=== PATIENT | female | born 1950 | race Caucasian/White ===

== ENCOUNTER → 2018-11-24 | Outpatient (CLI) | payer BC, MEDICARE ==
[2018-11-27 11:06] LABS: ANA Pattern Homogeneous
== END | disposition home or self-care (01) ==
LOC: LABWHC1 14:34
PROVIDERS: ATTEND Physician Assistant Medical
DX: L93.0 Discoid lupus erythematosus (principal)
CPT/HCPCS: 36415; 86038; 86039

== ENCOUNTER 2021-07-09 12:07 | Inpatient (IN) | payer MEDICARE, BC ==
--- NOTE | 2021-07-09 13:58 | ED ---
General Adult HPI - General Chief complaint: Upper Respiratory Infection Stated complaint: CICI Time Seen by Provider: 07/09/21 12:46 Source: patient Mode of arrival: EMS - History of Present Illness Initial comments: 71-year-old female presents to the emergency department as a transfer from [facility]. She was hospitalized there 6 weeks ago for pneumonia and sent to [facility] where they changed her pacemaker per . She is discharged home on antibiotics and has finished them at this time. Over the past day the patient has become more lethargic and confused. She normally uses 2L oxygen as needed. Patient went into [facility] and was found to be hypoxic. Laboratory studies were completed which were relatively unremarkable. Chest x-ray demonstrated right basilar opacities. Patient transferred to our facility due to need for higher level of oxygen. Patient is able to answer questions properly. Denies any chest pain. Admits to a nonproductive cough which has been chronic since her pneumonia diagnosis. No lower extremity swelling. No other alleviating, precipitating or modifying factors - Related Data Home Medications Medication Instructions Recorded Confirmed ALPRAZolam [Xanax] 1 mg PO TID PRN 07/09/21 07/09/21 Beets Supplement 500mg 500 mg PO DAILY 07/09/21 07/09/21 Cholecalciferol [Vitamin D3 (25 25 mcg PO DAILY 07/09/21 07/09/21 Mcg = 1000 Iu)] Collagen + Biotin 1 cap PO DAILY 07/09/21 07/09/21 Cyanocobalamin [Vitamin B-12] 500 mcg PO DAILY 07/09/21 07/09/21 Ferrous Gluconate 324 mg PO DAILY 07/09/21 07/09/21 Furosemide [Lasix] 40 mg PO DAILY 07/09/21 07/09/21 HYDROcodone/APAP 10-325MG [[place] 1 tab PO QID PRN 07/09/21 07/09/21 10-325] Hydroxychloroquine Sulfate 200 mg PO DAILY 07/09/21 07/09/21 [Plaquenil] Losartan [Cozaar] 50 mg PO DAILY 07/09/21 07/09/21 Simvastatin [Zocor] 20 mg PO DAILY 07/09/21 07/09/21 Spironolactone [Aldactone] 25 mg PO DAILY 07/09/21 07/09/21 Torsemide [Demadex] 20 mg PO DAILY 07/09/21 07/09/21 Warfarin [Coumadin] 2 mg PO DAILY 07/09/21 07/09/21 Zolpidem [Ambien] 10 mg PO HS 07/09/21 07/09/21 guaiFENesin-Coden 100-10MG/5ML 5 ml PO TID PRN 07/09/21 07/09/21 [Robitussin AC] minoxidiL 1.25 mg PO DAILY 07/09/21 07/09/21 Allergies Allergy/AdvReac Type Severity Reaction Status Date / Time SURGICAL TAPE Allergy BLISTERS Uncoded 07/09/21 16:05 Review of Systems ROS Statement: Those systems with pertinent positive or pertinent negative responses have been documented in the HPI. ROS Other: All systems not noted in ROS Statement are negative. Past Medical History Past Medical History: COPD - Past Family History Mother Family Medical History: Myocardial Infarction ([place]) Father Family Medical History: Myocardial Infarction ([place]) General Exam General appearance: alert, in no apparent distress Head exam: Present: atraumatic, normocephalic, normal inspection Eye exam: Present: normal appearance, PERRL, EOMI. Absent: scleral icterus, conjunctival injection, periorbital swelling ENT exam: Present: normal exam, mucous membranes moist Neck exam: Present: normal inspection. Absent: tenderness, meningismus, lymphadenopathy Respiratory exam: Present: rales, accessory muscle use, decreased breath sounds, other (deep, wet cough). Absent: respiratory distress, wheezes, rhonchi, stridor Cardiovascular Exam: Present: regular rate, normal rhythm, normal heart sounds. Absent: systolic murmur, diastolic murmur, rubs, gallop, clicks GI/Abdominal exam: Present: soft, normal bowel sounds. Absent: distended, tenderness, guarding, rebound, rigid Extremities exam: Present: normal inspection, full ROM, normal capillary refill. Absent: tenderness, pedal edema, joint swelling, calf tenderness Back exam: Present: normal inspection Neurological exam: Present: alert, oriented X3, CN II-XII intact Psychiatric exam: Present: normal affect, normal mood Skin exam: Present: warm, dry, intact, normal color. Absent: rash Course Vital Signs 07/09/21 07/09/21 07/09/21 12:13 14:27 15:07 Temperature 98.3 F Pulse Rate 71 71 71 Pulse Rate [ Pulse Oximetery ] Respiratory 20 14 Rate Blood Pressure 88/42 92/58 Blood Pressure [Left Arm] O2 Sat by Pulse 98 96 Oximetry 07/09/21 07/09/21 07/09/21 15:19 16:40 17:11 Temperature 98 F Pulse Rate 73 71 Pulse Rate [ 74 Pulse Oximetery ] Respiratory 16 28 H Rate Blood Pressure 97/52 Blood Pressure 93/44 [Left Arm] O2 Sat by Pulse 95 96 Oximetry 07/09/21 18:06 Temperature 97.8 F Pulse Rate 71 Pulse Rate [ Pulse Oximetery ] Respiratory 14 Rate Blood Pressure 84/44 Blood Pressure [Left Arm] O2 Sat by Pulse 98 Oximetry EKG Findings - EKG Comments: EKG Findings:: EKG demonstrates electronic ventricular pacemaker with a rate of 71. QRS 186. QTC of 501. Pacemaker captures appropriately. No acute ST segment elevations Medical Decision Making - Medical Decision Making Upon arrival patient was placed into room 27. A thorough history and physical exam was performed. I did view the patient's laboratory studies. She does arrive on 6 L nasal cannula and is saturating 96%. I did repeat laboratory studies and added on a BNP. Hemoglobin 9.8. Creatinine 1.78. BNP 5500. Chest x-ray had shown bibasilar opacities. I did follow this up with a CT of the chest which demonstrates prominent bilateral pulmonary abnormalities. I did order azithromycin and Zosyn on the patient as she was recently on antibiotics. I recommended admission and therefore I spoke with Dr. Leonardo who agreed to admit the patient. She remained in stable condition was transported to the floor - Lab Data Result diagrams: 07/12/21 04:21 07/12/21 04:21 Lab Results 07/09/21 07/09/21 07/09/21 Range/Units 14:08 14:08 14:08 WBC 9.6 (3.8-10.6) k/uL RBC 3.48 L (3.80-5.40) m/uL Hgb 9.8 L (11.4-16.0) gm/dL Hct 31.4 L (34.0-46.0) % MCV 90.0 (80.0-100.0) fL MCH 28.1 (25.0-35.0) pg MCHC 31.2 (31.0-37.0) g/dL RDW 13.7 (11.5-15.5) % Plt Count 179 (150-450) k/uL MPV 9.4 Neutrophils % (Manual) 67 % Band Neuts % (Manual) 11 % Lymphocytes % (Manual) 13 % Monocytes % (Manual) 6 % Basophils % (Manual) 1 % Metamyelocytes % 1 % Myelocytes % 1 % Neutrophils # (Manual) 7.40 (1.3-7.7) k/uL Lymphocytes # (Manual) 1.25 (1.0-4.8) k/uL Monocytes # (Manual) 0.58 (0-1.0) k/uL Basophils # (Manual) 0.10 (0-0.2) k/uL Metamyelocytes # (Man) 0.10 H (0) k/uL Myelocytes # (Manual) 0.10 H (0) k/uL Nucleated RBCs 0 (0-0) /100 WBC Manual Slide Review Performed Hypochromasia Slight Sodium 141 (137-145) mmol/L Potassium 4.6 (3.5-5.1) mmol/L Chloride 113 H (98-107) mmol/L Carbon Dioxide 19 L (22-30) mmol/L Anion Gap 9 mmol/L BUN 27 H (7-17) mg/dL Creatinine 1.78 H (0.52-1.04) mg/dL Est GFR (CKD-EPI)AfAm 32 (>60 ml/min/1.73 sqM) Est GFR (CKD-EPI)NonAf 28 (>60 ml/min/1.73 sqM) Glucose 106 H (74-99) mg/dL Calcium 8.3 L (8.4-10.2) mg/dL Total Bilirubin 0.6 (0.2-1.3) mg/dL AST 23 (14-36) U/L ALT 9 (4-34) U/L Alkaline Phosphatase 59 (38-126) U/L NT-Pro-B Natriuret Pep 5500 pg/mL Total Protein 6.2 L (6.3-8.2) g/dL Albumin 3.1 L (3.5-5.0) g/dL Disposition Clinical Impression: Pneumonia, Hypoxia, Recurrent pneumonia, Heart failure Disposition: ADMITTED IP TO THIS HOSP Condition: Stable Is patient prescribed a controlled substance at d/c from ED?: No Decision to Admit Reason: Admit from EC Decision Date: 07/09/21 Decision Time: 15:51
[2021-07-09 14:26] LABS: Albumin 3.1 g/dL (3.5-5.0); Calcium 8.3 mg/dL (8.4-10.2); Potassium 4.6 mmol/L (3.5-5.1); Total Bilirubin 0.6 mg/dL (0.2-1.3); Total Protein 6.2 g/dL (6.3-8.2)
[2021-07-09 14:34] LABS: HCT 31.4 % (34.0-46.0); HGB 9.8 gm/dL (11.4-16.0); Hypochromasia Slight; MCH 28.1 pg (25.0-35.0); MCHC 31.2 g/dL (31.0-37.0); Mean Platelet Volume 9.4; Platelet Count 179 k/uL (150-450); RBC 3.48 m/uL (3.80-5.40); RDW 13.7 % (11.5-15.5); WBC 9.6 k/uL (3.8-10.6)
[2021-07-09] MEDS ORDERED: IPRATROPIUM-ALBUTEROL 3 ML NEB INHALATION STA (14:38)
[2021-07-09 15:26] LABS: Band Neutrophils % 11 %; Lymphocytes # (M) 1.25 k/uL (1.0-4.8); Metamyelocytes % 1 %; Monocytes # (M) 0.58 k/uL (0-1.0); Myelocytes % 1 %; Neutrophils % (M) 67 %; Nucleated Red Blood Cells 0 /100 WBC (0-0); Total Cells Counted 100
[2021-07-09] MEDS ORDERED: PNEUMONIA PROTOCOL UTILIZED 1 EACH MISC PO PRN (15:51)
[2021-07-09] MEDS: AZITHROMYCIN 500 MG in SODIUM CHLORIDE 0.9% 250 ML IVPB SCH (16:33)
[2021-07-09] MEDS ORDERED: guaiFENesin-Coden 100-10MG/5ML 10 ML CUP PO PRN (17:21)
[2021-07-09] MEDS ORDERED: HYDROcodone/APAP 10-325MG 1 EACH TAB PO PRN (17:21)
[2021-07-09] MEDS ORDERED: ALPRAZolam 1 MG TAB PO PRN (17:21)
[2021-07-09] MEDS: PIPERACILLIN-TAZOBACTAM 3.375 GM in SODIUM CHLORIDE 0.9% 100 ML IVPB SCH (18:02)
--- NOTE | 2021-07-09 18:07 | CT ---
EXAMINATION TYPE: CT chest wo con DATE OF EXAM: 07/09/2021 COMPARISON: Outside chest radiographs 07/09/2021 HISTORY: 71 M abnormal xray, SOB CT DLP: 200.6 mGycm. Automated Exposure Control for Dose Reduction was Utilized. TECHNIQUE: CT scan of the thorax is performed without IV contrast. FINDINGS: AIRWAYS: Unremarkable. LUNGS: In the left lung base posteriorly there is dense consolidation with air bronchograms, affectin g approximately one third of the left lower lobe volume, this finding can correlate with a clinical d iagnosis of the left lower lobe bronchopneumonia. There are also scattered bilateral ill-defined added opacities in the bilateral upper and mid lung zo luis alfredo, with relative sparing of the right lower lobe, this nonspecific finding can correlate with a cli nical diagnosis of multifocal. There is no dependent interstitial pattern to suggest pulmonary edema. Post-CABG sutures and mediastinal clips, cardiac pacemaker, and mitral valve prosthesis noted. PLEURAL SPACES: There is no pleural effusion or pneumothorax seen. MEDIASTINUM: There is [id number] cardiomegaly with marked left atrial enlargement. There are le ft and right coronary calcifications.4 There is no pericardial effusion. Pulmonary arterial vasculatu re is dilated, which can correlate with pulmonary hypertension. SKELETAL STRUCTURES: No acute focal finding. OTHER: No additional significant abnormality is seen. IMPRESSION: 1. Prominent bilateral pulmonary abnormalities for which follow-up CT in 6 weeks is recommended to mary messina, unless indicated sooner a clinical basis. 2. Mediastinal findings as above.
--- NOTE | 2021-07-09 20:32 | HP ---
HISTORY AND PHYSICAL This is a 71-year-old white female who came from [place] with pneumonia. Six weeks ago at [facility] they had a pacemaker changed back then, discharged home on antibiotics. She became more lethargic and . She was admitted with severe lower lobe pneumonia in most of her lung, hypoxemia, transferred from [place]. CT of the chest clearly shows broad-spectrum pneumonia in her lower lobe. Fourteen-point review of systems: Cough, congestion, shortness of breath, dyspnea. Please see further orders. Past medical history: COPD. Medications: See list. They were reviewed. CT scan of the chest reviewed. Echo reviewed. Temperature 98.3, pulse 70 to 71, respiratory rate 20s to 16, blood pressure 80s to 90s over 40s to 50s, O2 96 to 98. Lungs with scattered rhonchi and wheeze. Cardiovascular S1, S2. weak, fatigued. Dry skin turgor. Dry mucous membranes. Labs were reviewed. Psych: Poor mood and affect. BUN is 27, creatinine 1.78. ASSESSMENT: 1. Pneumonia. 2. Hypoxemia. 3. Acute hypoxemic respiratory distress secondary to pneumonia. 4. Congestive heart failure. 5. Coronary artery disease. 6. Recurrent pneumonia. Broad-spectrum antibiotics include Zosyn, azithromycin. Infectious disease and pulmonary consults. Cardiology consult for CHF. MMNURIAL / SALTYN: [id number] /
[2021-07-09] MEDS: IPRATROPIUM-ALBUTEROL 3 ML NEB INHALATION SCH ×4 (20:53→23:54)
[2021-07-09] MEDS ORDERED: ZOLPIDEM 10 MG TAB PO SCH (21:00)
[2021-07-10] MEDS: ZOLPIDEM 5 MG TAB PO SCH ×2 (00:34→21:30)
[2021-07-10] MEDS: PIPERACILLIN-TAZOBACTAM 3.375 GM in SODIUM CHLORIDE 0.9% 100 ML IVPB SCH ×3 (00:55→16:48)
[2021-07-10] MEDS: IPRATROPIUM-ALBUTEROL 3 ML NEB INHALATION SCH ×5 (04:09→21:15)
[2021-07-10 06:56] LABS: Albumin 2.9 g/dL (3.5-5.0); Calcium 8.5 mg/dL (8.4-10.2); Potassium 4.3 mmol/L (3.5-5.1); Total Bilirubin 0.9 mg/dL (0.2-1.3); Total Protein 5.9 g/dL (6.3-8.2)
[2021-07-10 07:10] LABS: HCT 31.4 % (34.0-46.0); HGB 9.9 gm/dL (11.4-16.0); Hypochromasia Moderate; MCH 28.6 pg (25.0-35.0); MCHC 31.7 g/dL (31.0-37.0); MCV 90.2 fL (80.0-100.0); Mean Platelet Volume 10.8; Platelet Count 199 k/uL (150-450); RBC 3.48 m/uL (3.80-5.40); RDW 14.2 % (11.5-15.5); WBC 3.6 k/uL (3.8-10.6)
[2021-07-10] MEDS ORDERED: FUROSEMIDE 40 MG TAB PO SCH (09:00)
[2021-07-10] MEDS ORDERED: [UNRECOGNIZED DRUG - OTHER] PO SCH (09:00)
[2021-07-10] MEDS: minoxidiL 2.5 MG TAB PO SCH (09:13)
[2021-07-10] MEDS: HYDROXYCHLOROQUINE SULFATE 200 MG TAB PO SCH (09:13)
[2021-07-10] MEDS: SPIRONOLACTONE 25 MG TAB PO SCH (09:13)
[2021-07-10] MEDS: FERROUS SULFATE 325 MG TAB PO SCH (09:13)
[2021-07-10] MEDS: AZITHROMYCIN 500 MG in SODIUM CHLORIDE 0.9% 250 ML IVPB SCH (09:13)
[2021-07-10] MEDS: ATORVASTATIN 10 MG TAB PO SCH (09:13)
[2021-07-10] MEDS: CHOLECALCIFEROL 25 MCG (1000 IU) TABLET PO SCH (09:13)
[2021-07-10] MEDS: LOSARTAN 50 MG TAB PO SCH (09:13)
[2021-07-10] MEDS ORDERED: FUROSEMIDE 10 MG/ML 4 ML VIAL IV STA (09:25)
[2021-07-10 09:35] LABS: Band Neutrophils % 20 %; Basophils # (M) 0.04 k/uL (0-0.2); Eosinophils # (M) 0.04 k/uL (0-0.7); Lymphocytes # (M) 0.68 k/uL (1.0-4.8); Metamyelocytes # (M) 0.11 k/uL (0); Metamyelocytes % 3 %; Monocytes # (M) 0.18 k/uL (0-1.0); Myelocytes # (M) 0.07 k/uL (0); Myelocytes % 2 %; Neutrophils % (M) 52 %; Nucleated Red Blood Cells 0 /100 WBC (0-0); Total Cells Counted 200
--- NOTE | 2021-07-10 11:24 | CA ---
Transthoracic Echo Report Name: Argelia Nicholson Age: 71 Gender: F : 1950 Exam Date: 07/10/2021 08:46 Exam Location: [place] [facility] Ht (in): 65 Wt (lb): 134 Ordering Physician: Damaris Vyas Attending/Referring Phys: [id number], Lilliam Crtts Fiona Dutton, GIAN Procedure CPT: Indications: LV function Cardiac Hx: Technical Quality: Fair Contrast 1: Total Dose (mL): Contrast 2: Total Dose (mL): MEASUREMENTS (Male / Female) Normal Values 2D ECHO LV Diastolic Diameter PLAX 4.9 cm 4.2 - 5.9 / 3.9 - 5.3 cm LV Systolic Diameter PLAX 2.9 cm IVS Diastolic Thickness 1.2 cm 0.6 - 1.0 / 0.6 - 0.9 cm LVPW Diastolic Thickness 1.2 cm 0.6 - 1.0 / 0.6 - 0.9 cm LV Relative Wall Thickness 0.5 RV Internal Dim ED PLAX 3.6 cm LVOT Diameter 1.8 cm LA Systolic Diameter LX 5.2 cm 3.0 - 4.0 / 2.7 - 3.8 cm LA Volume 92.5 cm 18 - 58 / 22 - 52 cm M-MODE Aortic Root Diameter MM 2.9 cm AV Cusp Separation MM 1.9 cm DOPPLER AV Peak Velocity 251.5 cm/s AV Peak Gradient 25.3 mmHg AV Mean Velocity 172.0 cm/s AV Mean Gradient 13.8 mmHg AV Velocity Time Integral 44.8 cm LVOT Peak Velocity 211.5 cm/s LVOT Peak Gradient 17.9 mmHg AV Area Cont Eq pk 2.1 cm MV Peak Velocity 179.8 cm/s MV Peak Gradient 12.9 mmHg MV Mean Velocity 87.8 cm/s MV Mean Gradient 4.2 mmHg MV Velocity Time Integral 49.0 cm MV Area PHT 3.2 cm MV Deceleration Time 397.3 ms TR Peak Velocity 269.7 cm/s TR Peak Gradient 29.1 mmHg Right Ventricular Systolic Press 33.3 mmHg FINDINGS Left Ventricle Left ventricular ejection fraction is estimated at 60-65 %. Mildly increased septal wall thickness. Mildly increased posterior wall thickness. Right Ventricle Mild right ventricular dilatation. Right ventricular systolic pressure estimated at 33 mm hg. Right Atrium Normal right atrial size. Left Atrium Severely increased left atrial diameter. Severely increased left atrial volume. Mitral Valve Mild prosthetic mitral valve regurgitation. Mitral valve thickened. Aortic Valve Mild aortic stenosis with a peak gradient of 25 mmHg and a mean gradient of 14aortic valve sclerosis. mmHg. Tricuspid Valve Mild tricuspid regurgitation. Pulmonic Valve Pulmonic valve not well visualized. Pericardium No pericardial effusion. Aorta CONCLUSIONS #1. Mild concentric left ventricle hypertrophy with preserved LV function and apical motion of the septum probably related to previous open-heart surgery. #2. Status post mitral valve replacement. Mild mitral regurgitation. #3. Mild aortic stenosis with sclerosis of the valve leaflets. #4. Mild right ventricular dilatation and mild pulmonary hypertension. #5. Mild tricuspid regurgitation Previewed by: Dr. Valeri Dudley MD (Electronically Signed) Final Date: 10 July 2021 11:22
--- NOTE | 2021-07-10 12:05 | P.CNPUL ---
History of Present Illness Consult date: 07/10/21 Requesting physician: Sampson Person Reason for consult: dyspnea, cough, COPD, hypoxemia, pneumonia, abnormal CXR/CT Chief complaint: Shortness of breath and cough. History of present illness: Pulmonary consult dated 07/10/2021. 69-year-old female, poor historian, who apparently was sent to the emergency department, from [facility] for pneumonia. The patient was recently also at [facility], for a pacemaker procedure. The patient complains of increasing shortness of breath, cough, congestion, and low saturations. She typically uses oxygen at 2 L/m, as needed. She is a heavy smoker in the past. She was admitted with a left lower lobe. She's currently on 6 L nasal cannula. She is not receiving any IV fluids. White count 3.6, hemoglobin 9.9, hematocrit 31.4, and platelet count 199,000. Sodium 141, potassium 4.3, chlorides 108, CO2 20, anion gap 13, BUN 35, and creatinine 1.93. Troponins were 0.[address] showed significant consolidation in the left lung base. Other findings in the other lung contreras were noted. Review of Systems REVIEW OF SYSTEMS: CONSTITUTIONAL: [Negative.] NEUROLOGIC: [ Negative.] HEENT: [ Negative.] CARDIAC: [Negative.] PULMONARY: Shortness of breath, chest tightness, cough, wheezing, and phlegm production. GI: [Negative.] : [Negative.] RHEUMATOLOGIC: [ Negative.] IMMUNOLOGIC: [ Negative.] ENDOCRINE: [Negative. ] DERMATOLOGIC: [Negative.] Past Medical History Past Medical History: COPD History of Any Multi-Drug Resistant Organisms: None Reported Past Surgical History: Cardiac Valve Replacement, Heart Catheterization, Pacemaker Past Anesthesia/Blood Transfusion Reactions: No Reported Reaction Type of Cardiac Device: Permanent Pacemaker, AICD Device Placement Date:: may 2021 Past Psychological History: No Psychological Hx Reported Smoking Status: Former smoker - Past Family History Mother Family Medical History: Myocardial Infarction ([place]) Father Family Medical History: Myocardial Infarction ([place]) Medications and Allergies Home Medications Medication Instructions Recorded Confirmed Type ALPRAZolam [Xanax] 1 mg PO TID PRN 07/09/21 07/09/21 History Beets Supplement 500mg 500 mg PO DAILY 07/09/21 07/09/21 History Cholecalciferol [Vitamin D3 (25 25 mcg PO DAILY 07/09/21 07/09/21 History Mcg = 1000 Iu)] Collagen + Biotin 1 cap PO DAILY 07/09/21 07/09/21 History Cyanocobalamin [Vitamin B-12] 500 mcg PO DAILY 07/09/21 07/09/21 History Ferrous Gluconate 324 mg PO DAILY 07/09/21 07/09/21 History Furosemide [Lasix] 40 mg PO DAILY 07/09/21 07/09/21 History HYDROcodone/APAP 10-325MG [[place] 1 tab PO QID PRN 07/09/21 07/09/21 History 10-325] Hydroxychloroquine Sulfate 200 mg PO DAILY 07/09/21 07/09/21 History [Plaquenil] Losartan [Cozaar] 50 mg PO DAILY 07/09/21 07/09/21 History Simvastatin [Zocor] 20 mg PO DAILY 07/09/21 07/09/21 History Spironolactone [Aldactone] 25 mg PO DAILY 07/09/21 07/09/21 History Torsemide [Demadex] 20 mg PO DAILY 07/09/21 07/09/21 History Warfarin [Coumadin] 2 mg PO DAILY 07/09/21 07/09/21 History Zolpidem [Ambien] 10 mg PO HS 07/09/21 07/09/21 History guaiFENesin-Coden 100-10MG/5ML 5 ml PO TID PRN 07/09/21 07/09/21 History [Robitussin AC] minoxidiL 1.25 mg PO DAILY 07/09/21 07/09/21 History Allergies Allergy/AdvReac Type Severity Reaction Status Date / Time SURGICAL TAPE Allergy BLISTERS Uncoded 07/09/21 16:05 Physical Exam Osteopathic Statement: *. No significant issues noted on an osteopathic structural exam other than those noted in the History and Physical/Consult. Vitals: Vital Signs Temp Pulse Pulse Resp BP BP Pulse Ox 07/10/21 11:44 97.5 F L 74 27 H 90/51 95 07/10/21 11:03 72 07/10/21 10:41 72 07/10/21 10:06 72 24 102/53 96 07/10/21 09:12 97.8 F 71 26 H 91/43 98 07/10/21 08:00 84 26 H 07/10/21 07:49 82 07/10/21 04:24 73 07/10/21 04:16 92 L 07/10/21 04:13 71 07/10/21 04:00 71 18 136/84 93 L 07/10/21 02:00 18 07/10/21 00:00 97.5 F L 72 18 88/64 96 07/09/21 21:54 72 07/09/21 21:47 96 07/09/21 21:46 74 07/09/21 20:00 97.4 F L 75 20 90/44 95 07/09/21 18:06 97.8 F 71 14 84/44 98 07/09/21 17:11 98 F 74 28 H 93/44 96 07/09/21 16:40 71 16 97/52 95 07/09/21 15:19 73 07/09/21 15:07 71 07/09/21 14:27 71 14 92/58 96 07/09/21 12:13 98.3 F 71 20 88/42 98 Intake and Output 07/09/21 07/10/21 07/10/21 22:59 06:59 14:59 Intake Total 700 Balance 700 Intake: IV 100 Piperacillin-Tazobactam 3 100 .375 gm In Sodium Chloride 0.9% 100 ml @ 25 mls/hr IVPB Q8HR [facility] Rx# :[id number] Oral 600 Other: Voiding Method Bedpan # Voids 3 Weight 60.781 kg No acute distress, oriented 3. Saturations are 96% on BiPAP. HEENT examination is grossly unremarkable. Neck supple. Full range of motion. No adenopathy thyromegaly or neck vein distention. Cardiovascular examination reveals regular rhythm rate. S1-S2 normal. No S3 or S4. No discernible murmur noted. Heart sounds are very distant. Heart rate 74 bpm. Lungs reveal coarse bilateral inspiratory and expiratory rhonchi. No distinct wheezes or crackles. She is a very congested wet cough, which is quite frequent. Breath sounds are equal bilaterally. Abdomen soft bowel sounds are heard. No masses or tenderness. Extremities are intact. No cyanosis clubbing or edema. Skin is without rash or lesion. Neurologic examination is brief but nonfocal. Results - Laboratory Findings CBC and BMP: 07/10/21 05:26 07/10/21 05:26 Abnormal lab findings: Abnormal Labs 07/09/21 07/09/21 07/10/21 14:08 14:08 05:26 WBC 3.6 L RBC 3.48 L 3.48 L Hgb 9.8 L 9.9 L Hct 31.4 L 31.4 L Lymphocytes # (Manual) 0.68 L Metamyelocytes # (Man) 0.10 H 0.11 H Myelocytes # (Manual) 0.10 H 0.07 H Chloride 113 H Carbon Dioxide 19 L BUN 27 H Creatinine 1.78 H Glucose 106 H Calcium 8.3 L Troponin I Total Protein 6.2 L Albumin 3.1 L 07/10/21 07/10/21 07/10/21 05:26 05:26 08:30 WBC RBC Hgb Hct Lymphocytes # (Manual) Metamyelocytes # (Man) Myelocytes # (Manual) Chloride 108 H Carbon Dioxide 20 L BUN 35 H Creatinine 1.93 H Glucose Calcium Troponin I 0.545 H* 0.551 H* Total Protein 5.9 L Albumin 2.9 L - Diagnostic Findings Chest x-ray: image reviewed CT scan - chest: image reviewed Assessment and Plan Assessment: Acute hypoxemic respiratory failure secondary to left lower lobe pneumonia. History of COPD from previous significant tobacco use. History of hypertension. History of hyperlipidemia. Status post pacemaker implantation. Vague history of CHF. Plan: Plan dated 07/10/2021. Currently, the patient's on azithromycin and Zosyn. The patient is also getting any treatments with albuterol sulfate and ipratropium bromide. We will continue to follow make recommendations were appropriate. Prognosis is certainly guarded. The CAT scan, x-rays, and medications are all reviewed. The patient should have outpatient evaluation of her chronic lung disease once she is better and is discharged. Infectious disease should see this patient. Time with Patient: Greater than 30
--- NOTE | 2021-07-10 12:08 | P.CRDCN ---
History of Present Illness Consult date: 07/10/21 History of present illness: HISTORY OF PRESENT ILLNESS: This is a 71-year-old female with a past medical history significant for congestive heart failure, hyperlipidemia, hypertension, and pacemaker insertion. 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 We have been asked to see the patient in consultation for congestive heart failure. Patient examined at the bedside. Patient presented to the hospital secondary to shortness of breath. Patient denies chest pain or pressure. She denies dizziness or lightheadedness. She reports shortness of breath this morning time of examination. She has a frequent cough noted during examination. * EKG reveals ventricular paced rhythm with underlying atrial fibrillation * CT chest: Prominent bilateral pulmonary abnormalities for which CT follow-up in 6 weeks is recommended to further characterize. Possible left lower lobe bronchopneumonia * Laboratory data: WBC 3.6. Hemoglobin 9.9. Platelet count 199. Sodium 141. Potassium 4.3. BUN 35. Creatinine 1.93. Troponin 0.545. ProBNP 5500. * Current home cardiac medications include Coumadin 2 mg daily, Demadex 20 mg daily, Aldactone 25 mg daily, Zocor 20 mg daily, losartan 50 mg daily, Lasix 40 mg daily, and Minoxidil 1.25 mg daily REVIEW OF SYSTEMS: At the time of my exam: CONSTITUTIONAL: Denies fever or chills. HEENT: Denies blurred vision, vision changes, or eye pain. Denies hemoptysis CARDIOVASCULAR: Denies chest pain. Denies orthopnea. Denies PND. Denies palpitations RESPIRATORY: Denies shortness of breath. GASTROINTESTINAL: Denies abdominal pain. Denies nausea or vomiting. HEMATOLOGIC: Denies bleeding disorders. GENITOURINARY: Denies any blood in urine. SKIN: Denies pruitis. Denies rash. PHYSICAL EXAM: VITAL SIGNS: Reviewed. GENERAL: Well-developed in no acute distress. HEENT: Head is normocephalic. Pupils are equal, round. Sclerae anicteric. Mucous membranes of the mouth are moist. Neck supple. No JVD or thyromegaly LUNGS: Respirations even and unlabored. Lungs diminished with rhonchi HEART: Regular rate and rhythm. S1 and S2 heard. ABDOMEN: Soft. Nondistended. Nontender. EXTREMITIES: Normal range of motion. No clubbing or cyanosis. Peripheral pulses intact. Trace lower extremity edema NEUROLOGIC: Awake and alert. ASSESSMENT: Shortness of breath Recurrent pneumonia Acute hypoxic respiratory failure Acute kidney injury, baseline unknown Abnormal troponins, likely secondary to type II CA, no evidence of acute coronary syndrome Acute on chronic congestive heart failure, type unknown, echo pending Coronary artery disease with previous CABG Hypertension Hyperlipidemia History of pacemaker insertion Paroxysmal atrial fibrillation PLAN: Obtain 2-D echo to assess cardiac structure and function Resume home cardiac medications Increase Lasix to 60 mg by mouth daily Pulmonary consulted for evaluation of pneumonia Further recommendations pending patient's course Nurse practitioner note has been reviewed by physician. Signing provider agrees with the documented findings, assessment, and plan of care. Past Medical History Past Medical History: COPD History of Any Multi-Drug Resistant Organisms: None Reported Past Surgical History: Cardiac Valve Replacement, Heart Catheterization, Pacemaker Past Anesthesia/Blood Transfusion Reactions: No Reported Reaction Type of Cardiac Device: Permanent Pacemaker, AICD Device Placement Date:: may 2021 Past Psychological History: No Psychological Hx Reported Smoking Status: Former smoker - Past Family History Mother Family Medical History: Myocardial Infarction ([place]) Father Family Medical History: Myocardial Infarction ([place]) Medications and Allergies Home Medications Medication Instructions Recorded Confirmed Type ALPRAZolam [Xanax] 1 mg PO TID PRN 07/09/21 07/09/21 History Beets Supplement 500mg 500 mg PO DAILY 07/09/21 07/09/21 History Cholecalciferol [Vitamin D3 (25 25 mcg PO DAILY 07/09/21 07/09/21 History Mcg = 1000 Iu)] Collagen + Biotin 1 cap PO DAILY 07/09/21 07/09/21 History Cyanocobalamin [Vitamin B-12] 500 mcg PO DAILY 07/09/21 07/09/21 History Ferrous Gluconate 324 mg PO DAILY 07/09/21 07/09/21 History Furosemide [Lasix] 40 mg PO DAILY 07/09/21 07/09/21 History HYDROcodone/APAP 10-325MG [[place] 1 tab PO QID PRN 07/09/21 07/09/21 History 10-325] Hydroxychloroquine Sulfate 200 mg PO DAILY 07/09/21 07/09/21 History [Plaquenil] Losartan [Cozaar] 50 mg PO DAILY 07/09/21 07/09/21 History Simvastatin [Zocor] 20 mg PO DAILY 07/09/21 07/09/21 History Spironolactone [Aldactone] 25 mg PO DAILY 07/09/21 07/09/21 History Torsemide [Demadex] 20 mg PO DAILY 07/09/21 07/09/21 History Warfarin [Coumadin] 2 mg PO DAILY 07/09/21 07/09/21 History Zolpidem [Ambien] 10 mg PO HS 07/09/21 07/09/21 History guaiFENesin-Coden 100-10MG/5ML 5 ml PO TID PRN 07/09/21 07/09/21 History [Robitussin AC] minoxidiL 1.25 mg PO DAILY 07/09/21 07/09/21 History Allergies Allergy/AdvReac Type Severity Reaction Status Date / Time SURGICAL TAPE Allergy BLISTERS Uncoded 07/09/21 16:05 Physical Exam Vitals: Vital Signs Temp Pulse Pulse Resp BP BP Pulse Ox 07/10/21 08:00 84 07/10/21 07:49 82 07/10/21 04:24 73 07/10/21 04:16 92 L 07/10/21 04:13 71 07/10/21 04:00 71 18 136/84 93 L 07/10/21 02:00 18 07/10/21 00:00 97.5 F L 72 18 88/64 96 07/09/21 21:54 72 07/09/21 21:47 96 07/09/21 21:46 74 07/09/21 20:00 97.4 F L 75 20 90/44 95 07/09/21 18:06 97.8 F 71 14 84/44 98 07/09/21 17:11 98 F 74 28 H 93/44 96 07/09/21 16:40 71 16 97/52 95 07/09/21 15:19 73 07/09/21 15:07 71 07/09/21 14:27 71 14 92/58 96 07/09/21 12:13 98.3 F 71 20 88/42 98 Intake and Output 07/09/21 07/10/21 07/10/21 22:59 06:59 14:59 Intake Total 700 Balance 700 Intake: IV 100 Piperacillin-Tazobactam 3 100 .375 gm In Sodium Chloride 0.9% 100 ml @ 25 mls/hr IVPB Q8HR [facility] Rx# :[id number] Oral 600 Other: # Voids 3 Weight 60.781 kg Results 07/10/21 05:26 07/10/21 05:26 Cardiac Enzymes 07/09/21 07/10/21 07/10/21 Range/Units 14:08 05:26 05:26 AST 23 23 (14-36) U/L Troponin I 0.545 H* (0.000-0.034) ng/mL CBC 07/09/21 07/10/21 Range/Units 14:08 05:26 WBC 9.6 3.6 L (3.8-10.6) k/uL RBC 3.48 L 3.48 L (3.80-5.40) m/uL Hgb 9.8 L 9.9 L (11.4-16.0) gm/dL Hct 31.4 L 31.4 L (34.0-46.0) % Plt Count 179 199 (150-450) k/uL Comprehensive Metabolic Panel 07/09/21 07/10/21 Range/Units 14:08 05:26 Sodium 141 141 (137-145) mmol/L Potassium 4.6 4.3 (3.5-5.1) mmol/L Chloride 113 H 108 H (98-107) mmol/L Carbon Dioxide 19 L 20 L (22-30) mmol/L BUN 27 H 35 H (7-17) mg/dL Creatinine 1.78 H 1.93 H (0.52-1.04) mg/dL Glucose 106 H 95 (74-99) mg/dL Calcium 8.3 L 8.5 (8.4-10.2) mg/dL AST 23 23 (14-36) U/L ALT 9 11 (4-34) U/L Alkaline Phosphatase 59 56 (38-126) U/L Total Protein 6.2 L 5.9 L (6.3-8.2) g/dL Albumin 3.1 L 2.9 L (3.5-5.0) g/dL Current Medications Generic Name Dose Route Start Last Admin Trade Name Freq PRN Reason Stop Dose Admin Acetaminophen 650 mg 07/09/21 15:51 Acetaminophen Tab 325 Mg Tab PO Q4HR PRN Fever and/ or Pain Hydrocodone Bitart/Acetaminophen 1 each 07/09/21 17:21 Hydrocodone/Apap 10-325mg 1 Each Tab PO QID PRN Pain Albuterol/Ipratropium 3 ml 07/09/21 16:00 07/10/21 07:49 Ipratropium-Albuterol 3 Ml Neb INHALATION 3 ml RT-Q4H [facility] Administration Alprazolam 1 mg 07/09/21 17:21 Alprazolam 1 Mg Tab PO TID PRN Anxiety Atorvastatin Calcium 10 mg 07/10/21 09:00 Atorvastatin 10 Mg Tab PO DAILY [facility] Cholecalciferol 25 mcg 07/10/21 09:00 Cholecalciferol 25 Mcg (1000 Iu) Tablet PO DAILY [facility] Ferrous Sulfate 325 mg 07/10/21 09:00 Ferrous Sulfate 325 Mg Tab PO DAILY [facility] Furosemide 40 mg 07/10/21 09:00 Furosemide 40 Mg Tab PO DAILY [facility] Guaifenesin/Codeine Phosphate 5 ml 07/09/21 17:21 Guaifenesin-Coden 100-10mg/5ml 10 Ml Cup PO TID PRN Cough Hydroxychloroquine Sulfate 200 mg 07/10/21 09:00 Hydroxychloroquine Sulfate 200 Mg Tab PO DAILY [facility] Piperacillin Sod/Tazobactam 100 mls @ 25 mls/hr 07/09/21 16:00 07/10/21 00:55 Sod 3.375 gm/ Sodium Chloride IVPB 07/14/21 16:01 25 mls/hr Q8HR [facility] Administration Protocol Azithromycin 500 mg/ Sodium 250 mls @ 250 mls/hr 07/10/21 09:00 Chloride IVPB 07/11/21 09:59 DAILY [facility] Protocol Losartan Potassium 50 mg 07/10/21 09:00 Losartan 50 Mg Tab PO DAILY [facility] Minoxidil 1.25 mg 07/10/21 09:00 Minoxidil 2.5 Mg Tab PO DAILY [facility] Miscellaneous Information 1 each 07/09/21 15:51 Pneumonia Protocol Utilized 1 Each Misc PO ONCE PRN Per Protocol Spironolactone 25 mg 07/10/21 09:00 Spironolactone 25 Mg Tab PO DAILY [facility] Zolpidem Tartrate 10 mg 07/09/21 21:45 07/10/21 00:34 Zolpidem 5 Mg Tab PO Not Given HS [facility] Intake and Output 07/09/21 07/10/21 07/10/21 22:59 06:59 14:59 Intake Total 700 Balance 700 Intake: IV 100 Piperacillin-Tazobactam 3 100 .375 gm In Sodium Chloride 0.9% 100 ml @ 25 mls/hr IVPB Q8HR [facility] Rx# :[id number] Oral 600 Other: # Voids 3 Weight 60.781 kg 07/10/21 05:26 07/10/21 05:26
[2021-07-10 13:04] LABS: INR 1.4 (<1.2); Prothrombin Time 14.6 sec (9.0-12.0)
[2021-07-10 13:49] LABS: ABG Base Excess -8.4 mmol/L; ABG HCO3 19 mmol/L (21-25); ABG Oxygen Saturation 93.4 % (94-97); ABG PCO2 43 mmHg (35-45); ABG PH 7.25 (7.35-7.45); ABG PO2 70 mmHg (83-108); ABG TCO2 20 mmol/L (19-24); Allen Test Performed? Yes
[2021-07-10] MEDS ORDERED: WARFARIN 3 MG TAB PO ONE (18:00)
--- NOTE | 2021-07-10 23:40 | P.CONS ---
History of Present Illness - Reason for Consult Consult date: 07/10/21 HAP Requesting physician: Sampson Person - Chief Complaint Shortness of breath x few days - History of Present Illness Patient is a 71-year female with a past medical history significant for COPD recent admission at [facility] few weeks ago the patient was treated for pneumonia and the patient also have a pacemaker changed patient was discharged home on oral antibiotics the patient has completed however there has been mention the patient continued to have a problem with shortness of breath and cough the day of presentation to the hospital patient did have worsening of shortness of breath and she was not able to breathe EMS was called and the patient was taken to the [facility] the patient was noticed to be hypoxic chest x-ray with right basilar opacity patient was subsequently transferred to [facility] for further care on presentation to the hospital the patient was afebrile and no fever have been recorded subsequently patient did have a normal white count BNK was mildly elevated liver enzymes are normal troponins were elevated [place] PCR was negative blood cultures obtained which are currently pending patient did have a CT of the chest with mild to moderate cardiomegaly with marked atrial enlargement bilateral pulmonary abnormalities with a dense consolidation with air bronchogram left base patient was admitted to the hospital infectious disease was consulted for further management of antibiotic therapy most information has been obtained from the and review the chart at the patient was not able to provide any history Review of Systems Positive points has been mentioned in HPI complete review could not be obtained because of his underlying mental status Past Medical History Past Medical History: COPD History of Any Multi-Drug Resistant Organisms: None Reported Past Surgical History: Cardiac Valve Replacement, Heart Catheterization, Pacemaker Past Anesthesia/Blood Transfusion Reactions: No Reported Reaction Type of Cardiac Device: Permanent Pacemaker, AICD Device Placement Date:: may 2021 Past Psychological History: No Psychological Hx Reported Smoking Status: Former smoker - Past Family History Mother Family Medical History: Myocardial Infarction ([place]) Father Family Medical History: Myocardial Infarction ([place]) Medications and Allergies Home Medications Medication Instructions Recorded Confirmed Type ALPRAZolam [Xanax] 1 mg PO TID PRN 07/09/21 07/09/21 History Beets Supplement 500mg 500 mg PO DAILY 07/09/21 07/09/21 History Cholecalciferol [Vitamin D3 (25 25 mcg PO DAILY 07/09/21 07/09/21 History Mcg = 1000 Iu)] Collagen + Biotin 1 cap PO DAILY 07/09/21 07/09/21 History Cyanocobalamin [Vitamin B-12] 500 mcg PO DAILY 07/09/21 07/09/21 History Ferrous Gluconate 324 mg PO DAILY 07/09/21 07/09/21 History Furosemide [Lasix] 40 mg PO DAILY 07/09/21 07/09/21 History HYDROcodone/APAP 10-325MG [[place] 1 tab PO QID PRN 07/09/21 07/09/21 History 10-325] Hydroxychloroquine Sulfate 200 mg PO DAILY 07/09/21 07/09/21 History [Plaquenil] Losartan [Cozaar] 50 mg PO DAILY 07/09/21 07/09/21 History Simvastatin [Zocor] 20 mg PO DAILY 07/09/21 07/09/21 History Spironolactone [Aldactone] 25 mg PO DAILY 07/09/21 07/09/21 History Torsemide [Demadex] 20 mg PO DAILY 07/09/21 07/09/21 History Warfarin [Coumadin] 2 mg PO DAILY 07/09/21 07/09/21 History Zolpidem [Ambien] 10 mg PO HS 07/09/21 07/09/21 History guaiFENesin-Coden 100-10MG/5ML 5 ml PO TID PRN 07/09/21 07/09/21 History [Robitussin AC] minoxidiL 1.25 mg PO DAILY 07/09/21 07/09/21 History Allergies Allergy/AdvReac Type Severity Reaction Status Date / Time SURGICAL TAPE Allergy BLISTERS Uncoded 07/09/21 16:05 Physical Exam Vitals: Vital Signs Temp Pulse Pulse Resp BP BP Pulse Ox 07/10/21 11:44 97.5 F L 74 27 H 90/51 95 07/10/21 11:03 72 07/10/21 10:41 72 07/10/21 10:06 72 24 102/53 96 07/10/21 09:12 97.8 F 71 26 H 91/43 98 07/10/21 08:00 84 26 H 07/10/21 07:49 82 07/10/21 04:24 73 07/10/21 04:16 92 L 07/10/21 04:13 71 07/10/21 04:00 71 18 136/84 93 L 07/10/21 02:00 18 07/10/21 00:00 97.5 F L 72 18 88/64 96 07/09/21 21:54 72 07/09/21 21:47 96 07/09/21 21:46 74 07/09/21 20:00 97.4 F L 75 20 90/44 95 07/09/21 18:06 97.8 F 71 14 84/44 98 07/09/21 17:11 98 F 74 28 H 93/44 96 07/09/21 16:40 71 16 97/52 95 07/09/21 15:19 73 07/09/21 15:07 71 07/09/21 14:27 71 14 92/58 96 Intake and Output 07/09/21 07/10/21 07/10/21 22:59 06:59 14:59 Intake Total 700 Balance 700 Intake: IV 100 Piperacillin-Tazobactam 3 100 .375 gm In Sodium Chloride 0.9% 100 ml @ 25 mls/hr IVPB Q8HR [facility] Rx# :[id number] Oral 600 Other: Voiding Method Bedpan # Voids 3 Weight 60.781 kg GENERAL DESCRIPTION: Elderly female lying in bed, mild distress on BiPAP. HEENT: Shows Pallor , no scleral icterus. Oral mucous membrane is dry. No pharyngeal erythema or thrush NECK: Trachea central, no thyromegaly. LUNGS: Unlabored breathing. Decreased intensity of breath sounds. No wheeze or crackle. HEART: S1, S2, regular rate and rhythm. No loud murmur ABDOMEN: Soft, no tenderness , guarding or rigidity, no organomegaly EXTREMITIES: No edema of feet. SKIN: No rash, no masses palpable. NEUROLOGICAL: The patient is lethargic orientation could not be determined Results CBC & Chem 7: 07/10/21 05:26 07/10/21 05:26 Labs: Abnormal Lab Results - Last 24 Hours (Table) 07/09/21 07/09/21 07/10/21 Range/Units 14:08 14:08 05:26 WBC 3.6 L (3.8-10.6) k/uL RBC 3.48 L 3.48 L (3.80-5.40) m/uL Hgb 9.8 L 9.9 L (11.4-16.0) gm/dL Hct 31.4 L 31.4 L (34.0-46.0) % Lymphocytes # (Manual) 0.68 L (1.0-4.8) k/uL Metamyelocytes # (Man) 0.10 H 0.11 H (0) k/uL Myelocytes # (Manual) 0.10 H 0.07 H (0) k/uL Chloride 113 H (98-107) mmol/L Carbon Dioxide 19 L (22-30) mmol/L BUN 27 H (7-17) mg/dL Creatinine 1.78 H (0.52-1.04) mg/dL Glucose 106 H (74-99) mg/dL Calcium 8.3 L (8.4-10.2) mg/dL Troponin I (0.000-0.034) ng/mL Total Protein 6.2 L (6.3-8.2) g/dL Albumin 3.1 L (3.5-5.0) g/dL 07/10/21 07/10/21 07/10/21 Range/Units 05:26 05:26 08:30 WBC (3.8-10.6) k/uL RBC (3.80-5.40) m/uL Hgb (11.4-16.0) gm/dL Hct (34.0-46.0) % Lymphocytes # (Manual) (1.0-4.8) k/uL Metamyelocytes # (Man) (0) k/uL Myelocytes # (Manual) (0) k/uL Chloride 108 H (98-107) mmol/L Carbon Dioxide 20 L (22-30) mmol/L BUN 35 H (7-17) mg/dL Creatinine 1.93 H (0.52-1.04) mg/dL Glucose (74-99) mg/dL Calcium (8.4-10.2) mg/dL Troponin I 0.545 H* 0.551 H* (0.000-0.034) ng/mL Total Protein 5.9 L (6.3-8.2) g/dL Albumin 2.9 L (3.5-5.0) g/dL Microbiology - Last 24 Hours (Table) 07/10/21 04:23 Sputum Culture - Preliminary Sputum Assessment and Plan (1) Pneumonia Current Visit: Yes Status: Acute Code(s): J18.9 - PNEUMONIA, UNSPECIFIED ORGANISM SNOMED Code(s): 181092318 Plan: 1patient presented to hospital with acute respiratory failure with in this patient did have hypoxemia increasing shortness of breath and cough with evidenc e of left lower lobe pneumonia on the CT and recently admitted and treated at [facility] having intercourse for the gram-negative pathogen. 2blood and sputum culture has been obtained and those will be followed 3patient to continue with Zosyn 3.375 g every 8 hours We will follow on clinical condition and cultures to further adjust medication if needed Thank you for this consultation will follow this patient along with you
[2021-07-10] MEDS ORDERED: SODIUM CHLORIDE 0.9% 500 ML 500 ML IV ONE (23:48)
[2021-07-10 23:58] LABS: Glucose,Whole Blood 87 mg/dL (75-99)
[2021-07-11 00:36] LABS: ABG Base Excess -7.4 mmol/L; ABG HCO3 20 mmol/L (21-25); ABG Oxygen Saturation 89.7 % (94-97); ABG PCO2 43 mmHg (35-45); ABG PH 7.27 (7.35-7.45); ABG PO2 61 mmHg (83-108); ABG TCO2 21 mmol/L (19-24); Allen Test Performed? Yes
[2021-07-11] MEDS: IPRATROPIUM-ALBUTEROL 3 ML NEB INHALATION SCH ×6 (00:46→19:28)
[2021-07-11 01:26] LABS: Glucose,Whole Blood 79 mg/dL (75-99)
[2021-07-11] MEDS ORDERED: NALOXONE 0.4 MG/ML 1 ML VIAL IV PRN (01:53)
[2021-07-11] MEDS: PIPERACILLIN-TAZOBACTAM 3.375 GM in SODIUM CHLORIDE 0.9% 100 ML IVPB SCH ×4 (02:30→23:55)
[2021-07-11 02:48] LABS: HCT 32.1 % (34.0-46.0); HGB 10.1 gm/dL (11.4-16.0); Hypochromasia Moderate; MCH 28.3 pg (25.0-35.0); MCHC 31.3 g/dL (31.0-37.0); MCV 90.3 fL (80.0-100.0); Mean Platelet Volume 11.3; Platelet Count 248 k/uL (150-450); RBC 3.56 m/uL (3.80-5.40); RDW 14.2 % (11.5-15.5); WBC 12.5 k/uL (3.8-10.6)
[2021-07-11 03:10] LABS: Calcium 8.5 mg/dL (8.4-10.2); Magnesium 1.6 mg/dL (1.6-2.3)
--- NOTE | 2021-07-11 03:20 | XR ---
EXAMINATION TYPE: XR chest 1V portable DATE OF EXAM: 07/11/2021 COMPARISON: 07/09/2021 HISTORY: Short of breath TECHNIQUE: Single view FINDINGS: There is extensive opacification left hemithorax. Heart is shifted to the left side. There is coarse interstitial infiltrates throughout the right lung. There is left axillary pacemaker. There is cardiac valve surgery. IMPRESSION: Extensive consolidation and volume loss in the left hemithorax which is mostly new compar ed to recent exam. There is probably significant left pulmonary atelectasis. There is extensive pulmo nary interstitial infiltrate on the right side unchanged. There is probably underlying pulmonary fibr osis.
[2021-07-11 04:13] LABS: Band Neutrophils % 15 %; Lymphocytes # (M) 1.38 k/uL (1.0-4.8); Monocytes # (M) 0.88 k/uL (0-1.0); Neutrophils % (M) 67 %; Nucleated Red Blood Cells 0 /100 WBC (0-0); Total Cells Counted 100
[2021-07-11 06:57] LABS: INR 1.6 (<1.2)
[2021-07-11] MEDS: minoxidiL 2.5 MG TAB PO SCH (08:56)
[2021-07-11] MEDS: LOSARTAN 50 MG TAB PO SCH (08:57)
[2021-07-11] MEDS ORDERED: FUROSEMIDE 20 MG TAB PO SCH (09:00)
[2021-07-11] MEDS: CHOLECALCIFEROL 25 MCG (1000 IU) TABLET PO SCH (09:23)
[2021-07-11] MEDS: ATORVASTATIN 10 MG TAB PO SCH (09:23)
[2021-07-11] MEDS: FERROUS SULFATE 325 MG TAB PO SCH (09:23)
--- NOTE | 2021-07-11 09:25 | P.PN ---
Subjective Progress Note Date: 07/11/21 Principal diagnosis: Shortness of breath. Pulmonary consult dated 07/10/2021. 69-year-old female, poor historian, who apparently was sent to the emergency department, from [facility] for pneumonia. The patient was recently also at [facility], for a pacemaker procedure. The patient complains of increasing shortness of breath, cough, congestion, and low saturations. She typically uses oxygen at 2 L/m, as needed. She is a heavy smoker in the past. She was admitted with a left lower lobe. She's currently on 6 L nasal cannula. She is not receiving any IV fluids. White count 3.6, hemoglobin 9.9, hematocrit 31.4, and platelet count 199,000. Sodium 141, potassium 4.3, chlorides 108, CO2 20, anion gap 13, BUN 35, and creatinine 1.93. Troponins were 0.[address] showed significant consolidation in the left lung base. Other findings in the other lung contreras were noted. Progress note dated 07/11/2021. 71-year-old female seen yesterday in consultation. She apparently was sent into the emergency department from [facility] for pneumonia. The patient came in complaining of shortness of breath, cough, chest congestion, and low saturations. Last night, right around midnight or so, her respiratory status worsened, and she was transferred to the intensive care unit, and placed on BiPAP. Currently, her BiPAP settings are 12/5 and 70%. She's not receiving any IV fluids. The patient is on Zosyn and azithromycin. Chest x-ray shows significant opacification of the left lung. I recommend significant chest physiotherapy. White count 12.5, hemoglobin 10.1, hematocrit 32.1, and platelet count 248,000. PT was 16 with an INR 1.6. Blood gases show pO2 of 61, pCO2 43, and pH is 7.27. This was apparently on 35% oxygen. Sodium 141, potassium 4, chlorides 112, CO2 21, BUN 42, and creatinine 1.60. Troponin 0.354. Chest x- ray shows extensive consolidation and volume loss in the left hemithorax. Objective - Vital Signs Vital signs: Vital Signs Temp 99.1 F 07/11/21 04:00 Pulse 73 07/11/21 07:20 Resp 26 H 07/11/21 07:00 BP 101/46 07/11/21 07:00 Pulse Ox 97 07/11/21 07:00 Intake & Output 07/10/21 07/11/21 07/11/21 18:59 06:59 18:59 Intake Total 200 Output Total 1450 1150 60 Balance -1450 -950 -60 Intake: IV 100 Piperacillin-Tazobactam 3 100 .375 gm In Sodium Chloride 0.9% 100 ml @ 25 mls/hr IVPB Q8HR [facility] Rx# :[id number] Oral 100 Output: Urine 1450 1150 60 Other: Voiding Method Indwelling Catheter Indwelling Catheter - Exam Currently on BiPAP. Somewhat lethargic. HEENT examination is grossly unremarkable. Neck supple. Full range of motion. No adenopathy thyromegaly or neck vein distention. Cardiovascular examination reveals regular rhythm rate. S1-S2 normal. No S3 or S4. No discernible murmur noted. Heart sounds are very distant. Heart rate 73 bpm. Lungs reveal coarse bilateral inspiratory and expiratory rhonchi. No distinct wheezes or crackles. She is a very congested wet cough, which is quite frequent. Breath sounds are equal bilaterally. Saturations are 97%. Abdomen soft bowel sounds are heard. No masses or tenderness. Extremities are intact. No cyanosis clubbing or edema. Skin is without rash or lesion. Neurologic examination is brief but nonfocal. - Labs CBC & Chem 7: 07/11/21 00:38 07/11/21 00:38 Labs: Abnormal Lab Results - Last 24 Hours (Table) 07/10/21 07/10/21 07/10/21 Range/Units 05:26 08:30 11:20 WBC (3.8-10.6) k/uL RBC (3.80-5.40) m/uL Hgb (11.4-16.0) gm/dL Hct (34.0-46.0) % Neutrophils # (Manual) (1.3-7.7) k/uL Lymphocytes # (Manual) 0.68 L (1.0-4.8) k/uL Metamyelocytes # (Man) 0.11 H (0) k/uL Myelocytes # (Manual) 0.07 H (0) k/uL PT (9.0-12.0) sec INR (<1.2) ABG pH (7.35-7.45) ABG pO2 (83-108) mmHg ABG HCO3 (21-25) mmol/L ABG O2 Saturation (94-97) % Chloride (98-107) mmol/L Carbon Dioxide (22-30) mmol/L BUN (7-17) mg/dL Creatinine (0.52-1.04) mg/dL Troponin I 0.551 H* 0.409 H* (0.000-0.034) ng/mL 07/10/21 07/10/21 07/11/21 Range/Units 12:36 13:35 00:34 WBC (3.8-10.6) k/uL RBC (3.80-5.40) m/uL Hgb (11.4-16.0) gm/dL Hct (34.0-46.0) % Neutrophils # (Manual) (1.3-7.7) k/uL Lymphocytes # (Manual) (1.0-4.8) k/uL Metamyelocytes # (Man) (0) k/uL Myelocytes # (Manual) (0) k/uL PT 14.6 H (9.0-12.0) sec INR 1.4 H (<1.2) ABG pH 7.25 L 7.27 L (7.35-7.45) ABG pO2 70 L 61 L (83-108) mmHg ABG HCO3 19 L 20 L (21-25) mmol/L ABG O2 Saturation 93.4 L 89.7 L (94-97) % Chloride (98-107) mmol/L Carbon Dioxide (22-30) mmol/L BUN (7-17) mg/dL Creatinine (0.52-1.04) mg/dL Troponin I (0.000-0.034) ng/mL 07/11/21 07/11/21 07/11/21 Range/Units 00:38 00:38 00:38 WBC 12.5 H (3.8-10.6) k/uL RBC 3.56 L (3.80-5.40) m/uL Hgb 10.1 L (11.4-16.0) gm/dL Hct 32.1 L (34.0-46.0) % Neutrophils # (Manual) 10.20 H (1.3-7.7) k/uL Lymphocytes # (Manual) (1.0-4.8) k/uL Metamyelocytes # (Man) (0) k/uL Myelocytes # (Manual) (0) k/uL PT (9.0-12.0) sec INR (<1.2) ABG pH (7.35-7.45) ABG pO2 (83-108) mmHg ABG HCO3 (21-25) mmol/L ABG O2 Saturation (94-97) % Chloride 112 H (98-107) mmol/L Carbon Dioxide 21 L (22-30) mmol/L BUN 42 H (7-17) mg/dL Creatinine 1.60 H (0.52-1.04) mg/dL Troponin I 0.354 H* (0.000-0.034) ng/mL 07/11/21 Range/Units 06:12 WBC (3.8-10.6) k/uL RBC (3.80-5.40) m/uL Hgb (11.4-16.0) gm/dL Hct (34.0-46.0) % Neutrophils # (Manual) (1.3-7.7) k/uL Lymphocytes # (Manual) (1.0-4.8) k/uL Metamyelocytes # (Man) (0) k/uL Myelocytes # (Manual) (0) k/uL PT 16.0 H (9.0-12.0) sec INR 1.6 H (<1.2) ABG pH (7.35-7.45) ABG pO2 (83-108) mmHg ABG HCO3 (21-25) mmol/L ABG O2 Saturation (94-97) % Chloride (98-107) mmol/L Carbon Dioxide (22-30) mmol/L BUN (7-17) mg/dL Creatinine (0.52-1.04) mg/dL Troponin I (0.000-0.034) ng/mL Microbiology - Last 24 Hours (Table) 07/10/21 18:01 Nasal Screen MRSA/MSSA - Preliminary Nasal Swab 07/10/21 04:23 Gram Stain - Preliminary Sputum Sputum Culture - Preliminary 07/09/21 16:30 Blood Culture - Preliminary Blood No Growth after 24 hours 07/09/21 16:20 Blood Culture - Preliminary Blood No Growth after 24 hours Assessment and Plan Assessment: Acute hypoxemic respiratory failure secondary to left lower lobe pneumonia. Acute hypoxemic respiratory failure secondary to pneumonia and COPD. History of COPD from previous significant tobacco use. History of hypertension. History of hyperlipidemia. Status post pacemaker implantation. Vague history of CHF. Plan: Plan dated 07/10/2021. Currently, the patient's on azithromycin and Zosyn. The patient is also getting any treatments with albuterol sulfate and ipratropium bromide. We will continue to follow make recommendations were appropriate. Prognosis is certainly guarded. The CAT scan, x-rays, and medications are all reviewed. The patient should have outpatient evaluation of her chronic lung disease once she is better and is discharged. Infectious disease should see this patient. Plan dated 07/11/2021. The patient was transferred to the intensive care unit for further monitoring and management. She was transferred sometime after midnight. She remains on BiPAP. Saturations are reasonable. Chest x-ray shows near complete opacification of the left lung. We recommend the right lung to be down, and significant chest physiotherapy to the left lung. Additional recommendations and suggestions are forthcoming. Labs, x-rays, and medications are reviewed. We'll continue to follow. Time with Patient: Greater than 30
[2021-07-11] MEDS ORDERED: SODIUM CHLORIDE 0.9% 2,000 ML IV ONE (09:57)
[2021-07-11] MEDS: HYDROXYCHLOROQUINE SULFATE 200 MG TAB PO SCH (09:59)
[2021-07-11] MEDS: SPIRONOLACTONE 25 MG TAB PO SCH (09:59)
[2021-07-11] MEDS ORDERED: propofoL 100 ML IV ONE (11:58)
[2021-07-11] MEDS ORDERED: CISATRACURIUM 2 MG/ML 5 ML VIAL IV ONE (11:58)
[2021-07-11] MEDS ORDERED: LORazepam 2 MG/ML INJ ONE (12:02)
[2021-07-11] MEDS ORDERED: MORPHINE SULFATE 4 MG/ML SYRINGE ONE ×2 (12:03)
[2021-07-11] MEDS ORDERED: SUCCINYLCHOLINE CHLORIDE VIAL 200 MG/10 ML VIAL IV ONE (12:04)
[2021-07-11] MEDS ORDERED: SODIUM CHLORIDE 0.9% 1,000 ML IV ONE (12:56)
--- NOTE | 2021-07-11 12:59 | PCN ---
PROCEDURE NOTE PROCEDURE: Placement of left internal jugular triple-lumen catheter. PREOPERATIVE DIAGNOSIS: Administration of fluids and pressors. POSTOPERATIVE DIAGNOSIS: Administration of fluids and pressors. OPERATORS: 1. Dr. Mcguire. 2. Dr. Kang. PROCEDURE DESCRIPTION: There was informed consent and universal timeout completed, verifying correct patient, procedure, site, positioning, and implant(s) or special equipment if applicable. The patient was placed in a dependent position appropriate for triple-lumen catheter placement based on the vein to be cannulated. The patient's left neck was prepped and draped in sterile fashion. 1% Lidocaine was used to anesthetize the surrounding skin area. A triple-lumen 9F Cordis catheter was introduced into the left internal jugular vein using Seldinger technique through the posterior approach. The catheter was threaded smoothly over the guide wire and appropriate blood return was obtained. There was good blood return from all three ports. Each lumen of the catheter was evacuated of air and flushed with sterile saline. The catheter was then sutured in place. Perfusion to the extremity distal to the point of catheter insertion was checked and found to be adequate. There was no immediate complication. A chest x-ray was ordered to check placement. MMODL / IJN: [id number] /
[2021-07-11] MEDS ORDERED: NOREPINEPHRIN 4 MG-0.9% NS PMX 4 MG/250 ML ML IV ONE (13:01)
--- NOTE | 2021-07-11 13:06 | PCN ---
PROCEDURE NOTE PROCEDURE: Intubation with mechanical ventilation. PREOPERATIVE DIAGNOSIS: Respiratory failure. POSTOPERATIVE DIAGNOSIS: Respiratory failure. OPERATORS: 1. Dr. Mcguire. 2. Dr. Kang. PROCEDURE DESCRIPTION: There was informed consent and universal timeout. A GlideScope was used to assist in the process of intubation. A #7-1/2 endotracheal tube was noted to go through the vocal cords into the trachea. There were good bilateral breath sounds. There was good color change on the qualitative capnography device. The balloon was inflated. The patient tolerated the procedure well. She was connected to the mechanical ventilator. MMODL / IJN: [id number] /
--- NOTE | 2021-07-11 13:09 | PCN ---
PROCEDURE NOTE PROCEDURE: Bronchoscopy, airway examination, therapeutic lavage, BAL, left lower lobe. PREOPERATIVE DIAGNOSIS: Pneumonia. POSTOPERATIVE DIAGNOSIS: Pneumonia. OPERATORS: 1. Dr. Mcguire. 2. Dr. Kang. PROCEDURE DESCRIPTION: There was informed consent and universal timeout. The bronchoscope was pushed through the bronchoscope adapter connected to the endotracheal tube. At this time, the patient was adequately sedated and paralyzed and on the mechanical breathing machine receiving 100%. The bronchoscope was pushed through the endotracheal tube into the trachea. There were secretions noted in the distal trachea. The right and left mainstem were topicalized with lidocaine. The right upper lobe and its 3 segments, right middle lobe and its 2 segments, and the right lower lobe and its 5 segments had evidence of diffuse airway erythema, hyperemia and bronchitis. There were some secretions. The secretions were suctioned. Next, the bronchoscope was taken over to the left side. The left upper lobe proper and its 2 segments, the lingula and its 2 segments, and the left lower lobe and its 4 segments were all evaluated. There were thick secretions noted throughout. The airways were inflamed and erythematous. There was no dominant mass or tumor. Bronchoalveolar lavage was done in the left lower lobe. The patient tolerated the procedure well. There was no immediate complication. The fluid will be sent for analysis. MMODL / IJN: [id number] /
--- NOTE | 2021-07-11 13:09 | PCN ---
PROCEDURE NOTE PROCEDURE: Placement of right radial arterial line. PREOPERATIVE DIAGNOSIS: Frequent blood draws and blood gas monitoring. POSTOPERATIVE DIAGNOSIS: Frequent blood draws and blood gas monitoring. OPERATORS: 1. Dr. Mcguire. 2. Dr. Kang. PROCEDURE DESCRIPTION: There was informed consent and universal timeout was completed verifying correct patient, procedure, site, positioning, and implant(s) or special equipment if applicable. Richard's test was performed to ensure adequate perfusion. The patient's right wrist was prepped and draped in sterile fashion. 1% Lidocaine was used to anesthetize the area. An 18G Arrow arterial line was introduced into the right radial artery. The catheter was threaded over the guidewire and the needle was removed with appropriate pulsatile blood return. There was good blood return and waveform. Blood loss was minimal. The catheter was then sutured in place to the skin and a sterile dressing applied by the nurse. Perfusion to the extremity distal to the point of catheter insertion was checked and found to be adequate. The patient tolerated the procedure well and there were no immediate complications. MMODL / IJN: [id number] /
[2021-07-11 13:10] LABS: ABG Base Excess -9.5 mmol/L; ABG HCO3 17 mmol/L (21-25); ABG Oxygen Saturation 97.7 % (94-97); ABG PCO2 34 mmHg (35-45); ABG PO2 111 mmHg (83-108); ABG TCO2 18 mmol/L (19-24)
[2021-07-11 13:10] LABS: Glucose,Whole Blood 83 mg/dL (75-99)
--- NOTE | 2021-07-11 13:15 | XR ---
EXAMINATION TYPE: XR chest 1V portable DATE OF EXAM: 07/11/2021 COMPARISON: Chest x-ray dated 07/11/2021 at earlier time HISTORY: Intubation and central line placement TECHNIQUE: Single frontal view of the chest is obtained. FINDINGS: There has been interval placement of an endotracheal tube which is approximately 9 mm from the nicho. NG tube is in place, distal tip not included on exam but coursing toward the stomach. Pa tient is post median sternotomy and cardiac valve replacement. Left-sided jugular central venous cath eter is noted, distal tip is coursing to the level the cavoatrial junction in appropriate position. T here is no evident pneumothorax. Patient is rotated. There is improvement in aeration in the left rose g as compared to prior, left hemidiaphragm remains obscured. Cardiac mediastinal silhouette is likely stable, patient is rotated. Difficult to exclude effusion. IMPRESSION: Endotracheal tube is thought to be less than 1 cm from the level the nicho. No evident complication status post central venous catheter placement. Some improvement in aeration. Report rela yed to ICU staff at the time of interpretation.
--- NOTE | 2021-07-11 13:16 | PCN ---
PROCEDURE NOTE PROCEDURE: Bronchoscopy, airway examination, therapeutic lavage and BAL. PREOPERATIVE DIAGNOSIS: Pneumonia. POSTOPERATIVE DIAGNOSIS: Pneumonia. PROCEDURE DESCRIPTION: The BAL took place in the left lung. The patient was already on the ventilator, getting 100% oxygen. She was currently sedated and paralyzed during the procedure. The bronchoscope was pushed through the bronchoscope adapter connected to the endotracheal (Dictation ends abruptly.) CHRIS / SALTYN: [id number] /
[2021-07-11] MEDS: NOREPINEPHRINE 32 MG in SODIUM CHLORIDE 0.9% 218 ML IV SCH (13:31)
--- NOTE | 2021-07-11 14:59 | P.PN ---
Subjective Progress Note Date: 07/11/21 This is Favian beebe NP, I'm dictating on behalf of Dr. Munguia's H&P and A&P. Patient was interviewed and examined. Patient is a 71-year-old female that initially presented to the hospital with acute hypoxic respiratory failure and congestive heart failure. During the interview, the patient was unable to respond to questions secondary to BiPAP administration secondary to acute respiratory distress. Nursing reported the patient was hypotensive with a blood pressure in the 70s/40s, and they were gi ving her 2 L of fluid. We were initially going to continue IV Lasix secondary to her inability to take by mouth meds, however with a significantly decreased blood pressure, we elected to hold off as it appears the patient's issue may be secondary to a respiratory etiology. GENERAL: Sick appearing, cachectic, in mild respiratory distress. NECK: Supple without JVD or thyromegaly. LUNGS: Coarse rhonchi bilaterally. Respiration equal and unlabored. No wheezes, rales. HEART: Regular rate and rhythm without murmurs, rubs or gallops. S1 and S2 heard. EXTREMITIES: Normal range of motion, no edema. No clubbing or cyanosis. Peripheral pulses intact and strong. VITALS: Temp 98.3, pulse 73, respirations 29, blood pressure 100/43, O2 saturation 97% on 70% FiO2 via BiPAP TELEMETRY: Normal sinus rhythm LABS: White count 12.5, hemoglobin 10.1, platelets 248, PT 16, INR 1.6, sodium 141, potassium 4.0, B1 42, creatinine 1.6, calcium 8.5, magnesium 1.6, troponin 0.354 IMPRESSION/PLAN: 1. Congestive heart failure-hold IV Lasix at this time secondary to significantly decreased blood pressures. Patient's respiratory distress is likely secondary to pulmonary etiology. Echocardiogram demonstrates LVEF of 60- 65%, with mildly increased septal wall thickness. Mild right ventricular dilatation. Severely increased left atrial diameter. Mild aortic stenosis. Mild mitral valve regurgitation. Mild tricuspid valve regurgitation. 2. Elevated troponin-secondary to demand ischemia. Once respiratory etiology is resolved, expect troponin to decrease. 3. Acute hypoxic respiratory failure-please follow pulmonology recommendations. Further recommendations pending patient's clinical course. Objective - Vital Signs Vital signs: Vital Signs Temp 98.3 F 07/11/21 12:00 Pulse 73 04/23/22 13:00 Resp 24 07/11/21 13:00 BP 82/38 07/11/21 13:00 Pulse Ox 95 07/11/21 13:00 Intake & Output 07/10/21 07/11/21 07/11/21 18:59 06:59 18:59 Intake Total 200 2415.627 Output Total 1450 1150 440 Balance -1450 -950 1975.627 Intake: IV 100 2410 Piperacillin-Tazobactam 3 100 100 .375 gm In Sodium Chloride 0.9% 100 ml @ 25 mls/hr IVPB Q8HR [facility] THE [facility] Rx# :[id number] Sodium Chloride 0.9 % @ 60 20mls/hr Sodium Chloride 0.9% 2, 2250 000 ml @ 999 mls/hr IV . Q2H1M [facility] Rx#:[id number] Intake, IV Titration 5.627 Amount Norepinephrine 32 mg In 5.627 Sodium Chloride 0.9% 218 ml @ 0.05 MCG/KG/MIN 1. 425 mls/hr IV .Q24H COUNT INCLUDES THE [facility] Rx#:[id number] Oral 100 Output: Urine 1450 1150 440 Other: Voiding Method Indwelling Catheter Indwelling Catheter ABP, PAP, CO, CI - Last Documented Arterial Blood Pressure 62/33 - Labs CBC & Chem 7: 07/11/21 00:38 07/11/21 00:38 Labs: Abnormal Lab Results - Last 24 Hours (Table) 07/11/21 07/11/21 07/11/21 Range/Units 00:34 00:38 00:38 WBC 12.5 H (3.8-10.6) k/uL RBC 3.56 L (3.80-5.40) m/uL Hgb 10.1 L (11.4-16.0) gm/dL Hct 32.1 L (34.0-46.0) % Neutrophils # (Manual) 10.20 H (1.3-7.7) k/uL PT (9.0-12.0) sec INR (<1.2) ABG pH 7.27 L (7.35-7.45) ABG pCO2 (35-45) mmHg ABG pO2 61 L (83-108) mmHg ABG HCO3 20 L (21-25) mmol/L ABG Total CO2 (19-24) mmol/L ABG O2 Saturation 89.7 L (94-97) % Chloride (98-107) mmol/L Carbon Dioxide (22-30) mmol/L BUN (7-17) mg/dL Creatinine (0.52-1.04) mg/dL Troponin I 0.354 H* (0.000-0.034) ng/mL 07/11/21 07/11/21 07/11/21 Range/Units 00:38 06:12 13:04 WBC (3.8-10.6) k/uL RBC (3.80-5.40) m/uL Hgb (11.4-16.0) gm/dL Hct (34.0-46.0) % Neutrophils # (Manual) (1.3-7.7) k/uL PT 16.0 H (9.0-12.0) sec INR 1.6 H (<1.2) ABG pH 7.30 L (7.35-7.45) ABG pCO2 34 L (35-45) mmHg ABG pO2 111 H (83-108) mmHg ABG HCO3 17 L (21-25) mmol/L ABG Total CO2 18 L (19-24) mmol/L ABG O2 Saturation 97.7 H (94-97) % Chloride 112 H (98-107) mmol/L Carbon Dioxide 21 L (22-30) mmol/L BUN 42 H (7-17) mg/dL Creatinine 1.60 H (0.52-1.04) mg/dL Troponin I (0.000-0.034) ng/mL Microbiology - Last 24 Hours (Table) 07/10/21 18:01 Nasal Screen MRSA/MSSA - Preliminary Nasal Swab 07/10/21 04:23 Gram Stain - Preliminary Sputum Sputum Culture - Preliminary 07/09/21 16:30 Blood Culture - Preliminary Blood No Growth after 24 hours 07/09/21 16:20 Blood Culture - Preliminary Blood No Growth after 24 hours
[2021-07-11] MEDS: AZITHROMYCIN 500 MG in SODIUM CHLORIDE 0.9% 250 ML IVPB SCH (16:54)
[2021-07-11] MEDS ORDERED: WARFARIN 2 MG TAB PO SCH (18:00)
[2021-07-11 18:26] LABS: Glucose,Whole Blood 69 mg/dL (75-99)
[2021-07-11] MEDS ORDERED: DEXTROSE 50% SYRINGE 50 ML IVP ONE (18:45)
[2021-07-11 19:08] LABS: Glucose,Whole Blood 187 mg/dL (75-99)
[2021-07-11] MEDS ORDERED: LACTATED RINGERS 1,000 ML IV SCH (19:15)
[2021-07-11] MEDS: LACTATED RINGERS 1,000 ML IV SCH ×2 (19:37→19:44)
[2021-07-11] MEDS: CHLORHEXIDINE GLUCONATE 15 ML CUP MUCOUS MEM SCH (19:46)
--- NOTE | 2021-07-11 19:57 | PN ---
PROGRESS NOTE DATE OF SERVICE: 07/11/2021 This 71-year-old woman who was admitted with features of left lower lobe pneumonia as well as COPD, acute exacerbation, and acute respiratory failure had significant difficulties breathing. The patient was tiring out and the patient was on BiPAP. The patient is intubated today. The patient is on broad-spectrum IV antibiotics. Patient is hypotensive as well. Cardiology is also seeing the patient for elevated troponin, possibly secondary to demand ischemia as well as CHF. The chest x-ray was reviewed personally by me and showed significant evidence of bilateral pneumonia, left more than the right. Currently patient is sedated and intubated on mechanical ventilation, pressor support. The patient is on 400 tidal volume, 90% FIO2 and 10 of PEE. Past medical history reviewed. Review of systems could not be taken; the patient is sedated. CURRENT MEDICATIONS: Reviewed. They include Peridex, DuoNeb q.i.d. Doses and other medications are reviewed. PHYSICAL EXAMINATION: Pulse is 105, blood pressure ntd respiration 24, temperature 99.3. HEENT: Conjunctivae normal. Oral mucosa moist. CARDIOVASCULAR: S1, S2 muffled. RESPIRATION: Breath sounds diminished at the bases. Bilateral scattered rhonchi and crackles. ABDOMEN: Soft. LEGS: No edema. No swelling. NERVOUS SYSTEM: No focal deficit. LABS: Reviewed. Chest x-ray reviewed personally, as mentioned. ASSESSMENT: 1. Acute bilateral pneumonia, left more than the right, with sepsis with acute hypoxic respiratory, on mechanical ventilation. 2. Increased white count. 3. Acute renal failure. 4. Troponin 0.354; possible demand ischemia. 5. Chronic obstructive pulmonary disease, acute exacerbation. 6. History of pacemaker. 7. History of AICD. RECOMMENDATIONS AND DISCUSSION: In this 71-year-old woman who presented with multiple complex medical issues, we will monitor the patient closely, continue the current medications, continue symptomatic treatment. The patient is on broad-spectrum IV antibiotics. Will obtain cultures. Continue with the pressor support. Continue with the mechanical ventilation. Patient is on IV Zosyn at this time. Continue the rest of the medications. Prognosis is guarded because of multiple complex medical issues. Further recommendations to follow. See orders for further details. Discussed with staff. MMODL / IJN: [id number] / ELIZABETH
--- NOTE | 2021-07-11 21:10 | P.PN ---
Subjective Progress Note Date: 07/11/21 Principal diagnosis: Pneumonia Patient is a 71-year-old female with a past medical history significant for COPD and recent admission to [facility] for pneumonia pr esented to hospital with increasing shortness of breath and cough with a CT suspicious for left lower lobe pneumonia. On today's evaluation that is 07/11/2021, the patient is afebrile, the patient did went into respiratory failure, transferred to the ICU and has been intubated patient is status post bronchoscopy and lavage those cultures are pending did have significant amount of purulent secretion through the ET at the time of intubation per the nursing staff no vomiting or diarrhea has been reported Objective - Vital Signs Vital signs: Vital Signs Temp 98.3 F 07/11/21 12:00 Pulse 73 07/11/21 13:00 Resp 24 07/11/21 13:00 BP 82/38 07/11/21 13:00 Pulse Ox 95 07/11/21 13:00 Intake & Output 07/10/21 07/11/21 07/11/21 18:59 06:59 18:59 Intake Total 200 2415.627 Output Total 1450 1150 440 Balance -1450 -950 1975.627 Intake: IV 100 2410 Piperacillin-Tazobactam 3 100 100 .375 gm In Sodium Chloride 0.9% 100 ml @ 25 mls/hr IVPB Q8HR [facility] Rx# :[id number] Sodium Chloride 0.9 % @ 60 20mls/hr Sodium Chloride 0.9% 2, 2250 000 ml @ 999 mls/hr IV . Q2H1M [facility] Rx#:[id number] Intake, IV Titration 5.627 Amount Norepinephrine 32 mg In 5.627 Sodium Chloride 0.9% 218 ml @ 0.05 MCG/KG/MIN 1. 425 mls/hr IV .Q24H [facility] Rx#:[id number] Oral 100 Output: Urine 1450 1150 440 Other: Voiding Method Indwelling Catheter Indwelling Catheter ABP, PAP, CO, CI - Last Documented Arterial Blood Pressure 62/33 - Exam GENERAL DESCRIPTION: An elderly female intubated on vent RESPIRATORY SYSTEM: Unlabored breathing , decreased breath sounds at bases HEART: S1 S2 regular rate and rhythm , ABDOMEN: Soft , no tenderness EXTREMITIES: No edema feet - Labs CBC & Chem 7: 07/11/21 00:38 07/11/21 00:38 Labs: Abnormal Lab Results - Last 24 Hours (Table) 07/11/21 07/11/21 07/11/21 Range/Units 00:34 00:38 00:38 WBC 12.5 H (3.8-10.6) k/uL RBC 3.56 L (3.80-5.40) m/uL Hgb 10.1 L (11.4-16.0) gm/dL Hct 32.1 L (34.0-46.0) % Neutrophils # (Manual) 10.20 H (1.3-7.7) k/uL PT (9.0-12.0) sec INR (<1.2) ABG pH 7.27 L (7.35-7.45) ABG pCO2 (35-45) mmHg ABG pO2 61 L (83-108) mmHg ABG HCO3 20 L (21-25) mmol/L ABG Total CO2 (19-24) mmol/L ABG O2 Saturation 89.7 L (94-97) % Chloride (98-107) mmol/L Carbon Dioxide (22-30) mmol/L BUN (7-17) mg/dL Creatinine (0.52-1.04) mg/dL Troponin I 0.354 H* (0.000-0.034) ng/mL 07/11/21 07/11/21 07/11/21 Range/Units 00:38 06:12 13:04 WBC (3.8-10.6) k/uL RBC (3.80-5.40) m/uL Hgb (11.4-16.0) gm/dL Hct (34.0-46.0) % Neutrophils # (Manual) (1.3-7.7) k/uL PT 16.0 H (9.0-12.0) sec INR 1.6 H (<1.2) ABG pH 7.30 L (7.35-7.45) ABG pCO2 34 L (35-45) mmHg ABG pO2 111 H (83-108) mmHg ABG HCO3 17 L (21-25) mmol/L ABG Total CO2 18 L (19-24) mmol/L ABG O2 Saturation 97.7 H (94-97) % Chloride 112 H (98-107) mmol/L Carbon Dioxide 21 L (22-30) mmol/L BUN 42 H (7-17) mg/dL Creatinine 1.60 H (0.52-1.04) mg/dL Troponin I (0.000-0.034) ng/mL Microbiology - Last 24 Hours (Table) 07/10/21 18:01 Nasal Screen MRSA/MSSA - Preliminary Nasal Swab 07/10/21 04:23 Gram Stain - Preliminary Sputum Sputum Culture - Preliminary 07/09/21 16:30 Blood Culture - Preliminary Blood No Growth after 24 hours 07/09/21 16:20 Blood Culture - Preliminary Blood No Growth after 24 hours Assessment and Plan (1) Pneumonia Current Visit: Yes Status: Acute Code(s): J18.9 - PNEUMONIA, UNSPECIFIED ORGANISM SNOMED Code(s): 000818152 Plan: 1patient presented to hospital with acute respiratory failure with in this patient did have hypoxemia increasing shortness of breath and cough with evidence of left lower lobe pneumonia on the CT and recently admitted and treated at [facility] having intercourse for the gram-negative pathogen. 2patient did have worsening of respiratory status requiring intubation patient is status post bronchoscopy and lavage those cultures are pending 3patient to continue with Zosyn 3.375 g every 8 hours while waiting for the culture finalized, family the bedside questions Answered Time with Patient: Less than 30
[2021-07-11 23:56] LABS: Glucose,Whole Blood 102 mg/dL (75-99)
[2021-07-12] MEDS: NOREPINEPHRINE 32 MG in SODIUM CHLORIDE 0.9% 218 ML IV SCH ×3 (00:02→18:04)
[2021-07-12] MEDS: ACETAMINOPHEN TAB 325 MG TAB PO PRN (00:02)
[2021-07-12] MEDS: IPRATROPIUM-ALBUTEROL 3 ML NEB INHALATION SCH ×7 (00:45→23:10)
[2021-07-12 04:57] LABS: INR 2.9 (<1.2); Prothrombin Time 28.8 sec (9.0-12.0)
[2021-07-12 05:10] LABS: Albumin 2.7 g/dL (3.5-5.0); Calcium 8.3 mg/dL (8.4-10.2); Potassium 4.3 mmol/L (3.5-5.1); Total Bilirubin 1.7 mg/dL (0.2-1.3); Total Protein 5.6 g/dL (6.3-8.2)
[2021-07-12 05:21] LABS: HCT 32.6 % (34.0-46.0); HGB 10.4 gm/dL (11.4-16.0); Hypochromasia Moderate; MCV 90.5 fL (80.0-100.0); Mean Platelet Volume 10.7; Platelet Count 340 k/uL (150-450); RDW 14.6 % (11.5-15.5); WBC 21.8 k/uL (3.8-10.6)
[2021-07-12 05:22] LABS: ABG Base Excess -16.7 mmol/L; ABG HCO3 12 mmol/L (21-25); ABG PCO2 34 mmHg (35-45); ABG PO2 223 mmHg (83-108); ABG TCO2 13 mmol/L (19-24); Allen Test Performed? Yes
[2021-07-12 05:26] LABS: ABG PH 7.16 (7.35-7.45)
[2021-07-12] MEDS: DEXTROSE 5% IN WATER 1,000 ML with SODIUM BICARB (1 MEQ/ML) 100 ML IV SCH ×2 (05:53→16:54)
[2021-07-12 05:54] LABS: Band Neutrophils % 10 %; Eosinophils # (M) 0.22 k/uL (0-0.7); Lymphocytes # (M) 1.09 k/uL (1.0-4.8); Metamyelocytes # (M) 0.44 k/uL (0); Metamyelocytes % 2 %; Monocytes # (M) 1.09 k/uL (0-1.0); Myelocytes # (M) 0.22 k/uL (0); Myelocytes % 1 %; Neutrophils % (M) 78 %; Nucleated Red Blood Cells 0 /100 WBC (0-0); Polychromasia Present; Total Cells Counted 200
--- NOTE | 2021-07-12 07:04 | XR ---
EXAMINATION TYPE: XR chest 1V portable DATE OF EXAM: 07/12/2021 5:49 AM COMPARISON: Chest radiographs from 07/11/2021 TECHNIQUE: XR chest 1V portable Frontal view of the chest. CLINICAL INDICATION:Female, 71 years old with history of Tube placement; FINDINGS: Lungs/Pleura: Similar multifocal airspace opacities most pronounced in the left lung given difference s in patient positioning and technique. No evidence of pneumothorax or large pleural effusion. Pulmonary vascularity: Unremarkable. Heart/mediastinum: Cardiomediastinal silhouette is unremarkable. Heart valvular changes. Single-lead cardiac conduction device overlying the left hemithorax with lead projecting over the right ventricl e. Musculoskeletal: No acute osseous pathology. Lines/Tubes: Endotracheal tube with distal tip at the level of the aortic arch Nasogastric tube with its distal tip and side-port projecting under the diaphragm. Left internal jugular central venous catheter with distal tip at the cavoatrial junction. IMPRESSION: 1. Similar multifocal airspace opacities. 2. Stable support lines and tubes.
[2021-07-12] MEDS: PIPERACILLIN-TAZOBACTAM 3.375 GM in SODIUM CHLORIDE 0.9% 100 ML IVPB SCH ×2 (09:19→15:44)
[2021-07-12] MEDS: minoxidiL 2.5 MG TAB PO SCH (09:23)
[2021-07-12] MEDS: LOSARTAN 50 MG TAB PO SCH (09:23)
[2021-07-12] MEDS: SPIRONOLACTONE 25 MG TAB PO SCH (09:23)
[2021-07-12] MEDS: SODIUM CHLORIDE 0.9% 150 ML with VASOPRESSIN 60 UNIT IV SCH ×2 (09:24)
[2021-07-12] MEDS: HYDROXYCHLOROQUINE SULFATE 200 MG TAB PO SCH (09:45)
[2021-07-12] MEDS: CHLORHEXIDINE GLUCONATE 15 ML CUP MUCOUS MEM SCH ×2 (09:45→19:50)
--- NOTE | 2021-07-12 11:48 | P.PN ---
Subjective Progress Note Date: 07/12/21 This is Favian Tyler NP, I'm dictating on behalf of Dr. Munguia's H&P and A&P. Patient was interviewed and examined. Patient is a 71-year-old female who initially presented with acute hypoxic respiratory failure, and chronic respiratory insufficiency. Patient is now intubated as well as sedated. Patient continues on norepinephrine and vasopressin and maintained cardiovascular status. Secondary to this, patient has been removed from all of her blood pressure medications. When the patient is extubated and alert, recommendations would be to place patient back on her blood pressure medications. GENERAL: Intubated, sedated. NECK: Supple without JVD or thyromegaly. LUNGS: Coarse rhonchi bilaterally. Respiration equal and unlabored. No wheezes, rales. HEART: Regular rate and rhythm without murmurs, rubs or gallops. S1 and S2 heard. EXTREMITIES: Normal range of motion, no edema. No clubbing or cyanosis. Peripheral pulses intact and strong. VITALS: Temp 100.4, pulse 89, respirations 24, but pressure 97/49, O2 saturation 97% on mechanical ventilation TELEMETRY: Normal sinus rhythm LABS: White count 21.8, hemoglobin 10.4, platelets 340, sodium 143, potassium 4.3, V1 46, creatinine 2.68, calcium 8.3, IMPRESSION: Congestive heart failure Elevated troponin Acute hypoxic respiratory failure PLAN: Continue to hold Lasix and blood pressure medications. Once patient is extubated, recommend resuming home blood pressure medications. Expect troponin to decrease as respiratory status improves. Continue to follow pulmonology recommendations. We will sign off on this patient at this time. Please do not hesitate to reconsult us if further recommendations are needed. Objective - Vital Signs Vital signs: Vital Signs Temp 100.4 F H 07/12/21 08:00 Pulse 91 07/12/21 10:00 Resp 24 07/12/21 10:00 BP 100/36 07/12/21 10:00 Pulse Ox 97 07/12/21 10:00 Intake & Output 07/11/21 07/12/21 07/12/21 18:59 06:59 18:59 Intake Total 2961.546 2402.366 749.245 Output Total 600 70 30 Balance 2361.546 2332.366 719.245 Weight 73 kg Intake: IV 2860 1900 640 Azithromycin 500 mg In 250 Sodium Chloride 0.9% 250 ml @ 250 mls/hr IVPB DAILY [facility] Rx#:[id number] Dextrose 5% in Water 1, 500 000 ml @ 100 mls/hr IV . Q11H [facility] with Sodium Bicarb (1 Meq/ml) 100 ml Rx#:[id number] Lactated Ringers 1,000 ml 900 @ 75 mls/hr IV .[id number] [facility] Rx#:[id number] Lactated Ringers 1,000 ml 1000 @ 999 mls/hr IV .Q1H1M [facility] Rx#:[id number] Piperacillin-Tazobactam 3 200 100 .375 gm In Sodium Chloride 0.9% 100 ml @ 25 mls/hr IVPB Q8HR [facility] Rx# :[id number] Sodium Chloride 0.9 % @ 160 40 20mls/hr Sodium Chloride 0.9% 2, 2250 000 ml @ 999 mls/hr IV . Q2H1M [facility] Rx#:[id number] Intake, IV Titration 101.546 342.366 109.245 Amount Norepinephrine 32 mg In 73.221 271.256 86.755 Sodium Chloride 0.9% 218 ml @ 0.05 MCG/KG/MIN 1. 425 mls/hr IV .Q24H [facility] Rx#:[id number] propofoL 1,000 mg In 28.325 71.110 22.490 Empty Bag 1 bag @ 5 MCG/ KG/MIN 1.823 mls/hr IV . Q24H [facility] Rx#:[id number] Tube Feeding 100 Other 60 Output: Urine 600 70 30 Other: Voiding Method Indwelling Catheter Indwelling Catheter ABP, PAP, CO, CI - Last Documented Arterial Blood Pressure 106/49 - Labs CBC & Chem 7: 07/12/21 04:21 07/12/21 04:21 Labs: Abnormal Lab Results - Last 24 Hours (Table) 07/11/21 07/11/21 07/11/21 Range/Units 13:04 18:24 19:07 WBC (3.8-10.6) k/uL RBC (3.80-5.40) m/uL Hgb (11.4-16.0) gm/dL Hct (34.0-46.0) % Neutrophils # (Manual) (1.3-7.7) k/uL Monocytes # (Manual) (0-1.0) k/uL Metamyelocytes # (Man) (0) k/uL Myelocytes # (Manual) (0) k/uL PT (9.0-12.0) sec INR (<1.2) ABG pH 7.30 L (7.35-7.45) ABG pCO2 34 L (35-45) mmHg ABG pO2 111 H (83-108) mmHg ABG HCO3 17 L (21-25) mmol/L ABG Total CO2 18 L (19-24) mmol/L ABG O2 Saturation 97.7 H (94-97) % Chloride (98-107) mmol/L Carbon Dioxide (22-30) mmol/L BUN (7-17) mg/dL Creatinine (0.52-1.04) mg/dL Glucose (74-99) mg/dL POC Glucose (mg/dL) 69 L 187 H (75-99) mg/dL Calcium (8.4-10.2) mg/dL Total Bilirubin (0.2-1.3) mg/dL AST (14-36) U/L ALT (4-34) U/L Total Protein (6.3-8.2) g/dL Albumin (3.5-5.0) g/dL 07/11/21 07/12/21 07/12/21 Range/Units 23:54 04:21 04:21 WBC 21.8 H (3.8-10.6) k/uL RBC 3.60 L (3.80-5.40) m/uL Hgb 10.4 L (11.4-16.0) gm/dL Hct 32.6 L (34.0-46.0) % Neutrophils # (Manual) 19.10 H (1.3-7.7) k/uL Monocytes # (Manual) 1.09 H (0-1.0) k/uL Metamyelocytes # (Man) 0.44 H (0) k/uL Myelocytes # (Manual) 0.22 H (0) k/uL PT 28.8 H (9.0-12.0) sec INR 2.9 H (<1.2) ABG pH (7.35-7.45) ABG pCO2 (35-45) mmHg ABG pO2 (83-108) mmHg ABG HCO3 (21-25) mmol/L ABG Total CO2 (19-24) mmol/L ABG O2 Saturation (94-97) % Chloride (98-107) mmol/L Carbon Dioxide (22-30) mmol/L BUN (7-17) mg/dL Creatinine (0.52-1.04) mg/dL Glucose (74-99) mg/dL POC Glucose (mg/dL) 102 H (75-99) mg/dL Calcium (8.4-10.2) mg/dL Total Bilirubin (0.2-1.3) mg/dL AST (14-36) U/L ALT (4-34) U/L Total Protein (6.3-8.2) g/dL Albumin (3.5-5.0) g/dL 07/12/21 07/12/21 Range/Units 04:21 05:16 WBC (3.8-10.6) k/uL RBC (3.80-5.40) m/uL Hgb (11.4-16.0) gm/dL Hct (34.0-46.0) % Neutrophils # (Manual) (1.3-7.7) k/uL Monocytes # (Manual) (0-1.0) k/uL Metamyelocytes # (Man) (0) k/uL Myelocytes # (Manual) (0) k/uL PT (9.0-12.0) sec INR (<1.2) ABG pH 7.16 L* (7.35-7.45) ABG pCO2 34 L (35-45) mmHg ABG pO2 223 H (83-108) mmHg ABG HCO3 12 L (21-25) mmol/L ABG Total CO2 13 L (19-24) mmol/L ABG O2 Saturation 99.0 H (94-97) % Chloride 117 H (98-107) mmol/L Carbon Dioxide 13 L (22-30) mmol/L BUN 46 H (7-17) mg/dL Creatinine 2.68 H (0.52-1.04) mg/dL Glucose 72 L (74-99) mg/dL POC Glucose (mg/dL) (75-99) mg/dL Calcium 8.3 L (8.4-10.2) mg/dL Total Bilirubin 1.7 H (0.2-1.3) mg/dL AST 4763 H (14-36) U/L ALT 1213 H (4-34) U/L Total Protein 5.6 L (6.3-8.2) g/dL Albumin 2.7 L (3.5-5.0) g/dL Microbiology - Last 24 Hours (Table) 07/10/21 18:01 Nasal Screen MRSA/MSSA - Final Nasal Swab 07/11/21 12:45 Gram Stain - Preliminary Bronchial Washings - Left Bronchial Washings Culture - Preliminary 07/09/21 16:20 Blood Culture - Preliminary Blood No Growth after 48 hours 07/09/21 16:30 Blood Culture - Preliminary Blood No Growth after 48 hours 07/11/21 12:45 Fungal Culture - Preliminary Bronchial Washings - Left 07/11/21 12:45 Acid Fast Bacilli Culture - Preliminary Bronchial Washings - Left 07/10/21 04:23 Gram Stain - Preliminary Sputum Sputum Culture - Preliminary Heidi albicans
[2021-07-12 11:49] LABS: Glucose,Whole Blood 107 mg/dL (75-99)
--- NOTE | 2021-07-12 11:50 | P.PN ---
Subjective Progress Note Date: 07/12/21 Principal diagnosis: Shortness of breath. Pulmonary consult dated 07/10/2021. 69-year-old female, poor historian, who apparently was sent to the emergency department, from [facility] for pneumonia. The patient was recently also at [facility], for a pacemaker procedure. The patient complains of increasing shortness of breath, cough, congestion, and low saturations. She typically uses oxygen at 2 L/m, as needed. She is a heavy smoker in the past. She was admitted with a left lower lobe. She's currently on 6 L nasal cannula. She is not receiving any IV fluids. White count 3.6, hemoglobin 9.9, hematocrit 31.4, and platelet count 199,000. Sodium 141, potassium 4.3, chlorides 108, CO2 20, anion gap 13, BUN 35, and creatinine 1.93. Troponins were 0.[address] showed significant consolidation in the left lung base. Other findings in the other lung contreras were noted. Progress note dated 07/11/2021. 71-year-old female seen yesterday in consultation. She apparently was sent into the emergency department from [facility] for pneumonia. The patient came in complaining of shortness of breath, cough, chest congestion, and low saturations. Last night, right around midnight or so, her respiratory status worsened, and she was transferred to the intensive care unit, and placed on BiPAP. Currently, her BiPAP settings are 12/5 and 70%. She's not receiving any IV fluids. The patient is on Zosyn and azithromycin. Chest x-ray shows significant opacification of the left lung. I recommend significant chest physiotherapy. White count 12.5, hemoglobin 10.1, hematocrit 32.1, and platelet count 248,000. PT was 16 with an INR 1.6. Blood gases show pO2 of 61, pCO2 43, and pH is 7.27. This was apparently on 35% oxygen. Sodium 141, potassium 4, chlorides 112, CO2 21, BUN 42, and creatinine 1.60. Troponin 0.354. Chest x- ray shows extensive consolidation and volume loss in the left hemithorax. Progress note dated 07/12/2021. 71-year-old female again seen in room 254. The patient was admitted with a diagnosis of left-sided pneumonia. The patient developed acute respiratory failure, required transfer to the intensive care unit, and yesterday, was intubated and mechanically ventilated. The patient also had an arterial line placed, a central line placed, and did undergo bronchoscopy. She remains on mechanical ventilator, on volume assist control, rate 24, tidal volume 400, FiO2 60%, and PEEP of 10. Blood gases show a PaO2 of 223, pCO2 of 34, and a pH is 7.16. His blood gases were done on 80%. At that point, I started the patient on a sodium bicarbonate drip, with 2 ampules of sodium bicarbonate and D5W at 100 mL an hour. The patient remains on propofol at 15 mcg/kg/m and norepinephrine at 61 mcg/m. In addition, the patient is getting vital AF at 10 mL an hour. We have asked nephrology to see her. I've also asked for a cortisol level, and for her to be started on vasopressin. She is currently on Zosyn. White count 21.8, hemoglobin 10.4, hematocrit 32.6, platelet count 340,000. PTT is 28.8 with an INR of 2.9. Sodium 143, potassium 4.3, chlorides 117, CO2 13, anion gap 13, BUN 46, and creatinine 2.68. AST is 4763. ALT is 1213. Cortisol level was 55. Chest x-ray shows left greater than right airspace disease, although the findings in the left chest, are improved post intubation. Objective - Vital Signs Vital signs: Vital Signs Temp 100.4 F H 07/12/21 08:00 Pulse 91 07/12/21 10:00 Resp 24 07/12/21 10:00 BP 100/36 07/12/21 10:00 Pulse Ox 97 07/12/21 10:00 Intake & Output 07/11/21 07/12/21 07/12/21 18:59 06:59 18:59 Intake Total 2961.546 2402.366 749.245 Output Total 600 70 30 Balance 2361.546 2332.366 719.245 Weight 73 kg Intake: IV 2860 1900 640 Azithromycin 500 mg In 250 Sodium Chloride 0.9% 250 ml @ 250 mls/hr IVPB DAILY [facility] Rx#:[id number] Dextrose 5% in Water 1, 500 000 ml @ 100 mls/hr IV . Q11H [facility] with Sodium Bicarb (1 Meq/ml) 100 ml Rx#:[id number] Lactated Ringers 1,000 ml 900 @ 75 mls/hr IV .[id number] [facility] Rx#:[id number] Lactated Ringers 1,000 ml 1000 @ 999 mls/hr IV .Q1H1M [facility] Rx#:[id number] Piperacillin-Tazobactam 3 200 100 .375 gm In Sodium Chloride 0.9% 100 ml @ 25 mls/hr IVPB Q8HR [facility] Rx# :[id number] Sodium Chloride 0.9 % @ 160 40 20mls/hr Sodium Chloride 0.9% 2, 2250 000 ml @ 999 mls/hr IV . Q2H1M [facility] Rx#:[id number] Intake, IV Titration 101.546 342.366 109.245 Amount Norepinephrine 32 mg In 73.221 271.256 86.755 Sodium Chloride 0.9% 218 ml @ 0.05 MCG/KG/MIN 1. 425 mls/hr IV .Q24H [facility] Rx#:[id number] propofoL 1,000 mg In 28.325 71.110 22.490 Empty Bag 1 bag @ 5 MCG/ KG/MIN 1.823 mls/hr IV . Q24H [facility] Rx#:[id number] Tube Feeding 100 Other 60 Output: Urine 600 70 30 Other: Voiding Method Indwelling Catheter Indwelling Catheter ABP, PAP, CO, CI - Last Documented Arterial Blood Pressure 106/49 - Exam Currently intubated and mechanically ventilated. There is an orally placed endotracheal tube and NG tube. HEENT examination is grossly unremarkable. Neck supple. Full range of motion. No adenopathy thyromegaly or neck vein distention. Cardiovascular examination reveals regular rhythm rate. S1-S2 normal. No S3 or S4. No discernible murmur noted. Heart sounds are very distant. Heart rate 91 bpm. Lungs reveal coarse bilateral rhonchi. No wheezes. No crackles. Abnormal lung sounds are greatler in the left chest. Abdomen soft bowel sounds are heard. No masses or tenderness. Extremities are intact. No cyanosis clubbing or edema. Skin is without rash or lesion. Neurologic examination is brief but nonfocal. - Labs CBC & Chem 7: 07/12/21 04:21 07/12/21 04:21 Labs: Abnormal Lab Results - Last 24 Hours (Table) 07/11/21 07/11/21 07/11/21 Range/Units 13:04 18:24 19:07 WBC (3.8-10.6) k/uL RBC (3.80-5.40) m/uL Hgb (11.4-16.0) gm/dL Hct (34.0-46.0) % Neutrophils # (Manual) (1.3-7.7) k/uL Monocytes # (Manual) (0-1.0) k/uL Metamyelocytes # (Man) (0) k/uL Myelocytes # (Manual) (0) k/uL PT (9.0-12.0) sec INR (<1.2) ABG pH 7.30 L (7.35-7.45) ABG pCO2 34 L (35-45) mmHg ABG pO2 111 H (83-108) mmHg ABG HCO3 17 L (21-25) mmol/L ABG Total CO2 18 L (19-24) mmol/L ABG O2 Saturation 97.7 H (94-97) % Chloride (98-107) mmol/L Carbon Dioxide (22-30) mmol/L BUN (7-17) mg/dL Creatinine (0.52-1.04) mg/dL Glucose (74-99) mg/dL POC Glucose (mg/dL) 69 L 187 H (75-99) mg/dL Calcium (8.4-10.2) mg/dL Total Bilirubin (0.2-1.3) mg/dL AST (14-36) U/L ALT (4-34) U/L Total Protein (6.3-8.2) g/dL Albumin (3.5-5.0) g/dL 07/11/21 07/12/21 07/12/21 Range/Units 23:54 04:21 04:21 WBC 21.8 H (3.8-10.6) k/uL RBC 3.60 L (3.80-5.40) m/uL Hgb 10.4 L (11.4-16.0) gm/dL Hct 32.6 L (34.0-46.0) % Neutrophils # (Manual) 19.10 H (1.3-7.7) k/uL Monocytes # (Manual) 1.09 H (0-1.0) k/uL Metamyelocytes # (Man) 0.44 H (0) k/uL Myelocytes # (Manual) 0.22 H (0) k/uL PT 28.8 H (9.0-12.0) sec INR 2.9 H (<1.2) ABG pH (7.35-7.45) ABG pCO2 (35-45) mmHg ABG pO2 (83-108) mmHg ABG HCO3 (21-25) mmol/L ABG Total CO2 (19-24) mmol/L ABG O2 Saturation (94-97) % Chloride (98-107) mmol/L Carbon Dioxide (22-30) mmol/L BUN (7-17) mg/dL Creatinine (0.52-1.04) mg/dL Glucose (74-99) mg/dL POC Glucose (mg/dL) 102 H (75-99) mg/dL Calcium (8.4-10.2) mg/dL Total Bilirubin (0.2-1.3) mg/dL AST (14-36) U/L ALT (4-34) U/L Total Protein (6.3-8.2) g/dL Albumin (3.5-5.0) g/dL 07/12/21 07/12/21 Range/Units 04:21 05:16 WBC (3.8-10.6) k/uL RBC (3.80-5.40) m/uL Hgb (11.4-16.0) gm/dL Hct (34.0-46.0) % Neutrophils # (Manual) (1.3-7.7) k/uL Monocytes # (Manual) (0-1.0) k/uL Metamyelocytes # (Man) (0) k/uL Myelocytes # (Manual) (0) k/uL PT (9.0-12.0) sec INR (<1.2) ABG pH 7.16 L* (7.35-7.45) ABG pCO2 34 L (35-45) mmHg ABG pO2 223 H (83-108) mmHg ABG HCO3 12 L (21-25) mmol/L ABG Total CO2 13 L (19-24) mmol/L ABG O2 Saturation 99.0 H (94-97) % Chloride 117 H (98-107) mmol/L Carbon Dioxide 13 L (22-30) mmol/L BUN 46 H (7-17) mg/dL Creatinine 2.68 H (0.52-1.04) mg/dL Glucose 72 L (74-99) mg/dL POC Glucose (mg/dL) (75-99) mg/dL Calcium 8.3 L (8.4-10.2) mg/dL Total Bilirubin 1.7 H (0.2-1.3) mg/dL AST 4763 H (14-36) U/L ALT 1213 H (4-34) U/L Total Protein 5.6 L (6.3-8.2) g/dL Albumin 2.7 L (3.5-5.0) g/dL Microbiology - Last 24 Hours (Table) 07/10/21 18:01 Nasal Screen MRSA/MSSA - Final Nasal Swab 07/11/21 12:45 Gram Stain - Preliminary Bronchial Washings - Left Bronchial Washings Culture - Preliminary 07/09/21 16:20 Blood Culture - Preliminary Blood No Growth after 48 hours 07/09/21 16:30 Blood Culture - Preliminary Blood No Growth after 48 hours 07/11/21 12:45 Fungal Culture - Preliminary Bronchial Washings - Left 07/11/21 12:45 Acid Fast Bacilli Culture - Preliminary Bronchial Washings - Left 07/10/21 04:23 Gram Stain - Preliminary Sputum Sputum Culture - Preliminary Heidi albicans Assessment and Plan Assessment: Acute hypoxemic respiratory failure secondary to left lower lobe pneumonia, status post intubation and mechanical ventilation as well as bronchoscopy on 07/11/2021. Acute hypoxemic respiratory failure secondary to pneumonia and COPD. History of COPD from previous significant tobacco use. History of hypertension. History of hyperlipidemia. Status post pacemaker implantation. Vague history of CHF. Plan: Plan dated 07/10/2021. Currently, the patient's on azithromycin and Zosyn. The patient is also getting any treatments with albuterol sulfate and ipratropium bromide. We will continue to follow make recommendations were appropriate. Prognosis is certainly guarded. The CAT scan, x-rays, and medications are all reviewed. The patient should have outpatient evaluation of her chronic lung disease once she is better and is discharged. Infectious disease should see this patient. Plan dated 07/11/2021. The patient was transferred to the intensive care unit for further monitoring and management. She was transferred sometime after midnight. She remains on BiPAP. Saturations are reasonable. Chest x-ray shows near complete opacification of the left lung. We recommend the right lung to be down, and significant chest physiotherapy to the left lung. Additional recommendations and suggestions are forthcoming. Labs, x-rays, and medications are reviewed. We'll continue to follow. Plan dated 07/12/2021. The patient was intubated and mechanically ventilated yesterday, 07/11/2021. In addition, an arterial line was placed, as well as a central line, and the patient underwent bronchoscopy. Currently everything is pending. The patient remains on the mechanical ventilator. She is on propofol at 15 mcg/kg/m, and norepinephrine at 61 mcg/m. I'm going to add vasopressin to her regimen. Will have nephrology see her for her worsening renal function and poor urine output. Cortisol level was adequate. She remains on Zosyn as per infectious diseases. I did have a very long conversation with her daughter. I explained to the daughter that we are giving her best supportive care. The patient remains a full code at this time. Time with Patient: Greater than 30
--- NOTE | 2021-07-12 13:32 | P.NPCON ---
History of Present Illness - Reason for Consult Consult date: 07/12/21 acute renal failure - Chief Complaint Acute kidney injury - History of Present Illness This is 71-year-old female seen in consultation because of acute kidney injury. She was recently admitted to an outside hospital for pneumonia and had pacemaker changed she is discharged with oral antibiotic but continued to have cough and shortness of breath. Came to the hospital back and chest x-ray showed bilateral pneumonia with the left lung severely involved more than the right. Computed tomography scan of the chest showed dense consolidation but also involving the right lung. No pleural effusion. Cardiomegaly with marked left atrial enlargement and calcification in the coronary vessels. No pericardial effusion. She was then was intubated yesterday and started on levo fed and currently is on the ventilator. Her creatinine was 1.78 on admission and currently is 2.6. She is almost anuri c. Blood pressures in the 100 and range heart rate in the 90s temp is 100.3 Currently she is on levo fed and vasopressin as well as sodium bicarbonate drip Past Medical History Past Medical History: COPD History of Any Multi-Drug Resistant Organisms: None Reported Past Surgical History: Cardiac Valve Replacement, Heart Catheterization, Pacemaker Past Anesthesia/Blood Transfusion Reactions: No Reported Reaction Type of Cardiac Device: Permanent Pacemaker, AICD Device Placement Date:: may 2021 Past Psychological History: No Psychological Hx Reported Smoking Status: Former smoker - Past Family History Mother Family Medical History: Myocardial Infarction ([place]) Father Family Medical History: Myocardial Infarction ([place]) Medications and Allergies Home Medications Medication Instructions Recorded Confirmed Type ALPRAZolam [Xanax] 1 mg PO TID PRN 07/09/21 07/09/21 History Beets Supplement 500mg 500 mg PO DAILY 07/09/21 07/09/21 History Cholecalciferol [Vitamin D3 (25 25 mcg PO DAILY 07/09/21 07/09/21 History Mcg = 1000 Iu)] Collagen + Biotin 1 cap PO DAILY 07/09/21 07/09/21 History Cyanocobalamin [Vitamin B-12] 500 mcg PO DAILY 07/09/21 07/09/21 History Ferrous Gluconate 324 mg PO DAILY 07/09/21 07/09/21 History Furosemide [Lasix] 40 mg PO DAILY 07/09/21 07/09/21 History HYDROcodone/APAP 10-325MG [[place] 1 tab PO QID PRN 07/09/21 07/09/21 History 10-325] Hydroxychloroquine Sulfate 200 mg PO DAILY 07/09/21 07/09/21 History [Plaquenil] Losartan [Cozaar] 50 mg PO DAILY 07/09/21 07/09/21 History Simvastatin [Zocor] 20 mg PO DAILY 07/09/21 07/09/21 History Spironolactone [Aldactone] 25 mg PO DAILY 07/09/21 07/09/21 History Torsemide [Demadex] 20 mg PO DAILY 07/09/21 07/09/21 History Warfarin [Coumadin] 2 mg PO DAILY 07/09/21 07/09/21 History Zolpidem [Ambien] 10 mg PO HS 07/09/21 07/09/21 History guaiFENesin-Coden 100-10MG/5ML 5 ml PO TID PRN 07/09/21 07/09/21 History [Robitussin AC] minoxidiL 1.25 mg PO DAILY 07/09/21 07/09/21 History Allergies Allergy/AdvReac Type Severity Reaction Status Date / Time SURGICAL TAPE Allergy BLISTERS Uncoded 07/09/21 16:05 Physical Exam Vitals: Vital Signs Temp Pulse Resp BP Pulse Ox 07/12/21 12:06 94 07/12/21 12:00 100.3 F H 98 24 107/51 97 07/12/21 11:52 93 07/12/21 11:00 90 24 109/59 97 07/12/21 10:00 91 24 100/36 97 07/12/21 09:00 89 24 98/44 98 07/12/21 08:00 100.4 F H 89 24 97/49 97 07/12/21 07:43 84 07/12/21 07:24 89 07/12/21 07:00 89 24 100/46 88 L 07/12/21 06:00 92 24 105/54 90 L 07/12/21 05:00 89 24 106/56 99 07/12/21 04:08 92 07/12/21 04:00 98.1 F 93 24 103/46 95 07/12/21 03:57 88 07/12/21 03:00 92 25 H 93/60 96 07/12/21 02:00 92 24 105/58 95 07/12/21 01:00 93 25 H 100/63 94 L 07/12/21 00:55 94 07/12/21 00:46 96 07/12/21 00:00 101.6 F H 100 25 H 102/56 95 07/11/21 23:35 96 25 H 96 07/11/21 23:00 94 25 H 101/47 95 07/11/21 22:00 99 24 105/51 96 07/11/21 21:00 97 26 H 109/45 98 07/11/21 20:00 99.1 F 99 24 124/47 95 07/11/21 19:49 100 07/11/21 19:29 102 H 07/11/21 19:00 103 H 24 102/50 94 L 07/11/21 18:00 97 24 100/36 96 07/11/21 17:00 101 H 24 100/36 97 07/11/21 16:17 100 07/11/21 16:00 99.8 F H 105 H 24 104/33 97 07/11/21 15:55 102 H 07/11/21 15:00 98 24 101/48 95 07/11/21 14:00 112 H 24 98/61 95 Intake and Output 07/11/21 07/12/21 07/12/21 22:59 06:59 14:59 Intake Total 0895.130 1662.366 849.245 Output Total 145 45 30 Balance 0243.655 1890.366 819.245 Intake: IV 1730 600 740 Azithromycin 500 mg In 250 Sodium Chloride 0.9% 250 ml @ 250 mls/hr IVPB DAILY [facility] Rx#:[id number] Dextrose 5% in Water 1, 600 000 ml @ 100 mls/hr IV . Q11H [facility] with Sodium Bicarb (1 Meq/ml) 100 ml Rx#:[id number] Lactated Ringers 1,000 ml 300 600 @ 75 mls/hr IV .[id number] [facility] Rx#:[id number] Lactated Ringers 1,000 ml 1000 @ 999 mls/hr IV .Q1H1M [facility] Rx#:[id number] Piperacillin-Tazobactam 3 100 100 .375 gm In Sodium Chloride 0.9% 100 ml @ 25 mls/hr IVPB Q8HR [facility] Rx# :[id number] Sodium Chloride 0.9 % @ 80 40 20mls/hr Intake, IV Titration 94.020 342.366 109.245 Amount Norepinephrine 32 mg In 65.695 271.256 86.755 Sodium Chloride 0.9% 218 ml @ 0.05 MCG/KG/MIN 1. 425 mls/hr IV .Q24H [facility] Rx#:[id number] propofoL 1,000 mg In 28.325 71.110 22.490 Empty Bag 1 bag @ 5 MCG/ KG/MIN 1.823 mls/hr IV . Q24H [facility] Rx#:[id number] Tube Feeding 100 Other 60 Output: Urine 145 45 30 Other: Voiding Method Indwelling Catheter Indwelling Catheter Indwelling Catheter Weight 73 kg ABP, PAP, CO, CI - Last 8 Hours Arterial Blood Pressure 96/55 Arterial Blood Pressure 89/48 Arterial Blood Pressure 106/49 Arterial Blood Pressure 96/46 Arterial Blood Pressure 92/45 Arterial Blood Pressure 92/47 Arterial Blood Pressure 87/44 On examination she is sedated and intubated Lungs are showing diminished breath sounds bilaterally Heart sounds are unremarkable for any murmur rub gallop Abdomen soft nondistended no masses felt Extremity exam reveals trace edema Neurologically obtunded Results - Lab Results Most recent lab results ABG pH 7.16 (7.35-7.45) L* 07/12/21 05:16 ABG pCO2 34 mmHg (35-45) L 07/12/21 05:16 ABG pO2 223 mmHg (83-108) H 07/12/21 05:16 ABG HCO3 12 mmol/L (21-25) L 07/12/21 05:16 ABG O2 Saturation 99.0 % (94-97) H 07/12/21 05:16 Calcium 8.3 mg/dL (8.4-10.2) L 07/12/21 04:21 Magnesium 1.6 mg/dL (1.6-2.3) 07/11/21 00:38 07/12/21 04:21 07/12/21 04:21 Assessment and Plan Assessment: Impression 1. Acute kidney injury secondary to sepsis with severe pneumonia bilaterally. Rule out pulmonary renal syndrome. 2. Non-gap acidosis secondary to sepsis and acute kidney injury. 3. Bilateral pneumonia left worse than the right 4. History of atrial fibrillation, currently paced rhythm 5. History of COPD 6. History of coronary artery bypass graft and mitral valve replacement. Recommendation 1. Check lactic acid 2. Check urine analysis and urine protein to creatinine ratio 3. Check ANCA 4. If not much done check for:COVID 5. Continue sodium bicarbonate drip and monitor labs. Thank you for this consultation and will continue to follow she may end up on dialysis soon
[2021-07-12 13:49] LABS: Creatinine,Urine Random 97.8 mg/dL; Protein/Creatinine Ratio,Urine 1.984
[2021-07-12] MEDS ORDERED: ANIDULAFUNGIN 200 MG in SODIUM CHLORIDE 0.9% 200 ML IVPB ONE (17:12)
[2021-07-12] MEDS ORDERED: WARFARIN 0.5 MG TAB PO ONE (18:00)
[2021-07-12 18:15] LABS: Glucose,Whole Blood 110 mg/dL (75-99)
--- NOTE | 2021-07-12 18:50 | PN ---
PROGRESS NOTE DATE OF SERVICE: 07/12/2021 This 71-year-old woman who was admitted with acute bilateral pneumonia had acute hypoxic respiratory failure. Patient is on mechanical ventilation. Patient also had renal failure with creatinine of 2.68. Lactic acid is also elevated. The patient is on broad-spectrum IV antibiotics. Liver function tests are also elevated. The sputum culture showed Heidi albicans and the bronchial washings also showed Heidi albicans. The patient is on IV antibiotics. Past medical history reviewed. Review of systems could not be taken because the patient is on mechanical tension. Current medication list is reviewed. PHYSICAL EXAMINATION: Mechanically ventilated and sedated. Pulse 92, blood pressure NTD, respiration 24. Mechanical ventilation settings are noted. HEENT: Conjunctivae normal. NECK: No jugular venous distention. CARDIOVASCULAR: S1, S2 muffled. RESPIRATION: Breath sounds diminished at the bases. Bilateral scattered rhonchi and crackles. ABDOMEN: Soft. NERVOUS SYSTEM: Sedated. LABS: Reviewed. WBC 21.3. Chest x-ray reviewed personally. ASSESSMENT: 1. Acute bilateral pneumonia, left more than the right, with sepsis with acute hypoxic respiratory failure, on mechanical ventilation. 2. Heidi albicans from the bronchial washings; possible fungal pneumonia. 3. Increased white count. 4. Acute renal failure. 5. Troponin 0.354; possible demand ischemia. 6. Chronic obstructive pulmonary disease, acute exacerbation. 7. History of pacemaker. 8. History of AICD. RECOMMENDATIONS AND DISCUSSION: I recommend to continue current medications, continue with the monitoring, symptomatic treatment. Continue with antibiotics. Continue the bronchodilators. Continue the mechanical ventilation. Prognosis guarded. Also recommend antifungals. Guarded prognosis. Further recommendations to follow. MMODL / IJN: [id number] / ELIZABETH
--- NOTE | 2021-07-12 21:23 | P.PN ---
Subjective Progress Note Date: 07/12/21 Principal diagnosis: Pneumonia Patient is a 71-year-old female with a past medical history significant for COPD and recent admission to [facility] for pneumonia pr esented to hospital with increasing shortness of breath and cough with a CT suspicious for left lower lobe pneumonia. On today's evaluation that is 07/12/2021, the patient did spike a fever of 101F this morning, the patient remains to be intubated on the vent, FiO2 is currently 50%, no significant purulent secretion through the ET diarrhea or any other changes reported by the nursing staff Objective - Vital Signs Vital signs: Vital Signs Temp 100.4 F H 07/12/21 08:00 Pulse 93 07/12/21 11:52 Resp 24 07/12/21 10:00 BP 100/36 07/12/21 10:00 Pulse Ox 97 07/12/21 10:00 Intake & Output 07/11/21 07/12/21 07/12/21 18:59 06:59 18:59 Intake Total 2961.546 2402.366 749.245 Output Total 600 70 30 Balance 2361.546 2332.366 719.245 Weight 73 kg Intake: IV 2860 1900 640 Azithromycin 500 mg In 250 Sodium Chloride 0.9% 250 ml @ 250 mls/hr IVPB DAILY [facility] Rx#:[id number] Dextrose 5% in Water 1, 500 000 ml @ 100 mls/hr IV . Q11H [facility] with Sodium Bicarb (1 Meq/ml) 100 ml Rx#:[id number] Lactated Ringers 1,000 ml 900 @ 75 mls/hr IV .[id number] [facility] Rx#:[id number] Lactated Ringers 1,000 ml 1000 @ 999 mls/hr IV .Q1H1M [facility] Rx#:[id number] Piperacillin-Tazobactam 3 200 100 .375 gm In Sodium Chloride 0.9% 100 ml @ 25 mls/hr IVPB Q8HR [facility] Rx# :[id number] Sodium Chloride 0.9 % @ 160 40 20mls/hr Sodium Chloride 0.9% 2, 2250 000 ml @ 999 mls/hr IV . Q2H1M [facility] Rx#:[id number] Intake, IV Titration 101.546 342.366 109.245 Amount Norepinephrine 32 mg In 73.221 271.256 86.755 Sodium Chloride 0.9% 218 ml @ 0.05 MCG/KG/MIN 1. 425 mls/hr IV .Q24H [facility] Rx#:[id number] propofoL 1,000 mg In 28.325 71.110 22.490 Empty Bag 1 bag @ 5 MCG/ KG/MIN 1.823 mls/hr IV . Q24H [facility] Rx#:[id number] Tube Feeding 100 Other 60 Output: Urine 600 70 30 Other: Voiding Method Indwelling Catheter Indwelling Catheter ABP, PAP, CO, CI - Last Documented Arterial Blood Pressure 106/49 - Exam GENERAL DESCRIPTION: An elderly female intubated on vent RESPIRATORY SYSTEM: Unlabored breathing , decreased breath sounds at bases HEART: S1 S2 regular rate and rhythm , ABDOMEN: Soft , no tenderness EXTREMITIES: No edema feet - Labs CBC & Chem 7: 07/12/21 04:21 07/12/21 04:21 Labs: Abnormal Lab Results - Last 24 Hours (Table) 07/11/21 07/11/21 07/11/21 Range/Units 13:04 18:24 19:07 WBC (3.8-10.6) k/uL RBC (3.80-5.40) m/uL Hgb (11.4-16.0) gm/dL Hct (34.0-46.0) % Neutrophils # (Manual) (1.3-7.7) k/uL Monocytes # (Manual) (0-1.0) k/uL Metamyelocytes # (Man) (0) k/uL Myelocytes # (Manual) (0) k/uL PT (9.0-12.0) sec INR (<1.2) ABG pH 7.30 L (7.35-7.45) ABG pCO2 34 L (35-45) mmHg ABG pO2 111 H (83-108) mmHg ABG HCO3 17 L (21-25) mmol/L ABG Total CO2 18 L (19-24) mmol/L ABG O2 Saturation 97.7 H (94-97) % Chloride (98-107) mmol/L Carbon Dioxide (22-30) mmol/L BUN (7-17) mg/dL Creatinine (0.52-1.04) mg/dL Glucose (74-99) mg/dL POC Glucose (mg/dL) 69 L 187 H (75-99) mg/dL Calcium (8.4-10.2) mg/dL Total Bilirubin (0.2-1.3) mg/dL AST (14-36) U/L ALT (4-34) U/L Total Protein (6.3-8.2) g/dL Albumin (3.5-5.0) g/dL 07/11/21 07/12/21 07/12/21 Range/Units 23:54 04:21 04:21 WBC 21.8 H (3.8-10.6) k/uL RBC 3.60 L (3.80-5.40) m/uL Hgb 10.4 L (11.4-16.0) gm/dL Hct 32.6 L (34.0-46.0) % Neutrophils # (Manual) 19.10 H (1.3-7.7) k/uL Monocytes # (Manual) 1.09 H (0-1.0) k/uL Metamyelocytes # (Man) 0.44 H (0) k/uL Myelocytes # (Manual) 0.22 H (0) k/uL PT 28.8 H (9.0-12.0) sec INR 2.9 H (<1.2) ABG pH (7.35-7.45) ABG pCO2 (35-45) mmHg ABG pO2 (83-108) mmHg ABG HCO3 (21-25) mmol/L ABG Total CO2 (19-24) mmol/L ABG O2 Saturation (94-97) % Chloride (98-107) mmol/L Carbon Dioxide (22-30) mmol/L BUN (7-17) mg/dL Creatinine (0.52-1.04) mg/dL Glucose (74-99) mg/dL POC Glucose (mg/dL) 102 H (75-99) mg/dL Calcium (8.4-10.2) mg/dL Total Bilirubin (0.2-1.3) mg/dL AST (14-36) U/L ALT (4-34) U/L Total Protein (6.3-8.2) g/dL Albumin (3.5-5.0) g/dL 07/12/21 07/12/21 07/12/21 Range/Units 04:21 05:16 11:48 WBC (3.8-10.6) k/uL RBC (3.80-5.40) m/uL Hgb (11.4-16.0) gm/dL Hct (34.0-46.0) % Neutrophils # (Manual) (1.3-7.7) k/uL Monocytes # (Manual) (0-1.0) k/uL Metamyelocytes # (Man) (0) k/uL Myelocytes # (Manual) (0) k/uL PT (9.0-12.0) sec INR (<1.2) ABG pH 7.16 L* (7.35-7.45) ABG pCO2 34 L (35-45) mmHg ABG pO2 223 H (83-108) mmHg ABG HCO3 12 L (21-25) mmol/L ABG Total CO2 13 L (19-24) mmol/L ABG O2 Saturation 99.0 H (94-97) % Chloride 117 H (98-107) mmol/L Carbon Dioxide 13 L (22-30) mmol/L BUN 46 H (7-17) mg/dL Creatinine 2.68 H (0.52-1.04) mg/dL Glucose 72 L (74-99) mg/dL POC Glucose (mg/dL) 107 H (75-99) mg/dL Calcium 8.3 L (8.4-10.2) mg/dL Total Bilirubin 1.7 H (0.2-1.3) mg/dL AST 4763 H (14-36) U/L ALT 1213 H (4-34) U/L Total Protein 5.6 L (6.3-8.2) g/dL Albumin 2.7 L (3.5-5.0) g/dL Microbiology - Last 24 Hours (Table) 07/10/21 18:01 Nasal Screen MRSA/MSSA - Final Nasal Swab 07/11/21 12:45 Gram Stain - Preliminary Bronchial Washings - Left Bronchial Washings Culture - Preliminary 07/09/21 16:20 Blood Culture - Preliminary Blood No Growth after 48 hours 07/09/21 16:30 Blood Culture - Preliminary Blood No Growth after 48 hours 07/11/21 12:45 Fungal Culture - Preliminary Bronchial Washings - Left 07/11/21 12:45 Acid Fast Bacilli Culture - Preliminary Bronchial Washings - Left 07/10/21 04:23 Gram Stain - Preliminary Sputum Sputum Culture - Preliminary Heidi albicans Assessment and Plan (1) Pneumonia Current Visit: Yes Status: Acute Code(s): J18.9 - PNEUMONIA, UNSPECIFIED ORGANISM SNOMED Code(s): 547837687 Plan: 1patient presented to hospital with acute respiratory failure with in this patient did have hypoxemia increasing shortness of breath and cough with evidence of left lower lobe pneumonia on the CT and recently admitted and treated at [facility] having intercourse for the gram-negative pathogen. 2patient did have worsening of respiratory status requiring intubation patient is status post bronchoscopy and lavage those cultures are growing Heidi which is more likely colonizer 3patient is currently covered with Zosyn 3.375 g every 8 hours which will be continued 2. Will repeat blood cultures in view of the new fever Time with Patient: Less than 30
[2021-07-13] MEDS: PIPERACILLIN-TAZOBACTAM 3.375 GM in SODIUM CHLORIDE 0.9% 100 ML IVPB SCH ×3 (00:22→21:20)
[2021-07-13] MEDS: METOCLOPRAMIDE 5 MG/ML 2 ML VIAL IVP SCH ×4 (00:22→17:53)
[2021-07-13] MEDS: NOREPINEPHRINE 32 MG in SODIUM CHLORIDE 0.9% 218 ML IV SCH ×2 (00:22→11:55)
[2021-07-13 00:43] LABS: Glucose,Whole Blood 87 mg/dL (75-99)
[2021-07-13] MEDS: IPRATROPIUM-ALBUTEROL 3 ML NEB INHALATION SCH ×6 (03:03→23:58)
[2021-07-13] MEDS: DEXTROSE 5% IN WATER 1,000 ML with SODIUM BICARB (1 MEQ/ML) 100 ML IV SCH (03:58)
[2021-07-13 04:35] LABS: Calcium 7.5 mg/dL (8.4-10.2)
[2021-07-13 04:49] LABS: Prothrombin Time 64.9 sec (9.0-12.0)
[2021-07-13 04:51] LABS: INR 6.4 (<1.2)
[2021-07-13 04:55] LABS: Basophils # (A) 0.3 k/uL (0-0.2); Basophils % (A) 1 %; Eosinophils # (A) 0.1 k/uL (0-0.7); Eosinophils % (A) 0 %; HGB 10.1 gm/dL (11.4-16.0); Hypochromasia Slight; Lymphocytes # (A) 1.3 k/uL (1.0-4.8); Lymphocytes % (A) 5 %; MCHC 31.5 g/dL (31.0-37.0); Mean Platelet Volume 10.7; Monocytes # (A) 1.1 k/uL (0-1.0); Monocytes % (A) 4 %; Neutrophils # (A) 22.4 k/uL (1.3-7.7); Neutrophils % (A) 88 %; Platelet Count 270 k/uL (150-450); RBC 3.59 m/uL (3.80-5.40); RDW 14.8 % (11.5-15.5); WBC 25.4 k/uL (3.8-10.6)
[2021-07-13 05:09] LABS: ABG Base Excess -10.6 mmol/L; ABG HCO3 16 mmol/L (21-25); ABG Oxygen Saturation 98.3 % (94-97); ABG PCO2 36 mmHg (35-45); ABG PH 7.27 (7.35-7.45); ABG PO2 146 mmHg (83-108); ABG TCO2 18 mmol/L (19-24)
[2021-07-13] MEDS ORDERED: FUROSEMIDE 10 MG/ML 4 ML VIAL ONE (09:00)
[2021-07-13] MEDS ORDERED: SPIRONOLACTONE 25 MG TAB ONE (09:00)
[2021-07-13] MEDS ORDERED: METOCLOPRAMIDE 5 MG/ML 2 ML VIAL ONE (09:00)
[2021-07-13] MEDS ORDERED: CHLORHEXIDINE GLUCONATE 15 ML CUP MUCOUS MEM ONE (09:00)
[2021-07-13] MEDS ORDERED: HYDROXYCHLOROQUINE SULFATE 200 MG TAB ONE (09:00)
[2021-07-13 11:33] LABS: Glucose,Whole Blood 136 mg/dL (75-99)
[2021-07-13] MEDS: ANIDULAFUNGIN 100 MG in SODIUM CHLORIDE 0.9% 100 ML IVPB SCH (11:53)
[2021-07-13] MEDS: minoxidiL 2.5 MG TAB PO SCH (11:53)
[2021-07-13] MEDS: HYDROXYCHLOROQUINE SULFATE 200 MG TAB PO SCH (11:53)
[2021-07-13] MEDS: LOSARTAN 50 MG TAB PO SCH (11:53)
[2021-07-13] MEDS: SPIRONOLACTONE 25 MG TAB PO SCH (11:54)
[2021-07-13] MEDS ORDERED: PHYTONADIONE 5 MG in SODIUM CHLORIDE 0.9% 50 ML IVPB STA (12:06)
--- NOTE | 2021-07-13 12:06 | P.PN ---
Subjective Progress Note Date: 07/13/21 On 07/13/2021, the patient is being seen in intensive care unit for acute hypoxic respiratory failure/pneumonia/sepsis. The patient is a 69-year-old female who was seen in [facility] for some increased cough and congestion and hypoxemia. The patient subsequently decompensated. The patient went on a BiPAP and at a later stage, the patient had to be intubated and placed on a mechanical ventilator. The patient is known to have CAD, coronary artery bypass, and a previous history of pacemaker insertion. For now, the patient is being treated for a pneumonia and acute hypoxic respiratory failure. The patient had essentially a left lung pneumonia and the chest x-ray was showing extensive consolidation of the left lung for which the patient underwent a bronchoscopy and the bronchioloalveolar lavage of the left lung and there is also consistent with Heidi. The patient is currently covered with accommodation IV Zosyn and IV Eraxis. Meanwhile, the patient had a negative COVID 19 testing, blood culture was negative, and the patient remains sedated on top of for which is running at 20 mcg/kg per minute. The patient is on a combination of pressors and the patient is currently on physiologic dose of vasopressin at 0.03 units per minute and the patient is also on norepinephrine 0.83 mcg/kg per minute. Cardiac rhythm is paced with occasional PVCs. The patient is on a mechanical ventilator on assist control mode at a rate of 24 with a tidal volume of 400 and FiO2 of 50% with a PEEP of 10. The blood gases from today showed a pH of 7.26 with a pCO2 of 36 and pO2 of 146. The chest x- ray is showing some limited improvement in the left lung consolidation. The patient is still febrile and the patient is running a temperature of 100.2 this morning. In terms of blood work, the white cell count is on the rise and currently is up to 25.4 and hemoglobin is at 10.1 with a platelet count of 270. The patient has a acute kidney injury. Creatinine is up to 3.8 with a BUN of 53 and a sodium level of 140. Serum bicarbonate 16. The patient did have also a shock liver yesterday and the AST was 4763 with an ALT of 1213. The echo of the heart showed mild concentric LVH with mild aortic stenosis otherwise negative. Furthermore, the patient is admitted on long-term and to coagulation with warfarin. There is regarding his underlying atrial fibrillation. INR today is at 6.4.the patient has a left IJ triple lumen catheter in place. The patient also has a right radial arterial line. Urine output has been in the order of 20 mL over the past 8 hours. Objective - Vital Signs Vital signs: Vital Signs Temp 100.2 F H 07/13/21 04:00 Pulse 95 07/13/21 04:00 Resp 24 07/13/21 04:00 BP 102/56 07/13/21 04:00 Pulse Ox 97 07/13/21 04:00 Intake & Output 07/12/21 07/13/21 07/13/21 18:59 06:59 18:59 Intake Total 2244.132 1353.321 149.094 Output Total 40 20 Balance 2204.132 1333.321 149.094 Weight 75.1 kg Intake: IV 1780 900 Anidulafungin 200 mg In 200 Sodium Chloride 0.9% 200 ml @ 84 mls/hr IVPB ONCE ONE Rx#:[id number] Dextrose 5% in Water 1, 1300 900 000 ml @ 100 mls/hr IV . Q11H [facility] with Sodium Bicarb (1 Meq/ml) 100 ml Rx#:[id number] Piperacillin-Tazobactam 3 200 .375 gm In Sodium Chloride 0.9% 100 ml @ 25 mls/hr IVPB Q8HR [facility] Rx# :[id number] Sodium Chloride 0.9 % @ 80 20mls/hr Intake, IV Titration 374.132 343.321 149.094 Amount Norepinephrine 32 mg In 315.540 279.545 149.094 Sodium Chloride 0.9% 218 ml @ 0.05 MCG/KG/MIN 1. 425 mls/hr IV .Q24H [facility] Rx#:[id number] propofoL 1,000 mg In 58.592 63.776 Empty Bag 1 bag @ 5 MCG/ KG/MIN 1.823 mls/hr IV . Q24H [facility] Rx#:[id number] Tube Feeding 90 50 Other 60 Output: Urine 40 20 Other: Voiding Method Indwelling Catheter Indwelling Catheter ABP, PAP, CO, CI - Last Documented Arterial Blood Pressure 104/61 - Exam Currently intubated and mechanically ventilated. There is an orally placed endotracheal tube and NG tube.the patient is sedated and calm and comfortable Head exam was generally normal. There was no scleral icterus or corneal arcus. Mucous membranes were moist. HEENT examination is grossly unremarkable. Neck supple. Full range of motion. No adenopathy thyromegaly or neck vein distention. Cardiovascular examination reveals regular rhythm rate. S1-S2 normal. No S3 or S4. No discernible murmur noted. Heart sounds are very distant. Lungs reveal coarse bilateral rhonchi. No wheezes. No crackles. Abnormal lung sounds are greatler in the left chest. Abdomen soft bowel sounds are heard. No masses or tenderness. Extremities are intact. No cyanosis clubbing or edema. Skin is without rash or lesion. Neurologic examination is brief but nonfocal. - Labs CBC & Chem 7: 07/13/21 03:45 07/13/21 03:45 Labs: Abnormal Lab Results - Last 24 Hours (Table) 07/12/21 07/12/21 07/12/21 Range/Units 04:21 16:03 18:13 WBC (3.8-10.6) k/uL RBC (3.80-5.40) m/uL Hgb (11.4-16.0) gm/dL Hct (34.0-46.0) % Neutrophils # (1.3-7.7) k/uL Monocytes # (0-1.0) k/uL Basophils # (0-0.2) k/uL PT (9.0-12.0) sec INR (<1.2) Chloride (98-107) mmol/L Carbon Dioxide (22-30) mmol/L BUN (7-17) mg/dL Creatinine (0.52-1.04) mg/dL Glucose (74-99) mg/dL POC Glucose (mg/dL) 110 H (75-99) mg/dL Plasma Lactic Acid Shaq 6.9 H* (0.7-2.0) mmol/L Calcium (8.4-10.2) mg/dL Lactate Dehydrogenase 35039 H (313-618) U/L 07/13/21 07/13/21 07/13/21 Range/Units 03:45 03:45 03:45 WBC 25.4 H (3.8-10.6) k/uL RBC 3.59 L (3.80-5.40) m/uL Hgb 10.1 L (11.4-16.0) gm/dL Hct 32.0 L (34.0-46.0) % Neutrophils # 22.4 H (1.3-7.7) k/uL Monocytes # 1.1 H (0-1.0) k/uL Basophils # 0.3 H (0-0.2) k/uL PT 64.9 H (9.0-12.0) sec INR 6.4 H* (<1.2) Chloride 109 H (98-107) mmol/L Carbon Dioxide 16 L (22-30) mmol/L BUN 53 H (7-17) mg/dL Creatinine 3.88 H (0.52-1.04) mg/dL Glucose 121 H (74-99) mg/dL POC Glucose (mg/dL) (75-99) mg/dL Plasma Lactic Acid Shaq (0.7-2.0) mmol/L Calcium 7.5 L (8.4-10.2) mg/dL Lactate Dehydrogenase (313-618) U/L 07/13/21 Range/Units 11:32 WBC (3.8-10.6) k/uL RBC (3.80-5.40) m/uL Hgb (11.4-16.0) gm/dL Hct (34.0-46.0) % Neutrophils # (1.3-7.7) k/uL Monocytes # (0-1.0) k/uL Basophils # (0-0.2) k/uL PT (9.0-12.0) sec INR (<1.2) Chloride (98-107) mmol/L Carbon Dioxide (22-30) mmol/L BUN (7-17) mg/dL Creatinine (0.52-1.04) mg/dL Glucose (74-99) mg/dL POC Glucose (mg/dL) 136 H (75-99) mg/dL Plasma Lactic Acid Shaq (0.7-2.0) mmol/L Calcium (8.4-10.2) mg/dL Lactate Dehydrogenase (313-618) U/L Microbiology - Last 24 Hours (Table) 07/11/21 12:45 Fungal Culture - Preliminary Bronchial Washings - Left Heidi albicans 07/11/21 12:45 Gram Stain - Final Bronchial Washings - Left Bronchial Washings Culture - Final Heidi albicans 07/11/21 12:45 Acid Fast Bacilli Smear - Final Bronchial Washings - Left Acid Fast Bacilli Culture - Preliminary 07/09/21 16:20 Blood Culture - Preliminary Blood No Growth after 72 hours 07/09/21 16:30 Blood Culture - Preliminary Blood No Growth after 72 hours 07/10/21 04:23 Gram Stain - Final Sputum Sputum Culture - Final Heidi albicans 07/10/21 18:01 Nasal Screen MRSA/MSSA - Final Nasal Swab Assessment and Plan Plan: Acute hypoxemic respiratory failure secondary to left lung pneumonia,multifocal, status post intubation and mechanical ventilation as well as bronchoscopy on 07/11/2021.the results of the bronchoscopy is indicating Heidi albicans and the patient is currently on a combination of antibiotics including IV Zosyn and IV Eraxis, infectious disease on the case. Acute hypoxemic respiratory failure secondary to pneumonia and COPD. septic shock with signs of system organ failure. The patient is currently on a combination of pressors including vasopressin physiologic dose norepinephrine Acute kidney injury, secondary to above Acute shock liver History of COPD from previous significant tobacco use. History of hypertension. History of hyperlipidemia. Status post pacemaker implantation. coronary artery disease with previous coronary artery bypass surgery Valvular heart surgery as the patient has a well-healed looks to be a mitral valve ring on the chest x-ray acute leukocytosis Acute Coumadin toxicity acute metabolic acidosis, a combination of anion and non-anion gap type Plan Continue ventilator support and drop the FiO2 down to 40% and of the PEEP down to 8 The patient will be started on bicarb infusion and will monitor the renal function. Urine output is currently low and there is a high likelihood that the patient may need hemodialysis later stage. The findings on the case. Start the patient bicarb infusion at the rate of 100 mL an hour Stop the hydrocodone when Stop the minoxidil Continue with the pressors and a combination of norepinephrine and vasopressin Discontinue the Aldactone Give the patient 5 mg of vitamin K and repeat a PT/INR Monitor LFTs as the patient a shock liver from yesterday's blood work Condition is extremely critical and will continue to follow make further recommendations based on his progress. This evaluation was on a more than 35 minutes of this is a critically care evaluation and the patient carries a very poor prognosis based on presence of septic shock with multisystem organ failure. Time with Patient: Greater than 30
--- NOTE | 2021-07-13 12:13 | P.PN ---
Subjective Patient is seen in follow-up for acute kidney injury. Renal function worsening. Oliguric. On Levophed and vasopressin. Also receiving D5 with 2 A of bicarbonate running at 100 mL an hour. Bicarb level 16 today. Creatinine 3.88. Intubated. Vital signs are stable. On vasopressor support. General: Intubated. LUNGS: Breath sounds decreased. HEART: Tachycardic. ABDOMEN: Soft, no distention. EXTREMITITES: No edema. Objective - Vital Signs Vital signs: Vital Signs Temp 100.2 F H 07/13/21 04:00 Pulse 95 07/13/21 04:00 Resp 24 07/13/21 04:00 BP 102/56 07/13/21 04:00 Pulse Ox 97 07/13/21 04:00 Intake & Output 07/12/21 07/13/21 07/13/21 18:59 06:59 18:59 Intake Total 2244.132 1353.321 149.094 Output Total 40 20 Balance 2204.132 1333.321 149.094 Weight 75.1 kg Intake: IV 1780 900 Anidulafungin 200 mg In 200 Sodium Chloride 0.9% 200 ml @ 84 mls/hr IVPB ONCE ONE Rx#:[id number] Dextrose 5% in Water 1, 1300 900 000 ml @ 100 mls/hr IV . Q11H [facility] with Sodium Bicarb (1 Meq/ml) 100 ml Rx#:[id number] Piperacillin-Tazobactam 3 200 .375 gm In Sodium Chloride 0.9% 100 ml @ 25 mls/hr IVPB Q8HR [facility] Rx# :[id number] Sodium Chloride 0.9 % @ 80 20mls/hr Intake, IV Titration 374.132 343.321 149.094 Amount Norepinephrine 32 mg In 315.540 279.545 149.094 Sodium Chloride 0.9% 218 ml @ 0.05 MCG/KG/MIN 1. 425 mls/hr IV .Q24H [facility] Rx#:[id number] propofoL 1,000 mg In 58.592 63.776 Empty Bag 1 bag @ 5 MCG/ KG/MIN 1.823 mls/hr IV . Q24H [facility] Rx#:[id number] Tube Feeding 90 50 Other 60 Output: Urine 40 20 Other: Voiding Method Indwelling Catheter Indwelling Catheter ABP, PAP, CO, CI - Last Documented Arterial Blood Pressure 104/61 - Labs CBC & Chem 7: 07/13/21 03:45 07/13/21 03:45 Labs: Abnormal Lab Results - Last 24 Hours (Table) 07/12/21 07/12/21 07/12/21 Range/Units 04:21 16:03 18:13 WBC (3.8-10.6) k/uL RBC (3.80-5.40) m/uL Hgb (11.4-16.0) gm/dL Hct (34.0-46.0) % Neutrophils # (1.3-7.7) k/uL Monocytes # (0-1.0) k/uL Basophils # (0-0.2) k/uL PT (9.0-12.0) sec INR (<1.2) Chloride (98-107) mmol/L Carbon Dioxide (22-30) mmol/L BUN (7-17) mg/dL Creatinine (0.52-1.04) mg/dL Glucose (74-99) mg/dL POC Glucose (mg/dL) 110 H (75-99) mg/dL Plasma Lactic Acid Shaq 6.9 H* (0.7-2.0) mmol/L Calcium (8.4-10.2) mg/dL Lactate Dehydrogenase 50299 H (313-618) U/L 07/13/21 07/13/21 07/13/21 Range/Units 03:45 03:45 03:45 WBC 25.4 H (3.8-10.6) k/uL RBC 3.59 L (3.80-5.40) m/uL Hgb 10.1 L (11.4-16.0) gm/dL Hct 32.0 L (34.0-46.0) % Neutrophils # 22.4 H (1.3-7.7) k/uL Monocytes # 1.1 H (0-1.0) k/uL Basophils # 0.3 H (0-0.2) k/uL PT 64.9 H (9.0-12.0) sec INR 6.4 H* (<1.2) Chloride 109 H (98-107) mmol/L Carbon Dioxide 16 L (22-30) mmol/L BUN 53 H (7-17) mg/dL Creatinine 3.88 H (0.52-1.04) mg/dL Glucose 121 H (74-99) mg/dL POC Glucose (mg/dL) (75-99) mg/dL Plasma Lactic Acid Shaq (0.7-2.0) mmol/L Calcium 7.5 L (8.4-10.2) mg/dL Lactate Dehydrogenase (313-618) U/L 07/13/21 Range/Units 11:32 WBC (3.8-10.6) k/uL RBC (3.80-5.40) m/uL Hgb (11.4-16.0) gm/dL Hct (34.0-46.0) % Neutrophils # (1.3-7.7) k/uL Monocytes # (0-1.0) k/uL Basophils # (0-0.2) k/uL PT (9.0-12.0) sec INR (<1.2) Chloride (98-107) mmol/L Carbon Dioxide (22-30) mmol/L BUN (7-17) mg/dL Creatinine (0.52-1.04) mg/dL Glucose (74-99) mg/dL POC Glucose (mg/dL) 136 H (75-99) mg/dL Plasma Lactic Acid Shaq (0.7-2.0) mmol/L Calcium (8.4-10.2) mg/dL Lactate Dehydrogenase (313-618) U/L Microbiology - Last 24 Hours (Table) 07/11/21 12:45 Fungal Culture - Preliminary Bronchial Washings - Left Heidi albicans 07/11/21 12:45 Gram Stain - Final Bronchial Washings - Left Bronchial Washings Culture - Final Heidi albicans 07/11/21 12:45 Acid Fast Bacilli Smear - Final Bronchial Washings - Left Acid Fast Bacilli Culture - Preliminary 07/09/21 16:20 Blood Culture - Preliminary Blood No Growth after 72 hours 07/09/21 16:30 Blood Culture - Preliminary Blood No Growth after 72 hours 07/10/21 04:23 Gram Stain - Final Sputum Sputum Culture - Final Heidi albicans 07/10/21 18:01 Nasal Screen MRSA/MSSA - Final Nasal Swab Assessment and Plan Plan: Assessment: 1. Acute kidney injury secondary to ATN secondary to septic shock. Creatinine was 1.7 at admission and is 3.88 today. Oliguric. 2. Septic shock secondary to pneumonia. Status post bronchoscopy. On vasopressor support and antibiotics. 3. Metabolic acidosis secondary to acute kidney injury and lactic acidosis. 4. Acute hypoxic respiratory failure secondary to pneumonia. Bronchial washings positive for Heidi. 5. Shock liver. Plan: Change IV fluids to D5 with 3 A of bicarb to be run at 100 mL an hour. Lasix 80 mg IV once today. Repeat BMP this evening. If no improvement in urine output and renal function in the next 24 hours, initiate renal replacement therapy. Wean FiO2 and vasopressors. Avoid nephrotoxins.
[2021-07-13] MEDS: SODIUM CHLORIDE 0.9% 150 ML with VASOPRESSIN 60 UNIT IV SCH ×2 (12:20)
[2021-07-13] MEDS: CHLORHEXIDINE GLUCONATE 15 ML CUP MUCOUS MEM SCH ×2 (12:20→21:20)
[2021-07-13] MEDS: DEXTROSE 5% IN WATER 1,000 ML with SODIUM BICARB (1 MEQ/ML) 150 ML IV SCH ×2 (12:21→21:21)
--- NOTE | 2021-07-13 12:21 | XR ---
EXAMINATION TYPE: XR chest 1V portable DATE OF EXAM: 07/13/2021 COMPARISON: 07/12/2021 HISTORY: Tube placement FINDINGS: There are bilateral pleural effusions with cardiomegaly and bibasilar infiltrate. There is a diffuse interstitial pattern. ET tube and NG tube stable. Cardiac device and postsurgical changes noted. Chr onic rib deformities noted. IMPRESSION: 1. Stable findings correlate for CHF versus diffuse pneumonia.
[2021-07-13 14:14] LABS: Allen Test Performed? no
[2021-07-13 17:36] LABS: Glucose,Whole Blood 147 mg/dL (75-99)
[2021-07-13 18:34] LABS: Prothrombin Time 40.1 sec (9.0-12.0)
[2021-07-13 18:37] LABS: Albumin 2.3 g/dL (3.5-5.0); Calcium 7.1 mg/dL (8.4-10.2); Potassium 3.7 mmol/L (3.5-5.1); Total Bilirubin 2.9 mg/dL (0.2-1.3); Total Protein 5.1 g/dL (6.3-8.2)
[2021-07-13 18:51] LABS: Hepatitis B Surface Antigen Nonreactive (Nonreactive)
--- NOTE | 2021-07-13 20:57 | P.PN ---
Subjective Progress Note Date: 07/13/21 Principal diagnosis: Pneumonia Patient is a 71-year-old female with a past medical history significant for COPD and recent admission to [facility] for pneumonia pr esented to hospital with increasing shortness of breath and cough with a CT suspicious for left lower lobe pneumonia. On today's evaluation that is 07/13/2021, the patient fever pattern improved and is afebrile this afternoon, the patient remains to be intubated on the vent, FiO2 is down to 40 %, patient is requiring less pressor support per the nursing staff, no significant purulent secretion through the ET diarrhea or any other changes reported by the nursing staff Objective - Vital Signs Vital signs: Vital Signs Temp 98.1 F 07/13/21 12:00 Pulse 100 07/13/21 12:55 Resp 25 H 07/13/21 12:15 BP 123/85 07/13/21 12:15 Pulse Ox 96 07/13/21 12:15 Intake & Output 07/12/21 07/13/21 07/13/21 18:59 06:59 18:59 Intake Total 2244.132 9863.409 1383.094 Output Total 40 20 160 Balance 2204.132 1333.321 909.094 Weight 75.1 kg Intake: IV 1780 900 800 Anidulafungin 200 mg In 200 200 Sodium Chloride 0.9% 200 ml @ 84 mls/hr IVPB ONCE ONE Rx#:[id number] Bicarb with 3 amps 300 Dextrose 5% in Water 1, 1300 900 200 000 ml @ 100 mls/hr IV . Q11H [facility] with Sodium Bicarb (1 Meq/ml) 100 ml Rx#:[id number] Piperacillin-Tazobactam 3 200 100 .375 gm In Sodium Chloride 0.9% 100 ml @ 25 mls/hr IVPB Q8HR [facility] Rx# :[id number] Sodium Chloride 0.9 % @ 80 20mls/hr Intake, IV Titration 374.132 343.321 149.094 Amount Norepinephrine 32 mg In 315.540 279.545 149.094 Sodium Chloride 0.9% 218 ml @ 0.05 MCG/KG/MIN 1. 425 mls/hr IV .Q24H [facility] Rx#:[id number] propofoL 1,000 mg In 58.592 63.776 Empty Bag 1 bag @ 5 MCG/ KG/MIN 1.823 mls/hr IV . Q24H [facility] Rx#:[id number] Tube Feeding 90 50 60 Other 60 60 Output: Urine 40 20 160 Other: Voiding Method Indwelling Catheter Indwelling Catheter Indwelling Catheter ABP, PAP, CO, CI - Last Documented Arterial Blood Pressure 119/58 - Exam GENERAL DESCRIPTION: An elderly female intubated on vent RESPIRATORY SYSTEM: Unlabored breathing , decreased breath sounds at bases HEART: S1 S2 regular rate and rhythm , ABDOMEN: Soft , no tenderness EXTREMITIES: No edema feet - Labs CBC & Chem 7: 07/13/21 03:45 07/13/21 17:50 Labs: Abnormal Lab Results - Last 24 Hours (Table) 07/12/21 07/12/21 07/12/21 Range/Units 04:21 16:03 18:13 WBC (3.8-10.6) k/uL RBC (3.80-5.40) m/uL Hgb (11.4-16.0) gm/dL Hct (34.0-46.0) % Neutrophils # (1.3-7.7) k/uL Monocytes # (0-1.0) k/uL Basophils # (0-0.2) k/uL PT (9.0-12.0) sec INR (<1.2) Chloride (98-107) mmol/L Carbon Dioxide (22-30) mmol/L BUN (7-17) mg/dL Creatinine (0.52-1.04) mg/dL Glucose (74-99) mg/dL POC Glucose (mg/dL) 110 H (75-99) mg/dL Plasma Lactic Acid Shaq 6.9 H* (0.7-2.0) mmol/L Calcium (8.4-10.2) mg/dL Lactate Dehydrogenase 87864 H (313-618) U/L 07/13/21 07/13/21 07/13/21 Range/Units 03:45 03:45 03:45 WBC 25.4 H (3.8-10.6) k/uL RBC 3.59 L (3.80-5.40) m/uL Hgb 10.1 L (11.4-16.0) gm/dL Hct 32.0 L (34.0-46.0) % Neutrophils # 22.4 H (1.3-7.7) k/uL Monocytes # 1.1 H (0-1.0) k/uL Basophils # 0.3 H (0-0.2) k/uL PT 64.9 H (9.0-12.0) sec INR 6.4 H* (<1.2) Chloride 109 H (98-107) mmol/L Carbon Dioxide 16 L (22-30) mmol/L BUN 53 H (7-17) mg/dL Creatinine 3.88 H (0.52-1.04) mg/dL Glucose 121 H (74-99) mg/dL POC Glucose (mg/dL) (75-99) mg/dL Plasma Lactic Acid Shaq (0.7-2.0) mmol/L Calcium 7.5 L (8.4-10.2) mg/dL Lactate Dehydrogenase (313-618) U/L 07/13/21 Range/Units 11:32 WBC (3.8-10.6) k/uL RBC (3.80-5.40) m/uL Hgb (11.4-16.0) gm/dL Hct (34.0-46.0) % Neutrophils # (1.3-7.7) k/uL Monocytes # (0-1.0) k/uL Basophils # (0-0.2) k/uL PT (9.0-12.0) sec INR (<1.2) Chloride (98-107) mmol/L Carbon Dioxide (22-30) mmol/L BUN (7-17) mg/dL Creatinine (0.52-1.04) mg/dL Glucose (74-99) mg/dL POC Glucose (mg/dL) 136 H (75-99) mg/dL Plasma Lactic Acid Shaq (0.7-2.0) mmol/L Calcium (8.4-10.2) mg/dL Lactate Dehydrogenase (313-618) U/L Microbiology - Last 24 Hours (Table) 07/11/21 12:45 Fungal Culture - Preliminary Bronchial Washings - Left Heidi albicans 07/11/21 12:45 Gram Stain - Final Bronchial Washings - Left Bronchial Washings Culture - Final Heidi albicans 07/11/21 12:45 Acid Fast Bacilli Smear - Final Bronchial Washings - Left Acid Fast Bacilli Culture - Preliminary 07/09/21 16:20 Blood Culture - Preliminary Blood No Growth after 72 hours 07/09/21 16:30 Blood Culture - Preliminary Blood No Growth after 72 hours 07/10/21 04:23 Gram Stain - Final Sputum Sputum Culture - Final Heidi albicans 07/10/21 18:01 Nasal Screen MRSA/MSSA - Final Nasal Swab Assessment and Plan (1) Pneumonia Current Visit: Yes Status: Acute Code(s): J18.9 - PNEUMONIA, UNSPECIFIED ORGANISM SNOMED Code(s): 893929341 Plan: 1patient presented to hospital with acute respiratory failure with in this patient did have hypoxemia increasing shortness of breath and cough with evidence of left lower lobe pneumonia on the CT and recently admitted and treated at [facility] having intercourse for the gram-negative pathogen. 2patient did have worsening of respiratory status requiring intubation patient is status post bronchoscopy and lavage those cultures are growing Heidi which is more likely colonizer 3patient to continue with Zosyn 3.375 g every 8 hours and monitor clinical course closely Time with Patient: Less than 30
[2021-07-13 23:35] LABS: Glucose,Whole Blood 140 mg/dL (75-99)
[2021-07-14] MEDS: INSULIN ASPART (NovoLOG) 100 UNIT/ML VIAL SQ SCH ×4 (00:29→17:27)
[2021-07-14] MEDS: METOCLOPRAMIDE 5 MG/ML 2 ML VIAL IVP SCH ×4 (00:41→17:35)
[2021-07-14 01:05] LABS: Hepatitis B Surface AB- Quant 3.5 mIU/mL; Hepatitis B Surface Antibody Nonreactive (Nonreactive)
[2021-07-14] MEDS: IPRATROPIUM-ALBUTEROL 3 ML NEB INHALATION SCH ×6 (03:35→23:14)
[2021-07-14] MEDS: NOREPINEPHRINE 32 MG in SODIUM CHLORIDE 0.9% 218 ML IV SCH (04:02)
[2021-07-14 04:31] LABS: Basophils # (A) 0.1 k/uL (0-0.2); Basophils % (A) 1 %; Eosinophils # (A) 0.2 k/uL (0-0.7); Eosinophils % (A) 1 %; HGB 9.8 gm/dL (11.4-16.0); Lymphocytes % (A) 4 %; MCHC 32.6 g/dL (31.0-37.0); MCV 85.8 fL (80.0-100.0); Mean Platelet Volume 8.6; Monocytes # (A) 0.8 k/uL (0-1.0); Monocytes % (A) 3 %; Neutrophils # (A) 21.3 k/uL (1.3-7.7); Neutrophils % (A) 91 %; Platelet Count 207 k/uL (150-450); RDW 14.5 % (11.5-15.5); WBC 23.6 k/uL (3.8-10.6)
[2021-07-14 04:42] LABS: Ionized Calcium 4.1 mg/dL (4.5-5.3)
[2021-07-14 04:50] LABS: Albumin 2.2 g/dL (3.5-5.0); INR 2.5 (<1.2); Magnesium 1.6 mg/dL (1.6-2.3); Phosphorus 3.8 mg/dL (2.5-4.5); Potassium 3.4 mmol/L (3.5-5.1); Prothrombin Time 25.4 sec (9.0-12.0); Total Bilirubin 3.4 mg/dL (0.2-1.3); Total Protein 4.8 g/dL (6.3-8.2)
[2021-07-14 05:52] LABS: Glucose,Whole Blood 140 mg/dL (75-99)
[2021-07-14 06:18] LABS: ABG Base Excess 3.3 mmol/L; ABG HCO3 27 mmol/L (21-25); ABG Oxygen Saturation 95.2 % (94-97); ABG PCO2 39 mmHg (35-45); ABG PH 7.45 (7.35-7.45); ABG PO2 74 mmHg (83-108); ABG TCO2 28 mmol/L (19-24)
[2021-07-14 06:27] LABS: Allen Test Performed? No
[2021-07-14 07:31] LABS: Appearance,BF Turbid
[2021-07-14] MEDS: ANIDULAFUNGIN 100 MG in SODIUM CHLORIDE 0.9% 100 ML IVPB SCH (07:58)
[2021-07-14] MEDS: PIPERACILLIN-TAZOBACTAM 3.375 GM in SODIUM CHLORIDE 0.9% 100 ML IVPB SCH ×2 (07:58→21:59)
[2021-07-14] MEDS: CHLORHEXIDINE GLUCONATE 15 ML CUP MUCOUS MEM SCH ×2 (07:58→21:59)
[2021-07-14] MEDS: SODIUM CHLORIDE 0.9% 1,000 ML IV SCH ×2 (08:00→23:30)
--- NOTE | 2021-07-14 08:30 | XR ---
EXAMINATION TYPE: XR chest 1V portable DATE OF EXAM: 07/14/2021 COMPARISON: Chest x-ray 07/13/2021 HISTORY: Intubated TECHNIQUE: Single frontal view of the chest is obtained. FINDINGS: Endotracheal tube and NG tube are overlying appropriate positions. Pacemaker stable, stopp ed changes again noted. Central venous catheter is overlying appropriate position. Pleural-parenchyma l changes are similar to prior exam. There are overlying artifacts. No evident pneumothorax. IMPRESSION: Correlate for pneumonia, edema, congestive heart failure
[2021-07-14] MEDS ORDERED: CALCIUM GLUCONATE IN NACL 1 GM in SALINE 1 100ML.BAG IVPB ONE (09:20)
--- NOTE | 2021-07-14 09:41 | P.PN ---
Subjective Patient is seen in follow-up for acute kidney injury. Renal function stable compared to yesterday. She received 80 mg IV Lasix at the 2021. Patient is now nonoliguric. Urine output has been over 100 mL an hour. On Levophed and vasopressin. Acidosis improved. Intubated. Vital signs are stable. On vasopressor support. General: Intubated. LUNGS: Breath sounds decreased. HEART: Regular rate and rhythm. ABDOMEN: Soft, no distention. EXTREMITITES: No edema. Objective - Vital Signs Vital signs: Vital Signs Temp 97.7 F 07/14/21 04:00 Pulse 88 07/14/21 08:10 Resp 24 07/14/21 07:00 BP 103/62 07/14/21 06:15 Pulse Ox 94 L 07/14/21 07:00 Intake & Output 07/13/21 07/14/21 07/14/21 18:59 06:59 18:59 Intake Total 2004.315 1622.550 217.176 Output Total 980 1425 175 Balance 1024.315 197.550 42.176 Weight 75 kg Intake: IV 1500 1430 210 .9 kvo 130 10 Anidulafungin 200 mg In 200 Sodium Chloride 0.9% 200 ml @ 84 mls/hr IVPB ONCE ONE Rx#:[id number] Bicarb with 3 amps 1000 1200 100 Dextrose 5% in Water 1, 200 000 ml @ 100 mls/hr IV . Q11H [facility] with Sodium Bicarb (1 Meq/ml) 100 ml Rx#:[id number] Piperacillin-Tazobactam 3 100 100 100 .375 gm In Sodium Chloride 0.9% 100 ml @ 25 mls/hr IVPB Q8HR [facility] Rx# :[id number] Intake, IV Titration 364.315 192.550 7.176 Amount Norepinephrine 32 mg In 268.885 93.748 7.176 Sodium Chloride 0.9% 218 ml @ 0.05 MCG/KG/MIN 1. 425 mls/hr IV .Q24H [facility] Rx#:[id number] propofoL 1,000 mg In 95.43 98.802 Empty Bag 1 bag @ 5 MCG/ KG/MIN 1.823 mls/hr IV . Q24H [facility] Rx#:[id number] Tube Feeding 80 0 0 Other 60 Output: Urine 980 1425 175 Other: Voiding Method Indwelling Catheter Indwelling Catheter ABP, PAP, CO, CI - Last Documented Arterial Blood Pressure 115/54 - Labs CBC & Chem 7: 07/14/21 03:53 07/14/21 03:53 Labs: Abnormal Lab Results - Last 24 Hours (Table) 07/12/21 07/13/21 07/13/21 Range/Units 16:03 05:01 11:32 WBC (3.8-10.6) k/uL RBC (3.80-5.40) m/uL Hgb (11.4-16.0) gm/dL Hct (34.0-46.0) % Neutrophils # (1.3-7.7) k/uL PT (9.0-12.0) sec INR (<1.2) ABG pH 7.27 L (7.35-7.45) ABG pO2 146 H (83-108) mmHg ABG HCO3 16 L (21-25) mmol/L ABG Total CO2 18 L (19-24) mmol/L ABG O2 Saturation 98.3 H (94-97) % Potassium (3.5-5.1) mmol/L BUN (7-17) mg/dL Creatinine (0.52-1.04) mg/dL Glucose (74-99) mg/dL POC Glucose (mg/dL) 136 H (75-99) mg/dL Calcium (8.4-10.2) mg/dL Ionized Calcium Meseret (4.5-5.3) mg/dL Total Bilirubin (0.2-1.3) mg/dL AST (14-36) U/L ALT (4-34) U/L Total Protein (6.3-8.2) g/dL Albumin (3.5-5.0) g/dL KELLY Screen POSITIVE A (NEGATIVE) 07/13/21 07/13/21 07/13/21 Range/Units 17:36 17:50 17:50 WBC (3.8-10.6) k/uL RBC (3.80-5.40) m/uL Hgb (11.4-16.0) gm/dL Hct (34.0-46.0) % Neutrophils # (1.3-7.7) k/uL PT 40.1 H (9.0-12.0) sec INR 4.0 H (<1.2) ABG pH (7.35-7.45) ABG pO2 (83-108) mmHg ABG HCO3 (21-25) mmol/L ABG Total CO2 (19-24) mmol/L ABG O2 Saturation (94-97) % Potassium (3.5-5.1) mmol/L BUN 57 H (7-17) mg/dL Creatinine 4.02 H (0.52-1.04) mg/dL Glucose 136 H (74-99) mg/dL POC Glucose (mg/dL) 147 H (75-99) mg/dL Calcium 7.1 L (8.4-10.2) mg/dL Ionized Calcium Meseret (4.5-5.3) mg/dL Total Bilirubin 2.9 H (0.2-1.3) mg/dL AST 3115 H (14-36) U/L ALT 1882 H (4-34) U/L Total Protein 5.1 L (6.3-8.2) g/dL Albumin 2.3 L (3.5-5.0) g/dL KELLY Screen (NEGATIVE) 07/13/21 07/14/21 07/14/21 Range/Units 23:33 03:53 03:53 WBC 23.6 H (3.8-10.6) k/uL RBC 3.50 L (3.80-5.40) m/uL Hgb 9.8 L (11.4-16.0) gm/dL Hct 30.0 L (34.0-46.0) % Neutrophils # 21.3 H (1.3-7.7) k/uL PT (9.0-12.0) sec INR (<1.2) ABG pH (7.35-7.45) ABG pO2 (83-108) mmHg ABG HCO3 (21-25) mmol/L ABG Total CO2 (19-24) mmol/L ABG O2 Saturation (94-97) % Potassium 3.4 L (3.5-5.1) mmol/L BUN 61 H (7-17) mg/dL Creatinine 3.98 H (0.52-1.04) mg/dL Glucose 139 H (74-99) mg/dL POC Glucose (mg/dL) 140 H (75-99) mg/dL Calcium 7.0 L (8.4-10.2) mg/dL Ionized Calcium Meseret 4.1 L (4.5-5.3) mg/dL Total Bilirubin 3.4 H (0.2-1.3) mg/dL AST 1844 H (14-36) U/L ALT 1606 H (4-34) U/L Total Protein 4.8 L (6.3-8.2) g/dL Albumin 2.2 L (3.5-5.0) g/dL KELLY Screen (NEGATIVE) 07/14/21 07/14/21 07/14/21 Range/Units 03:53 05:28 05:51 WBC (3.8-10.6) k/uL RBC (3.80-5.40) m/uL Hgb (11.4-16.0) gm/dL Hct (34.0-46.0) % Neutrophils # (1.3-7.7) k/uL PT 25.4 H (9.0-12.0) sec INR 2.5 H (<1.2) ABG pH (7.35-7.45) ABG pO2 74 L (83-108) mmHg ABG HCO3 27 H (21-25) mmol/L ABG Total CO2 28 H (19-24) mmol/L ABG O2 Saturation (94-97) % Potassium (3.5-5.1) mmol/L BUN (7-17) mg/dL Creatinine (0.52-1.04) mg/dL Glucose (74-99) mg/dL POC Glucose (mg/dL) 140 H (75-99) mg/dL Calcium (8.4-10.2) mg/dL Ionized Calcium Meseret (4.5-5.3) mg/dL Total Bilirubin (0.2-1.3) mg/dL AST (14-36) U/L ALT (4-34) U/L Total Protein (6.3-8.2) g/dL Albumin (3.5-5.0) g/dL KELLY Screen (NEGATIVE) Microbiology - Last 24 Hours (Table) 07/12/21 21:40 Blood Culture - Preliminary Blood No Growth after 24 hours 07/09/21 16:20 Blood Culture - Preliminary Blood No Growth after 96 hours 07/09/21 16:30 Blood Culture - Preliminary Blood No Growth after 96 hours 07/11/21 12:45 Fungal Culture - Preliminary Bronchial Washings - Left Heidi albicans 07/11/21 12:45 Gram Stain - Final Bronchial Washings - Left Bronchial Washings Culture - Final Heidi albicans Assessment and Plan Plan: Assessment: 1. Acute kidney injury secondary to ATN secondary to septic shock. Creatinine was 1.78 at admission and is stable at 3.98 today. Nonoliguric. Unknown baseline renal function. 2. Septic shock secondary to pneumonia. Status post bronchoscopy. On vasopressor support and antibiotics. 3. Metabolic acidosis secondary to acute kidney injury and lactic acidosis. Resolved. 4. Acute hypoxic respiratory failure secondary to pneumonia. Bronchial washings positive for Heidi. 5. Shock liver. AST and ALT trending down. 6. Hypokalemia from diuresis. 7. Hypomagnesemia from diuresis. Plan: Stop bicarb drip. Start normal saline at 75 mL an hour. Status post 80 mg IV Lasix given 07/13/2021. Replace potassium. Wean FiO2 and vasopressors. Avoid nephrotoxins. Continue to monitor renal function and urine output. 1 g IV calcium gluconate. 2 g IV magnesium sulfate. Check renal ultrasound. Check UA.
[2021-07-14] MEDS: MAGNESIUM SULFATE-D5W PMX 1 GM in DEXTROSE/WATER 1 100ML.BAG IVPB SCH ×2 (09:51→11:00)
--- NOTE | 2021-07-14 09:52 | PN ---
PROGRESS NOTE This is a 71-year-old white female. Discussed the case with the daughter. The patient remains in ICU on the ventilator. Dopamine has been cut down by 50%. Vent settings have been decreased today. Patient has bloody urine output with Lasix that was given today. She has been maintaining her blood pressure about 100 or 110 systolic on half the dopamine. She is resting comfortably on the vent. Cardiovascular S1-S2. Lungs with scattered rhonchi and wheeze. Abdomen: No mass. Extremities: No edema. ASSESSMENT: 1. Acute hypoxemic respiratory failure. 2. Healthcare-acquired pneumonia, possibly caught at [facility]. 3. Congestive heart failure component. Prognosis extremely guarded. Discussed with the family. She has been placed on to go with Zosyn. IV diuretics per Cardiology. Prognosis guarded. Wean vent as tolerated. MMNURIAL / IJN: [id number] /
[2021-07-14] MEDS: POTASSIUM CHLORIDE 20 MEQ in WATER FOR INJECTION 1 100ML.BAG IVPB SCH ×2 (10:19→12:23)
[2021-07-14 10:39] LABS: Appearance,Urine Clear (Clear); Bilirubin,Urine Negative (Negative); Blood,Urine Moderate (Negative); Color,Urine Light Yellow; Glucose,Urine (UA) Negative (Negative); Ketones,Urine Negative (Negative); Leukocyte Esterase,Urine Negative (Negative); Nitrite,Urine Negative (Negative); Protein,Urine Trace (Negative); RBC,Urine 13 /hpf (0-5); Specific Gravity,Urine 1.008 (1.001-1.035); Urobilinogen,Urine <2.0 mg/dL (<2.0); WBC,Urine 1 /hpf (0-5)
--- NOTE | 2021-07-14 11:58 | US ---
EXAMINATION TYPE: US kidneys/renal and bladder DATE OF EXAM: 07/14/2021 COMPARISON: NONE CLINICAL HISTORY: indira. Intubated ICU patient with INDIRA, pneumonia per daughter EXAM MEASUREMENTS: Right Kidney: 11.6 x 4.2 x 4.4 cm Left Kidney: 10.4 x 4.9 x 4.5 cm Post Void Residual Volume: not assessed on inpatient with indwelling bladder catheter Right Kidney: superior cortical cyst seen = 1.1 x 1.1 x 0.8cmcouple of hyperechoic vascular wall calc ifications seen; mid pole cyst = 0.8 x 0.7 x 0.5cm. Left Kidney: mild hydronephrosis seen , and cortical medullary differentiation is maintained bilatera lly Bladder: wnl Bilateral Jets seen: NA as indwelling bladder catheter is present Incidental Findings noted on gallbladder: couple of shadowing gallstones noted in fundus. Small amount of ascites noted near gallbladder, gallbladder is hydropic. IMPRESSION: Indwelling catheter noted within the bladder, the bladder is not completely decompressed, there is le ft-sided hydronephrosis. Hydropic gallbladder, cholelithiasis incidentally noted.
[2021-07-14 12:05] LABS: Glucose,Whole Blood 142 mg/dL (75-99)
[2021-07-14 14:28] LABS: C-ANCA <1:20 Titer (<1:20)
--- NOTE | 2021-07-14 14:50 | P.PN ---
Subjective Progress Note Date: 07/14/21 On 07/13/2021, the patient is being seen in intensive care unit for acute hypoxic respiratory failure/pneumonia/sepsis. The patient is a 69-year-old female who was seen in [facility] for some increased cough and congestion and hypoxemia. The patient subsequently decompensated. The patient went on a BiPAP and at a later stage, the patient had to be intubated and placed on a mechanical ventilator. The patient is known to have CAD, coronary artery bypass, and a previous history of pacemaker insertion. For now, the patient is being treated for a pneumonia and acute hypoxic respiratory failure. The patient had essentially a left lung pneumonia and the chest x-ray was showing extensive consolidation of the left lung for which the patient underwent a bronchoscopy and the bronchioloalveolar lavage of the left lung and there is also consistent with Heidi. The patient is currently covered with accommodation IV Zosyn and IV Eraxis. Meanwhile, the patient had a negative COVID 19 testing, blood culture was negative, and the patient remains sedated on top of for which is running at 20 mcg/kg per minute. The patient is on a combination of pressors and the patient is currently on physiologic dose of vasopressin at 0.03 units per minute and the patient is also on norepinephrine 0.83 mcg/kg per minute. Cardiac rhythm is paced with occasional PVCs. The patient is on a mechanical ventilator on assist control mode at a rate of 24 with a tidal volume of 400 and FiO2 of 50% with a PEEP of 10. The blood gases from today showed a pH of 7.26 with a pCO2 of 36 and pO2 of 146. The chest x- ray is showing some limited improvement in the left lung consolidation. The patient is still febrile and the patient is running a temperature of 100.2 this morning. In terms of blood work, the white cell count is on the rise and currently is up to 25.4 and hemoglobin is at 10.1 with a platelet count of 270. The patient has a acute kidney injury. Creatinine is up to 3.8 with a BUN of 53 and a sodium level of 140. Serum bicarbonate 16. The patient did have also a shock liver yesterday and the AST was 4763 with an ALT of 1213. The echo of the heart showed mild concentric LVH with mild aortic stenosis otherwise negative. Furthermore, the patient is admitted on long-term and to coagulation with warfarin. There is regarding his underlying atrial fibrillation. INR today is at 6.4.the patient has a left IJ triple lumen catheter in place. The patient also has a right radial arterial line. Urine output has been in the order of 20 mL over the past 8 hours. 07/14/2021, seeing the patient for a follow-up. The patient remains intubated on a mechanical ventilator. On today's evaluation, the patient remains on propofol which is running at 5 mcg/kg per minute. The propofol is being gradually weaned off an underlying mental status will be evaluated. Note that the patient has shown some signs of improvement over the past 24 hours. The pressors requirements are less compared to yesterday. This morning, the norepinephrine is running at 0.12 mics of respiratory kilo Per minute and the vasopressin remains in the physiologic dose. At the same time, the patient shows improvement in the shock liver and improvement in the acute kidney injury. In terms of ventilator support, the patient remains on assist control mode of mechanical ventilation at the rate of 24 with a tidal volume of 400 and a rate of 24 with an FiO2 of 40% and a PEEP of 8. The blood gases showed a pH of 7.45 with a pCO2 of 39 and pO2 of 74. The patient is on normal saline and the bicarb infusion has been discontinued by nephrology. Normal saline is running at the rate of 75 mL an hour. The patient was admitted to 23 with hemoglobin of 9.8 and the patient has a platelet count of 207. BUN is down to 61 with a creatinine of 3.98. Urine output is improved over the past 24 hours and overall fluid balance is impossible for 2 L over the past 24 hours. Antibiotic coverage remains a combination of IV Zosyn and IV Diflucan. No new cultures are available. The cultures from the sputum and the bronchioloalveolar lavage came back positive for Heidi albicans. On a separate note, The patient was given no Coumadin and the patient's INR is down to 2.5. The chest x-ray findings are essentially unchanged and the patient continues to have CHF, pacemaker on the left, triple-lumen catheter is in a good location and there is no evidence of any pneumothorax. The patient continues to have a left lower lobe and lingular consolidation. The ultrasound of the abdomen showed hydropic gallbladder, cholelithiasis was incidentally noted. Small amount of ascites was present. Bladder was within normal limits. The 2 feeds are currently on hold as the patient was having increased residuals. Objective - Vital Signs Vital signs: Vital Signs Temp 97.7 F 07/14/21 12:00 Pulse 75 07/14/21 14:30 Resp 24 07/14/21 14:30 BP 82/54 07/14/21 14:30 Pulse Ox 96 07/14/21 14:30 Intake & Output 07/13/21 07/14/21 07/14/21 18:59 06:59 18:59 Intake Total 2004.315 1622.550 539.901 Output Total 980 1425 889 Balance 1024.315 197.550 -349.099 Weight 75 kg 75 kg Intake: IV 1500 1430 220 .9 kvo 130 20 Anidulafungin 200 mg In 200 Sodium Chloride 0.9% 200 ml @ 84 mls/hr IVPB ONCE ONE Rx#:[id number] Bicarb with 3 amps 1000 1200 100 Dextrose 5% in Water 1, 200 000 ml @ 100 mls/hr IV . Q11H [facility] with Sodium Bicarb (1 Meq/ml) 100 ml Rx#:[id number] Piperacillin-Tazobactam 3 100 100 100 .375 gm In Sodium Chloride 0.9% 100 ml @ 25 mls/hr IVPB Q8HR [facility] Rx# :[id number] Intake, IV Titration 364.315 192.550 319.901 Amount Norepinephrine 32 mg In 268.885 93.748 14.432 Sodium Chloride 0.9% 218 ml @ 0.05 MCG/KG/MIN 1. 425 mls/hr IV .Q24H [facility] Rx#:[id number] Sodium Chloride 0.9% 1, 300 000 ml @ 75 mls/hr IV . [id number] [facility] Rx#:[id number] propofoL 1,000 mg In 95.43 98.802 5.469 Empty Bag 1 bag @ 5 MCG/ KG/MIN 1.823 mls/hr IV . Q24H [facility] Rx#:[id number] Tube Feeding 80 0 0 Other 60 Output: Urine 980 1425 889 Other: Voiding Method Indwelling Catheter Indwelling Catheter Indwelling Catheter ABP, PAP, CO, CI - Last Documented Arterial Blood Pressure 102/53 - Exam Currently intubated and mechanically ventilated. There is an orally placed endotracheal tube and NG tube.the patient is sedated and calm and comfortable Head exam was generally normal. There was no scleral icterus or corneal arcus. Mucous membranes were moist. HEENT examination is grossly unremarkable. Neck supple. Full range of motion. No adenopathy thyromegaly or neck vein distention. Cardiovascular examination reveals regular rhythm rate. S1-S2 normal. No S3 or S4. No discernible murmur noted. Heart sounds are very distant. Lungs reveal coarse bilateral rhonchi. No wheezes. No crackles. Abnormal lung sounds are greatler in the left chest. Abdomen soft bowel sounds are heard. No masses or tenderness. Extremities are intact. No cyanosis clubbing or edema. Skin is without rash or lesion. Neurologic examination is brief but nonfocal. - Labs CBC & Chem 7: 07/14/21 03:53 07/14/21 03:53 Labs: Abnormal Lab Results - Last 24 Hours (Table) 07/13/21 07/13/21 07/13/21 Range/Units 17:36 17:50 17:50 WBC (3.8-10.6) k/uL RBC (3.80-5.40) m/uL Hgb (11.4-16.0) gm/dL Hct (34.0-46.0) % Neutrophils # (1.3-7.7) k/uL PT 40.1 H (9.0-12.0) sec INR 4.0 H (<1.2) ABG pO2 (83-108) mmHg ABG HCO3 (21-25) mmol/L ABG Total CO2 (19-24) mmol/L Potassium (3.5-5.1) mmol/L BUN 57 H (7-17) mg/dL Creatinine 4.02 H (0.52-1.04) mg/dL Glucose 136 H (74-99) mg/dL POC Glucose (mg/dL) 147 H (75-99) mg/dL Calcium 7.1 L (8.4-10.2) mg/dL Ionized Calcium Meseret (4.5-5.3) mg/dL Total Bilirubin 2.9 H (0.2-1.3) mg/dL AST 3115 H (14-36) U/L ALT 1882 H (4-34) U/L Total Protein 5.1 L (6.3-8.2) g/dL Albumin 2.3 L (3.5-5.0) g/dL Urine Protein (Negative) Urine Blood (Negative) Urine RBC (0-5) /hpf 07/13/21 07/14/21 07/14/21 Range/Units 23:33 03:53 03:53 WBC 23.6 H (3.8-10.6) k/uL RBC 3.50 L (3.80-5.40) m/uL Hgb 9.8 L (11.4-16.0) gm/dL Hct 30.0 L (34.0-46.0) % Neutrophils # 21.3 H (1.3-7.7) k/uL PT (9.0-12.0) sec INR (<1.2) ABG pO2 (83-108) mmHg ABG HCO3 (21-25) mmol/L ABG Total CO2 (19-24) mmol/L Potassium 3.4 L (3.5-5.1) mmol/L BUN 61 H (7-17) mg/dL Creatinine 3.98 H (0.52-1.04) mg/dL Glucose 139 H (74-99) mg/dL POC Glucose (mg/dL) 140 H (75-99) mg/dL Calcium 7.0 L (8.4-10.2) mg/dL Ionized Calcium Meseret 4.1 L (4.5-5.3) mg/dL Total Bilirubin 3.4 H (0.2-1.3) mg/dL AST 1844 H (14-36) U/L ALT 1606 H (4-34) U/L Total Protein 4.8 L (6.3-8.2) g/dL Albumin 2.2 L (3.5-5.0) g/dL Urine Protein (Negative) Urine Blood (Negative) Urine RBC (0-5) /hpf 07/14/21 07/14/21 07/14/21 Range/Units 03:53 05:28 05:51 WBC (3.8-10.6) k/uL RBC (3.80-5.40) m/uL Hgb (11.4-16.0) gm/dL Hct (34.0-46.0) % Neutrophils # (1.3-7.7) k/uL PT 25.4 H (9.0-12.0) sec INR 2.5 H (<1.2) ABG pO2 74 L (83-108) mmHg ABG HCO3 27 H (21-25) mmol/L ABG Total CO2 28 H (19-24) mmol/L Potassium (3.5-5.1) mmol/L BUN (7-17) mg/dL Creatinine (0.52-1.04) mg/dL Glucose (74-99) mg/dL POC Glucose (mg/dL) 140 H (75-99) mg/dL Calcium (8.4-10.2) mg/dL Ionized Calcium Meseret (4.5-5.3) mg/dL Total Bilirubin (0.2-1.3) mg/dL AST (14-36) U/L ALT (4-34) U/L Total Protein (6.3-8.2) g/dL Albumin (3.5-5.0) g/dL Urine Protein (Negative) Urine Blood (Negative) Urine RBC (0-5) /hpf 07/14/21 07/14/21 Range/Units 10:21 11:54 WBC (3.8-10.6) k/uL RBC (3.80-5.40) m/uL Hgb (11.4-16.0) gm/dL Hct (34.0-46.0) % Neutrophils # (1.3-7.7) k/uL PT (9.0-12.0) sec INR (<1.2) ABG pO2 (83-108) mmHg ABG HCO3 (21-25) mmol/L ABG Total CO2 (19-24) mmol/L Potassium (3.5-5.1) mmol/L BUN (7-17) mg/dL Creatinine (0.52-1.04) mg/dL Glucose (74-99) mg/dL POC Glucose (mg/dL) 142 H (75-99) mg/dL Calcium (8.4-10.2) mg/dL Ionized Calcium Meseret (4.5-5.3) mg/dL Total Bilirubin (0.2-1.3) mg/dL AST (14-36) U/L ALT (4-34) U/L Total Protein (6.3-8.2) g/dL Albumin (3.5-5.0) g/dL Urine Protein Trace H (Negative) Urine Blood Moderate H (Negative) Urine RBC 13 H (0-5) /hpf Microbiology - Last 24 Hours (Table) 07/12/21 21:40 Blood Culture - Preliminary Blood No Growth after 24 hours 07/09/21 16:20 Blood Culture - Preliminary Blood No Growth after 96 hours 07/09/21 16:30 Blood Culture - Preliminary Blood No Growth after 96 hours 07/11/21 12:45 Fungal Culture - Preliminary Bronchial Washings - Left Heidi albicans 07/11/21 12:45 Gram Stain - Final Bronchial Washings - Left Bronchial Washings Culture - Final Heidi albicans Assessment and Plan Plan: Acute hypoxemic respiratory failure secondary to left lung pneumonia,multifocal, status post intubation and mechanical ventilation as well as bronchoscopy on 07/11/2021.the results of the bronchoscopy is indicating Heidi albicans and the patient is currently on a combination of antibiotics including IV Zosyn and IV Eraxis, infectious disease on the case. Septic shock with multisystem organ failure. The patient remains on pressors and the president requirements are less compared to yesterday. The patient continues to be an acute kidney injury. Creatinine is still elevated at 3.9 and the patient has showed improvement the urine output. The patient also had a shock liver and the LFTs are also improving. Acute hypoxemic respiratory failure secondary to pneumonia and COPD. septic shock with signs of system organ failure. The patient is currently on a combination of pressors including vasopressin physiologic dose norepinephrine Acute kidney injury, secondary to above, urine output is improved compared to yesterday Acute shock liver, LFTs are improving History of COPD from previous significant tobacco use. History of hypertension. History of hyperlipidemia. Status post pacemaker implantation. coronary artery disease with previous coronary artery bypass surgery Valvular heart surgery as the patient has a well-healed looks to be a mitral valve ring on the chest x-ray acute leukocytosis, stable Acute Coumadin toxicity, improved and INR therapeutic for now acute metabolic acidosis, a combination of anion and non-anion gap type, recovered and the patient is currently off the bicarb infusion Plan Continue ventilator support and no ventilator changes for today Discontinue bicarb infusion Normal saline at the rate of 75 mL an hour Monitor urine output Monitor electrolytes Wean off pressors Continue with the pressors and a combination of norepinephrine and vasopressin Continue the same antibiotic coverage includes a combination of Eraxis and Zosyn coumadin for today and repeat PT/INR in the morning Monitor LFTs , levels are essentially improving The Sedation and Give the Patient Sedation Holiday and Assess Mental Status Condition is extremely critical and will continue to follow make further recommendations based on his progress. This evaluation was on a more than 35 minutes of this is a critically care evaluation and the patient carries a very poor prognosis based on presence of septic shock with multisystem organ failure. Time with Patient: Greater than 30
[2021-07-14 17:26] LABS: Glucose,Whole Blood 108 mg/dL (75-99)
[2021-07-14] MEDS: SODIUM CHLORIDE 0.9% 150 ML with VASOPRESSIN 60 UNIT IV SCH ×2 (17:34)
[2021-07-14] MEDS ORDERED: POTASSIUM CHLORIDE 20 MEQ in WATER FOR INJECTION 1 100ML.BAG IVPB ONE (18:00)
[2021-07-15 00:08] LABS: Glucose,Whole Blood 99 mg/dL (75-99)
[2021-07-15] MEDS: INSULIN ASPART (NovoLOG) 100 UNIT/ML VIAL SQ SCH ×4 (00:10→17:45)
[2021-07-15] MEDS: METOCLOPRAMIDE 5 MG/ML 2 ML VIAL IVP SCH ×4 (01:05→16:08)
[2021-07-15] MEDS: IPRATROPIUM-ALBUTEROL 3 ML NEB INHALATION SCH ×6 (03:10→23:57)
[2021-07-15 04:53] LABS: Ionized Calcium 4.4 mg/dL (4.5-5.3)
[2021-07-15 04:56] LABS: HCT 31.1 % (34.0-46.0); HGB 10.4 gm/dL (11.4-16.0); MCH 28.9 pg (25.0-35.0); MCHC 33.4 g/dL (31.0-37.0); MCV 86.4 fL (80.0-100.0); Mean Platelet Volume 9.1; Platelet Count 188 k/uL (150-450)
[2021-07-15 04:58] LABS: INR 1.5 (<1.2); Prothrombin Time 15.9 sec (9.0-12.0)
[2021-07-15 05:01] LABS: Albumin 2.2 g/dL (3.5-5.0); Calcium 7.5 mg/dL (8.4-10.2); Magnesium 2.1 mg/dL (1.6-2.3); Total Bilirubin 3.5 mg/dL (0.2-1.3); Total Protein 5.1 g/dL (6.3-8.2)
[2021-07-15 05:49] LABS: Glucose,Whole Blood 84 mg/dL (75-99)
[2021-07-15 06:12] LABS: ABG HCO3 25 mmol/L (21-25); ABG Oxygen Saturation 98.2 % (94-97); ABG PCO2 39 mmHg (35-45); ABG PH 7.42 (7.35-7.45); ABG PO2 124 mmHg (83-108); ABG TCO2 27 mmol/L (19-24)
[2021-07-15 06:17] LABS: Allen Test Performed? No
[2021-07-15 06:18] LABS: Band Neutrophils % 19 %; Metamyelocytes # (M) 0.29 k/uL (0); Metamyelocytes % 1 %; Neutrophils % (M) 71 %; Nucleated Red Blood Cells 1 /100 WBC (0-0); Total Cells Counted 200
[2021-07-15 06:19] LABS: Lymphocytes # (M) 2.33 k/uL (1.0-4.8); Monocytes # (M) 0.58 k/uL (0-1.0); WBC 29.1 k/uL (3.8-10.6)
[2021-07-15 06:20] LABS: Anisocytosis (M) Present
[2021-07-15 06:26] LABS: Polychromasia Present
--- NOTE | 2021-07-15 07:49 | XR ---
EXAMINATION TYPE: XR chest 1V portable DATE OF EXAM: 07/15/2021 COMPARISON: Chest x-ray 07/14/2021 HISTORY: Intubated TECHNIQUE: Single frontal view of the chest is obtained. FINDINGS: Endotracheal tube, NG tube, left jugular central venous catheter are overlying stable and appropriate positions. Pacemaker is unchanged, patient is post median sternotomy and cardiac valve re placement. Airspace disease is present bilaterally, patient is rotated. There is no evident pneumotho rax. Difficult to exclude effusion. Heart is likely enlarged. IMPRESSION: Correlate for pneumonia versus congestive heart failure and pulmonary edema
--- NOTE | 2021-07-15 08:39 | PN ---
PROGRESS NOTE This 71-year-old white female remains on the ventilator, less vasopressors, weaning on the vent settings, producing good output with Lasix. She is showing signs of improvement. Continues on and Zosyn. Cardiovascular S1, S2. She is resting comfortably on the vent. Extremities with no edema. Abdomen is soft. No mass. ASSESSMENT: 1. Community-acquired pneumonia. 2. Congestive heart failure. 3. Generalized weakness. 4. Multiple medical conditions. Continue current treatments. Broad-spectrum antibiotics. Wean ventilator settings as tolerated. Prognosis guarded. MMODL / IJN: [id number] /
[2021-07-15] MEDS ORDERED: FLUCONAZOLE 100 MG TAB PO SCH (09:00)
[2021-07-15] MEDS: CHLORHEXIDINE GLUCONATE 15 ML CUP MUCOUS MEM SCH ×2 (09:13→21:27)
[2021-07-15] MEDS: PIPERACILLIN-TAZOBACTAM 3.375 GM in SODIUM CHLORIDE 0.9% 100 ML IVPB SCH ×2 (09:13→21:27)
--- NOTE | 2021-07-15 09:48 | P.PN ---
Subjective Patient is seen in follow-up for acute kidney injury. Renal function stable. Nonoliguric. Remains on vasopressors. Intubated. Receiving IV fluids. Vital signs stable and vasopressor support. General: Intubated. LUNGS: Breath sounds decreased. HEART: Regular rate and rhythm. ABDOMEN: Soft, no distention. EXTREMITITES: Trace edema. Objective - Vital Signs Vital signs: Vital Signs Temp 97.5 F L 07/15/21 04:00 Pulse 72 07/15/21 07:33 Resp 24 07/15/21 07:00 BP 107/64 07/15/21 07:00 Pulse Ox 98 07/15/21 07:00 Intake & Output 07/14/21 07/15/21 07/15/21 18:59 06:59 18:59 Intake Total 383.623 0055 95 Output Total 1414 1175 75 Balance -486.868 -35 20 Weight 75 kg 75.7 kg Intake: IV 220 140 20 .9 kvo 20 140 20 Bicarb with 3 amps 100 Piperacillin-Tazobactam 3 100 .375 gm In Sodium Chloride 0.9% 100 ml @ 25 mls/hr IVPB Q8HR [facility] Rx# :[id number] Intake, IV Titration 051.961 0473 75 Amount Norepinephrine 32 mg In 26.663 Sodium Chloride 0.9% 218 ml @ 0.05 MCG/KG/MIN 1. 425 mls/hr IV .Q24H [facility] Rx#:[id number] Piperacillin-Tazobactam 3 100 .375 gm In Sodium Chloride 0.9% 100 ml @ 25 mls/hr IVPB Q12HR [facility] Rx #:[id number] Sodium Chloride 0.9% 1, 675 900 75 000 ml @ 75 mls/hr IV . [id number] [facility] Rx#:[id number] propofoL 1,000 mg In 5.469 Empty Bag 1 bag @ 5 MCG/ KG/MIN 1.823 mls/hr IV . Q24H [facility] Rx#:[id number] Tube Feeding 0 0 Output: Urine 1414 1175 75 Other: Voiding Method Indwelling Catheter Indwelling Catheter ABP, PAP, CO, CI - Last Documented Arterial Blood Pressure 118/56 - Labs CBC & Chem 7: 07/15/21 04:30 07/15/21 03:45 Labs: Abnormal Lab Results - Last 24 Hours (Table) 07/14/21 07/14/21 07/14/21 Range/Units 10:21 11:54 17:23 WBC (3.8-10.6) k/uL RBC (3.80-5.40) m/uL Hgb (11.4-16.0) gm/dL Hct (34.0-46.0) % Neutrophils # (Manual) (1.3-7.7) k/uL Metamyelocytes # (Man) (0) k/uL Nucleated RBCs (0-0) /100 WBC PT (9.0-12.0) sec INR (<1.2) ABG pO2 (83-108) mmHg ABG Total CO2 (19-24) mmol/L ABG O2 Saturation (94-97) % BUN (7-17) mg/dL Creatinine (0.52-1.04) mg/dL POC Glucose (mg/dL) 142 H 108 H (75-99) mg/dL Calcium (8.4-10.2) mg/dL Ionized Calcium Meseret (4.5-5.3) mg/dL Total Bilirubin (0.2-1.3) mg/dL AST (14-36) U/L ALT (4-34) U/L Total Protein (6.3-8.2) g/dL Albumin (3.5-5.0) g/dL Urine Protein Trace H (Negative) Urine Blood Moderate H (Negative) Urine RBC 13 H (0-5) /hpf 07/15/21 07/15/21 07/15/21 Range/Units 03:45 04:30 04:45 WBC 29.1 H (3.8-10.6) k/uL RBC 3.60 L (3.80-5.40) m/uL Hgb 10.4 L (11.4-16.0) gm/dL Hct 31.1 L (34.0-46.0) % Neutrophils # (Manual) 26.10 H (1.3-7.7) k/uL Metamyelocytes # (Man) 0.29 H (0) k/uL Nucleated RBCs 1 H (0-0) /100 WBC PT 15.9 H (9.0-12.0) sec INR 1.5 H (<1.2) ABG pO2 (83-108) mmHg ABG Total CO2 (19-24) mmol/L ABG O2 Saturation (94-97) % BUN 66 H (7-17) mg/dL Creatinine 3.92 H (0.52-1.04) mg/dL POC Glucose (mg/dL) (75-99) mg/dL Calcium 7.5 L (8.4-10.2) mg/dL Ionized Calcium Meseret 4.4 L (4.5-5.3) mg/dL Total Bilirubin 3.5 H (0.2-1.3) mg/dL AST 1022 H (14-36) U/L ALT 1239 H (4-34) U/L Total Protein 5.1 L (6.3-8.2) g/dL Albumin 2.2 L (3.5-5.0) g/dL Urine Protein (Negative) Urine Blood (Negative) Urine RBC (0-5) /hpf // Range/Units 05:22 WBC (3.8-10.6) k/uL RBC (3.80-5.40) m/uL Hgb (11.4-16.0) gm/dL Hct (34.0-46.0) % Neutrophils # (Manual) (1.3-7.7) k/uL Metamyelocytes # (Man) (0) k/uL Nucleated RBCs (0-0) /100 WBC PT (9.0-12.0) sec INR (<1.2) ABG pO2 124 H (83-108) mmHg ABG Total CO2 27 H (19-24) mmol/L ABG O2 Saturation 98.2 H (94-97) % BUN (7-17) mg/dL Creatinine (0.52-1.04) mg/dL POC Glucose (mg/dL) (75-99) mg/dL Calcium (8.4-10.2) mg/dL Ionized Calcium Meseret (4.5-5.3) mg/dL Total Bilirubin (0.2-1.3) mg/dL AST (14-36) U/L ALT (4-34) U/L Total Protein (6.3-8.2) g/dL Albumin (3.5-5.0) g/dL Urine Protein (Negative) Urine Blood (Negative) Urine RBC (0-5) /hpf Microbiology - Last 24 Hours (Table) 07/12/21 21:40 Blood Culture - Preliminary Blood No Growth after 48 hours 07/09/21 16:20 Blood Culture - Preliminary Blood No Growth after 120 hours 07/09/21 16:30 Blood Culture - Preliminary Blood No Growth after 120 hours Assessment and Plan Plan: Assessment: 1. Acute kidney injury secondary to ATN secondary to septic shock. Creatinine was 1.78 at admission and is stable at 3.92 today. Nonoliguric. Unknown baseline renal function. Noted to be KELLY positive. Hepatitis and ANCA negative. 2. Septic shock secondary to pneumonia. Status post bronchoscopy. On vasopressor support and antibiotics. 3. Metabolic acidosis secondary to acute kidney injury and lactic acidosis. Resolved. 4. Acute hypoxic respiratory failure secondary to pneumonia. Bronchial washings positive for Heidi. 5. Shock liver. AST and ALT trending down. 6. Hypokalemia from diuresis. Replaced. Better. 7. Hypomagnesemia from diuresis. Replaced. Better. 8. Left-sided hydronephrosis. Urology consulted. Plan: Maintain normal saline at 75 mL an hour. Status post 80 mg IV Lasix given 07/13/2021. Wean FiO2 and vasopressors. Avoid nephrotoxins. Continue to monitor renal function and urine output. Follow-up pending serologies.
--- NOTE | 2021-07-15 11:10 | CDI ---
Documentation Clarification Form Date: 07/15/2021 10:51:25 AM From: Maisha Kenny CCS, CCDS Admit Date: 07/09/2021 03:52:00 PM Patient Name: Argelia Nicholson Visit Number: [id number] Discharge Date: ATTENTION: The Clinical Documentation Specialists (CDI) and [facility] Coding Staff appreciate your assistance in clarifying documentation. Please respond to the clarification below the line at the bottom and electronically sign. The CDI & [facility] [employer] Coding staff will review the response and follow-up if needed. Please note: Queries are made part of the Legal Health Record. If you have any questions, please contact the author of this message via ITS. Dr. George Redman: Heart Failure is documented in the 07/09 ED Note, the 07/09 History & Physical and in subsequent Progress Notes. Per the 07/10 Cardiology Consult, the following is documented: Acute on Chronic Congestive Heart Failure, type unknown, echo pending, Coronary Artery Disease with previous CABG. Additional information regarding the Type & Acuity of CHF is requested. History/Risk Factors per the 07/09 ED Note: COPD. Clinical Indicators: Presented to the ED on 07/09 via EMS as a transfer from [facility] with Pneumonia. Recent Pacemaker change at [facility], discharged home on antibiotics. Presented to [facility] with lethargy & confusion, normally on 2L O2. Was hypoxic on arrival. Transferred to [facility] for requiring high level of Oxygen. Admit with Recurrent Pneumonia, Hypoxia and Heart Failure 07/09 VS: T 98.3, P 71, R 20 (sob, labored, accessory use, shallow, irregular); BP 88/42, PO 98 5Lnc, BMI: 29.6 07/09 LAB: RBC 3.48, Hgb 9.8, Hct 31.4; Chloride 113, CO2 19, BUN 27, Creatinine 1.78, Glucose 106, Calcium 8.3, BNP 5500, total Protein 6.2, Albumin 3.1 07/09 CXR: Probable pulmonary atelectasis. Extensive pulmonary interstitial infiltrate on the right. Probably pulmonary fibrosis. 07/09 CT Chest: Prominent bilateral pulmonary abnormalities for which follow-up CT in 6 weeks is recommended to further characterize, unless indicated sooner a clinical basis. 07/10 ECHO: Mild concentric left ventricle hypertrophy with preserved LV function, EF 60-65% and apical motion of the septum probably related to previous open-heart surgery/.Status post mitral valve replacement. Mild mitral regurgitation. Mild aortic stenosis with sclerosis of the valve leaflets. Mild right ventricular dilatation and mild pulmonary hypertension. Mild tricuspid regurgitation Treatment 07/09: O2 6-7Lnc, INH Duoneb 3 ml x1 07/10: IV Azithromycin 250 mls @ 250 mls/hr Daily, po Lasix 40 mg Daily, IV Lasix 40 mg x1 In your professional opinion, can you please clarify the Acuity & type of CHF if known? [ ] Acute Diastolic Heart Failure [ ] Chronic Diastolic Heart Failure [ ] Acute on Chronic Diastolic Heart Failure [ ] Other, please specify [ ] Unable to determine (Template Last Revised: April 2020) 07/28 Query response documented in an addendum to the Cardiology Consult on 07/09: 07/28, Dr redman: Acute on chronic CHF with preserved EF 60-65%. Per Cardiology MARINE TECHNICIAN: Damaris Vyas. (CDS: KAIDEN) ELIZABETH
[2021-07-15 11:56] LABS: Glucose,Whole Blood 120 mg/dL (75-99)
--- NOTE | 2021-07-15 12:16 | P.GSCN ---
History of Present Illness Consult date: 07/15/21 Reason for Consult: Left Hydronephrosis History of present illness: This is a 71 yo female admitted to the hospital with sepsis secondary to p neumonia. She underwent a renal ultrasound that showed evidence of mild left- sided hydronephrosis. Creatinine on presentation was 1.78, up to 3.92 during this admission. Patient is making adequate urine output. Patient's currently intubated and sedated. No previous imaging of the abdomen and pelvis was available to review. No known history of kidney stones or any urological issues at baseline. Review of Systems ROS unobtainable: due to endotracheal tube Past Medical History Past Medical History: COPD History of Any Multi-Drug Resistant Organisms: None Reported Past Surgical History: Cardiac Valve Replacement, Heart Catheterization, Pacemaker Past Anesthesia/Blood Transfusion Reactions: No Reported Reaction Type of Cardiac Device: Permanent Pacemaker, AICD Device Placement Date:: may 2021 Past Psychological History: No Psychological Hx Reported Smoking Status: Former smoker - Past Family History Mother Family Medical History: Myocardial Infarction ([place]) Father Family Medical History: Myocardial Infarction ([place]) Medications and Allergies Home Medications Medication Instructions Recorded Confirmed Type ALPRAZolam [Xanax] 1 mg PO TID PRN 07/09/21 07/09/21 History Beets Supplement 500mg 500 mg PO DAILY 07/09/21 07/09/21 History Cholecalciferol [Vitamin D3 (25 25 mcg PO DAILY 07/09/21 07/09/21 History Mcg = 1000 Iu)] Collagen + Biotin 1 cap PO DAILY 07/09/21 07/09/21 History Cyanocobalamin [Vitamin B-12] 500 mcg PO DAILY 07/09/21 07/09/21 History Ferrous Gluconate 324 mg PO DAILY 07/09/21 07/09/21 History Furosemide [Lasix] 40 mg PO DAILY 07/09/21 07/09/21 History HYDROcodone/APAP 10-325MG [[place] 1 tab PO QID PRN 07/09/21 07/09/21 History 10-325] Hydroxychloroquine Sulfate 200 mg PO DAILY 07/09/21 07/09/21 History [Plaquenil] Losartan [Cozaar] 50 mg PO DAILY 07/09/21 07/09/21 History Simvastatin [Zocor] 20 mg PO DAILY 07/09/21 07/09/21 History Spironolactone [Aldactone] 25 mg PO DAILY 07/09/21 07/09/21 History Torsemide [Demadex] 20 mg PO DAILY 07/09/21 07/09/21 History Warfarin [Coumadin] 2 mg PO DAILY 07/09/21 07/09/21 History Zolpidem [Ambien] 10 mg PO HS 07/09/21 07/09/21 History guaiFENesin-Coden 100-10MG/5ML 5 ml PO TID PRN 07/09/21 07/09/21 History [Robitussin AC] minoxidiL 1.25 mg PO DAILY 07/09/21 07/09/21 History Allergies Allergy/AdvReac Type Severity Reaction Status Date / Time SURGICAL TAPE Allergy BLISTERS Uncoded 07/09/21 16:05 Surgical - Exam Vital Signs Temp Pulse Resp BP Pulse Ox 98.3 F 71 20 88/42 98 07/09/21 12:13 07/09/21 12:13 07/09/21 12:13 07/09/21 12:13 07/09/21 12:13 - General no distress, no pain - Respiratory Intubated - Abdomen Abdomen: soft, non tender, no distended Results - Labs 07/15/21 04:30 07/15/21 03:45 Abnormal Lab Results - Last 24 Hours (Table) 07/14/21 07/15/21 07/15/21 Range/Units 17:23 03:45 04:30 WBC 29.1 H (3.8-10.6) k/uL RBC 3.60 L (3.80-5.40) m/uL Hgb 10.4 L (11.4-16.0) gm/dL Hct 31.1 L (34.0-46.0) % Neutrophils # (Manual) 26.10 H (1.3-7.7) k/uL Metamyelocytes # (Man) 0.29 H (0) k/uL Nucleated RBCs 1 H (0-0) /100 WBC PT (9.0-12.0) sec INR (<1.2) ABG pO2 (83-108) mmHg ABG Total CO2 (19-24) mmol/L ABG O2 Saturation (94-97) % BUN 66 H (7-17) mg/dL Creatinine 3.92 H (0.52-1.04) mg/dL POC Glucose (mg/dL) 108 H (75-99) mg/dL Calcium 7.5 L (8.4-10.2) mg/dL Ionized Calcium Meseret 4.4 L (4.5-5.3) mg/dL Total Bilirubin 3.5 H (0.2-1.3) mg/dL AST 1022 H (14-36) U/L ALT 1239 H (4-34) U/L Total Protein 5.1 L (6.3-8.2) g/dL Albumin 2.2 L (3.5-5.0) g/dL 07/15/21 07/15/21 07/15/21 Range/Units 04:45 05:22 11:53 WBC (3.8-10.6) k/uL RBC (3.80-5.40) m/uL Hgb (11.4-16.0) gm/dL Hct (34.0-46.0) % Neutrophils # (Manual) (1.3-7.7) k/uL Metamyelocytes # (Man) (0) k/uL Nucleated RBCs (0-0) /100 WBC PT 15.9 H (9.0-12.0) sec INR 1.5 H (<1.2) ABG pO2 124 H (83-108) mmHg ABG Total CO2 27 H (19-24) mmol/L ABG O2 Saturation 98.2 H (94-97) % BUN (7-17) mg/dL Creatinine (0.52-1.04) mg/dL POC Glucose (mg/dL) 120 H (75-99) mg/dL Calcium (8.4-10.2) mg/dL Ionized Calcium Meseret (4.5-5.3) mg/dL Total Bilirubin (0.2-1.3) mg/dL AST (14-36) U/L ALT (4-34) U/L Total Protein (6.3-8.2) g/dL Albumin (3.5-5.0) g/dL Microbiology - Last 24 Hours (Table) 07/12/21 21:40 Blood Culture - Preliminary Blood No Growth after 48 hours 07/09/21 16:20 Blood Culture - Preliminary Blood No Growth after 120 hours 07/09/21 16:30 Blood Culture - Preliminary Blood No Growth after 120 hours Diabetes panel 07/14/21 07/15/21 Range/Units 16:00 03:45 Sodium 141 (137-145) mmol/L Potassium 3.7 4.0 (3.5-5.1) mmol/L Chloride 105 (98-107) mmol/L Carbon Dioxide 23 (22-30) mmol/L BUN 66 H (7-17) mg/dL Creatinine 3.92 H (0.52-1.04) mg/dL Glucose 99 (74-99) mg/dL Calcium 7.5 L (8.4-10.2) mg/dL AST 1022 H (14-36) U/L ALT 1239 H (4-34) U/L Alkaline Phosphatase 104 (38-126) U/L Total Protein 5.1 L (6.3-8.2) g/dL Albumin 2.2 L (3.5-5.0) g/dL Calcium panel 07/15/21 Range/Units 03:45 Calcium 7.5 L (8.4-10.2) mg/dL Ionized Calcium Meseret 4.4 L (4.5-5.3) mg/dL Albumin 2.2 L (3.5-5.0) g/dL Pituitary panel 07/14/21 07/15/21 Range/Units 16:00 03:45 Sodium 141 (137-145) mmol/L Potassium 3.7 4.0 (3.5-5.1) mmol/L Chloride 105 (98-107) mmol/L Carbon Dioxide 23 (22-30) mmol/L BUN 66 H (7-17) mg/dL Creatinine 3.92 H (0.52-1.04) mg/dL Glucose 99 (74-99) mg/dL Calcium 7.5 L (8.4-10.2) mg/dL Adrenal panel 07/14/21 07/15/21 Range/Units 16:00 03:45 Sodium 141 (137-145) mmol/L Potassium 3.7 4.0 (3.5-5.1) mmol/L Chloride 105 (98-107) mmol/L Carbon Dioxide 23 (22-30) mmol/L BUN 66 H (7-17) mg/dL Creatinine 3.92 H (0.52-1.04) mg/dL Glucose 99 (74-99) mg/dL Calcium 7.5 L (8.4-10.2) mg/dL Total Bilirubin 3.5 H (0.2-1.3) mg/dL AST 1022 H (14-36) U/L ALT 1239 H (4-34) U/L Alkaline Phosphatase 104 (38-126) U/L Total Protein 5.1 L (6.3-8.2) g/dL Albumin 2.2 L (3.5-5.0) g/dL Assessment and Plan Assessment: 71-year-old female admitted to the hospital with sepsis secondary to pneumonia, and acute kidney injury. Creatinine is 3.92 on admission was 1.78. Baseline is unknown. Ultrasound showed evidence of left-sided hydronephrosis -We'll obtain a CT abdomen and pelvis to evaluate the hydronephrosis further
--- NOTE | 2021-07-15 13:08 | CT ---
EXAMINATION TYPE: CT brain wo con DATE OF EXAM: 07/15/2021 HISTORY: Altered mental status. CT DLP: 1103 mGycm. Automated Exposure Control for Dose Reduction was Utilized. TECHNIQUE: CT scan of the head is performed without contrast. COMPARISON: None. FINDINGS: There is a 5 mm round hyperdense focus right parietal lobe axial image 35 with suggestion of surrounding hypodensity. No midline shift. Mild ventricular and sulcal prominence. Mild low-atten uation in the periventricular white matter. Soft tissue density left extraocular canal favors cerum en. [id number] mucosal thickening anterior ethmoid sinuses bilaterally. Globes are intact bilat erally. IMPRESSION: As above. Left parietal area could reflect focal acute hemorrhagic infarct, I see more haney spicious for hemorrhagic metastatic disease given the surrounding vasogenic edema. Correlate clinical ly. Correlation with old outside CT and/or MRI would be beneficial.
--- NOTE | 2021-07-15 13:50 | CT ---
EXAMINATION TYPE: CT renal stones wo con DATE OF EXAM: 07/15/2021 HISTORY: Hydronephrosis. CT DLP: 835.6 mGycm. Automated Exposure Control for Dose Reduction was Utilized. TECHNIQUE: CT scan of the abdomen and pelvis is performed without oral or IV contrast. COMPARISON: Renal ultrasound from yesterday FINDINGS: Within the limitations of a non-contrast study, the following observations are made. LUNG BASES: Overlying sternal wires are partially imaged. Mild cardiomegaly with dense calcifications at level of the mitral valve. Small to tiny bilateral pleural effusions with associated compressive atelectasis on the right. More prominent left basilar compressive atelectasis and/or limited consolid ation. LIVER/GB: Distended gallbladder with dilated margins correlates with ultrasound from one day earlier. Gallstones on ultrasound less well seen on CT. No surrounding fat stranding. No biliary dilatation. PANCREAS: No significant abnormality is seen. SPLEEN: No significant abnormality is seen. ADRENALS: No significant abnormality is seen. KIDNEYS: Mild to moderate left-sided pyelocaliectasis corresponds with recent ultrasound. No hydroure ter. Consider UPJ stricture or stenosis. No right-sided hydronephrosis. No renal calculi bilaterally. Siegel catheter is poorly distended bladder with nondependent air BOWEL: No suspicious small or large bowel dilatation. Nasogastric tube terminates in the distal stoma ch. GENITAL ORGANS: Uterus not seen suspected surgically absent. Small amount of free fluid in the pelvis . LYMPH NODES: No greater than 1cm abdominal or pelvic lymph nodes are appreciated. OSSEOUS STRUCTURES: Moderate disc space narrowing with vacuum disc phenomenon L5-S1 level. Mild to mo derate disc space narrowing and spurring L3-L4 and L4-L5 levels. Slight underlying scoliotic curvatur e. OTHER: Moderate diffuse subcutaneous edema begins in the mid to lower abdomen becoming more prominent over the pelvis extending into the bilateral legs. IMPRESSION: Confirmation of mild to moderate left-sided pyelocaliectasis without hydroureter suggesti ng a UPJ stricture or stenosis. No renal calculi noted bilaterally.
--- NOTE | 2021-07-15 13:59 | P.PN ---
Subjective Progress Note Date: 07/15/21 On 07/13/2021, the patient is being seen in intensive care unit for acute hypoxic respiratory failure/pneumonia/sepsis. The patient is a 69-year-old female who was seen in [facility] for some increased cough and congestion and hypoxemia. The patient subsequently decompensated. The patient went on a BiPAP and at a later stage, the patient had to be intubated and placed on a mechanical ventilator. The patient is known to have CAD, coronary artery bypass, and a previous history of pacemaker insertion. For now, the patient is being treated for a pneumonia and acute hypoxic respiratory failure. The patient had essentially a left lung pneumonia and the chest x-ray was showing extensive consolidation of the left lung for which the patient underwent a bronchoscopy and the bronchioloalveolar lavage of the left lung and there is also consistent with Heidi. The patient is currently covered with accommodation IV Zosyn and IV Eraxis. Meanwhile, the patient had a negative COVID 19 testing, blood culture was negative, and the patient remains sedated on top of for which is running at 20 mcg/kg per minute. The patient is on a combination of pressors and the patient is currently on physiologic dose of vasopressin at 0.03 units per minute and the patient is also on norepinephrine 0.83 mcg/kg per minute. Cardiac rhythm is paced with occasional PVCs. The patient is on a mechanical ventilator on assist control mode at a rate of 24 with a tidal volume of 400 and FiO2 of 50% with a PEEP of 10. The blood gases from today showed a pH of 7.26 with a pCO2 of 36 and pO2 of 146. The chest x- ray is showing some limited improvement in the left lung consolidation. The patient is still febrile and the patient is running a temperature of 100.2 this morning. In terms of blood work, the white cell count is on the rise and currently is up to 25.4 and hemoglobin is at 10.1 with a platelet count of 270. The patient has a acute kidney injury. Creatinine is up to 3.8 with a BUN of 53 and a sodium level of 140. Serum bicarbonate 16. The patient did have also a shock liver yesterday and the AST was 4763 with an ALT of 1213. The echo of the heart showed mild concentric LVH with mild aortic stenosis otherwise negative. Furthermore, the patient is admitted on long-term and to coagulation with warfarin. There is regarding his underlying atrial fibrillation. INR today is at 6.4.the patient has a left IJ triple lumen catheter in place. The patient also has a right radial arterial line. Urine output has been in the order of 20 mL over the past 8 hours. 07/14/2021, seeing the patient for a follow-up. The patient remains intubated on a mechanical ventilator. On today's evaluation, the patient remains on propofol which is running at 5 mcg/kg per minute. The propofol is being gradually weaned off an underlying mental status will be evaluated. Note that the patient has shown some signs of improvement over the past 24 hours. The pressors requirements are less compared to yesterday. This morning, the norepinephrine is running at 0.12 mics of respiratory kilo Per minute and the vasopressin remains in the physiologic dose. At the same time, the patient shows improvement in the shock liver and improvement in the acute kidney injury. In terms of ventilator support, the patient remains on assist control mode of mechanical ventilation at the rate of 24 with a tidal volume of 400 and a rate of 24 with an FiO2 of 40% and a PEEP of 8. The blood gases showed a pH of 7.45 with a pCO2 of 39 and pO2 of 74. The patient is on normal saline and the bicarb infusion has been discontinued by nephrology. Normal saline is running at the rate of 75 mL an hour. The patient was admitted to 23 with hemoglobin of 9.8 and the patient has a platelet count of 207. BUN is down to 61 with a creatinine of 3.98. Urine output is improved over the past 24 hours and overall fluid balance is impossible for 2 L over the past 24 hours. Antibiotic coverage remains a combination of IV Zosyn and IV Diflucan. No new cultures are available. The cultures from the sputum and the bronchioloalveolar lavage came back positive for Heidi albicans. On a separate note, The patient was given no Coumadin and the patient's INR is down to 2.5. The chest x-ray findings are essentially unchanged and the patient continues to have CHF, pacemaker on the left, triple-lumen catheter is in a good location and there is no evidence of any pneumothorax. The patient continues to have a left lower lobe and lingular consolidation. The ultrasound of the abdomen showed hydropic gallbladder, cholelithiasis was incidentally noted. Small amount of ascites was present. Bladder was within normal limits. The 2 feeds are currently on hold as the patient was having increased residuals. 07/15/2021, patient is being seen for a follow-up. This morning, the patient is off propofol and the patient has been off propofol since 10:00 yesterday morning. She is very sluggish. They're responsive to any painful stimulation. No seizure activity. At times she blinks and at times she withdraws to deep painful stimulation. As such, a CAT scan of the brain will be needed. at the same time, the patient remains on mechanical ventilator and today the patient is an assist-control mode rate of 24, tidal volume of 400, FiO2 of 40% with a PEEP of 8. The blood gas showed a pH of 7.42 with a pCO2 of 39 and pO2 of 124. The chest x-ray from today shows a pacemaker on the left. The patient has airspace disease present bilaterally. The patient has ongoing bilateral pulmonary infiltrates, interstitial edema/pulmonary edema. The patient remains on IV fluids with normal saline at the rate of 50 mL an hour. The patient is still on vasopressin physiologic dose and the patient is also on norepinephrine at 0.04 microvascular kilogram per minute. The LFTs continued to improve as the patient had developed shock liver. Therefore she continues to be impaired with a cath in of 3.92. Overall fluid balance has been +1.2 L over the past 24 hours. The patient remains in atrial fibrillation. INR is down to 1.2. Rest of the blood work shows a sodium level of 141, BUN of 66 with a creatinine of 3.9. The white cell count is 29 with a hemoglobin of 10.4. Meanwhile, the patient remains on Diflucan and IV Zosyn per IDs recommendation. Objective - Vital Signs Vital signs: Vital Signs Temp 97.7 F 07/15/21 08:00 Pulse 73 07/15/21 11:00 Resp 24 07/15/21 11:00 BP 106/60 07/15/21 09:45 Pulse Ox 98 07/15/21 11:00 Intake & Output 07/14/21 07/15/21 07/15/21 18:59 06:59 18:59 Intake Total 473.344 7532 435 Output Total 1414 1175 289 Balance -486.868 -35 146 Weight 75 kg 75.7 kg Intake: IV 220 140 60 .9 kvo 20 140 60 Bicarb with 3 amps 100 Piperacillin-Tazobactam 3 100 .375 gm In Sodium Chloride 0.9% 100 ml @ 25 mls/hr IVPB Q8HR [facility] Rx# :[id number] Intake, IV Titration 820.138 2318 375 Amount Norepinephrine 32 mg In 26.663 Sodium Chloride 0.9% 218 ml @ 0.05 MCG/KG/MIN 1. 425 mls/hr IV .Q24H [facility] Rx#:[id number] Piperacillin-Tazobactam 3 100 .375 gm In Sodium Chloride 0.9% 100 ml @ 25 mls/hr IVPB Q12HR [facility] Rx #:[id number] Sodium Chloride 0.9% 1, 675 900 375 000 ml @ 75 mls/hr IV . [id number] [facility] Rx#:[id number] propofoL 1,000 mg In 5.469 Empty Bag 1 bag @ 5 MCG/ KG/MIN 1.823 mls/hr IV . Q24H [facility] Rx#:[id number] Tube Feeding 0 0 0 Output: Urine 1414 1175 289 Other: Voiding Method Indwelling Catheter Indwelling Catheter Indwelling Catheter ABP, PAP, CO, CI - Last Documented Arterial Blood Pressure 114/52 - Exam Currently intubated and mechanically ventilated. There is an orally placed endotracheal tube and NG tube.the patient is sedated and calm and comfortable, the patient is unresponsive while being off sedation for the past 24 hours. Head exam was generally normal. There was no scleral icterus or corneal arcus. Mucous membranes were moist. HEENT examination is grossly unremarkable. Neck supple. Full range of motion. No adenopathy thyromegaly or neck vein distention. Cardiovascular examination reveals regular rhythm rate. S1-S2 normal. No S3 or S4. No discernible murmur noted. Heart sounds are very distant. Lungs reveal coarse bilateral rhonchi. No wheezes. No crackles. Abnormal lung sounds are greatler in the left chest. Abdomen soft bowel sounds are heard. No masses or tenderness. Extremities are intact. No cyanosis clubbing there is a buildup of edema in all 4 extremities Examination of the skin revealed no evidence of significant rashes, suspicious appearing nevi or other concerning lesions. Neurologic examination is showing 3 mm pupil was sluggish and reactive to light no nystagmus. No clonus. No significant response to withdrawal to painful simulation. Reflexes are equal and symmetrical in all 4 extremities. No neck stiffness. No facial asymmetry. There is positive cough and a gag although weak. - Labs CBC & Chem 7: 07/15/21 04:30 07/15/21 03:45 Labs: Abnormal Lab Results - Last 24 Hours (Table) 07/14/21 07/15/21 07/15/21 Range/Units 17:23 03:45 04:30 WBC 29.1 H (3.8-10.6) k/uL RBC 3.60 L (3.80-5.40) m/uL Hgb 10.4 L (11.4-16.0) gm/dL Hct 31.1 L (34.0-46.0) % Neutrophils # (Manual) 26.10 H (1.3-7.7) k/uL Metamyelocytes # (Man) 0.29 H (0) k/uL Nucleated RBCs 1 H (0-0) /100 WBC PT (9.0-12.0) sec INR (<1.2) ABG pO2 (83-108) mmHg ABG Total CO2 (19-24) mmol/L ABG O2 Saturation (94-97) % BUN 66 H (7-17) mg/dL Creatinine 3.92 H (0.52-1.04) mg/dL POC Glucose (mg/dL) 108 H (75-99) mg/dL Calcium 7.5 L (8.4-10.2) mg/dL Ionized Calcium Meseret 4.4 L (4.5-5.3) mg/dL Total Bilirubin 3.5 H (0.2-1.3) mg/dL AST 1022 H (14-36) U/L ALT 1239 H (4-34) U/L Total Protein 5.1 L (6.3-8.2) g/dL Albumin 2.2 L (3.5-5.0) g/dL 07/15/21 07/15/21 07/15/21 Range/Units 04:45 05:22 11:53 WBC (3.8-10.6) k/uL RBC (3.80-5.40) m/uL Hgb (11.4-16.0) gm/dL Hct (34.0-46.0) % Neutrophils # (Manual) (1.3-7.7) k/uL Metamyelocytes # (Man) (0) k/uL Nucleated RBCs (0-0) /100 WBC PT 15.9 H (9.0-12.0) sec INR 1.5 H (<1.2) ABG pO2 124 H (83-108) mmHg ABG Total CO2 27 H (19-24) mmol/L ABG O2 Saturation 98.2 H (94-97) % BUN (7-17) mg/dL Creatinine (0.52-1.04) mg/dL POC Glucose (mg/dL) 120 H (75-99) mg/dL Calcium (8.4-10.2) mg/dL Ionized Calcium Meseret (4.5-5.3) mg/dL Total Bilirubin (0.2-1.3) mg/dL AST (14-36) U/L ALT (4-34) U/L Total Protein (6.3-8.2) g/dL Albumin (3.5-5.0) g/dL Microbiology - Last 24 Hours (Table) 07/12/21 21:40 Blood Culture - Preliminary Blood No Growth after 48 hours 07/09/21 16:20 Blood Culture - Preliminary Blood No Growth after 120 hours 07/09/21 16:30 Blood Culture - Preliminary Blood No Growth after 120 hours Assessment and Plan Plan: Acute hypoxemic respiratory failure secondary to left lung pneumonia,multifocal, status post intubation and mechanical ventilation as well as bronchoscopy on 07/11/2021.the results of the bronchoscopy is indicating Heidi albicans and the patient is currently on a combination of antibiotics including IV Zosyn and IV Diflucan, infectious disease on the case.. All orifices status is unchanged. Chest is a finding that unchanged and the patient has diffuse but the pulmonary infiltrates. Septic shock with multisystem organ failure. The patient remains on pressors / pressor requirements are less. Altered mentation and the patient remains unresponsive despite being off sedation for the past 24 hours Acute hypoxemic respiratory failure secondary to pneumonia and COPD. septic shock with signs of system organ failure. The patient is currently on a combination of pressors including vasopressin physiologic dose norepinephrine, and the norepinephrine dose less compared to yesterday as the patient's blood pressures becoming more stabilized Acute kidney injury, secondary to above, urine output is improved compared to yesterday, the patient remains in a positive fluid balance. There is suggestion for hydronephrosis and a CAT scan of the abdomen and pelvis will be done to evaluate renal status and renal system. Acute shock liver, LFTs are improving History of COPD from previous significant tobacco use. History of hypertension. History of hyperlipidemia. Status post pacemaker implantation. coronary artery disease with previous coronary artery bypass surgery Valvular heart surgery as the patient has a well-healed looks to be a mitral valve ring on the chest x-ray acute leukocytosis, stable Acute Coumadin toxicity, improved and INR sub- therapeutic acute metabolic acidosis, a combination of anion and non-anion gap type, recovered and the patient is currently off the bicarb infusion Plan Continue ventilator support Normal saline at the rate of 75 mL an hour CAT scan of the brain, no contrast CAT scan of the abdomen and pelvis to evaluate renal status/hydronephrosis, no contrast Monitor urine output Monitor electrolytes Wean off pressors Continue with the pressors and a combination of norepinephrine and vasopressin Continue the same antibiotic coverage includes a combination of Diflucan and Zosyn Hold Coumadin until the CAT scan of the brain is available Monitor LFTs , levels are essentially improving The Sedation and Give the Patient Sedation Holiday and Assess Mental Status Condition is extremely critical and will continue to follow make further recommendations based on his progress. This evaluation was on a more than 35 minutes of this is a critically care evaluation and the patient carries a very poor prognosis based on presence of septic shock with multisystem organ failure. Time with Patient: Greater than 30
[2021-07-15] MEDS ORDERED: LORazepam 2 MG/ML INJ ONE (15:34)
[2021-07-15] MEDS ORDERED: LORazepam 2 MG/ML INJ IV STA (15:38)
[2021-07-15] MEDS ORDERED: levETIRAcetam IV 750 MG in SODIUM CHLORIDE 0.9% 100 ML IVPB ONE (16:00)
[2021-07-15] MEDS: SODIUM CHLORIDE 0.9% 150 ML with VASOPRESSIN 60 UNIT IV SCH ×4 (16:03→18:39)
[2021-07-15] MEDS: SODIUM CHLORIDE 0.9% 1,000 ML IV SCH ×2 (16:04→23:45)
[2021-07-15] MEDS ORDERED: PHYTONADIONE 5 MG in SODIUM CHLORIDE 0.9% 50 ML IVPB ONE (16:15)
--- NOTE | 2021-07-15 16:20 | P.CNNES ---
History of Present Illness Consult date: 07/15/21 Requesting physician: Margareth Kang Reason for Consult: altered mental status, hemorrhagic stroke History of Present Illness: This is a 71-year-old woman with medical history hypertension, hyperlipidemia, coronary artery disease status post CABG, pacemaker who was transferred to our emergency department for lethargy and confusion, hypoxia. History is obtained from patient's daughter who is at bedside and medical records. Patient the was transferred from [facility] and was found to be hypoxic. Per the daughter, the patient had pneumonia 3 weeks ago and was treat at [facility] and their she had her pacemaker battery replaced then was discharged home. Then last she was confused and lethargic. Neurology is consulted for altered mental status and hemorrhagic stroke. Patient does not have history of stroke or seizures. According to the daughter the patient has not had a fall recently. She is on coumadin for years for her heart valve. Per the patient's nurse patient is intubated on ventilator and is off sedation but is altered. She is been off sedation for at least 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 Correlate clinically. Correlation with old outside CT and/or MRI would be beneficial. I personally reviewed the CT of the head and the patient had a small focal right hemorrhage on the parietal. During this hospital stay it seems that the patient the INR was supratherapeutic initially patient INR was 1.6 on 07/11/2021 that on 07/13/2021 was as high as 6.4 and was treated with vitamin K that day. Today INR 1.5. Patient was on Coumadin but the Coumadin was stopped today by the ICU team and because of the hemorrhagic the stroke. Otherwise was felt the patient isn't septic shock with multisystem organ failure and is on pressors. Patient also have acute shock liver, acute kidney injury, acute hypoxic respiratory failure due to left lung pneumonia, multifocal and bronchoscopy is indicating and Heidi albicans patient is on IV Zosyn and Diflucan. On initial presentation the patient's creatinine was 1.78 and most recent is 3.9 to a got as high as 4.0 during this admission. Calcium is 7.5 and ionized calcium is 4.4, AST is 1022 and ALT is a 1239. Patient KELLY is positive but C-and P-ANCA is negative. Patient does not have any other imaging during this admission to compare with and with the CT of the brain as well as there is no prior CT of the brain in our facility or MRI of the brain. Most currently platelets is 188K, hemoglobin is 10.4, hematocrit is 31.1. PT is 15.9 Review of Systems Review of system is limited but the prone positive and negative as per HPI. Past Medical History Past Medical History: COPD History of Any Multi-Drug Resistant Organisms: None Reported Past Surgical History: Cardiac Valve Replacement, Heart Catheterization, Pacemaker Past Anesthesia/Blood Transfusion Reactions: No Reported Reaction Type of Cardiac Device: Permanent Pacemaker, AICD Device Placement Date:: may 2021 Past Psychological History: No Psychological Hx Reported Smoking Status: Former smoker - Past Family History Mother Family Medical History: Myocardial Infarction ([place]) Father Family Medical History: Myocardial Infarction ([place]) Medications and Allergies Home Medications Medication Instructions Recorded Confirmed Type ALPRAZolam [Xanax] 1 mg PO TID PRN 07/09/21 07/09/21 History Beets Supplement 500mg 500 mg PO DAILY 07/09/21 07/09/21 History Cholecalciferol [Vitamin D3 (25 25 mcg PO DAILY 07/09/21 07/09/21 History Mcg = 1000 Iu)] Collagen + Biotin 1 cap PO DAILY 07/09/21 07/09/21 History Cyanocobalamin [Vitamin B-12] 500 mcg PO DAILY 07/09/21 07/09/21 History Ferrous Gluconate 324 mg PO DAILY 07/09/21 07/09/21 History Furosemide [Lasix] 40 mg PO DAILY 07/09/21 07/09/21 History HYDROcodone/APAP 10-325MG [[place]ridge 1 tab PO QID PRN 07/09/21 07/09/21 History 10-325] Hydroxychloroquine Sulfate 200 mg PO DAILY 07/09/21 07/09/21 History [Plaquenil] Losartan [Cozaar] 50 mg PO DAILY 07/09/21 07/09/21 History Simvastatin [Zocor] 20 mg PO DAILY 07/09/21 07/09/21 History Spironolactone [Aldactone] 25 mg PO DAILY 07/09/21 07/09/21 History Torsemide [Demadex] 20 mg PO DAILY 07/09/21 07/09/21 History Warfarin [Coumadin] 2 mg PO DAILY 07/09/21 07/09/21 History Zolpidem [Ambien] 10 mg PO HS 07/09/21 07/09/21 History guaiFENesin-Coden 100-10MG/5ML 5 ml PO TID PRN 07/09/21 07/09/21 History [Robitussin AC] minoxidiL 1.25 mg PO DAILY 07/09/21 07/09/21 History Allergies Allergy/AdvReac Type Severity Reaction Status Date / Time SURGICAL TAPE Allergy BLISTERS Uncoded 07/09/21 16:05 Physical Examination - Vital Signs Vital Signs: Vital Signs Temp Pulse Resp BP Pulse Ox 07/15/21 11:00 73 24 98 07/15/21 10:53 73 07/15/21 10:45 72 24 99 07/15/21 10:42 72 07/15/21 10:30 72 24 97 07/15/21 10:15 73 24 96 07/15/21 10:00 72 24 96 07/15/21 09:45 73 24 98 07/15/21 09:30 72 24 98 07/15/21 09:15 73 24 97 07/15/21 09:00 71 24 98 07/15/21 08:45 72 24 98 07/15/21 08:30 71 24 98 07/15/21 08:15 72 24 106/60 97 07/15/21 08:00 97.7 F 72 24 107/64 97 07/15/21 07:45 73 24 107/64 98 07/15/21 07:33 72 07/15/21 07:30 72 24 107/64 99 07/15/21 07:23 72 07/15/21 07:15 72 24 107/64 98 07/15/21 07:00 72 24 107/64 98 07/15/21 06:45 73 24 107/64 98 07/15/21 06:30 72 24 107/64 97 07/15/21 06:15 71 24 107/64 98 07/15/21 06:00 72 24 104/62 98 07/15/21 05:45 71 24 104/62 98 07/15/21 05:30 73 24 104/62 97 07/15/21 05:15 71 24 104/62 99 07/15/21 05:00 71 24 104/62 99 07/15/21 04:45 71 24 104/62 98 07/15/21 04:30 71 24 104/62 98 07/15/21 04:15 71 24 104/62 98 07/15/21 04:00 97.5 F L 71 24 98/59 98 07/15/21 03:45 71 24 98/59 100 07/15/21 03:40 71 07/15/21 03:30 71 24 98/59 100 07/15/21 03:21 71 07/15/21 03:15 71 24 98/59 96 07/15/21 03:00 71 24 98/59 96 07/15/21 02:45 71 24 98/59 96 07/15/21 02:30 71 24 98/59 96 07/15/21 02:15 71 24 98/59 97 07/15/21 02:00 71 24 101/61 96 07/15/21 01:45 71 24 101/61 97 07/15/21 01:30 71 24 101/61 96 07/15/21 01:15 72 19 101/61 96 07/15/21 01:00 72 24 101/61 95 07/15/21 00:45 73 24 101/61 95 07/15/21 00:30 72 24 101/61 95 07/15/21 00:15 73 24 101/61 95 07/15/21 00:00 97.8 F 73 24 99/58 95 07/14/21 23:45 72 24 99/58 97 07/14/21 23:35 73 07/14/21 23:30 72 24 99/58 98 07/14/21 23:17 73 07/14/21 23:15 73 24 99/58 96 07/14/21 23:10 72 24 99/58 97 07/14/21 23:00 72 24 99/58 97 07/14/21 22:45 72 26 H 99/58 97 07/14/21 22:30 71 24 99/58 97 07/14/21 22:15 71 24 99/58 97 07/14/21 22:00 71 24 99/61 97 07/14/21 21:45 71 24 99/61 97 07/14/21 21:30 71 24 99/61 97 07/14/21 21:15 72 24 99/61 96 07/14/21 21:00 72 24 99/61 96 07/14/21 20:45 72 24 99/61 98 07/14/21 20:30 72 24 99/61 97 07/14/21 20:15 73 24 99/61 96 07/14/21 20:00 97.8 F 72 24 97/55 98 07/14/21 19:45 71 24 97/55 97 07/14/21 19:33 72 07/14/21 19:30 73 24 97/55 97 07/14/21 19:15 72 24 97/55 98 07/14/21 19:00 71 24 97/55 98 07/14/21 18:45 71 24 97/55 98 07/14/21 18:30 72 24 97/55 97 07/14/21 18:15 73 24 97/55 97 07/14/21 18:00 72 24 102/65 96 07/14/21 17:45 76 24 102/65 97 07/14/21 17:30 72 24 86/51 97 07/14/21 17:15 72 17 86/51 96 07/14/21 17:00 71 24 103/63 95 07/14/21 16:45 72 24 103/63 95 07/14/21 16:30 73 24 103/63 96 07/14/21 16:15 79 17 103/63 96 07/14/21 16:00 97.8 F 76 24 96/59 98 07/14/21 15:45 84 24 96/59 99 07/14/21 15:30 76 24 96/59 98 07/14/21 15:23 81 07/14/21 15:15 76 24 96/59 99 07/14/21 15:08 75 07/14/21 15:00 76 24 82/54 96 Intake and Output 07/14/21 07/15/21 07/15/21 22:59 06:59 14:59 Intake Total 752.231 700 435 Output Total 855 770 289 Balance -102.769 -70 146 Intake: IV 40 100 60 .9 kvo 40 100 60 Intake, IV Titration 712.231 600 375 Amount Norepinephrine 32 mg In 12.231 Sodium Chloride 0.9% 218 ml @ 0.05 MCG/KG/MIN 1. 425 mls/hr IV .Q24H [facility] Rx#:[id number] Piperacillin-Tazobactam 3 100 .375 gm In Sodium Chloride 0.9% 100 ml @ 25 mls/hr IVPB Q12HR [facility] Rx #:[id number] Sodium Chloride 0.9% 1, 600 600 375 000 ml @ 75 mls/hr IV . [id number] [facility] Rx#:[id number] Tube Feeding 0 0 Output: Urine 855 770 289 Other: Voiding Method Indwelling Catheter Indwelling Catheter Indwelling Catheter Weight 75.7 kg ABP, PAP, CO, CI - Last 8 Hours Arterial Blood Pressure 114/52 Arterial Blood Pressure 112/52 Arterial Blood Pressure 108/49 Arterial Blood Pressure 107/49 Arterial Blood Pressure 118/56 Arterial Blood Pressure 111/52 Arterial Blood Pressure 112/52 Arterial Blood Pressure 117/54 Arterial Blood Pressure 119/56 Arterial Blood Pressure 119/56 Arterial Blood Pressure 120/57 Arterial Blood Pressure 117/57 Arterial Blood Pressure 116/55 Arterial Blood Pressure 121/56 Arterial Blood Pressure 120/57 Arterial Blood Pressure 118/56 Arterial Blood Pressure 118/56 GENERAL: The patient is lying in bed and does not appear in acute distress. HENT: Supple neck. CHEST: The heart rate is regular rate rhythm. No edema of lower extremities. LUNG: Clear to auscultation bilaterally no wheezing noted throughout. Not labored breathing. Intubated on ventilator. ABDOMEN/GI: Bowel sounds present in all 4 quadrants. No tenderness to palpation throughout. NEUROLOGICAL: Limited because of her condition. Higher mental function: The patient is comatose. GCS 3 (E1, VT1, M1). Cranial nerves: I had to manually open her eyes. Primary gaze is midline. The pupils are round, equal, about 4-5mm bilaterally and reactive to light. No facial weakness. Positive gag reflex. Is breathing over the vent. Motor: The strength is limited but no movement noted to painful stimuli throughout. No spontaneous movement noted. Cerebellum: Unable to assess. Sensation: Unable to assess light touch but to painful stimuli not withdrawing or no reaction to it. Reflexes (right/left): 1+ throughout. Plantars are mute bilaterally. Results - Laboratory Findings CBC and BMP: 07/15/21 04:30 07/15/21 03:45 Abnormal Lab Findings: Abnormal Labs 07/09/21 07/09/21 07/10/21 14:08 14:08 05:26 WBC 3.6 L RBC 3.48 L 3.48 L Hgb 9.8 L 9.9 L Hct 31.4 L 31.4 L Neutrophils # Neutrophils # (Manual) Lymphocytes # (Manual) 0.68 L Monocytes # Monocytes # (Manual) Basophils # Metamyelocytes # (Man) 0.10 H 0.11 H Myelocytes # (Manual) 0.10 H 0.07 H Nucleated RBCs PT INR ABG pH ABG pCO2 ABG pO2 ABG HCO3 ABG Total CO2 ABG O2 Saturation Potassium Chloride 113 H Carbon Dioxide 19 L BUN 27 H Creatinine 1.78 H Glucose 106 H POC Glucose (mg/dL) Plasma Lactic Acid Shaq Calcium 8.3 L Ionized Calcium Meseret Total Bilirubin AST ALT Lactate Dehydrogenase Troponin I Total Protein 6.2 L Albumin 3.1 L Urine Protein Urine Blood Urine RBC KELLY Screen 07/10/21 07/10/21 07/10/21 05:26 05:26 08:30 WBC RBC Hgb Hct Neutrophils # Neutrophils # (Manual) Lymphocytes # (Manual) Monocytes # Monocytes # (Manual) Basophils # Metamyelocytes # (Man) Myelocytes # (Manual) Nucleated RBCs PT INR ABG pH ABG pCO2 ABG pO2 ABG HCO3 ABG Total CO2 ABG O2 Saturation Potassium Chloride 108 H Carbon Dioxide 20 L BUN 35 H Creatinine 1.93 H Glucose POC Glucose (mg/dL) Plasma Lactic Acid Hsaq Calcium Ionized Calcium Meseret Total Bilirubin AST ALT Lactate Dehydrogenase Troponin I 0.545 H* 0.551 H* Total Protein 5.9 L Albumin 2.9 L Urine Protein Urine Blood Urine RBC KELLY Screen 07/10/21 07/10/21 07/10/21 11:20 12:36 13:35 WBC RBC Hgb Hct Neutrophils # Neutrophils # (Manual) Lymphocytes # (Manual) Monocytes # Monocytes # (Manual) Basophils # Metamyelocytes # (Man) Myelocytes # (Manual) Nucleated RBCs PT 14.6 H INR 1.4 H ABG pH 7.25 L ABG pCO2 ABG pO2 70 L ABG HCO3 19 L ABG Total CO2 ABG O2 Saturation 93.4 L Potassium Chloride Carbon Dioxide BUN Creatinine Glucose POC Glucose (mg/dL) Plasma Lactic Acid Shaq Calcium Ionized Calcium Meseret Total Bilirubin AST ALT Lactate Dehydrogenase Troponin I 0.409 H* Total Protein Albumin Urine Protein Urine Blood Urine RBC KELLY Screen 07/11/21 07/11/21 07/11/21 00:34 00:38 00:38 WBC 12.5 H RBC 3.56 L Hgb 10.1 L Hct 32.1 L Neutrophils # Neutrophils # (Manual) 10.20 H Lymphocytes # (Manual) Monocytes # Monocytes # (Manual) Basophils # Metamyelocytes # (Man) Myelocytes # (Manual) Nucleated RBCs PT INR ABG pH 7.27 L ABG pCO2 ABG pO2 61 L ABG HCO3 20 L ABG Total CO2 ABG O2 Saturation 89.7 L Potassium Chloride Carbon Dioxide BUN Creatinine Glucose POC Glucose (mg/dL) Plasma Lactic Acid Shaq Calcium Ionized Calcium Meseret Total Bilirubin AST ALT Lactate Dehydrogenase Troponin I 0.354 H* Total Protein Albumin Urine Protein Urine Blood Urine RBC KELLY Screen 07/11/21 07/11/21 07/11/21 00:38 06:12 13:04 WBC RBC Hgb Hct Neutrophils # Neutrophils # (Manual) Lymphocytes # (Manual) Monocytes # Monocytes # (Manual) Basophils # Metamyelocytes # (Man) Myelocytes # (Manual) Nucleated RBCs PT 16.0 H INR 1.6 H ABG pH 7.30 L ABG pCO2 34 L ABG pO2 111 H ABG HCO3 17 L ABG Total CO2 18 L ABG O2 Saturation 97.7 H Potassium Chloride 112 H Carbon Dioxide 21 L BUN 42 H Creatinine 1.60 H Glucose POC Glucose (mg/dL) Plasma Lactic Acid Shaq Calcium Ionized Calcium Meseret Total Bilirubin AST ALT Lactate Dehydrogenase Troponin I Total Protein Albumin Urine Protein Urine Blood Urine RBC KELLY Screen 07/11/21 07/11/21 07/11/21 18:24 19:07 23:54 WBC RBC Hgb Hct Neutrophils # Neutrophils # (Manual) Lymphocytes # (Manual) Monocytes # Monocytes # (Manual) Basophils # Metamyelocytes # (Man) Myelocytes # (Manual) Nucleated RBCs PT INR ABG pH ABG pCO2 ABG pO2 ABG HCO3 ABG Total CO2 ABG O2 Saturation Potassium Chloride Carbon Dioxide BUN Creatinine Glucose POC Glucose (mg/dL) 69 L 187 H 102 H Plasma Lactic Acid Shaq Calcium Ionized Calcium Meseret Total Bilirubin AST ALT Lactate Dehydrogenase Troponin I Total Protein Albumin Urine Protein Urine Blood Urine RBC KELLY Screen 07/12/21 07/12/21 07/12/21 04:21 04:21 04:21 WBC 21.8 H RBC 3.60 L Hgb 10.4 L Hct 32.6 L Neutrophils # Neutrophils # (Manual) 19.10 H Lymphocytes # (Manual) Monocytes # Monocytes # (Manual) 1.09 H Basophils # Metamyelocytes # (Man) 0.44 H Myelocytes # (Manual) 0.22 H Nucleated RBCs PT 28.8 H INR 2.9 H ABG pH ABG pCO2 ABG pO2 ABG HCO3 ABG Total CO2 ABG O2 Saturation Potassium Chloride 117 H Carbon Dioxide 13 L BUN 46 H Creatinine 2.68 H Glucose 72 L POC Glucose (mg/dL) Plasma Lactic Acid Shaq Calcium 8.3 L Ionized Calcium Meseret Total Bilirubin 1.7 H AST 4763 H ALT 1213 H Lactate Dehydrogenase Troponin I Total Protein 5.6 L Albumin 2.7 L Urine Protein Urine Blood Urine RBC KELLY Screen 07/12/21 07/12/21 07/12/21 04:21 05:16 11:48 WBC RBC Hgb Hct Neutrophils # Neutrophils # (Manual) Lymphocytes # (Manual) Monocytes # Monocytes # (Manual) Basophils # Metamyelocytes # (Man) Myelocytes # (Manual) Nucleated RBCs PT INR ABG pH 7.16 L* ABG pCO2 34 L ABG pO2 223 H ABG HCO3 12 L ABG Total CO2 13 L ABG O2 Saturation 99.0 H Potassium Chloride Carbon Dioxide BUN Creatinine Glucose POC Glucose (mg/dL) 107 H Plasma Lactic Acid Shaq Calcium Ionized Calcium Meseret Total Bilirubin AST ALT Lactate Dehydrogenase 02010 H Troponin I Total Protein Albumin Urine Protein Urine Blood Urine RBC KELLY Screen 07/12/21 07/12/21 07/12/21 16:03 16:03 18:13 WBC RBC Hgb Hct Neutrophils # Neutrophils # (Manual) Lymphocytes # (Manual) Monocytes # Monocytes # (Manual) Basophils # Metamyelocytes # (Man) Myelocytes # (Manual) Nucleated RBCs PT INR ABG pH ABG pCO2 ABG pO2 ABG HCO3 ABG Total CO2 ABG O2 Saturation Potassium Chloride Carbon Dioxide BUN Creatinine Glucose POC Glucose (mg/dL) 110 H Plasma Lactic Acid Shaq 6.9 H* Calcium Ionized Calcium Meseret Total Bilirubin AST ALT Lactate Dehydrogenase Troponin I Total Protein Albumin Urine Protein Urine Blood Urine RBC KELLY Screen POSITIVE A 07/13/21 07/13/21 07/13/21 03:45 03:45 03:45 WBC 25.4 H RBC 3.59 L Hgb 10.1 L Hct 32.0 L Neutrophils # 22.4 H Neutrophils # (Manual) Lymphocytes # (Manual) Monocytes # 1.1 H Monocytes # (Manual) Basophils # 0.3 H Metamyelocytes # (Man) Myelocytes # (Manual) Nucleated RBCs PT 64.9 H INR 6.4 H* ABG pH ABG pCO2 ABG pO2 ABG HCO3 ABG Total CO2 ABG O2 Saturation Potassium Chloride 109 H Carbon Dioxide 16 L BUN 53 H Creatinine 3.88 H Glucose 121 H POC Glucose (mg/dL) Plasma Lactic Acid Shaq Calcium 7.5 L Ionized Calcium Meseret Total Bilirubin AST ALT Lactate Dehydrogenase Troponin I Total Protein Albumin Urine Protein Urine Blood Urine RBC KELLY Screen 07/13/21 07/13/21 07/13/21 05:01 11:32 17:36 WBC RBC Hgb Hct Neutrophils # Neutrophils # (Manual) Lymphocytes # (Manual) Monocytes # Monocytes # (Manual) Basophils # Metamyelocytes # (Man) Myelocytes # (Manual) Nucleated RBCs PT INR ABG pH 7.27 L ABG pCO2 ABG pO2 146 H ABG HCO3 16 L ABG Total CO2 18 L ABG O2 Saturation 98.3 H Potassium Chloride Carbon Dioxide BUN Creatinine Glucose POC Glucose (mg/dL) 136 H 147 H Plasma Lactic Acid Shaq Calcium Ionized Calcium Meseret Total Bilirubin AST ALT Lactate Dehydrogenase Troponin I Total Protein Albumin Urine Protein Urine Blood Urine RBC KELLY Screen 07/13/21 07/13/21 07/13/21 17:50 17:50 23:33 WBC RBC Hgb Hct Neutrophils # Neutrophils # (Manual) Lymphocytes # (Manual) Monocytes # Monocytes # (Manual) Basophils # Metamyelocytes # (Man) Myelocytes # (Manual) Nucleated RBCs PT 40.1 H INR 4.0 H ABG pH ABG pCO2 ABG pO2 ABG HCO3 ABG Total CO2 ABG O2 Saturation Potassium Chloride Carbon Dioxide BUN 57 H Creatinine 4.02 H Glucose 136 H POC Glucose (mg/dL) 140 H Plasma Lactic Acid Shaq Calcium 7.1 L Ionized Calcium Meseret Total Bilirubin 2.9 H AST 3115 H ALT 1882 H Lactate Dehydrogenase Troponin I Total Protein 5.1 L Albumin 2.3 L Urine Protein Urine Blood Urine RBC KELLY Screen 07/14/21 07/14/21 07/14/21 03:53 03:53 03:53 WBC 23.6 H RBC 3.50 L Hgb 9.8 L Hct 30.0 L Neutrophils # 21.3 H Neutrophils # (Manual) Lymphocytes # (Manual) Monocytes # Monocytes # (Manual) Basophils # Metamyelocytes # (Man) Myelocytes # (Manual) Nucleated RBCs PT 25.4 H INR 2.5 H ABG pH ABG pCO2 ABG pO2 ABG HCO3 ABG Total CO2 ABG O2 Saturation Potassium 3.4 L Chloride Carbon Dioxide BUN 61 H Creatinine 3.98 H Glucose 139 H POC Glucose (mg/dL) Plasma Lactic Acid Shaq Calcium 7.0 L Ionized Calcium Meseret 4.1 L Total Bilirubin 3.4 H AST 1844 H ALT 1606 H Lactate Dehydrogenase Troponin I Total Protein 4.8 L Albumin 2.2 L Urine Protein Urine Blood Urine RBC KELLY Screen 07/14/21 07/14/21 07/14/21 05:28 05:51 10:21 WBC RBC Hgb Hct Neutrophils # Neutrophils # (Manual) Lymphocytes # (Manual) Monocytes # Monocytes # (Manual) Basophils # Metamyelocytes # (Man) Myelocytes # (Manual) Nucleated RBCs PT INR ABG pH ABG pCO2 ABG pO2 74 L ABG HCO3 27 H ABG Total CO2 28 H ABG O2 Saturation Potassium Chloride Carbon Dioxide BUN Creatinine Glucose POC Glucose (mg/dL) 140 H Plasma Lactic Acid Shaq Calcium Ionized Calcium Meseret Total Bilirubin AST ALT Lactate Dehydrogenase Troponin I Total Protein Albumin Urine Protein Trace H Urine Blood Moderate H Urine RBC 13 H KELLY Screen 07/14/21 07/14/21 07/15/21 11:54 17:23 03:45 WBC RBC Hgb Hct Neutrophils # Neutrophils # (Manual) Lymphocytes # (Manual) Monocytes # Monocytes # (Manual) Basophils # Metamyelocytes # (Man) Myelocytes # (Manual) Nucleated RBCs PT INR ABG pH ABG pCO2 ABG pO2 ABG HCO3 ABG Total CO2 ABG O2 Saturation Potassium Chloride Carbon Dioxide BUN 66 H Creatinine 3.92 H Glucose POC Glucose (mg/dL) 142 H 108 H Plasma Lactic Acid Shaq Calcium 7.5 L Ionized Calcium Meseret 4.4 L Total Bilirubin 3.5 H AST 1022 H ALT 1239 H Lactate Dehydrogenase Troponin I Total Protein 5.1 L Albumin 2.2 L Urine Protein Urine Blood Urine RBC KELLY Screen 07/15/21 07/15/21 07/15/21 04:30 04:45 05:22 WBC 29.1 H RBC 3.60 L Hgb 10.4 L Hct 31.1 L Neutrophils # Neutrophils # (Manual) 26.10 H Lymphocytes # (Manual) Monocytes # Monocytes # (Manual) Basophils # Metamyelocytes # (Man) 0.29 H Myelocytes # (Manual) Nucleated RBCs 1 H PT 15.9 H INR 1.5 H ABG pH ABG pCO2 ABG pO2 124 H ABG HCO3 ABG Total CO2 27 H ABG O2 Saturation 98.2 H Potassium Chloride Carbon Dioxide BUN Creatinine Glucose POC Glucose (mg/dL) Plasma Lactic Acid Shaq Calcium Ionized Calcium Meseret Total Bilirubin AST ALT Lactate Dehydrogenase Troponin I Total Protein Albumin Urine Protein Urine Blood Urine RBC KELLY Screen 07/15/21 11:53 WBC RBC Hgb Hct Neutrophils # Neutrophils # (Manual) Lymphocytes # (Manual) Monocytes # Monocytes # (Manual) Basophils # Metamyelocytes # (Man) Myelocytes # (Manual) Nucleated RBCs PT INR ABG pH ABG pCO2 ABG pO2 ABG HCO3 ABG Total CO2 ABG O2 Saturation Potassium Chloride Carbon Dioxide BUN Creatinine Glucose POC Glucose (mg/dL) 120 H Plasma Lactic Acid Shaq Calcium Ionized Calcium Meseret Total Bilirubin AST ALT Lactate Dehydrogenase Troponin I Total Protein Albumin Urine Protein Urine Blood Urine RBC KELLY Screen Assessment and Plan Assessment: Acute small Hemorrhagic stroke over the right parietal: Unsure cause. Possibly could be due to episode of supratherapeutic INR (was as steve as 6.4 that she received reversal on 07/13 and currently 1.5). Cannot rule out processes hemorrhagic transformation but seems unlikely since only lesion. Altered mental status due to multifactorial: Septic encephalopathy, metabolic encephalopathy. Septic shock with multisystem organ failure on pressor Acute kidney injury trending of Acute hypoxic respiratory failure due to left lung pneumonia indicating Heidi albicans Acute shock liver Electrolyte abnormality: Hypocalcemia Acute Coumadin toxicity that received reversal improved and INR is subtherapeutic History of coronary artery disease status post the CABG s/p Pacemaker on coumadin Valvular heart surgery Hypertension Hyperlipidemia Plan: CT of the head was ordered by the ICU team and it's reported as left parietal area could reflect focal acute hemorrhagic infarct, I see more suspicious for hemorrhagic metastasis disease given the surrounding vasogenic edema. I ordered a repeat CT of the head for 8 PM today and if there is worsening of the hemorrhage I recommend the patient to be transferred for escalation of care for neurosurgical evaluation. I will also repeat CT head for tomorrow 9am. Cannot obtain MRA of the head since the patient is intubated on a ventilator. Cannot obtain CTA of the head as well to rule out any aneurysm or arterial/venous malformation because of her kidney function. I ordered an urgent EEG. I started the patient on Keppra 500mg IV every 12 hours as seizure prophylaxis with loading of 750mg once. Coumadin is held and I recommend that she remain on hold for now. Avoid any antiplatelets or anticoagulation because of acute bleed Every hour neuro checks Ordered ammonia level Nephrology team is on board I'll defer the rest of the medical management to the primary and ICU team Patient condition is critical. The plan was discussed with the patient's daughter in detailed, and ICU team. Thank you for the Consultation. Tremaine Mcguire M.D. Neuro-hospitalist Time with Patient: Greater than 30
[2021-07-15] MEDS ORDERED: CALCIUM GLUCONATE IN NACL 1 GM in SALINE 1 100ML.BAG IVPB ONE (17:00)
--- NOTE | 2021-07-15 17:00 | EEG ---
ELECTROENCEPHALOGRAM REPORT DATE OF SERVICE: 07/15/2021. CLINICAL HISTORY: This is a 71-year-old woman with altered mental status. The video EEG is obtained to evaluate for seizure epileptiform activity. Relevant medication is 2 mg Ativan. EEG TYPE: A routine 21-channel EEG is performed with video using the 10/20 electrode placement system. DESCRIPTION: Patient is intubated on a ventilator. The background consists of moderate voltage of 2.5 to 3.5 hertz nonrhythmic delta activity and at times is seen semi-rhythmic intermixed with some theta activity. At times the background looks sharply contoured. There is no physiological sleep architecture seen. There is no focal slowing. There is moderate to significant anterior to posterior lag with triphasic morphology. Interictal and ictal is none. After patient received 2 mg Ativan there is no drastic change in the patient's background. ACTIVATION PROCEDURE: Photic stimulation and hyperventilation are not performed. CLINICAL INTERPRETATION: This is an abnormal routine EEG. The background slowing is suggestive of severe encephalopathy. The triphasic waves are suggestive of likely toxic metabolic etiology. Otherwise there is no focal slowing, epileptiform discharge or seizure on the EEG. Clinical correlation is recommended. MMODL / IJN: [id number] / MTDD
--- NOTE | 2021-07-15 17:07 | P.PN ---
Subjective Progress Note Date: 07/14/21 Principal diagnosis: Pneumonia Patient is a 71-year-old female with a past medical history significant for COPD and recent admission to [facility] for pneumonia pr esented to hospital with increasing shortness of breath and cough with a CT suspicious for left lower lobe pneumonia. On today's evaluation that is 07/14/2021, the patient is afebrile today, the patient remains to be intubated on the vent, FiO2 is stable at 40 %, patient is requiring less pressor support per the nursing staff, no significant purulent secretion through the ET diarrhea has been reported by nursing staff Objective - Vital Signs Vital signs: Vital Signs Temp 97.7 F 07/14/21 12:00 Pulse 76 07/14/21 15:30 Resp 24 07/14/21 15:30 BP 96/59 07/14/21 15:30 Pulse Ox 98 07/14/21 15:30 Intake & Output 07/13/21 07/14/21 07/14/21 18:59 06:59 18:59 Intake Total 2004.315 1622.550 689.901 Output Total 980 1425 1094 Balance 1024.315 197.550 -404.099 Weight 75 kg 75 kg Intake: IV 1500 1430 220 .9 kvo 130 20 Anidulafungin 200 mg In 200 Sodium Chloride 0.9% 200 ml @ 84 mls/hr IVPB ONCE ONE Rx#:[id number] Bicarb with 3 amps 1000 1200 100 Dextrose 5% in Water 1, 200 000 ml @ 100 mls/hr IV . Q11H [facility] with Sodium Bicarb (1 Meq/ml) 100 ml Rx#:[id number] Piperacillin-Tazobactam 3 100 100 100 .375 gm In Sodium Chloride 0.9% 100 ml @ 25 mls/hr IVPB Q8HR [facility] Rx# :[id number] Intake, IV Titration 364.315 192.550 469.901 Amount Norepinephrine 32 mg In 268.885 93.748 14.432 Sodium Chloride 0.9% 218 ml @ 0.05 MCG/KG/MIN 1. 425 mls/hr IV .Q24H [facility] Rx#:[id number] Sodium Chloride 0.9% 1, 450 000 ml @ 75 mls/hr IV . [id number] [facility] Rx#:[id number] propofoL 1,000 mg In 95.43 98.802 5.469 Empty Bag 1 bag @ 5 MCG/ KG/MIN 1.823 mls/hr IV . Q24H [facility] Rx#:[id number] Tube Feeding 80 0 0 Other 60 Output: Urine 980 1425 1094 Other: Voiding Method Indwelling Catheter Indwelling Catheter Indwelling Catheter ABP, PAP, CO, CI - Last Documented Arterial Blood Pressure 121/60 - Exam GENERAL DESCRIPTION: An elderly female intubated on vent RESPIRATORY SYSTEM: Unlabored breathing , decreased breath sounds at bases HEART: S1 S2 regular rate and rhythm , ABDOMEN: Soft , no tenderness EXTREMITIES: No edema feet - Labs CBC & Chem 7: 07/15/21 04:30 07/15/21 03:45 Labs: Abnormal Lab Results - Last 24 Hours (Table) 07/13/21 07/13/21 07/13/21 Range/Units 17:36 17:50 17:50 WBC (3.8-10.6) k/uL RBC (3.80-5.40) m/uL Hgb (11.4-16.0) gm/dL Hct (34.0-46.0) % Neutrophils # (1.3-7.7) k/uL PT 40.1 H (9.0-12.0) sec INR 4.0 H (<1.2) ABG pO2 (83-108) mmHg ABG HCO3 (21-25) mmol/L ABG Total CO2 (19-24) mmol/L Potassium (3.5-5.1) mmol/L BUN 57 H (7-17) mg/dL Creatinine 4.02 H (0.52-1.04) mg/dL Glucose 136 H (74-99) mg/dL POC Glucose (mg/dL) 147 H (75-99) mg/dL Calcium 7.1 L (8.4-10.2) mg/dL Ionized Calcium Meseret (4.5-5.3) mg/dL Total Bilirubin 2.9 H (0.2-1.3) mg/dL AST 3115 H (14-36) U/L ALT 1882 H (4-34) U/L Total Protein 5.1 L (6.3-8.2) g/dL Albumin 2.3 L (3.5-5.0) g/dL Urine Protein (Negative) Urine Blood (Negative) Urine RBC (0-5) /hpf 07/13/21 07/14/21 07/14/21 Range/Units 23:33 03:53 03:53 WBC 23.6 H (3.8-10.6) k/uL RBC 3.50 L (3.80-5.40) m/uL Hgb 9.8 L (11.4-16.0) gm/dL Hct 30.0 L (34.0-46.0) % Neutrophils # 21.3 H (1.3-7.7) k/uL PT (9.0-12.0) sec INR (<1.2) ABG pO2 (83-108) mmHg ABG HCO3 (21-25) mmol/L ABG Total CO2 (19-24) mmol/L Potassium 3.4 L (3.5-5.1) mmol/L BUN 61 H (7-17) mg/dL Creatinine 3.98 H (0.52-1.04) mg/dL Glucose 139 H (74-99) mg/dL POC Glucose (mg/dL) 140 H (75-99) mg/dL Calcium 7.0 L (8.4-10.2) mg/dL Ionized Calcium Meseret 4.1 L (4.5-5.3) mg/dL Total Bilirubin 3.4 H (0.2-1.3) mg/dL AST 1844 H (14-36) U/L ALT 1606 H (4-34) U/L Total Protein 4.8 L (6.3-8.2) g/dL Albumin 2.2 L (3.5-5.0) g/dL Urine Protein (Negative) Urine Blood (Negative) Urine RBC (0-5) /hpf 07/14/21 07/14/21 07/14/21 Range/Units 03:53 05:28 05:51 WBC (3.8-10.6) k/uL RBC (3.80-5.40) m/uL Hgb (11.4-16.0) gm/dL Hct (34.0-46.0) % Neutrophils # (1.3-7.7) k/uL PT 25.4 H (9.0-12.0) sec INR 2.5 H (<1.2) ABG pO2 74 L (83-108) mmHg ABG HCO3 27 H (21-25) mmol/L ABG Total CO2 28 H (19-24) mmol/L Potassium (3.5-5.1) mmol/L BUN (7-17) mg/dL Creatinine (0.52-1.04) mg/dL Glucose (74-99) mg/dL POC Glucose (mg/dL) 140 H (75-99) mg/dL Calcium (8.4-10.2) mg/dL Ionized Calcium Meseret (4.5-5.3) mg/dL Total Bilirubin (0.2-1.3) mg/dL AST (14-36) U/L ALT (4-34) U/L Total Protein (6.3-8.2) g/dL Albumin (3.5-5.0) g/dL Urine Protein (Negative) Urine Blood (Negative) Urine RBC (0-5) /hpf 07/14/21 07/14/21 Range/Units 10:21 11:54 WBC (3.8-10.6) k/uL RBC (3.80-5.40) m/uL Hgb (11.4-16.0) gm/dL Hct (34.0-46.0) % Neutrophils # (1.3-7.7) k/uL PT (9.0-12.0) sec INR (<1.2) ABG pO2 (83-108) mmHg ABG HCO3 (21-25) mmol/L ABG Total CO2 (19-24) mmol/L Potassium (3.5-5.1) mmol/L BUN (7-17) mg/dL Creatinine (0.52-1.04) mg/dL Glucose (74-99) mg/dL POC Glucose (mg/dL) 142 H (75-99) mg/dL Calcium (8.4-10.2) mg/dL Ionized Calcium Meseret (4.5-5.3) mg/dL Total Bilirubin (0.2-1.3) mg/dL AST (14-36) U/L ALT (4-34) U/L Total Protein (6.3-8.2) g/dL Albumin (3.5-5.0) g/dL Urine Protein Trace H (Negative) Urine Blood Moderate H (Negative) Urine RBC 13 H (0-5) /hpf Microbiology - Last 24 Hours (Table) 07/12/21 21:40 Blood Culture - Preliminary Blood No Growth after 24 hours 07/09/21 16:20 Blood Culture - Preliminary Blood No Growth after 96 hours 07/09/21 16:30 Blood Culture - Preliminary Blood No Growth after 96 hours Assessment and Plan (1) Pneumonia Current Visit: Yes Status: Acute Code(s): J18.9 - PNEUMONIA, UNSPECIFIED ORGANISM SNOMED Code(s): 183695871 Plan: 1patient presented to hospital with acute respiratory failure with in this patient did have hypoxemia increasing shortness of breath and cough with evidence of left lower lobe pneumonia on the CT and recently admitted and treated at [facility] having intercourse for the gram-negative pathogen. 2patient did have worsening of respiratory status requiring intubation patient is status post bronchoscopy and lavage those cultures are growing Heidi which is more likely colonizer 3patient is currently being treated with Zosyn and monitor clinical course closely
--- NOTE | 2021-07-15 17:10 | P.PN ---
Subjective Progress Note Date: 07/15/21 Principal diagnosis: Pneumonia Patient is a 71-year-old female with a past medical history significant for COPD and recent admission to [facility] for pneumonia pr esented to hospital with increasing shortness of breath and cough with a CT suspicious for left lower lobe pneumonia. On today's evaluation that is 07/15/2021, the patient remains to be afebrile, the patient remains to be intubated on the vent, FiO2 is stable at 40 %, no significant purulent secretion through the ET diarrhea has been reported by nursing staff, patient did have a worsening of the kidney function and elevated liver enzymes with evidence of left-sided hydronephrosis urology has been consulted Objective - Vital Signs Vital signs: Vital Signs Temp 97.7 F 07/15/21 08:00 Pulse 73 07/15/21 11:00 Resp 24 07/15/21 11:00 BP 106/60 07/15/21 09:45 Pulse Ox 98 07/15/21 11:00 Intake & Output 07/14/21 07/15/21 07/15/21 18:59 06:59 18:59 Intake Total 985.689 4533 435 Output Total 1414 1175 289 Balance -486.868 -35 146 Weight 75 kg 75.7 kg Intake: IV 220 140 60 .9 kvo 20 140 60 Bicarb with 3 amps 100 Piperacillin-Tazobactam 3 100 .375 gm In Sodium Chloride 0.9% 100 ml @ 25 mls/hr IVPB Q8HR [facility] Rx# :[id number] Intake, IV Titration 220.008 0170 375 Amount Norepinephrine 32 mg In 26.663 Sodium Chloride 0.9% 218 ml @ 0.05 MCG/KG/MIN 1. 425 mls/hr IV .Q24H [facility] Rx#:[id number] Piperacillin-Tazobactam 3 100 .375 gm In Sodium Chloride 0.9% 100 ml @ 25 mls/hr IVPB Q12HR [facility] Rx #:[id number] Sodium Chloride 0.9% 1, 675 900 375 000 ml @ 75 mls/hr IV . [id number] [facility] Rx#:[id number] propofoL 1,000 mg In 5.469 Empty Bag 1 bag @ 5 MCG/ KG/MIN 1.823 mls/hr IV . Q24H [facility] Rx#:[id number] Tube Feeding 0 0 0 Output: Urine 1414 1175 289 Other: Voiding Method Indwelling Catheter Indwelling Catheter Indwelling Catheter ABP, PAP, CO, CI - Last Documented Arterial Blood Pressure 114/52 - Exam GENERAL DESCRIPTION: An elderly female intubated on vent RESPIRATORY SYSTEM: Unlabored breathing , decreased breath sounds at bases HEART: S1 S2 regular rate and rhythm , ABDOMEN: Soft , no tenderness EXTREMITIES: No edema feet - Labs CBC & Chem 7: 07/15/21 04:30 07/15/21 03:45 Labs: Abnormal Lab Results - Last 24 Hours (Table) 07/14/21 07/15/21 07/15/21 Range/Units 17:23 03:45 04:30 WBC 29.1 H (3.8-10.6) k/uL RBC 3.60 L (3.80-5.40) m/uL Hgb 10.4 L (11.4-16.0) gm/dL Hct 31.1 L (34.0-46.0) % Neutrophils # (Manual) 26.10 H (1.3-7.7) k/uL Metamyelocytes # (Man) 0.29 H (0) k/uL Nucleated RBCs 1 H (0-0) /100 WBC PT (9.0-12.0) sec INR (<1.2) ABG pO2 (83-108) mmHg ABG Total CO2 (19-24) mmol/L ABG O2 Saturation (94-97) % BUN 66 H (7-17) mg/dL Creatinine 3.92 H (0.52-1.04) mg/dL POC Glucose (mg/dL) 108 H (75-99) mg/dL Calcium 7.5 L (8.4-10.2) mg/dL Ionized Calcium Meseret 4.4 L (4.5-5.3) mg/dL Total Bilirubin 3.5 H (0.2-1.3) mg/dL AST 1022 H (14-36) U/L ALT 1239 H (4-34) U/L Total Protein 5.1 L (6.3-8.2) g/dL Albumin 2.2 L (3.5-5.0) g/dL 07/15/21 07/15/21 07/15/21 Range/Units 04:45 05:22 11:53 WBC (3.8-10.6) k/uL RBC (3.80-5.40) m/uL Hgb (11.4-16.0) gm/dL Hct (34.0-46.0) % Neutrophils # (Manual) (1.3-7.7) k/uL Metamyelocytes # (Man) (0) k/uL Nucleated RBCs (0-0) /100 WBC PT 15.9 H (9.0-12.0) sec INR 1.5 H (<1.2) ABG pO2 124 H (83-108) mmHg ABG Total CO2 27 H (19-24) mmol/L ABG O2 Saturation 98.2 H (94-97) % BUN (7-17) mg/dL Creatinine (0.52-1.04) mg/dL POC Glucose (mg/dL) 120 H (75-99) mg/dL Calcium (8.4-10.2) mg/dL Ionized Calcium Meseret (4.5-5.3) mg/dL Total Bilirubin (0.2-1.3) mg/dL AST (14-36) U/L ALT (4-34) U/L Total Protein (6.3-8.2) g/dL Albumin (3.5-5.0) g/dL Microbiology - Last 24 Hours (Table) 07/12/21 21:40 Blood Culture - Preliminary Blood No Growth after 48 hours 07/09/21 16:20 Blood Culture - Preliminary Blood No Growth after 120 hours 07/09/21 16:30 Blood Culture - Preliminary Blood No Growth after 120 hours Assessment and Plan (1) Pneumonia Current Visit: Yes Status: Acute Code(s): J18.9 - PNEUMONIA, UNSPECIFIED ORGANISM SNOMED Code(s): 251687616 Plan: 1patient presented to hospital with acute respiratory failure with in this patient did have hypoxemia increasing shortness of breath and cough with evidence of left lower lobe pneumonia on the CT and recently admitted and treated at [facility] having intercourse for the gram-negative pathogen. 2patient did have worsening of respiratory status requiring intubation patient is status post bronchoscopy and lavage those cultures are growing Heidi which is more likely colonizer, patient has been started on Diflucan 3patient did have worsening of the kidney function with evidence of left-sided hydronephrosis urology is on the case, also have elevated liver enzymes which are trending down with evidence of cholelithiasis, both these factors could be contributing to her elevated white count, cultures will be repeated and clinical course monitored closely 4-patient to continue with Zosyn at this point Time with Patient: Less than 30
[2021-07-15 17:31] LABS: Glucose,Whole Blood 97 mg/dL (75-99)
[2021-07-15] MEDS ORDERED: WARFARIN 2 MG TAB PO ONE (18:00)
[2021-07-15 18:13] LABS: Protein, Total 4.7 g/dL (6.2-8.2)
[2021-07-15 19:50] LABS: DNA Double-Stranded Indetermin (NEGATIVE)
--- NOTE | 2021-07-15 21:21 | CT ---
EXAMINATION TYPE: CT brain wo con DATE OF EXAM: 07/15/2021 COMPARISON: Today HISTORY: AMS. f/u bleed CT DLP: 1082.4 mGycm Automated exposure control for dose reduction was used. Images of the brain obtained without contrast. There is 5 mm focus of increased signal in the right posterior parietal lobe at the cerebral cortex. Ventricles have normal size. There is no midline shift. There is no mass effect. The calvarium is int act. Skull base is intact. IMPRESSION: Possible small focus of acute hemorrhage right posterior parietal lobe not changed compared to the ex am 8 hours ago.
[2021-07-15 22:44] LABS: Complement C3 20.8 mg/dL (80.0-207.0)
[2021-07-15 23:58] LABS: Glucose,Whole Blood 95 mg/dL (75-99)
[2021-07-16] MEDS: INSULIN ASPART (NovoLOG) 100 UNIT/ML VIAL SQ SCH ×4 (00:39→17:47)
[2021-07-16] MEDS: levETIRAcetam IV 500 MG in SODIUM CHLORIDE 0.9% 100 ML IVPB SCH ×3 (00:41→21:54)
[2021-07-16] MEDS: METOCLOPRAMIDE 5 MG/ML 2 ML VIAL IVP SCH ×4 (00:41→18:16)
[2021-07-16] MEDS: IPRATROPIUM-ALBUTEROL 3 ML NEB INHALATION SCH ×6 (04:03→23:17)
[2021-07-16 05:00] LABS: Basophils # (A) 0.2 k/uL (0-0.2); Basophils % (A) 1 %; Eosinophils # (A) 0.1 k/uL (0-0.7); Eosinophils % (A) 0 %; HGB 9.7 gm/dL (11.4-16.0); Lymphocytes # (A) 1.3 k/uL (1.0-4.8); Lymphocytes % (A) 4 %; MCH 29.3 pg (25.0-35.0); MCHC 33.4 g/dL (31.0-37.0); MCV 87.8 fL (80.0-100.0); Mean Platelet Volume 10.6; Monocytes # (A) 1.2 k/uL (0-1.0); Monocytes % (A) 4 %; Neutrophils # (A) 30.1 k/uL (1.3-7.7); Neutrophils % (A) 91 %; Platelet Count 147 k/uL (150-450); RBC 3.31 m/uL (3.80-5.40); RDW 15.2 % (11.5-15.5)
[2021-07-16 05:12] LABS: INR 1.4 (<1.2); Prothrombin Time 14.3 sec (9.0-12.0)
[2021-07-16 05:23] LABS: Albumin 2.1 g/dL (3.5-5.0); Calcium 7.9 mg/dL (8.4-10.2); Potassium 3.8 mmol/L (3.5-5.1); Total Bilirubin 2.5 mg/dL (0.2-1.3); Total Protein 4.9 g/dL (6.3-8.2)
[2021-07-16 05:38] LABS: C Reactive Protein 20.2 mg/dL (<1.0)
[2021-07-16 05:51] LABS: Glucose,Whole Blood 92 mg/dL (75-99)
[2021-07-16 05:51] LABS: ABG Base Excess -2.2 mmol/L; ABG HCO3 23 mmol/L (21-25); ABG Oxygen Saturation 98.1 % (94-97); ABG PCO2 35 mmHg (35-45); ABG PH 7.41 (7.35-7.45); ABG PO2 112 mmHg (83-108); ABG TCO2 24 mmol/L (19-24)
[2021-07-16] MEDS: PIPERACILLIN-TAZOBACTAM 3.375 GM in SODIUM CHLORIDE 0.9% 100 ML IVPB SCH ×2 (08:15→21:54)
[2021-07-16] MEDS: CHLORHEXIDINE GLUCONATE 15 ML CUP MUCOUS MEM SCH ×2 (08:15→21:54)
[2021-07-16] MEDS ORDERED: POTASSIUM CHLORIDE 20 MEQ in WATER FOR INJECTION 1 100ML.BAG IVPB STA (08:32)
[2021-07-16] MEDS ORDERED: FUROSEMIDE 10 MG/ML 10 ML VIAL IV STA (08:32)
[2021-07-16] MEDS ORDERED: CALCIUM GLUCONATE IN NACL 1 GM in SALINE 1 100ML.BAG IVPB ONE (09:27)
--- NOTE | 2021-07-16 09:31 | P.PN ---
Subjective Patient is seen in follow-up for acute kidney injury. Renal function a little worse. Urine output 30-40 mL per hour. Currently on vasopressin. Intubated. Receiving IV fluids. Vital signs stable on vasopressor support. General: Intubated. LUNGS: Breath sounds decreased. HEART: Regular rate and rhythm. ABDOMEN: Soft, no distention. EXTREMITITES: Trace edema. Objective - Vital Signs Vital signs: Vital Signs Temp 99.7 F H 07/16/21 08:00 Pulse 74 07/16/21 08:33 Resp 24 07/16/21 08:33 BP 98/52 07/16/21 08:00 Pulse Ox 95 07/16/21 08:15 Intake & Output 07/15/21 07/16/21 07/16/21 18:59 06:59 18:59 Intake Total 1400 1094.260 Output Total 583 585 Balance 817 509.260 Weight 77.4 kg Intake: IV 200 965 .9 kvo 200 865 Piperacillin-Tazobactam 3 100 .375 gm In Sodium Chloride 0.9% 100 ml @ 25 mls/hr IVPB Q8HR [facility] Rx# :[id number] Intake, IV Titration 1200 129.260 Amount Calcium Gluconate in NaCl 100 1 gm In Saline 1 100ml. bag @ 100 mls/hr IVPB ONCE ONE Rx#:[id number] Norepinephrine 32 mg In 54.260 Sodium Chloride 0.9% 218 ml @ 0.05 MCG/KG/MIN 1. 425 mls/hr IV .Q24H [facility] Rx#:[id number] Phytonadione 5 mg In 100 Sodium Chloride 0.9% 50 ml @ 100 mls/hr IVPB ONCE ONE Rx#:[id number] Sodium Chloride 0.9% 1, 900 75 000 ml @ 75 mls/hr IV . [id number] [facility] Rx#:[id number] levETIRAcetam IV 750 mg 100 In Sodium Chloride 0.9% 100 ml @ 400 mls/hr IVPB ONCE ONE Rx#:[id number] Tube Feeding 0 0 Output: Urine 583 585 Other: Voiding Method Indwelling Catheter Indwelling Catheter ABP, PAP, CO, CI - Last Documented Arterial Blood Pressure 116/56 - Labs CBC & Chem 7: 07/16/21 04:50 07/16/21 04:50 Labs: Abnormal Lab Results - Last 24 Hours (Table) 07/15/21 07/15/21 07/15/21 Range/Units 03:45 03:45 11:53 WBC (3.8-10.6) k/uL RBC (3.80-5.40) m/uL Hgb (11.4-16.0) gm/dL Hct (34.0-46.0) % Plt Count (150-450) k/uL Neutrophils # (1.3-7.7) k/uL Monocytes # (0-1.0) k/uL PT (9.0-12.0) sec INR (<1.2) ABG pO2 (83-108) mmHg ABG O2 Saturation (94-97) % BUN (7-17) mg/dL Creatinine (0.52-1.04) mg/dL POC Glucose (mg/dL) 120 H (75-99) mg/dL Calcium (8.4-10.2) mg/dL Total Bilirubin (0.2-1.3) mg/dL AST (14-36) U/L ALT (4-34) U/L C-Reactive Protein (<1.0) mg/dL Total Protein (6.3-8.2) g/dL Total Protein (PEP) 4.7 L (6.2-8.2) g/dL Albumin (3.5-5.0) g/dL Double Strand DNA Ab Indetermin A (NEGATIVE) Complement C3 20.8 L (80.0-207.0) mg/dL Complement C4 2.0 L (10.0-53.0) mg/dL 07/16/21 07/16/21 07/16/21 Range/Units 04:50 04:50 04:50 WBC 33.0 H (3.8-10.6) k/uL RBC 3.31 L (3.80-5.40) m/uL Hgb 9.7 L (11.4-16.0) gm/dL Hct 29.0 L (34.0-46.0) % Plt Count 147 L (150-450) k/uL Neutrophils # 30.1 H (1.3-7.7) k/uL Monocytes # 1.2 H (0-1.0) k/uL PT 14.3 H (9.0-12.0) sec INR 1.4 H (<1.2) ABG pO2 (83-108) mmHg ABG O2 Saturation (94-97) % BUN 73 H (7-17) mg/dL Creatinine 4.16 H (0.52-1.04) mg/dL POC Glucose (mg/dL) (75-99) mg/dL Calcium 7.9 L (8.4-10.2) mg/dL Total Bilirubin 2.5 H (0.2-1.3) mg/dL AST 522 H (14-36) U/L ALT 889 H (4-34) U/L C-Reactive Protein 20.2 H (<1.0) mg/dL Total Protein 4.9 L (6.3-8.2) g/dL Total Protein (PEP) (6.2-8.2) g/dL Albumin 2.1 L (3.5-5.0) g/dL Double Strand DNA Ab (NEGATIVE) Complement C3 (80.0-207.0) mg/dL Complement C4 (10.0-53.0) mg/dL 07/16/21 Range/Units 05:45 WBC (3.8-10.6) k/uL RBC (3.80-5.40) m/uL Hgb (11.4-16.0) gm/dL Hct (34.0-46.0) % Plt Count (150-450) k/uL Neutrophils # (1.3-7.7) k/uL Monocytes # (0-1.0) k/uL PT (9.0-12.0) sec INR (<1.2) ABG pO2 112 H (83-108) mmHg ABG O2 Saturation 98.1 H (94-97) % BUN (7-17) mg/dL Creatinine (0.52-1.04) mg/dL POC Glucose (mg/dL) (75-99) mg/dL Calcium (8.4-10.2) mg/dL Total Bilirubin (0.2-1.3) mg/dL AST (14-36) U/L ALT (4-34) U/L C-Reactive Protein (<1.0) mg/dL Total Protein (6.3-8.2) g/dL Total Protein (PEP) (6.2-8.2) g/dL Albumin (3.5-5.0) g/dL Double Strand DNA Ab (NEGATIVE) Complement C3 (80.0-207.0) mg/dL Complement C4 (10.0-53.0) mg/dL Microbiology - Last 24 Hours (Table) 07/12/21 21:40 Blood Culture - Preliminary Blood No Growth after 72 hours 07/09/21 16:30 Blood Culture - Final Blood No Growth after 144 hours 07/09/21 16:20 Blood Culture - Final Blood No Growth after 144 hours Assessment and Plan Plan: Assessment: 1. Acute kidney injury secondary to ATN secondary to septic shock. Creatinine was 1.78 at admission and is 4.16 today. Urine output 30-40 mL per hour. Unknown baseline renal function. Noted to be KELLY positive, complements low and double-stranded DNA antibody 8. Hepatitis and ANCA negative. Need to rule out GN. Also component of obstructive uropathy. 2. Septic shock secondary to pneumonia. Status post bronchoscopy. On vasopressor support and antibiotics. 3. Metabolic acidosis secondary to acute kidney injury and lactic acidosis. Resolved. 4. Acute hypoxic respiratory failure secondary to pneumonia. Bronchial washings positive for Heidi. 5. Shock liver. AST and ALT trending down. 6. Hypokalemia from diuresis. Replaced. 7. Hypomagnesemia from diuresis. Replaced. Better. 8. Left-sided hydronephrosis. Urology following. Cystoscopy scheduled for today. Plan: Maintain normal saline at 75 mL an hour. Status post 80 mg IV Lasix given 07/13/2021. Repeat Lasix 80 mg IV once today. Wean FiO2 and vasopressors. Avoid nephrotoxins. Continue to monitor renal function and urine output. Follow-up pending serologies. Check anti-GBM antibody. Repeat UA. Add Solu-Medrol. Consult rheumatology for abnormal serologies. Will consider kidney biopsy once hemodynamically stable. Continue to assess daily for need for renal replacement therapy.
--- NOTE | 2021-07-16 09:39 | CT ---
EXAMINATION TYPE: CT brain wo con DATE OF EXAM: 07/16/2021 HISTORY: bleed CT DLP: 1408.1 mGycm. Automated Exposure Control for Dose Reduction was Utilized. TECHNIQUE: CT scan of the head is performed without contrast. COMPARISON: CT brain from yesterday. FINDINGS: There is a stable 5 mm round hyperdense focus right parietal lobe axial image 37 with onc e again suggestion of surrounding hypodensity. No new acute intracranial hemorrhage. No midline shift . Mild ventricular and sulcal prominence. Mild low-attenuation in the periventricular white matter. M ild mucosal thickening anterior ethmoid sinuses bilaterally. Globes are intact bilaterally. Endotrach eal and orogastric tubes noted on the localizer. IMPRESSION: As above. Right parietal area could reflect focal acute hemorrhagic infarct, I am more haney spicious for hemorrhagic metastatic disease given the surrounding vasogenic edema. Correlate clinical ly. Correlation with old outside CT and/or MRI would be beneficial. No significant change from studie s one day ago.
--- NOTE | 2021-07-16 09:47 | CT ---
EXAMINATION TYPE: CT chest wo con DATE OF EXAM: 07/16/2021 COMPARISON: Chest x-ray 07/16/2021, CT chest 07/09/2021 HISTORY: hypoxemia CT DLP: 1408.1 mGycm. Automated Exposure Control for Dose Reduction was Utilized. TECHNIQUE: CT scan of the thorax is performed without IV contrast. FINDINGS: Lack of contrast may compromise sensitivity. LUNGS: There has been progression in the airspace disease compared to prior CT, dense lung consolidat ion is present in the left upper lobe and left lower lobe, there is been interval development of cons olidation at the right lung base, there are bilateral pleural effusions, some groundglass opacity is noted in the right upper lobe, some underlying emphysematous change is present. Tracheostomy tube is in place. MEDIASTINUM: Lack of IV contrast is noted to limit evaluation for mediastinal and especially hilar ad enopathy. There are no significant changes compared to prior exam. Left atrial enlargement is present , metallic density present along the mitral region, metallic lead is present in the right ventricle, coronary artery calcifications noted, patellar density present at the tricuspid valve level and no ad enopathy. NG tube is present. OTHER: Patient is post median sternotomy. Generator is present in the left pectoral region. IMPRESSION: Worsening pneumonia, congestive heart failure with bilateral pleural effusions not exclud ed. Left subclavian central venous catheter is present, distal tip is within the right atrium
[2021-07-16] MEDS: methylPREDNISolone SOD SUCCI 125 MG/2 ML VIAL IV SCH ×2 (09:49→21:54)
--- NOTE | 2021-07-16 10:15 | XR ---
EXAMINATION TYPE: XR chest 1V portable DATE OF EXAM: 07/16/2021 COMPARISON: Chest x-ray 07/15/2021 HISTORY: Intubated TECHNIQUE: Single frontal view of the chest is obtained. FINDINGS: Endotracheal tube, NG tube, left-sided central venous catheter, pacemaker, post median mansi rnotomy change and cardiac valve replacement are all again noted. There is bibasilar increased attenu ation, consolidation also present in the left mid and upper lung. Deformity of the posterior right ri b present at the C6 level and postop change noted to the posterior right fifth rib. Cardiac mediastin al silhouette is stable, heart is enlarged. IMPRESSION: Correlate for pneumonia, pulmonary edema, findings have worsened in the interval. Basila r effusions.
[2021-07-16] MEDS ORDERED: fentaNYL (PF) 50 MCG/ML 2 ML AMP ONE (11:25)
--- NOTE | 2021-07-16 11:33 | P.PN ---
Subjective Progress Note Date: 07/16/21 Creat is persistently elevated at 4.1, was 1.[address] yesterday showed evidence of mild left hydronephrosis. Discussed with the family her acute kidney injury is most likely multifactorial, but the hydronephrosis on the left could be contributing. Discussed the option of stent insertion given the persistent creatinine elevation. Discussed this extensively with the patient daughter, also discussed this with Dr. Way. Discussed risk of bleeding, infection, and potential of persistent creatinine elevation even with relieving the obstruction. Objective - Vital Signs Vital signs: Vital Signs Temp 99.7 F H 07/16/21 08:00 Pulse 72 07/16/21 10:45 Resp 24 07/16/21 10:45 BP 94/46 07/16/21 10:00 Pulse Ox 99 07/16/21 10:45 Intake & Output 07/15/21 07/16/21 07/16/21 18:59 06:59 18:59 Intake Total 1400 1094.260 300 Output Total 583 585 160 Balance 817 509.260 140 Weight 77.4 kg Intake: IV 200 965 300 .9 kvo 200 865 300 Piperacillin-Tazobactam 3 100 .375 gm In Sodium Chloride 0.9% 100 ml @ 25 mls/hr IVPB Q8HR [facility] Rx# :[id number] Intake, IV Titration 1200 129.260 Amount Calcium Gluconate in NaCl 100 1 gm In Saline 1 100ml. bag @ 100 mls/hr IVPB ONCE ONE Rx#:[id number] Norepinephrine 32 mg In 54.260 Sodium Chloride 0.9% 218 ml @ 0.05 MCG/KG/MIN 1. 425 mls/hr IV .Q24H [facility] Rx#:[id number] Phytonadione 5 mg In 100 Sodium Chloride 0.9% 50 ml @ 100 mls/hr IVPB ONCE ONE Rx#:[id number] Sodium Chloride 0.9% 1, 900 75 000 ml @ 75 mls/hr IV . [id number] [facility] Rx#:[id number] levETIRAcetam IV 750 mg 100 In Sodium Chloride 0.9% 100 ml @ 400 mls/hr IVPB ONCE ONE Rx#:[id number] Tube Feeding 0 0 Output: Urine 583 585 160 Other: Voiding Method Indwelling Catheter Indwelling Catheter Indwelling Catheter ABP, PAP, CO, CI - Last Documented Arterial Blood Pressure 100/48 - Constitutional General appearance: Present: no acute distress - Gastrointestinal General gastrointestinal: Present: soft. Absent: distended - Labs CBC & Chem 7: 07/16/21 04:50 07/16/21 04:50 Labs: Abnormal Lab Results - Last 24 Hours (Table) 07/15/21 07/15/21 07/15/21 Range/Units 03:45 03:45 11:53 WBC (3.8-10.6) k/uL RBC (3.80-5.40) m/uL Hgb (11.4-16.0) gm/dL Hct (34.0-46.0) % Plt Count (150-450) k/uL Neutrophils # (1.3-7.7) k/uL Monocytes # (0-1.0) k/uL PT (9.0-12.0) sec INR (<1.2) ABG pO2 (83-108) mmHg ABG O2 Saturation (94-97) % BUN (7-17) mg/dL Creatinine (0.52-1.04) mg/dL POC Glucose (mg/dL) 120 H (75-99) mg/dL Calcium (8.4-10.2) mg/dL Total Bilirubin (0.2-1.3) mg/dL AST (14-36) U/L ALT (4-34) U/L C-Reactive Protein (<1.0) mg/dL Total Protein (6.3-8.2) g/dL Total Protein (PEP) 4.7 L (6.2-8.2) g/dL Albumin (3.5-5.0) g/dL Procalcitonin (0.02-0.09) ng/mL Double Strand DNA Ab Indetermin A (NEGATIVE) Complement C3 20.8 L (80.0-207.0) mg/dL Complement C4 2.0 L (10.0-53.0) mg/dL 07/16/21 07/16/21 07/16/21 Range/Units 04:50 04:50 04:50 WBC 33.0 H (3.8-10.6) k/uL RBC 3.31 L (3.80-5.40) m/uL Hgb 9.7 L (11.4-16.0) gm/dL Hct 29.0 L (34.0-46.0) % Plt Count 147 L (150-450) k/uL Neutrophils # 30.1 H (1.3-7.7) k/uL Monocytes # 1.2 H (0-1.0) k/uL PT (9.0-12.0) sec INR (<1.2) ABG pO2 (83-108) mmHg ABG O2 Saturation (94-97) % BUN 73 H (7-17) mg/dL Creatinine 4.16 H (0.52-1.04) mg/dL POC Glucose (mg/dL) (75-99) mg/dL Calcium 7.9 L (8.4-10.2) mg/dL Total Bilirubin 2.5 H (0.2-1.3) mg/dL AST 522 H (14-36) U/L ALT 889 H (4-34) U/L C-Reactive Protein 20.2 H (<1.0) mg/dL Total Protein 4.9 L (6.3-8.2) g/dL Total Protein (PEP) (6.2-8.2) g/dL Albumin 2.1 L (3.5-5.0) g/dL Procalcitonin 15.30 H (0.02-0.09) ng/mL Double Strand DNA Ab (NEGATIVE) Complement C3 (80.0-207.0) mg/dL Complement C4 (10.0-53.0) mg/dL 07/16/21 07/16/21 Range/Units 04:50 05:45 WBC (3.8-10.6) k/uL RBC (3.80-5.40) m/uL Hgb (11.4-16.0) gm/dL Hct (34.0-46.0) % Plt Count (150-450) k/uL Neutrophils # (1.3-7.7) k/uL Monocytes # (0-1.0) k/uL PT 14.3 H (9.0-12.0) sec INR 1.4 H (<1.2) ABG pO2 112 H (83-108) mmHg ABG O2 Saturation 98.1 H (94-97) % BUN (7-17) mg/dL Creatinine (0.52-1.04) mg/dL POC Glucose (mg/dL) (75-99) mg/dL Calcium (8.4-10.2) mg/dL Total Bilirubin (0.2-1.3) mg/dL AST (14-36) U/L ALT (4-34) U/L C-Reactive Protein (<1.0) mg/dL Total Protein (6.3-8.2) g/dL Total Protein (PEP) (6.2-8.2) g/dL Albumin (3.5-5.0) g/dL Procalcitonin (0.02-0.09) ng/mL Double Strand DNA Ab (NEGATIVE) Complement C3 (80.0-207.0) mg/dL Complement C4 (10.0-53.0) mg/dL Microbiology - Last 24 Hours (Table) 07/12/21 21:40 Blood Culture - Preliminary Blood No Growth after 72 hours 07/09/21 16:30 Blood Culture - Final Blood No Growth after 144 hours 07/09/21 16:20 Blood Culture - Final Blood No Growth after 144 hours Assessment and Plan Assessment: 71-year-old female admitted to the hospital with sepsis secondary to pneumonia, and acute kidney injury. Creatinine is 4.1 on admission was 1.78. Baseline is unknown. CT showed left-sided hydronephrosis, discussed with the family her acute kidney injury is most likely multifactorial, but the hydronephrosis on the left could be contributing. Discussed the option of stent insertion given the persistent creatinine elevation. Discussed this extensively with the patient daughter, also discussed this with Dr. Way. Discussed risk of bleeding, infection, and potential of persistent creatinine elevation even with relieving the obstruction. -OR for cystoscopy and left stent insertion
[2021-07-16] MEDS ORDERED: IOPAMIDOL-370 50ML BTL MISCELLANE ONE (11:46)
--- NOTE | 2021-07-16 11:54 | P.PN ---
Subjective Progress Note Date: 07/16/21 The patient is seen at bedside and per nurse she is about the same. She has been off sedation for about 48 hours. Patient had two repeated CT head and no change in her bleed size. Objective - Vital Signs Vital signs: Vital Signs Temp 99.7 F H 07/16/21 08:00 Pulse 72 07/16/21 11:15 Resp 24 07/16/21 11:15 BP 96/45 07/16/21 11:00 Pulse Ox 98 07/16/21 11:15 Intake & Output 07/15/21 07/16/21 07/16/21 18:59 06:59 18:59 Intake Total 1400 1094.260 300 Output Total 583 585 160 Balance 817 509.260 140 Weight 77.4 kg Intake: IV 200 965 300 .9 kvo 200 865 300 Piperacillin-Tazobactam 3 100 .375 gm In Sodium Chloride 0.9% 100 ml @ 25 mls/hr IVPB Q8HR [facility] Rx# :[id number] Intake, IV Titration 1200 129.260 Amount Calcium Gluconate in NaCl 100 1 gm In Saline 1 100ml. bag @ 100 mls/hr IVPB ONCE ONE Rx#:[id number] Norepinephrine 32 mg In 54.260 Sodium Chloride 0.9% 218 ml @ 0.05 MCG/KG/MIN 1. 425 mls/hr IV .Q24H [facility] Rx#:[id number] Phytonadione 5 mg In 100 Sodium Chloride 0.9% 50 ml @ 100 mls/hr IVPB ONCE ONE Rx#:[id number] Sodium Chloride 0.9% 1, 900 75 000 ml @ 75 mls/hr IV . [id number] [facility] Rx#:[id number] levETIRAcetam IV 750 mg 100 In Sodium Chloride 0.9% 100 ml @ 400 mls/hr IVPB ONCE ONE Rx#:[id number] Tube Feeding 0 0 Output: Urine 583 585 160 Other: Voiding Method Indwelling Catheter Indwelling Catheter Indwelling Catheter ABP, PAP, CO, CI - Last Documented Arterial Blood Pressure 94/46 - Exam GENERAL: The patient is lying in bed and does not appear in acute distress. HENT: Supple neck. LUNG: Clear to auscultation bilaterally no wheezing noted throughout. Not labored breathing. Intubated on ventilator. NEUROLOGICAL: Limited because of her condition. Has been off sedation for 48 hours. Higher mental function: The patient is comatose. GCS 3 (E1, VT1, M1). Cranial nerves: I had to manually open her eyes. Primary gaze is midline. The pupils are round, equal, about 4-5mm bilaterally and reactive to light. No facial weakness. Positive gag/cough reflex. Is breathing over the vent. Motor: The strength is limited but no movement noted to painful stimuli throughout. No spontaneous movement noted. Cerebellum: Unable to assess. Sensation: Unable to assess light touch but to painful stimuli not withdrawing or no reaction to it. Reflexes (right/left): 1+ throughout. Plantars are mute bilaterally. SOME OF THE WORK-UP: Ammonia level <9 Creatning on initial presentation is 1.78-->4.16 AST: 23-->400-->522 ALT 9-->1800-->889 KELLY is positive Double strand DNA ab Indeterminate, complement C3: 20 and c4:2.0 C-ANCA and P-ANCA CT of the head was ordered by the ICU team and it's reported as left parietal area could reflect focal acute hemorrhagic infarct, I see more suspicious for hemorrhagic metastasis disease given the surrounding vasogenic edema. Correlate clinically. Correlation with old outside CT and/or MRI would be beneficial. I personally reviewed the CT of the head and the patient had a small focal right hemorrhage on the parietal. She had two repeated CT head at 8pm on 07/15/2021 and today around 9ish am and no change. EEG on 07/16/2021: This is an abnormal routine EEG. The background slowing is suggestive of severe encephalopathy. The triphasic wave are suggestive of likely toxic-metabolic etiology. Otherwise there is no focal slowing, epileptiform discharge or seizure on the EEG. - Labs CBC & Chem 7: 07/16/21 04:50 07/16/21 04:50 Labs: Abnormal Lab Results - Last 24 Hours (Table) 07/15/21 07/15/21 07/15/21 Range/Units 03:45 03:45 11:53 WBC (3.8-10.6) k/uL RBC (3.80-5.40) m/uL Hgb (11.4-16.0) gm/dL Hct (34.0-46.0) % Plt Count (150-450) k/uL Neutrophils # (1.3-7.7) k/uL Monocytes # (0-1.0) k/uL PT (9.0-12.0) sec INR (<1.2) ABG pO2 (83-108) mmHg ABG O2 Saturation (94-97) % BUN (7-17) mg/dL Creatinine (0.52-1.04) mg/dL POC Glucose (mg/dL) 120 H (75-99) mg/dL Calcium (8.4-10.2) mg/dL Total Bilirubin (0.2-1.3) mg/dL AST (14-36) U/L ALT (4-34) U/L C-Reactive Protein (<1.0) mg/dL Total Protein (6.3-8.2) g/dL Total Protein (PEP) 4.7 L (6.2-8.2) g/dL Albumin (3.5-5.0) g/dL Procalcitonin (0.02-0.09) ng/mL Double Strand DNA Ab Indetermin A (NEGATIVE) Complement C3 20.8 L (80.0-207.0) mg/dL Complement C4 2.0 L (10.0-53.0) mg/dL 07/16/21 07/16/21 07/16/21 Range/Units 04:50 04:50 04:50 WBC 33.0 H (3.8-10.6) k/uL RBC 3.31 L (3.80-5.40) m/uL Hgb 9.7 L (11.4-16.0) gm/dL Hct 29.0 L (34.0-46.0) % Plt Count 147 L (150-450) k/uL Neutrophils # 30.1 H (1.3-7.7) k/uL Monocytes # 1.2 H (0-1.0) k/uL PT (9.0-12.0) sec INR (<1.2) ABG pO2 (83-108) mmHg ABG O2 Saturation (94-97) % BUN 73 H (7-17) mg/dL Creatinine 4.16 H (0.52-1.04) mg/dL POC Glucose (mg/dL) (75-99) mg/dL Calcium 7.9 L (8.4-10.2) mg/dL Total Bilirubin 2.5 H (0.2-1.3) mg/dL AST 522 H (14-36) U/L ALT 889 H (4-34) U/L C-Reactive Protein 20.2 H (<1.0) mg/dL Total Protein 4.9 L (6.3-8.2) g/dL Total Protein (PEP) (6.2-8.2) g/dL Albumin 2.1 L (3.5-5.0) g/dL Procalcitonin 15.30 H (0.02-0.09) ng/mL Double Strand DNA Ab (NEGATIVE) Complement C3 (80.0-207.0) mg/dL Complement C4 (10.0-53.0) mg/dL 07/16/21 07/16/21 Range/Units 04:50 05:45 WBC (3.8-10.6) k/uL RBC (3.80-5.40) m/uL Hgb (11.4-16.0) gm/dL Hct (34.0-46.0) % Plt Count (150-450) k/uL Neutrophils # (1.3-7.7) k/uL Monocytes # (0-1.0) k/uL PT 14.3 H (9.0-12.0) sec INR 1.4 H (<1.2) ABG pO2 112 H (83-108) mmHg ABG O2 Saturation 98.1 H (94-97) % BUN (7-17) mg/dL Creatinine (0.52-1.04) mg/dL POC Glucose (mg/dL) (75-99) mg/dL Calcium (8.4-10.2) mg/dL Total Bilirubin (0.2-1.3) mg/dL AST (14-36) U/L ALT (4-34) U/L C-Reactive Protein (<1.0) mg/dL Total Protein (6.3-8.2) g/dL Total Protein (PEP) (6.2-8.2) g/dL Albumin (3.5-5.0) g/dL Procalcitonin (0.02-0.09) ng/mL Double Strand DNA Ab (NEGATIVE) Complement C3 (80.0-207.0) mg/dL Complement C4 (10.0-53.0) mg/dL Microbiology - Last 24 Hours (Table) 07/12/21 21:40 Blood Culture - Preliminary Blood No Growth after 72 hours 07/09/21 16:30 Blood Culture - Final Blood No Growth after 144 hours 07/09/21 16:20 Blood Culture - Final Blood No Growth after 144 hours Assessment and Plan Assessment: Acute small Hemorrhagic stroke over the right parietal: Unsure cause. Possibly could be due to episode of supratherapeutic INR (was as steve as 6.4 that she received reversal on 07/13 and currently 1.5). Cannot rule out processes hemorrhagic metastasis but seems unlikely since only lesion.---stable. Altered mental status due to multifactorial: Septic encephalopathy, metabolic encephalopathy. Septic shock with multisystem organ failure on pressor. She had positive KELLY, low C3 and C4 complement with indeterminate antidsDNA: Rule out Lupus. Acute kidney injury trending up Acute hypoxic respiratory failure due to left lung pneumonia indicating Heidi albicans Acute shock liver--trending down Electrolyte abnormality: Hypocalcemia Acute Coumadin toxicity that received reversal improved and INR is subtherapeutic History of coronary artery disease status post the CABG s/p Pacemaker on coumadin Valvular heart surgery Hypertension Hyperlipidemia Plan: I will consider repeat CT head in next day or two to assess any change of pa tient hemorrhage. Cannot obtain MRA of the head since the patient is intubated on a ventilator. Cannot obtain CTA of the head as well to rule out any aneurysm or arterial/venous malformation because of her kidney function. Will get repeat EEG today. Continue Keppra 500mg IV every 12 hours as seizure prophylaxis. Coumadin is held and I recommend that she remain on hold for now. Avoid any antiplatelets or anticoagulation because of acute bleed Every hour neuro checks Nephrology team is on board Rheumatology is consulted. I.D. is on board I'll defer the rest of the medical management to the primary and ICU team Patient condition is critical. The plan was discussed with the patient's nurse. Tremaine Mcguire M.D. Neuro-hospitalist Time with Patient: Less than 30
[2021-07-16 12:28] LABS: Glucose,Whole Blood 96 mg/dL (75-99)
--- NOTE | 2021-07-16 12:38 | P.OP ---
Date of Procedure: 07/16/21 Preoperative Diagnosis: Left hydronephrosis Postoperative Diagnosis: Same Procedure(s) Performed: Cystoscopy, left retrograde pyelogram and stent insertion Implants: 6-Spanish by 24 cm stent in the left ureter Anesthesia: ADAMA Surgeon: Abhinav Sorensen Pathology: none sent Condition: stable Disposition: PACU Indications for Procedure: 71-year-old female admitted to the hospital with sepsis secondary to pneumonia, and acute kidney injury. Creatinine is 4.1 on admission was 1.78. Baseline is unknown. CT showed left-sided hydronephrosis, discussed with the family her acute kidney injury is most likely multifactorial, but the hydronephrosis on the left could be contributing. Discussed the option of stent insertion given the persistent creatinine elevation. Discussed this extensively with the patient daughter, also discussed this with Dr. Way. Discussed risk of bleeding, infection, and potential of persistent creatinine elevation even with relieving the obstruction. Description of Procedure: Patient was brought to the operating room, she was prepped and draped in sterile fashion a placement dorsal lithotomy position. Cystoscopy fitted with a 22- Spanish sheath was inserted per urethra, cystoscopy was performed showed no abnormality within the bladder. Attention was then carried to the left ureteral orifice which was intubated with an open-ended catheter, retrograde pyelogram was performed which showed no filling defect, but there was a focal narrowing in the proximal ureter with moderate hydroureteronephrosis proximal to that. Next a sensor wire was advanced through the catheter and the catheter was removed with the wire in place. Next ureteral stent was passed over the wire, the proximal curl was visualized on fluoroscopy and distal curl was visualized using cystoscope. The bladder was emptied at the end of the case. A 16-Spanish Siegel catheter was placed with return of clear urine. Patient tolerated procedure well was taken back to ICU in stable condition
--- NOTE | 2021-07-16 12:47 | FL ---
Fluoroscopy HISTORY: Renal failure 17 seconds fluoroscopy time supplied to the referring clinician. 4 intraoperative C-arm images docum ent the procedure. See dictated report from urology.
[2021-07-16] MEDS: SODIUM CHLORIDE 0.9% 1,000 ML IV SCH (12:48)
--- NOTE | 2021-07-16 13:13 | P.CONS ---
History of Present Illness - Reason for Consult Consult date: 07/16/21 - History of Present Illness This is a inpatient consult for a 71-year-old female currently in the intensive care unit. She was referred by nephrology Dr. Gannon for possible lupus. She was first seen in the emergency room on 07/09/21 as a transfer of care from [place] with pneumonia. Also of note, she had pacemaker revised 6 weeks ago at [facility] and was discharged home on antibiotics. She then became more and more lethargic and was admitted for severe lower lobe pneumonia. She also has history of COPD and congestive heart failure. Infectious disease, cardiology, pulmonary, and nephrology are all following closely. It looks like nephrology ordered serum antibody testing due to acute kidney injury with worsening kidneyfunction. Patient is currently intubated and on vasopressor support. Chest x-ray 07/16/21: Bibasilar increased attenuation with consolidation. Correlate for pneumonia, pulmonary edema, findings have worsened in the interval. Basilar effusions. Labs revealed a positive KELLY, negative ANCA, positive double-stranded DNA, low C3 of 20, low C4 of 2. Her WBC count is elevated at 33. She has low hemoglobin 9.7, low RBC 3.31, low platelet 147. Her C-reactive protein elevated at 20.2. Microscopic urinalysis showed trace protein with moderate blood and high RBC 13. Normal urine protein creatinine ratio. Her creatinine has increased significantly as it was 1.78 at admission and is 4.16 today. It is unknown her baseline renal function. Her hepatitis and ANCA were negative. Dr. Gannon wrote that she is suffering from acute kidney injury secondary to ATN secondary to septic shock. He ordered Solu-Medrol and consulted rheumatology. He wrote that kidney biopsy would be considered once hemodynamically stable. Patient examined at bedside. She does not have any obvious synovitis but does show dependent edema in bilateral hands and knees. She has no rashes. I spoke with Dr. Tim and patient does meet criteria for diagnosis of systemic lupus erythematosus. We recommend continued use of Solu-Medrol for now and patient will eventually require outpatient treatment once stabilized. Past Medical History Past Medical History: COPD History of Any Multi-Drug Resistant Organisms: None Reported Past Surgical History: Cardiac Valve Replacement, Heart Catheterization, Pacemaker Past Anesthesia/Blood Transfusion Reactions: No Reported Reaction Type of Cardiac Device: Permanent Pacemaker, AICD Device Placement Date:: may 2021 Past Psychological History: No Psychological Hx Reported Smoking Status: Former smoker - Past Family History Mother Family Medical History: Myocardial Infarction (MS) Father Family Medical History: Myocardial Infarction (MS) Medications and Allergies Home Medications Medication Instructions Recorded Confirmed Type ALPRAZolam [Xanax] 1 mg PO TID PRN 07/09/21 07/09/21 History Beets Supplement 500mg 500 mg PO DAILY 07/09/21 07/09/21 History Cholecalciferol [Vitamin D3 (25 25 mcg PO DAILY 07/09/21 07/09/21 History Mcg = 1000 Iu)] Collagen + Biotin 1 cap PO DAILY 07/09/21 07/09/21 History Cyanocobalamin [Vitamin B-12] 500 mcg PO DAILY 07/09/21 07/09/21 History Ferrous Gluconate 324 mg PO DAILY 07/09/21 07/09/21 History Furosemide [Lasix] 40 mg PO DAILY 07/09/21 07/09/21 History HYDROcodone/APAP 10-325MG [[place] 1 tab PO QID PRN 07/09/21 07/09/21 History 10-325] Hydroxychloroquine Sulfate 200 mg PO DAILY 07/09/21 07/09/21 History [Plaquenil] Losartan [Cozaar] 50 mg PO DAILY 07/09/21 07/09/21 History Simvastatin [Zocor] 20 mg PO DAILY 07/09/21 07/09/21 History Spironolactone [Aldactone] 25 mg PO DAILY 07/09/21 07/09/21 History Torsemide [Demadex] 20 mg PO DAILY 07/09/21 07/09/21 History Warfarin [Coumadin] 2 mg PO DAILY 07/09/21 07/09/21 History Zolpidem [Ambien] 10 mg PO HS 07/09/21 07/09/21 History guaiFENesin-Coden 100-10MG/5ML 5 ml PO TID PRN 07/09/21 07/09/21 History [Robitussin AC] minoxidiL 1.25 mg PO DAILY 07/09/21 07/09/21 History Allergies Allergy/AdvReac Type Severity Reaction Status Date / Time SURGICAL TAPE Allergy BLISTERS Uncoded 07/09/21 16:05 Physical Exam Vitals: Vital Signs Temp Pulse Resp BP Pulse Ox 07/16/21 12:15 97.9 F 72 24 111/64 99 07/16/21 11:15 72 24 98 07/16/21 11:00 72 24 96/45 98 07/16/21 10:45 72 24 99 07/16/21 10:30 72 24 98 07/16/21 10:15 72 24 97 07/16/21 10:00 72 24 94/46 97 07/16/21 09:45 72 24 94/46 96 07/16/21 09:00 72 24 94/46 98 07/16/21 08:45 72 24 92 L 07/16/21 08:33 74 24 07/16/21 08:30 72 24 94 L 07/16/21 08:22 72 24 07/16/21 08:15 73 24 95 07/16/21 08:00 99.7 F H 72 24 98/52 96 07/16/21 07:45 72 24 98 07/16/21 07:30 73 24 97 07/16/21 07:15 72 24 97 07/16/21 07:00 72 24 106/59 98 07/16/21 06:45 72 24 98 07/16/21 06:30 72 24 98 07/16/21 06:15 72 24 98 07/16/21 06:00 72 24 106/59 98 07/16/21 05:45 73 24 98 07/16/21 05:30 72 24 98 07/16/21 05:15 73 24 96 07/16/21 05:00 72 24 95 07/16/21 04:45 73 24 96 07/16/21 04:30 73 24 97 07/16/21 04:21 72 07/16/21 04:15 73 24 100/51 97 07/16/21 04:11 72 07/16/21 04:00 98.1 F 72 24 96 07/16/21 03:45 72 24 97 07/16/21 03:30 72 24 96 07/16/21 03:15 72 24 104/60 96 07/16/21 03:00 72 24 97 07/16/21 02:45 72 24 99 07/16/21 02:30 72 24 99 07/16/21 02:15 72 24 104/60 99 07/16/21 02:00 72 24 99 07/16/21 01:45 72 24 99 07/16/21 01:30 73 24 98 07/16/21 01:15 72 24 96 07/16/21 01:00 71 24 109/63 96 07/16/21 00:45 73 24 96 07/16/21 00:30 98.0 F 72 24 97 07/16/21 00:15 72 24 109/63 97 07/16/21 00:14 73 07/16/21 00:03 72 07/16/21 00:00 72 24 96 07/15/21 23:45 72 24 96 07/15/21 23:30 72 24 96 07/15/21 23:15 71 24 98/56 96 07/15/21 23:00 72 24 96 07/15/21 22:45 72 24 96 07/15/21 22:30 73 24 96 07/15/21 22:15 73 24 98/56 96 07/15/21 22:00 72 24 96 07/15/21 21:45 73 24 97 07/15/21 21:30 72 24 98 07/15/21 21:15 72 24 84/49 97 07/15/21 21:00 97.6 F 72 24 97 07/15/21 20:45 72 24 96 07/15/21 20:02 72 07/15/21 20:00 24 97 07/15/21 19:57 73 07/15/21 19:45 72 24 96 07/15/21 19:30 72 24 96 07/15/21 19:15 72 24 96/56 95 07/15/21 19:00 72 24 96/56 96 07/15/21 18:45 71 24 95 07/15/21 18:30 72 24 95 07/15/21 18:15 73 24 96 07/15/21 18:00 72 24 07/15/21 17:45 72 24 95 07/15/21 17:30 72 24 95 07/15/21 17:15 72 24 92/56 95 07/15/21 17:00 73 24 95 07/15/21 16:45 72 24 95 07/15/21 16:30 72 24 90/53 97 07/15/21 16:15 72 24 90/53 98 07/15/21 16:00 97.7 F 72 24 97 07/15/21 15:45 72 24 98 07/15/21 15:30 72 24 98 07/15/21 15:15 72 24 98 07/15/21 15:00 72 24 98 07/15/21 14:45 72 24 98 07/15/21 14:30 72 24 98 07/15/21 14:15 73 24 104/59 99 07/15/21 14:00 72 24 98 07/15/21 13:45 73 24 97 07/15/21 13:30 72 24 98 07/15/21 13:15 72 24 97 Intake and Output 07/15/21 07/16/21 07/16/21 22:59 06:59 14:59 Intake Total 1092.596 681.664 375 Output Total 394 345 220 Balance 698.596 336.664 155 Intake: IV 370 675 375 .9 kvo 270 675 375 Piperacillin-Tazobactam 3 100 .375 gm In Sodium Chloride 0.9% 100 ml @ 25 mls/hr IVPB Q8HR [facility] Rx# :[id number] Intake, IV Titration 722.596 6.664 Amount Calcium Gluconate in NaCl 100 1 gm In Saline 1 100ml. bag @ 100 mls/hr IVPB ONCE ONE Rx#:[id number] Norepinephrine 32 mg In 47.596 6.664 Sodium Chloride 0.9% 218 ml @ 0.05 MCG/KG/MIN 1. 425 mls/hr IV .Q24H [facility] Rx#:[id number] Phytonadione 5 mg In 100 Sodium Chloride 0.9% 50 ml @ 100 mls/hr IVPB ONCE ONE Rx#:[id number] Sodium Chloride 0.9% 1, 375 000 ml @ 75 mls/hr IV . [id number] [facility] Rx#:[id number] levETIRAcetam IV 750 mg 100 In Sodium Chloride 0.9% 100 ml @ 400 mls/hr IVPB ONCE ONE Rx#:[id number] Tube Feeding 0 Output: Urine 394 345 220 Estimated Blood Loss 0 Other: Voiding Method Indwelling Catheter Indwelling Catheter Indwelling Catheter Weight 77.4 kg ABP, PAP, CO, CI - Last 8 Hours Arterial Blood Pressure 117/63 Arterial Blood Pressure 94/46 Arterial Blood Pressure 96/47 Arterial Blood Pressure 100/48 Arterial Blood Pressure 102/49 Arterial Blood Pressure 100/46 Arterial Blood Pressure 103/47 Arterial Blood Pressure 85/49 Arterial Blood Pressure 106/52 Arterial Blood Pressure 105/51 Arterial Blood Pressure 100/49 Arterial Blood Pressure 116/56 Arterial Blood Pressure 108/51 Arterial Blood Pressure 114/54 Arterial Blood Pressure 114/54 Arterial Blood Pressure 123/59 Arterial Blood Pressure 124/60 Arterial Blood Pressure 123/59 Arterial Blood Pressure 126/60 Arterial Blood Pressure 122/59 Arterial Blood Pressure 123/59 Arterial Blood Pressure 118/56 Arterial Blood Pressure 120/58 Arterial Blood Pressure 113/52 Results CBC & Chem 7: 07/16/21 04:50 07/16/21 04:50 Labs: Abnormal Lab Results - Last 24 Hours (Table) 07/15/21 07/15/21 07/16/21 Range/Units 03:45 03:45 04:50 WBC (3.8-10.6) k/uL RBC (3.80-5.40) m/uL Hgb (11.4-16.0) gm/dL Hct (34.0-46.0) % Plt Count (150-450) k/uL Neutrophils # (1.3-7.7) k/uL Monocytes # (0-1.0) k/uL PT (9.0-12.0) sec INR (<1.2) ABG pO2 (83-108) mmHg ABG O2 Saturation (94-97) % BUN (7-17) mg/dL Creatinine (0.52-1.04) mg/dL Calcium (8.4-10.2) mg/dL Total Bilirubin (0.2-1.3) mg/dL AST (14-36) U/L ALT (4-34) U/L C-Reactive Protein (<1.0) mg/dL Total Protein (6.3-8.2) g/dL Total Protein (PEP) 4.7 L (6.2-8.2) g/dL Albumin (3.5-5.0) g/dL Procalcitonin 15.30 H (0.02-0.09) ng/mL Double Strand DNA Ab Indetermin A (NEGATIVE) Complement C3 20.8 L (80.0-207.0) mg/dL Complement C4 2.0 L (10.0-53.0) mg/dL 07/16/21 07/16/21 07/16/21 Range/Units 04:50 04:50 04:50 WBC 33.0 H (3.8-10.6) k/uL RBC 3.31 L (3.80-5.40) m/uL Hgb 9.7 L (11.4-16.0) gm/dL Hct 29.0 L (34.0-46.0) % Plt Count 147 L (150-450) k/uL Neutrophils # 30.1 H (1.3-7.7) k/uL Monocytes # 1.2 H (0-1.0) k/uL PT 14.3 H (9.0-12.0) sec INR 1.4 H (<1.2) ABG pO2 (83-108) mmHg ABG O2 Saturation (94-97) % BUN 73 H (7-17) mg/dL Creatinine 4.16 H (0.52-1.04) mg/dL Calcium 7.9 L (8.4-10.2) mg/dL Total Bilirubin 2.5 H (0.2-1.3) mg/dL AST 522 H (14-36) U/L ALT 889 H (4-34) U/L C-Reactive Protein 20.2 H (<1.0) mg/dL Total Protein 4.9 L (6.3-8.2) g/dL Total Protein (PEP) (6.2-8.2) g/dL Albumin 2.1 L (3.5-5.0) g/dL Procalcitonin (0.02-0.09) ng/mL Double Strand DNA Ab (NEGATIVE) Complement C3 (80.0-207.0) mg/dL Complement C4 (10.0-53.0) mg/dL 07/16/21 Range/Units 05:45 WBC (3.8-10.6) k/uL RBC (3.80-5.40) m/uL Hgb (11.4-16.0) gm/dL Hct (34.0-46.0) % Plt Count (150-450) k/uL Neutrophils # (1.3-7.7) k/uL Monocytes # (0-1.0) k/uL PT (9.0-12.0) sec INR (<1.2) ABG pO2 112 H (83-108) mmHg ABG O2 Saturation 98.1 H (94-97) % BUN (7-17) mg/dL Creatinine (0.52-1.04) mg/dL Calcium (8.4-10.2) mg/dL Total Bilirubin (0.2-1.3) mg/dL AST (14-36) U/L ALT (4-34) U/L C-Reactive Protein (<1.0) mg/dL Total Protein (6.3-8.2) g/dL Total Protein (PEP) (6.2-8.2) g/dL Albumin (3.5-5.0) g/dL Procalcitonin (0.02-0.09) ng/mL Double Strand DNA Ab (NEGATIVE) Complement C3 (80.0-207.0) mg/dL Complement C4 (10.0-53.0) mg/dL Microbiology - Last 24 Hours (Table) 07/12/21 21:40 Blood Culture - Preliminary Blood No Growth after 72 hours 07/09/21 16:30 Blood Culture - Final Blood No Growth after 144 hours 07/09/21 16:20 Blood Culture - Final Blood No Growth after 144 hours
--- NOTE | 2021-07-16 13:25 | P.PN ---
Subjective Progress Note Date: 07/16/21 On 07/13/2021, the patient is being seen in intensive care unit for acute hypoxic respiratory failure/pneumonia/sepsis. The patient is a 69-year-old female who was seen in [facility] for some increased cough and congestion and hypoxemia. The patient subsequently decompensated. The patient went on a BiPAP and at a later stage, the patient had to be intubated and placed on a mechanical ventilator. The patient is known to have CAD, coronary artery bypass, and a previous history of pacemaker insertion. For now, the patient is being treated for a pneumonia and acute hypoxic respiratory failure. The patient had essentially a left lung pneumonia and the chest x-ray was showing extensive consolidation of the left lung for which the patient underwent a bronchoscopy and the bronchioloalveolar lavage of the left lung and there is also consistent with Heidi. The patient is currently covered with accommodation IV Zosyn and IV Eraxis. Meanwhile, the patient had a negative COVID 19 testing, blood culture was negative, and the patient remains sedated on top of for which is running at 20 mcg/kg per minute. The patient is on a combination of pressors and the patient is currently on physiologic dose of vasopressin at 0.03 units per minute and the patient is also on norepinephrine 0.83 mcg/kg per minute. Cardiac rhythm is paced with occasional PVCs. The patient is on a mechanical ventilator on assist control mode at a rate of 24 with a tidal volume of 400 and FiO2 of 50% with a PEEP of 10. The blood gases from today showed a pH of 7.26 with a pCO2 of 36 and pO2 of 146. The chest x- ray is showing some limited improvement in the left lung consolidation. The patient is still febrile and the patient is running a temperature of 100.2 this morning. In terms of blood work, the white cell count is on the rise and currently is up to 25.4 and hemoglobin is at 10.1 with a platelet count of 270. The patient has a acute kidney injury. Creatinine is up to 3.8 with a BUN of 53 and a sodium level of 140. Serum bicarbonate 16. The patient did have also a shock liver yesterday and the AST was 4763 with an ALT of 1213. The echo of the heart showed mild concentric LVH with mild aortic stenosis otherwise negative. Furthermore, the patient is admitted on long-term and to coagulation with warfarin. There is regarding his underlying atrial fibrillation. INR today is at 6.4.the patient has a left IJ triple lumen catheter in place. The patient also has a right radial arterial line. Urine output has been in the order of 20 mL over the past 8 hours. 07/14/2021, seeing the patient for a follow-up. The patient remains intubated on a mechanical ventilator. On today's evaluation, the patient remains on propofol which is running at 5 mcg/kg per minute. The propofol is being gradually weaned off an underlying mental status will be evaluated. Note that the patient has shown some signs of improvement over the past 24 hours. The pressors requirements are less compared to yesterday. This morning, the norepinephrine is running at 0.12 mics of respiratory kilo Per minute and the vasopressin remains in the physiologic dose. At the same time, the patient shows improvement in the shock liver and improvement in the acute kidney injury. In terms of ventilator support, the patient remains on assist control mode of mechanical ventilation at the rate of 24 with a tidal volume of 400 and a rate of 24 with an FiO2 of 40% and a PEEP of 8. The blood gases showed a pH of 7.45 with a pCO2 of 39 and pO2 of 74. The patient is on normal saline and the bicarb infusion has been discontinued by nephrology. Normal saline is running at the rate of 75 mL an hour. The patient was admitted to 23 with hemoglobin of 9.8 and the patient has a platelet count of 207. BUN is down to 61 with a creatinine of 3.98. Urine output is improved over the past 24 hours and overall fluid balance is impossible for 2 L over the past 24 hours. Antibiotic coverage remains a combination of IV Zosyn and IV Diflucan. No new cultures are available. The cultures from the sputum and the bronchioloalveolar lavage came back positive for Heidi albicans. On a separate note, The patient was given no Coumadin and the patient's INR is down to 2.5. The chest x-ray findings are essentially unchanged and the patient continues to have CHF, pacemaker on the left, triple-lumen catheter is in a good location and there is no evidence of any pneumothorax. The patient continues to have a left lower lobe and lingular consolidation. The ultrasound of the abdomen showed hydropic gallbladder, cholelithiasis was incidentally noted. Small amount of ascites was present. Bladder was within normal limits. The 2 feeds are currently on hold as the patient was having increased residuals. 07/15/2021, patient is being seen for a follow-up. This morning, the patient is off propofol and the patient has been off propofol since 10:00 yesterday morning. She is very sluggish. They're responsive to any painful stimulation. No seizure activity. At times she blinks and at times she withdraws to deep painful stimulation. As such, a CAT scan of the brain will be needed. at the same time, the patient remains on mechanical ventilator and today the patient is an assist-control mode rate of 24, tidal volume of 400, FiO2 of 40% with a PEEP of 8. The blood gas showed a pH of 7.42 with a pCO2 of 39 and pO2 of 124. The chest x-ray from today shows a pacemaker on the left. The patient has airspace disease present bilaterally. The patient has ongoing bilateral pulmonary infiltrates, interstitial edema/pulmonary edema. The patient remains on IV fluids with normal saline at the rate of 50 mL an hour. The patient is still on vasopressin physiologic dose and the patient is also on norepinephrine at 0.04 microvascular kilogram per minute. The LFTs continued to improve as the patient had developed shock liver. Therefore she continues to be impaired with a cath in of 3.92. Overall fluid balance has been +1.2 L over the past 24 hours. The patient remains in atrial fibrillation. INR is down to 1.2. Rest of the blood work shows a sodium level of 141, BUN of 66 with a creatinine of 3.9. The white cell count is 29 with a hemoglobin of 10.4. Meanwhile, the patient remains on Diflucan and IV Zosyn per IDs recommendation. 07/16 2021, patient is being seen for a follow-up. The patient remains in the intensive care unit. The patient remains off propofol and the patient off propofol for the past 48 hours. She is grimacing only to deep painful stimulation. She is not responsive and she's not awake and she's noncommunicating at this point in time. She withdraws in her extremities for deep painful elevation. Note that the patient underwent a computed tomography scan of the brain yesterday and the patient was found to haveA right parietal area focal hemorrhagic infarct and 7 CAT scan of the brain were done, to yesterday and 1 today which showed no significant change in the size of this abnormality. Based on the radiologist's interpretation, the findings suspicious for hemorrhagic metastatic disease knowing that there was some vasogenic edema surrounding the abdomen 5 mm focus in the right parietal lobe. Neurologist on the case and the patient was orally started on IV Keppra. EEG of the brain showed diffuse slowing consistent with metabolic encephalopathy. Meanwhile, the patient is on a mechanical ventilator. This morning, the patient is an assist-control mode rate of tidal volume of 400 and a FiO2 of 40% with a PEEP of 6. The patient's pH is at 7.41 with a pCO2 of 35 and pO2 112. Chest x-ray still showing a dense infiltration of the left lower lobe. The patient's INR today is at 1.4 and the patient was given additional 5 mg of vitamin K ye day. The patient is currently off norepinephrine infusion. Hemodynamically more stable. Vasopressin will be also discontinued and the patient continues to be of normal saline at the rate of 75 mL an hour. Nevertheless, the creatinine still elevated at 4.1. Ultrasound the kidneys showed some hydronephrosis of the left kidney and for that reason urology has been involved and the patient will likely need a cystoscopy and retrograde pyelogram with possible stent insertion specially the patient's renal function continues to be quite impaired. On today's blood work, the patient's BUN is at 73 with a creatinine of 4.1, sodium level is at 141, the white cell count is at 33 with a hemoglobin of 9.7 and a platelet count of 147. Note that the patient had developed shock with multisystem organ failure including acute kidney injury and acute liver injury/shock liver. Renal function continues to be. With a creatinine of 4.1 despite ongoing improvement urine output. LFTs continued to improve. Ammonia levels are low. The patient is still receiving enteral feeding for nutritional support. The patient is tolerating a diet without any major difficulties. By the coverage, the patient remains on IV Zosyn and the patient is also on oral Diflucan Infectious diseases remains on the case. Objective - Vital Signs Vital signs: Vital Signs Temp 97.9 F 07/16/21 12:15 Pulse 72 07/16/21 12:15 Resp 24 07/16/21 12:15 BP 111/64 07/16/21 12:15 Pulse Ox 99 07/16/21 12:15 Intake & Output 07/15/21 07/16/21 07/16/21 18:59 06:59 18:59 Intake Total 1400 1094.260 375 Output Total 583 585 220 Balance 817 509.260 155 Weight 77.4 kg Intake: IV 200 965 375 .9 kvo 200 865 375 Piperacillin-Tazobactam 3 100 .375 gm In Sodium Chloride 0.9% 100 ml @ 25 mls/hr IVPB Q8HR [facility] Rx# :[id number] Intake, IV Titration 1200 129.260 Amount Calcium Gluconate in NaCl 100 1 gm In Saline 1 100ml. bag @ 100 mls/hr IVPB ONCE ONE Rx#:[id number] Norepinephrine 32 mg In 54.260 Sodium Chloride 0.9% 218 ml @ 0.05 MCG/KG/MIN 1. 425 mls/hr IV .Q24H [facility] Rx#:[id number] Phytonadione 5 mg In 100 Sodium Chloride 0.9% 50 ml @ 100 mls/hr IVPB ONCE ONE Rx#:[id number] Sodium Chloride 0.9% 1, 900 75 000 ml @ 75 mls/hr IV . [id number] [facility] Rx#:[id number] levETIRAcetam IV 750 mg 100 In Sodium Chloride 0.9% 100 ml @ 400 mls/hr IVPB ONCE ONE Rx#:[id number] Tube Feeding 0 0 Output: Urine 583 585 220 Estimated Blood Loss 0 Other: Voiding Method Indwelling Catheter Indwelling Catheter Indwelling Catheter ABP, PAP, CO, CI - Last Documented Arterial Blood Pressure 117/63 - Exam Currently intubated and mechanically ventilated. There is an orally placed end otracheal tube and NG tube.the patient is sedated and calm and comfortable, the patient is unresponsive while being off sedation for the past 48 hours. Head exam was generally normal. There was no scleral icterus or corneal arcus. Mucous membranes were moist. HEENT examination is grossly unremarkable. Neck supple. Full range of motion. No adenopathy thyromegaly or neck vein distention. Cardiovascular examination reveals regular rhythm rate. S1-S2 normal. No S3 or S4. No discernible murmur noted. Heart sounds are very distant. Lungs reveal coarse bilateral rhonchi. No wheezes. No crackles. Abnormal lung sounds are greatler in the left chest. Abdomen soft bowel sounds are heard. No masses or tenderness. Extremities are intact. No cyanosis clubbing there is a buildup of edema in all 4 extremities Examination of the skin revealed no evidence of significant rashes, suspicious appearing nevi or other concerning lesions. Neurologic examination is showing 3 mm pupil was sluggish and reactive to light no nystagmus. No clonus. No significant response to withdrawal to painful simulation. Reflexes are equal and symmetrical in all 4 extremities. No neck stiffness. No facial asymmetry. There is positive cough and a gag although weak. The patient only grimaces to deep painful stimulation. Otherwise, no response to verbal stimulation. - Labs CBC & Chem 7: 07/16/21 04:50 07/16/21 04:50 Labs: Abnormal Lab Results - Last 24 Hours (Table) 07/15/21 07/15/21 07/16/21 Range/Units 03:45 03:45 04:50 WBC (3.8-10.6) k/uL RBC (3.80-5.40) m/uL Hgb (11.4-16.0) gm/dL Hct (34.0-46.0) % Plt Count (150-450) k/uL Neutrophils # (1.3-7.7) k/uL Monocytes # (0-1.0) k/uL PT (9.0-12.0) sec INR (<1.2) ABG pO2 (83-108) mmHg ABG O2 Saturation (94-97) % BUN (7-17) mg/dL Creatinine (0.52-1.04) mg/dL Calcium (8.4-10.2) mg/dL Total Bilirubin (0.2-1.3) mg/dL AST (14-36) U/L ALT (4-34) U/L C-Reactive Protein (<1.0) mg/dL Total Protein (6.3-8.2) g/dL Total Protein (PEP) 4.7 L (6.2-8.2) g/dL Albumin (3.5-5.0) g/dL Procalcitonin 15.30 H (0.02-0.09) ng/mL Double Strand DNA Ab Indetermin A (NEGATIVE) Complement C3 20.8 L (80.0-207.0) mg/dL Complement C4 2.0 L (10.0-53.0) mg/dL 04/07/16/21 07/16/21 Range/Units 04:50 04:50 04:50 WBC 33.0 H (3.8-10.6) k/uL RBC 3.31 L (3.80-5.40) m/uL Hgb 9.7 L (11.4-16.0) gm/dL Hct 29.0 L (34.0-46.0) % Plt Count 147 L (150-450) k/uL Neutrophils # 30.1 H (1.3-7.7) k/uL Monocytes # 1.2 H (0-1.0) k/uL PT 14.3 H (9.0-12.0) sec INR 1.4 H (<1.2) ABG pO2 (83-108) mmHg ABG O2 Saturation (94-97) % BUN 73 H (7-17) mg/dL Creatinine 4.16 H (0.52-1.04) mg/dL Calcium 7.9 L (8.4-10.2) mg/dL Total Bilirubin 2.5 H (0.2-1.3) mg/dL AST 522 H (14-36) U/L ALT 889 H (4-34) U/L C-Reactive Protein 20.2 H (<1.0) mg/dL Total Protein 4.9 L (6.3-8.2) g/dL Total Protein (PEP) (6.2-8.2) g/dL Albumin 2.1 L (3.5-5.0) g/dL Procalcitonin (0.02-0.09) ng/mL Double Strand DNA Ab (NEGATIVE) Complement C3 (80.0-207.0) mg/dL Complement C4 (10.0-53.0) mg/dL 07/16/21 Range/Units 05:45 WBC (3.8-10.6) k/uL RBC (3.80-5.40) m/uL Hgb (11.4-16.0) gm/dL Hct (34.0-46.0) % Plt Count (150-450) k/uL Neutrophils # (1.3-7.7) k/uL Monocytes # (0-1.0) k/uL PT (9.0-12.0) sec INR (<1.2) ABG pO2 112 H (83-108) mmHg ABG O2 Saturation 98.1 H (94-97) % BUN (7-17) mg/dL Creatinine (0.52-1.04) mg/dL Calcium (8.4-10.2) mg/dL Total Bilirubin (0.2-1.3) mg/dL AST (14-36) U/L ALT (4-34) U/L C-Reactive Protein (<1.0) mg/dL Total Protein (6.3-8.2) g/dL Total Protein (PEP) (6.2-8.2) g/dL Albumin (3.5-5.0) g/dL Procalcitonin (0.02-0.09) ng/mL Double Strand DNA Ab (NEGATIVE) Complement C3 (80.0-207.0) mg/dL Complement C4 (10.0-53.0) mg/dL Microbiology - Last 24 Hours (Table) 07/12/21 21:40 Blood Culture - Preliminary Blood No Growth after 72 hours 07/09/21 16:30 Blood Culture - Final Blood No Growth after 144 hours 07/09/21 16:20 Blood Culture - Final Blood No Growth after 144 hours Assessment and Plan Plan: Acute hypoxemic respiratory failure secondary to left lung pneumonia,multifocal, status post intubation and mechanical ventilation as well as bronchoscopy on 07/11/2021.the results of the bronchoscopy is indicating Heidi albicans and the patient is currently on a combination of antibiotics including IV Zosyn and Diflucan, infectious disease on the case.. Chest x-ray findings are stable and unchanged and the patient's oxidation remains stable while being on an FiO2 of 40% with a PEEP of 6. Septic shock with multisystem organ failure. The patient remains off norepinephrine infusion and the patient is only on physiologic dose of vasopressin at 0.03 units an hour Altered mentation and the patient remains unresponsive despite being off sedation [employer] hemorrhagic bleed involving the right parietal lobe, measuring 5 mm in size, stable since yesterday based on series of CAT scans of the brain. The patient's coagulopathy has been reversed and the patient's INR is currently down to 1.4 and the patient was given vitamin K. Coumadin is on hold for now. EEG was noted any sores encephalopathy, likely metabolic in nature. Neurologist on the case. septic shock with signs of system organ failure. The patient was on a combination of pressors including vasopressin physiologic dose norepinephrine and norepinephrine . Norepinephrine has been discontinued and the patient remains on physiologic dose of vasopressin Acute kidney injury, secondary to above, urine output is improved compared to yesterday, the patient remains in a positive fluid balance. There is suggestion for hydronephrosis and a CAT scan of the abdomen and pelvis will be done to evaluate renal status and renal system.. The patient will be evaluated by urology and the patient will likely need a cystoscopy and retrograde pyelogram/possible stenting Acute shock liver, LFTs are improving History of COPD from previous significant tobacco use. History of hypertension. History of hyperlipidemia. Status post pacemaker implantation. coronary artery disease with previous coronary artery bypass surgery Valvular heart surgery as the patient has a well-healed looks to be a mitral valve ring on the chest x-ray acute leukocytosis, stable Acute Coumadin toxicity, treated and recovered Plan Continue ventilator support Normal saline at the rate of 75 mL an hour CAT scan of the brain, no contrast, was repeated and the patient had a stable hemorrhagic lesion in the right parietal lobe, possibly an area of metastases with secondary hemorrhage and some vasogenic edema. Neurology is aware. Findings are stable for now. Cystoscopy to be done today and possibly insertion of ureteral stent regarding left-sided hydronephrosis Monitor urine output Monitor electrolytes Wean off pressors, the patient is currently off norepinephrine the patient's vasopressin will be also discontinued Continue the same antibiotic coverage includes a combination of Diflucan and Zosyn Hold Coumadin Monitor LFTs , levels are essentially improving Keep the patient off sedation Repeat CAT scan of the chest Continue enteral feeding for nutritional support Condition is extremely critical and will continue to follow make further recommendations based on his progress. This evaluation was on a more than 35 minutes of this is a critically care evaluation and the patient carries a very poor prognosis based on presence of septic shock with multisystem organ failure. Time with Patient: Greater than 30
[2021-07-16 14:42] LABS: Albumin 2.05 g/dL (3.80-4.90); Gamma Globulin 0.81 g/dL (0.70-1.50)
[2021-07-16 14:56] LABS: Appearance,Urine Cloudy (Clear); Bacteria,Urine Rare /hpf; Bilirubin,Urine Negative (Negative); Blood,Urine Large (Negative); Color,Urine Yellow; Glucose,Urine (UA) Negative (Negative); Ketones,Urine Negative (Negative); Leukocyte Esterase,Urine Negative (Negative); Mucus,Urine Rare /hpf; Nitrite,Urine Negative (Negative); PH, Urine 5.5 (5.0-8.0); Protein,Urine Trace (Negative); RBC,Urine >182 /hpf (0-5); Specific Gravity,Urine 1.012 (1.001-1.035); Squamous Epithelial Cell,Urine 3 /hpf (0-4); Urobilinogen,Urine <2.0 mg/dL (<2.0); WBC,Urine 11 /hpf (0-5)
--- NOTE | 2021-07-16 15:01 | EEG ---
ELECTROENCEPHALOGRAM REPORT DATE OF SERVICE: 07/16/2021. CLINICAL HISTORY: This is a 71-year-old woman who continues to have altered mental status. The video EEG is obtained to evaluate for seizure epileptiform activity. Relevant medication is IV Keppra. EEG TYPE: A routine 21-channel EEG is performed with video using the 10/20 electrode placement system. DESCRIPTION: The patient is intubated on a ventilator. The background consists of low to moderate voltage of 2.5 to 3.5 hertz nonrhythmic delta activity and at rare time intermised with theta. There is no sleep architecture seen. There is no focal slowing. There is mild to moderate amount of anterior to posterior lag with triphasic morphology seen over bilateral hemisphere. Interictal and ictal is none. ACTIVATION PROCEDURE: Photic stimulation and hyperventilation are not performed. CLINICAL INTERPRETATION: This is an abnormal routine EEG. The background slowing is due to severe encephalopathy. The triphasic waves are due to toxic metabolic etiology. Otherwise there is no focal slowing, epileptiform discharge or seizure on the EEG. Compared to the EEG from the prior day (07/15/2021), there is no change. MMODL / IJN: [id number] / ELIZABETH
[2021-07-16 15:54] LABS: ANA Pattern Homogeneous
[2021-07-16 17:45] LABS: Glucose,Whole Blood 114 mg/dL (75-99)
[2021-07-16] MEDS: FLUCONAZOLE IN NACL,ISO-OSM 200 MG in SALINE 1 100ML.BAG IVPB SCH (18:16)
--- NOTE | 2021-07-16 21:20 | P.PN ---
Subjective Progress Note Date: 07/16/21 Principal diagnosis: Pneumonia Patient is a 71-year-old female with a past medical history significant for COPD and recent admission to [facility] for pneumonia pr esented to hospital with increasing shortness of breath and cough with a CT suspicious for left lower lobe pneumonia. The patient is status post cystoscopy and left ureteral stent placement completed on 07/16/2021 On today's evaluation that is 07/16/2021, the patient did have a low-grade fever of 99.7 this morning the patient is afebrile since then, the patient remains to be intubated on the vent, FiO2 is stable at 40 %, no significant purulent secretion through the ET diarrhea has been reported by nursing staff, Objective - Vital Signs Vital signs: Vital Signs Temp 97.9 F 07/16/21 12:15 Pulse 72 07/16/21 14:15 Resp 24 07/16/21 14:15 BP 110/62 07/16/21 14:15 Pulse Ox 98 07/16/21 14:15 Intake & Output 07/15/21 07/16/21 07/16/21 18:59 06:59 18:59 Intake Total 1400 1094.260 525 Output Total 583 585 360 Balance 817 509.260 165 Weight 77.4 kg Intake: IV 200 965 525 .9 kvo 200 865 525 Piperacillin-Tazobactam 3 100 .375 gm In Sodium Chloride 0.9% 100 ml @ 25 mls/hr IVPB Q8HR [facility] Rx# :[id number] Intake, IV Titration 1200 129.260 0 Amount Calcium Gluconate in NaCl 100 1 gm In Saline 1 100ml. bag @ 100 mls/hr IVPB ONCE ONE Rx#:[id number] Norepinephrine 32 mg In 54.260 0 Sodium Chloride 0.9% 218 ml @ 0.05 MCG/KG/MIN 1. 425 mls/hr IV .Q24H [facility] Rx#:[id number] Phytonadione 5 mg In 100 Sodium Chloride 0.9% 50 ml @ 100 mls/hr IVPB ONCE ONE Rx#:[id number] Sodium Chloride 0.9% 1, 900 75 000 ml @ 75 mls/hr IV . [id number] [facility] Rx#:[id number] levETIRAcetam IV 750 mg 100 In Sodium Chloride 0.9% 100 ml @ 400 mls/hr IVPB ONCE ONE Rx#:[id number] Tube Feeding 0 0 Output: Urine 583 585 360 Estimated Blood Loss 0 Other: Voiding Method Indwelling Catheter Indwelling Catheter Indwelling Catheter ABP, PAP, CO, CI - Last Documented Arterial Blood Pressure 104/52 - Exam GENERAL DESCRIPTION: An elderly female intubated on vent RESPIRATORY SYSTEM: Unlabored breathing , decreased breath sounds at bases HEART: S1 S2 regular rate and rhythm , ABDOMEN: Soft , no tenderness EXTREMITIES: No edema feet - Labs CBC & Chem 7: 07/16/21 04:50 07/16/21 04:50 Labs: Abnormal Lab Results - Last 24 Hours (Table) 07/15/21 07/15/21 07/16/21 Range/Units 03:45 03:45 04:50 WBC (3.8-10.6) k/uL RBC (3.80-5.40) m/uL Hgb (11.4-16.0) gm/dL Hct (34.0-46.0) % Plt Count (150-450) k/uL Neutrophils # (1.3-7.7) k/uL Monocytes # (0-1.0) k/uL PT (9.0-12.0) sec INR (<1.2) ABG pO2 (83-108) mmHg ABG O2 Saturation (94-97) % BUN (7-17) mg/dL Creatinine (0.52-1.04) mg/dL Calcium (8.4-10.2) mg/dL Total Bilirubin (0.2-1.3) mg/dL AST (14-36) U/L ALT (4-34) U/L C-Reactive Protein (<1.0) mg/dL Total Protein (6.3-8.2) g/dL Total Protein (PEP) 4.7 L (6.2-8.2) g/dL Albumin (3.5-5.0) g/dL Albumin (PEP) 2.05 L (3.80-4.90) g/dL Huqcw-0-Mohtlhzdz 0.54 H (0.10-0.40) g/dL Procalcitonin 15.30 H (0.02-0.09) ng/mL Double Strand DNA Ab Indetermin A (NEGATIVE) Complement C3 20.8 L (80.0-207.0) mg/dL Complement C4 2.0 L (10.0-53.0) mg/dL 07/16/21 07/16/21 07/16/21 Range/Units 04:50 04:50 04:50 WBC 33.0 H (3.8-10.6) k/uL RBC 3.31 L (3.80-5.40) m/uL Hgb 9.7 L (11.4-16.0) gm/dL Hct 29.0 L (34.0-46.0) % Plt Count 147 L (150-450) k/uL Neutrophils # 30.1 H (1.3-7.7) k/uL Monocytes # 1.2 H (0-1.0) k/uL PT 14.3 H (9.0-12.0) sec INR 1.4 H (<1.2) ABG pO2 (83-108) mmHg ABG O2 Saturation (94-97) % BUN 73 H (7-17) mg/dL Creatinine 4.16 H (0.52-1.04) mg/dL Calcium 7.9 L (8.4-10.2) mg/dL Total Bilirubin 2.5 H (0.2-1.3) mg/dL AST 522 H (14-36) U/L ALT 889 H (4-34) U/L C-Reactive Protein 20.2 H (<1.0) mg/dL Total Protein 4.9 L (6.3-8.2) g/dL Total Protein (PEP) (6.2-8.2) g/dL Albumin 2.1 L (3.5-5.0) g/dL Albumin (PEP) (3.80-4.90) g/dL Rxpfj-1-Ajmutnamv (0.10-0.40) g/dL Procalcitonin (0.02-0.09) ng/mL Double Strand DNA Ab (NEGATIVE) Complement C3 (80.0-207.0) mg/dL Complement C4 (10.0-53.0) mg/dL 07/16/21 Range/Units 05:45 WBC (3.8-10.6) k/uL RBC (3.80-5.40) m/uL Hgb (11.4-16.0) gm/dL Hct (34.0-46.0) % Plt Count (150-450) k/uL Neutrophils # (1.3-7.7) k/uL Monocytes # (0-1.0) k/uL PT (9.0-12.0) sec INR (<1.2) ABG pO2 112 H (83-108) mmHg ABG O2 Saturation 98.1 H (94-97) % BUN (7-17) mg/dL Creatinine (0.52-1.04) mg/dL Calcium (8.4-10.2) mg/dL Total Bilirubin (0.2-1.3) mg/dL AST (14-36) U/L ALT (4-34) U/L C-Reactive Protein (<1.0) mg/dL Total Protein (6.3-8.2) g/dL Total Protein (PEP) (6.2-8.2) g/dL Albumin (3.5-5.0) g/dL Albumin (PEP) (3.80-4.90) g/dL Ihsoj-8-Cldfrwciz (0.10-0.40) g/dL Procalcitonin (0.02-0.09) ng/mL Double Strand DNA Ab (NEGATIVE) Complement C3 (80.0-207.0) mg/dL Complement C4 (10.0-53.0) mg/dL Microbiology - Last 24 Hours (Table) 07/12/21 21:40 Blood Culture - Preliminary Blood No Growth after 72 hours 07/09/21 16:30 Blood Culture - Final Blood No Growth after 144 hours 07/09/21 16:20 Blood Culture - Final Blood No Growth after 144 hours Assessment and Plan (1) Pneumonia Current Visit: Yes Status: Acute Code(s): J18.9 - PNEUMONIA, UNSPECIFIED ORGANISM SNOMED Code(s): 185024653 Plan: 1patient presented to hospital with acute respiratory failure with in this patient did have hypoxemia increasing shortness of breath and cough with evidence of left lower lobe pneumonia on the CT and recently admitted and treated at [facility] having intercourse for the gram-negative pathogen. 2patient did have worsening of respiratory status requiring intubation patient is status post bronchoscopy and lavage those cultures are growing Heidi which is more likely colonizer 3patient did have worsening of the kidney function with evidence of left-sided hydronephrosis the patient is status post cystoscopy and left ureter stent placement completed 07/16/2021, will repeat a CBC BMP and LFT in the morning 4-patient is currently being treated with Zosyn , will add IV Diflucan in view of persistent elevated white count and possible component of complicated UTI Time with Patient: Less than 30
[2021-07-16] MEDS: SODIUM CHLORIDE 0.9% 150 ML with VASOPRESSIN 60 UNIT IV SCH ×2 (22:01)
[2021-07-17 00:05] LABS: Glucose,Whole Blood 111 mg/dL (75-99)
[2021-07-17] MEDS: INSULIN ASPART (NovoLOG) 100 UNIT/ML VIAL SQ SCH ×4 (00:43→18:30)
[2021-07-17] MEDS: SODIUM CHLORIDE 0.9% 1,000 ML IV SCH ×2 (00:49→17:37)
[2021-07-17] MEDS: METOCLOPRAMIDE 5 MG/ML 2 ML VIAL IVP SCH ×4 (00:49→18:30)
[2021-07-17] MEDS: IPRATROPIUM-ALBUTEROL 3 ML NEB INHALATION SCH ×6 (02:27→23:31)
[2021-07-17 04:50] LABS: INR 1.2 (<1.2)
[2021-07-17 05:30] LABS: Albumin 2.3 g/dL (3.5-5.0); Potassium 4.4 mmol/L (3.5-5.1); Total Bilirubin 1.9 mg/dL (0.2-1.3); Total Protein 5.2 g/dL (6.3-8.2)
[2021-07-17 05:31] LABS: C Reactive Protein 14.7 mg/dL (<1.0)
[2021-07-17 05:33] LABS: Basophils # (A) 0.1 k/uL (0-0.2); Basophils % (A) 0 %; Eosinophils % (A) 0 %; HCT 29.3 % (34.0-46.0); HGB 9.3 gm/dL (11.4-16.0); Hypochromasia Slight; Lymphocytes # (A) 1.2 k/uL (1.0-4.8); Lymphocytes % (A) 4 %; MCH 28.5 pg (25.0-35.0); MCHC 31.9 g/dL (31.0-37.0); MCV 89.4 fL (80.0-100.0); Mean Platelet Volume 10.9; Monocytes # (A) 0.7 k/uL (0-1.0); Monocytes % (A) 2 %; Neutrophils # (A) 31.1 k/uL (1.3-7.7); Neutrophils % (A) 93 %; Platelet Count 134 k/uL (150-450); RBC 3.27 m/uL (3.80-5.40); RDW 15.7 % (11.5-15.5); WBC 33.3 k/uL (3.8-10.6)
[2021-07-17 05:43] LABS: Glucose,Whole Blood 123 mg/dL (75-99)
[2021-07-17 06:06] LABS: ABG Base Excess -5.4 mmol/L; ABG HCO3 20 mmol/L (21-25); ABG PCO2 32 mmHg (35-45); ABG PH 7.39 (7.35-7.45); ABG PO2 95 mmHg (83-108); ABG TCO2 21 mmol/L (19-24); Allen Test Performed? Yes
[2021-07-17 07:11] LABS: Anisocytosis (M) Present; Polychromasia Present
--- NOTE | 2021-07-17 07:38 | XR ---
EXAMINATION TYPE: XR chest 1V portable DATE OF EXAM: 07/17/2021 COMPARISON: Chest x-ray 07/16/2021 HISTORY: Intubated TECHNIQUE: Single frontal view of the chest is obtained. FINDINGS: Endotracheal tube, NG tube, left sided jugular central venous catheter are all again noted , pacemaker is stable. Patient is post median sternotomy and cardiac valve replacement. Bilateral air space disease is present. No evident pneumothorax. There may be basilar effusions. Heart is likely st able. IMPRESSION: Correlate for pneumonia, possible associated effusions. Congestive heart failure not exc luded.
[2021-07-17] MEDS: methylPREDNISolone SOD SUCCI 125 MG/2 ML VIAL IV SCH ×2 (09:18→22:28)
[2021-07-17] MEDS ORDERED: FUROSEMIDE 10 MG/ML 10 ML VIAL IV STA (09:18)
[2021-07-17] MEDS: levETIRAcetam IV 500 MG in SODIUM CHLORIDE 0.9% 100 ML IVPB SCH ×2 (09:21→22:29)
[2021-07-17] MEDS: PIPERACILLIN-TAZOBACTAM 3.375 GM in SODIUM CHLORIDE 0.9% 100 ML IVPB SCH ×2 (09:21→22:29)
[2021-07-17] MEDS: CHLORHEXIDINE GLUCONATE 15 ML CUP MUCOUS MEM SCH ×2 (09:21→22:28)
[2021-07-17] MEDS ORDERED: FUROSEMIDE 10 MG/ML 10 ML VIAL IV SCH (09:30)
[2021-07-17] MEDS ORDERED: SODIUM BICARB 8.4% 50 ML SYR (1 MEQ/ML) IV STA (09:32)
--- NOTE | 2021-07-17 09:33 | P.PN ---
Subjective Patient is seen in follow-up for acute kidney injury. Renal function worsening. Urine output about 30 mL an hour. Currently on vasopressin. Intubated. Receiving IV fluids. Vital signs stable on vasopressor support. General: Intubated. LUNGS: Breath sounds decreased. HEART: Regular rate and rhythm. ABDOMEN: Soft, no distention. EXTREMITITES: Trace edema. Objective - Vital Signs Vital signs: Vital Signs Temp 97.1 F L 07/17/21 04:00 Pulse 75 07/17/21 07:40 Resp 24 07/17/21 07:40 BP 103/64 07/17/21 07:00 Pulse Ox 95 07/17/21 07:00 Intake & Output 07/16/21 07/17/21 07/17/21 18:59 06:59 18:59 Intake Total 825 1108.612 75.166 Output Total 560 405 5 Balance 265 703.612 70.166 Weight 77 kg Intake: IV 825 1100 75 .9 kvo 825 900 75 Piperacillin-Tazobactam 3 100 .375 gm In Sodium Chloride 0.9% 100 ml @ 25 mls/hr IVPB Q8HR [facility] Rx# :[id number] levETIRAcetam IV 500 mg 100 In Sodium Chloride 0.9% 100 ml @ 400 mls/hr IVPB Q12HR [facility] Rx#:[id number] Intake, IV Titration 0 8.612 0.166 Amount Norepinephrine 32 mg In 0 8.612 Sodium Chloride 0.9% 218 ml @ 0.05 MCG/KG/MIN 1. 425 mls/hr IV .Q24H [facility] Rx#:[id number] Sodium Chloride 0.9% 150 0.166 ml @ Titrate IV .Q24H [facility] with Vasopressin 60 unit Rx#:[id number] Output: Urine 560 405 5 Estimated Blood Loss 0 Other: Voiding Method Indwelling Catheter Indwelling Catheter ABP, PAP, CO, CI - Last Documented Arterial Blood Pressure 108/50 - Labs CBC & Chem 7: 07/17/21 04:00 07/17/21 04:00 Labs: Abnormal Lab Results - Last 24 Hours (Table) 07/15/21 07/15/21 07/16/21 Range/Units 03:45 14:50 04:50 WBC (3.8-10.6) k/uL RBC (3.80-5.40) m/uL Hgb (11.4-16.0) gm/dL Hct (34.0-46.0) % RDW (11.5-15.5) % Plt Count (150-450) k/uL Neutrophils # (1.3-7.7) k/uL PT (9.0-12.0) sec INR (<1.2) ABG pCO2 (35-45) mmHg ABG HCO3 (21-25) mmol/L Chloride (98-107) mmol/L Carbon Dioxide (22-30) mmol/L BUN (7-17) mg/dL Creatinine (0.52-1.04) mg/dL Glucose (74-99) mg/dL POC Glucose (mg/dL) (75-99) mg/dL Calcium (8.4-10.2) mg/dL Total Bilirubin (0.2-1.3) mg/dL AST (14-36) U/L ALT (4-34) U/L Alkaline Phosphatase (38-126) U/L C-Reactive Protein (<1.0) mg/dL Total Protein (6.3-8.2) g/dL Albumin (3.5-5.0) g/dL Albumin (PEP) 2.05 L (3.80-4.90) g/dL Ryoty-0-Okymembpy 0.54 H (0.10-0.40) g/dL Procalcitonin 15.30 H (0.02-0.09) ng/mL Urine Appearance (Clear) Urine Protein (Negative) Urine Blood (Negative) Urine RBC (0-5) /hpf Urine WBC (0-5) /hpf Urine Bacteria (None) /hpf Urine Mucus (None) /hpf Tot Complement (CH50) <14 L (42 - 95) U/mL 07/16/21 07/16/21 07/17/21 Range/Units 14:40 17:44 00:03 WBC (3.8-10.6) k/uL RBC (3.80-5.40) m/uL Hgb (11.4-16.0) gm/dL Hct (34.0-46.0) % RDW (11.5-15.5) % Plt Count (150-450) k/uL Neutrophils # (1.3-7.7) k/uL PT (9.0-12.0) sec INR (<1.2) ABG pCO2 (35-45) mmHg ABG HCO3 (21-25) mmol/L Chloride (98-107) mmol/L Carbon Dioxide (22-30) mmol/L BUN (7-17) mg/dL Creatinine (0.52-1.04) mg/dL Glucose (74-99) mg/dL POC Glucose (mg/dL) 114 H 111 H (75-99) mg/dL Calcium (8.4-10.2) mg/dL Total Bilirubin (0.2-1.3) mg/dL AST (14-36) U/L ALT (4-34) U/L Alkaline Phosphatase (38-126) U/L C-Reactive Protein (<1.0) mg/dL Total Protein (6.3-8.2) g/dL Albumin (3.5-5.0) g/dL Albumin (PEP) (3.80-4.90) g/dL Saxrh-4-Dzgwsrrwm (0.10-0.40) g/dL Procalcitonin (0.02-0.09) ng/mL Urine Appearance Cloudy H (Clear) Urine Protein Trace H (Negative) Urine Blood Large H (Negative) Urine RBC >182 H (0-5) /hpf Urine WBC 11 H (0-5) /hpf Urine Bacteria Rare H (None) /hpf Urine Mucus Rare H (None) /hpf Tot Complement (CH50) (42 - 95) U/mL 07/17/21 07/17/21 07/17/21 Range/Units 04:00 04:00 04:00 WBC 33.3 H (3.8-10.6) k/uL RBC 3.27 L (3.80-5.40) m/uL Hgb 9.3 L (11.4-16.0) gm/dL Hct 29.3 L (34.0-46.0) % RDW 15.7 H (11.5-15.5) % Plt Count 134 L (150-450) k/uL Neutrophils # 31.1 H (1.3-7.7) k/uL PT 13.0 H (9.0-12.0) sec INR 1.2 H (<1.2) ABG pCO2 (35-45) mmHg ABG HCO3 (21-25) mmol/L Chloride 110 H (98-107) mmol/L Carbon Dioxide 19 L (22-30) mmol/L BUN 84 H (7-17) mg/dL Creatinine 4.36 H (0.52-1.04) mg/dL Glucose 123 H (74-99) mg/dL POC Glucose (mg/dL) (75-99) mg/dL Calcium 8.0 L (8.4-10.2) mg/dL Total Bilirubin 1.9 H (0.2-1.3) mg/dL AST 237 H (14-36) U/L ALT 616 H (4-34) U/L Alkaline Phosphatase 128 H (38-126) U/L C-Reactive Protein 14.7 H (<1.0) mg/dL Total Protein 5.2 L (6.3-8.2) g/dL Albumin 2.3 L (3.5-5.0) g/dL Albumin (PEP) (3.80-4.90) g/dL Wvuko-7-Gabuswwop (0.10-0.40) g/dL Procalcitonin (0.02-0.09) ng/mL Urine Appearance (Clear) Urine Protein (Negative) Urine Blood (Negative) Urine RBC (0-5) /hpf Urine WBC (0-5) /hpf Urine Bacteria (None) /hpf Urine Mucus (None) /hpf Tot Complement (CH50) (42 - 95) U/mL 07/17/21 07/17/21 Range/Units 05:41 06:25 WBC (3.8-10.6) k/uL RBC (3.80-5.40) m/uL Hgb (11.4-16.0) gm/dL Hct (34.0-46.0) % RDW (11.5-15.5) % Plt Count (150-450) k/uL Neutrophils # (1.3-7.7) k/uL PT (9.0-12.0) sec INR (<1.2) ABG pCO2 32 L (35-45) mmHg ABG HCO3 20 L (21-25) mmol/L Chloride (98-107) mmol/L Carbon Dioxide (22-30) mmol/L BUN (7-17) mg/dL Creatinine (0.52-1.04) mg/dL Glucose (74-99) mg/dL POC Glucose (mg/dL) 123 H (75-99) mg/dL Calcium (8.4-10.2) mg/dL Total Bilirubin (0.2-1.3) mg/dL AST (14-36) U/L ALT (4-34) U/L Alkaline Phosphatase (38-126) U/L C-Reactive Protein (<1.0) mg/dL Total Protein (6.3-8.2) g/dL Albumin (3.5-5.0) g/dL Albumin (PEP) (3.80-4.90) g/dL Flvuf-5-Nrtoyxkwf (0.10-0.40) g/dL Procalcitonin (0.02-0.09) ng/mL Urine Appearance (Clear) Urine Protein (Negative) Urine Blood (Negative) Urine RBC (0-5) /hpf Urine WBC (0-5) /hpf Urine Bacteria (None) /hpf Urine Mucus (None) /hpf Tot Complement (CH50) (42 - 95) U/mL Microbiology - Last 24 Hours (Table) 07/12/21 21:40 Blood Culture - Preliminary Blood No Growth after 96 hours Assessment and Plan Plan: Assessment: 1. Acute kidney injury secondary to ATN secondary to septic shock. Creatinine was 1.78 at admission and is 4.36 today. Urine output 30 cc per hour. Unknown baseline renal function. Noted to be KELLY positive, complements low and double- stranded DNA antibody 8. Hepatitis and ANCA negative. No monoclonality Need to rule out GN - ?lupus - on steroids which were started in the 2021. Also component of obstructive uropathy - status post left ureteral stent placement this admission. 2. Septic shock secondary to pneumonia. Status post bronchoscopy. On vasopressor support and antibiotics. 3. Metabolic acidosis secondary to acute kidney injury and IV fluids. 4. Acute hypoxic respiratory failure secondary to pneumonia. Bronchial washings positive for Heidi. 5. Shock liver. AST and ALT trending down. 6. Hypokalemia from diuresis. Replaced. Improved. 7. Hypomagnesemia from diuresis. Replaced. Better. 8. Left-sided hydronephrosis. Urology following. Status post left ureteral stent placement 07/16/2021. Plan: Maintain normal saline at 75 mL an hour. Status post 80 mg IV Lasix given 07/13/2021 and 07/08/2021. Wean FiO2 and vasopressors. Avoid nephrotoxins. Continue to monitor renal function and urine output. Follow-up anti-GBM antibody. Maintain steroids. Rheumatology following. Will consider kidney biopsy once hemodynamically stable. Continue to assess daily for need for renal replacement therapy. Add bicarbonate.
[2021-07-17] MEDS: SODIUM BICARBONATE TAB 650 MG TAB PO SCH ×2 (10:08→22:28)
--- NOTE | 2021-07-17 11:29 | P.PN ---
Subjective Progress Note Date: 07/17/21 The patient is seen at bedside and per nurse minimally better. Patient is minimally opening her eyes. No clinical seizures noted. She has been off sedation now for 72 hours. Objective - Vital Signs Vital signs: Vital Signs Temp 97.1 F L 07/17/21 04:00 Pulse 76 07/17/21 11:14 Resp 26 H 07/17/21 11:14 BP 103/64 07/17/21 07:00 Pulse Ox 95 07/17/21 07:00 Intake & Output 07/16/21 07/17/21 07/17/21 18:59 06:59 18:59 Intake Total 825 1108.612 75.166 Output Total 560 405 5 Balance 265 703.612 70.166 Weight 77 kg 77 kg Intake: IV 825 1100 75 .9 kvo 825 900 75 Piperacillin-Tazobactam 3 100 .375 gm In Sodium Chloride 0.9% 100 ml @ 25 mls/hr IVPB Q8HR [facility] Rx# :[id number] levETIRAcetam IV 500 mg 100 In Sodium Chloride 0.9% 100 ml @ 400 mls/hr IVPB Q12HR [facility] Rx#:[id number] Intake, IV Titration 0 8.612 0.166 Amount Norepinephrine 32 mg In 0 8.612 Sodium Chloride 0.9% 218 ml @ 0.05 MCG/KG/MIN 1. 425 mls/hr IV .Q24H [facility] Rx#:[id number] Sodium Chloride 0.9% 150 0.166 ml @ Titrate IV .Q24H [facility] with Vasopressin 60 unit Rx#:[id number] Output: Urine 560 405 5 Estimated Blood Loss 0 Other: Voiding Method Indwelling Catheter Indwelling Catheter # Voids 3 ABP, PAP, CO, CI - Last Documented Arterial Blood Pressure 108/50 - Exam GENERAL: The patient is lying in bed and does not appear in acute distress. HENT: Supple neck. LUNG: Clear to auscultation bilaterally no wheezing noted throughout. Not labored breathing. Intubated on ventilator. NEUROLOGICAL: Limited because of her condition. Has been off sedation for 72 hours. Higher mental function: The patient is comatose. GCS 3 (E5, VT1, M1). Cranial nerves: The pupils are round, equal, about 4-5mm bilaterally and reactive to light. No facial weakness. Positive gag/cough reflex. Is breathing over the vent. Motor: The strength is limited but no movement noted to painful stimuli throughout. No spontaneous movement noted. Cerebellum: Unable to assess. Sensation: Unable to assess light touch but to painful stimuli not withdrawing or no reaction to it. Reflexes (right/left): 1+ throughout. Plantars are mute bilaterally. SOME OF THE WORK-UP: Ammonia level <9 Creatning on initial presentation is 1.78-->4.16 AST: 23-->400-->522 ALT 9-->1800-->889 KELLY is positive Double strand DNA ab Indeterminate, complement C3: 20 and c4:2.0 C-ANCA and P-ANCA CT of the head was ordered by the ICU team and it's reported as left parietal area could reflect focal acute hemorrhagic infarct, I see more suspicious for hemorrhagic metastasis disease given the surrounding vasogenic edema. Correlate clinically. Correlation with old outside CT and/or MRI would be beneficial. I personally reviewed the CT of the head and the patient had a small focal right hemorrhage on the parietal. She had two repeated CT head at 8pm on 07/15/2021 and today around 9ish am and no change. EEG on 07/15/2021: This is an abnormal routine EEG. The background slowing is suggestive of severe encephalopathy. The triphasic wave are suggestive of likely toxic-metabolic etiology. Otherwise there is no focal slowing, epileptiform discharge or seizure on the EEG. EEG on 07/16/2021: This is an abnormal routine EEG. The background slowing is suggestive of severe encephalopathy. The triphasic wave are suggestive of likely toxic-metabolic etiology. Otherwise there is no focal slowing, epileptiform discharge or seizure on the EEG. Compared to the EEG from the prior day (07/15/2021), there is no change. - Labs CBC & Chem 7: 07/17/21 04:00 07/17/21 04:00 Labs: Abnormal Lab Results - Last 24 Hours (Table) 07/15/21 07/15/21 07/16/21 Range/Units 03:45 14:50 14:40 WBC (3.8-10.6) k/uL RBC (3.80-5.40) m/uL Hgb (11.4-16.0) gm/dL Hct (34.0-46.0) % RDW (11.5-15.5) % Plt Count (150-450) k/uL Neutrophils # (1.3-7.7) k/uL PT (9.0-12.0) sec INR (<1.2) ABG pCO2 (35-45) mmHg ABG HCO3 (21-25) mmol/L Chloride (98-107) mmol/L Carbon Dioxide (22-30) mmol/L BUN (7-17) mg/dL Creatinine (0.52-1.04) mg/dL Glucose (74-99) mg/dL POC Glucose (mg/dL) (75-99) mg/dL Calcium (8.4-10.2) mg/dL Total Bilirubin (0.2-1.3) mg/dL AST (14-36) U/L ALT (4-34) U/L Alkaline Phosphatase (38-126) U/L C-Reactive Protein (<1.0) mg/dL Total Protein (6.3-8.2) g/dL Albumin (3.5-5.0) g/dL Albumin (PEP) 2.05 L (3.80-4.90) g/dL Tcvvh-4-Xcnpbpujp 0.54 H (0.10-0.40) g/dL Urine Appearance Cloudy H (Clear) Urine Protein Trace H (Negative) Urine Blood Large H (Negative) Urine RBC >182 H (0-5) /hpf Urine WBC 11 H (0-5) /hpf Urine Bacteria Rare H (None) /hpf Urine Mucus Rare H (None) /hpf Tot Complement (CH50) <14 L (42 - 95) U/mL 07/16/21 07/17/21 07/17/21 Range/Units 17:44 00:03 04:00 WBC 33.3 H (3.8-10.6) k/uL RBC 3.27 L (3.80-5.40) m/uL Hgb 9.3 L (11.4-16.0) gm/dL Hct 29.3 L (34.0-46.0) % RDW 15.7 H (11.5-15.5) % Plt Count 134 L (150-450) k/uL Neutrophils # 31.1 H (1.3-7.7) k/uL PT (9.0-12.0) sec INR (<1.2) ABG pCO2 (35-45) mmHg ABG HCO3 (21-25) mmol/L Chloride (98-107) mmol/L Carbon Dioxide (22-30) mmol/L BUN (7-17) mg/dL Creatinine (0.52-1.04) mg/dL Glucose (74-99) mg/dL POC Glucose (mg/dL) 114 H 111 H (75-99) mg/dL Calcium (8.4-10.2) mg/dL Total Bilirubin (0.2-1.3) mg/dL AST (14-36) U/L ALT (4-34) U/L Alkaline Phosphatase (38-126) U/L C-Reactive Protein (<1.0) mg/dL Total Protein (6.3-8.2) g/dL Albumin (3.5-5.0) g/dL Albumin (PEP) (3.80-4.90) g/dL Qjezx-3-Oghcvrrac (0.10-0.40) g/dL Urine Appearance (Clear) Urine Protein (Negative) Urine Blood (Negative) Urine RBC (0-5) /hpf Urine WBC (0-5) /hpf Urine Bacteria (None) /hpf Urine Mucus (None) /hpf Tot Complement (CH50) (42 - 95) U/mL 07/17/21 07/17/21 07/17/21 Range/Units 04:00 04:00 05:41 WBC (3.8-10.6) k/uL RBC (3.80-5.40) m/uL Hgb (11.4-16.0) gm/dL Hct (34.0-46.0) % RDW (11.5-15.5) % Plt Count (150-450) k/uL Neutrophils # (1.3-7.7) k/uL PT 13.0 H (9.0-12.0) sec INR 1.2 H (<1.2) ABG pCO2 (35-45) mmHg ABG HCO3 (21-25) mmol/L Chloride 110 H (98-107) mmol/L Carbon Dioxide 19 L (22-30) mmol/L BUN 84 H (7-17) mg/dL Creatinine 4.36 H (0.52-1.04) mg/dL Glucose 123 H (74-99) mg/dL POC Glucose (mg/dL) 123 H (75-99) mg/dL Calcium 8.0 L (8.4-10.2) mg/dL Total Bilirubin 1.9 H (0.2-1.3) mg/dL AST 237 H (14-36) U/L ALT 616 H (4-34) U/L Alkaline Phosphatase 128 H (38-126) U/L C-Reactive Protein 14.7 H (<1.0) mg/dL Total Protein 5.2 L (6.3-8.2) g/dL Albumin 2.3 L (3.5-5.0) g/dL Albumin (PEP) (3.80-4.90) g/dL Mubrk-4-Hwvahyvua (0.10-0.40) g/dL Urine Appearance (Clear) Urine Protein (Negative) Urine Blood (Negative) Urine RBC (0-5) /hpf Urine WBC (0-5) /hpf Urine Bacteria (None) /hpf Urine Mucus (None) /hpf Tot Complement (CH50) (42 - 95) U/mL 07/17/21 Range/Units 06:25 WBC (3.8-10.6) k/uL RBC (3.80-5.40) m/uL Hgb (11.4-16.0) gm/dL Hct (34.0-46.0) % RDW (11.5-15.5) % Plt Count (150-450) k/uL Neutrophils # (1.3-7.7) k/uL PT (9.0-12.0) sec INR (<1.2) ABG pCO2 32 L (35-45) mmHg ABG HCO3 20 L (21-25) mmol/L Chloride (98-107) mmol/L Carbon Dioxide (22-30) mmol/L BUN (7-17) mg/dL Creatinine (0.52-1.04) mg/dL Glucose (74-99) mg/dL POC Glucose (mg/dL) (75-99) mg/dL Calcium (8.4-10.2) mg/dL Total Bilirubin (0.2-1.3) mg/dL AST (14-36) U/L ALT (4-34) U/L Alkaline Phosphatase (38-126) U/L C-Reactive Protein (<1.0) mg/dL Total Protein (6.3-8.2) g/dL Albumin (3.5-5.0) g/dL Albumin (PEP) (3.80-4.90) g/dL Szeld-0-Ynsjabpfq (0.10-0.40) g/dL Urine Appearance (Clear) Urine Protein (Negative) Urine Blood (Negative) Urine RBC (0-5) /hpf Urine WBC (0-5) /hpf Urine Bacteria (None) /hpf Urine Mucus (None) /hpf Tot Complement (CH50) (42 - 95) U/mL Microbiology - Last 24 Hours (Table) 07/12/21 21:40 Blood Culture - Preliminary Blood No Growth after 96 hours Assessment and Plan Assessment: Acute small Hemorrhagic stroke over the right parietal: Unsure cause. Possibly could be due to episode of supratherapeutic INR (was as steve as 6.4 that she received reversal on 07/13 and currently 1.5). Cannot rule out processes hemorrhagic metastasis but seems unlikely since only lesion.---stable. Altered mental status due to multifactorial: Septic encephalopathy, metabolic encephalopathy. Septic shock with multisystem organ failure on pressor. History of Lupus for years Acute kidney injury trending up Acute hypoxic respiratory failure due to left lung pneumonia indicating Heidi albicans Acute shock liver--trending down Electrolyte abnormality: Hypocalcemia Acute Coumadin toxicity that received reversal improved and INR is subtherapeutic History of coronary artery disease status post the CABG s/p Pacemaker on coumadin Valvular heart surgery Hypertension Hyperlipidemia Plan: I will consider repeat CT head tomorrow to assess any change of patient hemorrhage. Cannot obtain MRA of the head since the patient is intubated on a ventilator. Cannot obtain CTA of the head as well to rule out any aneurysm or arterial/veno us malformation because of her kidney function. Continue Keppra 500mg IV every 12 hours as seizure prophylaxis for total for 7 days--stop on 07/22/2021 (especially with brain bleed) and after that discontinue (patient does not have any clinic or electrographic seizure). Coumadin is held and I recommend that she remain on hold for now. Avoid any antiplatelets or anticoagulation because of acute bleed Every hour neuro checks Nephrology team is on board Rheumatology is on board and feel patient has SLE. Currently patient is on Solumedrol 60mg every 12 hour. I.D. is on board I'll defer the rest of the medical management to the primary and ICU team Patient condition is critical. The plan was discussed with the patient's nurse and ICU team. UPDATE: I updated the patient's daughter and patient's sister who are at bedside of patient's condition. Patient stated patient has history of Lupus. Dr. Yepez will provide neurology coverage tomorrow AM then Dr. Forbes will start on 07/20/2021. Tremaine Mcguire M.D. Neuro-hospitalist Time with Patient: Less than 30
[2021-07-17 12:30] LABS: Glucose,Whole Blood 126 mg/dL (75-99)
--- NOTE | 2021-07-17 12:37 | P.PN ---
Subjective Progress Note Date: 07/17/21 On 07/13/2021, the patient is being seen in intensive care unit for acute hypoxic respiratory failure/pneumonia/sepsis. The patient is a 69-year-old female who was seen in [facility] for some increased cough and congestion and hypoxemia. The patient subsequently decompensated. The patient went on a BiPAP and at a later stage, the patient had to be intubated and placed on a mechanical ventilator. The patient is known to have CAD, coronary artery bypass, and a previous history of pacemaker insertion. For now, the patient is being treated for a pneumonia and acute hypoxic respiratory failure. The patient had essentially a left lung pneumonia and the chest x-ray was showing extensive consolidation of the left lung for which the patient underwent a bronchoscopy and the bronchioloalveolar lavage of the left lung and there is also consistent with Heidi. The patient is currently covered with accommodation IV Zosyn and IV Eraxis. Meanwhile, the patient had a negative COVID 19 testing, blood culture was negative, and the patient remains sedated on top of for which is running at 20 mcg/kg per minute. The patient is on a combination of pressors and the patient is currently on physiologic dose of vasopressin at 0.03 units per minute and the patient is also on norepinephrine 0.83 mcg/kg per minute. Cardiac rhythm is paced with occasional PVCs. The patient is on a mechanical ventilator on assist control mode at a rate of 24 with a tidal volume of 400 and FiO2 of 50% with a PEEP of 10. The blood gases from today showed a pH of 7.26 with a pCO2 of 36 and pO2 of 146. The chest x- ray is showing some limited improvement in the left lung consolidation. The patient is still febrile and the patient is running a temperature of 100.2 this morning. In terms of blood work, the white cell count is on the rise and currently is up to 25.4 and hemoglobin is at 10.1 with a platelet count of 270. The patient has a acute kidney injury. Creatinine is up to 3.8 with a BUN of 53 and a sodium level of 140. Serum bicarbonate 16. The patient did have also a shock liver yesterday and the AST was 4763 with an ALT of 1213. The echo of the heart showed mild concentric LVH with mild aortic stenosis otherwise negative. Furthermore, the patient is admitted on long-term and to coagulation with warfarin. There is regarding his underlying atrial fibrillation. INR today is at 6.4.the patient has a left IJ triple lumen catheter in place. The patient also has a right radial arterial line. Urine output has been in the order of 20 mL over the past 8 hours. 07/14/2021, seeing the patient for a follow-up. The patient remains intubated on a mechanical ventilator. On today's evaluation, the patient remains on propofol which is running at 5 mcg/kg per minute. The propofol is being gradually weaned off an underlying mental status will be evaluated. Note that the patient has shown some signs of improvement over the past 24 hours. The pressors requirements are less compared to yesterday. This morning, the norepinephrine is running at 0.12 mics of respiratory kilo Per minute and the vasopressin remains in the physiologic dose. At the same time, the patient shows improvement in the shock liver and improvement in the acute kidney injury. In terms of ventilator support, the patient remains on assist control mode of mechanical ventilation at the rate of 24 with a tidal volume of 400 and a rate of 24 with an FiO2 of 40% and a PEEP of 8. The blood gases showed a pH of 7.45 with a pCO2 of 39 and pO2 of 74. The patient is on normal saline and the bicarb infusion has been discontinued by nephrology. Normal saline is running at the rate of 75 mL an hour. The patient was admitted to 23 with hemoglobin of 9.8 and the patient has a platelet count of 207. BUN is down to 61 with a creatinine of 3.98. Urine output is improved over the past 24 hours and overall fluid balance is impossible for 2 L over the past 24 hours. Antibiotic coverage remains a combination of IV Zosyn and IV Diflucan. No new cultures are available. The cultures from the sputum and the bronchioloalveolar lavage came back positive for Heidi albicans. On a separate note, The patient was given no Coumadin and the patient's INR is down to 2.5. The chest x-ray findings are essentially unchanged and the patient continues to have CHF, pacemaker on the left, triple-lumen catheter is in a good location and there is no evidence of any pneumothorax. The patient continues to have a left lower lobe and lingular consolidation. The ultrasound of the abdomen showed hydropic gallbladder, cholelithiasis was incidentally noted. Small amount of ascites was present. Bladder was within normal limits. The 2 feeds are currently on hold as the patient was having increased residuals. 07/15/2021, patient is being seen for a follow-up. This morning, the patient is off propofol and the patient has been off propofol since 10:00 yesterday morning. She is very sluggish. They're responsive to any painful stimulation. No seizure activity. At times she blinks and at times she withdraws to deep painful stimulation. As such, a CAT scan of the brain will be needed. at the same time, the patient remains on mechanical ventilator and today the patient is an assist-control mode rate of 24, tidal volume of 400, FiO2 of 40% with a PEEP of 8. The blood gas showed a pH of 7.42 with a pCO2 of 39 and pO2 of 124. The chest x-ray from today shows a pacemaker on the left. The patient has airspace disease present bilaterally. The patient has ongoing bilateral pulmonary infiltrates, interstitial edema/pulmonary edema. The patient remains on IV fluids with normal saline at the rate of 50 mL an hour. The patient is still on vasopressin physiologic dose and the patient is also on norepinephrine at 0.04 microvascular kilogram per minute. The LFTs continued to improve as the patient had developed shock liver. Therefore she continues to be impaired with a cath in of 3.92. Overall fluid balance has been +1.2 L over the past 24 hours. The patient remains in atrial fibrillation. INR is down to 1.2. Rest of the blood work shows a sodium level of 141, BUN of 66 with a creatinine of 3.9. The white cell count is 29 with a hemoglobin of 10.4. Meanwhile, the patient remains on Diflucan and IV Zosyn per IDs recommendation. 07/16 2021, patient is being seen for a follow-up. The patient remains in the intensive care unit. The patient remains off propofol and the patient off propofol for the past 48 hours. She is grimacing only to deep painful stimulation. She is not responsive and she's not awake and she's noncommunicating at this point in time. She withdraws in her extremities for deep painful elevation. Note that the patient underwent a computed tomography scan of the brain yesterday and the patient was found to haveA right parietal area focal hemorrhagic infarct and 7 CAT scan of the brain were done, to yesterday and 1 today which showed no significant change in the size of this abnormality. Based on the radiologist's interpretation, the findings suspicious for hemorrhagic metastatic disease knowing that there was some vasogenic edema surrounding the abdomen 5 mm focus in the right parietal lobe. Neurologist on the case and the patient was orally started on IV Keppra. EEG of the brain showed diffuse slowing consistent with metabolic encephalopathy. Meanwhile, the patient is on a mechanical ventilator. This morning, the patient is an assist-control mode rate of tidal volume of 400 and a FiO2 of 40% with a PEEP of 6. The patient's pH is at 7.41 with a pCO2 of 35 and pO2 112. Chest x-ray still showing a dense infiltration of the left lower lobe. The patient's INR today is at 1.4 and the patient was given additional 5 mg of vitamin K ye day. The patient is currently off norepinephrine infusion. Hemodynamically more stable. Vasopressin will be also discontinued and the patient continues to be of normal saline at the rate of 75 mL an hour. Nevertheless, the creatinine still elevated at 4.1. Ultrasound the kidneys showed some hydronephrosis of the left kidney and for that reason urology has been involved and the patient will likely need a cystoscopy and retrograde pyelogram with possible stent insertion specially the patient's renal function continues to be quite impaired. On today's blood work, the patient's BUN is at 73 with a creatinine of 4.1, sodium level is at 141, the white cell count is at 33 with a hemoglobin of 9.7 and a platelet count of 147. Note that the patient had developed shock with multisystem organ failure including acute kidney injury and acute liver injury/shock liver. Renal function continues to be. With a creatinine of 4.1 despite ongoing improvement urine output. LFTs continued to improve. Ammonia levels are low. The patient is still receiving enteral feeding for nutritional support. The patient is tolerating a diet without any major difficulties. By the coverage, the patient remains on IV Zosyn and the patient is also on oral Diflucan Infectious diseases remains on the case. 07/18/2031, the patient is being seen for a follow-up. The patient has been still off sedation and this is going into 72 hours. She has again grimacing to deep painful sedation. On today's evaluation, she was opening his eyes spontaneously, nevertheless, the patient was not following any commands. The patient is off propofol. The patient was taken off the norepinephrine infusion and patient is also on low-dose vasopressin at 0.02 units an hour and this will be discontinued. Note that the patient's hemodynamics is improved considerably. Meanwhile, a CAT scan of the chest that was done yesterday showed worsening in the left lung consolidation. For that reason, repeat bronchoscopy and the bronchioloalveolar lavage of the left lung was done. He was some purulent material originating from the left lower lobe that was suctioned out and the lavage of the left lower lobe was done. The patient for now is on examination of antibiotics and he is receiving fluconazole and Zosyn. The patient is afebrile for now. They patient is on a mechanical ventilator on assist control mode with a rate of 24, tidal volume of 400, FiO2 of 30% with a PEEP of 6. The patient is at 7.39 with a pCO2 of 32 and pO2 of 95. The patient was a remains elevated at 33. The patient's renal function continues to be impaired with a BUN of 84 creatinine of 4.3. Note that the patient had a left ureteral stent inserted yesterday for an underlying hydronephrosis. The patient has a sodium level of 143 with a potassium level of 4.4. Overall that fluid balance has been +1.3 L over the past 24 hours. No other the patient's protest on 11 from 2 days back was quite elevated at 15.3. The patient remains on bronchodilators. The patient remains on IV Solu Medrol 60 mg every 12 hours. The findings on the case. The patient is also receiving enteral feeding for nutritional support. The liver function tests continued to improve as the patient is recovering from a shock liver. As for the CAT scan of the brain, neurologist on the case and the patient has a stable bleed in the right parietal lobe. The patient was started on Keppra as an empiric antibiotic coverage. No seizure activity has been noted. Coagulation profile is been reversed and the patient's INR is down to 1.2. Objective - Vital Signs Vital signs: Vital Signs Temp 97.1 F L 07/17/21 04:00 Pulse 78 07/17/21 11:24 Resp 26 H 07/17/21 11:24 BP 103/64 07/17/21 07:00 Pulse Ox 95 07/17/21 07:00 Intake & Output 07/16/21 07/17/21 07/17/21 18:59 06:59 18:59 Intake Total 825 1108.612 75.166 Output Total 560 405 5 Balance 265 703.612 70.166 Weight 77 kg 77 kg Intake: IV 825 1100 75 .9 kvo 825 900 75 Piperacillin-Tazobactam 3 100 .375 gm In Sodium Chloride 0.9% 100 ml @ 25 mls/hr IVPB Q8HR [facility] Rx# :[id number] levETIRAcetam IV 500 mg 100 In Sodium Chloride 0.9% 100 ml @ 400 mls/hr IVPB Q12HR [facility] Rx#:[id number] Intake, IV Titration 0 8.612 0.166 Amount Norepinephrine 32 mg In 0 8.612 Sodium Chloride 0.9% 218 ml @ 0.05 MCG/KG/MIN 1. 425 mls/hr IV .Q24H [facility] Rx#:[id number] Sodium Chloride 0.9% 150 0.166 ml @ Titrate IV .Q24H [facility] with Vasopressin 60 unit Rx#:[id number] Output: Urine 560 405 5 Estimated Blood Loss 0 Other: Voiding Method Indwelling Catheter Indwelling Catheter # Voids 3 ABP, PAP, CO, CI - Last Documented Arterial Blood Pressure 108/50 - Exam Currently intubated and mechanically ventilated. There is an orally placed endotracheal tube and NG tube.the patient is sedated and calm and comfortable, the patient is unresponsive while being off sedation for the past 72 hours. Head exam was generally normal. There was no scleral icterus or corneal arcus. Mucous membranes were moist. HEENT examination is grossly unremarkable. Neck supple. Full range of motion. No adenopathy thyromegaly or neck vein distention. Cardiovascular examination reveals regular rhythm rate. S1-S2 normal. No S3 or S4. No discernible murmur noted. Heart sounds are very distant. Lungs reveal coarse bilateral rhonchi. No wheezes. No crackles. Abnormal lung sounds are greatler in the left chest. Abdomen soft bowel sounds are heard. No masses or tenderness. Extremities are intact. No cyanosis clubbing there is a buildup of edema in all 4 extremities Examination of the skin revealed no evidence of significant rashes, suspicious appearing nevi or other concerning lesions. Neurologic examination is showing 3 mm pupil was sluggish and reactive to light no nystagmus. No clonus. No significant response to withdrawal to painful simulation. Reflexes are equal and symmetrical in all 4 extremities. No neck stiffness. No facial asymmetry. There is positive cough and a gag although weak. The patient only grimaces to deep painful stimulation. Otherwise, no response to verbal stimulation. The patient is opening her eyes spontaneously and the patient is grimacing to deep painful stimulation. - Labs CBC & Chem 7: 07/17/21 04:00 07/17/21 04:00 Labs: Abnormal Lab Results - Last 24 Hours (Table) 07/15/21 07/15/21 07/16/21 Range/Units 03:45 14:50 14:40 WBC (3.8-10.6) k/uL RBC (3.80-5.40) m/uL Hgb (11.4-16.0) gm/dL Hct (34.0-46.0) % RDW (11.5-15.5) % Plt Count (150-450) k/uL Neutrophils # (1.3-7.7) k/uL PT (9.0-12.0) sec INR (<1.2) ABG pCO2 (35-45) mmHg ABG HCO3 (21-25) mmol/L Chloride (98-107) mmol/L Carbon Dioxide (22-30) mmol/L BUN (7-17) mg/dL Creatinine (0.52-1.04) mg/dL Glucose (74-99) mg/dL POC Glucose (mg/dL) (75-99) mg/dL Calcium (8.4-10.2) mg/dL Total Bilirubin (0.2-1.3) mg/dL AST (14-36) U/L ALT (4-34) U/L Alkaline Phosphatase (38-126) U/L C-Reactive Protein (<1.0) mg/dL Total Protein (6.3-8.2) g/dL Albumin (3.5-5.0) g/dL Albumin (PEP) 2.05 L (3.80-4.90) g/dL [id number]-[id number] 0.54 H (0.10-0.40) g/dL Urine Appearance Cloudy H (Clear) Urine Protein Trace H (Negative) Urine Blood Large H (Negative) Urine RBC >182 H (0-5) /hpf Urine WBC 11 H (0-5) /hpf Urine Bacteria Rare H (None) /hpf Urine Mucus Rare H (None) /hpf Tot Complement (CH50) <14 L (42 - 95) U/mL 07/16/21 07/17/21 07/17/21 Range/Units 17:44 00:03 04:00 WBC 33.3 H (3.8-10.6) k/uL RBC 3.27 L (3.80-5.40) m/uL Hgb 9.3 L (11.4-16.0) gm/dL Hct 29.3 L (34.0-46.0) % RDW 15.7 H (11.5-15.5) % Plt Count 134 L (150-450) k/uL Neutrophils # 31.1 H (1.3-7.7) k/uL PT (9.0-12.0) sec INR (<1.2) ABG pCO2 (35-45) mmHg ABG HCO3 (21-25) mmol/L Chloride (98-107) mmol/L Carbon Dioxide (22-30) mmol/L BUN (7-17) mg/dL Creatinine (0.52-1.04) mg/dL Glucose (74-99) mg/dL POC Glucose (mg/dL) 114 H 111 H (75-99) mg/dL Calcium (8.4-10.2) mg/dL Total Bilirubin (0.2-1.3) mg/dL AST (14-36) U/L ALT (4-34) U/L Alkaline Phosphatase (38-126) U/L C-Reactive Protein (<1.0) mg/dL Total Protein (6.3-8.2) g/dL Albumin (3.5-5.0) g/dL Albumin (PEP) (3.80-4.90) g/dL Wcowv-2-Ovtwgqyyb (0.10-0.40) g/dL Urine Appearance (Clear) Urine Protein (Negative) Urine Blood (Negative) Urine RBC (0-5) /hpf Urine WBC (0-5) /hpf Urine Bacteria (None) /hpf Urine Mucus (None) /hpf Tot Complement (CH50) (42 - 95) U/mL 07/17/21 07/17/21 07/17/21 Range/Units 04:00 04:00 05:41 WBC (3.8-10.6) k/uL RBC (3.80-5.40) m/uL Hgb (11.4-16.0) gm/dL Hct (34.0-46.0) % RDW (11.5-15.5) % Plt Count (150-450) k/uL Neutrophils # (1.3-7.7) k/uL PT 13.0 H (9.0-12.0) sec INR 1.2 H (<1.2) ABG pCO2 (35-45) mmHg ABG HCO3 (21-25) mmol/L Chloride 110 H (98-107) mmol/L Carbon Dioxide 19 L (22-30) mmol/L BUN 84 H (7-17) mg/dL Creatinine 4.36 H (0.52-1.04) mg/dL Glucose 123 H (74-99) mg/dL POC Glucose (mg/dL) 123 H (75-99) mg/dL Calcium 8.0 L (8.4-10.2) mg/dL Total Bilirubin 1.9 H (0.2-1.3) mg/dL AST 237 H (14-36) U/L ALT 616 H (4-34) U/L Alkaline Phosphatase 128 H (38-126) U/L C-Reactive Protein 14.7 H (<1.0) mg/dL Total Protein 5.2 L (6.3-8.2) g/dL Albumin 2.3 L (3.5-5.0) g/dL Albumin (PEP) (3.80-4.90) g/dL Bgslw-2-Hoekqpdvn (0.10-0.40) g/dL Urine Appearance (Clear) Urine Protein (Negative) Urine Blood (Negative) Urine RBC (0-5) /hpf Urine WBC (0-5) /hpf Urine Bacteria (None) /hpf Urine Mucus (None) /hpf Tot Complement (CH50) (42 - 95) U/mL 07/17/21 Range/Units 06:25 WBC (3.8-10.6) k/uL RBC (3.80-5.40) m/uL Hgb (11.4-16.0) gm/dL Hct (34.0-46.0) % RDW (11.5-15.5) % Plt Count (150-450) k/uL Neutrophils # (1.3-7.7) k/uL PT (9.0-12.0) sec INR (<1.2) ABG pCO2 32 L (35-45) mmHg ABG HCO3 20 L (21-25) mmol/L Chloride (98-107) mmol/L Carbon Dioxide (22-30) mmol/L BUN (7-17) mg/dL Creatinine (0.52-1.04) mg/dL Glucose (74-99) mg/dL POC Glucose (mg/dL) (75-99) mg/dL Calcium (8.4-10.2) mg/dL Total Bilirubin (0.2-1.3) mg/dL AST (14-36) U/L ALT (4-34) U/L Alkaline Phosphatase (38-126) U/L C-Reactive Protein (<1.0) mg/dL Total Protein (6.3-8.2) g/dL Albumin (3.5-5.0) g/dL Albumin (PEP) (3.80-4.90) g/dL Vrwxu-7-Mpcvxvqvk (0.10-0.40) g/dL Urine Appearance (Clear) Urine Protein (Negative) Urine Blood (Negative) Urine RBC (0-5) /hpf Urine WBC (0-5) /hpf Urine Bacteria (None) /hpf Urine Mucus (None) /hpf Tot Complement (CH50) (42 - 95) U/mL Microbiology - Last 24 Hours (Table) 07/12/21 21:40 Blood Culture - Preliminary Blood No Growth after 96 hours Assessment and Plan Plan: Acute hypoxemic respiratory failure secondary to left lung pneumonia,multifocal, status post intubation and mechanical ventilation as well as bronchoscopy on 07/11/2021.the results of the bronchoscopy is indicating Heidi albicans and the patient is currently on a combination of antibiotics including IV Zosyn and Diflucan, infectious disease on the case.. Chest x-ray findings are stable and unchanged and the patient's oxidation remains stable while being on an FiO2 of 40% with a PEEP of 6. Nevertheless, the computed tomography scan of the chest that was done on 07/16/2021 showed extensive consolidation of the left lung along the left lower lobe and left upper lobe and this has gotten terribly worse. Based on that, the patient another bronchoscopy with lavage of the left lower lobe today. Septic shock with multisystem organ failure. The patient remains off norepinephrine infusion and the patient is only on physiologic dose of vasopressin which of the discontinued today Altered mentation and the patient remains unresponsive despite being off sedation, some limited improvement when the patient is grimacing to deep painful stimulation and she is having Fortaz I oropharynx. [employer] hemorrhagic bleed involving the right parietal lobe, measuring 5 mm in size, stable since yesterday based on series of CAT scans of the brain. The patient's coagulopathy has been reversed and the patient's INR is currently down to 1.2 and the patient was given vitamin K. Coumadin is on hold for now. EEG was noted any sores encephalopathy, likely metabolic in nature. Neurologist on the case. septic shock with signs of system organ failure. The patient was on a combination of pressors including vasopressin physiologic dose norepinephrine and norepinephrine . Norepinephrine has been discontinued and the patient remains on physiologic dose of vasopressin Acute kidney injury, secondary to above, urine output is improved compared to yesterday, the patient remains in a positive fluid balance. There is suggestion for hydronephrosis and a CAT scan of the abdomen and pelvis will be done to evaluate renal status and renal system.. The patient will be evaluated by urology and the patient had cystoscopy and retrograde pyelogram/ stenting regarding the underlying hydronephrosis. Acute shock liver, LFTs are improving History of COPD from previous significant tobacco use. History of hypertension. History of hyperlipidemia. Status post pacemaker implantation. coronary artery disease with previous coronary artery bypass surgery Valvular heart surgery as the patient has a well-healed looks to be a mitral valve ring on the chest x-ray acute leukocytosis, stable, unchanged Acute Coumadin toxicity, treated and recovered Plan Continue ventilator support Will reduce IV fluids to KVO Discontinue physiologic dose of vasopressin The patient is currently off norepinephrine CAT scan of the brain, no contrast, was repeated and the patient had a stable hemorrhagic lesion in the right parietal lobe, possibly an area of metastases with secondary hemorrhage and some vasogenic edema. Neurology is aware. Cystoscopy done with insertion of ureteral stent regarding left-sided hydronephrosis Monitor urine output Monitor electrolytes Give the patient dose of Lasix and milligrams IV push Continue the same antibiotic coverage includes a combination of Diflucan and Zosyn Hold Coumadin Monitor LFTs , levels are essentially improving Keep the patient off sedation Continue enteral feeding for nutritional support Condition is extremely critical and will continue to follow make further recommendations based on his progress. This evaluation was on a more than 35 minutes of this is a critically care evaluation and the patient carries a very poor prognosis based on presence of septic shock with multisystem organ failure. Time with Patient: Greater than 30
--- NOTE | 2021-07-17 12:39 | P.PCN ---
Date of Procedure: 07/17/21 Preoperative Diagnosis: Left lung pneumonia Postoperative Diagnosis: Left lung pneumonia Procedure(s) Performed: Flexible bronchoscopy, bronchoalveolar lavage of the left lung/left lower lobe Anesthesia: ADAMA Surgeon: Mckinley Zapata Estimated Blood Loss (ml): 0 Pathology: other Condition: critical Disposition: ICU Description of Procedure: This procedure was done in the intensive care unit. The patient's was first intubated and placed on mechanical ventilator. Following that, adequate sedation was achieved and the procedure was done while the patient was sedated on propofol, intubated on a mechanical ventilator where adequate oxidation ventilation was being performed. An adapter was attached with orotracheal tube and following that the flexible bronchoscope was easily passed through the orotracheal tube and was advanced into the lower trachea. The tip of the ET tube was around 2 cm of water nicho. Airway inspection was done and there was some looseness of the secretions in the bilateral mainstem bronchi and in the distal trachea. This was easily suctioned out with other major difficulties. The airway in general was patent and the patient a patent distal trachea, bilateral mainstem bronchi, right upper right middle right lower lobe, left upper and left lower lobe bronchi and the various segments were also patent. He was noted that most of the secretions originating from the left lower lobe. Left lower lobe bronchial mucosa was inflamed and erythematous. The bronchioloalveolar lavage of the left lower lobe was done. A total of 80 mL of fluid was infused at around 20 mL was aspirated without any major difficulties. The aspirate was cloudy. Therapeutic it was suctioning was done. Bronchoscope was removed and the patient was kept on a mechanical ventilator.
--- NOTE | 2021-07-17 14:25 | P.PN ---
Subjective Creat is persistently elevated post stent, creatinine now 4.3 from 4.1 Objective - Vital Signs Vital signs: Vital Signs Temp 97.1 F L 07/17/21 04:00 Pulse 78 07/17/21 11:24 Resp 26 H 07/17/21 11:24 BP 103/64 07/17/21 07:00 Pulse Ox 95 07/17/21 07:00 Intake & Output 07/16/21 07/17/21 07/17/21 18:59 06:59 18:59 Intake Total 825 1108.612 75.166 Output Total 560 405 5 Balance 265 703.612 70.166 Weight 77 kg 77 kg Intake: IV 825 1100 75 .9 kvo 825 900 75 Piperacillin-Tazobactam 3 100 .375 gm In Sodium Chloride 0.9% 100 ml @ 25 mls/hr IVPB Q8HR [facility] Rx# :[id number] levETIRAcetam IV 500 mg 100 In Sodium Chloride 0.9% 100 ml @ 400 mls/hr IVPB Q12HR [facility] Rx#:[id number] Intake, IV Titration 0 8.612 0.166 Amount Norepinephrine 32 mg In 0 8.612 Sodium Chloride 0.9% 218 ml @ 0.05 MCG/KG/MIN 1. 425 mls/hr IV .Q24H [facility] Rx#:[id number] Sodium Chloride 0.9% 150 0.166 ml @ Titrate IV .Q24H [facility] with Vasopressin 60 unit Rx#:[id number] Output: Urine 560 405 5 Estimated Blood Loss 0 Other: Voiding Method Indwelling Catheter Indwelling Catheter # Voids 3 ABP, PAP, CO, CI - Last Documented Arterial Blood Pressure 108/50 - Constitutional General appearance: Present: no acute distress - Gastrointestinal General gastrointestinal: Present: soft. Absent: distended, tenderness - Labs CBC & Chem 7: 07/17/21 04:00 07/17/21 04:00 Labs: Abnormal Lab Results - Last 24 Hours (Table) 07/15/21 07/15/21 07/16/21 Range/Units 03:45 14:50 14:40 WBC (3.8-10.6) k/uL RBC (3.80-5.40) m/uL Hgb (11.4-16.0) gm/dL Hct (34.0-46.0) % RDW (11.5-15.5) % Plt Count (150-450) k/uL Neutrophils # (1.3-7.7) k/uL PT (9.0-12.0) sec INR (<1.2) ABG pCO2 (35-45) mmHg ABG HCO3 (21-25) mmol/L Chloride (98-107) mmol/L Carbon Dioxide (22-30) mmol/L BUN (7-17) mg/dL Creatinine (0.52-1.04) mg/dL Glucose (74-99) mg/dL POC Glucose (mg/dL) (75-99) mg/dL Calcium (8.4-10.2) mg/dL Total Bilirubin (0.2-1.3) mg/dL AST (14-36) U/L ALT (4-34) U/L Alkaline Phosphatase (38-126) U/L C-Reactive Protein (<1.0) mg/dL Total Protein (6.3-8.2) g/dL Albumin (3.5-5.0) g/dL Albumin (PEP) 2.05 L (3.80-4.90) g/dL Glglo-3-Mlfypfxme 0.54 H (0.10-0.40) g/dL Urine Appearance Cloudy H (Clear) Urine Protein Trace H (Negative) Urine Blood Large H (Negative) Urine RBC >182 H (0-5) /hpf Urine WBC 11 H (0-5) /hpf Urine Bacteria Rare H (None) /hpf Urine Mucus Rare H (None) /hpf Tot Complement (CH50) <14 L (42 - 95) U/mL 07/16/21 07/17/21 07/17/21 Range/Units 17:44 00:03 04:00 WBC 33.3 H (3.8-10.6) k/uL RBC 3.27 L (3.80-5.40) m/uL Hgb 9.3 L (11.4-16.0) gm/dL Hct 29.3 L (34.0-46.0) % RDW 15.7 H (11.5-15.5) % Plt Count 134 L (150-450) k/uL Neutrophils # 31.1 H (1.3-7.7) k/uL PT (9.0-12.0) sec INR (<1.2) ABG pCO2 (35-45) mmHg ABG HCO3 (21-25) mmol/L Chloride (98-107) mmol/L Carbon Dioxide (22-30) mmol/L BUN (7-17) mg/dL Creatinine (0.52-1.04) mg/dL Glucose (74-99) mg/dL POC Glucose (mg/dL) 114 H 111 H (75-99) mg/dL Calcium (8.4-10.2) mg/dL Total Bilirubin (0.2-1.3) mg/dL AST (14-36) U/L ALT (4-34) U/L Alkaline Phosphatase (38-126) U/L C-Reactive Protein (<1.0) mg/dL Total Protein (6.3-8.2) g/dL Albumin (3.5-5.0) g/dL Albumin (PEP) (3.80-4.90) g/dL Fluwf-0-Bwjywbfrv (0.10-0.40) g/dL Urine Appearance (Clear) Urine Protein (Negative) Urine Blood (Negative) Urine RBC (0-5) /hpf Urine WBC (0-5) /hpf Urine Bacteria (None) /hpf Urine Mucus (None) /hpf Tot Complement (CH50) (42 - 95) U/mL 07/17/21 07/17/21 07/17/21 Range/Units 04:00 04:00 05:41 WBC (3.8-10.6) k/uL RBC (3.80-5.40) m/uL Hgb (11.4-16.0) gm/dL Hct (34.0-46.0) % RDW (11.5-15.5) % Plt Count (150-450) k/uL Neutrophils # (1.3-7.7) k/uL PT 13.0 H (9.0-12.0) sec INR 1.2 H (<1.2) ABG pCO2 (35-45) mmHg ABG HCO3 (21-25) mmol/L Chloride 110 H (98-107) mmol/L Carbon Dioxide 19 L (22-30) mmol/L BUN 84 H (7-17) mg/dL Creatinine 4.36 H (0.52-1.04) mg/dL Glucose 123 H (74-99) mg/dL POC Glucose (mg/dL) 123 H (75-99) mg/dL Calcium 8.0 L (8.4-10.2) mg/dL Total Bilirubin 1.9 H (0.2-1.3) mg/dL AST 237 H (14-36) U/L ALT 616 H (4-34) U/L Alkaline Phosphatase 128 H (38-126) U/L C-Reactive Protein 14.7 H (<1.0) mg/dL Total Protein 5.2 L (6.3-8.2) g/dL Albumin 2.3 L (3.5-5.0) g/dL Albumin (PEP) (3.80-4.90) g/dL Yiuil-9-Adttnkukf (0.10-0.40) g/dL Urine Appearance (Clear) Urine Protein (Negative) Urine Blood (Negative) Urine RBC (0-5) /hpf Urine WBC (0-5) /hpf Urine Bacteria (None) /hpf Urine Mucus (None) /hpf Tot Complement (CH50) (42 - 95) U/mL 07/17/21 07/17/21 Range/Units 06:25 12:29 WBC (3.8-10.6) k/uL RBC (3.80-5.40) m/uL Hgb (11.4-16.0) gm/dL Hct (34.0-46.0) % RDW (11.5-15.5) % Plt Count (150-450) k/uL Neutrophils # (1.3-7.7) k/uL PT (9.0-12.0) sec INR (<1.2) ABG pCO2 32 L (35-45) mmHg ABG HCO3 20 L (21-25) mmol/L Chloride (98-107) mmol/L Carbon Dioxide (22-30) mmol/L BUN (7-17) mg/dL Creatinine (0.52-1.04) mg/dL Glucose (74-99) mg/dL POC Glucose (mg/dL) 126 H (75-99) mg/dL Calcium (8.4-10.2) mg/dL Total Bilirubin (0.2-1.3) mg/dL AST (14-36) U/L ALT (4-34) U/L Alkaline Phosphatase (38-126) U/L C-Reactive Protein (<1.0) mg/dL Total Protein (6.3-8.2) g/dL Albumin (3.5-5.0) g/dL Albumin (PEP) (3.80-4.90) g/dL Hqwmc-2-Jhridbhnw (0.10-0.40) g/dL Urine Appearance (Clear) Urine Protein (Negative) Urine Blood (Negative) Urine RBC (0-5) /hpf Urine WBC (0-5) /hpf Urine Bacteria (None) /hpf Urine Mucus (None) /hpf Tot Complement (CH50) (42 - 95) U/mL Microbiology - Last 24 Hours (Table) 07/12/21 21:40 Blood Culture - Preliminary Blood No Growth after 96 hours Assessment and Plan Assessment: 71-year-old female admitted to the hospital with sepsis secondary to pneumonia, and acute kidney injury. Underwent left stent placement on 07/16, no improvement in creatinine following stent insertion on admission was 1.78. Baseline is unknown. CT showed left-sided hydronephrosis, -We'll continue to trend creatinine -Pending her renal function she will require either a stent removal or stent exchange as an outpatient
--- NOTE | 2021-07-17 16:28 | P.PN ---
Subjective Progress Note Date: 07/17/21 Principal diagnosis: Pneumonia Patient is a 71-year-old female with a past medical history significant for COPD and recent admission to [facility] for pneumonia pr esented to hospital with increasing shortness of breath and cough with a CT suspicious for left lower lobe pneumonia. The patient is status post cystoscopy and left ureteral stent placement completed on 07/16/2021 On today's evaluation that is 07/17/2021, the patient is afebrile today, the patient remains to be intubated on the vent, FiO2 is down to 30 %, no significant purulent secretion through the ET diarrhea has been reported by nursing staff, Objective - Vital Signs Vital signs: Vital Signs Temp 97.1 F L 07/17/21 04:00 Pulse 78 07/17/21 11:24 Resp 26 H 07/17/21 11:24 BP 103/64 07/17/21 07:00 Pulse Ox 95 07/17/21 07:00 Intake & Output 07/16/21 07/17/21 07/17/21 18:59 06:59 18:59 Intake Total 825 1108.612 75.166 Output Total 560 405 5 Balance 265 703.612 70.166 Weight 77 kg 77 kg Intake: IV 825 1100 75 .9 kvo 825 900 75 Piperacillin-Tazobactam 3 100 .375 gm In Sodium Chloride 0.9% 100 ml @ 25 mls/hr IVPB Q8HR [facility] Rx# :[id number] levETIRAcetam IV 500 mg 100 In Sodium Chloride 0.9% 100 ml @ 400 mls/hr IVPB Q12HR [facility] Rx#:[id number] Intake, IV Titration 0 8.612 0.166 Amount Norepinephrine 32 mg In 0 8.612 Sodium Chloride 0.9% 218 ml @ 0.05 MCG/KG/MIN 1. 425 mls/hr IV .Q24H [facility] Rx#:[id number] Sodium Chloride 0.9% 150 0.166 ml @ Titrate IV .Q24H [facility] with Vasopressin 60 unit Rx#:[id number] Output: Urine 560 405 5 Estimated Blood Loss 0 Other: Voiding Method Indwelling Catheter Indwelling Catheter # Voids 3 ABP, PAP, CO, CI - Last Documented Arterial Blood Pressure 108/50 - Exam GENERAL DESCRIPTION: An elderly female intubated on vent RESPIRATORY SYSTEM: Unlabored breathing , decreased breath sounds at bases HEART: S1 S2 regular rate and rhythm , ABDOMEN: Soft , no tenderness EXTREMITIES: No edema feet - Labs CBC & Chem 7: 07/17/21 04:00 07/17/21 04:00 Labs: Abnormal Lab Results - Last 24 Hours (Table) 07/15/21 07/15/21 07/16/21 Range/Units 03:45 14:50 14:40 WBC (3.8-10.6) k/uL RBC (3.80-5.40) m/uL Hgb (11.4-16.0) gm/dL Hct (34.0-46.0) % RDW (11.5-15.5) % Plt Count (150-450) k/uL Neutrophils # (1.3-7.7) k/uL PT (9.0-12.0) sec INR (<1.2) ABG pCO2 (35-45) mmHg ABG HCO3 (21-25) mmol/L Chloride (98-107) mmol/L Carbon Dioxide (22-30) mmol/L BUN (7-17) mg/dL Creatinine (0.52-1.04) mg/dL Glucose (74-99) mg/dL POC Glucose (mg/dL) (75-99) mg/dL Calcium (8.4-10.2) mg/dL Total Bilirubin (0.2-1.3) mg/dL AST (14-36) U/L ALT (4-34) U/L Alkaline Phosphatase (38-126) U/L C-Reactive Protein (<1.0) mg/dL Total Protein (6.3-8.2) g/dL Albumin (3.5-5.0) g/dL Albumin (PEP) 2.05 L (3.80-4.90) g/dL Mpzil-3-Nnvhnldjb 0.54 H (0.10-0.40) g/dL Urine Appearance Cloudy H (Clear) Urine Protein Trace H (Negative) Urine Blood Large H (Negative) Urine RBC >182 H (0-5) /hpf Urine WBC 11 H (0-5) /hpf Urine Bacteria Rare H (None) /hpf Urine Mucus Rare H (None) /hpf Tot Complement (CH50) <14 L (42 - 95) U/mL 07/16/21 07/17/21 07/17/21 Range/Units 17:44 00:03 04:00 WBC 33.3 H (3.8-10.6) k/uL RBC 3.27 L (3.80-5.40) m/uL Hgb 9.3 L (11.4-16.0) gm/dL Hct 29.3 L (34.0-46.0) % RDW 15.7 H (11.5-15.5) % Plt Count 134 L (150-450) k/uL Neutrophils # 31.1 H (1.3-7.7) k/uL PT (9.0-12.0) sec INR (<1.2) ABG pCO2 (35-45) mmHg ABG HCO3 (21-25) mmol/L Chloride (98-107) mmol/L Carbon Dioxide (22-30) mmol/L BUN (7-17) mg/dL Creatinine (0.52-1.04) mg/dL Glucose (74-99) mg/dL POC Glucose (mg/dL) 114 H 111 H (75-99) mg/dL Calcium (8.4-10.2) mg/dL Total Bilirubin (0.2-1.3) mg/dL AST (14-36) U/L ALT (4-34) U/L Alkaline Phosphatase (38-126) U/L C-Reactive Protein (<1.0) mg/dL Total Protein (6.3-8.2) g/dL Albumin (3.5-5.0) g/dL Albumin (PEP) (3.80-4.90) g/dL Qhplq-5-Kslnrranb (0.10-0.40) g/dL Urine Appearance (Clear) Urine Protein (Negative) Urine Blood (Negative) Urine RBC (0-5) /hpf Urine WBC (0-5) /hpf Urine Bacteria (None) /hpf Urine Mucus (None) /hpf Tot Complement (CH50) (42 - 95) U/mL 07/17/21 07/17/21 07/17/21 Range/Units 04:00 04:00 05:41 WBC (3.8-10.6) k/uL RBC (3.80-5.40) m/uL Hgb (11.4-16.0) gm/dL Hct (34.0-46.0) % RDW (11.5-15.5) % Plt Count (150-450) k/uL Neutrophils # (1.3-7.7) k/uL PT 13.0 H (9.0-12.0) sec INR 1.2 H (<1.2) ABG pCO2 (35-45) mmHg ABG HCO3 (21-25) mmol/L Chloride 110 H (98-107) mmol/L Carbon Dioxide 19 L (22-30) mmol/L BUN 84 H (7-17) mg/dL Creatinine 4.36 H (0.52-1.04) mg/dL Glucose 123 H (74-99) mg/dL POC Glucose (mg/dL) 123 H (75-99) mg/dL Calcium 8.0 L (8.4-10.2) mg/dL Total Bilirubin 1.9 H (0.2-1.3) mg/dL AST 237 H (14-36) U/L ALT 616 H (4-34) U/L Alkaline Phosphatase 128 H (38-126) U/L C-Reactive Protein 14.7 H (<1.0) mg/dL Total Protein 5.2 L (6.3-8.2) g/dL Albumin 2.3 L (3.5-5.0) g/dL Albumin (PEP) (3.80-4.90) g/dL Eltdn-9-Wcqkxobzv (0.10-0.40) g/dL Urine Appearance (Clear) Urine Protein (Negative) Urine Blood (Negative) Urine RBC (0-5) /hpf Urine WBC (0-5) /hpf Urine Bacteria (None) /hpf Urine Mucus (None) /hpf Tot Complement (CH50) (42 - 95) U/mL 07/17/21 07/17/21 Range/Units 06:25 12:29 WBC (3.8-10.6) k/uL RBC (3.80-5.40) m/uL Hgb (11.4-16.0) gm/dL Hct (34.0-46.0) % RDW (11.5-15.5) % Plt Count (150-450) k/uL Neutrophils # (1.3-7.7) k/uL PT (9.0-12.0) sec INR (<1.2) ABG pCO2 32 L (35-45) mmHg ABG HCO3 20 L (21-25) mmol/L Chloride (98-107) mmol/L Carbon Dioxide (22-30) mmol/L BUN (7-17) mg/dL Creatinine (0.52-1.04) mg/dL Glucose (74-99) mg/dL POC Glucose (mg/dL) 126 H (75-99) mg/dL Calcium (8.4-10.2) mg/dL Total Bilirubin (0.2-1.3) mg/dL AST (14-36) U/L ALT (4-34) U/L Alkaline Phosphatase (38-126) U/L C-Reactive Protein (<1.0) mg/dL Total Protein (6.3-8.2) g/dL Albumin (3.5-5.0) g/dL Albumin (PEP) (3.80-4.90) g/dL Lznot-2-Vzrhtfbxa (0.10-0.40) g/dL Urine Appearance (Clear) Urine Protein (Negative) Urine Blood (Negative) Urine RBC (0-5) /hpf Urine WBC (0-5) /hpf Urine Bacteria (None) /hpf Urine Mucus (None) /hpf Tot Complement (CH50) (42 - 95) U/mL Microbiology - Last 24 Hours (Table) 07/12/21 21:40 Blood Culture - Preliminary Blood No Growth after 96 hours Assessment and Plan (1) Pneumonia Current Visit: Yes Status: Acute Code(s): J18.9 - PNEUMONIA, UNSPECIFIED ORGANISM SNOMED Code(s): 906930486 Plan: 1patient presented to hospital with acute respiratory failure with in this patient did have hypoxemia increasing shortness of breath and cough with evidence of left lower lobe pneumonia on the CT and recently admitted and treated at [facility] having intercourse for the gram-negative pathogen. 2patient did have worsening of respiratory status requiring intubation patient is status post bronchoscopy and lavage those cultures are growing Heidi which is more likely colonizer 3patient did have worsening of the kidney function with evidence of left-sided hydronephrosis the patient is status post cystoscopy and left ureter stent placement completed 07/16/2021, 4-patient condition seems to be stable fever has resolved no worsening white count was noticed continue with the Zosyn and Diflucan and monitor clinical course closely daughter at the bedside questions were answered Time with Patient: Less than 30
[2021-07-17] MEDS: NOREPINEPHRINE 32 MG in SODIUM CHLORIDE 0.9% 218 ML IV SCH (17:39)
[2021-07-17 17:51] LABS: Glucose,Whole Blood 134 mg/dL (75-99)
[2021-07-17] MEDS: FLUCONAZOLE IN NACL,ISO-OSM 200 MG in SALINE 1 100ML.BAG IVPB SCH (18:31)
[2021-07-18 00:10] LABS: Glucose,Whole Blood 150 mg/dL (75-99)
[2021-07-18] MEDS: INSULIN ASPART (NovoLOG) 100 UNIT/ML VIAL SQ SCH ×5 (00:20→23:19)
[2021-07-18] MEDS: METOCLOPRAMIDE 5 MG/ML 2 ML VIAL IVP SCH ×5 (00:20→23:20)
[2021-07-18] MEDS: IPRATROPIUM-ALBUTEROL 3 ML NEB INHALATION SCH ×6 (03:25→23:09)
[2021-07-18 05:34] LABS: Glucose,Whole Blood 148 mg/dL (75-99)
[2021-07-18 05:56] LABS: ABG Base Excess -1.8 mmol/L; ABG HCO3 22 mmol/L (21-25); ABG Oxygen Saturation 97.8 % (94-97); ABG PCO2 33 mmHg (35-45); ABG PH 7.44 (7.35-7.45); ABG PO2 114 mmHg (83-108); ABG TCO2 23 mmol/L (19-24); Allen Test Performed? Yes
--- NOTE | 2021-07-18 06:08 | PN ---
PROGRESS NOTE Discussed the case with the daughter abraham. 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 The patient has been weaned off vasopressors. On broad-spectrum antibiotics, possible UTI and pneumonia. Still on the vent, resting comfortably. Sedation has been discontinued. She is very sluggish. She opens her eyes at times. She is responsive to the painful stimuli. History of lupus for many years family says. The EEG shows severe encephalopathy. ABGs and labs reviewed. Renal function continues to be high. Because she is off vasopressor she might be able to get dialysis if needed. Nutritional support has been given. She is on IV Solu- Medrol. Possible shock liver. Repeat CT scan shows no change. INR is 1.2. Temperature 97.1, pulse 78, respiratory rate 20-26, blood pressure 103/64, O2 95. Resting comfortably on vent. ( ). Cardiovascular S1, S2. Lungs: Mostly clear. Neurologic as mentioned. Painful stimuli, she moves. White count 33, hemoglobin is 9.3, platelet count 134. BUN is 84, creatinine 4.36. The UA greater than ( ), total blood large, bacteria. ASSESSMENT: Acute hypoxemic respiratory failure, left lower lobe pneumonia, metabolic encephalopathy, acute respiratory failure, septic shock, multi organ failure status post ureter blockage obstruction fixed with stents day 1, possible right parietal lobe lesion that is possibly hemorrhagic, real small, primarily has not changed. Doubt that has any impact on her getting off the vent. Coumadin on hold. She has acute kidney injury. Urine output is improved compared to yesterday, status post stents. Acute shock liver, hypertension, history of lupus, status post pacemaker many years ago, coronary artery disease, status post valvular heart disease, leukocytosis, Coumadin elevation now better. She is currently off norepinephrine vasopressin. Possible metastases to the brain or vasogenic edema. Status post ureteral stents, left sided hydronephrosis. Small dose of Lasix. Continue Zosyn. Prognosis guarded. MMODL / IJN: [id number] /
[2021-07-18 08:06] LABS: Basophils # (A) 0.1 k/uL (0-0.2); Basophils % (A) 0 %; Eosinophils % (A) 0 %; HCT 28.8 % (34.0-46.0); HGB 8.8 gm/dL (11.4-16.0); Hypochromasia Slight; Lymphocytes # (A) 0.7 k/uL (1.0-4.8); Lymphocytes % (A) 3 %; MCH 27.7 pg (25.0-35.0); MCHC 30.6 g/dL (31.0-37.0); MCV 90.6 fL (80.0-100.0); Mean Platelet Volume 11.4; Monocytes # (A) 0.7 k/uL (0-1.0); Monocytes % (A) 3 %; Neutrophils # (A) 24.6 k/uL (1.3-7.7); Neutrophils % (A) 94 %; Platelet Count 112 k/uL (150-450); RBC 3.17 m/uL (3.80-5.40); WBC 26.2 k/uL (3.8-10.6)
--- NOTE | 2021-07-18 08:40 | CT ---
EXAMINATION TYPE: CT brain wo con DATE OF EXAM: 07/18/2021 COMPARISON: 07/16/2021 INDICATION: Brain bleed rule out metastases DLP: 1095 mGycm, Automated exposure control for dose reduction was used. CONTRAST: None CT of the brain is performed utilizing 3 mm thick sections through the posterior fossa and 3 mm thick sections through the remaining calvarium. Study is performed within 24 hours of arrival to the hosp [facility]. Punctate hyperdensity within the right parietal occipital junction slightly less intense on the curre nt exam suggesting some normal maturation of a hemorrhage. No mass lesion is evident. No acute infarcts are evident. Ventricles and sulci are appropriate for the patient age. Paranasal sinuses and mastoid air cells within the lzwhk-gh-fqxl are clear. Patient is intubated. IMPRESSIONS: 1. 0.6 cm indistinct slightly diminishing density in the right parieto-occipital region may be a sm all hemorrhage, no new additional hemorrhage is evident. 2. Atrophy. 3. MRI would be more sensitive for subtle small masses.
[2021-07-18 08:46] LABS: Albumin 2.3 g/dL (3.5-5.0); Calcium 8.1 mg/dL (8.4-10.2); Potassium 4.1 mmol/L (3.5-5.1); Total Bilirubin 1.4 mg/dL (0.2-1.3); Total Protein 5.3 g/dL (6.3-8.2)
--- NOTE | 2021-07-18 09:07 | P.PN ---
Subjective Patient is seen in follow-up for acute kidney injury. Renal function slightly worse. Urine output stable at about 30 mL an hour. Off vasopressors. Intubated. Now receiving tube feeds. Vital signs stable. General: Intubated. LUNGS: Breath sounds decreased. HEART: Regular rate and rhythm. ABDOMEN: Soft, no distention. EXTREMITITES: Trace edema. Objective - Vital Signs Vital signs: Vital Signs Temp 98 F 07/18/21 04:00 Pulse 77 07/18/21 07:36 Resp 24 07/18/21 07:00 BP 123/71 07/18/21 07:00 Pulse Ox 94 L 07/18/21 07:00 Intake & Output 07/17/21 07/18/21 07/18/21 18:59 06:59 18:59 Intake Total 993.162 3653 30 Output Total 470 440 20 Balance 485.166 570 10 Weight 77 kg Intake: IV 935 440 10 .9 kvo 835 140 10 Fluconazole in NaCl,Iso- 100 Osm 200 mg In Saline 1 100ml.bag @ 100 mls/hr IVPB Q24H [facility] Rx#: [id number] Piperacillin-Tazobactam 3 100 .375 gm In Sodium Chloride 0.9% 100 ml @ 25 mls/hr IVPB Q8HR [facility] Rx# :[id number] levETIRAcetam IV 500 mg 100 100 In Sodium Chloride 0.9% 100 ml @ 400 mls/hr IVPB Q12HR [facility] Rx#:[id number] Intake, IV Titration 0.166 Amount Sodium Chloride 0.9% 150 0.166 ml @ Titrate IV .Q24H [facility] with Vasopressin 60 unit Rx#:[id number] Tube Feeding 20 170 20 Other 400 Output: Urine 470 440 20 Other: Voiding Method Indwelling Catheter Indwelling Catheter # Voids 3 ABP, PAP, CO, CI - Last Documented Arterial Blood Pressure 96/94 - Labs CBC & Chem 7: 07/18/21 Unknown 07/18/21 08:30 Labs: Abnormal Lab Results - Last 24 Hours (Table) 07/17/21 07/17/21 07/18/21 Range/Units 12:29 17:49 00:09 WBC (3.8-10.6) k/uL RBC (3.80-5.40) m/uL Hgb (11.4-16.0) gm/dL Hct (34.0-46.0) % MCHC (31.0-37.0) g/dL RDW (11.5-15.5) % Plt Count (150-450) k/uL Neutrophils # (1.3-7.7) k/uL Lymphocytes # (1.0-4.8) k/uL ABG pCO2 (35-45) mmHg ABG pO2 (83-108) mmHg ABG O2 Saturation (94-97) % Sodium (137-145) mmol/L Chloride (98-107) mmol/L BUN (7-17) mg/dL Creatinine (0.52-1.04) mg/dL Glucose (74-99) mg/dL POC Glucose (mg/dL) 126 H 134 H 150 H (75-99) mg/dL Calcium (8.4-10.2) mg/dL Total Bilirubin (0.2-1.3) mg/dL AST (14-36) U/L Total Protein (6.3-8.2) g/dL Albumin (3.5-5.0) g/dL 07/18/21 07/18/21 07/18/21 Range/Units 05:32 06:00 08:30 WBC (3.8-10.6) k/uL RBC (3.80-5.40) m/uL Hgb (11.4-16.0) gm/dL Hct (34.0-46.0) % MCHC (31.0-37.0) g/dL RDW (11.5-15.5) % Plt Count (150-450) k/uL Neutrophils # (1.3-7.7) k/uL Lymphocytes # (1.0-4.8) k/uL ABG pCO2 33 L (35-45) mmHg ABG pO2 114 H (83-108) mmHg ABG O2 Saturation 97.8 H (94-97) % Sodium 147 H (137-145) mmol/L Chloride 111 H (98-107) mmol/L BUN 104 H* (7-17) mg/dL Creatinine 4.57 H (0.52-1.04) mg/dL Glucose 151 H (74-99) mg/dL POC Glucose (mg/dL) 148 H (75-99) mg/dL Calcium 8.1 L (8.4-10.2) mg/dL Total Bilirubin 1.4 H (0.2-1.3) mg/dL AST 98 H (14-36) U/L Total Protein 5.3 L (6.3-8.2) g/dL Albumin 2.3 L (3.5-5.0) g/dL 07/18/21 Range/Units Unknown WBC 26.2 H (3.8-10.6) k/uL RBC 3.17 L (3.80-5.40) m/uL Hgb 8.8 L (11.4-16.0) gm/dL Hct 28.8 L (34.0-46.0) % MCHC 30.6 L (31.0-37.0) g/dL RDW 16.0 H (11.5-15.5) % Plt Count 112 L (150-450) k/uL Neutrophils # 24.6 H (1.3-7.7) k/uL Lymphocytes # 0.7 L (1.0-4.8) k/uL ABG pCO2 (35-45) mmHg ABG pO2 (83-108) mmHg ABG O2 Saturation (94-97) % Sodium (137-145) mmol/L Chloride (98-107) mmol/L BUN (7-17) mg/dL Creatinine (0.52-1.04) mg/dL Glucose (74-99) mg/dL POC Glucose (mg/dL) (75-99) mg/dL Calcium (8.4-10.2) mg/dL Total Bilirubin (0.2-1.3) mg/dL AST (14-36) U/L Total Protein (6.3-8.2) g/dL Albumin (3.5-5.0) g/dL Microbiology - Last 24 Hours (Table) 07/12/21 21:40 Blood Culture - Preliminary Blood No Growth after 120 hours 07/17/21 10:00 Bronchial Washings Culture - Preliminary Bronchial Washings - Random 07/17/21 10:00 Acid Fast Bacilli Culture - Preliminary Bronchial Washings - Random 07/17/21 10:00 Fungal Culture - Preliminary Bronchial Washings - Random 07/16/21 14:38 Blood Culture - Preliminary Blood No Growth after 24 hours Assessment and Plan Plan: Assessment: 1. Acute kidney injury secondary to ATN secondary to septic shock. Creatinine was 1.78 at admission and is 4.57 today. Urine output 30 cc per hour. Unknown baseline renal function. Noted to be KELLY positive, complements low and double- stranded DNA antibody 8. Hepatitis and ANCA negative. anti-GBM negative. No monoclonality Need to rule out GN - patient has history of lupus - on steroids which were started in the 2021. Also component of obstructive uropathy - status post left ureteral stent placement this admission. With multi-organ failure as well as thrombocytopenia, there is concern for antiphospholipid syndrome. 2. Septic shock secondary to pneumonia. Status post bronchoscopy. On vaso pressor support and antibiotics. 3. Metabolic acidosis secondary to acute kidney injury and IV fluids. Better. On oral bicarbonate. 4. Acute hypoxic respiratory failure secondary to pneumonia. Bronchial washings positive for Heidi. 5. Shock liver. AST and ALT trending down. 6. Hypokalemia from diuresis. Replaced. Improved. 7. Hypomagnesemia from diuresis. Replaced. Better. 8. Left-sided hydronephrosis. Urology following. Status post left ureteral stent placement 07/16/2021. 9. Hypernatremia from lack of oral water intake. 10. History of mitral valve repair. Plan: Maintain tube feeds. Start D5W at 50 mL an hour. Status post 80 mg IV Lasix given 07/13/2021 and 07/08/2021. Wean FiO2. Avoid nephrotoxins. Continue to monitor renal function and urine output. Maintain steroids. Dose increased today. Rheumatology following. Will consider kidney biopsy once hemodynamically stable. Continue to assess daily for need for renal replacement therapy. Check beta-2 microglobulin, cardiolipin antibody as well as lupus anticoagulant. Check lower extremity Dopplers to rule out DVT. Anticoagulation currently due to concern for brain hemorrhage. Check PTT as well. Case discussed with the composition teacher.
[2021-07-18] MEDS: CHLORHEXIDINE GLUCONATE 15 ML CUP MUCOUS MEM SCH ×2 (09:34→20:34)
[2021-07-18] MEDS: methylPREDNISolone SOD SUCCI 125 MG/2 ML VIAL IV SCH ×4 (09:34→23:21)
[2021-07-18] MEDS: PIPERACILLIN-TAZOBACTAM 3.375 GM in SODIUM CHLORIDE 0.9% 100 ML IVPB SCH ×2 (09:34→20:34)
[2021-07-18] MEDS: levETIRAcetam IV 500 MG in SODIUM CHLORIDE 0.9% 100 ML IVPB SCH ×2 (09:36→20:01)
[2021-07-18] MEDS: SODIUM BICARBONATE TAB 650 MG TAB PO SCH ×2 (09:36→20:34)
[2021-07-18] MEDS: DEXTROSE 5% IN WATER 1,000 ML IV SCH (09:38)
[2021-07-18] MEDS: SODIUM CHLORIDE 0.9% 150 ML with VASOPRESSIN 60 UNIT IV SCH ×2 (09:39)
--- NOTE | 2021-07-18 09:48 | XR ---
EXAMINATION TYPE: XR chest 1V portable DATE OF EXAM: 07/18/2021 COMPARISON: 07/17/2021 INDICATION: Acute respiratory failure TECHNIQUE: Single frontal view of the chest is obtained. FINDINGS: The heart size is normal. Prior cardiac valve surgery is evident. The pulmonary vasculature is prominent. Views increased lung markings are present bilaterally greater on the right than the left. This is inc reasing over the interval. Small left and minimal right pleural effusions are likely present. Endotra cheal tube tip is above the nicho. Nasogastric tube transverses the thorax. IMPRESSION: 1. Prominent pulmonary vascular markings with diffuse increased lung markings which is worsening over the interval. Correlate for pulmonary edema. 2. Small bilateral pleural effusions. 3. Follow-up is recommended.
--- NOTE | 2021-07-18 10:47 | US ---
EXAMINATION TYPE: US venous doppler duplex LE DATE OF EXAM: 07/18/2021 9:56 AM COMPARISON: NONE CLINICAL HISTORY: rule out DVT. bilateral edema SIDE PERFORMED: Bilateral TECHNIQUE: The lower extremity deep venous system is examined utilizing real time linear array sonog lin with graded compression, doppler sonography and color-flow sonography. VESSELS IMAGED: Common Femoral Vein Deep Femoral Vein Greater Saphenous Vein * Femoral Vein Popliteal Vein Small Saphenous Vein * Proximal Calf Veins (* superficial vessels) Limited compression images due to extensive edema, additional color images obtained. Right Leg: Negative for DVT Left Leg: Negative for DVT IMPRESSION: 1. Bilateral lower extremity ultrasound negative for deep venous thrombosis.
--- NOTE | 2021-07-18 10:55 | P.PN ---
Subjective Progress Note Date: 07/18/21 On 07/13/2021, the patient is being seen in intensive care unit for acute hypoxic respiratory failure/pneumonia/sepsis. The patient is a 69-year-old female who was seen in [facility] for some increased cough and congestion and hypoxemia. The patient subsequently decompensated. The patient went on a BiPAP and at a later stage, the patient had to be intubated and placed on a mechanical ventilator. The patient is known to have CAD, coronary artery bypass, and a previous history of pacemaker insertion. For now, the patient is being treated for a pneumonia and acute hypoxic respiratory failure. The patient had essentially a left lung pneumonia and the chest x-ray was showing extensive consolidation of the left lung for which the patient underwent a bronchoscopy and the bronchioloalveolar lavage of the left lung and there is also consistent with Heidi. The patient is currently covered with accommodation IV Zosyn and IV Eraxis. Meanwhile, the patient had a negative COVID 19 testing, blood culture was negative, and the patient remains sedated on top of for which is running at 20 mcg/kg per minute. The patient is on a combination of pressors and the patient is currently on physiologic dose of vasopressin at 0.03 units per minute and the patient is also on norepinephrine 0.83 mcg/kg per minute. Cardiac rhythm is paced with occasional PVCs. The patient is on a mechanical ventilator on assist control mode at a rate of 24 with a tidal volume of 400 and FiO2 of 50% with a PEEP of 10. The blood gases from today showed a pH of 7.26 with a pCO2 of 36 and pO2 of 146. The chest x- ray is showing some limited improvement in the left lung consolidation. The patient is still febrile and the patient is running a temperature of 100.2 this morning. In terms of blood work, the white cell count is on the rise and currently is up to 25.4 and hemoglobin is at 10.1 with a platelet count of 270. The patient has a acute kidney injury. Creatinine is up to 3.8 with a BUN of 53 and a sodium level of 140. Serum bicarbonate 16. The patient did have also a shock liver yesterday and the AST was 4763 with an ALT of 1213. The echo of the heart showed mild concentric LVH with mild aortic stenosis otherwise negative. Furthermore, the patient is admitted on long-term and to coagulation with warfarin. There is regarding his underlying atrial fibrillation. INR today is at 6.4.the patient has a left IJ triple lumen catheter in place. The patient also has a right radial arterial line. Urine output has been in the order of 20 mL over the past 8 hours. 07/14/2021, seeing the patient for a follow-up. The patient remains intubated on a mechanical ventilator. On today's evaluation, the patient remains on propofol which is running at 5 mcg/kg per minute. The propofol is being gradually weaned off an underlying mental status will be evaluated. Note that the patient has shown some signs of improvement over the past 24 hours. The pressors requirements are less compared to yesterday. This morning, the norepinephrine is running at 0.12 mics of respiratory kilo Per minute and the vasopressin remains in the physiologic dose. At the same time, the patient shows improvement in the shock liver and improvement in the acute kidney injury. In terms of ventilator support, the patient remains on assist control mode of mechanical ventilation at the rate of 24 with a tidal volume of 400 and a rate of 24 with an FiO2 of 40% and a PEEP of 8. The blood gases showed a pH of 7.45 with a pCO2 of 39 and pO2 of 74. The patient is on normal saline and the bicarb infusion has been discontinued by nephrology. Normal saline is running at the rate of 75 mL an hour. The patient was admitted to 23 with hemoglobin of 9.8 and the patient has a platelet count of 207. BUN is down to 61 with a creatinine of 3.98. Urine output is improved over the past 24 hours and overall fluid balance is impossible for 2 L over the past 24 hours. Antibiotic coverage remains a combination of IV Zosyn and IV Diflucan. No new cultures are available. The cultures from the sputum and the bronchioloalveolar lavage came back positive for Heidi albicans. On a separate note, The patient was given no Coumadin and the patient's INR is down to 2.5. The chest x-ray findings are essentially unchanged and the patient continues to have CHF, pacemaker on the left, triple-lumen catheter is in a good location and there is no evidence of any pneumothorax. The patient continues to have a left lower lobe and lingular consolidation. The ultrasound of the abdomen showed hydropic gallbladder, cholelithiasis was incidentally noted. Small amount of ascites was present. Bladder was within normal limits. The 2 feeds are currently on hold as the patient was having increased residuals. 07/15/2021, patient is being seen for a follow-up. This morning, the patient is off propofol and the patient has been off propofol since 10:00 yesterday morning. She is very sluggish. They're responsive to any painful stimulation. No seizure activity. At times she blinks and at times she withdraws to deep painful stimulation. As such, a CAT scan of the brain will be needed. at the same time, the patient remains on mechanical ventilator and today the patient is an assist-control mode rate of 24, tidal volume of 400, FiO2 of 40% with a PEEP of 8. The blood gas showed a pH of 7.42 with a pCO2 of 39 and pO2 of 124. The chest x-ray from today shows a pacemaker on the left. The patient has airspace disease present bilaterally. The patient has ongoing bilateral pulmonary infiltrates, interstitial edema/pulmonary edema. The patient remains on IV fluids with normal saline at the rate of 50 mL an hour. The patient is still on vasopressin physiologic dose and the patient is also on norepinephrine at 0.04 microvascular kilogram per minute. The LFTs continued to improve as the patient had developed shock liver. Therefore she continues to be impaired with a cath in of 3.92. Overall fluid balance has been +1.2 L over the past 24 hours. The patient remains in atrial fibrillation. INR is down to 1.2. Rest of the blood work shows a sodium level of 141, BUN of 66 with a creatinine of 3.9. The white cell count is 29 with a hemoglobin of 10.4. Meanwhile, the patient remains on Diflucan and IV Zosyn per IDs recommendation. 07/16 2021, patient is being seen for a follow-up. The patient remains in the intensive care unit. The patient remains off propofol and the patient off propofol for the past 48 hours. She is grimacing only to deep painful stimulation. She is not responsive and she's not awake and she's noncommunicating at this point in time. She withdraws in her extremities for deep painful elevation. Note that the patient underwent a computed tomography scan of the brain yesterday and the patient was found to haveA right parietal area focal hemorrhagic infarct and 7 CAT scan of the brain were done, to yesterday and 1 today which showed no significant change in the size of this abnormality. Based on the radiologist's interpretation, the findings suspicious for hemorrhagic metastatic disease knowing that there was some vasogenic edema surrounding the abdomen 5 mm focus in the right parietal lobe. Neurologist on the case and the patient was orally started on IV Keppra. EEG of the brain showed diffuse slowing consistent with metabolic encephalopathy. Meanwhile, the patient is on a mechanical ventilator. This morning, the patient is an assist-control mode rate of tidal volume of 400 and a FiO2 of 40% with a PEEP of 6. The patient's pH is at 7.41 with a pCO2 of 35 and pO2 112. Chest x-ray still showing a dense infiltration of the left lower lobe. The patient's INR today is at 1.4 and the patient was given additional 5 mg of vitamin K ye day. The patient is currently off norepinephrine infusion. Hemodynamically more stable. Vasopressin will be also discontinued and the patient continues to be of normal saline at the rate of 75 mL an hour. Nevertheless, the creatinine still elevated at 4.1. Ultrasound the kidneys showed some hydronephrosis of the left kidney and for that reason urology has been involved and the patient will likely need a cystoscopy and retrograde pyelogram with possible stent insertion specially the patient's renal function continues to be quite impaired. On today's blood work, the patient's BUN is at 73 with a creatinine of 4.1, sodium level is at 141, the white cell count is at 33 with a hemoglobin of 9.7 and a platelet count of 147. Note that the patient had developed shock with multisystem organ failure including acute kidney injury and acute liver injury/shock liver. Renal function continues to be. With a creatinine of 4.1 despite ongoing improvement urine output. LFTs continued to improve. Ammonia levels are low. The patient is still receiving enteral feeding for nutritional support. The patient is tolerating a diet without any major difficulties. By the coverage, the patient remains on IV Zosyn and the patient is also on oral Diflucan Infectious diseases remains on the case. 07/18/2031, the patient is being seen for a follow-up. The patient has been still off sedation and this is going into 72 hours. She has again grimacing to deep painful sedation. On today's evaluation, she was opening his eyes spontaneously, nevertheless, the patient was not following any commands. The patient is off propofol. The patient was taken off the norepinephrine infusion and patient is also on low-dose vasopressin at 0.02 units an hour and this will be discontinued. Note that the patient's hemodynamics is improved considerably. Meanwhile, a CAT scan of the chest that was done yesterday showed worsening in the left lung consolidation. For that reason, repeat bronchoscopy and the bronchioloalveolar lavage of the left lung was done. He was some purulent material originating from the left lower lobe that was suctioned out and the lavage of the left lower lobe was done. The patient for now is on examination of antibiotics and he is receiving fluconazole and Zosyn. The patient is afebrile for now. They patient is on a mechanical ventilator on assist control mode with a rate of 24, tidal volume of 400, FiO2 of 30% with a PEEP of 6. The patient is at 7.39 with a pCO2 of 32 and pO2 of 95. The patient was a remains elevated at 33. The patient's renal function continues to be impaired with a BUN of 84 creatinine of 4.3. Note that the patient had a left ureteral stent inserted yesterday for an underlying hydronephrosis. The patient has a sodium level of 143 with a potassium level of 4.4. Overall that fluid balance has been +1.3 L over the past 24 hours. No other the patient's protest on 11 from 2 days back was quite elevated at 15.3. The patient remains on bronchodilators. The patient remains on IV Solu Medrol 60 mg every 12 hours. The findings on the case. The patient is also receiving enteral feeding for nutritional support. The liver function tests continued to improve as the patient is recovering from a shock liver. As for the CAT scan of the brain, neurologist on the case and the patient has a stable bleed in the right parietal lobe. The patient was started on Keppra as an empiric antibiotic coverage. No seizure activity has been noted. Coagulation profile is been reversed and the patient's INR is down to 1.2. 07/18/2021, patient is being seen for a follow-up. I had a lengthy discussion regarding this case with the various consultants including nephrology and also appreciated today rheumatology consultation. In summary, the patient has history of lupus and further blood work that was obtained during the current hospital stay showed that the patient had a positive KELLY, complement levels including C3 and C4 were low and the levels were 20 and 2 respectively and the patient's CHF 50 level was also low at less than 14. Hmoh-itrzog-qztltwle DNA was also positive. This explains the patient being on Plaquenil outpatient basis. There is a concern for an acute exacerbation, lupus pneumonitis/encephalitis/nephropathy. However this is not certain. Noted the patient went into septic event possibility of a pneumonia and the patient had shock and multisystem organ failure including acute kidney injury and acute sh ock liver. Nevertheless, the renal function is not completely recovered. The hepatic function is improving and the LFTs are also improving. The patient is currently off pressors. For that reason, the patient was started on Solu-Medrol and I'm going to modify the Solu-Medrol dose. Clinically, the patient remains off sedation. There was a concern for a bleed in the right parietal lobe and a repeat CAT scan was done that showed no evidence of any acute bleeding or any progression of the spots that was noted earlier and the area had seemed to be diminished in size. The patient remains on a mechanical ventilator. She is grimacing to painful stimulation. She is more active in terms of body movements on today's evaluation. She is following any commands at. She is on assist- control mode rate of 24, tidal volume of 400, FiO2 of 30% with a PEEP of 6. Chest x-ray still showing extensive consolidation of the left lung. Bronchial lavage of the left lung was done yesterday and results are still pending. The pH is at 7.44 with a pCO2 of 33 and pO2 of 114. She is receiving enteral fee ding for nutritional support with vital AF at the rate of 30 mL an hour. The patient's BUN is at 104 with a creatinine of 4.5, serum bicarb is 24 with a sodium level of 147, BUN is 104, the white cell, 26 with a hemoglobin of 8.8 and a platelet count of 112. Overall fluid balance is +968 mL over the past 24 hours. She is afebrile for now. She is off the pressors. Objective - Vital Signs Vital signs: Vital Signs Temp 98 F 07/18/21 04:00 Pulse 77 07/18/21 07:36 Resp 24 07/18/21 07:00 BP 123/71 07/18/21 07:00 Pulse Ox 94 L 07/18/21 07:00 Intake & Output 07/17/21 07/18/21 07/18/21 18:59 06:59 18:59 Intake Total 492.129 9861 30 Output Total 470 440 20 Balance 485.166 570 10 Weight 77 kg Intake: IV 935 440 10 .9 kvo 835 140 10 Fluconazole in NaCl,Iso- 100 Osm 200 mg In Saline 1 100ml.bag @ 100 mls/hr IVPB Q24H [facility] Rx#: [id number] Piperacillin-Tazobactam 3 100 .375 gm In Sodium Chloride 0.9% 100 ml @ 25 mls/hr IVPB Q8HR [facility] Rx# :[id number] levETIRAcetam IV 500 mg 100 100 In Sodium Chloride 0.9% 100 ml @ 400 mls/hr IVPB Q12HR [facility] Rx#:[id number] Intake, IV Titration 0.166 Amount Sodium Chloride 0.9% 150 0.166 ml @ Titrate IV .Q24H [facility] with Vasopressin 60 unit Rx#:[id number] Tube Feeding 20 170 20 Other 400 Output: Urine 470 440 20 Other: Voiding Method Indwelling Catheter Indwelling Catheter # Voids 3 ABP, PAP, CO, CI - Last Documented Arterial Blood Pressure 96/94 - Exam Currently intubated and mechanically ventilated. There is an orally placed endotracheal tube and NG tube.the patient is sedated and calm and comfortable, the patient is unresponsive while being off sedation for the past 72 hours. Head exam was generally normal. There was no scleral icterus or corneal arcus. Mucous membranes were moist. HEENT examination is grossly unremarkable. Neck supple. Full range of motion. No adenopathy thyromegaly or neck vein distention. Cardiovascular examination reveals regular rhythm rate. S1-S2 normal. No S3 or S4. No discernible murmur noted. Heart sounds are very distant. Lungs reveal coarse bilateral rhonchi. No wheezes. No crackles. Abnormal lung sounds are greatler in the left chest. Abdomen soft bowel sounds are heard. No masses or tenderness. Extremities are intact. No cyanosis clubbing there is a buildup of edema in all 4 extremities Examination of the skin revealed no evidence of significant rashes, suspicious appearing nevi or other concerning lesions. Neurologic examination is showing 3 mm pupil was sluggish and reactive to light no nystagmus. No clonus. No significant response to withdrawal to painful simulation. Reflexes are equal and symmetrical in all 4 extremities. No neck stiffness. No facial asymmetry. There is positive cough and a gag although weak. The patient only grimaces to deep painful stimulation. Otherwise, no response to verbal stimulation. The patient is opening her eyes spontaneously and the patient is grimacing to deep painful stimulation. - Labs CBC & Chem 7: 07/18/21 Unknown 07/18/21 08:30 Labs: Abnormal Lab Results - Last 24 Hours (Table) 07/17/21 07/17/21 07/18/21 Range/Units 12:29 17:49 00:09 WBC (3.8-10.6) k/uL RBC (3.80-5.40) m/uL Hgb (11.4-16.0) gm/dL Hct (34.0-46.0) % MCHC (31.0-37.0) g/dL RDW (11.5-15.5) % Plt Count (150-450) k/uL Neutrophils # (1.3-7.7) k/uL Lymphocytes # (1.0-4.8) k/uL ABG pCO2 (35-45) mmHg ABG pO2 (83-108) mmHg ABG O2 Saturation (94-97) % Sodium (137-145) mmol/L Chloride (98-107) mmol/L BUN (7-17) mg/dL Creatinine (0.52-1.04) mg/dL Glucose (74-99) mg/dL POC Glucose (mg/dL) 126 H 134 H 150 H (75-99) mg/dL Calcium (8.4-10.2) mg/dL Total Bilirubin (0.2-1.3) mg/dL AST (14-36) U/L ALT (4-34) U/L Total Protein (6.3-8.2) g/dL Albumin (3.5-5.0) g/dL 07/18/21 07/18/21 07/18/21 Range/Units 05:32 06:00 08:30 WBC (3.8-10.6) k/uL RBC (3.80-5.40) m/uL Hgb (11.4-16.0) gm/dL Hct (34.0-46.0) % MCHC (31.0-37.0) g/dL RDW (11.5-15.5) % Plt Count (150-450) k/uL Neutrophils # (1.3-7.7) k/uL Lymphocytes # (1.0-4.8) k/uL ABG pCO2 33 L (35-45) mmHg ABG pO2 114 H (83-108) mmHg ABG O2 Saturation 97.8 H (94-97) % Sodium 147 H (137-145) mmol/L Chloride 111 H (98-107) mmol/L BUN 104 H* (7-17) mg/dL Creatinine 4.57 H (0.52-1.04) mg/dL Glucose 151 H (74-99) mg/dL POC Glucose (mg/dL) 148 H (75-99) mg/dL Calcium 8.1 L (8.4-10.2) mg/dL Total Bilirubin 1.4 H (0.2-1.3) mg/dL AST 98 H (14-36) U/L ALT 451 H (4-34) U/L Total Protein 5.3 L (6.3-8.2) g/dL Albumin 2.3 L (3.5-5.0) g/dL 07/18/21 Range/Units Unknown WBC 26.2 H (3.8-10.6) k/uL RBC 3.17 L (3.80-5.40) m/uL Hgb 8.8 L (11.4-16.0) gm/dL Hct 28.8 L (34.0-46.0) % MCHC 30.6 L (31.0-37.0) g/dL RDW 16.0 H (11.5-15.5) % Plt Count 112 L (150-450) k/uL Neutrophils # 24.6 H (1.3-7.7) k/uL Lymphocytes # 0.7 L (1.0-4.8) k/uL ABG pCO2 (35-45) mmHg ABG pO2 (83-108) mmHg ABG O2 Saturation (94-97) % Sodium (137-145) mmol/L Chloride (98-107) mmol/L BUN (7-17) mg/dL Creatinine (0.52-1.04) mg/dL Glucose (74-99) mg/dL POC Glucose (mg/dL) (75-99) mg/dL Calcium (8.4-10.2) mg/dL Total Bilirubin (0.2-1.3) mg/dL AST (14-36) U/L ALT (4-34) U/L Total Protein (6.3-8.2) g/dL Albumin (3.5-5.0) g/dL Microbiology - Last 24 Hours (Table) 07/17/21 10:00 Gram Stain - Preliminary Bronchial Washings - Random Bronchial Washings Culture - Preliminary 07/12/21 21:40 Blood Culture - Preliminary Blood No Growth after 120 hours 07/17/21 10:00 Acid Fast Bacilli Culture - Preliminary Bronchial Washings - Random 07/17/21 10:00 Fungal Culture - Preliminary Bronchial Washings - Random 07/16/21 14:38 Blood Culture - Preliminary Blood No Growth after 24 hours Assessment and Plan Plan: Acute hypoxemic respiratory failure secondary to left lung pneumonia,multifocal, status post intubation and mechanical ventilation as well as bronchoscopy on 07/11/2021.the results of the bronchoscopy is indicating Heidi albicans and the patient is currently on a combination of antibiotics including IV Zosyn and Diflucan, infectious disease on the case.. Chest x-ray findings are stable and unchanged and the patient's oxidation remains stable while being on an FiO2 of 30% with a PEEP of 6. Nevertheless, the computed tomography scan of the chest that was done on 07/16/2021 showed extensive consolidation of the left lung along the left lower lobe and left upper lobe and this has gotten terribly worse. Based on that, the patient another bronchoscopy with lavage of the left lower lobe was done yesterday on 07/17/2021 and the results are still pending for now. Other possibilities include possible lupus pneumonitis. Septic shock with multisystem organ failure, hemodynamically stable and the patient is currently off pressors History of lupus. For now, the patient has positive KELLY, positive jsod-[id number]-[id number] DNA, and a complements are low. Patient was maintained on Plaquenil on outpatient basis. Altered mentation and the patient remains unresponsive and she remains off sedation. CAT scan of the brain there was repeated was noted and there is diminishment in the right parietal area of bleed. [employer] hemorrhagic bleed involving the right parietal lobe, measuring 5 mm in size, stable since yesterday based on series of CAT scans of the brain. The patient's coagulopathy has been reversed and the patient's INR is currently down to 1.2 and the patient was given vitamin K. Coumadin is on hold for now. EEG was noted any sores encephalopathy, likely metabolic in nature. Neurologist on the case. Please refer to the follow-up CAT scan of the brain that showed area being diminished. Acute kidney injury, secondary to above, urine output is improved compared to yesterday, the patient remains in a positive fluid balance. There is suggestion for hydronephrosis and a CAT scan of the abdomen and pelvis will be done to eval uate renal status and renal system.. The patient will be evaluated by urology and the patient had cystoscopy and retrograde pyelogram/ stenting regarding the underlying hydronephrosis. Lupus nephropathy is felt to be less likely. This is probably related to an ATN secondary to shock/hypotension. Acute shock liver, LFTs are improving History of COPD from previous significant tobacco use. History of hypertension. History of hyperlipidemia. Status post pacemaker implantation. coronary artery disease with previous coronary artery bypass surgery Valvular heart surgery as the patient has a well-healed looks to be a mitral valve ring on the chest x-ray acute leukocytosis, stable, unchanged Acute Coumadin toxicity, treated and recovered Thrombocytopenia, evolving Plan Continue ventilator support Monitor mental status and consider the possibility of lumbar puncture and this will discuss with neurology the CAT scan of the brain was repeated and the results were noted. The area and the right parietal lobe is diminished The patient is currently off pressors Cystoscopy done with insertion of ureteral stent regarding left-sided hydronephrosis Monitor urine output Monitor electrolytes Continue the same antibiotic coverage includes a combination of Diflucan and Zosyn Hold Coumadin Review the Solu Medrol dose to 125 mg every 6 hours Check Doppler of the lower extremities Check anticardiolipin antibodies, lupus anticoagulant and beta-2 microglobulin Monitor LFTs , levels are essentially improving Keep the patient off sedation Continue enteral feeding for nutritional support Condition is extremely critical and will continue to follow make further recommendations based on his progress. This evaluation was on a more than 35 minutes of this is a critically care evalu ation and the patient carries a very poor prognosis based on presence of septic shock with multisystem organ failure. Time with Patient: Greater than 30
[2021-07-18 12:39] LABS: Glucose,Whole Blood 181 mg/dL (75-99)
--- NOTE | 2021-07-18 12:46 | P.PN ---
Subjective Progress Note Date: 07/18/21 Creat is persistently elevated post stent, creatinine now 4.5, still making adequate UO Objective - Vital Signs Vital signs: Vital Signs Temp 98 F 07/18/21 04:00 Pulse 76 07/18/21 11:24 Resp 24 07/18/21 07:00 BP 123/71 07/18/21 07:00 Pulse Ox 94 L 07/18/21 07:00 Intake & Output 07/17/21 07/18/21 07/18/21 18:59 06:59 18:59 Intake Total 351.709 9392 30 Output Total 470 440 20 Balance 485.166 570 10 Weight 77 kg Intake: IV 935 440 10 .9 kvo 835 140 10 Fluconazole in NaCl,Iso- 100 Osm 200 mg In Saline 1 100ml.bag @ 100 mls/hr IVPB Q24H [facility] Rx#: [id number] Piperacillin-Tazobactam 3 100 .375 gm In Sodium Chloride 0.9% 100 ml @ 25 mls/hr IVPB Q8HR [facility] Rx# :[id number] levETIRAcetam IV 500 mg 100 100 In Sodium Chloride 0.9% 100 ml @ 400 mls/hr IVPB Q12HR [facility] Rx#:[id number] Intake, IV Titration 0.166 Amount Sodium Chloride 0.9% 150 0.166 ml @ Titrate IV .Q24H [facility] with Vasopressin 60 unit Rx#:[id number] Tube Feeding 20 170 20 Other 400 Output: Urine 470 440 20 Other: Voiding Method Indwelling Catheter Indwelling Catheter Indwelling Catheter # Voids 3 ABP, PAP, CO, CI - Last Documented Arterial Blood Pressure 96/94 - Labs CBC & Chem 7: 07/18/21 Unknown 07/18/21 08:30 Labs: Abnormal Lab Results - Last 24 Hours (Table) 07/17/21 07/18/21 07/18/21 Range/Units 17:49 00:09 05:32 WBC (3.8-10.6) k/uL RBC (3.80-5.40) m/uL Hgb (11.4-16.0) gm/dL Hct (34.0-46.0) % MCHC (31.0-37.0) g/dL RDW (11.5-15.5) % Plt Count (150-450) k/uL Neutrophils # (1.3-7.7) k/uL Lymphocytes # (1.0-4.8) k/uL ABG pCO2 (35-45) mmHg ABG pO2 (83-108) mmHg ABG O2 Saturation (94-97) % Sodium (137-145) mmol/L Chloride (98-107) mmol/L BUN (7-17) mg/dL Creatinine (0.52-1.04) mg/dL Glucose (74-99) mg/dL POC Glucose (mg/dL) 134 H 150 H 148 H (75-99) mg/dL Calcium (8.4-10.2) mg/dL Total Bilirubin (0.2-1.3) mg/dL AST (14-36) U/L ALT (4-34) U/L Total Protein (6.3-8.2) g/dL Albumin (3.5-5.0) g/dL 07/18/21 07/18/21 07/18/21 Range/Units 06:00 08:30 12:37 WBC (3.8-10.6) k/uL RBC (3.80-5.40) m/uL Hgb (11.4-16.0) gm/dL Hct (34.0-46.0) % MCHC (31.0-37.0) g/dL RDW (11.5-15.5) % Plt Count (150-450) k/uL Neutrophils # (1.3-7.7) k/uL Lymphocytes # (1.0-4.8) k/uL ABG pCO2 33 L (35-45) mmHg ABG pO2 114 H (83-108) mmHg ABG O2 Saturation 97.8 H (94-97) % Sodium 147 H (137-145) mmol/L Chloride 111 H (98-107) mmol/L BUN 104 H* (7-17) mg/dL Creatinine 4.57 H (0.52-1.04) mg/dL Glucose 151 H (74-99) mg/dL POC Glucose (mg/dL) 181 H (75-99) mg/dL Calcium 8.1 L (8.4-10.2) mg/dL Total Bilirubin 1.4 H (0.2-1.3) mg/dL AST 98 H (14-36) U/L ALT 451 H (4-34) U/L Total Protein 5.3 L (6.3-8.2) g/dL Albumin 2.3 L (3.5-5.0) g/dL 07/18/21 Range/Units Unknown WBC 26.2 H (3.8-10.6) k/uL RBC 3.17 L (3.80-5.40) m/uL Hgb 8.8 L (11.4-16.0) gm/dL Hct 28.8 L (34.0-46.0) % MCHC 30.6 L (31.0-37.0) g/dL RDW 16.0 H (11.5-15.5) % Plt Count 112 L (150-450) k/uL Neutrophils # 24.6 H (1.3-7.7) k/uL Lymphocytes # 0.7 L (1.0-4.8) k/uL ABG pCO2 (35-45) mmHg ABG pO2 (83-108) mmHg ABG O2 Saturation (94-97) % Sodium (137-145) mmol/L Chloride (98-107) mmol/L BUN (7-17) mg/dL Creatinine (0.52-1.04) mg/dL Glucose (74-99) mg/dL POC Glucose (mg/dL) (75-99) mg/dL Calcium (8.4-10.2) mg/dL Total Bilirubin (0.2-1.3) mg/dL AST (14-36) U/L ALT (4-34) U/L Total Protein (6.3-8.2) g/dL Albumin (3.5-5.0) g/dL Microbiology - Last 24 Hours (Table) 07/17/21 10:00 Gram Stain - Preliminary Bronchial Washings - Random Bronchial Washings Culture - Preliminary 07/12/21 21:40 Blood Culture - Preliminary Blood No Growth after 120 hours 07/17/21 10:00 Acid Fast Bacilli Culture - Preliminary Bronchial Washings - Random 07/17/21 10:00 Fungal Culture - Preliminary Bronchial Washings - Random 07/16/21 14:38 Blood Culture - Preliminary Blood No Growth after 24 hours Assessment and Plan Assessment: 71-year-old female admitted to the hospital with sepsis secondary to pneumonia, and acute kidney injury. Underwent left stent placement on 4/28, no improvement in creatinine following stent insertion on admission was 1.78. Baseline is unknown. CT showed left-sided hydronephrosis, -We'll continue to trend creatinine -Given lack of improvement of creatinine with stent insertion we'll plan on removing the stent as an outpatient. discussed risk of stent encrustation with daughter extensively. We'll plan removing the stent in 4-6 weeks as an outpatient
[2021-07-18] MEDS: NOREPINEPHRINE 32 MG in SODIUM CHLORIDE 0.9% 218 ML IV SCH (13:21)
--- NOTE | 2021-07-18 13:54 | PN ---
PROGRESS NOTE This 71-year-old white female presented with elevated creatinine post stent. Creatinine is up to 4.5, making adequate urine output. Discussed the case Dr. Zapata, senior controls analyst. We discussed possible antiphospholipid syndrome autoimmune disease on top of what is going on now as reason for the elevated creatinine, metabolic encephalopathy. Will run some tests for this. She continues to wean off vasopressors and broad-spectrum antibiotics she is still on. Temperature 98, pulse 76, respiratory rate 20 to 24, blood pressure 123/70, O2 94. She is breathing comfortably on vent. Labs reviewed. BUN is 104, creatinine is 4.57. Sugars are mid 100s. Sodium 147, calcium 8.1. Total bilirubin is 1.4, ALT is 451. Albumin is 2.3. White count is down to 26.2, which is improved. ASSESSMENT: [id number]-pyct-old female admitted with sepsis secondary to pneumonia, acute kidney injury, status post stent placement of the left ureter. Pending creatinine, we are looking for some autoimmune diseases, as CRP and procalcitonin are improving. Will continue on current treatments. She appears to be making urine and is relatively stable. She had negative DVTs in both legs. Prognosis is guarded. Hopefully IV Solu- Medrol that has been increased today will help her with some autoimmune disease possibility. Continue to monitor closely. sodium bicarb. Broad-spectrum antibiotics. Tube feeding, etc. Prognosis guarded. MMODL / IJN: [id number] /
--- NOTE | 2021-07-18 14:51 | P.PN ---
Subjective Progress Note Date: 07/18/21 The patient is a 71-year-old female who is seen in neurologic follow- up on July 18, 2021, via teleneurology. The chart has been reviewed. According to the patient's nurse this morning, the patient is somewhat more easily agitated. She is grimacing in response to noxious stimulation. She does open her eyes slightly in response to noxious stimulation. She is not following commands. There has been no seizure activity observed. CT scan of the brain was repeated this morning. The area of hemorrhage appears to be less dense, resolving. The patient's daughter is present at the time of the evaluation. The daughter reports that her mother may be aware that she is present. The daughter has not observed any spontaneous movement. Objective - Vital Signs Vital signs: Vital Signs Temp 98 F 07/18/21 04:00 Pulse 76 07/18/21 11:24 Resp 24 07/18/21 07:00 BP 123/71 07/18/21 07:00 Pulse Ox 94 L 07/18/21 07:00 Intake & Output 07/17/21 07/18/21 07/18/21 18:59 06:59 18:59 Intake Total 357.337 2849 30 Output Total 470 440 20 Balance 485.166 570 10 Weight 77 kg Intake: IV 935 440 10 .9 kvo 835 140 10 Fluconazole in NaCl,Iso- 100 Osm 200 mg In Saline 1 100ml.bag @ 100 mls/hr IVPB Q[facility]H [facility] Rx#: [id number] Piperacillin-Tazobactam 3 100 .375 gm In Sodium Chloride 0.9% 100 ml @ 25 mls/hr IVPB Q8HR [facility] Rx# :[id number] levETIRAcetam IV 500 mg 100 100 In Sodium Chloride 0.9% 100 ml @ 400 mls/hr IVPB Q12HR [facility] Rx#:[id number] Intake, IV Titration 0.166 Amount Sodium Chloride 0.9% 150 0.166 ml @ Titrate IV .Q24H [facility] with Vasopressin 60 unit Rx#:[id number] Tube Feeding 20 170 20 Other 400 Output: Urine 470 440 20 Other: Voiding Method Indwelling Catheter Indwelling Catheter Indwelling Catheter # Voids 3 ABP, PAP, CO, CI - Last Documented Arterial Blood Pressure 96/94 - Exam Gen.: The patient is reclining in the bed. There is no sedation on board. She is in no acute distress. HEENT: Head is atraumatic, normocephalic. Fundus not visualized. There is no scleral icterus. Mucous membranes are moist. Heart: Regular rate and rhythm Neurologic examination Mental status: The patient is not responsive to verbal stimulation. There is no eye opening. She follows no commands. The patient does open her eyes slightly to noxious stimulation and does grimace. Cranial nerves: Pupils are equal at 3 mm and reactive. There is no obvious facial asymmetry. Gag reflex is intact. Sensation: There is no withdrawal of extremities from noxious stimulation. Motor: There is no spontaneous movement - Labs CBC & Chem 7: 07/18/21 Unknown 07/18/21 08:30 Labs: Abnormal Lab Results - Last 24 Hours (Table) 07/17/21 07/18/21 07/18/21 Range/Units 17:49 00:09 05:32 WBC (3.8-10.6) k/uL RBC (3.80-5.40) m/uL Hgb (11.4-16.0) gm/dL Hct (34.0-46.0) % MCHC (31.0-37.0) g/dL RDW (11.5-15.5) % Plt Count (150-450) k/uL Neutrophils # (1.3-7.7) k/uL Lymphocytes # (1.0-4.8) k/uL ABG pCO2 (35-45) mmHg ABG pO2 (83-108) mmHg ABG O2 Saturation (94-97) % Sodium (137-145) mmol/L Chloride (98-107) mmol/L BUN (7-17) mg/dL Creatinine (0.52-1.04) mg/dL Glucose (74-99) mg/dL POC Glucose (mg/dL) 134 H 150 H 148 H (75-99) mg/dL Calcium (8.4-10.2) mg/dL Total Bilirubin (0.2-1.3) mg/dL AST (14-36) U/L ALT (4-34) U/L Total Protein (6.3-8.2) g/dL Albumin (3.5-5.0) g/dL 07/18/21 07/18/21 07/18/21 Range/Units 06:00 08:30 12:37 WBC (3.8-10.6) k/uL RBC (3.80-5.40) m/uL Hgb (11.4-16.0) gm/dL Hct (34.0-46.0) % MCHC (31.0-37.0) g/dL RDW (11.5-15.5) % Plt Count (150-450) k/uL Neutrophils # (1.3-7.7) k/uL Lymphocytes # (1.0-4.8) k/uL ABG pCO2 33 L (35-45) mmHg ABG pO2 114 H (83-108) mmHg ABG O2 Saturation 97.8 H (94-97) % Sodium 147 H (137-145) mmol/L Chloride 111 H (98-107) mmol/L BUN 104 H* (7-17) mg/dL Creatinine 4.57 H (0.52-1.04) mg/dL Glucose 151 H (74-99) mg/dL POC Glucose (mg/dL) 181 H (75-99) mg/dL Calcium 8.1 L (8.4-10.2) mg/dL Total Bilirubin 1.4 H (0.2-1.3) mg/dL AST 98 H (14-36) U/L ALT 451 H (4-34) U/L Total Protein 5.3 L (6.3-8.2) g/dL Albumin 2.3 L (3.5-5.0) g/dL 07/18/21 Range/Units Unknown WBC 26.2 H (3.8-10.6) k/uL RBC 3.17 L (3.80-5.40) m/uL Hgb 8.8 L (11.4-16.0) gm/dL Hct 28.8 L (34.0-46.0) % MCHC 30.6 L (31.0-37.0) g/dL RDW 16.0 H (11.5-15.5) % Plt Count 112 L (150-450) k/uL Neutrophils # 24.6 H (1.3-7.7) k/uL Lymphocytes # 0.7 L (1.0-4.8) k/uL ABG pCO2 (35-45) mmHg ABG pO2 (83-108) mmHg ABG O2 Saturation (94-97) % Sodium (137-145) mmol/L Chloride (98-107) mmol/L BUN (7-17) mg/dL Creatinine (0.52-1.04) mg/dL Glucose (74-99) mg/dL POC Glucose (mg/dL) (75-99) mg/dL Calcium (8.4-10.2) mg/dL Total Bilirubin (0.2-1.3) mg/dL AST (14-36) U/L ALT (4-34) U/L Total Protein (6.3-8.2) g/dL Albumin (3.5-5.0) g/dL Microbiology - Last 24 Hours (Table) 07/17/21 10:00 Gram Stain - Preliminary Bronchial Washings - Random Bronchial Washings Culture - Preliminary 07/12/21 21:40 Blood Culture - Preliminary Blood No Growth after 120 hours 07/17/21 10:00 Acid Fast Bacilli Culture - Preliminary Bronchial Washings - Random 07/17/21 10:00 Fungal Culture - Preliminary Bronchial Washings - Random 07/16/21 14:38 Blood Culture - Preliminary Blood No Growth after 24 hours Assessment and Plan Assessment: 1. Toxic metabolic encephalopathy 2. Small right parietal hemorrhage, resolving 3. Supra therapeutic INR Plan: 1. In light of current CT scan showing resolving hemorrhage, repeat head CT is not necessary unless there is marked worsening of the patient's mental status and lateralizing findings 2. Your medical management 3. Neurology will sign off at this time. Please call with questions or concerns. Time with Patient: Less than 30 (spent 15 minutes in neurologic follow-up this patient via telemedicine)
[2021-07-18 17:18] LABS: Glucose,Whole Blood 187 mg/dL (75-99)
[2021-07-18] MEDS: FLUCONAZOLE IN NACL,ISO-OSM 200 MG in SALINE 1 100ML.BAG IVPB SCH (17:24)
[2021-07-18] MEDS: SODIUM CHLORIDE 0.9% 1,000 ML IV SCH (17:32)
[2021-07-18 23:13] LABS: Glucose,Whole Blood 175 mg/dL (75-99)
[2021-07-19] MEDS: IPRATROPIUM-ALBUTEROL 3 ML NEB INHALATION SCH ×5 (03:11→19:59)
[2021-07-19] MEDS: DEXTROSE 5% IN WATER 1,000 ML IV SCH (04:21)
[2021-07-19 05:56] LABS: ABG Base Excess -2.2 mmol/L; ABG HCO3 22 mmol/L (21-25); ABG Oxygen Saturation 96.5 % (94-97); ABG PCO2 35 mmHg (35-45); ABG PH 7.41 (7.35-7.45); ABG PO2 87 mmHg (83-108); ABG TCO2 24 mmol/L (19-24); Allen Test Performed? Yes
[2021-07-19 06:12] LABS: Glucose,Whole Blood 249 mg/dL (75-99)
[2021-07-19 06:12] LABS: Glucose,Whole Blood 232 mg/dL (75-99)
[2021-07-19] MEDS: METOCLOPRAMIDE 5 MG/ML 2 ML VIAL IVP SCH ×3 (06:21→18:09)
[2021-07-19] MEDS: methylPREDNISolone SOD SUCCI 125 MG/2 ML VIAL IV SCH ×3 (06:21→18:10)
[2021-07-19] MEDS: INSULIN ASPART (NovoLOG) 100 UNIT/ML VIAL SQ SCH ×3 (06:22→18:09)
[2021-07-19] MEDS: PIPERACILLIN-TAZOBACTAM 3.375 GM in SODIUM CHLORIDE 0.9% 100 ML IVPB SCH ×2 (07:58→21:37)
[2021-07-19] MEDS: levETIRAcetam IV 500 MG in SODIUM CHLORIDE 0.9% 100 ML IVPB SCH ×2 (07:58→21:37)
[2021-07-19] MEDS: SODIUM BICARBONATE TAB 650 MG TAB PO SCH ×2 (07:58→21:37)
[2021-07-19] MEDS: CHLORHEXIDINE GLUCONATE 15 ML CUP MUCOUS MEM SCH ×2 (07:58→21:37)
[2021-07-19 08:09] LABS: Anisocytosis Slight; Basophils % (A) 0 %; Eosinophils % (A) 0 %; HCT 27.2 % (34.0-46.0); HGB 8.4 gm/dL (11.4-16.0); Hypochromasia Moderate; Lymphocytes # (A) 0.3 k/uL (1.0-4.8); Lymphocytes % (A) 2 %; MCH 28.3 pg (25.0-35.0); Mean Platelet Volume 11.7; Monocytes # (A) 0.3 k/uL (0-1.0); Monocytes % (A) 2 %; Neutrophils % (A) 96 %; Platelet Count 108 k/uL (150-450); RBC 2.99 m/uL (3.80-5.40); WBC 15.7 k/uL (3.8-10.6)
[2021-07-19 08:22] LABS: Albumin 2.3 g/dL (3.5-5.0); Calcium 7.7 mg/dL (8.4-10.2); Potassium 3.8 mmol/L (3.5-5.1); Total Bilirubin 1.2 mg/dL (0.2-1.3); Total Protein 5.4 g/dL (6.3-8.2)
--- NOTE | 2021-07-19 08:23 | XR ---
EXAMINATION TYPE: XR chest 1V portable DATE OF EXAM: 07/19/2021 COMPARISON: 07/18/2021 INDICATION: Acute respiratory failure TECHNIQUE: Single frontal view of the chest is obtained. FINDINGS: The heart size is normal. The pulmonary vasculature is indistinct. Diffuse increased lung markings within the left lung and to a milder degree right. Small bilateral p leural effusions are present. Endotracheal tube tip is above nicho. Nasogastric tube transverses the thorax, distal tip is out of the [id number]. Sternotomy wires from prior cardiac valve surgery are evident. IMPRESSION: 1. Findings similar to prior examination. Continued follow-up is recommended.
[2021-07-19] MEDS ORDERED: FUROSEMIDE 10 MG/ML 10 ML VIAL IV STA (08:30)
--- NOTE | 2021-07-19 09:00 | P.PN ---
Subjective Progress Note Date: 07/19/21 On 07/13/2021, the patient is being seen in intensive care unit for acute hypoxic respiratory failure/pneumonia/sepsis. The patient is a 69-year-old female who was seen in [facility] for some increased cough and congestion and hypoxemia. The patient subsequently decompensated. The patient went on a BiPAP and at a later stage, the patient had to be intubated and placed on a mechanical ventilator. The patient is known to have CAD, coronary artery bypass, and a previous history of pacemaker insertion. For now, the patient is being treated for a pneumonia and acute hypoxic respiratory failure. The patient had essentially a left lung pneumonia and the chest x-ray was showing extensive consolidation of the left lung for which the patient underwent a bronchoscopy and the bronchioloalveolar lavage of the left lung and there is also consistent with Heidi. The patient is currently covered with accommodation IV Zosyn and IV Eraxis. Meanwhile, the patient had a negative COVID 19 testing, blood culture was negative, and the patient remains sedated on top of for which is running at 20 mcg/kg per minute. The patient is on a combination of pressors and the patient is currently on physiologic dose of vasopressin at 0.03 units per minute and the patient is also on norepinephrine 0.83 mcg/kg per minute. Cardiac rhythm is paced with occasional PVCs. The patient is on a mechanical ventilator on assist control mode at a rate of 24 with a tidal volume of 400 and FiO2 of 50% with a PEEP of 10. The blood gases from today showed a pH of 7.26 with a pCO2 of 36 and pO2 of 146. The chest x- ray is showing some limited improvement in the left lung consolidation. The patient is still febrile and the patient is running a temperature of 100.2 this morning. In terms of blood work, the white cell count is on the rise and currently is up to 25.4 and hemoglobin is at 10.1 with a platelet count of 270. The patient has a acute kidney injury. Creatinine is up to 3.8 with a BUN of 53 and a sodium level of 140. Serum bicarbonate 16. The patient did have also a shock liver yesterday and the AST was 4763 with an ALT of 1213. The echo of the heart showed mild concentric LVH with mild aortic stenosis otherwise negative. Furthermore, the patient is admitted on long-term and to coagulation with warfarin. There is regarding his underlying atrial fibrillation. INR today is at 6.4.the patient has a left IJ triple lumen catheter in place. The patient also has a right radial arterial line. Urine output has been in the order of 20 mL over the past 8 hours. 07/14/2021, seeing the patient for a follow-up. The patient remains intubated on a mechanical ventilator. On today's evaluation, the patient remains on propofol which is running at 5 mcg/kg per minute. The propofol is being gradually weaned off an underlying mental status will be evaluated. Note that the patient has shown some signs of improvement over the past 24 hours. The pressors requirements are less compared to yesterday. This morning, the norepinephrine is running at 0.12 mics of respiratory kilo Per minute and the vasopressin remains in the physiologic dose. At the same time, the patient shows improvement in the shock liver and improvement in the acute kidney injury. In terms of ventilator support, the patient remains on assist control mode of mechanical ventilation at the rate of 24 with a tidal volume of 400 and a rate of 24 with an FiO2 of 40% and a PEEP of 8. The blood gases showed a pH of 7.45 with a pCO2 of 39 and pO2 of 74. The patient is on normal saline and the bicarb infusion has been discontinued by nephrology. Normal saline is running at the rate of 75 mL an hour. The patient was admitted to 23 with hemoglobin of 9.8 and the patient has a platelet count of 207. BUN is down to 61 with a creatinine of 3.98. Urine output is improved over the past 24 hours and overall fluid balance is impossible for 2 L over the past 24 hours. Antibiotic coverage remains a combination of IV Zosyn and IV Diflucan. No new cultures are available. The cultures from the sputum and the bronchioloalveolar lavage came back positive for Heidi albicans. On a separate note, The patient was given no Coumadin and the patient's INR is down to 2.5. The chest x-ray findings are essentially unchanged and the patient continues to have CHF, pacemaker on the left, triple-lumen catheter is in a good location and there is no evidence of any pneumothorax. The patient continues to have a left lower lobe and lingular consolidation. The ultrasound of the abdomen showed hydropic gallbladder, cholelithiasis was incidentally noted. Small amount of ascites was present. Bladder was within normal limits. The 2 feeds are currently on hold as the patient was having increased residuals. 07/15/2021, patient is being seen for a follow-up. This morning, the patient is off propofol and the patient has been off propofol since 10:00 yesterday morning. She is very sluggish. They're responsive to any painful stimulation. No seizure activity. At times she blinks and at times she withdraws to deep painful stimulation. As such, a CAT scan of the brain will be needed. at the same time, the patient remains on mechanical ventilator and today the patient is an assist-control mode rate of 24, tidal volume of 400, FiO2 of 40% with a PEEP of 8. The blood gas showed a pH of 7.42 with a pCO2 of 39 and pO2 of 124. The chest x-ray from today shows a pacemaker on the left. The patient has airspace disease present bilaterally. The patient has ongoing bilateral pulmonary infiltrates, interstitial edema/pulmonary edema. The patient remains on IV fluids with normal saline at the rate of 50 mL an hour. The patient is still on vasopressin physiologic dose and the patient is also on norepinephrine at 0.04 microvascular kilogram per minute. The LFTs continued to improve as the patient had developed shock liver. Therefore she continues to be impaired with a cath in of 3.92. Overall fluid balance has been +1.2 L over the past 24 hours. The patient remains in atrial fibrillation. INR is down to 1.2. Rest of the blood work shows a sodium level of 141, BUN of 66 with a creatinine of 3.9. The white cell count is 29 with a hemoglobin of 10.4. Meanwhile, the patient remains on Diflucan and IV Zosyn per IDs recommendation. 07/16 2021, patient is being seen for a follow-up. The patient remains in the intensive care unit. The patient remains off propofol and the patient off propofol for the past 48 hours. She is grimacing only to deep painful stimulation. She is not responsive and she's not awake and she's noncommunicating at this point in time. She withdraws in her extremities for deep painful elevation. Note that the patient underwent a computed tomography scan of the brain yesterday and the patient was found to haveA right parietal area focal hemorrhagic infarct and 7 CAT scan of the brain were done, to yesterday and 1 today which showed no significant change in the size of this abnormality. Based on the radiologist's interpretation, the findings suspicious for hemorrhagic metastatic disease knowing that there was some vasogenic edema surrounding the abdomen 5 mm focus in the right parietal lobe. Neurologist on the case and the patient was orally started on IV Keppra. EEG of the brain showed diffuse slowing consistent with metabolic encephalopathy. Meanwhile, the patient is on a mechanical ventilator. This morning, the patient is an assist-control mode rate of tidal volume of 400 and a FiO2 of 40% with a PEEP of 6. The patient's pH is at 7.41 with a pCO2 of 35 and pO2 112. Chest x-ray still showing a dense infiltration of the left lower lobe. The patient's INR today is at 1.4 and the patient was given additional 5 mg of vitamin K ye day. The patient is currently off norepinephrine infusion. Hemodynamically more stable. Vasopressin will be also discontinued and the patient continues to be of normal saline at the rate of 75 mL an hour. Nevertheless, the creatinine still elevated at 4.1. Ultrasound the kidneys showed some hydronephrosis of the left kidney and for that reason urology has been involved and the patient will likely need a cystoscopy and retrograde pyelogram with possible stent insertion specially the patient's renal function continues to be quite impaired. On today's blood work, the patient's BUN is at 73 with a creatinine of 4.1, sodium level is at 141, the white cell count is at 33 with a hemoglobin of 9.7 and a platelet count of 147. Note that the patient had developed shock with multisystem organ failure including acute kidney injury and acute liver injury/shock liver. Renal function continues to be. With a creatinine of 4.1 despite ongoing improvement urine output. LFTs continued to improve. Ammonia levels are low. The patient is still receiving enteral feeding for nutritional support. The patient is tolerating a diet without any major difficulties. By the coverage, the patient remains on IV Zosyn and the patient is also on oral Diflucan Infectious diseases remains on the case. 07/18/2031, the patient is being seen for a follow-up. The patient has been still off sedation and this is going into 72 hours. She has again grimacing to deep painful sedation. On today's evaluation, she was opening his eyes spontaneously, nevertheless, the patient was not following any commands. The patient is off propofol. The patient was taken off the norepinephrine infusion and patient is also on low-dose vasopressin at 0.02 units an hour and this will be discontinued. Note that the patient's hemodynamics is improved considerably. Meanwhile, a CAT scan of the chest that was done yesterday showed worsening in the left lung consolidation. For that reason, repeat bronchoscopy and the bronchioloalveolar lavage of the left lung was done. He was some purulent material originating from the left lower lobe that was suctioned out and the lavage of the left lower lobe was done. The patient for now is on examination of antibiotics and he is receiving fluconazole and Zosyn. The patient is afebrile for now. They patient is on a mechanical ventilator on assist control mode with a rate of 24, tidal volume of 400, FiO2 of 30% with a PEEP of 6. The patient is at 7.39 with a pCO2 of 32 and pO2 of 95. The patient was a remains elevated at 33. The patient's renal function continues to be impaired with a BUN of 84 creatinine of 4.3. Note that the patient had a left ureteral stent inserted yesterday for an underlying hydronephrosis. The patient has a sodium level of 143 with a potassium level of 4.4. Overall that fluid balance has been +1.3 L over the past 24 hours. No other the patient's protest on 11 from 2 days back was quite elevated at 15.3. The patient remains on bronchodilators. The patient remains on IV Solu Medrol 60 mg every 12 hours. The findings on the case. The patient is also receiving enteral feeding for nutritional support. The liver function tests continued to improve as the patient is recovering from a shock liver. As for the CAT scan of the brain, neurologist on the case and the patient has a stable bleed in the right parietal lobe. The patient was started on Keppra as an empiric antibiotic coverage. No seizure activity has been noted. Coagulation profile is been reversed and the patient's INR is down to 1.2. 07/18/2021, patient is being seen for a follow-up. I had a lengthy discussion regarding this case with the various consultants including nephrology and also appreciated today rheumatology consultation. In summary, the patient has history of lupus and further blood work that was obtained during the current hospital stay showed that the patient had a positive KELLY, complement levels including C3 and C4 were low and the levels were 20 and 2 respectively and the patient's CHF 50 level was also low at less than 14. Rqqo-obvsni-chkqfata DNA was also positive. This explains the patient being on Plaquenil outpatient basis. There is a concern for an acute exacerbation, lupus pneumonitis/encephalitis/nephropathy. However this is not certain. Noted the patient went into septic event possibility of a pneumonia and the patient had shock and multisystem organ failure including acute kidney injury and acute sh ock liver. Nevertheless, the renal function is not completely recovered. The hepatic function is improving and the LFTs are also improving. The patient is currently off pressors. For that reason, the patient was started on Solu-Medrol and I'm going to modify the Solu-Medrol dose. Clinically, the patient remains off sedation. There was a concern for a bleed in the right parietal lobe and a repeat CAT scan was done that showed no evidence of any acute bleeding or any progression of the spots that was noted earlier and the area had seemed to be diminished in size. The patient remains on a mechanical ventilator. She is grimacing to painful stimulation. She is more active in terms of body movements on today's evaluation. She is following any commands at. She is on assist- control mode rate of 24, tidal volume of 400, FiO2 of 30% with a PEEP of 6. Chest x-ray still showing extensive consolidation of the left lung. Bronchial lavage of the left lung was done yesterday and results are still pending. The pH is at 7.44 with a pCO2 of 33 and pO2 of 114. She is receiving enteral fee ding for nutritional support with vital AF at the rate of 30 mL an hour. The patient's BUN is at 104 with a creatinine of 4.5, serum bicarb is 24 with a sodium level of 147, BUN is 104, the white cell, 26 with a hemoglobin of 8.8 and a platelet count of 112. Overall fluid balance is +968 mL over the past 24 hours. She is afebrile for now. She is off the pressors. 07/19/2021, seeing the patient for a follow-up. On today's evaluation, the patient is on no sedation. She is opening her eyes and she is following simple commands. She is profoundly weak and she is barely able to move her toes and her fingers in her upper extremities. She is blinking. She is opening her eyes. He is following simple commands. No seizure activity has been noted for now. The patient remains on a mechanical ventilator. On today's evaluation, she is an assist-control mode with a rate of 24 with a tidal volume of 400 and a PEEP of 6 with an FiO2 of 30%. The chest x-ray is still showing extensive conso lidation of the left lung. Nevertheless, the patient continues to have stable oxygenation and a blood gas today shows a pH of 7.46 with a pCO2 of 35 and a pO2 of 87. The bronchoscopy and bronchial lavage and the second occasion showed Ehidi. The patient remains on Diflucan. Meanwhile, there is concern for lupus pneumonitis and questionable encephalitis picture. The patient remains on high dose IV Solu Medrol 125 mg every 6 hours. This may have contributed to her improved mentation. Renal function continues to be impaired at stable. On today's blood work, sodium is at 147 with a potassium level of 3.8, BUN is at 120 with a creatinine of 4.3 and a serum bicarb of 21. Overall fluid balance over the past 24 hours is +2.5 L. The patient's LFTs are improving, AST 60, ALT is 319, and there is a downgoing trend on the LFTs. The white cell count of 15.7 with a hemoglobin of 8.4 and a platelet count of 108. Platelet counts are stable for now. The patient is on vital AF at the rate of 57 mL an hour which is currently at goal. Doppler of the lower extremity was done and the results were negative. The patient is on no anticoagulants for now. Also, antiphospholipid and anti-cardiolipin antibodies were sent and the results are still pending for now. Nephrology is on the case for now. Objective - Vital Signs Vital signs: Vital Signs Temp 97 F L 07/19/21 04:00 Pulse 76 07/19/21 08:03 Resp 24 07/19/21 07:00 BP 129/73 07/19/21 07:00 Pulse Ox 98 07/19/21 07:00 Intake & Output 07/18/21 07/19/21 07/19/21 18:59 06:59 18:59 Intake Total 1360 1995 110 Output Total 410 445 35 Balance 950 1550 75 Weight 83 kg Intake: IV 870 780 60 .9 kvo 120 80 10 Dextrose 5% in Water 1, 450 600 50 000 ml @ 50 mls/hr IV . Q20H [facility] Rx#:[id number] Fluconazole in NaCl,Iso- 200 Osm 200 mg In Saline 1 100ml.bag @ 100 mls/hr IVPB Q24H [facility] Rx#: [id number] levETIRAcetam IV 500 mg 100 100 In Sodium Chloride 0.9% 100 ml @ 400 mls/hr IVPB Q12HR [facility] Rx#:[id number] Intake, IV Titration 75 Amount Piperacillin-Tazobactam 3 75 .375 gm In Sodium Chloride 0.9% 100 ml @ 25 mls/hr IVPB Q8HR [facility] Rx# :[id number] Tube Feeding 340 490 50 Other 150 650 Output: Urine 410 445 35 Other: Voiding Method Indwelling Catheter Indwelling Catheter ABP, PAP, CO, CI - Last Documented Arterial Blood Pressure 96/94 - Exam Currently intubated and mechanically ventilated. Opening her eyes spontaneously, following simple commands Head exam was generally normal. There was no scleral icterus or corneal arcus. M ucous membranes were moist. HEENT examination is grossly unremarkable. Neck supple. Full range of motion. No adenopathy thyromegaly or neck vein distention. Cardiovascular examination reveals regular rhythm rate. S1-S2 normal. No S3 or S4. No discernible murmur noted. Heart sounds are very distant. Lungs reveal coarse bilateral rhonchi. No wheezes. No crackles. Abnormal lung sounds are greatler in the left chest. Abdomen soft bowel sounds are heard. No masses or tenderness. Extremities are intact. No cyanosis clubbing there is a buildup of edema in all 4 extremities Examination of the skin revealed no evidence of significant rashes, suspicious appearing nevi or other concerning lesions. Neurologic examination showing some level of alertness. The patient is opening her eyes spontaneously. Looking around. He grimaces to painful stimulation. Following simple commands. Moves all extremities upon demand although there is profound generalized weakness in all 4 extremities along with diminished reflexes. Pupils are equal and reactive to light. No facial asymmetry. Weak cough and a weak gag reflex. Plantars are downgoing. - Labs CBC & Chem 7: 07/19/21 07:27 07/19/21 07:27 Labs: Abnormal Lab Results - Last 24 Hours (Table) 07/18/21 07/18/21 07/18/21 Range/Units 08:30 09:51 09:53 WBC (3.8-10.6) k/uL RBC (3.80-5.40) m/uL Hgb (11.4-16.0) gm/dL Hct (34.0-46.0) % RDW (11.5-15.5) % Plt Count (150-450) k/uL Neutrophils # (1.3-7.7) k/uL Lymphocytes # (1.0-4.8) k/uL Sodium 147 H (137-145) mmol/L Chloride 111 H (98-107) mmol/L Carbon Dioxide (22-30) mmol/L BUN 104 H* (7-17) mg/dL Creatinine 4.57 H (0.52-1.04) mg/dL Glucose 151 H (74-99) mg/dL POC Glucose (mg/dL) (75-99) mg/dL Calcium 8.1 L (8.4-10.2) mg/dL Total Bilirubin 1.4 H (0.2-1.3) mg/dL AST 98 H (14-36) U/L ALT 451 H (4-34) U/L Total Protein 5.3 L (6.3-8.2) g/dL Albumin 2.3 L (3.5-5.0) g/dL Qvwe-7-Hlnpvzdnaivri 13.80 H (0.61-2.37) mg/L Procalcitonin 23.80 H (0.02-0.09) ng/mL 07/18/21 07/18/21 07/18/21 Range/Units 12:37 17:17 23:11 WBC (3.8-10.6) k/uL RBC (3.80-5.40) m/uL Hgb (11.4-16.0) gm/dL Hct (34.0-46.0) % RDW (11.5-15.5) % Plt Count (150-450) k/uL Neutrophils # (1.3-7.7) k/uL Lymphocytes # (1.0-4.8) k/uL Sodium (137-145) mmol/L Chloride (98-107) mmol/L Carbon Dioxide (22-30) mmol/L BUN (7-17) mg/dL Creatinine (0.52-1.04) mg/dL Glucose (74-99) mg/dL POC Glucose (mg/dL) 181 H 187 H 175 H (75-99) mg/dL Calcium (8.4-10.2) mg/dL Total Bilirubin (0.2-1.3) mg/dL AST (14-36) U/L ALT (4-34) U/L Total Protein (6.3-8.2) g/dL Albumin (3.5-5.0) g/dL Yuxz-4-Vswjwrnfzkisu (0.61-2.37) mg/L Procalcitonin (0.02-0.09) ng/mL 07/19/21 07/19/21 07/19/21 Range/Units 06:09 06:10 07:27 WBC 15.7 H (3.8-10.6) k/uL RBC 2.99 L (3.80-5.40) m/uL Hgb 8.4 L (11.4-16.0) gm/dL Hct 27.2 L (34.0-46.0) % RDW 17.0 H (11.5-15.5) % Plt Count 108 L (150-450) k/uL Neutrophils # 15.0 H (1.3-7.7) k/uL Lymphocytes # 0.3 L (1.0-4.8) k/uL Sodium (137-145) mmol/L Chloride (98-107) mmol/L Carbon Dioxide (22-30) mmol/L BUN (7-17) mg/dL Creatinine (0.52-1.04) mg/dL Glucose (74-99) mg/dL POC Glucose (mg/dL) 232 H 249 H (75-99) mg/dL Calcium (8.4-10.2) mg/dL Total Bilirubin (0.2-1.3) mg/dL AST (14-36) U/L ALT (4-34) U/L Total Protein (6.3-8.2) g/dL Albumin (3.5-5.0) g/dL Tlfz-3-Jysdnfpujfwrn (0.61-2.37) mg/L Procalcitonin (0.02-0.09) ng/mL 07/19/21 Range/Units 07:27 WBC (3.8-10.6) k/uL RBC (3.80-5.40) m/uL Hgb (11.4-16.0) gm/dL Hct (34.0-46.0) % RDW (11.5-15.5) % Plt Count (150-450) k/uL Neutrophils # (1.3-7.7) k/uL Lymphocytes # (1.0-4.8) k/uL Sodium 147 H (137-145) mmol/L Chloride 111 H (98-107) mmol/L Carbon Dioxide 21 L (22-30) mmol/L BUN 120 H* (7-17) mg/dL Creatinine 4.34 H (0.52-1.04) mg/dL Glucose 216 H (74-99) mg/dL POC Glucose (mg/dL) (75-99) mg/dL Calcium 7.7 L (8.4-10.2) mg/dL Total Bilirubin (0.2-1.3) mg/dL AST 60 H (14-36) U/L ALT 319 H (4-34) U/L Total Protein 5.4 L (6.3-8.2) g/dL Albumin 2.3 L (3.5-5.0) g/dL Kjzh-7-Tknusozzptfek (0.61-2.37) mg/L Procalcitonin (0.02-0.09) ng/mL Microbiology - Last 24 Hours (Table) 07/12/21 21:40 Blood Culture - Final Blood No Growth after 144 hours 07/17/21 10:00 Acid Fast Bacilli Smear - Final Bronchial Washings - Random Acid Fast Bacilli Culture - Preliminary 07/16/21 14:38 Blood Culture - Preliminary Blood No Growth after 48 hours 07/17/21 10:00 Gram Stain - Preliminary Bronchial Washings - Random Bronchial Washings Culture - Preliminary Heidi albicans Assessment and Plan Plan: Acute hypoxemic respiratory failure secondary to left lung pneumonia,multifocal, status post intubation and mechanical ventilation as well as bronchoscopy on 07/11/2021.the results of the bronchoscopy is indicating Heidi albicans and the patient is currently on a combination of antibiotics including IV Zosyn and Diflucan, infectious disease on the case.. Chest x-ray findings are stable and unchanged and the patient's oxidation remains stable while being on an FiO2 of 30% with a PEEP of 6. Nevertheless, the computed tomography scan of the chest that was done on 07/16/2021 showed extensive consolidation of the left lung along the left lower lobe and left upper lobe and this has gotten terribly worse. Based on that, the patient another bronchoscopy with lavage of the left lower lobe was done yesterday on 07/17/2021 and the results are negative for any bacterial growth. There is again Heidi on the patient remains on Diflucan. Other possibilities include lupus pneumonitis and the patient is currently on high-dose IV Solu-Medrol. Despite extensive consolidation of the left lung, the patient's oxidation is stable and the patient is on a 30% FiO2 with a PEEP of 6. Septic shock with multisystem organ failure, hemodynamically stable and the patient is currently off pressors History of lupus. For now, the patient has positive KELLY, positive bihy-nfnscn-zdpmueub DNA, and a complements are low. Patient was maintained on Plaquenil on outpatient basis. Consider the possibility of acute lupus flare, lupus pneumonitis/encephalitis. The patient is currently on IV Solu-Medrol high-dose 125 mg every 6 hours Altered mentation and the patient remains unresponsive and she remains off sedation. CAT scan of the brain there was repeated was noted and there is diminishment in the right parietal area of bleed. 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 The patient's coagulopathy has been reversed and the patient's INR is currently down to 1.2 and the patient was given vitamin K. Coumadin is on hold for now. EEG was noted any sores encephalopathy, likely metabolic in nature. Neurologist on the case. Please refer to the follow-up CAT scan of the brain that showed area being diminished. Acute kidney injury, secondary to above, urine output is improved compared to yesterday, the patient remains in a positive fluid balance. There is suggestion for hydronephrosis and a CAT scan of the abdomen and pelvis will be done to evaluate renal status and renal system.. The patient will be evaluated by hedy dodge and the patient had cystoscopy and retrograde pyelogram/ stenting regarding the underlying hydronephrosis. Lupus nephropathy is felt to be less likely. This is probably related to an ATN secondary to shock/hypotension. Renal function is stable on today's evaluation with a potassium level of 4.3. Nevertheless, the patient's gradually retaining more fluid and the patient is in a positive fluid balance Acute shock liver, LFTs are improving History of COPD from previous significant tobacco use. History of hypertension. History of hyperlipidemia. Status post pacemaker implantation. coronary artery disease with previous coronary artery bypass surgery Valvular heart surgery as the patient has a well-healed looks to be a mitral valve ring on the chest x-ray acute leukocytosis, stable, improved on today's evaluation Acute Coumadin toxicity, treated and recovered Thrombocytopenia, evolving, stable on today's evaluation Altered mental status, improving Plan Continue ventilator support , change PEEP down to 5 Continue IV Solu-Medrol, high-dose Awaiting anticardiolipin antibodies Doppler of the lower extremities have been negative Keep the patient off anticoagulants for now Continue Zosyn and Diflucan Patient has developed some steroid-induced hyperglycemia and the patient will be started on Levemir insulin 14 units daily along with sliding scale coverage Before meals to D5 water up to 75 mL an hour Give the patient does of Lasix 80 mg IV push 1 Monitor mental status and consider the possibility of lumbar puncture and this will discuss with neurology the CAT scan of the brain was repeated 24 hours ago and the results were noted. The area and the right parietal lobe is diminished The patient is currently off pressors Cystoscopy done with insertion of ureteral stent regarding left-sided hydronephrosis Monitor urine output Monitor electrolytes Hold Coumadin Keep the patient off sedation Continue enteral feeding for nutritional support Condition is extremely critical and will continue to follow make further recommendations based on his progress. This evaluation was on a more than 35 minutes of this is a critically care evaluation and the patient carries a very poor prognosis based on presence of septic shock with multisystem organ failure. Time with Patient: Greater than 30
--- NOTE | 2021-07-19 11:43 | P.PN ---
Subjective Patient is seen in follow-up for acute kidney injury. Creatinine is little better. Received 80 mg IV Lasix this morning per strain technician. Urine output has also improved. Off vasopressors. Intubated. On 30% FiO2. Receiving tube feeds. Also on D5W. Vital signs stable. General: Intubated. LUNGS: Breath sounds decreased. HEART: Regular rate and rhythm. ABDOMEN: Soft, no distention. EXTREMITITES: Trace edema. Objective - Vital Signs Vital signs: Vital Signs Temp 97 F L 07/19/21 04:00 Pulse 77 07/19/21 11:08 Resp 24 07/19/21 07:00 BP 129/73 07/19/21 07:00 Pulse Ox 98 07/19/21 07:00 Intake & Output 07/18/21 07/19/21 07/19/21 18:59 06:59 18:59 Intake Total 1360 1995 110 Output Total 410 445 35 Balance 950 1550 75 Weight 83 kg Intake: IV 870 780 60 .9 kvo 120 80 10 Dextrose 5% in Water 1, 450 600 50 000 ml @ 50 mls/hr IV . Q20H [facility] Rx#:[id number] Fluconazole in NaCl,Iso- 200 Osm 200 mg In Saline 1 100ml.bag @ 100 mls/hr IVPB Q24H [facility] Rx#: [id number] levETIRAcetam IV 500 mg 100 100 In Sodium Chloride 0.9% 100 ml @ 400 mls/hr IVPB Q12HR [facility] Rx#:[id number] Intake, IV Titration 75 Amount Piperacillin-Tazobactam 3 75 .375 gm In Sodium Chloride 0.9% 100 ml @ 25 mls/hr IVPB Q8HR [facility] Rx# :[id number] Tube Feeding 340 490 50 Other 150 650 Output: Urine 410 445 35 Other: Voiding Method Indwelling Catheter Indwelling Catheter ABP, PAP, CO, CI - Last Documented Arterial Blood Pressure 96/94 - Labs CBC & Chem 7: 07/19/21 07:27 07/19/21 07:27 Labs: Abnormal Lab Results - Last 24 Hours (Table) 07/18/21 07/18/21 07/18/21 Range/Units 09:51 09:53 12:37 WBC (3.8-10.6) k/uL RBC (3.80-5.40) m/uL Hgb (11.4-16.0) gm/dL Hct (34.0-46.0) % RDW (11.5-15.5) % Plt Count (150-450) k/uL Neutrophils # (1.3-7.7) k/uL Lymphocytes # (1.0-4.8) k/uL Sodium (137-145) mmol/L Chloride (98-107) mmol/L Carbon Dioxide (22-30) mmol/L BUN (7-17) mg/dL Creatinine (0.52-1.04) mg/dL Glucose (74-99) mg/dL POC Glucose (mg/dL) 181 H (75-99) mg/dL Calcium (8.4-10.2) mg/dL AST (14-36) U/L ALT (4-34) U/L Total Protein (6.3-8.2) g/dL Albumin (3.5-5.0) g/dL Ysnc-6-Bhuegbfaovdxa 13.80 H (0.61-2.37) mg/L Procalcitonin 23.80 H (0.02-0.09) ng/mL 07/18/21 07/18/21 07/19/21 Range/Units 17:17 23:11 06:09 WBC (3.8-10.6) k/uL RBC (3.80-5.40) m/uL Hgb (11.4-16.0) gm/dL Hct (34.0-46.0) % RDW (11.5-15.5) % Plt Count (150-450) k/uL Neutrophils # (1.3-7.7) k/uL Lymphocytes # (1.0-4.8) k/uL Sodium (137-145) mmol/L Chloride (98-107) mmol/L Carbon Dioxide (22-30) mmol/L BUN (7-17) mg/dL Creatinine (0.52-1.04) mg/dL Glucose (74-99) mg/dL POC Glucose (mg/dL) 187 H 175 H 232 H (75-99) mg/dL Calcium (8.4-10.2) mg/dL AST (14-36) U/L ALT (4-34) U/L Total Protein (6.3-8.2) g/dL Albumin (3.5-5.0) g/dL Huqn-5-Awtnsspxfkiar (0.61-2.37) mg/L Procalcitonin (0.02-0.09) ng/mL 07/19/21 07/19/21 07/19/21 Range/Units 06:10 07:27 07:27 WBC 15.7 H (3.8-10.6) k/uL RBC 2.99 L (3.80-5.40) m/uL Hgb 8.4 L (11.4-16.0) gm/dL Hct 27.2 L (34.0-46.0) % RDW 17.0 H (11.5-15.5) % Plt Count 108 L (150-450) k/uL Neutrophils # 15.0 H (1.3-7.7) k/uL Lymphocytes # 0.3 L (1.0-4.8) k/uL Sodium 147 H (137-145) mmol/L Chloride 111 H (98-107) mmol/L Carbon Dioxide 21 L (22-30) mmol/L BUN 120 H* (7-17) mg/dL Creatinine 4.34 H (0.52-1.04) mg/dL Glucose 216 H (74-99) mg/dL POC Glucose (mg/dL) 249 H (75-99) mg/dL Calcium 7.7 L (8.4-10.2) mg/dL AST 60 H (14-36) U/L ALT 319 H (4-34) U/L Total Protein 5.4 L (6.3-8.2) g/dL Albumin 2.3 L (3.5-5.0) g/dL Adlx-1-Dzyhcoitnzfme (0.61-2.37) mg/L Procalcitonin (0.02-0.09) ng/mL Microbiology - Last 24 Hours (Table) 07/17/21 10:00 Gram Stain - Final Bronchial Washings - Random Bronchial Washings Culture - Final Heidi albicans 07/12/21 21:40 Blood Culture - Final Blood No Growth after 144 hours 07/17/21 10:00 Acid Fast Bacilli Smear - Final Bronchial Washings - Random Acid Fast Bacilli Culture - Preliminary 07/16/21 14:38 Blood Culture - Preliminary Blood No Growth after 48 hours Assessment and Plan Plan: Assessment: 1. Acute kidney injury secondary to ATN secondary to septic shock. Creatinine was 1.78 at admission and peaked at 4.57 - 4.34 today. Urine output 50 cc per hour. Unknown baseline renal function. Noted to be KELLY positive, complements low and double-stranded DNA antibody 8. Hepatitis and ANCA negative. anti-GBM negative. No monoclonality Need to rule out GN - patient has history of lupus - on steroids which were started in the 2021. Also component of obstructive uropathy - status post left ureteral stent placement this admission. With multi-organ failure as well as thrombocytopenia, there is concern for antiphospholipid syndrome. Elevated BUN due to acute kidney injury as well as steroids. 2. Septic shock secondary to pneumonia. Status post bronchoscopy. On vasopre ssor support and antibiotics. 3. Metabolic acidosis secondary to acute kidney injury and IV fluids. On oral bicarbonate. 4. Acute hypoxic respiratory failure secondary to pneumonia. Bronchial wash ings positive for Heidi. 5. Shock liver. AST and ALT trending down. 6. Hypokalemia from diuresis. Replaced. Improved. 7. Hypomagnesemia from diuresis. Replaced. Better. 8. Left-sided hydronephrosis. Urology following. Status post left ureteral stent placement 07/16/2021. 9. Hypernatremia from lack of oral water intake. 10. History of mitral valve repair. Plan: Maintain tube feeds. D5W increased to 75 mL an hour. Patient received 80 mg IV Lasix this morning. Wean FiO2. Avoid nephrotoxins. Continue to monitor renal function and urine output. Maintain steroids. Rheumatology following. Will consider kidney biopsy once hemodynamically stable. Continue to assess daily for need for renal replacement therapy. Follow-up beta-2 microglobulin, cardiolipin antibody as well as lupus an ticoagulant. Anticoagulation currently due to concern for brain hemorrhage. PTT normal. No DVT noted on lower extremity Dopplers.
[2021-07-19 12:05] LABS: Glucose,Whole Blood 227 mg/dL (75-99)
[2021-07-19 12:05] LABS: Glucose,Whole Blood 208 mg/dL (75-99)
[2021-07-19 17:44] LABS: Glucose,Whole Blood 252 mg/dL (75-99)
[2021-07-19] MEDS: FLUCONAZOLE IN NACL,ISO-OSM 200 MG in SALINE 1 100ML.BAG IVPB SCH (18:09)
[2021-07-19] MEDS: SODIUM CHLORIDE 0.9% 1,000 ML IV SCH (18:10)
--- NOTE | 2021-07-19 18:16 | PN ---
PROGRESS NOTE This patient was started on Solu-Medrol last night for possible antiphospholipid syndrome, as the lab tests have been run for possible autoimmune disease causing some of her issues, as she has a history of lupus. She is opening her eyes and she is following some simple commands, profoundly weakened. She is able to move her toes and fingers, but she is blinking, opening her eyes. She is on a mechanical ventilator. Cardiovascular S1-S2. Lungs clear. GI soft. Hematology negative Homans. Labs were reviewed. Creatinine is a little bit better today, down to 4.44. She has beta 2 microglobulin high at 13.8, procalcitonin high at 23.8. Creatinine yesterday was 5.57, now 4.44. Sugar is in the mid 100s. White count is 15.7, hemoglobin is 8.4. ASSESSMENT: 1. Acute hypoxemic respiratory failure secondary to left lung pneumonia, multifocal. Bronchoscopy showed Heidi albicans. Two bronchoscopies. Second one was negative for bacterial growth. 2. Septic shock. 3. Multi-organ failure. 4. History lupus. 5. Positive KELLY and double-stranded DNA. She was on Plaquenil as an outpatient. She has possibility of acute lupus flare causing lupus pneumonitis encephalitis. She is on IV Solu-Medrol, high dose, 125 every 6 hours, after Dr. Zapata and I discussed it. 6. SHIFT MGR hemorrhage versus a small 5 mm lesion, unchanged. Coumadin is on hold. 7. Acute kidney injury. Urine output has improved compared to yesterday. Possibly that was a lupus flare also. 8. Status post stent placement. 9. Acute shock liver. LFTs are improving. 10.Chronic obstructive pulmonary disease. 11.Hypertension. 12.Dyslipidemia. 13.Status post pacemaker implantation. 14.Status post Coumadin of her heart surgery. 15.Thrombocytopenia. Zosyn, Diflucan. Off anticoagulants. Awaiting cardiolipin antibodies. IV Solu-Medrol. PEEP is reduced. Monitor urine output. Prognosis is guarded, but she appears to have slow improvement. Possibly a lot of this could be a lupus flare or possible antiphospholipid syndrome. Awaiting further test reports. MMODL / IJN: [id number] /
--- NOTE | 2021-07-19 21:44 | P.PN ---
Subjective Progress Note Date: 07/18/21 Principal diagnosis: Pneumonia Patient is a 71-year-old female with a past medical history significant for COPD and recent admission to [facility] for pneumonia pr esented to hospital with increasing shortness of breath and cough with a CT suspicious for left lower lobe pneumonia. The patient is status post cystoscopy and left ureteral stent placement completed on 07/16/2021 On today's evaluation that is 07/18/2021, the patient continues to be afebrile , the patient seemed administered without any pressor support the patient remains to be intubated on the vent, FiO2 is stable at 30 %, no significant purulent secretion through the ET diarrhea has been reported by nursing staff, Objective - Vital Signs Vital signs: Vital Signs Temp 97.9 F 07/18/21 12:00 Pulse 76 07/18/21 15:27 Resp 24 07/18/21 15:00 BP 123/73 07/18/21 15:00 Pulse Ox 98 07/18/21 15:00 Intake & Output 07/17/21 07/18/21 07/18/21 18:59 06:59 18:59 Intake Total 886.741 7168 960 Output Total 470 440 270 Balance 485.166 570 690 Weight 77 kg Intake: IV 935 440 590 .9 kvo 835 140 90 Dextrose 5% in Water 1, 300 000 ml @ 50 mls/hr IV . Q20H [facility] Rx#:[id number] Fluconazole in NaCl,Iso- 100 100 Osm 200 mg In Saline 1 100ml.bag @ 100 mls/hr IVPB Q24H [facility] Rx#: [id number] Piperacillin-Tazobactam 3 100 .375 gm In Sodium Chloride 0.9% 100 ml @ 25 mls/hr IVPB Q8HR [facility] Rx# :[id number] levETIRAcetam IV 500 mg 100 100 100 In Sodium Chloride 0.9% 100 ml @ 400 mls/hr IVPB Q12HR [facility] Rx#:[id number] Intake, IV Titration 0.166 Amount Sodium Chloride 0.9% 150 0.166 ml @ Titrate IV .Q24H [facility] with Vasopressin 60 unit Rx#:[id number] Tube Feeding 20 170 250 Other 400 120 Output: Urine 470 440 270 Other: Voiding Method Indwelling Catheter Indwelling Catheter Indwelling Catheter # Voids 3 ABP, PAP, CO, CI - Last Documented Arterial Blood Pressure 96/94 - Exam GENERAL DESCRIPTION: An elderly female intubated on vent RESPIRATORY SYSTEM: Unlabored breathing , decreased breath sounds at bases HEART: S1 S2 regular rate and rhythm , ABDOMEN: Soft , no tenderness EXTREMITIES: No edema feet - Labs CBC & Chem 7: 07/19/21 07:27 07/19/21 07:27 Labs: Abnormal Lab Results - Last 24 Hours (Table) 07/17/21 07/18/21 07/18/21 Range/Units 17:49 00:09 05:32 WBC (3.8-10.6) k/uL RBC (3.80-5.40) m/uL Hgb (11.4-16.0) gm/dL Hct (34.0-46.0) % MCHC (31.0-37.0) g/dL RDW (11.5-15.5) % Plt Count (150-450) k/uL Neutrophils # (1.3-7.7) k/uL Lymphocytes # (1.0-4.8) k/uL ABG pCO2 (35-45) mmHg ABG pO2 (83-108) mmHg ABG O2 Saturation (94-97) % Sodium (137-145) mmol/L Chloride (98-107) mmol/L BUN (7-17) mg/dL Creatinine (0.52-1.04) mg/dL Glucose (74-99) mg/dL POC Glucose (mg/dL) 134 H 150 H 148 H (75-99) mg/dL Calcium (8.4-10.2) mg/dL Total Bilirubin (0.2-1.3) mg/dL AST (14-36) U/L ALT (4-34) U/L Total Protein (6.3-8.2) g/dL Albumin (3.5-5.0) g/dL 07/18/21 07/18/21 07/18/21 Range/Units 06:00 08:30 12:37 WBC (3.8-10.6) k/uL RBC (3.80-5.40) m/uL Hgb (11.4-16.0) gm/dL Hct (34.0-46.0) % MCHC (31.0-37.0) g/dL RDW (11.5-15.5) % Plt Count (150-450) k/uL Neutrophils # (1.3-7.7) k/uL Lymphocytes # (1.0-4.8) k/uL ABG pCO2 33 L (35-45) mmHg ABG pO2 114 H (83-108) mmHg ABG O2 Saturation 97.8 H (94-97) % Sodium 147 H (137-145) mmol/L Chloride 111 H (98-107) mmol/L BUN 104 H* (7-17) mg/dL Creatinine 4.57 H (0.52-1.04) mg/dL Glucose 151 H (74-99) mg/dL POC Glucose (mg/dL) 181 H (75-99) mg/dL Calcium 8.1 L (8.4-10.2) mg/dL Total Bilirubin 1.4 H (0.2-1.3) mg/dL AST 98 H (14-36) U/L ALT 451 H (4-34) U/L Total Protein 5.3 L (6.3-8.2) g/dL Albumin 2.3 L (3.5-5.0) g/dL 07/18/21 Range/Units Unknown WBC 26.2 H (3.8-10.6) k/uL RBC 3.17 L (3.80-5.40) m/uL Hgb 8.8 L (11.4-16.0) gm/dL Hct 28.8 L (34.0-46.0) % MCHC 30.6 L (31.0-37.0) g/dL RDW 16.0 H (11.5-15.5) % Plt Count 112 L (150-450) k/uL Neutrophils # 24.6 H (1.3-7.7) k/uL Lymphocytes # 0.7 L (1.0-4.8) k/uL ABG pCO2 (35-45) mmHg ABG pO2 (83-108) mmHg ABG O2 Saturation (94-97) % Sodium (137-145) mmol/L Chloride (98-107) mmol/L BUN (7-17) mg/dL Creatinine (0.52-1.04) mg/dL Glucose (74-99) mg/dL POC Glucose (mg/dL) (75-99) mg/dL Calcium (8.4-10.2) mg/dL Total Bilirubin (0.2-1.3) mg/dL AST (14-36) U/L ALT (4-34) U/L Total Protein (6.3-8.2) g/dL Albumin (3.5-5.0) g/dL Microbiology - Last 24 Hours (Table) 07/17/21 10:00 Gram Stain - Preliminary Bronchial Washings - Random Bronchial Washings Culture - Preliminary Heidi albicans 07/12/21 21:40 Blood Culture - Preliminary Blood No Growth after 120 hours 07/17/21 10:00 Acid Fast Bacilli Culture - Preliminary Bronchial Washings - Random 07/17/21 10:00 Fungal Culture - Preliminary Bronchial Washings - Random 07/16/21 14:38 Blood Culture - Preliminary Blood No Growth after 24 hours Assessment and Plan (1) Pneumonia Current Visit: Yes Status: Acute Code(s): J18.9 - PNEUMONIA, UNSPECIFIED ORGANISM SNOMED Code(s): 532645119 Plan: 1patient presented to hospital with acute respiratory failure with in this patient did have hypoxemia increasing shortness of breath and cough with evidence of left lower lobe pneumonia on the CT and recently admitted and treated at [facility] having intercourse for the gram-negative pathogen. 2patient did have worsening of respiratory status requiring intubation patient is status post bronchoscopy and lavage those cultures are growing Heidi which is more likely colonizer 3patient did have worsening of the kidney function with evidence of left-sided hydronephrosis the patient is status post cystoscopy and left ureter stent placement completed 07/16/2021, 4-patient has shown some clinical improvement fever has resolved white count is trending down to continue with the Zosyn and Diflucan and monitor clinical course closely, family the bedside questions and concerns were answered Time with Patient: Less than 30
--- NOTE | 2021-07-19 21:45 | P.PN ---
Subjective Progress Note Date: 07/19/21 Principal diagnosis: Pneumonia Patient is a 71-year-old female with a past medical history significant for COPD and recent admission to [facility] for pneumonia pr esented to hospital with increasing shortness of breath and cough with a CT suspicious for left lower lobe pneumonia. The patient is status post cystoscopy and left ureteral stent placement completed on 07/16/2021 On today's evaluation that is 07/19/2021, the patient remains to be afebrile , the patient is hemodynamically stable not requiring any pressor support the patient remains to be intubated on the vent, FiO2 is stable at 30 %, no significant purulent secretion through the ET diarrhea has been reported by nursing staff, Objective - Vital Signs Vital signs: Vital Signs Temp 97 F L 07/19/21 04:00 Pulse 77 07/19/21 11:08 Resp 24 07/19/21 07:00 BP 129/73 07/19/21 07:00 Pulse Ox 98 07/19/21 07:00 Intake & Output 07/18/21 07/19/21 07/19/21 18:59 06:59 18:59 Intake Total 1360 1995 110 Output Total 410 445 35 Balance 950 1550 75 Weight 83 kg Intake: IV 870 780 60 .9 kvo 120 80 10 Dextrose 5% in Water 1, 450 600 50 000 ml @ 50 mls/hr IV . Q20H [facility] Rx#:[id number] Fluconazole in NaCl,Iso- 200 Osm 200 mg In Saline 1 100ml.bag @ 100 mls/hr IVPB Q24H [facility] Rx#: [id number] levETIRAcetam IV 500 mg 100 100 In Sodium Chloride 0.9% 100 ml @ 400 mls/hr IVPB Q12HR [facility] Rx#:[id number] Intake, IV Titration 75 Amount Piperacillin-Tazobactam 3 75 .375 gm In Sodium Chloride 0.9% 100 ml @ 25 mls/hr IVPB Q8HR [facility] Rx# :[id number] Tube Feeding 340 490 50 Other 150 650 Output: Urine 410 445 35 Other: Voiding Method Indwelling Catheter Indwelling Catheter ABP, PAP, CO, CI - Last Documented Arterial Blood Pressure 96/94 - Exam GENERAL DESCRIPTION: An elderly female intubated on vent RESPIRATORY SYSTEM: Unlabored breathing , decreased breath sounds at bases HEART: S1 S2 regular rate and rhythm , ABDOMEN: Soft , no tenderness EXTREMITIES: No edema feet - Labs CBC & Chem 7: 07/19/21 07:27 07/19/21 07:27 Labs: Abnormal Lab Results - Last 24 Hours (Table) 07/18/21 07/18/21 07/18/21 Range/Units 09:51 09:53 17:17 WBC (3.8-10.6) k/uL RBC (3.80-5.40) m/uL Hgb (11.4-16.0) gm/dL Hct (34.0-46.0) % RDW (11.5-15.5) % Plt Count (150-450) k/uL Neutrophils # (1.3-7.7) k/uL Lymphocytes # (1.0-4.8) k/uL Sodium (137-145) mmol/L Chloride (98-107) mmol/L Carbon Dioxide (22-30) mmol/L BUN (7-17) mg/dL Creatinine (0.52-1.04) mg/dL Glucose (74-99) mg/dL POC Glucose (mg/dL) 187 H (75-99) mg/dL Calcium (8.4-10.2) mg/dL AST (14-36) U/L ALT (4-34) U/L Total Protein (6.3-8.2) g/dL Albumin (3.5-5.0) g/dL Kvtl-2-Nmoshdmoscunc 13.80 H (0.61-2.37) mg/L Procalcitonin 23.80 H (0.02-0.09) ng/mL 07/18/21 07/19/21 07/19/21 Range/Units 23:11 06:09 06:10 WBC (3.8-10.6) k/uL RBC (3.80-5.40) m/uL Hgb (11.4-16.0) gm/dL Hct (34.0-46.0) % RDW (11.5-15.5) % Plt Count (150-450) k/uL Neutrophils # (1.3-7.7) k/uL Lymphocytes # (1.0-4.8) k/uL Sodium (137-145) mmol/L Chloride (98-107) mmol/L Carbon Dioxide (22-30) mmol/L BUN (7-17) mg/dL Creatinine (0.52-1.04) mg/dL Glucose (74-99) mg/dL POC Glucose (mg/dL) 175 H 232 H 249 H (75-99) mg/dL Calcium (8.4-10.2) mg/dL AST (14-36) U/L ALT (4-34) U/L Total Protein (6.3-8.2) g/dL Albumin (3.5-5.0) g/dL Ffay-5-Diudlcdorjdpv (0.61-2.37) mg/L Procalcitonin (0.02-0.09) ng/mL 07/19/21 07/19/21 07/19/21 Range/Units 07:27 07:27 11:58 WBC 15.7 H (3.8-10.6) k/uL RBC 2.99 L (3.80-5.40) m/uL Hgb 8.4 L (11.4-16.0) gm/dL Hct 27.2 L (34.0-46.0) % RDW 17.0 H (11.5-15.5) % Plt Count 108 L (150-450) k/uL Neutrophils # 15.0 H (1.3-7.7) k/uL Lymphocytes # 0.3 L (1.0-4.8) k/uL Sodium 147 H (137-145) mmol/L Chloride 111 H (98-107) mmol/L Carbon Dioxide 21 L (22-30) mmol/L BUN 120 H* (7-17) mg/dL Creatinine 4.34 H (0.52-1.04) mg/dL Glucose 216 H (74-99) mg/dL POC Glucose (mg/dL) 227 H (75-99) mg/dL Calcium 7.7 L (8.4-10.2) mg/dL AST 60 H (14-36) U/L ALT 319 H (4-34) U/L Total Protein 5.4 L (6.3-8.2) g/dL Albumin 2.3 L (3.5-5.0) g/dL Ttcs-1-Qhzsrcwlofxan (0.61-2.37) mg/L Procalcitonin (0.02-0.09) ng/mL 07/19/21 Range/Units 12:03 WBC (3.8-10.6) k/uL RBC (3.80-5.40) m/uL Hgb (11.4-16.0) gm/dL Hct (34.0-46.0) % RDW (11.5-15.5) % Plt Count (150-450) k/uL Neutrophils # (1.3-7.7) k/uL Lymphocytes # (1.0-4.8) k/uL Sodium (137-145) mmol/L Chloride (98-107) mmol/L Carbon Dioxide (22-30) mmol/L BUN (7-17) mg/dL Creatinine (0.52-1.04) mg/dL Glucose (74-99) mg/dL POC Glucose (mg/dL) 208 H (75-99) mg/dL Calcium (8.4-10.2) mg/dL AST (14-36) U/L ALT (4-34) U/L Total Protein (6.3-8.2) g/dL Albumin (3.5-5.0) g/dL Pnts-2-Dwikcswtnbdph (0.61-2.37) mg/L Procalcitonin (0.02-0.09) ng/mL Microbiology - Last 24 Hours (Table) 07/17/21 10:00 Gram Stain - Final Bronchial Washings - Random Bronchial Washings Culture - Final Heidi albicans 07/12/21 21:40 Blood Culture - Final Blood No Growth after 144 hours 07/17/21 10:00 Acid Fast Bacilli Smear - Final Bronchial Washings - Random Acid Fast Bacilli Culture - Preliminary 07/16/21 14:38 Blood Culture - Preliminary Blood No Growth after 48 hours Assessment and Plan (1) Pneumonia Current Visit: Yes Status: Acute Code(s): J18.9 - PNEUMONIA, UNSPECIFIED ORGANISM SNOMED Code(s): 147105774 Plan: 1patient presented to hospital with acute respiratory failure with in this patient did have hypoxemia increasing shortness of breath and cough with evidence of left lower lobe pneumonia on the CT and recently admitted and treated at [facility] having intercourse for the gram-negative pathogen. 2patient did have worsening of respiratory status requiring intubation patient is status post bronchoscopy and lavage those cultures are growing Heidi which is more likely colonizer 3patient did have worsening of the kidney function with evidence of left-sided hydronephrosis the patient is status post cystoscopy and left ureter stent placement completed 07/16/2021, 4-patient has shown some clinical improvement fever has resolved white count is down to 15,000, patient to continue with the Zosyn and Diflucan and continue supportive care Time with Patient: Less than 30
[2021-07-20 00:50] LABS: Glucose,Whole Blood 208 mg/dL (75-99)
[2021-07-20] MEDS: INSULIN ASPART (NovoLOG) 100 UNIT/ML VIAL SQ SCH ×4 (01:00→18:43)
[2021-07-20] MEDS: METOCLOPRAMIDE 5 MG/ML 2 ML VIAL IVP SCH ×4 (01:01→18:44)
[2021-07-20] MEDS: methylPREDNISolone SOD SUCCI 125 MG/2 ML VIAL IV SCH ×4 (01:01→18:44)
[2021-07-20] MEDS: IPRATROPIUM-ALBUTEROL 3 ML NEB INHALATION SCH ×7 (01:23→23:15)
[2021-07-20 05:00] LABS: Anisocytosis Slight; Basophils % (A) 0 %; Eosinophils # (A) 0.1 k/uL (0-0.7); Eosinophils % (A) 0 %; HCT 28.8 % (34.0-46.0); Hypochromasia Slight; Lymphocytes # (A) 0.3 k/uL (1.0-4.8); Lymphocytes % (A) 1 %; MCH 28.3 pg (25.0-35.0); MCHC 31.4 g/dL (31.0-37.0); MCV 90.1 fL (80.0-100.0); Mean Platelet Volume 11.2; Monocytes # (A) 0.4 k/uL (0-1.0); Monocytes % (A) 2 %; Neutrophils % (A) 96 %; Platelet Count 115 k/uL (150-450); RBC 3.19 m/uL (3.80-5.40); WBC 20.7 k/uL (3.8-10.6)
[2021-07-20 05:14] LABS: Albumin 2.4 g/dL (3.5-5.0); Calcium 7.5 mg/dL (8.4-10.2); Magnesium 1.9 mg/dL (1.6-2.3); Phosphorus 5.5 mg/dL (2.5-4.5); Potassium 3.5 mmol/L (3.5-5.1); Total Bilirubin 1.1 mg/dL (0.2-1.3); Total Protein 5.5 g/dL (6.3-8.2)
[2021-07-20 05:55] LABS: ABG Base Excess -1.7 mmol/L; ABG HCO3 23 mmol/L (21-25); ABG Oxygen Saturation 95.1 % (94-97); ABG PCO2 34 mmHg (35-45); ABG PH 7.43 (7.35-7.45); ABG PO2 76 mmHg (83-108); ABG TCO2 24 mmol/L (19-24); Allen Test Performed? Yes
[2021-07-20 06:48] LABS: Glucose,Whole Blood 151 mg/dL (75-99)
--- NOTE | 2021-07-20 07:39 | XR ---
EXAMINATION TYPE: XR chest 1V portable DATE OF EXAM: 07/20/2021 COMPARISON: 07/19/2021 HISTORY: Shortness of breath TECHNIQUE: Single frontal view of the chest is obtained. FINDINGS: Cardiac device, ET tube, NG tube, and postsurgical changes are stable. Chronic rib cage de formities noted and there is a diffuse interstitial pattern with bilateral infiltrate and pleural eff usion. Underlying COPD suspected. IMPRESSION: Diffuse pleural-parenchymal changes are stable correlate for CHF versus diffuse pneumoni a.
[2021-07-20] MEDS: levETIRAcetam IV 500 MG in SODIUM CHLORIDE 0.9% 100 ML IVPB SCH ×2 (07:59→21:05)
[2021-07-20] MEDS: CHLORHEXIDINE GLUCONATE 15 ML CUP MUCOUS MEM SCH ×2 (08:01→21:05)
[2021-07-20] MEDS: SODIUM BICARBONATE TAB 650 MG TAB PO SCH ×2 (08:01→21:05)
[2021-07-20] MEDS: DEXTROSE 5% IN WATER 1,000 ML IV SCH (08:03)
[2021-07-20] MEDS: PIPERACILLIN-TAZOBACTAM 3.375 GM in SODIUM CHLORIDE 0.9% 100 ML IVPB SCH ×2 (08:20→21:05)
[2021-07-20] MEDS: INSULIN DETEMIR (LEVEMIR) 100 UNIT/ML SYR SQ SCH (08:43)
--- NOTE | 2021-07-20 09:51 | P.PN ---
Subjective Patient is seen in follow-up for acute kidney injury. Creatinine trending down. Received IV Lasix july. Nonoliguric. Off vasopressors. Intubated. On 30% FiO2. Receiving tube feeds. Also on D5W. Sodium level 140 today. Vital signs stable. General: Intubated. LUNGS: Breath sounds decreased. HEART: Regular rate and rhythm. ABDOMEN: Soft, no distention. EXTREMITITES: Trace edema. Objective - Vital Signs Vital signs: Vital Signs Temp 98.1 F 07/20/21 04:00 Pulse 80 07/20/21 08:05 Resp 26 H 07/20/21 07:00 BP 116/62 07/20/21 07:00 Pulse Ox 97 07/20/21 07:00 Intake & Output 07/19/21 07/20/21 07/20/21 18:59 06:59 18:59 Intake Total 2042 1877 142 Output Total 1935 1450 100 Balance 108 427 42 Intake: IV 1260 1160 85 .9 kvo 110 60 10 Dextrose 5% in Water 1, 850 900 75 000 ml @ 75 mls/hr IV . [id number] [facility] Rx#:[id number] Fluconazole in NaCl,Iso- 100 Osm 200 mg In Saline 1 100ml.bag @ 100 mls/hr IVPB Q24H [facility] Rx#: [id number] Piperacillin-Tazobactam 3 100 100 .375 gm In Sodium Chloride 0.9% 100 ml @ 25 mls/hr IVPB Q12HR [facility] Rx #:[id number] levETIRAcetam IV 500 mg 100 100 In Sodium Chloride 0.9% 100 ml @ 400 mls/hr IVPB Q12HR [facility] Rx#:[id number] Tube Feeding 663 627 57 Other 120 90 Output: Urine 1935 1450 100 Other: Voiding Method Indwelling Catheter Indwelling Catheter Indwelling Catheter ABP, PAP, CO, CI - Last Documented Arterial Blood Pressure 96/94 - Labs CBC & Chem 7: 07/20/21 04:41 07/20/21 04:41 Labs: Abnormal Lab Results - Last 24 Hours (Table) 07/19/21 07/19/21 07/19/21 Range/Units 11:58 12:03 17:42 WBC (3.8-10.6) k/uL RBC (3.80-5.40) m/uL Hgb (11.4-16.0) gm/dL Hct (34.0-46.0) % RDW (11.5-15.5) % Plt Count (150-450) k/uL Neutrophils # (1.3-7.7) k/uL Lymphocytes # (1.0-4.8) k/uL ABG pCO2 (35-45) mmHg ABG pO2 (83-108) mmHg Chloride (98-107) mmol/L Carbon Dioxide (22-30) mmol/L BUN (7-17) mg/dL Creatinine (0.52-1.04) mg/dL Glucose (74-99) mg/dL POC Glucose (mg/dL) 227 H 208 H 252 H (75-99) mg/dL Calcium (8.4-10.2) mg/dL Phosphorus (2.5-4.5) mg/dL AST (14-36) U/L ALT (4-34) U/L Total Protein (6.3-8.2) g/dL Albumin (3.5-5.0) g/dL 07/20/21 07/20/21 07/20/21 Range/Units 00:47 04:41 04:41 WBC 20.7 H (3.8-10.6) k/uL RBC 3.19 L (3.80-5.40) m/uL Hgb 9.0 L (11.4-16.0) gm/dL Hct 28.8 L (34.0-46.0) % RDW 17.0 H (11.5-15.5) % Plt Count 115 L (150-450) k/uL Neutrophils # 20.0 H (1.3-7.7) k/uL Lymphocytes # 0.3 L (1.0-4.8) k/uL ABG pCO2 (35-45) mmHg ABG pO2 (83-108) mmHg Chloride 108 H (98-107) mmol/L Carbon Dioxide 21 L (22-30) mmol/L BUN 129 H* (7-17) mg/dL Creatinine 3.93 H (0.52-1.04) mg/dL Glucose 159 H (74-99) mg/dL POC Glucose (mg/dL) 208 H (75-99) mg/dL Calcium 7.5 L (8.4-10.2) mg/dL Phosphorus 5.5 H (2.5-4.5) mg/dL AST 69 H (14-36) U/L ALT 281 H (4-34) U/L Total Protein 5.5 L (6.3-8.2) g/dL Albumin 2.4 L (3.5-5.0) g/dL 07/20/21 07/20/21 Range/Units 05:45 06:47 WBC (3.8-10.6) k/uL RBC (3.80-5.40) m/uL Hgb (11.4-16.0) gm/dL Hct (34.0-46.0) % RDW (11.5-15.5) % Plt Count (150-450) k/uL Neutrophils # (1.3-7.7) k/uL Lymphocytes # (1.0-4.8) k/uL ABG pCO2 34 L (35-45) mmHg ABG pO2 76 L (83-108) mmHg Chloride (98-107) mmol/L Carbon Dioxide (22-30) mmol/L BUN (7-17) mg/dL Creatinine (0.52-1.04) mg/dL Glucose (74-99) mg/dL POC Glucose (mg/dL) 151 H (75-99) mg/dL Calcium (8.4-10.2) mg/dL Phosphorus (2.5-4.5) mg/dL AST (14-36) U/L ALT (4-34) U/L Total Protein (6.3-8.2) g/dL Albumin (3.5-5.0) g/dL Microbiology - Last 24 Hours (Table) 07/17/21 10:00 Fungal Culture - Preliminary Bronchial Washings - Random Yeast species 07/16/21 14:38 Blood Culture - Preliminary Blood No Growth after 72 hours 07/17/21 10:00 Gram Stain - Final Bronchial Washings - Random Bronchial Washings Culture - Final Heidi albicans Assessment and Plan Plan: Assessment: 1. Acute kidney injury secondary to ATN secondary to septic shock. Creatinine was 1.78 at admission and peaked at 4.57 - 3.93 today. Urine output 100 cc per hour. Unknown baseline renal function. Noted to be KELLY positive, complements low and double-stranded DNA antibody 8. Hepatitis and ANCA negative. anti-GBM negative. No monoclonality Need to rule out GN - patient has history of lupus - on steroids which were started in the 2021. Also component of obstructive uropathy - status post left ureteral stent placement this admission. With multi-organ failure as well as thrombocytopenia, there is concern for antiphospholipid syndrome. Elevated BUN due to acute kidney injury as well as steroids. 2. Septic shock secondary to pneumonia. Status post bronchoscopy. On vasopressor support and antibiotics. 3. Metabolic acidosis secondary to acute kidney injury and IV fluids. On oral bicarbonate. 4. Acute hypoxic respiratory failure secondary to pneumonia. Bronchial washings positive for Heidi. 5. Shock liver. AST and ALT trending down. 6. Hypokalemia from diuresis. Replaced. Improved. 7. Hypomagnesemia from diuresis. Replaced. Better. 8. Left-sided hydronephrosis. Urology following. Status post left ureteral stent placement 07/16/2021. 9. Hypernatremia from lack of oral water intake. 10. History of mitral valve repair. Plan: Maintain tube feeds. Add water flushes 200 mL every 6 hours. Stop D5W. Status post IV Lasix given 07/19/2021. Wean FiO2. Avoid nephrotoxins. Continue to monitor renal function and urine output. Maintain steroids. Rheumatology following. Will consider kidney biopsy once hemodynamically stable. Continue to assess daily for need for renal replacement therapy. Follow-up cardiolipin antibody and lupus anticoagulant; beta-2 microglobulin elevated. Rheumatology will be notified. Anticoagulation currently held due to concern for brain hemorrhage. PTT normal. No DVT noted on lower extremity Dopplers.
--- NOTE | 2021-07-20 12:31 | P.PN ---
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 On today's evaluation, the patient is on no sedation. She is opening her eyes and she is following simple commands. She is profoundly weak and she is barely able to move her toes and her fingers in her upper extremities. She is blinking. She is opening her eyes. He is following simple commands. No seizure activity has been noted for now. The patient remains on a mechanical ventilator. On today's evaluation, she is an assist-control mode with a rate of 24 with a tidal volume of 400 and a PEEP of 6 with an FiO2 of 30%. The chest x-ray is still showing extensive consolidation of the left lung. Nevertheless, the patient continues to have stable oxygenation and a blood gas today shows a pH of 7.46 with a pCO2 of 35 and a pO2 of 87. The bronchoscopy and bronchial lavage and the second occasion showed Heidi. The patient remains on Diflucan. Meanwhile, there is concern for lupus pneumonitis and questionable encephalitis picture. The patient remains on high dose IV Solu Medrol 125 mg every 6 hours. This may have contributed to her improved mentation. Renal function continues to be impaired at stable. On today's blood work, sodium is at 147 with a potassium level of 3.8, BUN is at 120 with a creatinine of 4.3 and a serum bicarb of 21. Overall fluid balance over the past 24 hours is +2.5 L. The patient's LFTs are improving, AST 60, ALT is 319, and there is a downgoing trend on the LFTs. The white cell count of 15.7 with a hemoglobin of 8.4 and a platelet count of 108. Platelet counts are stable for now. The patient is on vital AF at the rate of 57 mL an hour which is currently at goal. Doppler of the lower extremity was done and the results were negative. The patient is on no anticoagulants for now. Also, antiphospholipid and anti-cardiolipin antibodies were sent and the results are still pending for now. Nephrology is on the case for now. Patient was reevaluated today on 07/20/21, remains in the ICU, intubated and mechanically ventilated. She is presently on assist control rate of 24, volume 400 FiO2 30% PEEP 5 ABG showed a pO2 of 76 pCO2 34 pH of 7.43. Hence no changes were made in her present ventilator settings. Patient is on IV fluid she was on D5W at 75 mL/h, now she is on 0.9 normal saline at 20 mL per hour. She is receiving enteral tube feeding, remains on relatively high-dose of steroids/Solu-Medrol for presumptive lupus encephalitis and lupus pneumonitis. Patient is not requiring any sedation, her chest x-ray continues to show multifocal pneumonia bilaterally left more so than right, patient is opening eyes, following very simple instructions, and this is a new finding implying improved mental status. However the patient is generally weak, and I don't believe she is ready for any weaning trials at this point. But we'll continue the same ventilatory support, we'll continue nutritional support, continue steroids and antibiotics empirically, although I am mostly suspecting lupus pneumonitis rather than bacterial pneumonia. WBC count today is 20.7 hemoglobin is 9 ABG as noted earlier. Renal functioning is poor with a BUN of 129 creatinine 3.93. Improving compared to the last few days. Patient remains on Zosyn, and she also remains on methylprednisolone 125 mg IV push every 6 hours. She is on insulin she is also on Diflucan. Objective - Vital Signs Vital signs: Vital Signs Temp 98.3 F 07/20/21 08:00 Pulse 82 07/20/21 11:28 Resp 27 H 07/20/21 11:00 BP 132/68 07/20/21 11:00 Pulse Ox 94 L 07/20/21 11:00 Intake & Output 07/19/21 07/20/21 07/20/21 18:59 06:59 18:59 Intake Total 2043 1877 1070 Output Total 1935 1450 450 Balance 108 427 620 Intake: IV 1260 1160 525 .9 kvo 110 60 50 Dextrose 5% in Water 1, 850 900 300 000 ml @ 75 mls/hr IV . [id number] [facility] Rx#:[id number] Fluconazole in NaCl,Iso- 100 Osm 200 mg In Saline 1 100ml.bag @ 100 mls/hr IVPB Q24H [facility] Rx#: [id number] Piperacillin-Tazobactam 3 100 100 75 .375 gm In Sodium Chloride 0.9% 100 ml @ 25 mls/hr IVPB Q12HR [facility] Rx #:[id number] levETIRAcetam IV 500 mg 100 100 100 In Sodium Chloride 0.9% 100 ml @ 400 mls/hr IVPB Q12HR [facility] Rx#:[id number] Tube Feeding 663 627 285 Other 120 90 260 Output: Urine 1935 1450 450 Other: Voiding Method Indwelling Catheter Indwelling Catheter Indwelling Catheter ABP, PAP, CO, CI - Last Documented Arterial Blood Pressure 96/94 - Exam Physical Exam: Revealed a 71-year-old female in no distress, intubated and mechanically ventilated. Opens eyes, follows simple instructions like wiggling toes and squeezing hands closing eyes. Head: Atraumatic, normocephalic. HEENT:[Neck is supple.] [No neck masses.] [No thyromegaly.] [No JVD.], EOMI, no nicteric., EOMI, nonicteric. Chest: [Symmetrical chest expansion, crackles at the bases especially at the left side..] Cardiac Exam: [Normal S1 and S2, no S3 gallop, no murmur.] Patient has a paced rhythm. Abdomen: [Soft, nontender, no megaly, no rebound, no guarding, normal bowel sounds.] Extremities: [No clubbing, no edema, no cyanosis.] Neurological Exam: Opens eyes, follows simple instructions, seems to be generally weak. Psychiatric: Could not fully assess, but the patient seems to comprehend the questions. And follows simple instructions Skin: No rashes. - Labs CBC & Chem 7: 07/20/21 04:41 07/20/21 04:41 Labs: Abnormal Lab Results - Last 24 Hours (Table) 07/19/21 07/20/21 07/20/21 Range/Units 17:42 00:47 04:41 WBC 20.7 H (3.8-10.6) k/uL RBC 3.19 L (3.80-5.40) m/uL Hgb 9.0 L (11.4-16.0) gm/dL Hct 28.8 L (34.0-46.0) % RDW 17.0 H (11.5-15.5) % Plt Count 115 L (150-450) k/uL Neutrophils # 20.0 H (1.3-7.7) k/uL Lymphocytes # 0.3 L (1.0-4.8) k/uL ABG pCO2 (35-45) mmHg ABG pO2 (83-108) mmHg Chloride (98-107) mmol/L Carbon Dioxide (22-30) mmol/L BUN (7-17) mg/dL Creatinine (0.52-1.04) mg/dL Glucose (74-99) mg/dL POC Glucose (mg/dL) 252 H 208 H (75-99) mg/dL Calcium (8.4-10.2) mg/dL Phosphorus (2.5-4.5) mg/dL AST (14-36) U/L ALT (4-34) U/L Total Protein (6.3-8.2) g/dL Albumin (3.5-5.0) g/dL 07/20/21 07/20/21 07/20/21 Range/Units 04:41 05:45 06:47 WBC (3.8-10.6) k/uL RBC (3.80-5.40) m/uL Hgb (11.4-16.0) gm/dL Hct (34.0-46.0) % RDW (11.5-15.5) % Plt Count (150-450) k/uL Neutrophils # (1.3-7.7) k/uL Lymphocytes # (1.0-4.8) k/uL ABG pCO2 34 L (35-45) mmHg ABG pO2 76 L (83-108) mmHg Chloride 108 H (98-107) mmol/L Carbon Dioxide 21 L (22-30) mmol/L BUN 129 H* (7-17) mg/dL Creatinine 3.93 H (0.52-1.04) mg/dL Glucose 159 H (74-99) mg/dL POC Glucose (mg/dL) 151 H (75-99) mg/dL Calcium 7.5 L (8.4-10.2) mg/dL Phosphorus 5.5 H (2.5-4.5) mg/dL AST 69 H (14-36) U/L ALT 281 H (4-34) U/L Total Protein 5.5 L (6.3-8.2) g/dL Albumin 2.4 L (3.5-5.0) g/dL Microbiology - Last 24 Hours (Table) 07/17/21 10:00 Fungal Culture - Preliminary Bronchial Washings - Random Heidi albicans 07/11/21 12:45 Acid Fast Bacilli Smear - Final Bronchial Washings - Left Acid Fast Bacilli Culture - Preliminary 07/16/21 14:38 Blood Culture - Preliminary Blood No Growth after 72 hours 07/17/21 10:00 Gram Stain - Final Bronchial Washings - Random Bronchial Washings Culture - Final Heidi albicans Assessment and Plan Assessment: Impression: 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 Possible community-acquired pneumonia. Septic shock with multisystem organ failure Acute lupus encephalitis. Acute metabolic encephalopathy. 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 Acute kidney injury, suspect acute tubular necrosis. Acute shock liver Underlying COPD, presently inactive Benign essential hypertension. History of pacemaker implantation. Coronary arteriosclerosis and previous CABG Valvular heart disease and mitral valve replacement acute Coumadin toxicity, treated and recovered Thrombocytopenia secondary to sepsis Recommendation: Continue present supportive care measures Continue ventilatory support. Continue nutritional support. Continue high-dose Solu-Medrol. Continue antibiotics/Zosyn. Continue GI and DVT prophylaxis. Continue bronchodilators. Continue sodium bicarb and close monitoring of the renal profile as done by nephrology. Continue insulin especially with the patient on high dose of steroids. Continue fluconazole. Continue Keppra. Continue enteral feeding. Not quite ready for weaning, plan to continue to monitor in the ICU and follow with the rest of the other consultants including nephrology and neurology on the case. Patient is critically ill. Critical care time is over 30 minutes Time with Patient: Greater than 30 ([id number])
[2021-07-20 12:38] LABS: Glucose,Whole Blood 189 mg/dL (75-99)
[2021-07-20 13:51] LABS: APTT 43 Sec(s) (<43); DRVVT 1:1 Mix 45 Sec(s) (<44); DRVVT Confirmation Negative (Negative); Dilute Russell Viper Venom 53 Sec(s) (<44)
[2021-07-20 14:02] LABS: Cardiolipin Ab IgG Interp NEGATIVE (NEGATIVE); Cardiolipin Ab IgM Interp NEGATIVE (NEGATIVE); Cardiolipin IgA Antibody 8.9 U/mL; Cardiolipin IgM Antibody <1.5 U/mL
[2021-07-20 14:20] LABS: Free Kappa Lt Chain Qnt, Serum 12.13 mg/dL (0.33-1.94); Free Lambda Lt Chain Qnt, Seru 11.98 mg/dL (0.57-2.63)
[2021-07-20 17:43] LABS: Glucose,Whole Blood 142 mg/dL (75-99)
[2021-07-20] MEDS: FLUCONAZOLE IN NACL,ISO-OSM 200 MG in SALINE 1 100ML.BAG IVPB SCH (18:47)
[2021-07-20] MEDS: SODIUM CHLORIDE 0.9% 1,000 ML IV SCH (20:59)
[2021-07-20 23:48] LABS: Glucose,Whole Blood 175 mg/dL (75-99)
[2021-07-21] MEDS: INSULIN ASPART (NovoLOG) 100 UNIT/ML VIAL SQ SCH ×4 (00:33→17:31)
[2021-07-21] MEDS: METOCLOPRAMIDE 5 MG/ML 2 ML VIAL IVP SCH ×4 (00:33→17:35)
[2021-07-21] MEDS: methylPREDNISolone SOD SUCCI 125 MG/2 ML VIAL IV SCH ×4 (00:33→17:31)
[2021-07-21] MEDS: IPRATROPIUM-ALBUTEROL 3 ML NEB INHALATION SCH ×6 (03:17→23:54)
[2021-07-21 05:39] LABS: ABG Base Excess -1.1 mmol/L; ABG HCO3 23 mmol/L (21-25); ABG Oxygen Saturation 95.3 % (94-97); ABG PCO2 33 mmHg (35-45); ABG PH 7.45 (7.35-7.45); ABG PO2 75 mmHg (83-108); ABG TCO2 24 mmol/L (19-24); Allen Test Performed? Yes
[2021-07-21 05:45] LABS: Glucose,Whole Blood 161 mg/dL (75-99)
[2021-07-21 06:06] LABS: Ionized Calcium 4.6 mg/dL (4.5-5.3)
[2021-07-21 06:12] LABS: Anisocytosis Slight; HCT 27.5 % (34.0-46.0); HGB 8.7 gm/dL (11.4-16.0); Hypochromasia Slight; MCH 28.4 pg (25.0-35.0); MCHC 31.8 g/dL (31.0-37.0); MCV 89.5 fL (80.0-100.0); Mean Platelet Volume 10.8; Platelet Count 109 k/uL (150-450); RBC 3.07 m/uL (3.80-5.40); RDW 17.2 % (11.5-15.5); WBC 19.9 k/uL (3.8-10.6)
[2021-07-21 06:14] LABS: Calcium 7.5 mg/dL (8.4-10.2); Potassium 3.4 mmol/L (3.5-5.1)
[2021-07-21] MEDS: INSULIN DETEMIR (LEVEMIR) 100 UNIT/ML SYR SQ SCH (06:16)
--- NOTE | 2021-07-21 08:12 | XR ---
EXAMINATION TYPE: XR chest 1V portable DATE OF EXAM: 07/21/2021 COMPARISON: Chest x-ray 07/20/2021 HISTORY: Intubated, respiratory failure TECHNIQUE: Single frontal view of the chest is obtained. FINDINGS: Endotracheal tube and NG tube, left jugular central venous catheter, pacemaker, post media n sternotomy change and cardiac valve replacement are all again noted. No evident pneumothorax. Bilat eral airspace disease is present, there may be associated effusions. Patient is rotated, cardiac medi astinal silhouette thought to be stable accounting for differences in technique. IMPRESSION: Correlate for pneumonia, congestive heart failure with possible associated effusions
[2021-07-21] MEDS: SODIUM BICARBONATE TAB 650 MG TAB PO SCH ×2 (08:17→21:19)
[2021-07-21] MEDS: levETIRAcetam IV 500 MG in SODIUM CHLORIDE 0.9% 100 ML IVPB SCH ×2 (08:17→21:19)
[2021-07-21] MEDS: CHLORHEXIDINE GLUCONATE 15 ML CUP MUCOUS MEM SCH ×2 (08:17→21:19)
[2021-07-21] MEDS: POTASSIUM BICARBONATE/CIT AC 20 MEQ TABLET.EFF PO SCH ×2 (09:56→11:45)
--- NOTE | 2021-07-21 10:20 | P.PN ---
Subjective Patient is seen in follow-up for acute kidney injury. Creatinine trending down. Nonoliguric. Off vasopressors. Intubated. On 30% FiO2. Receiving tube feeds. Mentation slowly improving. Vital signs stable. General: Intubated. LUNGS: Breath sounds decreased. HEART: Regular rate and rhythm. ABDOMEN: Soft, no distention. EXTREMITITES: Trace edema. Objective - Vital Signs Vital signs: Vital Signs Temp 98.3 F 07/21/21 08:00 Pulse 76 07/21/21 09:00 Resp 27 H 07/21/21 09:00 BP 127/57 07/21/21 09:00 Pulse Ox 98 07/21/21 09:00 Intake & Output 07/20/21 07/21/21 07/21/21 18:59 06:59 18:59 Intake Total 1964 1584 331 Output Total 990 900 275 Balance 974 684 56 Weight 83 kg 84 kg Intake: IV 620 300 130 .9 kvo 120 100 30 Dextrose 5% in Water 1, 300 000 ml @ 75 mls/hr IV . [id number] [facility] Rx#:[id number] Fluconazole in NaCl,Iso- 100 Osm 200 mg In Saline 1 100ml.bag @ 100 mls/hr IVPB Q24H [facility] Rx#: [id number] Piperacillin-Tazobactam 3 100 .375 gm In Sodium Chloride 0.9% 100 ml @ 25 mls/hr IVPB Q12HR [facility] Rx #:[id number] levETIRAcetam IV 500 mg 100 100 100 In Sodium Chloride 0.9% 100 ml @ 400 mls/hr IVPB Q12HR [facility] Rx#:[id number] Tube Feeding 684 684 171 Other 660 600 30 Output: Urine 990 900 275 Other: Voiding Method Indwelling Catheter Indwelling Catheter Indwelling Catheter ABP, PAP, CO, CI - Last Documented Arterial Blood Pressure 96/94 - Labs CBC & Chem 7: 07/21/21 05:45 07/21/21 05:45 Labs: Abnormal Lab Results - Last 24 Hours (Table) 07/16/21 07/18/21 07/20/21 Range/Units 14:38 09:53 12:26 WBC (3.8-10.6) k/uL RBC (3.80-5.40) m/uL Hgb (11.4-16.0) gm/dL Hct (34.0-46.0) % RDW (11.5-15.5) % Plt Count (150-450) k/uL Dil [place] 53 H (<44) Sec(s) dRVVT 50:50 45 H (<44) Sec(s) ABG pCO2 (35-45) mmHg ABG pO2 (83-108) mmHg Potassium (3.5-5.1) mmol/L Carbon Dioxide (22-30) mmol/L BUN (7-17) mg/dL Creatinine (0.52-1.04) mg/dL Glucose (74-99) mg/dL POC Glucose (mg/dL) 189 H (75-99) mg/dL Calcium (8.4-10.2) mg/dL Free [place] LC, Quant 12.13 H (0.33-1.94) mg/dL Free [place] LC, Quant 11.98 H (0.57-2.63) mg/dL 07/20/21 07/20/21 07/21/21 Range/Units 17:41 23:46 05:35 WBC (3.8-10.6) k/uL RBC (3.80-5.40) m/uL Hgb (11.4-16.0) gm/dL Hct (34.0-46.0) % RDW (11.5-15.5) % Plt Count (150-450) k/uL Dil [place] (<44) Sec(s) dRVVT 50:50 (<44) Sec(s) ABG pCO2 33 L (35-45) mmHg ABG pO2 75 L (83-108) mmHg Potassium (3.5-5.1) mmol/L Carbon Dioxide (22-30) mmol/L BUN (7-17) mg/dL Creatinine (0.52-1.04) mg/dL Glucose (74-99) mg/dL POC Glucose (mg/dL) 142 H 175 H (75-99) mg/dL Calcium (8.4-10.2) mg/dL Free [place] LC, Quant (0.33-1.94) mg/dL Free [place]ambda LC, Quant (0.57-2.63) mg/dL 05/03/22 05/03/22 05/03/22 Range/Units 05:43 05:45 05:45 WBC 19.9 H (3.8-10.6) k/uL RBC 3.07 L (3.80-5.40) m/uL Hgb 8.7 L (11.4-16.0) gm/dL Hct 27.5 L (34.0-46.0) % RDW 17.2 H (11.5-15.5) % Plt Count 109 L (150-450) k/uL Dil [place] (<44) Sec(s) dRVVT 50:50 (<44) Sec(s) ABG pCO2 (35-45) mmHg ABG pO2 (83-108) mmHg Potassium 3.4 L (3.5-5.1) mmol/L Carbon Dioxide 21 L (22-30) mmol/L BUN 131 H* (7-17) mg/dL Creatinine 3.48 H (0.52-1.04) mg/dL Glucose 149 H (74-99) mg/dL POC Glucose (mg/dL) 161 H (75-99) mg/dL Calcium 7.5 L (8.4-10.2) mg/dL Free [place] LC, Quant (0.33-1.94) mg/dL Free [place] LC, Quant (0.57-2.63) mg/dL Microbiology - Last 24 Hours (Table) 07/16/21 14:38 Blood Culture - Preliminary Blood No Growth after 96 hours 07/17/21 10:00 Fungal Culture - Preliminary Bronchial Washings - Random Heidi albicans 07/11/21 12:45 Acid Fast Bacilli Smear - Final Bronchial Washings - Left Acid Fast Bacilli Culture - Preliminary Assessment and Plan Plan: Assessment: 1. Acute kidney injury secondary to ATN secondary to septic shock. Creatinine was 1.78 at admission and peaked at 4.57 - 3.93 today. Urine output 100 cc per hour. Unknown baseline renal function. Noted to be KELLY positive, complements low and double-stranded DNA antibody 8. Hepatitis and ANCA negative. anti-GBM negative. No monoclonality Need to rule out GN - patient has history of lupus - on steroids.Also component of obstructive uropathy - status post left ureteral stent placement this admission. With multi-organ failure as well as thrombocytopenia, there is concern for antiphospholipid syndrome. Elevated BUN due to acute kidney injury as well as steroids. 2. Septic shock secondary to pneumonia. Status post bronchoscopy. Off vasopressor support; on antibiotics. 3. Metabolic acidosis secondary to acute kidney injury and IV fluids. On oral bicarbonate. 4. Acute hypoxic respiratory failure secondary to pneumonia. Bronchial washings positive for Heidi. 5. Shock liver. AST and ALT trending down. 6. Hypokalemia from diuresis. 7. Hypomagnesemia from diuresis. Replaced. Better. 8. Left-sided hydronephrosis. Urology following. Status post left ureteral stent placement 07/16/2021. 9. Hypernatremia from lack of oral water intake. Improved. 10. History of mitral valve repair. Plan: Maintain tube feeds and water flushes at 200 mL every 6 hours. Status post IV Lasix given 07/19/2021. Wean FiO2. Avoid nephrotoxins. Replace potassium. Continue to monitor renal function and urine output. Maintain steroids. Rheumatology following. Will need kidney biopsy once hemodynamically stable for definitive diagnosis/classification of lupus nephritis. Continue to assess daily for need for renal replacement therapy. Anti-cardiolipin antibody negative. Anticoagulation currently held due to concern for brain hemorrhage. PTT normal. No DVT noted on lower extremity Dopplers.
--- NOTE | 2021-07-21 11:34 | P.PN ---
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 On today's evaluation, the patient is on no sedation. She is opening her eyes and she is following simple commands. She is profoundly weak and she is barely able to move her toes and her fingers in her upper extremities. She is blinking. She is opening her eyes. He is following simple commands. No seizure activity has been noted for now. The patient remains on a mechanical ventilator. On today's evaluation, she is an assist-control mode with a rate of 24 with a tidal volume of 400 and a PEEP of 6 with an FiO2 of 30%. The chest x-ray is still showing extensive consolidation of the left lung. Nevertheless, the patient continues to have stable oxygenation and a blood gas today shows a pH of 7.46 with a pCO2 of 35 and a pO2 of 87. The bronchoscopy and bronchial lavage and the second occasion showed Heidi. The patient remains on Diflucan. Meanwhile, there is concern for lupus pneumonitis and questionable encephalitis picture. The patient remains on high dose IV Solu Medrol 125 mg every 6 hours. This may have contributed to her improved mentation. Renal function continues to be impaired at stable. On today's blood work, sodium is at 147 with a potassium level of 3.8, BUN is at 120 with a creatinine of 4.3 and a serum bicarb of 21. Overall fluid balance over the past 24 hours is +2.5 L. The patient's LFTs are improving, AST 60, ALT is 319, and there is a downgoing trend on the LFTs. The white cell count of 15.7 with a hemoglobin of 8.4 and a platelet count of 108. Platelet counts are stable for now. The patient is on vital AF at the rate of 57 mL an hour which is currently at goal. Doppler of the lower extremity was done and the results were negative. The patient is on no anticoagulants for now. Also, antiphospholipid and anti-cardiolipin antibodies were sent and the results are still pending for now. Nephrology is on the case for now. Patient was reevaluated today on 07/20/21, remains in the ICU, intubated and mechanically ventilated. She is presently on assist control rate of 24, volume 400 FiO2 30% PEEP 5 ABG showed a pO2 of 76 pCO2 34 pH of 7.43. Hence no changes were made in her present ventilator settings. Patient is on IV fluid she was on D5W at 75 mL/h, now she is on 0.9 normal saline at 20 mL per hour. She is receiving enteral tube feeding, remains on relatively high-dose of steroids/Solu-Medrol for presumptive lupus encephalitis and lupus pneumonitis. Patient is not requiring any sedation, her chest x-ray continues to show multifocal pneumonia bilaterally left more so than right, patient is opening eyes, following very simple instructions, and this is a new finding implying improved mental status. However the patient is generally weak, and I don't believe she is ready for any weaning trials at this point. But we'll continue the same ventilatory support, we'll continue nutritional support, continue steroids and antibiotics empirically, although I am mostly suspecting lupus pneumonitis rather than bacterial pneumonia. WBC count today is 20.7 hemoglobin is 9 ABG as noted earlier. Renal functioning is poor with a BUN of 129 creatinine 3.93. Improving compared to the last few days. Patient remains on Zosyn, and she also remains on methylprednisolone 125 mg IV push every 6 hours. She is on insulin she is also on Diflucan. The patient was seen today 07/21/2021 in follow-up in the intensive care unit. He remains intubated on a mechanical ventilator. Current settings are assist- control mode with a rate of 24, tidal volume 400, FiO2 30% and a PEEP of 5. Morning blood gases revealed a PaO2 of 75, pCO2 33, pH 7.45. No IV fluids running currently. She is off sedation. She is receiving vital AF at 57 ML's per hour which is goal. She remains in atrial fibrillation with a ventricular paced rhythm. Chest x-ray continues to show bilateral airspace disease with associated effusions. No evidence of pneumothorax. Endotracheal and nasogastric tubes are in good position. Left jugular CVP catheter in place. No dasha pacemaker, valve replacement. Bronchial wash findings are positive for Heidi only. White count 19.9. Hemoglobin 8.7. Sodium 141. Potassium 3.4. BUN 131. Creatinine 3.48. Glucose 149. She is continued on fluconazole. Remains on high-dose Solu-Medrol, bronchodilators. Levemir with sliding scale for glucose control. Remains on Keppra. No seizure activity noted. Continued on sodium bicarb tablets. Potassium being replaced. Objective - Vital Signs Vital signs: Vital Signs Temp 98.3 F 07/21/21 08:00 Pulse 76 07/21/21 11:06 Resp 27 H 07/21/21 09:00 BP 127/57 07/21/21 09:00 Pulse Ox 98 07/21/21 09:00 Intake & Output 07/20/21 07/21/21 07/21/21 18:59 06:59 18:59 Intake Total 1964 1584 331 Output Total 990 900 275 Balance 974 684 56 Weight 83 kg 84 kg Intake: IV 620 300 130 .9 kvo 120 100 30 Dextrose 5% in Water 1, 300 000 ml @ 75 mls/hr IV . [id number] [facility] Rx#:[id number] Fluconazole in NaCl,Iso- 100 Osm 200 mg In Saline 1 100ml.bag @ 100 mls/hr IVPB Q24H [facility] Rx#: [id number] Piperacillin-Tazobactam 3 100 .375 gm In Sodium Chloride 0.9% 100 ml @ 25 mls/hr IVPB Q12HR [facility] Rx #:[id number] levETIRAcetam IV 500 mg 100 100 100 In Sodium Chloride 0.9% 100 ml @ 400 mls/hr IVPB Q12HR COUNT INCLUDES THE [facility] Rx#:[id number] Tube Feeding 684 684 171 Other 660 600 30 Output: Urine 990 900 275 Other: Voiding Method Indwelling Catheter Indwelling Catheter Indwelling Catheter ABP, PAP, CO, CI - Last Documented Arterial Blood Pressure 96/94 - Exam GENERAL EXAM: Intubated on mechanical ventilator, 71-year-old female patient, comfortable in no apparent distress. HEAD: Normocephalic. EYES: Sluggish reaction of pupils, equal size. NOSE: Clear with pink turbinates. THROAT: Oral endotracheal and gastric tube secured in place No erythema or exudates. NECK: Left IJ catheter in place. No masses, no JVD. CHEST: No chest wall deformity. LUNGS: Equal air entry with bilateral scattered rhonchi, crackles in the bases. CVS: S1 and S2 normal with no audible murmur, regular rhythm. V-paced ABDOMEN: No hepatosplenomegaly, normal bowel sounds, no guarding or rigidity. SPINE: No scoliosis or deformity SKIN: No rashes CENTRAL NERVOUS SYSTEM: No focal deficits, tone is normal in all 4 extremities. EXTREMITIES: There is no peripheral edema. No clubbing, no cyanosis. Peripheral pulses are intact. - Labs CBC & Chem 7: 07/21/21 05:45 07/21/21 05:45 Labs: Abnormal Lab Results - Last 24 Hours (Table) 07/16/21 07/18/21 07/20/21 Range/Units 14:38 09:53 12:26 WBC (3.8-10.6) k/uL RBC (3.80-5.40) m/uL Hgb (11.4-16.0) gm/dL Hct (34.0-46.0) % RDW (11.5-15.5) % Plt Count (150-450) k/uL Dil Tate Viper Venom 53 H (<44) Sec(s) dRVVT 50:50 45 H (<44) Sec(s) ABG pCO2 (35-45) mmHg ABG pO2 (83-108) mmHg Potassium (3.5-5.1) mmol/L Carbon Dioxide (22-30) mmol/L BUN (7-17) mg/dL Creatinine (0.52-1.04) mg/dL Glucose (74-99) mg/dL POC Glucose (mg/dL) 189 H (75-99) mg/dL Calcium (8.4-10.2) mg/dL Free [place] LC, Quant 12.13 H (0.33-1.94) mg/dL Free Lambda LC, Quant 11.98 H (0.57-2.63) mg/dL 07/20/21 07/20/21 07/21/21 Range/Units 17:41 23:46 05:35 WBC (3.8-10.6) k/uL RBC (3.80-5.40) m/uL Hgb (11.4-16.0) gm/dL Hct (34.0-46.0) % RDW (11.5-15.5) % Plt Count (150-450) k/uL Dil Tate Viper Venom (<44) Sec(s) dRVVT 50:50 (<44) Sec(s) ABG pCO2 33 L (35-45) mmHg ABG pO2 75 L (83-108) mmHg Potassium (3.5-5.1) mmol/L Carbon Dioxide (22-30) mmol/L BUN (7-17) mg/dL Creatinine (0.52-1.04) mg/dL Glucose (74-99) mg/dL POC Glucose (mg/dL) 142 H 175 H (75-99) mg/dL Calcium (8.4-10.2) mg/dL Free [place] LC, Quant (0.33-1.94) mg/dL Free Lambda LC, Quant (0.57-2.63) mg/dL 07/21/21 07/21/21 07/21/21 Range/Units 05:43 05:45 05:45 WBC 19.9 H (3.8-10.6) k/uL RBC 3.07 L (3.80-5.40) m/uL Hgb 8.7 L (11.4-16.0) gm/dL Hct 27.5 L (34.0-46.0) % RDW 17.2 H (11.5-15.5) % Plt Count 109 L (150-450) k/uL Dil Tate Viper Venom (<44) Sec(s) dRVVT 50:50 (<44) Sec(s) ABG pCO2 (35-45) mmHg ABG pO2 (83-108) mmHg Potassium 3.4 L (3.5-5.1) mmol/L Carbon Dioxide 21 L (22-30) mmol/L BUN 131 H* (7-17) mg/dL Creatinine 3.48 H (0.52-1.04) mg/dL Glucose 149 H (74-99) mg/dL POC Glucose (mg/dL) 161 H (75-99) mg/dL Calcium 7.5 L (8.4-10.2) mg/dL Free [place] LC, Quant (0.33-1.94) mg/dL Free Lambda LC, Quant (0.57-2.63) mg/dL Microbiology - Last 24 Hours (Table) 07/16/21 14:38 Blood Culture - Preliminary Blood No Growth after 96 hours 07/17/21 10:00 Fungal Culture - Preliminary Bronchial Washings - Random Heidi albicans 07/11/21 12:45 Acid Fast Bacilli Smear - Final Bronchial Washings - Left Acid Fast Bacilli Culture - Preliminary Assessment and Plan Assessment: 1 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 Possible community-acquired pneumonia. 2 Septic shock with multisystem organ failure 3 Acute lupus encephalitis 4 Acute metabolic encephalopathy 5 Acute hemorrhagic infarct involving the right parietal lobe 5 mm in size 6 Acute kidney injury, suspect acute tubular necrosis 7 Acute shock liver 8 Underlying COPD, presently inactive 9 Benign essential hypertension 10 History of pacemaker implantation 11 Coronary arteriosclerosis and previous CABG 12 Valvular heart disease and mitral valve replacement acute Coumadin toxicity, treated and recovered 13 Thrombocytopenia secondary to sepsis Plan: The patient was seen and evaluated Chest x-ray, ABGs, medications and labs reviewed Give the patient a weaning trial Pressure support of 12 and a CPAP of 5 Continue fluconazole, steroids Continue nutritional support Prognosis remains guarded We will continue to follow and make further recommendations based on her clinical status I have personally seen and examined the patient, performed the documentation and the assessment and plan as written. Number of minutes spent on the visit: 15.
[2021-07-21 11:41] LABS: Glucose,Whole Blood 190 mg/dL (75-99)
--- NOTE | 2021-07-21 15:10 | P.PN ---
Subjective Progress Note Date: 07/21/21 Patient initially seen by Dr. Tremaine Mcguire. Subsequently seen by Dr. Yepez, who has signed off on the patient. Neurology was reconsulted for clearance for resuming anticoagulation. Patient had supratherapeutic INR, had developed small intracranial hemorrhage right parietal region. Coumadin was held, and still on hold. Patient was seen for a follow-up. Discussed with the nurse in detail. Patient is off sedation. She is much more alert and awake. She is following some commands. She still is generalized weak, all over. Patient is undergoing CPAP and may consider to be extubated in 1-2 days. Patient admits to having "no headache", by nodding head [id number]. SOME OF THE WORK-UP: Ammonia level <9 Creatning on initial presentation is 1.78-->4.16 AST: 23-->400-->522 ALT 9-->1800-->889 KELLY is positive Double strand DNA ab Indeterminate, complement C3: 20 and c4:2.0 C-ANCA and P-ANCA CT of the head was ordered by the ICU team and it's reported as left parietal area could reflect focal acute hemorrhagic infarct, I see more suspicious for hemorrhagic metastasis disease given the surrounding vasogenic edema. Correlate clinically. Correlation with old outside CT and/or MRI would be beneficial. I personally reviewed the CT of the head and the patient had a small focal right hemorrhage on the parietal. She had two repeated CT head at 8pm on 07/15/2021 and today around 9ish am and no change. EEG on 07/15/2021: This is an abnormal routine EEG. The background slowing is suggestive of severe encephalopathy. The triphasic wave are suggestive of likely toxic-metabolic etiology. Otherwise there is no focal slowing, epileptiform discharge or seizure on the EEG. EEG on 07/16/2021: This is an abnormal routine EEG. The background slowing is suggestive of severe encephalopathy. The triphasic wave are suggestive of likely toxic-metabolic etiology. Otherwise there is no focal slowing, epileptiform discharge or seizure on the EEG. Compared to the EEG from the prior day (07/15/2021), there is no change. Objective - Vital Signs Vital signs: Vital Signs Temp 98.2 F 07/21/21 12:00 Pulse 75 07/21/21 14:00 Resp 29 H 07/21/21 14:00 BP 132/68 07/21/21 14:00 Pulse Ox 96 07/21/21 14:00 Intake & Output 07/20/21 07/21/21 07/21/21 18:59 06:59 18:59 Intake Total 1964 1584 866 Output Total 990 900 750 Balance 974 684 116 Weight 83 kg 84 kg Intake: IV 620 300 180 .9 kvo 120 100 80 Dextrose 5% in Water 1, 300 000 ml @ 75 mls/hr IV . [id number] [facility] Rx#:[id number] Fluconazole in NaCl,Iso- 100 Osm 200 mg In Saline 1 100ml.bag @ 100 mls/hr IVPB Q24H [facility] Rx#: [id number] Piperacillin-Tazobactam 3 100 .375 gm In Sodium Chloride 0.9% 100 ml @ 25 mls/hr IVPB Q12HR [facility] Rx #:[id number] levETIRAcetam IV 500 mg 100 100 100 In Sodium Chloride 0.9% 100 ml @ 400 mls/hr IVPB Q12HR [facility] Rx#:[id number] Tube Feeding 684 684 456 Other 660 600 230 Output: Urine 990 900 750 Other: Voiding Method Indwelling Catheter Indwelling Catheter Indwelling Catheter # Bowel Movements 1 ABP, PAP, CO, CI - Last Documented Arterial Blood Pressure 96/94 - Exam Patient is intubated, not on any sedation. She is quite alert and awake. Patient's pupils are equal, round and reacting. Visual contreras could not be tested. Lower cranial nerves could not be tested. She has equal strength of the sewing machine assembler about 3 bilaterally. She does wiggle her feet bilaterally. She responds equal to painful stimuli in the toes bilaterally with facial grimacing bilaterally. Reflexes are 1+ in the right upper limb, 1 in the left upper limb. Plantars are flat. Tone is equal bilaterally. No seizure-like activity - Labs CBC & Chem 7: 07/22/21 05:54 07/22/21 05:54 Labs: Abnormal Lab Results - Last 24 Hours (Table) 07/17/21 07/20/21 07/20/21 Range/Units 10:00 17:41 23:46 WBC (3.8-10.6) k/uL RBC (3.80-5.40) m/uL Hgb (11.4-16.0) gm/dL Hct (34.0-46.0) % RDW (11.5-15.5) % Plt Count (150-450) k/uL ABG pCO2 (35-45) mmHg ABG pO2 (83-108) mmHg Potassium (3.5-5.1) mmol/L Carbon Dioxide (22-30) mmol/L BUN (7-17) mg/dL Creatinine (0.52-1.04) mg/dL Glucose (74-99) mg/dL POC Glucose (mg/dL) 142 H 175 H (75-99) mg/dL Calcium (8.4-10.2) mg/dL Viral Test See Below A 07/21/21 07/21/21 07/21/21 Range/Units 05:35 05:43 05:45 WBC 19.9 H (3.8-10.6) k/uL RBC 3.07 L (3.80-5.40) m/uL Hgb 8.7 L (11.4-16.0) gm/dL Hct 27.5 L (34.0-46.0) % RDW 17.2 H (11.5-15.5) % Plt Count 109 L (150-450) k/uL ABG pCO2 33 L (35-45) mmHg ABG pO2 75 L (83-108) mmHg Potassium (3.5-5.1) mmol/L Carbon Dioxide (22-30) mmol/L BUN (7-17) mg/dL Creatinine (0.52-1.04) mg/dL Glucose (74-99) mg/dL POC Glucose (mg/dL) 161 H (75-99) mg/dL Calcium (8.4-10.2) mg/dL Viral Test 07/21/21 07/21/21 Range/Units 05:45 11:39 WBC (3.8-10.6) k/uL RBC (3.80-5.40) m/uL Hgb (11.4-16.0) gm/dL Hct (34.0-46.0) % RDW (11.5-15.5) % Plt Count (150-450) k/uL ABG pCO2 (35-45) mmHg ABG pO2 (83-108) mmHg Potassium 3.4 L (3.5-5.1) mmol/L Carbon Dioxide 21 L (22-30) mmol/L BUN 131 H* (7-17) mg/dL Creatinine 3.48 H (0.52-1.04) mg/dL Glucose 149 H (74-99) mg/dL POC Glucose (mg/dL) 190 H (75-99) mg/dL Calcium 7.5 L (8.4-10.2) mg/dL Viral Test Microbiology - Last 24 Hours (Table) 07/16/21 14:38 Blood Culture - Preliminary Blood No Growth after 96 hours Assessment and Plan Assessment: Acute small Hemorrhagic stroke over the right parietal: Unsure cause. Possibly could be due to episode of supratherapeutic INR (was as high as 6.4, for which she received reversal on 07/13 and currently 1.5). Cannot rule out processes hemorrhagic metastasis but seems unlikely since only lesion.---stable. Altered mental status due to multifactorial: Septic encephalopathy, metabolic encephalopathy. Septic shock with multisystem organ failure on pressor. History of Lupus for years Acute kidney injury trending up Acute hypoxic respiratory failure due to left lung pneumonia indicating Heidi albicans Acute shock liver--trending down Electrolyte abnormality: Hypocalcemia Acute Coumadin toxicity that received reversal improved and INR is subtherapeutic History of coronary artery disease status post the CABG s/p Pacemaker on coumadin Valvular heart surgery Hypertension Hyperlipidemia Plan: Repeat CT head today to assess any change of intracranial hemorrhage. If resolved, then may resume anticoagulation. Continue Keppra 500mg IV every 12 hours as seizure prophylaxis for total for 7 days--stop on 07/22/2021 (especially with brain bleed) and after that discontinue (patient does not have any clinic or electrographic seizure). Coumadin is held and I recommend that she remain on hold for now. Avoid any antiplatelets or anticoagulation because of acute bleed Every hour neuro checks Nephrology team is on board Rheumatology is on board and feel patient has SLE. Currently patient is on Solumedrol 60mg every 12 hour. I.D. is on board I'll defer the rest of the medical management to the primary and ICU team The plan was discussed with the patient's nurse. Addendum: Computed tomography scan of head was performed today. It revealed unchanged right posterior parietal subcortical white matter focus measuring 6 mm, likely representing small intraparenchymal hemorrhage. No additional evidence for new acute hemorrhage. Based upon continued presence of intracranial hemorrhage, would continue to hold off on anticoagulation. Repeat CT head in 7 days.
[2021-07-21] MEDS: FLUCONAZOLE IN NACL,ISO-OSM 200 MG in SALINE 1 100ML.BAG IVPB SCH (17:31)
[2021-07-21 17:32] LABS: Glucose,Whole Blood 131 mg/dL (75-99)
[2021-07-21] MEDS: SODIUM CHLORIDE 0.9% 1,000 ML IV SCH (17:35)
--- NOTE | 2021-07-21 17:38 | CT ---
EXAMINATION TYPE: CT brain wo con CT DLP: 1173.4 mGycm, Automated exposure control for dose reduction was used. DATE OF EXAM: 07/21/2021 5:15 PM COMPARISON: Prior CT Brain from 07/18/2021. CLINICAL INDICATION:Female, 71 years old with history of Followup ICH, ?Resolved, need to restart ant icoag, ams TECHNIQUE: Brain: Multiple axial CT images of the brain were obtained without IV contrast. FINDINGS: Brain: Extra-axial spaces: No abnormal extra-axial fluid collections. Ventricular system: Within normal limits Cerebral parenchyma: Persistent hyperdense focus measuring 6 mm in the right posterior parietal lobe subcortical white matter. No additional areas of hemorrhage suggested. The bashir-white junction is we ll differentiated. Cerebellum: Unremarkable. Mass effect: No evidence of midline shift. Intracranial vasculature: unremarkable Soft tissues: Normal. Calvarium/osseous structures: No depressed skull fracture. Paranasal sinuses and mastoid air cells: Mild scattered paranasal sinus disease. Visualized orbits: Orbital contents are intact. Other: Partially visualized nasogastric and endotracheal tube. IMPRESSION: Unchanged right posterior parietal subcortical white matter focus measuring 6 mm likely representing small intraparenchymal hemorrhage. No additional evidence for new acute hemorrhage.
--- NOTE | 2021-07-21 18:23 | PN ---
PROGRESS NOTE This 71-year-old white female has bilobular pneumonia, status post lupus pneumonitis, acute hypoxemic respiratory distress. Her creatinine continues to improve. She is intubated on mechanical ventilator. PEEP is only 5, FiO2 is 30. Off sedation. Creatinine was 4 three days ago; now it is 3.43. Chest x-ray shows bilateral airspace disease with effusion. CT scan of the head today shows unchanged 5 mm spot in the brain, questionable what this is. It is not keeping her on the vent. Discussed with Dr. Zapata a few days ago. White count is down to 19.9, hemoglobin is 8.7, potassium 3.4, sodium 141. She is on fluconazole, high-dose Solu-Medrol, which appears to be improving her renal function, Levemir for sliding scale. She remains on Keppra. No seizures. sodium bicarb, potassium placement. Blood pressure 127/77, respiratory rate 27, temperature 98.3, pulse 76, O2 98. Resting comfortably on vent. GI soft. HEART: S1, S2. Chest has equal entry with bilateral scattered rhonchi, crackles in the base. Abdomen is soft. Spine: No scoliosis. Skin: No rash. MIME ARTIST within normal limits. Pupils are reactive. White count is 19.9, hemoglobin 8.7. BUN is 131, creatinine is 3.48. Sodium 141, potassium 3.4. ASSESSMENT: 1. Acute hypoxemic respiratory failure secondary to lupus pneumonitis. 2. Community-acquired pneumonia, possibly aspiration. 3. Status post ureteral stenosis with stent placement. 4. Possibly acute lupus encephalitis. 5. Septic shock with multi-organ failure. 6. Metabolic encephalopathy. 7. Right parietal lobe 5 mm possible infarct versus hemorrhagic white spot or cyst. 8. Acute kidney injury. 9. Acute shock liver. 10.Chronic obstructive pulmonary disease. 11.Hypertension. 12.Pacemaker. 13.Coronary artery bypass grafting. 14.Valvular heart disease. 15.Thrombocytopenia. Remains on steroids, fluconazole, nutritional support. Prognosis is guarded, but she is improving on a daily basis. Prognosis is guarded. Continue current treatments. She appears to be responding and doing well once the high-dose Solu-Medrol was started. Continue on this at this point. MMODL / IJN: [id number] /
[2021-07-22 00:02] LABS: Glucose,Whole Blood 201 mg/dL (75-99)
[2021-07-22 00:20] LABS: Glucose,Whole Blood 192 mg/dL (75-99)
[2021-07-22] MEDS: METOCLOPRAMIDE 5 MG/ML 2 ML VIAL IVP SCH ×4 (00:20→18:10)
[2021-07-22] MEDS: methylPREDNISolone SOD SUCCI 125 MG/2 ML VIAL IV SCH ×4 (00:25→18:17)
[2021-07-22] MEDS: INSULIN ASPART (NovoLOG) 100 UNIT/ML VIAL SQ SCH ×4 (00:26→18:17)
[2021-07-22] MEDS: IPRATROPIUM-ALBUTEROL 3 ML NEB INHALATION SCH ×6 (03:55→23:16)
[2021-07-22 05:46] LABS: Glucose,Whole Blood 212 mg/dL (75-99)
[2021-07-22] MEDS: INSULIN DETEMIR (LEVEMIR) 100 UNIT/ML SYR SQ SCH (05:55)
[2021-07-22 06:06] LABS: ABG Base Excess 0.1 mmol/L; ABG HCO3 24 mmol/L (21-25); ABG Oxygen Saturation 95.6 % (94-97); ABG PCO2 33 mmHg (35-45); ABG PH 7.47 (7.35-7.45); ABG PO2 80 mmHg (83-108); ABG TCO2 25 mmol/L (19-24); Allen Test Performed? Yes
[2021-07-22 06:47] LABS: Anisocytosis Slight; Basophils % (A) 0 %; Eosinophils % (A) 0 %; HCT 28.9 % (34.0-46.0); HGB 9.1 gm/dL (11.4-16.0); Hypochromasia Slight; Lymphocytes # (A) 0.2 k/uL (1.0-4.8); Lymphocytes % (A) 1 %; MCH 28.3 pg (25.0-35.0); MCHC 31.4 g/dL (31.0-37.0); MCV 90.1 fL (80.0-100.0); Mean Platelet Volume 11.4; Monocytes # (A) 0.3 k/uL (0-1.0); Monocytes % (A) 2 %; Neutrophils # (A) 19.6 k/uL (1.3-7.7); Neutrophils % (A) 97 %; Platelet Count 128 k/uL (150-450); RBC 3.21 m/uL (3.80-5.40); RDW 16.9 % (11.5-15.5); WBC 20.1 k/uL (3.8-10.6)
[2021-07-22 07:06] LABS: Albumin 2.2 g/dL (3.5-5.0); Calcium 7.8 mg/dL (8.4-10.2); Potassium 3.7 mmol/L (3.5-5.1); Total Bilirubin 1.2 mg/dL (0.2-1.3); Total Protein 5.4 g/dL (6.3-8.2)
[2021-07-22] MEDS: CHLORHEXIDINE GLUCONATE 15 ML CUP MUCOUS MEM SCH ×2 (08:27→20:31)
[2021-07-22] MEDS: levETIRAcetam IV 500 MG in SODIUM CHLORIDE 0.9% 100 ML IVPB SCH ×2 (08:27→20:31)
[2021-07-22] MEDS: SODIUM BICARBONATE TAB 650 MG TAB PO SCH ×2 (08:27→20:31)
--- NOTE | 2021-07-22 08:59 | XR ---
EXAMINATION TYPE: XR chest 1V portable DATE OF EXAM: 07/22/2021 COMPARISON: NONE HISTORY: Respiratory failure TECHNIQUE: Single frontal view of the chest is obtained. FINDINGS: Chronic rib deformities are seen. ET and NG tube stable. Postsurgical changes and cardiac device stable. Diffuse interstitial pattern with bilateral infiltrate and pleural effusion. Underlyin g COPD noted. No pneumothorax. Diffuse osteopenia. Atherosclerotic change aorta. IMPRESSION: 1. COPD with bilateral infiltrate and pleural effusion correlate for superimposed CHF otherwise consi sylvia pneumonia. Findings stable.
--- NOTE | 2021-07-22 10:15 | P.PN ---
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 On today's evaluation, the patient is on no sedation. She is opening her eyes and she is following simple commands. She is profoundly weak and she is barely able to move her toes and her fingers in her upper extremities. She is blinking. She is opening her eyes. He is following simple commands. No seizure activity has been noted for now. The patient remains on a mechanical ventilator. On today's evaluation, she is an assist-control mode with a rate of 24 with a tidal volume of 400 and a PEEP of 6 with an FiO2 of 30%. The chest x-ray is still showing extensive consolidation of the left lung. Nevertheless, the patient continues to have stable oxygenation and a blood gas today shows a pH of 7.46 with a pCO2 of 35 and a pO2 of 87. The bronchoscopy and bronchial lavage and the second occasion showed Heidi. The patient remains on Diflucan. Meanwhile, there is concern for lupus pneumonitis and questionable encephalitis picture. The patient remains on high dose IV Solu Medrol 125 mg every 6 hours. This may have contributed to her improved mentation. Renal function continues to be impaired at stable. On today's blood work, sodium is at 147 with a potassium level of 3.8, BUN is at 120 with a creatinine of 4.3 and a serum bicarb of 21. Overall fluid balance over the past 24 hours is +2.5 L. The patient's LFTs are improving, AST 60, ALT is 319, and there is a downgoing trend on the LFTs. The white cell count of 15.7 with a hemoglobin of 8.4 and a platelet count of 108. Platelet counts are stable for now. The patient is on vital AF at the rate of 57 mL an hour which is currently at goal. Doppler of the lower extremity was done and the results were negative. The patient is on no anticoagulants for now. Also, antiphospholipid and anti-cardiolipin antibodies were sent and the results are still pending for now. Nephrology is on the case for now. Patient was reevaluated today on 07/20/21, remains in the ICU, intubated and mechanically ventilated. She is presently on assist control rate of 24, volume 400 FiO2 30% PEEP 5 ABG showed a pO2 of 76 pCO2 34 pH of 7.43. Hence no changes were made in her present ventilator settings. Patient is on IV fluid she was on D5W at 75 mL/h, now she is on 0.9 normal saline at 20 mL per hour. She is receiving enteral tube feeding, remains on relatively high-dose of steroids/Solu-Medrol for presumptive lupus encephalitis and lupus pneumonitis. Patient is not requiring any sedation, her chest x-ray continues to show multifocal pneumonia bilaterally left more so than right, patient is opening eyes, following very simple instructions, and this is a new finding implying improved mental status. However the patient is generally weak, and I don't believe she is ready for any weaning trials at this point. But we'll continue the same ventilatory support, we'll continue nutritional support, continue steroids and antibiotics empirically, although I am mostly suspecting lupus pneumonitis rather than bacterial pneumonia. WBC count today is 20.7 hemoglobin is 9 ABG as noted earlier. Renal functioning is poor with a BUN of 129 creatinine 3.93. Improving compared to the last few days. Patient remains on Zosyn, and she also remains on methylprednisolone 125 mg IV push every 6 hours. She is on insulin she is also on Diflucan. The patient was seen today 07/21/2021 in follow-up in the intensive care unit. He remains intubated on a mechanical ventilator. Current settings are assist- control mode with a rate of 24, tidal volume 400, FiO2 30% and a PEEP of 5. Morning blood gases revealed a PaO2 of 75, pCO2 33, pH 7.45. No IV fluids running currently. She is off sedation. She is receiving vital AF at 57 ML's per hour which is goal. She remains in atrial fibrillation with a ventricular paced rhythm. Chest x-ray continues to show bilateral airspace disease with associated effusions. No evidence of pneumothorax. Endotracheal and nasogastric tubes are in good position. Left jugular CVP catheter in place. No dasha pacemaker, valve replacement. Bronchial wash findings are positive for Heidi only. White count 19.9. Hemoglobin 8.7. Sodium 141. Potassium 3.4. BUN 131. Creatinine 3.48. Glucose 149. She is continued on fluconazole. Remains on high-dose Solu-Medrol, bronchodilators. Levemir with sliding scale for glucose control. Remains on Keppra. No seizure activity noted. Continued on sodium bicarb tablets. Potassium being replaced. The patient is seen today 07/22/2021 in follow-up in the intensive care unit. She remains intubated on mechanical ventilator current settings assist-control mode at a rate of 24, tidal volume 400, FiO2 of 30% and a PEEP of 5. Morning blood gases reveal a P O2 of 80, pCO2 33, pH 7.47. She has 0.9 normal saline at a KVO. Vital AF at 57 ML's per hour which is goal for her nutritional support. She has been stooling frequently periods dual for C. difficile colitis is pending. She remains awake and alert. Following simple commands. Yesterday she tolerated pressure support and CPAP for about 4 hours and became tachypneic and tachycardic and was placed back on her original settings. She remains atrial fibrillation with V pacing. Follow-up computed tomography scan of the brain reveals an unchanged right posterior parietal subcortical white matter focus measuring 6 mm likely representing a small intraparenchymal hemorrhage. No additional evidence for new acute hemorrhage. White count 20.1. Hemoglobin 9.1. Platelets 128. Sodium 143. Potassium 3.7. Chloride 108. Bicarb 22. BUN 134. Creatinine 2.95. Glucose 209. AST 64. ALT 198. She remains on Keppra. No evidence of seizures. Continue on Levemir and NovoLog for glucose control. She remains on bronchodilators and IV Solu-Medrol at 125 mg every 6 hours. Objective - Vital Signs Vital signs: Vital Signs Temp 98.3 F 07/22/21 08:00 Pulse 76 07/22/21 09:00 Resp 24 07/22/21 09:00 BP 155/69 07/22/21 09:00 Pulse Ox 93 L 07/22/21 09:00 Intake & Output 07/21/21 07/22/21 07/22/21 18:59 06:59 18:59 Intake Total 1334 1204 301 Output Total 1100 1345 195 Balance 234 -141 106 Weight 84.4 kg Intake: IV 220 120 130 .9 kvo 120 120 30 levETIRAcetam IV 500 mg 100 100 In Sodium Chloride 0.9% 100 ml @ 400 mls/hr IVPB Q12HR [facility] Rx#:[id number] Tube Feeding 684 684 171 Other 430 400 Output: Urine 1100 1345 195 Other: Voiding Method Indwelling Catheter Indwelling Catheter Indwelling Catheter # Bowel Movements 1 1 ABP, PAP, CO, CI - Last Documented Arterial Blood Pressure 96/94 - Exam GENERAL EXAM: Intubated on mechanical ventilator, 71-year-old female patient, awake, alert, off sedation, comfortable in no apparent distress. HEAD: Normocephalic. EYES: Sluggish reaction of pupils, equal size. NOSE: Clear with pink turbinates. THROAT: Oral endotracheal and gastric tube secured in place No erythema or exudates. NECK: Left IJ catheter in place. No masses, no JVD. CHEST: No chest wall deformity. LUNGS: Equal air entry with bilateral scattered rhonchi, crackles in the bases. CVS: S1 and S2 normal with no audible murmur, regular rhythm. V-paced ABDOMEN: No hepatosplenomegaly, normal bowel sounds, no guarding or rigidity. SPINE: No scoliosis or deformity SKIN: No rashes CENTRAL NERVOUS SYSTEM: No focal deficits, tone is normal in all 4 extremities. EXTREMITIES: There is no peripheral edema. No clubbing, no cyanosis. Peripheral pulses are intact. - Labs CBC & Chem 7: 07/22/21 05:54 07/22/21 05:54 Labs: Abnormal Lab Results - Last 24 Hours (Table) 07/17/21 07/21/21 07/21/21 Range/Units 10:00 11:39 17:30 WBC (3.8-10.6) k/uL RBC (3.80-5.40) m/uL Hgb (11.4-16.0) gm/dL Hct (34.0-46.0) % RDW (11.5-15.5) % Plt Count (150-450) k/uL Neutrophils # (1.3-7.7) k/uL Lymphocytes # (1.0-4.8) k/uL ABG pH (7.35-7.45) ABG pCO2 (35-45) mmHg ABG pO2 (83-108) mmHg ABG Total CO2 (19-24) mmol/L Chloride (98-107) mmol/L BUN (7-17) mg/dL Creatinine (0.52-1.04) mg/dL Glucose (74-99) mg/dL POC Glucose (mg/dL) 190 H 131 H (75-99) mg/dL Calcium (8.4-10.2) mg/dL AST (14-36) U/L ALT (4-34) U/L Total Protein (6.3-8.2) g/dL Albumin (3.5-5.0) g/dL Viral Test See Below A 07/21/21 07/22/21 07/22/21 Range/Units 23:59 00:18 05:44 WBC (3.8-10.6) k/uL RBC (3.80-5.40) m/uL Hgb (11.4-16.0) gm/dL Hct (34.0-46.0) % RDW (11.5-15.5) % Plt Count (150-450) k/uL Neutrophils # (1.3-7.7) k/uL Lymphocytes # (1.0-4.8) k/uL ABG pH (7.35-7.45) ABG pCO2 (35-45) mmHg ABG pO2 (83-108) mmHg ABG Total CO2 (19-24) mmol/L Chloride (98-107) mmol/L BUN (7-17) mg/dL Creatinine (0.52-1.04) mg/dL Glucose (74-99) mg/dL POC Glucose (mg/dL) 201 H 192 H 212 H (75-99) mg/dL Calcium (8.4-10.2) mg/dL AST (14-36) U/L ALT (4-34) U/L Total Protein (6.3-8.2) g/dL Albumin (3.5-5.0) g/dL Viral Test 07/22/21 07/22/21 07/22/21 Range/Units 05:54 05:54 06:00 WBC 20.1 H (3.8-10.6) k/uL RBC 3.21 L (3.80-5.40) m/uL Hgb 9.1 L (11.4-16.0) gm/dL Hct 28.9 L (34.0-46.0) % RDW 16.9 H (11.5-15.5) % Plt Count 128 L (150-450) k/uL Neutrophils # 19.6 H (1.3-7.7) k/uL Lymphocytes # 0.2 L (1.0-4.8) k/uL ABG pH 7.47 H (7.35-7.45) ABG pCO2 33 L (35-45) mmHg ABG pO2 80 L (83-108) mmHg ABG Total CO2 25 H (19-24) mmol/L Chloride 108 H (98-107) mmol/L BUN 134 H* (7-17) mg/dL Creatinine 2.95 H (0.52-1.04) mg/dL Glucose 209 H (74-99) mg/dL POC Glucose (mg/dL) (75-99) mg/dL Calcium 7.8 L (8.4-10.2) mg/dL AST 64 H (14-36) U/L ALT 198 H (4-34) U/L Total Protein 5.4 L (6.3-8.2) g/dL Albumin 2.2 L (3.5-5.0) g/dL Viral Test Microbiology - Last 24 Hours (Table) 07/16/21 14:38 Blood Culture - Preliminary Blood No Growth after 120 hours Assessment and Plan Assessment: 1 Acute hypoxic respiratory failure secondary to suspected lupus pneumonitis. Possible community-acquired pneumonia. Bronchial wash findings are positive for Heidi albicans. Remains on fluconazole. 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 Follow-up computed tomography scan on 07/21/2021 remains unchanged 6 Acute kidney injury, suspect acute tubular necrosis 7 Acute shock liver, enzymes trending down 8 Underlying COPD, presently inactive 9 Benign essential hypertension 10 History of pacemaker implantation 11 Coronary arteriosclerosis and previous CABG 12 Valvular heart disease and mitral valve replacement 13 Acute Coumadin toxicity, treated and recovered 14 Thrombocytopenia secondary to sepsis Plan: The patient was seen and evaluated Chest x-ray, ABGs, medications and labs reviewed Decrease IV Solu-Medrol to 60 mg every 6 hours We'll try again today with weaning trial Pressure support of 12 and a CPAP of 5 Obtain weaning parameters Continue fluconazole Continue nutritional support Prognosis remains guarded We will continue to follow I have personally seen and examined the patient, performed the documentation and the assessment and plan as written. Number of minutes spent on the visit: 15.
--- NOTE | 2021-07-22 11:04 | P.PN ---
Subjective Patient is seen in follow-up for acute kidney injury. Creatinine trending down. Nonoliguric. Off vasopressors. Intubated. On 30% FiO2. Receiving tube feeds. Mentation slowly improving. No changes overnight. Vital signs stable. General: Intubated. LUNGS: Breath sounds decreased. HEART: Regular rate and rhythm. ABDOMEN: Soft, no distention. EXTREMITITES: Trace edema. Objective - Vital Signs Vital signs: Vital Signs Temp 98.3 F 07/22/21 08:00 Pulse 78 07/22/21 10:55 Resp 24 07/22/21 09:00 BP 155/69 07/22/21 09:00 Pulse Ox 93 L 07/22/21 09:00 Intake & Output 07/21/21 07/22/21 07/22/21 18:59 06:59 18:59 Intake Total 1334 1204 301 Output Total 1100 1345 195 Balance 234 -141 106 Weight 84.4 kg Intake: IV 220 120 130 .9 kvo 120 120 30 levETIRAcetam IV 500 mg 100 100 In Sodium Chloride 0.9% 100 ml @ 400 mls/hr IVPB Q12HR [facility] Rx#:[id number] Tube Feeding 684 684 171 Other 430 400 Output: Urine 1100 1345 195 Other: Voiding Method Indwelling Catheter Indwelling Catheter Indwelling Catheter # Bowel Movements 1 1 ABP, PAP, CO, CI - Last Documented Arterial Blood Pressure 96/94 - Labs CBC & Chem 7: 07/22/21 05:54 07/22/21 05:54 Labs: Abnormal Lab Results - Last 24 Hours (Table) 07/17/21 07/21/21 07/21/21 Range/Units 10:00 11:39 17:30 WBC (3.8-10.6) k/uL RBC (3.80-5.40) m/uL Hgb (11.4-16.0) gm/dL Hct (34.0-46.0) % RDW (11.5-15.5) % Plt Count (150-450) k/uL Neutrophils # (1.3-7.7) k/uL Lymphocytes # (1.0-4.8) k/uL ABG pH (7.35-7.45) ABG pCO2 (35-45) mmHg ABG pO2 (83-108) mmHg ABG Total CO2 (19-24) mmol/L Chloride (98-107) mmol/L BUN (7-17) mg/dL Creatinine (0.52-1.04) mg/dL Glucose (74-99) mg/dL POC Glucose (mg/dL) 190 H 131 H (75-99) mg/dL Calcium (8.4-10.2) mg/dL AST (14-36) U/L ALT (4-34) U/L Total Protein (6.3-8.2) g/dL Albumin (3.5-5.0) g/dL Viral Test See Below A 07/21/21 07/22/21 07/22/21 Range/Units 23:59 00:18 05:44 WBC (3.8-10.6) k/uL RBC (3.80-5.40) m/uL Hgb (11.4-16.0) gm/dL Hct (34.0-46.0) % RDW (11.5-15.5) % Plt Count (150-450) k/uL Neutrophils # (1.3-7.7) k/uL Lymphocytes # (1.0-4.8) k/uL ABG pH (7.35-7.45) ABG pCO2 (35-45) mmHg ABG pO2 (83-108) mmHg ABG Total CO2 (19-24) mmol/L Chloride (98-107) mmol/L BUN (7-17) mg/dL Creatinine (0.52-1.04) mg/dL Glucose (74-99) mg/dL POC Glucose (mg/dL) 201 H 192 H 212 H (75-99) mg/dL Calcium (8.4-10.2) mg/dL AST (14-36) U/L ALT (4-34) U/L Total Protein (6.3-8.2) g/dL Albumin (3.5-5.0) g/dL Viral Test 07/22/21 07/22/21 07/22/21 Range/Units 05:54 05:54 06:00 WBC 20.1 H (3.8-10.6) k/uL RBC 3.21 L (3.80-5.40) m/uL Hgb 9.1 L (11.4-16.0) gm/dL Hct 28.9 L (34.0-46.0) % RDW 16.9 H (11.5-15.5) % Plt Count 128 L (150-450) k/uL Neutrophils # 19.6 H (1.3-7.7) k/uL Lymphocytes # 0.2 L (1.0-4.8) k/uL ABG pH 7.47 H (7.35-7.45) ABG pCO2 33 L (35-45) mmHg ABG pO2 80 L (83-108) mmHg ABG Total CO2 25 H (19-24) mmol/L Chloride 108 H (98-107) mmol/L BUN 134 H* (7-17) mg/dL Creatinine 2.95 H (0.52-1.04) mg/dL Glucose 209 H (74-99) mg/dL POC Glucose (mg/dL) (75-99) mg/dL Calcium 7.8 L (8.4-10.2) mg/dL AST 64 H (14-36) U/L ALT 198 H (4-34) U/L Total Protein 5.4 L (6.3-8.2) g/dL Albumin 2.2 L (3.5-5.0) g/dL Viral Test Microbiology - Last 24 Hours (Table) 07/16/21 14:38 Blood Culture - Preliminary Blood No Growth after 120 hours Assessment and Plan Plan: Assessment: 1. Acute kidney injury secondary to ATN secondary to septic shock. Creatinine was 1.78 at admission and peaked at 4.57 - 2.95 today. Nonoliguric. Unknown baseline renal function. Noted to be KELLY positive, complements low and double- stranded DNA antibody 8. Hepatitis and ANCA negative. anti-GBM negative. No monoclonality Need to rule out GN - patient has history of lupus - on steroids. Also component of obstructive uropathy - status post left ureteral stent placement this admission. With multi-organ failure as well as thrombocytopenia, there is concern for antiphospholipid syndrome. Elevated BUN due to acute kidney injury as well as steroids. 2. Septic shock secondary to pneumonia. Status post bronchoscopy. Off vasopressor support; on antibiotics. 3. Metabolic acidosis secondary to acute kidney injury and IV fluids. On oral bicarbonate. 4. Acute hypoxic respiratory failure secondary to pneumonia. Bronchial washings positive for Heidi. 5. Shock liver. AST and ALT trending down. 6. Hypokalemia from diuresis. Replaced. 7. Hypomagnesemia from diuresis. Replaced. 8. Left-sided hydronephrosis. Urology following. Status post left ureteral stent placement 07/16/2021. 9. Hypernatremia from lack of oral water intake. Stable. 10. History of mitral valve repair. Plan: Maintain tube feeds and water flushes at 200 mL every 6 hours. Status post IV Lasix given 07/19/2021. Wean FiO2. Avoid nephrotoxins. Continue to monitor renal function and urine output. Maintain steroids - dose decreased. Rheumatology following. Will need kidney biopsy once hemodynamically stable for definitive diagnosis/classification of lupus nephritis. Continue to assess daily for need for renal replacement therapy. Anti-cardiolipin antibody negative. Anticoagulation currently held due to concern for brain hemorrhage. PTT normal. No DVT noted on lower extremity Dopplers.
[2021-07-22 11:17] LABS: Glucose,Whole Blood 215 mg/dL (75-99)
[2021-07-22] MEDS ORDERED: DEXMEDETOMIDINE/0.9% NACL(PMX) 400 MCG in EMPTY BAG 1 BAG IV SCH (15:15)
[2021-07-22] MEDS: SODIUM CHLORIDE 0.9% 1,000 ML IV SCH (15:47)
--- NOTE | 2021-07-22 17:40 | PN ---
PROGRESS NOTE This 71-year-old white female is improving daily with her renal functions, now 2.95 after we started treating her lupus pneumonitis and encephalitis and multi-organ failure with high-dose steroids, as she was not responding to antibiotics and fluids, etc. She is more and more alert every day, opening her eyes and responding a little bit. She still remains intubated. She is stooling frequently. Stool for C difficile is pending. She is awake and alert, following simple commands. Yesterday she was on CPAP for 4 hours, became tachycardic, when back to the vent. She has atrial fibrillation with V pacing subcortical white matter, possibly a hemorrhage, maybe not, it has not changed in three CT scans. Hemoglobin is 9.1, white count 20.1, potassium 3.7, sodium 143, creatinine is 2.95, much better. Levemir and Accu-Cheks. Temperature 98.3, pulse 76, respiratory rate 18 to 24, blood pressure 155/69, O2 93 on the vent. GI soft. No mass. Skin with no rashes. JUICE TESTER: She can move. She has got good tone in extremities. She has sluggish reaction but pupils are of equal size. She has opened and closed her eyes. She has no acute distress. Lungs are clear. Equal air flow. Cardiovascular S1, S2. White count 20.1, hemoglobin is 9.1, platelets 128. Sodium 134, creatinine down to 2.95. Blood cultures are negative. ASSESSMENT: 1. Acute hypoxemic respiratory failure secondary to suspected lupus pneumonitis versus aspiration pneumonia and community-acquired pneumonia. She had a bronchoscopy that showed Heidi albicans. She remains on fluconazole. 2. Multi-organ failure secondary to possibly a lupus flare and possibly septic shock. 3. Lupus encephalitis, metabolic encephalopathy, possibly hemorrhagic infarct of minimal nature in the brain. not the reason she is not being able to get off the vent. 4. Acute kidney injury, possible tubular necrosis. 5. Shock liver. 6. Chronic obstructive pulmonary disease. 7. Hypertension. 8. Pacemaker. 9. Atrial fibrillation. 10.Valvular heart disease. 11.Mitral valve replacement. 12.Thrombocytopenia. We are going to try to cut down her Solu-Medrol, which is greatly improving her. Weaning trial. Prognosis is guarded, but she appears to be improving on a daily basis. MMODL / IJN: [id number] /
[2021-07-22 17:52] LABS: Glucose,Whole Blood 163 mg/dL (75-99)
[2021-07-22] MEDS: FLUCONAZOLE IN NACL,ISO-OSM 200 MG in SALINE 1 100ML.BAG IVPB SCH (18:17)
--- NOTE | 2021-07-22 18:23 | P.PN ---
Subjective Progress Note Date: 07/20/21 Principal diagnosis: Pneumonia Patient is a 71-year-old female with a past medical history significant for COPD and recent admission to [facility] for pneumonia pr esented to hospital with increasing shortness of breath and cough with a CT suspicious for left lower lobe pneumonia. The patient is status post cystoscopy and left ureteral stent placement completed on 07/16/2021 On today's evaluation that is 07/20/2021, the patient continues to be afebrile , the patient is hemodynamically stable not requiring any pressor support the patient remains to be intubated on the vent, FiO2 is stable at 30 %, no significant purulent secretion through the ET diarrhea has been reported by nursing staff, patient did have some weaning parameter Objective - Vital Signs Vital signs: Vital Signs Temp 98.0 F 07/20/21 20:00 Pulse 79 07/20/21 20:00 Resp 25 H 07/20/21 20:00 BP 122/66 07/20/21 20:00 Pulse Ox 96 07/20/21 20:00 Intake & Output 07/20/21 07/20/21 07/21/21 06:59 18:59 06:59 Intake Total 1877 1964 591 Output Total 1450 990 175 Balance 427 974 416 Weight 83 kg Intake: IV 1160 620 220 .9 kvo 60 120 20 Dextrose 5% in Water 1, 900 300 000 ml @ 75 mls/hr IV . [id number] [facility] Rx#:[id number] Fluconazole in NaCl,Iso- 100 Osm 200 mg In Saline 1 100ml.bag @ 100 mls/hr IVPB Q24H [facility] Rx#: [id number] Piperacillin-Tazobactam 3 100 100 .375 gm In Sodium Chloride 0.9% 100 ml @ 25 mls/hr IVPB Q12HR [facility] Rx #:[id number] levETIRAcetam IV 500 mg 100 100 100 In Sodium Chloride 0.9% 100 ml @ 400 mls/hr IVPB Q12HR [facility] Rx#:[id number] Tube Feeding 627 684 171 Other 90 660 200 Output: Urine 1450 990 175 Other: Voiding Method Indwelling Catheter Indwelling Catheter ABP, PAP, CO, CI - Last Documented Arterial Blood Pressure 96/94 - Exam GENERAL DESCRIPTION: An elderly female intubated on vent RESPIRATORY SYSTEM: Unlabored breathing , decreased breath sounds at bases HEART: S1 S2 regular rate and rhythm , ABDOMEN: Soft , no tenderness EXTREMITIES: No edema feet - Labs CBC & Chem 7: 07/22/21 05:54 07/22/21 05:54 Labs: Abnormal Lab Results - Last 24 Hours (Table) 07/16/21 07/18/21 07/20/21 Range/Units 14:38 09:53 00:47 WBC (3.8-10.6) k/uL RBC (3.80-5.40) m/uL Hgb (11.4-16.0) gm/dL Hct (34.0-46.0) % RDW (11.5-15.5) % Plt Count (150-450) k/uL Neutrophils # (1.3-7.7) k/uL Lymphocytes # (1.0-4.8) k/uL Dil Tate Viper Venom 53 H (<44) Sec(s) dRVVT 50:50 45 H (<44) Sec(s) ABG pCO2 (35-45) mmHg ABG pO2 (83-108) mmHg Chloride (98-107) mmol/L Carbon Dioxide (22-30) mmol/L BUN (7-17) mg/dL Creatinine (0.52-1.04) mg/dL Glucose (74-99) mg/dL POC Glucose (mg/dL) 208 H (75-99) mg/dL Calcium (8.4-10.2) mg/dL Phosphorus (2.5-4.5) mg/dL AST (14-36) U/L ALT (4-34) U/L Total Protein (6.3-8.2) g/dL Albumin (3.5-5.0) g/dL Free Gem LC, Quant 12.13 H (0.33-1.94) mg/dL Free Lambda LC, Quant 11.98 H (0.57-2.63) mg/dL 07/20/21 07/20/21 07/20/21 Range/Units 04:41 04:41 05:45 WBC 20.7 H (3.8-10.6) k/uL RBC 3.19 L (3.80-5.40) m/uL Hgb 9.0 L (11.4-16.0) gm/dL Hct 28.8 L (34.0-46.0) % RDW 17.0 H (11.5-15.5) % Plt Count 115 L (150-450) k/uL Neutrophils # 20.0 H (1.3-7.7) k/uL Lymphocytes # 0.3 L (1.0-4.8) k/uL Dil Tate Viper Venom (<44) Sec(s) dRVVT 50:50 (<44) Sec(s) ABG pCO2 34 L (35-45) mmHg ABG pO2 76 L (83-108) mmHg Chloride 108 H (98-107) mmol/L Carbon Dioxide 21 L (22-30) mmol/L BUN 129 H* (7-17) mg/dL Creatinine 3.93 H (0.52-1.04) mg/dL Glucose 159 H (74-99) mg/dL POC Glucose (mg/dL) (75-99) mg/dL Calcium 7.5 L (8.4-10.2) mg/dL Phosphorus 5.5 H (2.5-4.5) mg/dL AST 69 H (14-36) U/L ALT 281 H (4-34) U/L Total Protein 5.5 L (6.3-8.2) g/dL Albumin 2.4 L (3.5-5.0) g/dL Free Gem LC, Quant (0.33-1.94) mg/dL Free Lambda LC, Quant (0.57-2.63) mg/dL 07/20/21 07/20/21 07/20/21 Range/Units 06:47 12:26 17:41 WBC (3.8-10.6) k/uL RBC (3.80-5.40) m/uL Hgb (11.4-16.0) gm/dL Hct (34.0-46.0) % RDW (11.5-15.5) % Plt Count (150-450) k/uL Neutrophils # (1.3-7.7) k/uL Lymphocytes # (1.0-4.8) k/uL Dil Tate Viper Venom (<44) Sec(s) dRVVT 50:50 (<44) Sec(s) ABG pCO2 (35-45) mmHg ABG pO2 (83-108) mmHg Chloride (98-107) mmol/L Carbon Dioxide (22-30) mmol/L BUN (7-17) mg/dL Creatinine (0.52-1.04) mg/dL Glucose (74-99) mg/dL POC Glucose (mg/dL) 151 H 189 H 142 H (75-99) mg/dL Calcium (8.4-10.2) mg/dL Phosphorus (2.5-4.5) mg/dL AST (14-36) U/L ALT (4-34) U/L Total Protein (6.3-8.2) g/dL Albumin (3.5-5.0) g/dL Free Gem LC, Quant (0.33-1.94) mg/dL Free Lambda LC, Quant (0.57-2.63) mg/dL Microbiology - Last 24 Hours (Table) 07/16/21 14:38 Blood Culture - Preliminary Blood No Growth after 96 hours 07/17/21 10:00 Fungal Culture - Preliminary Bronchial Washings - Random Heidi albicans 07/11/21 12:45 Acid Fast Bacilli Smear - Final Bronchial Washings - Left Acid Fast Bacilli Culture - Preliminary Assessment and Plan (1) Pneumonia Current Visit: Yes Status: Acute Code(s): J18.9 - PNEUMONIA, UNSPECIFIED ORGANISM SNOMED Code(s): 490199113 Plan: 1patient presented to hospital with acute respiratory failure with in this patient did have hypoxemia increasing shortness of breath and cough with evidence of left lower lobe pneumonia on the CT and recently admitted and treated at [facility] having intercourse for the gram-negative pathogen. 2patient did have worsening of respiratory status requiring intubation patient is status post bronchoscopy and lavage those cultures are growing Heidi 3patient did have worsening of the kidney function with evidence of left-sided hydronephrosis the patient is status post cystoscopy and left ureter stent placement completed 07/16/2021, 4-patient has shown some clinical improvement fever has resolved white count is showing a downward trend, patient is currently being treated with the Zosyn and Diflucan and continue supportive care Time with Patient: Less than 30
--- NOTE | 2021-07-22 18:25 | P.PN ---
Subjective Progress Note Date: 07/21/21 Principal diagnosis: Pneumonia Patient is a 71-year-old female with a past medical history significant for COPD and recent admission to [facility] for pneumonia pr esented to hospital with increasing shortness of breath and cough with a CT suspicious for left lower lobe pneumonia. The patient is status post cystoscopy and left ureteral stent placement completed on 07/16/2021 On today's evaluation that is 07/21/2021, the patient remains to be afebrile , the patient is hemodynamically stable not requiring any pressor support the patient FiO2 is currently stable at 30 %, no significant purulent secretion through the ET diarrhea has been reported by nursing staff, patient did have weaning trials from the vent this morning and apparently the patient did well Objective - Vital Signs Vital signs: Vital Signs Temp 98.2 F 07/21/21 12:00 Pulse 76 07/21/21 13:00 Resp 28 H 07/21/21 13:00 BP 135/63 07/21/21 13:00 Pulse Ox 97 07/21/21 13:00 Intake & Output 07/20/21 07/21/21 07/21/21 18:59 06:59 18:59 Intake Total 1964 1584 799 Output Total 990 900 650 Balance 974 684 149 Weight 83 kg 84 kg Intake: IV 620 300 170 .9 kvo 120 100 70 Dextrose 5% in Water 1, 300 000 ml @ 75 mls/hr IV . [id number] [facility] Rx#:[id number] Fluconazole in NaCl,Iso- 100 Osm 200 mg In Saline 1 100ml.bag @ 100 mls/hr IVPB Q24H [facility] Rx#: [id number] Piperacillin-Tazobactam 3 100 .375 gm In Sodium Chloride 0.9% 100 ml @ 25 mls/hr IVPB Q12HR [facility] Rx #:[id number] levETIRAcetam IV 500 mg 100 100 100 In Sodium Chloride 0.9% 100 ml @ 400 mls/hr IVPB Q12HR [facility] Rx#:[id number] Tube Feeding 684 684 399 Other 660 600 230 Output: Urine 990 900 650 Other: Voiding Method Indwelling Catheter Indwelling Catheter Indwelling Catheter # Bowel Movements 1 ABP, PAP, CO, CI - Last Documented Arterial Blood Pressure 96/94 - Exam GENERAL DESCRIPTION: An elderly female intubated on vent RESPIRATORY SYSTEM: Unlabored breathing , decreased breath sounds at bases HEART: S1 S2 regular rate and rhythm , ABDOMEN: Soft , no tenderness EXTREMITIES: No edema feet - Labs CBC & Chem 7: 07/22/21 05:54 07/22/21 05:54 Labs: Abnormal Lab Results - Last 24 Hours (Table) 07/16/21 07/17/21 07/20/21 Range/Units 14:38 10:00 17:41 WBC (3.8-10.6) k/uL RBC (3.80-5.40) m/uL Hgb (11.4-16.0) gm/dL Hct (34.0-46.0) % RDW (11.5-15.5) % Plt Count (150-450) k/uL ABG pCO2 (35-45) mmHg ABG pO2 (83-108) mmHg Potassium (3.5-5.1) mmol/L Carbon Dioxide (22-30) mmol/L BUN (7-17) mg/dL Creatinine (0.52-1.04) mg/dL Glucose (74-99) mg/dL POC Glucose (mg/dL) 142 H (75-99) mg/dL Calcium (8.4-10.2) mg/dL Free Pooler LC, Quant 12.13 H (0.33-1.94) mg/dL Free Lambda LC, Quant 11.98 H (0.57-2.63) mg/dL Viral Test See Below A 07/20/21 07/21/21 07/21/21 Range/Units 23:46 05:35 05:43 WBC (3.8-10.6) k/uL RBC (3.80-5.40) m/uL Hgb (11.4-16.0) gm/dL Hct (34.0-46.0) % RDW (11.5-15.5) % Plt Count (150-450) k/uL ABG pCO2 33 L (35-45) mmHg ABG pO2 75 L (83-108) mmHg Potassium (3.5-5.1) mmol/L Carbon Dioxide (22-30) mmol/L BUN (7-17) mg/dL Creatinine (0.52-1.04) mg/dL Glucose (74-99) mg/dL POC Glucose (mg/dL) 175 H 161 H (75-99) mg/dL Calcium (8.4-10.2) mg/dL Free Pooler LC, Quant (0.33-1.94) mg/dL Free Lambda LC, Quant (0.57-2.63) mg/dL Viral Test 07/21/21 07/21/21 07/21/21 Range/Units 05:45 05:45 11:39 WBC 19.9 H (3.8-10.6) k/uL RBC 3.07 L (3.80-5.40) m/uL Hgb 8.7 L (11.4-16.0) gm/dL Hct 27.5 L (34.0-46.0) % RDW 17.2 H (11.5-15.5) % Plt Count 109 L (150-450) k/uL ABG pCO2 (35-45) mmHg ABG pO2 (83-108) mmHg Potassium 3.4 L (3.5-5.1) mmol/L Carbon Dioxide 21 L (22-30) mmol/L BUN 131 H* (7-17) mg/dL Creatinine 3.48 H (0.52-1.04) mg/dL Glucose 149 H (74-99) mg/dL POC Glucose (mg/dL) 190 H (75-99) mg/dL Calcium 7.5 L (8.4-10.2) mg/dL Free Pooler LC, Quant (0.33-1.94) mg/dL Free Lambda LC, Quant (0.57-2.63) mg/dL Viral Test Microbiology - Last 24 Hours (Table) 07/16/21 14:38 Blood Culture - Preliminary Blood No Growth after 96 hours 07/17/21 10:00 Fungal Culture - Preliminary Bronchial Washings - Random Heidi albicans 07/11/21 12:45 Acid Fast Bacilli Smear - Final Bronchial Washings - Left Acid Fast Bacilli Culture - Preliminary Assessment and Plan (1) Pneumonia Current Visit: Yes Status: Acute Code(s): J18.9 - PNEUMONIA, UNSPECIFIED ORGANISM SNOMED Code(s): 894298867 Plan: 1patient presented to hospital with acute respiratory failure with in this patient did have hypoxemia increasing shortness of breath and cough with evid ence of left lower lobe pneumonia on the CT and recently admitted and treated at [facility] having intercourse for the gram-negative pathogen. 2patient did have worsening of respiratory status requiring intubation patient is status post bronchoscopy and lavage those cultures are growing Heidi 3patient did have worsening of the kidney function with evidence of left-sided hydronephrosis the patient is status post cystoscopy and left ureter stent placement completed 07/16/2021, 4-patient is slowly clinically improving, the patient fever has resolved, however white count is slightly elevated more likely steroid effects and will monitor closely. 5patient has completed a 12 day course of Zosyn which should be enough for a nosocomial pneumonia and sputum was negative for any resistant pathogen anyway Time with Patient: Less than 30
--- NOTE | 2021-07-22 18:28 | P.PN ---
Subjective Progress Note Date: 07/22/21 Principal diagnosis: Pneumonia Patient is a 71-year-old female with a past medical history significant for COPD and recent admission to [facility] for pneumonia pr esented to hospital with increasing shortness of breath and cough with a CT suspicious for left lower lobe pneumonia. The patient is status post cystoscopy and left ureteral stent placement completed on 07/16/2021 On today's evaluation that is 07/22/2021, the patient is afebrile , the patient is hemodynamically stable not requiring any pressor support the patient FiO2 is currently stable at 30 %, no significant purulent secretion through the ET has been reported by nursing staff, patient is having diarrhea per the nursing staff Objective - Vital Signs Vital signs: Vital Signs Temp 98.3 F 07/22/21 08:00 Pulse 76 07/22/21 12:00 Resp 23 07/22/21 12:00 BP 146/76 07/22/21 12:00 Pulse Ox 92 L 07/22/21 12:00 Intake & Output 07/21/21 07/22/21 07/22/21 18:59 06:59 18:59 Intake Total 1334 1204 502 Output Total 1100 1345 430 Balance 234 -141 72 Weight 84.4 kg 84.4 kg Intake: IV 220 120 160 .9 kvo 120 120 60 levETIRAcetam IV 500 mg 100 100 In Sodium Chloride 0.9% 100 ml @ 400 mls/hr IVPB Q12HR [facility] Rx#:[id number] Tube Feeding 684 684 342 Other 430 400 Output: Urine 1100 1345 430 Other: Voiding Method Indwelling Catheter Indwelling Catheter Indwelling Catheter # Bowel Movements 1 1 ABP, PAP, CO, CI - Last Documented Arterial Blood Pressure 96/94 - Exam GENERAL DESCRIPTION: An elderly female intubated on vent RESPIRATORY SYSTEM: Unlabored breathing , decreased breath sounds at bases HEART: S1 S2 regular rate and rhythm , ABDOMEN: Soft , no tenderness EXTREMITIES: No edema feet - Labs CBC & Chem 7: 07/22/21 05:54 07/22/21 05:54 Labs: Abnormal Lab Results - Last 24 Hours (Table) 07/17/21 07/21/21 07/21/21 Range/Units 10:00 17:30 23:59 WBC (3.8-10.6) k/uL RBC (3.80-5.40) m/uL Hgb (11.4-16.0) gm/dL Hct (34.0-46.0) % RDW (11.5-15.5) % Plt Count (150-450) k/uL Neutrophils # (1.3-7.7) k/uL Lymphocytes # (1.0-4.8) k/uL ABG pH (7.35-7.45) ABG pCO2 (35-45) mmHg ABG pO2 (83-108) mmHg ABG Total CO2 (19-24) mmol/L Chloride (98-107) mmol/L BUN (7-17) mg/dL Creatinine (0.52-1.04) mg/dL Glucose (74-99) mg/dL POC Glucose (mg/dL) 131 H 201 H (75-99) mg/dL Calcium (8.4-10.2) mg/dL AST (14-36) U/L ALT (4-34) U/L Total Protein (6.3-8.2) g/dL Albumin (3.5-5.0) g/dL Viral Test See Below A 07/22/21 07/22/21 07/22/21 Range/Units 00:18 05:44 05:54 WBC 20.1 H (3.8-10.6) k/uL RBC 3.21 L (3.80-5.40) m/uL Hgb 9.1 L (11.4-16.0) gm/dL Hct 28.9 L (34.0-46.0) % RDW 16.9 H (11.5-15.5) % Plt Count 128 L (150-450) k/uL Neutrophils # 19.6 H (1.3-7.7) k/uL Lymphocytes # 0.2 L (1.0-4.8) k/uL ABG pH (7.35-7.45) ABG pCO2 (35-45) mmHg ABG pO2 (83-108) mmHg ABG Total CO2 (19-24) mmol/L Chloride (98-107) mmol/L BUN (7-17) mg/dL Creatinine (0.52-1.04) mg/dL Glucose (74-99) mg/dL POC Glucose (mg/dL) 192 H 212 H (75-99) mg/dL Calcium (8.4-10.2) mg/dL AST (14-36) U/L ALT (4-34) U/L Total Protein (6.3-8.2) g/dL Albumin (3.5-5.0) g/dL Viral Test 07/22/21 07/22/21 07/22/21 Range/Units 05:54 06:00 11:14 WBC (3.8-10.6) k/uL RBC (3.80-5.40) m/uL Hgb (11.4-16.0) gm/dL Hct (34.0-46.0) % RDW (11.5-15.5) % Plt Count (150-450) k/uL Neutrophils # (1.3-7.7) k/uL Lymphocytes # (1.0-4.8) k/uL ABG pH 7.47 H (7.35-7.45) ABG pCO2 33 L (35-45) mmHg ABG pO2 80 L (83-108) mmHg ABG Total CO2 25 H (19-24) mmol/L Chloride 108 H (98-107) mmol/L BUN 134 H* (7-17) mg/dL Creatinine 2.95 H (0.52-1.04) mg/dL Glucose 209 H (74-99) mg/dL POC Glucose (mg/dL) 215 H (75-99) mg/dL Calcium 7.8 L (8.4-10.2) mg/dL AST 64 H (14-36) U/L ALT 198 H (4-34) U/L Total Protein 5.4 L (6.3-8.2) g/dL Albumin 2.2 L (3.5-5.0) g/dL Viral Test Microbiology - Last 24 Hours (Table) 07/16/21 14:38 Blood Culture - Preliminary Blood No Growth after 120 hours Assessment and Plan (1) Pneumonia Current Visit: Yes Status: Acute Code(s): J18.9 - PNEUMONIA, UNSPECIFIED ORGANISM SNOMED Code(s): 772067975 Plan: 1patient presented to hospital with acute respiratory failure with in this patient did have hypoxemia increasing shortness of breath and cough with marcelino dence of left lower lobe pneumonia on the CT and recently admitted and treated at [facility] having intercourse for the gram-negative pathogen. 2patient did have worsening of respiratory status requiring intubation patient is status post bronchoscopy and lavage those cultures are growing Heidi 3patient did have worsening of the kidney function with evidence of left-sided hydronephrosis the patient is status post cystoscopy and left ureter stent placement completed 07/16/2021, 4-patient fever has resolved, however white count is slightly elevated more likely steroid effects and will monitor closely. 5patient has completed a 12 day course of Zosyn which should be enough for a n osocomial pneumonia and sputum was negative for any resistant pathogen 6-diarrhea more likely antibiotic associated and should improve after discontinuation of the Zosyn the patient stool for C. 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
[2021-07-23 00:13] LABS: Glucose,Whole Blood 179 mg/dL (75-99)
[2021-07-23] MEDS: METOCLOPRAMIDE 5 MG/ML 2 ML VIAL IVP SCH ×5 (00:42→23:22)
[2021-07-23] MEDS: methylPREDNISolone SOD SUCCI 125 MG/2 ML VIAL IV SCH ×5 (00:43→23:24)
[2021-07-23] MEDS: INSULIN ASPART (NovoLOG) 100 UNIT/ML VIAL SQ SCH ×5 (00:43→23:22)
[2021-07-23] MEDS: IPRATROPIUM-ALBUTEROL 3 ML NEB INHALATION SCH ×3 (03:21→10:45)
[2021-07-23 05:28] LABS: Glucose,Whole Blood 176 mg/dL (75-99)
[2021-07-23 05:42] LABS: ABG Base Excess 0.8 mmol/L; ABG HCO3 25 mmol/L (21-25); ABG Oxygen Saturation 95.7 % (94-97); ABG PCO2 35 mmHg (35-45); ABG PH 7.46 (7.35-7.45); ABG PO2 78 mmHg (83-108); ABG TCO2 26 mmol/L (19-24); Allen Test Performed? Yes
[2021-07-23 05:46] LABS: Anisocytosis Slight; Basophils % (A) 0 %; Eosinophils % (A) 0 %; HGB 9.3 gm/dL (11.4-16.0); Hypochromasia Slight; Lymphocytes # (A) 0.2 k/uL (1.0-4.8); Lymphocytes % (A) 1 %; MCHC 31.1 g/dL (31.0-37.0); MCV 89.9 fL (80.0-100.0); Mean Platelet Volume 11.4; Monocytes # (A) 0.5 k/uL (0-1.0); Monocytes % (A) 2 %; Neutrophils # (A) 20.2 k/uL (1.3-7.7); Neutrophils % (A) 96 %; Platelet Count 152 k/uL (150-450); RBC 3.34 m/uL (3.80-5.40); RDW 16.8 % (11.5-15.5)
[2021-07-23 05:59] LABS: Albumin 2.2 g/dL (3.5-5.0); Calcium 7.8 mg/dL (8.4-10.2); Potassium 3.4 mmol/L (3.5-5.1); Total Bilirubin 1.1 mg/dL (0.2-1.3); Total Protein 5.1 g/dL (6.3-8.2)
[2021-07-23 06:27] LABS: INR 1.3 (<1.2); Prothrombin Time 13.7 sec (9.0-12.0)
[2021-07-23] MEDS: INSULIN DETEMIR (LEVEMIR) 100 UNIT/ML SYR SQ SCH (06:50)
[2021-07-23] MEDS: levETIRAcetam IV 500 MG in SODIUM CHLORIDE 0.9% 100 ML IVPB SCH ×2 (08:51→21:08)
[2021-07-23] MEDS: SODIUM BICARBONATE TAB 650 MG TAB PO SCH ×2 (08:51→21:09)
[2021-07-23] MEDS: CHLORHEXIDINE GLUCONATE 15 ML CUP MUCOUS MEM SCH ×2 (08:51→09:22)
[2021-07-23] MEDS: POTASSIUM BICARBONATE/CIT AC 20 MEQ TABLET.EFF NG-TUBE SCH ×2 (08:59→10:46)
--- NOTE | 2021-07-23 09:00 | P.PN ---
Subjective Progress Note Date: 07/22/21 07/23/2019: Patient laying in the bed. No changes compared to yesterday. 07/22/2019: Patient initially seen by Dr. Tremaine Mcguire. Subsequently seen by Dr. Yepez, who has signed off on the patient. Neurology was reconsulted for clearance for resuming anticoagulation. Patient had supratherapeutic INR, had developed small intracranial hemorrhage right parietal region. Coumadin was held, and still on hold. Patient was seen for a follow-up. Discussed with the nurse in detail. Patient is off sedation. She is much more alert and awake. She is following some commands. She still is generalized weak, all over. Patient is undergoing CPAP and may consider to be extubated in 1-2 days. Patient admits to having "no headache", by nodding head [id number]. SOME OF THE WORK-UP: Ammonia level <9 Creatning on initial presentation is 1.78-->4.16 AST: 23-->400-->522 ALT 9-->1800-->889 KELLY is positive Double strand DNA ab Indeterminate, complement C3: 20 and c4:2.0 C-ANCA and P-ANCA CT of the head was ordered by the ICU team and it's reported as left parietal area could reflect focal acute hemorrhagic infarct, I see more suspicious for hemorrhagic metastasis disease given the surrounding vasogenic edema. Correlate clinically. Correlation with old outside CT and/or MRI would be beneficial. I personally reviewed the CT of the head and the patient had a small focal right hemorrhage on the parietal. She had two repeated CT head at 8pm on 07/15/2021 and today around 9ish am and no change. EEG on 07/15/2021: This is an abnormal routine EEG. The background slowing is suggestive of severe encephalopathy. The triphasic wave are suggestive of likely toxic-metabolic etiology. Otherwise there is no focal slowing, epileptiform discharge or seizure on the EEG. EEG on 07/16/2021: This is an abnormal routine EEG. The background slowing is suggestive of severe encephalopathy. The triphasic wave are suggestive of likely toxic-metabolic etiology. Otherwise there is no focal slowing, epil eptiform discharge or seizure on the EEG. Compared to the EEG from the prior day (07/15/2021), there is no change. Objective - Vital Signs Vital signs: Vital Signs Temp 97.7 F 07/23/21 08:00 Pulse 82 07/23/21 08:12 Resp 20 07/23/21 08:00 BP 138/61 07/23/21 08:00 Pulse Ox 97 07/23/21 08:00 Intake & Output 07/22/21 07/23/21 07/23/21 18:59 06:59 18:59 Intake Total 1004 1304 334 Output Total 989 1355 100 Balance 15 -51 234 Weight 84.4 kg 82 kg Intake: IV 320 220 20 .9 kvo 120 120 20 Fluconazole in NaCl,Iso- 100 Osm 200 mg In Saline 1 100ml.bag @ 100 mls/hr IVPB Q24H [facility] Rx#: [id number] levETIRAcetam IV 500 mg 100 100 In Sodium Chloride 0.9% 100 ml @ 400 mls/hr IVPB Q12HR [facility] Rx#:[id number] Tube Feeding 684 684 114 Other 400 200 Output: Urine 985 1355 100 Stool 4 Other: Voiding Method Indwelling Catheter Indwelling Catheter Indwelling Catheter ABP, PAP, CO, CI - Last Documented Arterial Blood Pressure 96/94 - Exam Patient is intubated, not on any sedation. She is slightly more drowsy today as compared to yesterday. Patient's pupils are equal, round and reacting. Visual contreras could not be tested. Lower cranial nerves could not be tested. She has equal strength of the all round logger about 3 bilaterally. She does wiggle her feet bilaterally. She responds equal to painful stimuli in the toes bilaterally with facial grimacing bilaterally. Reflexes are 1+ in the right upper limb, 1 in the left upper limb. Plantars are flat. Tone is equal bilaterally. No seizure- like activity. Patient appears generalized weak. - Labs CBC & Chem 7: 07/23/21 05:27 07/23/21 05:27 Labs: Abnormal Lab Results - Last 24 Hours (Table) 07/22/21 07/22/21 07/23/21 Range/Units 11:14 17:51 00:10 WBC (3.8-10.6) k/uL RBC (3.80-5.40) m/uL Hgb (11.4-16.0) gm/dL Hct (34.0-46.0) % RDW (11.5-15.5) % Neutrophils # (1.3-7.7) k/uL Lymphocytes # (1.0-4.8) k/uL PT (9.0-12.0) sec INR (<1.2) ABG pH (7.35-7.45) ABG pO2 (83-108) mmHg ABG Total CO2 (19-24) mmol/L Sodium (137-145) mmol/L Potassium (3.5-5.1) mmol/L Chloride (98-107) mmol/L BUN (7-17) mg/dL Creatinine (0.52-1.04) mg/dL Glucose (74-99) mg/dL POC Glucose (mg/dL) 215 H 163 H 179 H (75-99) mg/dL Calcium (8.4-10.2) mg/dL AST (14-36) U/L ALT (4-34) U/L Total Protein (6.3-8.2) g/dL Albumin (3.5-5.0) g/dL 07/23/21 07/23/21 07/23/21 Range/Units 05:26 05:27 05:27 WBC 21.0 H (3.8-10.6) k/uL RBC 3.34 L (3.80-5.40) m/uL Hgb 9.3 L (11.4-16.0) gm/dL Hct 30.0 L (34.0-46.0) % RDW 16.8 H (11.5-15.5) % Neutrophils # 20.2 H (1.3-7.7) k/uL Lymphocytes # 0.2 L (1.0-4.8) k/uL PT (9.0-12.0) sec INR (<1.2) ABG pH (7.35-7.45) ABG pO2 (83-108) mmHg ABG Total CO2 (19-24) mmol/L Sodium 146 H (137-145) mmol/L Potassium 3.4 L (3.5-5.1) mmol/L Chloride 109 H (98-107) mmol/L BUN 134 H* (7-17) mg/dL Creatinine 2.35 H (0.52-1.04) mg/dL Glucose 174 H (74-99) mg/dL POC Glucose (mg/dL) 176 H (75-99) mg/dL Calcium 7.8 L (8.4-10.2) mg/dL AST 55 H (14-36) U/L ALT 168 H (4-34) U/L Total Protein 5.1 L (6.3-8.2) g/dL Albumin 2.2 L (3.5-5.0) g/dL 07/23/21 07/23/21 Range/Units 05:27 05:37 WBC (3.8-10.6) k/uL RBC (3.80-5.40) m/uL Hgb (11.4-16.0) gm/dL Hct (34.0-46.0) % RDW (11.5-15.5) % Neutrophils # (1.3-7.7) k/uL Lymphocytes # (1.0-4.8) k/uL PT 13.7 H (9.0-12.0) sec INR 1.3 H (<1.2) ABG pH 7.46 H (7.35-7.45) ABG pO2 78 L (83-108) mmHg ABG Total CO2 26 H (19-24) mmol/L Sodium (137-145) mmol/L Potassium (3.5-5.1) mmol/L Chloride (98-107) mmol/L BUN (7-17) mg/dL Creatinine (0.52-1.04) mg/dL Glucose (74-99) mg/dL POC Glucose (mg/dL) (75-99) mg/dL Calcium (8.4-10.2) mg/dL AST (14-36) U/L ALT (4-34) U/L Total Protein (6.3-8.2) g/dL Albumin (3.5-5.0) g/dL Microbiology - Last 24 Hours (Table) 07/16/21 14:38 Blood Culture - Final Blood No Growth after 144 hours Assessment and Plan Assessment: Acute small intraparenchymal hemorrhage over the right parietal region: Unsure cause. Possibly could be due to episode of supratherapeutic INR (was as high as 6.4, for which she received reversal on 07/13 and currently 1.5). Cannot rule out processes hemorrhagic metastasis but seems unlikely since only lesion.---stable. Altered mental status due to multifactorial: Septic encephalopathy, metabolic encephalopathy. Septic shock with multisystem organ failure on pressor. History of Lupus for years Acute kidney injury. Patient's BUN is getting worse although creatinine is improving. Nephrology on board. 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 Plan: Computed tomography scan of head 07/22/2019 revealed unchanged right posterior parietal subcortical white matter focus measuring 6 mm, likely representing small intraparenchymal hemorrhage. No additional evidence for new acute hemorrhage. Based upon continued presence of intracranial hemorrhage, would continue to hold off on anticoagulation. Repeat CT head in 7 days. If resolved, then may resume anticoagulation at that time. We will discontinue Keppra from today as recommended by Dr. Tremaine Mcguire. The intraparenchymal hemorrhages small, likely not concerning for seizure focus. Coumadin is held and I recommend that she remain on hold for now. Avoid any antiplatelets or anticoagulation because of acute bleed Other management as per IM, critical care and multiple other medical specialties.
--- NOTE | 2021-07-23 09:15 | P.PN ---
Subjective Patient is seen in follow-up for acute kidney injury. Renal function improving. Nonoliguric. Intubated. On 30% FiO2. Receiving tube feeds. Mentation improved. Currently awake on vent. Vital signs stable. General: Intubated. LUNGS: Breath sounds decreased. HEART: Regular rate and rhythm. ABDOMEN: Soft, no distention. EXTREMITITES: Trace edema. Objective - Vital Signs Vital signs: Vital Signs Temp 97.7 F 07/23/21 08:00 Pulse 76 07/23/21 09:00 Resp 33 H 07/23/21 09:00 BP 138/69 07/23/21 09:00 Pulse Ox 99 07/23/21 09:00 Intake & Output 07/22/21 07/23/21 07/23/21 18:59 06:59 18:59 Intake Total 1004 1304 501 Output Total 989 1355 225 Balance 15 -51 276 Weight 84.4 kg 82 kg Intake: IV 320 220 130 .9 kvo 120 120 30 Fluconazole in NaCl,Iso- 100 Osm 200 mg In Saline 1 100ml.bag @ 100 mls/hr IVPB Q24H [facility] Rx#: [id number] levETIRAcetam IV 500 mg 100 100 100 In Sodium Chloride 0.9% 100 ml @ 400 mls/hr IVPB Q12HR [facility] Rx#:[id number] Tube Feeding 684 684 171 Other 400 200 Output: Urine 985 1355 225 Stool 4 Other: Voiding Method Indwelling Catheter Indwelling Catheter Indwelling Catheter ABP, PAP, CO, CI - Last Documented Arterial Blood Pressure 96/94 - Labs CBC & Chem 7: 07/23/21 05:27 07/23/21 05:27 Labs: Abnormal Lab Results - Last 24 Hours (Table) 07/22/21 07/22/21 07/23/21 Range/Units 11:14 17:51 00:10 WBC (3.8-10.6) k/uL RBC (3.80-5.40) m/uL Hgb (11.4-16.0) gm/dL Hct (34.0-46.0) % RDW (11.5-15.5) % Neutrophils # (1.3-7.7) k/uL Lymphocytes # (1.0-4.8) k/uL PT (9.0-12.0) sec INR (<1.2) ABG pH (7.35-7.45) ABG pO2 (83-108) mmHg ABG Total CO2 (19-24) mmol/L Sodium (137-145) mmol/L Potassium (3.5-5.1) mmol/L Chloride (98-107) mmol/L BUN (7-17) mg/dL Creatinine (0.52-1.04) mg/dL Glucose (74-99) mg/dL POC Glucose (mg/dL) 215 H 163 H 179 H (75-99) mg/dL Calcium (8.4-10.2) mg/dL AST (14-36) U/L ALT (4-34) U/L Total Protein (6.3-8.2) g/dL Albumin (3.5-5.0) g/dL 07/23/21 07/23/21 07/23/21 Range/Units 05:26 05:27 05:27 WBC 21.0 H (3.8-10.6) k/uL RBC 3.34 L (3.80-5.40) m/uL Hgb 9.3 L (11.4-16.0) gm/dL Hct 30.0 L (34.0-46.0) % RDW 16.8 H (11.5-15.5) % Neutrophils # 20.2 H (1.3-7.7) k/uL Lymphocytes # 0.2 L (1.0-4.8) k/uL PT (9.0-12.0) sec INR (<1.2) ABG pH (7.35-7.45) ABG pO2 (83-108) mmHg ABG Total CO2 (19-24) mmol/L Sodium 146 H (137-145) mmol/L Potassium 3.4 L (3.5-5.1) mmol/L Chloride 109 H (98-107) mmol/L BUN 134 H* (7-17) mg/dL Creatinine 2.35 H (0.52-1.04) mg/dL Glucose 174 H (74-99) mg/dL POC Glucose (mg/dL) 176 H (75-99) mg/dL Calcium 7.8 L (8.4-10.2) mg/dL AST 55 H (14-36) U/L ALT 168 H (4-34) U/L Total Protein 5.1 L (6.3-8.2) g/dL Albumin 2.2 L (3.5-5.0) g/dL 07/23/21 07/23/21 Range/Units 05:27 05:37 WBC (3.8-10.6) k/uL RBC (3.80-5.40) m/uL Hgb (11.4-16.0) gm/dL Hct (34.0-46.0) % RDW (11.5-15.5) % Neutrophils # (1.3-7.7) k/uL Lymphocytes # (1.0-4.8) k/uL PT 13.7 H (9.0-12.0) sec INR 1.3 H (<1.2) ABG pH 7.46 H (7.35-7.45) ABG pO2 78 L (83-108) mmHg ABG Total CO2 26 H (19-24) mmol/L Sodium (137-145) mmol/L Potassium (3.5-5.1) mmol/L Chloride (98-107) mmol/L BUN (7-17) mg/dL Creatinine (0.52-1.04) mg/dL Glucose (74-99) mg/dL POC Glucose (mg/dL) (75-99) mg/dL Calcium (8.4-10.2) mg/dL AST (14-36) U/L ALT (4-34) U/L Total Protein (6.3-8.2) g/dL Albumin (3.5-5.0) g/dL Microbiology - Last 24 Hours (Table) 07/16/21 14:38 Blood Culture - Final Blood No Growth after 144 hours Assessment and Plan Plan: Assessment: 1. Acute kidney injury secondary to ATN secondary to septic shock. Creatinine was 1.78 at admission and peaked at 4.57 - 2.35 today. Nonoliguric. Unknown baseline renal function. Noted to be KELLY positive, complements low and double- stranded DNA antibody 8. Hepatitis and ANCA negative. anti-GBM negative. No monoclonality Need to rule out GN - patient has history of lupus - on steroids. Also component of obstructive uropathy - status post left ureteral stent placement this admission. With multi-organ failure as well as thrombocytopenia, there is concern for antiphospholipid syndrome. Elevated BUN due to acute kidney injury as well as steroids. 2. Septic shock secondary to pneumonia. Status post bronchoscopy. Off vasopressor support; on antibiotics. 3. Metabolic acidosis secondary to acute kidney injury and IV fluids. On oral bicarbonate. 4. Acute hypoxic respiratory failure secondary to pneumonia. Bronchial washings positive for Heidi. 5. Shock liver. AST and ALT trending down. 6. Hypokalemia from poor intake. 7. Hypomagnesemia from diuresis and poor intake. Replaced. 8. Left-sided hydronephrosis. Urology following. Status post left ureteral stent placement 07/16/2021. 9. Hypernatremia from lack of oral water intake. 10. History of mitral valve repair. Plan: Maintain tube feeds - increase water flushes to 400 mL every 6 hours. Replace potassium. Status post IV Lasix given 07/19/2021. Wean FiO2. Avoid nephrotoxins. Continue to monitor renal function and urine output. Dose of steroids decreased 07/22/2021. Rheumatology following. Will need kidney biopsy once hemodynamically stable for definitive diagnosis/classification of lupus nephritis. Continue to assess daily for need for renal replacement therapy. Anti-cardiolipin antibody negative. PTT normal. No DVT noted on lower extremity Dopplers.
--- NOTE | 2021-07-23 09:23 | XR ---
EXAMINATION TYPE: XR chest 1V portable DATE OF EXAM: 07/23/2021 COMPARISON: 07/22/2021 HISTORY: SOB, Follow Up FINDINGS: Indwelling tubes and catheters are unchanged. No change in bibasilar and left perihilar opacities. Stable appearance of the cardio-mediastinal structures at this time. Pleural effusion unchanged. IMPRESSION: 1. Stable portable chest. Clinical correlation and follow up until resolution is recommended.
--- NOTE | 2021-07-23 10:40 | P.PN ---
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 On today's evaluation, the patient is on no sedation. She is opening her eyes and she is following simple commands. She is profoundly weak and she is barely able to move her toes and her fingers in her upper extremities. She is blinking. She is opening her eyes. He is following simple commands. No seizure activity has been noted for now. The patient remains on a mechanical ventilator. On today's evaluation, she is an assist-control mode with a rate of 24 with a tidal volume of 400 and a PEEP of 6 with an FiO2 of 30%. The chest x-ray is still showing extensive consolidation of the left lung. Nevertheless, the patient continues to have stable oxygenation and a blood gas today shows a pH of 7.46 with a pCO2 of 35 and a pO2 of 87. The bronchoscopy and bronchial lavage and the second occasion showed Heidi. The patient remains on Diflucan. Meanwhile, there is concern for lupus pneumonitis and questionable encephalitis picture. The patient remains on high dose IV Solu Medrol 125 mg every 6 hours. This may have contributed to her improved mentation. Renal function continues to be impaired at stable. On today's blood work, sodium is at 147 with a potassium level of 3.8, BUN is at 120 with a creatinine of 4.3 and a serum bicarb of 21. Overall fluid balance over the past 24 hours is +2.5 L. The patient's LFTs are improving, AST 60, ALT is 319, and there is a downgoing trend on the LFTs. The white cell count of 15.7 with a hemoglobin of 8.4 and a platelet count of 108. Platelet counts are stable for now. The patient is on vital AF at the rate of 57 mL an hour which is currently at goal. Doppler of the lower extremity was done and the results were negative. The patient is on no anticoagulants for now. Also, antiphospholipid and anti-cardiolipin antibodies were sent and the results are still pending for now. Nephrology is on the case for now. Patient was reevaluated today on 07/20/21, remains in the ICU, intubated and mechanically ventilated. She is presently on assist control rate of 24, volume 400 FiO2 30% PEEP 5 ABG showed a pO2 of 76 pCO2 34 pH of 7.43. Hence no changes were made in her present ventilator settings. Patient is on IV fluid she was on D5W at 75 mL/h, now she is on 0.9 normal saline at 20 mL per hour. She is receiving enteral tube feeding, remains on relatively high-dose of steroids/Solu-Medrol for presumptive lupus encephalitis and lupus pneumonitis. Patient is not requiring any sedation, her chest x-ray continues to show multifocal pneumonia bilaterally left more so than right, patient is opening eyes, following very simple instructions, and this is a new finding implying improved mental status. However the patient is generally weak, and I don't believe she is ready for any weaning trials at this point. But we'll continue the same ventilatory support, we'll continue nutritional support, continue steroids and antibiotics empirically, although I am mostly suspecting lupus pneumonitis rather than bacterial pneumonia. WBC count today is 20.7 hemoglobin is 9 ABG as noted earlier. Renal functioning is poor with a BUN of 129 creatinine 3.93. Improving compared to the last few days. Patient remains on Zosyn, and she also remains on methylprednisolone 125 mg IV push every 6 hours. She is on insulin she is also on Diflucan. Reevaluated today on 07/23/2021, patient remains in the ICU, intubated and mechanically ventilated. Patient was initially intubated on 07/11, and yesterday she was given a trial of weaning with a pressure support of 12 and CPAP, however the patient had a very poor weaning parameters mostly a nif -12 only. Hence decided not to extubate the patient as she would likely have very weak cough, and will not be able to clear secretions on her own. She is now on assist control rate of 24th of 1 400 FiO2 30% PEEP of 5. ABG showed a pO2 of 78 pCO2 of 35 pH of 7.46, hence no ventilator settings changes were made. Patient is receiving enteral feeding vital AF at 57 mL per hour. Today I have a feeling that the patient will be very difficult to wean and extubate successfully, hence I'm recommending a surgical evaluation for possible tracheostomy, PEG tube placement, and she will also eventually need a PICC line placement. This will be addressed hopefully today. In the meantime I recommended that she goes back on pressure support of 12 and CPAP. And will continue to check her weaning para meters again today hopefully the patient would have a better negative inspiratory force. Chest x-ray continues to show significant infiltrate in the left lung less infiltrate in the right lung. WBC count is 21 hemoglobin 9.3. INR is 1.3. Asymptomatic metabolic profile is normal BUN is improving creatinine is improving down to 2.35. Liver profile is also improving. Objective - Vital Signs Vital signs: Vital Signs Temp 97.7 F 07/23/21 08:00 Pulse 76 07/23/21 09:00 Resp 33 H 07/23/21 09:00 BP 138/69 07/23/21 09:00 Pulse Ox 99 07/23/21 09:00 Intake & Output 07/22/21 07/23/21 07/23/21 18:59 06:59 18:59 Intake Total 1004 1304 501 Output Total 989 1355 225 Balance 15 -51 276 Weight 84.4 kg 82 kg Intake: IV 320 220 130 .9 kvo 120 120 30 Fluconazole in NaCl,Iso- 100 Osm 200 mg In Saline 1 100ml.bag @ 100 mls/hr IVPB Q24H [facility] Rx#: [id number] levETIRAcetam IV 500 mg 100 100 100 In Sodium Chloride 0.9% 100 ml @ 400 mls/hr IVPB Q12HR [facility] Rx#:[id number] Tube Feeding 684 684 171 Other 400 200 Output: Urine 985 1355 225 Stool 4 Other: Voiding Method Indwelling Catheter Indwelling Catheter Indwelling Catheter ABP, PAP, CO, CI - Last Documented Arterial Blood Pressure 96/94 - Exam Physical Exam: Revealed a 71-year-old female in no distress, intubated and mechanically ventilated. Opens eyes, continues to follow simple instructions Head: Atraumatic, normocephalic. HEENT:[Neck is supple.] [No neck masses.] [No thyromegaly.] [No JVD.], EOMI, nonicteric., EOMI, nonicteric. Chest: [Symmetrical chest expansion, crackles at the bases especially at the left side..] Cardiac Exam: [Normal S1 and S2, no S3 gallop, no murmur.] Patient has a paced rhythm. Abdomen: [Soft, nontender, no megaly, no rebound, no guarding, normal bowel sounds.] Extremities: [No clubbing, no edema, no cyanosis.] Neurological Exam: Opens eyes, follows simple instructions, seems to be generally weak. Psychiatric: Could not fully assess, patient comprehends questions asked. And follows instructions Skin: No rashes. - Labs CBC & Chem 7: 07/23/21 05:07/23/21 05:27 Labs: Abnormal Lab Results - Last 24 Hours (Table) 07/22/21 07/22/21 07/23/21 Range/Units 11:14 17:51 00:10 WBC (3.8-10.6) k/uL RBC (3.80-5.40) m/uL Hgb (11.4-16.0) gm/dL Hct (34.0-46.0) % RDW (11.5-15.5) % Neutrophils # (1.3-7.7) k/uL Lymphocytes # (1.0-4.8) k/uL PT (9.0-12.0) sec INR (<1.2) ABG pH (7.35-7.45) ABG pO2 (83-108) mmHg ABG Total CO2 (19-24) mmol/L Sodium (137-145) mmol/L Potassium (3.5-5.1) mmol/L Chloride (98-107) mmol/L BUN (7-17) mg/dL Creatinine (0.52-1.04) mg/dL Glucose (74-99) mg/dL POC Glucose (mg/dL) 215 H 163 H 179 H (75-99) mg/dL Calcium (8.4-10.2) mg/dL AST (14-36) U/L ALT (4-34) U/L Total Protein (6.3-8.2) g/dL Albumin (3.5-5.0) g/dL 07/23/21 07/23/21 07/23/21 Range/Units 05:26 05: 05:27 WBC 21.0 H (3.8-10.6) k/uL RBC 3.34 L (3.80-5.40) m/uL Hgb 9.3 L (11.4-16.0) gm/dL Hct 30.0 L (34.0-46.0) % RDW 16.8 H (11.5-15.5) % Neutrophils # 20.2 H (1.3-7.7) k/uL Lymphocytes # 0.2 L (1.0-4.8) k/uL PT (9.0-12.0) sec INR (<1.2) ABG pH (7.35-7.45) ABG pO2 (83-108) mmHg ABG Total CO2 (19-24) mmol/L Sodium 146 H (137-145) mmol/L Potassium 3.4 L (3.5-5.1) mmol/L Chloride 109 H (98-107) mmol/L BUN 134 H* (7-17) mg/dL Creatinine 2.35 H (0.52-1.04) mg/dL Glucose 174 H (74-99) mg/dL POC Glucose (mg/dL) 176 H (75-99) mg/dL Calcium 7.8 L (8.4-10.2) mg/dL AST 55 H (14-36) U/L ALT 168 H (4-34) U/L Total Protein 5.1 L (6.3-8.2) g/dL Albumin 2.2 L (3.5-5.0) g/dL 07/23/21 07/23/21 Range/Units 05:27 05:37 WBC (3.8-10.6) k/uL RBC (3.80-5.40) m/uL Hgb (11.4-16.0) gm/dL Hct (34.0-46.0) % RDW (11.5-15.5) % Neutrophils # (1.3-7.7) k/uL Lymphocytes # (1.0-4.8) k/uL PT 13.7 H (9.0-12.0) sec INR 1.3 H (<1.2) ABG pH 7.46 H (7.35-7.45) ABG pO2 78 L (83-108) mmHg ABG Total CO2 26 H (19-24) mmol/L Sodium (137-145) mmol/L Potassium (3.5-5.1) mmol/L Chloride (98-107) mmol/L BUN (7-17) mg/dL Creatinine (0.52-1.04) mg/dL Glucose (74-99) mg/dL POC Glucose (mg/dL) (75-99) mg/dL Calcium (8.4-10.2) mg/dL AST (14-36) U/L ALT (4-34) U/L Total Protein (6.3-8.2) g/dL Albumin (3.5-5.0) g/dL Microbiology - Last 24 Hours (Table) 07/16/21 14:38 Blood Culture - Final Blood No Growth after 144 hours Assessment and Plan Assessment: Impression: 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 Possible community-acquired pneumonia. Septic shock with multisystem organ failure Acute lupus encephalitis. Acute metabolic encephalopathy. 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 Acute kidney injury, suspect acute tubular necrosis. Acute shock liver Underlying COPD, presently inactive Benign essential hypertension. History of pacemaker implantation. Coronary arteriosclerosis and previous CABG Valvular heart disease and mitral valve replacement acute Coumadin toxicity, treated and recovered Thrombocytopenia secondary to sepsis Recommendation: Continue ventilatory support. We'll try again pressure support and CPAP trials of weaning. However considering the patient has a very weak inspiratory force, I have a feeling she will require tracheostomy and PEG tube placement Continue nutritional support. Continue high-dose Solu-Medrol. I did cut down the dose yesterday from 125-to 60 mg IV push every 6 hours Continue antibiotics Continue GI and DVT prophylaxis. Continue bronchodilators. Continue insulin especially with the patient on high dose of steroids. Continue fluconazole. Continue Keppra. Continue enteral feeding. We'll consult surgery for evaluation for possible tracheostomy and PEG tube placement either later this week or next week. Patient is critically ill. Critical care time is over 30 minutes Time with Patient: Greater than 30
[2021-07-23 12:05] LABS: Glucose,Whole Blood 200 mg/dL (75-99)
[2021-07-23] MEDS: SODIUM CHLORIDE 0.9% 1,000 ML IV SCH (14:41)
--- NOTE | 2021-07-23 15:03 | P.GSCN ---
History of Present Illness Consult date: 07/23/21 History of present illness: CHIEF COMPLAINT: Shortness of breath HISTORY OF PRESENT ILLNESS: This is a 71-year-old female admitted to the hospital with acute hypoxic respiratory failure secondary to multifocal pneumonia and suspected lupus pneumonitis. Patient currently in the ICU intubated and on mechanical ventilation. Patient was intubated on 423. Patient had undergone weaning trials that have been unsuccessful. Surgical consult was placed for tracheostomy and PEG tube placement. PAST MEDICAL HISTORY: See list. PAST SURGICAL HISTORY: See list. MEDICATIONS: See list. ALLERGIES: See list. SOCIAL HISTORY: No illicit drug use. REVIEW OF SYSTEMS: CONSTITUTIONAL: Denies fever or chills. HEENT: Denies blurred vision, vision changes, or eye pain. Denies hemoptysis CARDIOVASCULAR: Denies chest pain or pressure. RESPIRATORY: No shortness of breath. GASTROINTESTINAL: See HPI for pertinent findings HEMATOLOGIC: Denies bleeding disorders. GENITOURINARY: Denies any blood in urine or increased urinary frequency. SKIN: Denies pruitis. Denies rash. PHYSICAL EXAM: VITAL SIGNS: Reviewed GENERAL: no acute distress. HEENT: No sclera icterus. Moist buccal mucosa. Head is atraumatic, normocephalic. No nasal drainage. ABDOMEN: Soft. Nondistended. NEUROLOGIC: Intubated and sedated LABORATORY DATA: WBC is 2111 9.3 platelet 152 INR is 1.3 Sodium is 146 potassium 3.4 BUN is 134 creatinine 2.35 Albumin 2.2 IMAGING: ASSESSMENT: 1. Acute hypoxic respiratory failure secondary to lupus pneumonitis and possible community acquired pneumonia 2. Severe protein calorie nutrition 3. Sepsis PLAN: -Patient scheduled for tracheostomy placement tomorrow with Dr. allen -Due to conflict during Endo schedule, PEG tube placement will be on 07/27/2021 -Hold tube feedings after midnight Thank you for this consultation Physician Bag Printer note has been reviewed by physician. Signing provider agrees with the documented findings, assessment, and plan of care. Past Medical History Past Medical History: COPD History of Any Multi-Drug Resistant Organisms: None Reported Past Surgical History: Cardiac Valve Replacement, Heart Catheterization, Pacemaker Past Anesthesia/Blood Transfusion Reactions: No Reported Reaction Type of Cardiac Device: Permanent Pacemaker, AICD Device Placement Date:: may 2021 Past Psychological History: No Psychological Hx Reported Smoking Status: Former smoker - Past Family History Mother Family Medical History: Myocardial Infarction ([place]) Father Family Medical History: Myocardial Infarction ([place]) Medications and Allergies Home Medications Medication Instructions Recorded Confirmed Type ALPRAZolam [Xanax] 1 mg PO TID PRN 07/09/21 07/09/21 History Beets Supplement 500mg 500 mg PO DAILY 07/09/21 07/09/21 History Cholecalciferol [Vitamin D3 (25 25 mcg PO DAILY 07/09/21 07/09/21 History Mcg = 1000 Iu)] Collagen + Biotin 1 cap PO DAILY 07/09/21 07/09/21 History Cyanocobalamin [Vitamin B-12] 500 mcg PO DAILY 07/09/21 07/09/21 History Ferrous Gluconate 324 mg PO DAILY 07/09/21 07/09/21 History Furosemide [Lasix] 40 mg PO DAILY 07/09/21 07/09/21 History HYDROcodone/APAP 10-325MG [[place] 1 tab PO QID PRN 07/09/21 07/09/21 History 10-325] Hydroxychloroquine Sulfate 200 mg PO DAILY 07/09/21 07/09/21 History [Plaquenil] Losartan [Cozaar] 50 mg PO DAILY 07/09/21 07/09/21 History Simvastatin [Zocor] 20 mg PO DAILY 07/09/21 07/09/21 History Spironolactone [Aldactone] 25 mg PO DAILY 07/09/21 07/09/21 History Torsemide [Demadex] 20 mg PO DAILY 07/09/21 07/09/21 History Warfarin [Coumadin] 2 mg PO DAILY 07/09/21 07/09/21 History Zolpidem [Ambien] 10 mg PO HS 07/09/21 07/09/21 History guaiFENesin-Coden 100-10MG/5ML 5 ml PO TID PRN 07/09/21 07/09/21 History [Robitussin AC] minoxidiL 1.25 mg PO DAILY 07/09/21 07/09/21 History Allergies Allergy/AdvReac Type Severity Reaction Status Date / Time SURGICAL TAPE Allergy BLISTERS Uncoded 07/09/21 16:05 Surgical - Exam Vital Signs Temp Pulse Resp BP Pulse Ox 98.3 F 71 20 88/42 98 07/09/21 12:13 07/09/21 12:13 07/09/21 12:13 07/09/21 12:13 07/09/21 12:13 Results - Labs 07/23/21 05:27 07/23/21 05:27 Abnormal Lab Results - Last 24 Hours (Table) 07/22/21 07/23/21 07/23/21 Range/Units 17:51 00:10 05:26 WBC (3.8-10.6) k/uL RBC (3.80-5.40) m/uL Hgb (11.4-16.0) gm/dL Hct (34.0-46.0) % RDW (11.5-15.5) % Neutrophils # (1.3-7.7) k/uL Lymphocytes # (1.0-4.8) k/uL PT (9.0-12.0) sec INR (<1.2) ABG pH (7.35-7.45) ABG pO2 (83-108) mmHg ABG Total CO2 (19-24) mmol/L Sodium (137-145) mmol/L Potassium (3.5-5.1) mmol/L Chloride (98-107) mmol/L BUN (7-17) mg/dL Creatinine (0.52-1.04) mg/dL Glucose (74-99) mg/dL POC Glucose (mg/dL) 163 H 179 H 176 H (75-99) mg/dL Calcium (8.4-10.2) mg/dL AST (14-36) U/L ALT (4-34) U/L Total Protein (6.3-8.2) g/dL Albumin (3.5-5.0) g/dL 07/23/21 07/23/21 07/23/21 Range/Units 05:27 05:27 05:27 WBC 21.0 H (3.8-10.6) k/uL RBC 3.34 L (3.80-5.40) m/uL Hgb 9.3 L (11.4-16.0) gm/dL Hct 30.0 L (34.0-46.0) % RDW 16.8 H (11.5-15.5) % Neutrophils # 20.2 H (1.3-7.7) k/uL Lymphocytes # 0.2 L (1.0-4.8) k/uL PT 13.7 H (9.0-12.0) sec INR 1.3 H (<1.2) ABG pH (7.35-7.45) ABG pO2 (83-108) mmHg ABG Total CO2 (19-24) mmol/L Sodium 146 H (137-145) mmol/L Potassium 3.4 L (3.5-5.1) mmol/L Chloride 109 H (98-107) mmol/L BUN 134 H* (7-17) mg/dL Creatinine 2.35 H (0.52-1.04) mg/dL Glucose 174 H (74-99) mg/dL POC Glucose (mg/dL) (75-99) mg/dL Calcium 7.8 L (8.4-10.2) mg/dL AST 55 H (14-36) U/L ALT 168 H (4-34) U/L Total Protein 5.1 L (6.3-8.2) g/dL Albumin 2.2 L (3.5-5.0) g/dL 07/23/21 07/23/21 Range/Units 05:37 12:03 WBC (3.8-10.6) k/uL RBC (3.80-5.40) m/uL Hgb (11.4-16.0) gm/dL Hct (34.0-46.0) % RDW (11.5-15.5) % Neutrophils # (1.3-7.7) k/uL Lymphocytes # (1.0-4.8) k/uL PT (9.0-12.0) sec INR (<1.2) ABG pH 7.46 H (7.35-7.45) ABG pO2 78 L (83-108) mmHg ABG Total CO2 26 H (19-24) mmol/L Sodium (137-145) mmol/L Potassium (3.5-5.1) mmol/L Chloride (98-107) mmol/L BUN (7-17) mg/dL Creatinine (0.52-1.04) mg/dL Glucose (74-99) mg/dL POC Glucose (mg/dL) 200 H (75-99) mg/dL Calcium (8.4-10.2) mg/dL AST (14-36) U/L ALT (4-34) U/L Total Protein (6.3-8.2) g/dL Albumin (3.5-5.0) g/dL Microbiology - Last 24 Hours (Table) 07/16/21 14:38 Blood Culture - Final Blood No Growth after 144 hours Diabetes panel 07/23/21 Range/Units 05:27 Sodium 146 H (137-145) mmol/L Potassium 3.4 L (3.5-5.1) mmol/L Chloride 109 H (98-107) mmol/L Carbon Dioxide 26 (22-30) mmol/L BUN 134 H* (7-17) mg/dL Creatinine 2.35 H (0.52-1.04) mg/dL Glucose 174 H (74-99) mg/dL Calcium 7.8 L (8.4-10.2) mg/dL AST 55 H (14-36) U/L ALT 168 H (4-34) U/L Alkaline Phosphatase 88 (38-126) U/L Total Protein 5.1 L (6.3-8.2) g/dL Albumin 2.2 L (3.5-5.0) g/dL Calcium panel 07/23/21 Range/Units 05:27 Calcium 7.8 L (8.4-10.2) mg/dL Albumin 2.2 L (3.5-5.0) g/dL Pituitary panel 07/23/21 Range/Units 05:27 Sodium 146 H (137-145) mmol/L Potassium 3.4 L (3.5-5.1) mmol/L Chloride 109 H (98-107) mmol/L Carbon Dioxide 26 (22-30) mmol/L BUN 134 H* (7-17) mg/dL Creatinine 2.35 H (0.52-1.04) mg/dL Glucose 174 H (74-99) mg/dL Calcium 7.8 L (8.4-10.2) mg/dL Adrenal panel 07/23/21 Range/Units 05:27 Sodium 146 H (137-145) mmol/L Potassium 3.4 L (3.5-5.1) mmol/L Chloride 109 H (98-107) mmol/L Carbon Dioxide 26 (22-30) mmol/L BUN 134 H* (7-17) mg/dL Creatinine 2.35 H (0.52-1.04) mg/dL Glucose 174 H (74-99) mg/dL Calcium 7.8 L (8.4-10.2) mg/dL Total Bilirubin 1.1 (0.2-1.3) mg/dL AST 55 H (14-36) U/L ALT 168 H (4-34) U/L Alkaline Phosphatase 88 (38-126) U/L Total Protein 5.1 L (6.3-8.2) g/dL Albumin 2.2 L (3.5-5.0) g/dL
[2021-07-23] MEDS ORDERED: IPRATROPIUM-ALBUTEROL 3 ML NEB INHALATION PRN (15:16)
--- NOTE | 2021-07-23 15:22 | PN ---
PROGRESS NOTE This patient's creatinine is down to 2.35 today with a BUN of 134, which is the lowest it has been. Sugar is in the mid 100s and 200s. She still remains in the ICU. She had a trial of weaning yesterday. She was not able to be extubated yesterday. She is on assist-control now, PEEP of 5, FiO2 of 30. ABGs reviewed. Enteral feedings. We are going to do a possible trach on her. They do not think she will be able to get off the vent on her own. May need PICC line placement. Chest x-ray continues to show significant infiltrate in the left lung, less infiltrate in the right lung. White count is 21, hemoglobin 9.3. Liver profile is improving. Creatinine is improving. Blood pressure 130/69, respiratory rate 20 to 30, temperature 97.7, pulse 76. Cardiovascular S1, S2. Abdomen is soft. Extremities with no edema. Neurologic: She is following commands, opens eyes. She smiles at times. ASSESSMENT: 1. Acute hypoxemic respiratory distress secondary to lupus pneumonitis. 2. Community-acquired pneumonia. 3. Lupus encephalitis. 4. Metabolic encephalopathy. 5. Septic shock. 6. Questionable hemorrhagic infarct has not change in 3 CT scans versus a hemorrhagic lesion, which was first suspected on the first reading. 7. Acute kidney injury is improving. 8. Acute shock liver is improving. 9. Chronic obstructive pulmonary disease is stable. 10.Hypertension, stable. 11.Coronary artery disease with pacemaker. 12. heart disease, stable. Continue to get her off the vent if possible versus a trach tube. Nutritional support. Solu-Medrol, antibiotics, bronchodilators. Accu-Cheks. Fluconazole, Keppra for seizures. Prognosis is critically ill, but she seems to be improving on a daily basis with her creatinine and liver enzymes and her neuro functioning. So that is a good sign. MMODL / IJN: [id number] /
[2021-07-23] MEDS ORDERED: ACETAMINOPHEN IV (For NPO) 1,000 MG in EMPTY BAG 1 BAG IVPB PRN (16:10)
[2021-07-23] MEDS: FLUCONAZOLE IN NACL,ISO-OSM 200 MG in SALINE 1 100ML.BAG IVPB SCH (17:56)
[2021-07-23 18:54] LABS: Glucose,Whole Blood 103 mg/dL (75-99)
--- NOTE | 2021-07-23 21:16 | P.PN ---
Subjective Progress Note Date: 07/23/21 Principal diagnosis: Pneumonia Patient is a 71-year-old female with a past medical history significant for COPD and recent admission to [facility] for pneumonia pr esented to hospital with increasing shortness of breath and cough with a CT suspicious for left lower lobe pneumonia. The patient is status post cystoscopy and left ureteral stent placement completed on 07/16/2021 On today's evaluation that is 07/23/2021, the patient remains to be afebrile , the patient is hemodynamically stable not requiring any pressor support the patient FiO2 is currently stable at 30 % and is undergoing CPAP trial, no purulent secretion through the ET has been reported by nursing staff, patient diarrhea has slowed down Per the nursing staff Objective - Vital Signs Vital signs: Vital Signs Temp 97.7 F 07/23/21 08:00 Pulse 84 07/23/21 11:00 Resp 21 07/23/21 11:00 BP 137/58 07/23/21 11:00 Pulse Ox 94 L 07/23/21 11:00 Intake & Output 07/22/21 07/23/21 07/23/21 18:59 06:59 18:59 Intake Total 1004 1304 635 Output Total 989 1355 525 Balance 15 -51 110 Weight 84.4 kg 82 kg Intake: IV 320 220 150 .9 kvo 120 120 50 Fluconazole in NaCl,Iso- 100 Osm 200 mg In Saline 1 100ml.bag @ 100 mls/hr IVPB Q24H [facility] Rx#: [id number] levETIRAcetam IV 500 mg 100 100 100 In Sodium Chloride 0.9% 100 ml @ 400 mls/hr IVPB Q12HR [facility] Rx#:[id number] Tube Feeding 684 684 285 Other 400 200 Output: Urine 985 1355 525 Stool 4 Other: Voiding Method Indwelling Catheter Indwelling Catheter Indwelling Catheter ABP, PAP, CO, CI - Last Documented Arterial Blood Pressure 96/94 - Exam GENERAL DESCRIPTION: An elderly female intubated on vent RESPIRATORY SYSTEM: Unlabored breathing , decreased breath sounds at bases HEART: S1 S2 regular rate and rhythm , ABDOMEN: Soft , no tenderness EXTREMITIES: No edema feet - Labs CBC & Chem 7: 07/23/21 05:27 07/23/21 15:02 Labs: Abnormal Lab Results - Last 24 Hours (Table) 0507/23/21 07/23/21 Range/Units 17:51 00:10 05:26 WBC (3.8-10.6) k/uL RBC (3.80-5.40) m/uL Hgb (11.4-16.0) gm/dL Hct (34.0-46.0) % RDW (11.5-15.5) % Neutrophils # (1.3-7.7) k/uL Lymphocytes # (1.0-4.8) k/uL PT (9.0-12.0) sec INR (<1.2) ABG pH (7.35-7.45) ABG pO2 (83-108) mmHg ABG Total CO2 (19-24) mmol/L Sodium (137-145) mmol/L Potassium (3.5-5.1) mmol/L Chloride (98-107) mmol/L BUN (7-17) mg/dL Creatinine (0.52-1.04) mg/dL Glucose (74-99) mg/dL POC Glucose (mg/dL) 163 H 179 H 176 H (75-99) mg/dL Calcium (8.4-10.2) mg/dL AST (14-36) U/L ALT (4-34) U/L Total Protein (6.3-8.2) g/dL Albumin (3.5-5.0) g/dL 07/23/21 07/23/21 07/23/21 Range/Units 05:27 05:27 05:27 WBC 21.0 H (3.8-10.6) k/uL RBC 3.34 L (3.80-5.40) m/uL Hgb 9.3 L (11.4-16.0) gm/dL Hct 30.0 L (34.0-46.0) % RDW 16.8 H (11.5-15.5) % Neutrophils # 20.2 H (1.3-7.7) k/uL Lymphocytes # 0.2 L (1.0-4.8) k/uL PT 13.7 H (9.0-12.0) sec INR 1.3 H (<1.2) ABG pH (7.35-7.45) ABG pO2 (83-108) mmHg ABG Total CO2 (19-24) mmol/L Sodium 146 H (137-145) mmol/L Potassium 3.4 L (3.5-5.1) mmol/L Chloride 109 H (98-107) mmol/L BUN 134 H* (7-17) mg/dL Creatinine 2.35 H (0.52-1.04) mg/dL Glucose 174 H (74-99) mg/dL POC Glucose (mg/dL) (75-99) mg/dL Calcium 7.8 L (8.4-10.2) mg/dL AST 55 H (14-36) U/L ALT 168 H (4-34) U/L Total Protein 5.1 L (6.3-8.2) g/dL Albumin 2.2 L (3.5-5.0) g/dL 07/23/21 07/23/21 Range/Units 05:37 12:03 WBC (3.8-10.6) k/uL RBC (3.80-5.40) m/uL Hgb (11.4-16.0) gm/dL Hct (34.0-46.0) % RDW (11.5-15.5) % Neutrophils # (1.3-7.7) k/uL Lymphocytes # (1.0-4.8) k/uL PT (9.0-12.0) sec INR (<1.2) ABG pH 7.46 H (7.35-7.45) ABG pO2 78 L (83-108) mmHg ABG Total CO2 26 H (19-24) mmol/L Sodium (137-145) mmol/L Potassium (3.5-5.1) mmol/L Chloride (98-107) mmol/L BUN (7-17) mg/dL Creatinine (0.52-1.04) mg/dL Glucose (74-99) mg/dL POC Glucose (mg/dL) 200 H (75-99) mg/dL Calcium (8.4-10.2) mg/dL AST (14-36) U/L ALT (4-34) U/L Total Protein (6.3-8.2) g/dL Albumin (3.5-5.0) g/dL Microbiology - Last 24 Hours (Table) 04/28/22 14:38 Blood Culture - Final Blood No Growth after 144 hours Assessment and Plan (1) Pneumonia Current Visit: Yes Status: Acute Code(s): J18.9 - PNEUMONIA, UNSPECIFIED ORGANISM SNOMED Code(s): 972487683 Plan: 1patient presented to hospital with acute respiratory failure with in this patient did have hypoxemia increasing shortness of breath and cough with evidence of left lower lobe pneumonia on the CT and recently admitted and treated at [facility] having intercourse for the gram-negative pathogen. 2patient did have worsening of respiratory status requiring intubation patient is status post bronchoscopy and lavage those cultures are growing Heidi 3patient did have worsening of the kidney function with evidence of left-sided hydronephrosis the patient is status post cystoscopy and left ureter stent placement completed 07/16/2021, 4-patient fever has resolved, however white count is slightly elevated more likely steroid effects and no significant worsening has been noticed 5patient has completed a 12 day course of Zosyn which should be enough for a nosocomial pneumonia and sputum was negative for any resistant pathogen, patient will be monitored closely off antibiotic therapy 6-diarrhea more likely antibiotic associated and has improved after discontinuation of the Zosyn the patient stool for C. 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
[2021-07-23 23:20] LABS: Glucose,Whole Blood 120 mg/dL (75-99)
--- NOTE | 2021-07-23 23:30 | P.PN ---
Subjective Progress Note Date: 07/23/21 07/23/2021: Patient is extubated today at 1:45 PM. She appears quite sick. She has had tilted up. She is looking at the blood pressure monitor up onto the left side. 07/22/2021: Patient laying in the bed. No changes compared to yesterday. 07/21/2021: Patient initially seen by Dr. Tremaine Mcguire. Subsequently seen by Dr. Yepez, who has signed off on the patient. Neurology was reconsulted for clearance for resuming anticoagulation. Patient had supratherapeutic INR, had developed small intracranial hemorrhage right parietal region. Coumadin was held, and still on hold. Patient was seen for a follow-up. Discussed with the nurse in detail. Patient is off sedation. She is much more alert and awake. She is following some commands. She still is generalized weak, all over. Patient is undergoing CPAP and may consider to be extubated in 1-2 days. Patient admits to having "no headache", by nodding head [id number]. SOME OF THE WORK-UP: Ammonia level <9 Creatning on initial presentation is 1.78-->4.16 AST: 23-->400-->522 ALT 9-->1800-->889 KELLY is positive Double strand DNA ab Indeterminate, complement C3: 20 and c4:2.0 C-ANCA and P-ANCA CT of the head was ordered by the ICU team and it's reported as left parietal area could reflect focal acute hemorrhagic infarct, I see more suspicious for hemorrhagic metastasis disease given the surrounding vasogenic edema. Correlate clinically. Correlation with old outside CT and/or MRI would be beneficial. I personally reviewed the CT of the head and the patient had a small focal right hemorrhage on the parietal. She had two repeated CT head at 8pm on 07/15/2021 and today around 9ish am and no change. EEG on 07/15/2021: This is an abnormal routine EEG. The background slowing is suggestive of severe encephalopathy. The triphasic wave are suggestive of likely toxic-metabolic etiology. Otherwise there is no focal slowing, epile ptiform discharge or seizure on the EEG. EEG on 07/16/2021: This is an abnormal routine EEG. The background slowing is suggestive of severe encephalopathy. The triphasic wave are suggestive of likel y toxic-metabolic etiology. Otherwise there is no focal slowing, epileptiform discharge or seizure on the EEG. Compared to the EEG from the prior day (07/15/2021), there is no change. Objective - Vital Signs Vital signs: Vital Signs Temp 97.8 F 07/23/21 16:00 Pulse 81 07/23/21 18:00 Resp 16 07/23/21 18:00 BP 145/76 07/23/21 18:00 Pulse Ox 98 07/23/21 18:00 Intake & Output 07/23/21 07/23/21 07/24/21 06:59 18:59 06:59 Intake Total 1304 1219 Output Total 1355 1275 Balance -51 -56 Weight 82 kg Intake: IV 220 220 .9 kvo 120 120 levETIRAcetam IV 500 mg 100 100 In Sodium Chloride 0.9% 100 ml @ 400 mls/hr IVPB Q12HR [facility] Rx#:[id number] Tube Feeding 684 399 Other 400 600 Output: Urine 1355 1275 Other: Voiding Method Indwelling Catheter Indwelling Catheter # Bowel Movements 1 ABP, PAP, CO, CI - Last Documented Arterial Blood Pressure 96/94 - Exam Patient is now extubated. Not on any sedation. Patient is opening her eyes to calling her name. Her head is somewhat tilted up and she is looking up to the left towards the monitor. Patient's mouth is very dry. She is trying to mu mble. Patient's pupils are equal, round and reacting. Visual contreras could not be tested. Lower cranial nerves could not be tested. Patient's strength is generalized very weak, slightly able to squeeze hands to about 3. Patient and wiggle her feet bilaterally. Appears generalized weak. Reflexes are 1+ in the right upper limb, 1 in the left upper limb. Plantars are flat. Tone is equal bilaterally. No seizure-like activity. Patient appears generalized weak. - Labs CBC & Chem 7: 07/23/21 05:27 07/23/21 15:02 Labs: Abnormal Lab Results - Last 24 Hours (Table) 07/23/21 07/23/21 07/23/21 Range/Units 00:10 05:26 05: WBC 21.0 H (3.8-10.6) k/uL RBC 3.34 L (3.80-5.40) m/uL Hgb 9.3 L (11.4-16.0) gm/dL Hct 30.0 L (34.0-46.0) % RDW 16.8 H (11.5-15.5) % Neutrophils # 20.2 H (1.3-7.7) k/uL Lymphocytes # 0.2 L (1.0-4.8) k/uL PT (9.0-12.0) sec INR (<1.2) ABG pH (7.35-7.45) ABG pO2 (83-108) mmHg ABG Total CO2 (19-24) mmol/L Sodium (137-145) mmol/L Potassium (3.5-5.1) mmol/L Chloride (98-107) mmol/L BUN (7-17) mg/dL Creatinine (0.52-1.04) mg/dL Glucose (74-99) mg/dL POC Glucose (mg/dL) 179 H 176 H (75-99) mg/dL Calcium (8.4-10.2) mg/dL AST (14-36) U/L ALT (4-34) U/L Total Protein (6.3-8.2) g/dL Albumin (3.5-5.0) g/dL 07/23/21 07/23/21 07/23/21 Range/Units 05:27 05:27 05:37 WBC (3.8-10.6) k/uL RBC (3.80-5.40) m/uL Hgb (11.4-16.0) gm/dL Hct (34.0-46.0) % RDW (11.5-15.5) % Neutrophils # (1.3-7.7) k/uL Lymphocytes # (1.0-4.8) k/uL PT 13.7 H (9.0-12.0) sec INR 1.3 H (<1.2) ABG pH 7.46 H (7.35-7.45) ABG pO2 78 L (83-108) mmHg ABG Total CO2 26 H (19-24) mmol/L Sodium 146 H (137-145) mmol/L Potassium 3.4 L (3.5-5.1) mmol/L Chloride 109 H (98-107) mmol/L BUN 134 H* (7-17) mg/dL Creatinine 2.35 H (0.52-1.04) mg/dL Glucose 174 H (74-99) mg/dL POC Glucose (mg/dL) (75-99) mg/dL Calcium 7.8 L (8.4-10.2) mg/dL AST 55 H (14-36) U/L ALT 168 H (4-34) U/L Total Protein 5.1 L (6.3-8.2) g/dL Albumin 2.2 L (3.5-5.0) g/dL 07/23/21 07/23/21 Range/Units 12:03 18:52 WBC (3.8-10.6) k/uL RBC (3.80-5.40) m/uL Hgb (11.4-16.0) gm/dL Hct (34.0-46.0) % RDW (11.5-15.5) % Neutrophils # (1.3-7.7) k/uL Lymphocytes # (1.0-4.8) k/uL PT (9.0-12.0) sec INR (<1.2) ABG pH (7.35-7.45) ABG pO2 (83-108) mmHg ABG Total CO2 (19-24) mmol/L Sodium (137-145) mmol/L Potassium (3.5-5.1) mmol/L Chloride (98-107) mmol/L BUN (7-17) mg/dL Creatinine (0.52-1.04) mg/dL Glucose (74-99) mg/dL POC Glucose (mg/dL) 200 H 103 H (75-99) mg/dL Calcium (8.4-10.2) mg/dL AST (14-36) U/L ALT (4-34) U/L Total Protein (6.3-8.2) g/dL Albumin (3.5-5.0) g/dL Microbiology - Last 24 Hours (Table) 07/16/21 14:38 Blood Culture - Final Blood No Growth after 144 hours Assessment and Plan Assessment: Acute small intraparenchymal hemorrhage over the right parietal region: Unsure cause. Possibly could be due to episode of supratherapeutic INR (was as high as 6.4, for which she received reversal on 07/13 and currently 1.5). Altered mental status due to multifactorial: Septic encephalopathy, metabolic encephalopathy. Septic shock with multisystem organ failure on pressor. Status post extubation. History of Lupus for years Acute kidney injury. Patient's BUN is getting worse although creatinine is improving. Nephrology on board. 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 Plan: Computed tomography scan of head 07/22/2019 revealed unchanged right posterior parietal subcortical white matter focus measuring 6 mm, likely representing smal l intraparenchymal hemorrhage. No additional evidence for new acute hemorrhage. Based upon continued presence of intracranial hemorrhage, would continue to hold off on anticoagulation. Repeat CT head in 7 days. If resolved, then may resume anticoagulation at that time. Recommend patient follow up with neurologist after the next CT head. We will discontinue Keppra from today as recommended by Dr. Tremaine Mcguire. The intraparenchymal hemorrhages small, likely not concerning for seizure focus. Continue to hold Coumadin and antiplatelet medication because of acute bleed. Other management as per IM, critical care and multiple other medical specialties.
[2021-07-24 05:28] LABS: Glucose,Whole Blood 140 mg/dL (75-99)
[2021-07-24] MEDS: INSULIN ASPART (NovoLOG) 100 UNIT/ML VIAL SQ SCH ×3 (05:36→19:15)
[2021-07-24] MEDS: methylPREDNISolone SOD SUCCI 125 MG/2 ML VIAL IV SCH ×2 (05:37→16:57)
[2021-07-24] MEDS: METOCLOPRAMIDE 5 MG/ML 2 ML VIAL IVP SCH ×3 (05:37→18:29)
[2021-07-24] MEDS: SODIUM CHLORIDE 0.9% 1,000 ML IV SCH (05:56)
[2021-07-24 07:40] LABS: Albumin 2.5 g/dL (3.5-5.0); Calcium 8.4 mg/dL (8.4-10.2); Potassium 4.1 mmol/L (3.5-5.1); Total Bilirubin 1.5 mg/dL (0.2-1.3); Total Protein 5.7 g/dL (6.3-8.2)
[2021-07-24 07:45] LABS: Anisocytosis Slight; Basophils # (A) 0.1 k/uL (0-0.2); Basophils % (A) 0 %; Eosinophils # (A) 0.1 k/uL (0-0.7); Eosinophils % (A) 0 %; HCT 33.7 % (34.0-46.0); HGB 10.2 gm/dL (11.4-16.0); Hypochromasia Slight; Lymphocytes # (A) 0.2 k/uL (1.0-4.8); Lymphocytes % (A) 1 %; MCH 27.9 pg (25.0-35.0); MCHC 30.3 g/dL (31.0-37.0); MCV 92.1 fL (80.0-100.0); Monocytes # (A) 0.4 k/uL (0-1.0); Monocytes % (A) 2 %; Neutrophils # (A) 23.8 k/uL (1.3-7.7); Neutrophils % (A) 97 %; Platelet Count 219 k/uL (150-450); RBC 3.66 m/uL (3.80-5.40); RDW 16.9 % (11.5-15.5); WBC 24.5 k/uL (3.8-10.6)
[2021-07-24] MEDS: SODIUM BICARBONATE TAB 650 MG TAB PO SCH ×2 (08:44→19:47)
[2021-07-24] MEDS: DEXTROSE 5% IN WATER 1,000 ML IV SCH ×2 (08:52→18:27)
[2021-07-24] MEDS: INSULIN DETEMIR (LEVEMIR) 100 UNIT/ML SYR SQ SCH (08:53)
--- NOTE | 2021-07-24 09:38 | XR ---
EXAMINATION TYPE: XR chest 1V portable DATE OF EXAM: 07/24/2021 COMPARISON: Chest x-ray 07/23/2021 HISTORY: Pneumonia TECHNIQUE: Single frontal view of the chest is obtained. FINDINGS: There is a generator in the left pectoral region, lead in the right ventricle. Central burt ous catheter is stable. Endotracheal tube and NG tube have been removed. Patient is again rotated. rspace disease shows the extensive involvement of the left lung. Heart is obscured. Post cardiac valv e replacement change is noted, post median sternotomy change. No evident pneumothorax. Difficult to e xclude effusion. Basilar density in the right obscures right hemidiaphragm. Deformity the right fifth and sixth ribs again noted. IMPRESSION: Correlate for pneumonia, interval extubation.
--- NOTE | 2021-07-24 10:27 | P.PN ---
Subjective Patient is seen in follow-up for acute kidney injury. Renal function improving. Nonoliguric. Extubated 07/23/2021. Awake. Sodium 149 today. Vital signs stable. General: On high flow cannula. LUNGS: Breath sounds decreased. HEART: Regular rate and rhythm. ABDOMEN: Soft, no distention. EXTREMITITES: Trace edema. Objective - Vital Signs Vital signs: Vital Signs Temp 97.1 F L 07/24/21 08:00 Pulse 82 07/24/21 10:00 Resp 21 07/24/21 10:00 BP 153/80 07/24/21 10:00 Pulse Ox 97 07/24/21 10:00 Intake & Output 07/23/21 07/24/21 07/24/21 18:59 06:59 18:59 Intake Total 1219 210 210 Output Total 1275 1060 275 Balance -56 -850 -65 Weight 81.8 kg 81.8 kg Intake: IV 220 210 210 .9 kvo 120 110 10 Dextrose 5% in Water 1, 200 000 ml @ 100 mls/hr IV . Q10H [facility] Rx#:[id number] levETIRAcetam IV 500 mg 100 100 In Sodium Chloride 0.9% 100 ml @ 400 mls/hr IVPB Q12HR [facility] Rx#:[id number] Tube Feeding 399 Other 600 Output: Urine 1275 1060 275 Other: Voiding Method Indwelling Catheter Indwelling Catheter # Bowel Movements 1 1 ABP, PAP, CO, CI - Last Documented Arterial Blood Pressure 96/94 - Labs CBC & Chem 7: 07/24/21 06:53 07/24/21 06:53 Labs: Abnormal Lab Results - Last 24 Hours (Table) 07/23/21 07/23/21 07/23/21 Range/Units 12:03 18:52 23:18 WBC (3.8-10.6) k/uL RBC (3.80-5.40) m/uL Hgb (11.4-16.0) gm/dL Hct (34.0-46.0) % MCHC (31.0-37.0) g/dL RDW (11.5-15.5) % Neutrophils # (1.3-7.7) k/uL Lymphocytes # (1.0-4.8) k/uL Sodium (137-145) mmol/L Chloride (98-107) mmol/L BUN (7-17) mg/dL Creatinine (0.52-1.04) mg/dL Glucose (74-99) mg/dL POC Glucose (mg/dL) 200 H 103 H 120 H (75-99) mg/dL Total Bilirubin (0.2-1.3) mg/dL AST (14-36) U/L ALT (4-34) U/L Total Protein (6.3-8.2) g/dL Albumin (3.5-5.0) g/dL 07/24/21 07/24/21 07/24/21 Range/Units 05:27 06:53 06:53 WBC 24.5 H (3.8-10.6) k/uL RBC 3.66 L (3.80-5.40) m/uL Hgb 10.2 L (11.4-16.0) gm/dL Hct 33.7 L (34.0-46.0) % MCHC 30.3 L (31.0-37.0) g/dL RDW 16.9 H (11.5-15.5) % Neutrophils # 23.8 H (1.3-7.7) k/uL Lymphocytes # 0.2 L (1.0-4.8) k/uL Sodium 149 H (137-145) mmol/L Chloride 115 H (98-107) mmol/L BUN 133 H* (7-17) mg/dL Creatinine 1.81 H (0.52-1.04) mg/dL Glucose 144 H (74-99) mg/dL POC Glucose (mg/dL) 140 H (75-99) mg/dL Total Bilirubin 1.5 H (0.2-1.3) mg/dL AST 57 H (14-36) U/L ALT 171 H (4-34) U/L Total Protein 5.7 L (6.3-8.2) g/dL Albumin 2.5 L (3.5-5.0) g/dL Assessment and Plan Plan: Assessment: 1. Acute kidney injury secondary to ATN secondary to septic shock. Creatinine was 1.78 at admission and peaked at 4.57 - 1.81 today. Nonoliguric. Unknown baseline renal function. Noted to be KELLY positive, complements low and double- stranded DNA antibody 8. Hepatitis and ANCA negative. anti-GBM negative. No monoclonality Need to rule out GN - patient has history of lupus - on steroids. Also component of obstructive uropathy - status post left ureteral stent placement this admission. With multi-organ failure as well as thrombocytopenia, there is concern for antiphospholipid syndrome. Elevated BUN due to acute kidney injury as well as steroids. 2. Septic shock secondary to pneumonia. Status post bronchoscopy. Off vasopressor support; on antibiotics. 3. Metabolic acidosis secondary to acute kidney injury and IV fluids. On oral bicarbonate. 4. Acute hypoxic respiratory failure secondary to pneumonia. Bronchial washings positive for Heidi. 5. Shock liver. Improved. 6. Hypokalemia from poor intake. Replace. Better. 7. Hypomagnesemia from diuresis and poor intake. Replaced. 8. Left-sided hydronephrosis. Urology following. Status post left ureteral stent placement 07/16/2021. 9. Hypernatremia from lack of oral water intake. 10. History of mitral valve repair. Plan: D5W started this morning. Repeat sodium level this evening. Wean FiO2. Avoid nephrotoxins. Continue to monitor renal function and urine output. Dose of steroids decreased 07/22/2021. Rheumatology following. Will need kidney biopsy once hemodynamically stable for definitive diagnosis/classification of lupus nephritis. Anti-cardiolipin antibody negative. PTT normal. No DVT noted on lower extremity Dopplers.
[2021-07-24] MEDS: IPRATROPIUM-ALBUTEROL 3 ML NEB INHALATION SCH ×3 (10:59→19:37)
--- NOTE | 2021-07-24 11:07 | P.PN ---
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 On today's evaluation, the patient is on no sedation. She is opening her eyes and she is following simple commands. She is profoundly weak and she is barely able to move her toes and her fingers in her upper extremities. She is blinking. She is opening her eyes. He is following simple commands. No seizure activity has been noted for now. The patient remains on a mechanical ventilator. On today's evaluation, she is an assist-control mode with a rate of 24 with a tidal volume of 400 and a PEEP of 6 with an FiO2 of 30%. The chest x-ray is still showing extensive consolidation of the left lung. Nevertheless, the patient continues to have stable oxygenation and a blood gas today shows a pH of 7.46 with a pCO2 of 35 and a pO2 of 87. The bronchoscopy and bronchial lavage and the second occasion showed Heidi. The patient remains on Diflucan. Meanwhile, there is concern for lupus pneumonitis and questionable encephalitis picture. The patient remains on high dose IV Solu Medrol 125 mg every 6 hours. This may have contributed to her improved mentation. Renal function continues to be impaired at stable. On today's blood work, sodium is at 147 with a potassium level of 3.8, BUN is at 120 with a creatinine of 4.3 and a serum bicarb of 21. Overall fluid balance over the past 24 hours is +2.5 L. The patient's LFTs are improving, AST 60, ALT is 319, and there is a downgoing trend on the LFTs. The white cell count of 15.7 with a hemoglobin of 8.4 and a platelet count of 108. Platelet counts are stable for now. The patient is on vital AF at the rate of 57 mL an hour which is currently at goal. Doppler of the lower extremity was done and the results were negative. The patient is on no anticoagulants for now. Also, antiphospholipid and anti-cardiolipin antibodies were sent and the results are still pending for now. Nephrology is on the case for now. Patient was reevaluated today on 07/20/21, remains in the ICU, intubated and mechanically ventilated. She is presently on assist control rate of 24, volume 400 FiO2 30% PEEP 5 ABG showed a pO2 of 76 pCO2 34 pH of 7.43. Hence no changes were made in her present ventilator settings. Patient is on IV fluid she was on D5W at 75 mL/h, now she is on 0.9 normal saline at 20 mL per hour. She is receiving enteral tube feeding, remains on relatively high-dose of steroids/Solu-Medrol for presumptive lupus encephalitis and lupus pneumonitis. Patient is not requiring any sedation, her chest x-ray continues to show multifocal pneumonia bilaterally left more so than right, patient is opening eyes, following very simple instructions, and this is a new finding implying improved mental status. However the patient is generally weak, and I don't believe she is ready for any weaning trials at this point. But we'll continue the same ventilatory support, we'll continue nutritional support, continue steroids and antibiotics empirically, although I am mostly suspecting lupus pneumonitis rather than bacterial pneumonia. WBC count today is 20.7 hemoglobin is 9 ABG as noted earlier. Renal functioning is poor with a BUN of 129 creatinine 3.93. Improving compared to the last few days. Patient remains on Zosyn, and she also remains on methylprednisolone 125 mg IV push every 6 hours. She is on insulin she is also on Diflucan. Reevaluated today on 07/23/2021, patient remains in the ICU, intubated and mechanically ventilated. Patient was initially intubated on 07/11, and yesterday she was given a trial of weaning with a pressure support of 12 and CPAP, however the patient had a very poor weaning parameters mostly a nif -12 only. Hence decided not to extubate the patient as she would likely have very weak cough, and will not be able to clear secretions on her own. She is now on assist control rate of 24th of 1 400 FiO2 30% PEEP of 5. ABG showed a pO2 of 78 pCO2 of 35 pH of 7.46, hence no ventilator settings changes were made. Patient is receiving enteral feeding vital AF at 57 mL per hour. Today I have a feeling that the patient will be very difficult to wean and extubate successfully, hence I'm recommending a surgical evaluation for possible tracheostomy, PEG tube placement, and she will also eventually need a PICC line placement. This will be addressed hopefully today. In the meantime I recommended that she goes back on pressure support of 12 and CPAP. And will continue to check her weaning para meters again today hopefully the patient would have a better negative inspiratory force. Chest x-ray continues to show significant infiltrate in the left lung less infiltrate in the right lung. WBC count is 21 hemoglobin 9.3. INR is 1.3. Asymptomatic metabolic profile is normal BUN is improving creatinine is improving down to 2.35. Liver profile is also improving. Reevaluated today on 07/24/2021, patient was extubated yesterday, and so far she seems to be tolerating the extubation rather well. She is however on airvo with FiO2 of 70% and flow of 50 L/m., Patient has O2 saturation in the high 90s hence we'll titrate the FiO2 down to 60% or possibly 50% and obtaining an O2 saturation of 93% or better. Patient is hemodynamically stable, not requiring any pressors. She does have a paced rhythm, she is awake, alert, oriented, follows simple instructions, however she has a very weak cough. Recommended incentive spirometry at bedside, patient is scheduled to have a PICC line placed today, continues to have a left IJ central line in place today. And has been present since the of last month. Her sodium is elevated, hence the patient is on D5W at 100 mL per hour. Speech therapy to evaluate the patient today and assess his swallow evaluation, if the patient fails may consider Lasix again nasogastric tube for enteral feeding. WBC count today is 24.5 hemoglobin is 10.2. Her sodium is 149. BUN is improving creatinine is significantly improved down to 1.81 today and the patient is having good urine output. Liver enzymes have significantly improved over the last 1 week. Patient remains on Solu- Medrol, and I cut down the dose to 60 mg IV push every 8 hours. She is now off antibiotics as she received full course of treatment for presumptive pneumonia. Objective - Vital Signs Vital signs: Vital Signs Temp 97.1 F L 07/24/21 08:00 Pulse 82 07/24/21 10:00 Resp 21 07/24/21 10:00 BP 153/80 07/24/21 10:00 Pulse Ox 97 07/24/21 10:00 Intake & Output 07/23/21 07/24/21 07/24/21 18:59 06:59 18:59 Intake Total 1219 210 310 Output Total 1275 1060 375 Balance -56 -850 -65 Weight 81.8 kg 81.8 kg Intake: IV 220 210 310 .9 kvo 120 110 10 Dextrose 5% in Water 1, 300 000 ml @ 100 mls/hr IV . Q10H [facility] Rx#:[id number] levETIRAcetam IV 500 mg 100 100 In Sodium Chloride 0.9% 100 ml @ 400 mls/hr IVPB Q12HR [facility] Rx#:[id number] Tube Feeding 399 Other 600 Output: Urine 1275 1060 375 Other: Voiding Method Indwelling Catheter Indwelling Catheter # Bowel Movements 1 1 ABP, PAP, CO, CI - Last Documented Arterial Blood Pressure 96/94 - Exam Physical Exam: Revealed a 71-year-old female in no distress, extubated, on Adderall. Head: Atraumatic, normocephalic. HEENT:[Neck is supple.] [No neck masses.] [No thyromegaly.] [No JVD.], EOMI, nonicteric., EOMI, nonicteric. Extremely dry mucous membranes. Chest: [Symmetrical chest expansion, crackles at the bases especially at the left side..] Cardiac Exam: [Normal S1 and S2, no S3 gallop, no murmur.] Patient has a paced rhythm. Abdomen: [Soft, nontender, no megaly, no rebound, no guarding, normal bowel sounds.] Extremities: [No clubbing, no edema, no cyanosis.] Neurological Exam: Awake, alert, follows simple instructions but generally weak. Psychiatric: Normal mood, affect and normal mental status examination Skin: No rashes. - Labs CBC & Chem 7: 07/24/21 06:53 07/24/21 06:53 Labs: Abnormal Lab Results - Last 24 Hours (Table) 07/23/21 07/23/21 07/23/21 Range/Units 12:03 18:52 23:18 WBC (3.8-10.6) k/uL RBC (3.80-5.40) m/uL Hgb (11.4-16.0) gm/dL Hct (34.0-46.0) % MCHC (31.0-37.0) g/dL RDW (11.5-15.5) % Neutrophils # (1.3-7.7) k/uL Lymphocytes # (1.0-4.8) k/uL Sodium (137-145) mmol/L Chloride (98-107) mmol/L BUN (7-17) mg/dL Creatinine (0.52-1.04) mg/dL Glucose (74-99) mg/dL POC Glucose (mg/dL) 200 H 103 H 120 H (75-99) mg/dL Total Bilirubin (0.2-1.3) mg/dL AST (14-36) U/L ALT (4-34) U/L Total Protein (6.3-8.2) g/dL Albumin (3.5-5.0) g/dL 07/24/21 07/24/21 07/24/21 Range/Units 05:27 06:53 06:53 WBC 24.5 H (3.8-10.6) k/uL RBC 3.66 L (3.80-5.40) m/uL Hgb 10.2 L (11.4-16.0) gm/dL Hct 33.7 L (34.0-46.0) % MCHC 30.3 L (31.0-37.0) g/dL RDW 16.9 H (11.5-15.5) % Neutrophils # 23.8 H (1.3-7.7) k/uL Lymphocytes # 0.2 L (1.0-4.8) k/uL Sodium 149 H (137-145) mmol/L Chloride 115 H (98-107) mmol/L BUN 133 H* (7-17) mg/dL Creatinine 1.81 H (0.52-1.04) mg/dL Glucose 144 H (74-99) mg/dL POC Glucose (mg/dL) 140 H (75-99) mg/dL Total Bilirubin 1.5 H (0.2-1.3) mg/dL AST 57 H (14-36) U/L ALT 171 H (4-34) U/L Total Protein 5.7 L (6.3-8.2) g/dL Albumin 2.5 L (3.5-5.0) g/dL Assessment and Plan Assessment: Impression: 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 Possible community-acquired pneumonia. Patient is now off antibiotics, but she is still receiving steroids the dose has been lowered down to 60 mg IV push every 8 hours. Septic shock with multisystem organ failure Acute lupus encephalitis. Acute metabolic encephalopathy. 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 Acute kidney injury, suspect acute tubular necrosis. Improving. Acute shock liver, resolved. Underlying COPD, presently inactive Benign essential hypertension. History of pacemaker implantation. Coronary arteriosclerosis and previous CABG Valvular heart disease and mitral valve replacement acute Coumadin toxicity, treated and recovered Thrombocytopenia secondary to sepsis, resolved, platelets are normal. Diarrhea, negative C. difficile colitis. Recommendation: Continue airvo and titrate FiO2 down as tolerated maintain O2 saturation above 93%. Continue nutritional support. Patient to have enteral feeding if she failed swallow evaluation today. Adjusted dose of Solu-Medrol, she is now on 60 mg IV push every 8 hours. Discontinue antibiotics, this was done yesterday by infectious disease. Patient was on Zosyn all along. Continue GI and DVT prophylaxis. Continue bronchodilators. Continue insulin , patient is on sliding scale. Continue fluconazole. Continue Keppra. Cancel surgical consultation for tracheostomy and PEG tube placement for now. Since the patient was extubated yesterday and so far she seems to be tolerating extubation well Remains critically ill. Critical care time is over 30 minutes Time with Patient: Greater than 30
[2021-07-24 11:15] LABS: Glucose,Whole Blood 173 mg/dL (75-99)
[2021-07-24] MEDS ORDERED: LIDOCAINE 1% PF 10 MG/ML (5 ML AMP) SQ ONE ×2 (13:51→14:05)
--- NOTE | 2021-07-24 14:53 | XR ---
EXAMINATION TYPE: XR chest 1V portable DATE OF EXAM: 07/24/2021 COMPARISON: Chest x-ray same dated earlier time HISTORY: PICC line placement TECHNIQUE: Single frontal view of the chest is obtained. FINDINGS: There is been interval placement of right-sided PICC line, distal tip is near the cavoatri al junction level. No other interval change. IMPRESSION: No evident complication status post PICC line placement.
--- NOTE | 2021-07-24 15:19 | IR ---
EXAMINATION TYPE: IR cvc insert >=5 years DATE OF EXAM: 07/24/2021 COMPARISON: NONE HISTORY: Pneumonia FINDINGS: Maximal barrier technique was utilized. Hand hygiene obtained with soap and water and alco hol-based hand rub. The skin overlying the right basilic vein was localized with ultrasound and noted to be compressible and patent by ultrasound. An ultrasound image was obtained and submitted on sil ent's chart. Sterile technique utilized with the ultrasound machine. The skin overlying was prepped a nd draped and Lidocaine used for local anesthesia. A skin sterling was made with a scalpel. Access was gained to the vein under direct ultrasound guidance with a 21-gauge needle and a 0.018 inch wire was advanced. Access site was dilated with a peel-away sheath and the catheter tailored to length. Cath eter advanced centrally and a post procedure chest x-ray verified placement with tip at the superior vena cava. Catheter was fixed to the skin and a sterile dressing placed. Hemostasis achieved and th e catheter was aspirated and flushed with sterile saline. The patient remained in stable condition. IMPRESSION: STATUS POST ULTRASOUND GUIDED PICC LINE PLACEMENT, READY FOR USE. THIS PROCEDURE WAS PER FORMED BY THE UNDERSIGNED.
--- NOTE | 2021-07-24 15:29 | P.PN ---
Subjective Progress Note Date: 07/24/21 Principal diagnosis: Pneumonia Patient is a 71-year-old female with a past medical history significant for COPD and recent admission to [facility] for pneumonia pr esented to hospital with increasing shortness of breath and cough with a CT suspicious for left lower lobe pneumonia. The patient is status post cystoscopy and left ureteral stent placement completed on 07/16/2021 On today's evaluation that is 07/24/2021, the patient continues to be afebrile , the patient is hemodynamically stable not requiring any pressor support the patient has been extubated currently breathing comfortably on high flow nasal canal oxygen, is slightly lethargic but denies any vomiting no abdominal pain and no diarrhea has been reported Objective - Vital Signs Vital signs: Vital Signs Temp 97.1 F L 07/24/21 08:00 Pulse 76 07/24/21 12:00 Resp 17 07/24/21 12:00 BP 159/78 07/24/21 12:00 Pulse Ox 96 07/24/21 12:00 Intake & Output 07/23/21 07/24/21 07/24/21 18:59 06:59 18:59 Intake Total 1219 210 410 Output Total 1275 1060 475 Balance -56 -850 -65 Weight 81.8 kg 81.8 kg Intake: IV 220 210 410 .9 kvo 120 110 10 Dextrose 5% in Water 1, 400 000 ml @ 100 mls/hr IV . Q10H [facility] Rx#:[id number] levETIRAcetam IV 500 mg 100 100 In Sodium Chloride 0.9% 100 ml @ 400 mls/hr IVPB Q12HR [facility] Rx#:[id number] Tube Feeding 399 Other 600 Output: Urine 1275 1060 475 Other: Voiding Method Indwelling Catheter Indwelling Catheter Indwelling Catheter # Bowel Movements 1 1 ABP, PAP, CO, CI - Last Documented Arterial Blood Pressure 96/94 - Exam GENERAL DESCRIPTION: An elderly female lying in bed in no distress RESPIRATORY SYSTEM: Unlabored breathing , decreased breath sounds at bases HEART: S1 S2 regular rate and rhythm , ABDOMEN: Soft , no tenderness EXTREMITIES: No edema feet - Labs CBC & Chem 7: 07/24/21 06:53 07/24/21 06:53 Labs: Abnormal Lab Results - Last 24 Hours (Table) 07/23/21 07/23/21 07/24/21 Range/Units 18:52 23:18 05:27 WBC (3.8-10.6) k/uL RBC (3.80-5.40) m/uL Hgb (11.4-16.0) gm/dL Hct (34.0-46.0) % MCHC (31.0-37.0) g/dL RDW (11.5-15.5) % Neutrophils # (1.3-7.7) k/uL Lymphocytes # (1.0-4.8) k/uL Sodium (137-145) mmol/L Chloride (98-107) mmol/L BUN (7-17) mg/dL Creatinine (0.52-1.04) mg/dL Glucose (74-99) mg/dL POC Glucose (mg/dL) 103 H 120 H 140 H (75-99) mg/dL Total Bilirubin (0.2-1.3) mg/dL AST (14-36) U/L ALT (4-34) U/L Total Protein (6.3-8.2) g/dL Albumin (3.5-5.0) g/dL 07/24/21 07/24/21 07/24/21 Range/Units 06:53 06:53 11:13 WBC 24.5 H (3.8-10.6) k/uL RBC 3.66 L (3.80-5.40) m/uL Hgb 10.2 L (11.4-16.0) gm/dL Hct 33.7 L (34.0-46.0) % MCHC 30.3 L (31.0-37.0) g/dL RDW 16.9 H (11.5-15.5) % Neutrophils # 23.8 H (1.3-7.7) k/uL Lymphocytes # 0.2 L (1.0-4.8) k/uL Sodium 149 H (137-145) mmol/L Chloride 115 H (98-107) mmol/L BUN 133 H* (7-17) mg/dL Creatinine 1.81 H (0.52-1.04) mg/dL Glucose 144 H (74-99) mg/dL POC Glucose (mg/dL) 173 H (75-99) mg/dL Total Bilirubin 1.5 H (0.2-1.3) mg/dL AST 57 H (14-36) U/L ALT 171 H (4-34) U/L Total Protein 5.7 L (6.3-8.2) g/dL Albumin 2.5 L (3.5-5.0) g/dL Assessment and Plan (1) Pneumonia Current Visit: Yes Status: Acute Code(s): J18.9 - PNEUMONIA, UNSPECIFIED ORGANISM SNOMED Code(s): 892748164 Plan: 1patient presented to hospital with acute respiratory failure with in this patient did have hypoxemia increasing shortness of breath and cough with evidence of left lower lobe pneumonia on the CT and recently admitted and treated at [facility] and concerning for a gram-negative pneumonia sputum and bronchial culture were negative and the patient has completed a course of Zosyn. 2patient with elevated white count more likely steroid effect and a possible component of oropharyngeal candidiasis for which the patient is currently covered with the Diflucan Time with Patient: Less than 30
--- NOTE | 2021-07-24 15:42 | P.PN ---
Subjective Progress Note Date: 07/24/21 CHIEF COMPLAINT: Respiratory failure HISTORY OF PRESENT ILLNESS: Patient remains in ICU. She was able to be extubated. Tracheostomy placement was canceled today. Patient failed her swallowing eval for today. They are trying to place an NG tube to restart tube feedings. She is currently scheduled for PEG tube placement on Tuesday. Afebrile WBC is 24.5, 10.2 platelets are 219 sodium is 149 potassium is 4.1 BUN 133 creatinine is 1.81 AST 57 ALT 171 total bili 1.5 PHYSICAL EXAM: VITAL SIGNS: Reviewed. GENERAL: Well-developed in no acute distress. HEENT: No sclera icterus. Extraocular movements grossly intact. Moist buccal mucosa. Head is atraumatic, normocephalic. ABDOMEN: Soft. Nondistended. Nontender. ASSESSMENT: 1. Acute hypoxic respiratory failure secondary to lupus pneumonitis and possible community acquired pneumonia 2. Severe protein calorie malnutrition 3. Sepsis PLAN: -Patient tentatively scheduled for PEG tube placement on 07/27/[address] Singleton -Hold to feedings after midnight on Tuesday -Continue supportive care -Continue ICU management Physician Logging [employer]ractor [employer] note has been reviewed by physician. Signing provider agrees with the documented findings, assessment, and plan of care. Objective - Vital Signs Vital signs: Vital Signs Temp 97.1 F L 07/24/21 08:00 Pulse 79 07/24/21 13:00 Resp 16 07/24/21 13:00 BP 158/77 07/24/21 13:00 Pulse Ox 96 07/24/21 13:00 Intake & Output 07/23/21 07/24/21 07/24/21 18:59 06:59 18:59 Intake Total 1219 210 810 Output Total 1275 1060 875 Balance -56 -850 -65 Weight 81.8 kg 81.8 kg Intake: IV 220 210 810 .9 kvo 120 110 10 Dextrose 5% in Water 1, 800 000 ml @ 100 mls/hr IV . Q10H [facility] Rx#:[id number] levETIRAcetam IV 500 mg 100 100 In Sodium Chloride 0.9% 100 ml @ 400 mls/hr IVPB Q12HR [facility] Rx#:[id number] Tube Feeding 399 Other 600 Output: Urine 1275 1060 875 Other: Voiding Method Indwelling Catheter Indwelling Catheter Indwelling Catheter # Bowel Movements 1 1 ABP, PAP, CO, CI - Last Documented Arterial Blood Pressure 96/94 - Labs CBC & Chem 7: 07/24/21 06:53 07/24/21 06:53 Labs: Abnormal Lab Results - Last 24 Hours (Table) 07/23/21 07/23/21 07/24/21 Range/Units 18:52 23:18 05:27 WBC (3.8-10.6) k/uL RBC (3.80-5.40) m/uL Hgb (11.4-16.0) gm/dL Hct (34.0-46.0) % MCHC (31.0-37.0) g/dL RDW (11.5-15.5) % Neutrophils # (1.3-7.7) k/uL Lymphocytes # (1.0-4.8) k/uL Sodium (137-145) mmol/L Chloride (98-107) mmol/L BUN (7-17) mg/dL Creatinine (0.52-1.04) mg/dL Glucose (74-99) mg/dL POC Glucose (mg/dL) 103 H 120 H 140 H (75-99) mg/dL Total Bilirubin (0.2-1.3) mg/dL AST (14-36) U/L ALT (4-34) U/L Total Protein (6.3-8.2) g/dL Albumin (3.5-5.0) g/dL 07/24/21 07/24/21 07/24/21 Range/Units 06:53 06:53 11:13 WBC 24.5 H (3.8-10.6) k/uL RBC 3.66 L (3.80-5.40) m/uL Hgb 10.2 L (11.4-16.0) gm/dL Hct 33.7 L (34.0-46.0) % MCHC 30.3 L (31.0-37.0) g/dL RDW 16.9 H (11.5-15.5) % Neutrophils # 23.8 H (1.3-7.7) k/uL Lymphocytes # 0.2 L (1.0-4.8) k/uL Sodium 149 H (137-145) mmol/L Chloride 115 H (98-107) mmol/L BUN 133 H* (7-17) mg/dL Creatinine 1.81 H (0.52-1.04) mg/dL Glucose 144 H (74-99) mg/dL POC Glucose (mg/dL) 173 H (75-99) mg/dL Total Bilirubin 1.5 H (0.2-1.3) mg/dL AST 57 H (14-36) U/L ALT 171 H (4-34) U/L Total Protein 5.7 L (6.3-8.2) g/dL Albumin 2.5 L (3.5-5.0) g/dL
--- NOTE | 2021-07-24 17:40 | P.PN ---
Progress Note - Text Progress Note Date: 07/24/21 Acute hypoxic respiratory failure secondary to multifocal pneumonia, suspect lupus pneumonitis Hospital course: I'm rounding for Dr. Sampson Person. July 24: ICU: Patient on irritable. At 58% and 50 L nasal flow. Artery today patient failed a swallow test. Plan is to put the patient on NG tube for feeding. Also awaiting a PICC line. Does follow simple commands. Weakness extremities. Getting IV fluids. Active Medications Acetaminophen (Acetaminophen Tab 325 Mg Tab) 650 mg PO Q4HR PRN PRN Reason: Fever and/ or Pain Last Admin: 07/12/21 00:02 Dose: 650 mg Documented by: Albuterol/Ipratropium (Ipratropium-Albuterol 3 Ml Neb) 3 ml INHALATION RT-QID [facility] Last Admin: 07/24/21 15:42 Dose: 3 ml Documented by: Sodium Chloride (Saline 0.9%) 1,000 mls @ 5 mls/hr IV .Q24H [facility] Last Admin: 07/24/21 05:56 Dose: 5 mls/hr Documented by: Fluconazole/Sodium Chloride (200 mg/ IV Solution) 100 mls @ 100 mls/hr IVPB Q24H [facility]; Protocol Last Admin: 07/23/21 17:56 Dose: 100 mls/hr Documented by: Dextrose/Water (Dextrose 5%-Water Iv Soln) 1,000 mls @ 100 mls/hr IV .Q10H [facility] Last Admin: 07/24/21 08:52 Dose: 100 mls/hr Documented by: Insulin Aspart (Insulin Aspart (Novolog) 100 Unit/Ml Vial) 0 unit SQ Q6H [facility]; Protocol Last Admin: 07/24/21 12:16 Dose: 2 unit Documented by: Insulin Detemir (Insulin Detemir (Levemir) 100 Unit/Ml Syr) 14 unit SQ DAILY@0700 [facility] Last Admin: 07/24/21 08:53 Dose: Not Given Documented by: Methylprednisolone Sodium Succinate (Methylprednisolone Sod Succi 125 Mg/2 Ml Vial) 60 mg IV Q8HR [facility] Last Admin: 07/24/21 16:57 Dose: 60 mg Documented by: Metoclopramide HCl (Metoclopramide 5 Mg/Ml 2 Ml Vial) 10 mg IVP Q6HR [facility] Last Admin: 07/24/21 16:56 Dose: Not Given Documented by: Miscellaneous Information (Pneumonia Protocol Utilized 1 Each [facility]) 1 each PO ONCE PRN PRN Reason: Per Protocol Naloxone HCl (Naloxone 0.4 Mg/Ml 1 Ml Vial) 0.2 mg IV Q2M PRN PRN Reason: Opioid Reversal Sodium Bicarbonate (Sodium Bicarbonate Tab 650 Mg Tab) 650 mg PO BID [facility] Last Admin: 07/24/21 08:44 Dose: Not Given Documented by: Sodium Chloride (Sodium Chloride 0.9% Flush 10 Ml Syringe) 10 ml IV Q4HR PRN PRN Reason: PICC Line Sodium Chloride (Sodium Chloride 0.9% Flush 10 Ml Syringe) 10 ml IV WEEKLY [facility] Sodium Chloride (Sodium Chloride 0.9% Flush 10 Ml Syringe) 20 ml IV Q4HR PRN PRN Reason: PICC Line On examination: VITAL SIGNS: 97.1, 76, 18, 153/73, 96% on Airvo GENERAL APPEARANCE: Propped up in bed, tired HEENT: Normal external appearance of nose and ear. Oral cavity dry EYES: Pupils equal. Conjunctiva normal. NECK: JVD unable to assess. Mass not palpable. RESPIRATORY: Respiratory effort increased. Decreased breath sounds CARDIOVASCULAR: First and second sounds normal. Some edema. ABDOMEN: Soft. Liver and spleen not palpable. No tenderness. No mass palpable. PSYCHIATRY: Not really able to answer questions NEUROLOGICAL: Weakness in all limbs. INVESTIGATIONS, reviewed in the clinical context: White count 24.5 hemoglobin 10.2 platelets 219 sodium 149 potassium 4.1 BUN 133 creatinine 1.81 AST 57 ALT 171 Assessment and plan: -Acute hypoxic respiratory failure secondary to pneumonia. Patient extubated on July 23. Airvo -Gram-negative pneumonia suspected. Completed course of Zosyn on July 23. -Septic shock with multisystem organ failure: Better Patient's off pressor support -Oropharyngeal candidiasis Diflucan -Acute septic metabolic encephalopathy, multifactorial. -Acute hemorrhagic infarct involving the right parietal lobe 5 mm in size. Exact cause unclear. INR was reversed. Being followed by neurology. -Acute kidney injury, acute tubular necrosis from septic shock.: Nonoliguric Follow with nephrology - Metabolic acidosis secondary to acute kidney injury On bicarbonate supplement -Acute shock liver, improved -Left-sided hydronephrosis, status post left ureteral stent on 07/16/2021 Follow with urology -COPD, presently inactive -Dysphagia/aspiration. Patient failed swallow evaluation on June 24. NG tube for feeding. -Benign essential hypertension. Currently off antihypertensive -History of pacemaker implantation. -CAD previous CABG -Valvular heart disease and mitral valve replacement acute Coumadin toxicity, treated and recovered -Thrombocytopenia secondary to sepsis, resolved, platelets are normal.: -Antibiotic associated Diarrhea, negative C. difficile colitis. Patient of antibiotics. IV Solu-Medrol 60 mg every 8. Diflucan. Insulin. Follow Accu-Cheks. Failed swallow study today. NG tube for feeding. Prognosis guarded.
[2021-07-24 18:36] LABS: Glucose,Whole Blood 204 mg/dL (75-99)
[2021-07-24] MEDS: FLUCONAZOLE IN NACL,ISO-OSM 200 MG in SALINE 1 100ML.BAG IVPB SCH (18:36)
[2021-07-25 01:58] LABS: Glucose,Whole Blood 212 mg/dL (75-99)
[2021-07-25] MEDS: METOCLOPRAMIDE 5 MG/ML 2 ML VIAL IVP SCH ×4 (02:00→17:58)
[2021-07-25] MEDS: methylPREDNISolone SOD SUCCI 125 MG/2 ML VIAL IV SCH ×3 (02:00→17:00)
[2021-07-25] MEDS: INSULIN ASPART (NovoLOG) 100 UNIT/ML VIAL SQ SCH ×4 (02:01→17:58)
[2021-07-25] MEDS: DEXTROSE 5% IN WATER 1,000 ML IV SCH ×2 (04:11→12:24)
[2021-07-25 05:56] LABS: Glucose,Whole Blood 200 mg/dL (75-99)
[2021-07-25] MEDS: INSULIN DETEMIR (LEVEMIR) 100 UNIT/ML SYR SQ SCH (06:04)
--- NOTE | 2021-07-25 06:45 | XR ---
EXAMINATION TYPE: XR chest 1V portable DATE OF EXAM: 07/25/2021 COMPARISON: 07/24/2021 HISTORY: PICC line placement TECHNIQUE: Single frontal view of the chest is obtained. FINDINGS: There has been interval retraction of the right PICC line with the tip in the SVC/RA junct ion. There is been no change in cardiac pacemaker. There is a prosthetic heart valve. There is a small right effusion and a large left effusion. No change in the partially consolidative o pacity noted in the left midlung.. No change in marked pulmonary vascular congestion. There is no pneumothorax. The osseous structures are intact. IMPRESSION: 1. No change in the acute cardiopulmonary disease as described above. 2. Retraction of the right arm PICC line with the tip now in the SVC/R junction.
--- NOTE | 2021-07-25 07:02 | P.PN ---
Subjective Progress Note Date: 07/24/21 07/24/2021: Patient's daughter was present today. Patient currently on Airvo. Patient has failed swallow. The nurses attempted NG tube multiple times, did not work. Patient possibly will be requiring TPN. PICC line has been placed. No seizures reported. 07/23/2021: Patient is extubated today at 1:45 PM. She appears quite sick. She has had tilted up. She is looking at the blood pressure monitor up onto the left side. 07/22/2021: Patient laying in the bed. No changes compared to yesterday. 07/21/2021: Patient initially seen by Dr. Tremaine Mcguire. Subsequently seen by Dr. Yepez, who has signed off on the patient. Neurology was reconsulted for clearance for resuming anticoagulation. Patient had supratherapeutic INR, had developed small intracranial hemorrhage right parietal region. Coumadin was held, and still on hold. Patient was seen for a follow-up. Discussed with the nurse in detail. Patient is off sedation. She is much more alert and awake. She is following some commands. She still is generalized weak, all over. Patient is undergoing CPAP and may consider to be extubated in 1-2 days. Patient admits to having "no headache", by nodding head [id number]. SOME OF THE WORK-UP: Ammonia level <9 Creatning on initial presentation is 1.78-->4.16 AST: 23-->400-->522 ALT 9-->1800-->889 KELLY is positive Double strand DNA ab Indeterminate, complement C3: 20 and c4:2.0 C-ANCA and P-ANCA CT of the head was ordered by the ICU team and it's reported as left parietal area could reflect focal acute hemorrhagic infarct, I see more suspicious for hemorrhagic metastasis disease given the surrounding vasogenic edema. Correlate clinically. Correlation with old outside CT and/or MRI would be beneficial. I personally reviewed the CT of the head and the patient had a small focal right hemorrhage on the parietal. She had two repeated CT head at 8pm on 07/15/2021 and today around 9ish am and no change. EEG on 07/15/2021: This is an abnormal routine EEG. The background slowing is suggestive of severe encephalopathy. The triphasic wave are suggestive of likely toxic-metabolic etiology. Otherwise there is no focal slowing, epileptiform discharge or seizure on the EEG. EEG on 07/16/2021: This is an abnormal routine EEG. The background slowing is suggestive of severe encephalopathy. The triphasic wave are suggestive of likely toxic-metabolic etiology. Otherwise there is no focal slowing, epileptiform discharge or seizure on the EEG. Compared to the EEG from the prior day (07/15/2021), there is no change. Objective - Vital Signs Vital signs: Vital Signs Temp 97.7 F 07/24/21 16:00 Pulse 81 07/24/21 18:00 Resp 17 07/24/21 18:00 BP 169/84 07/24/21 18:00 Pulse Ox 97 07/24/21 18:00 Intake & Output 07/23/21 07/24/21 07/24/21 18:59 06:59 18:59 Intake Total 7160 496 3775 Output Total 1275 1060 1165 Balance -56 -850 -55 Weight 81.8 kg 81.8 kg Intake: IV 794 303 7798 .9 kvo 120 110 10 Dextrose 5% in Water 1, 1100 000 ml @ 100 mls/hr IV . Q10H [facility] Rx#:[id number] levETIRAcetam IV 500 mg 100 100 In Sodium Chloride 0.9% 100 ml @ 400 mls/hr IVPB Q12HR [facility] Rx#:[id number] Tube Feeding 399 Other 600 Output: Urine 1275 1060 1165 Other: Voiding Method Indwelling Catheter Indwelling Catheter Indwelling Catheter # Bowel Movements 1 1 ABP, PAP, CO, CI - Last Documented Arterial Blood Pressure 96/94 - Exam Patient is not on any sedation. Patient is opening her eyes to calling her name. Patient apparently nodding at times. Still encephalopathic, generalized weak. Patient's pupils are equal, round and reacting. Visual contreras could not be tested. Lower cranial nerves could not be tested. Patient's strength is generalized very weak, slightly able to squeeze hands to about 3-. Patient can wiggle her feet bilaterally. Appears generalized weak. Reflexes are 1+ in the right upper limb, 1 in the left upper limb. Plantars are flat. Tone is equal bilaterally. No seizure-like activity. Patient appears generalized weak. - Labs CBC & Chem 7: 07/24/21 06:53 07/24/21 16:50 Labs: Abnormal Lab Results - Last 24 Hours (Table) 07/23/21 07/23/21 07/24/21 Range/Units 18:52 23:18 05:27 WBC (3.8-10.6) k/uL RBC (3.80-5.40) m/uL Hgb (11.4-16.0) gm/dL Hct (34.0-46.0) % MCHC (31.0-37.0) g/dL RDW (11.5-15.5) % Neutrophils # (1.3-7.7) k/uL Lymphocytes # (1.0-4.8) k/uL Sodium (137-145) mmol/L Chloride (98-107) mmol/L BUN (7-17) mg/dL Creatinine (0.52-1.04) mg/dL Glucose (74-99) mg/dL POC Glucose (mg/dL) 103 H 120 H 140 H (75-99) mg/dL Total Bilirubin (0.2-1.3) mg/dL AST (14-36) U/L ALT (4-34) U/L Total Protein (6.3-8.2) g/dL Albumin (3.5-5.0) g/dL 07/24/21 07/24/21 07/24/21 Range/Units 06:53 06:53 11:13 WBC 24.5 H (3.8-10.6) k/uL RBC 3.66 L (3.80-5.40) m/uL Hgb 10.2 L (11.4-16.0) gm/dL Hct 33.7 L (34.0-46.0) % MCHC 30.3 L (31.0-37.0) g/dL RDW 16.9 H (11.5-15.5) % Neutrophils # 23.8 H (1.3-7.7) k/uL Lymphocytes # 0.2 L (1.0-4.8) k/uL Sodium 149 H (137-145) mmol/L Chloride 115 H (98-107) mmol/L BUN 133 H* (7-17) mg/dL Creatinine 1.81 H (0.52-1.04) mg/dL Glucose 144 H (74-99) mg/dL POC Glucose (mg/dL) 173 H (75-99) mg/dL Total Bilirubin 1.5 H (0.2-1.3) mg/dL AST 57 H (14-36) U/L ALT 171 H (4-34) U/L Total Protein 5.7 L (6.3-8.2) g/dL Albumin 2.5 L (3.5-5.0) g/dL 07/24/21 07/24/21 Range/Units 16:50 18:35 WBC (3.8-10.6) k/uL RBC (3.80-5.40) m/uL Hgb (11.4-16.0) gm/dL Hct (34.0-46.0) % MCHC (31.0-37.0) g/dL RDW (11.5-15.5) % Neutrophils # (1.3-7.7) k/uL Lymphocytes # (1.0-4.8) k/uL Sodium 147 H (137-145) mmol/L Chloride (98-107) mmol/L BUN (7-17) mg/dL Creatinine (0.52-1.04) mg/dL Glucose (74-99) mg/dL POC Glucose (mg/dL) 204 H (75-99) mg/dL Total Bilirubin (0.2-1.3) mg/dL AST (14-36) U/L ALT (4-34) U/L Total Protein (6.3-8.2) g/dL Albumin (3.5-5.0) g/dL Assessment and Plan Assessment: Acute small intraparenchymal hemorrhage over the right parietal region: Unsure cause. Possibly could be due to episode of supratherapeutic INR (was as high as 6.4, for which she received reversal on 07/13 and currently 1.5). Altered mental status, likely due to toxic metabolic encephalopathy, etiology multifactorial as mentioned below. Septic shock with multisystem organ failure. Patient is afebrile, but the white cells is still up 24.5 (likely due to steroids) Status post extubation 07/23/2021. History of Lupus for years Acute kidney injury, secondary to ATN. Patient's BUN is getting worse although creatinine is improving. Nephrology on board. Left-sided hydronephrosis, status post left ureteral stent placement 07/16/2021. Urology is following. Acute hypoxic respiratory failure due to left lung pneumonia Oropharyngeal Candidiasis, on Diflucan. Acute shock liver--trending down Electrolyte abnormality: Hypernatremia sodium 149 today. 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 Plan: Computed tomography scan of head 07/21/2021 revealed unchanged right posterior parietal subcortical white matter focus measuring 6 mm, likely representing small intraparenchymal hemorrhage. No additional evidence for new acute hemor rhage. I personally reviewed computed tomography scan of the head and agree with the findings. Based upon continued presence of intracranial hemorrhage, would continue to hold off on anticoagulation. Repeat CT head in 7 days (07/28/2021). If resolved, may start anticoagulation. However if the hemorrhage remains unchanged, anticoagulation could still be started cautiously. Discussed with patient's daughter in detail. Informed her of the risks and benefits of anticoagulation at this time. Risks are at both end. She expressed understanding. We will discontinue Keppra from today as recommended by Dr. Tremaine Mcguire. The intraparenchymal hemorrhages small, likely not concerning for seizure focus. Continue to hold Coumadin and antiplatelet medication because of acute bleed. Other management as per IM, critical care and multiple other medical specialties.
--- NOTE | 2021-07-25 07:05 | P.PN ---
Progress Note - Text Progress Note Date: 07/25/21 Spoke to patient's nurse on the phone. He mentions that patient has started responding better. She was able to tell that she is in the hospital, her name and the current year. She still is generalized weak in the arms and legs. Some movement of the shoulders noted. Patient's need for FiO2 is decreasing. Currently on FiO2 of 55% with Airvo. Overall she is improving. Continue present treatment, and plan as mentioned in the note from 07/24/2021.
[2021-07-25] MEDS: IPRATROPIUM-ALBUTEROL 3 ML NEB INHALATION SCH ×4 (07:32→20:11)
[2021-07-25] MEDS: SODIUM BICARBONATE TAB 650 MG TAB PO SCH ×2 (08:12→19:29)
[2021-07-25 08:26] LABS: Calcium 8.2 mg/dL (8.4-10.2); Total Bilirubin 1.6 mg/dL (0.2-1.3)
[2021-07-25 08:36] LABS: Potassium 4.5 mmol/L (3.5-5.1)
[2021-07-25 08:37] LABS: Albumin 2.5 g/dL (3.5-5.0); Total Protein 5.9 g/dL (6.3-8.2)
[2021-07-25 08:53] LABS: Anisocytosis Slight; Basophils % (A) 0 %; Eosinophils % (A) 0 %; HCT 34.1 % (34.0-46.0); HGB 10.5 gm/dL (11.4-16.0); Hypochromasia Slight; Lymphocytes # (A) 0.4 k/uL (1.0-4.8); Lymphocytes % (A) 2 %; MCH 27.9 pg (25.0-35.0); MCHC 30.8 g/dL (31.0-37.0); MCV 90.6 fL (80.0-100.0); Mean Platelet Volume 11.3; Monocytes # (A) 0.6 k/uL (0-1.0); Monocytes % (A) 2 %; Neutrophils # (A) 23.5 k/uL (1.3-7.7); Neutrophils % (A) 96 %; Platelet Count 228 k/uL (150-450); RBC 3.77 m/uL (3.80-5.40); RDW 17.2 % (11.5-15.5); WBC 24.6 k/uL (3.8-10.6)
--- NOTE | 2021-07-25 09:29 | P.PN ---
Subjective Progress Note Date: 07/25/21 Principal diagnosis: Malnutrition Patient remains extubated. Appears comfortable. No pain. Tracheostomy yesterday was held. PEG tube plan for Tuesday. Objective - Vital Signs Vital signs: Vital Signs Temp 97.8 F 07/25/21 04:00 Pulse 82 07/25/21 07:43 Resp 19 07/25/21 07:00 BP 160/89 07/25/21 07:00 Pulse Ox 91 L 07/25/21 07:24 Intake & Output 07/24/21 07/25/21 07/25/21 18:59 06:59 18:59 Intake Total 1110 1300 100 Output Total 1165 940 80 Balance -55 360 20 Weight 81.8 kg 83.8 kg Intake: IV 1110 1300 100 .9 kvo 10 Dextrose 5% in Water 1, 1100 1200 100 000 ml @ 100 mls/hr IV . Q10H [facility] Rx#:[id number] Fluconazole in NaCl,Iso- 100 Osm 200 mg In Saline 1 100ml.bag @ 100 mls/hr IVPB Q24H [facility] Rx#: [id number] Output: Urine 1165 940 80 Other: Voiding Method Indwelling Catheter Indwelling Catheter ABP, PAP, CO, CI - Last Documented Arterial Blood Pressure 96/94 - Exam Abdomen: Soft, nontender, nondistended - Labs CBC & Chem 7: 07/25/21 07:21 07/25/21 07:21 Labs: Abnormal Lab Results - Last 24 Hours (Table) 07/24/21 07/24/21 07/24/21 Range/Units 11:13 16:50 18:35 WBC (3.8-10.6) k/uL RBC (3.80-5.40) m/uL Hgb (11.4-16.0) gm/dL MCHC (31.0-37.0) g/dL RDW (11.5-15.5) % Neutrophils # (1.3-7.7) k/uL Lymphocytes # (1.0-4.8) k/uL Sodium 147 H (137-145) mmol/L Chloride (98-107) mmol/L BUN (7-17) mg/dL Creatinine (0.52-1.04) mg/dL Glucose (74-99) mg/dL POC Glucose (mg/dL) 173 H 204 H (75-99) mg/dL Calcium (8.4-10.2) mg/dL Total Bilirubin (0.2-1.3) mg/dL AST (14-36) U/L ALT (4-34) U/L Total Protein (6.3-8.2) g/dL Albumin (3.5-5.0) g/dL 07/25/21 07/25/21 07/25/21 Range/Units 01:57 05:54 07:21 WBC 24.6 H (3.8-10.6) k/uL RBC 3.77 L (3.80-5.40) m/uL Hgb 10.5 L (11.4-16.0) gm/dL MCHC 30.8 L (31.0-37.0) g/dL RDW 17.2 H (11.5-15.5) % Neutrophils # 23.5 H (1.3-7.7) k/uL Lymphocytes # 0.4 L (1.0-4.8) k/uL Sodium (137-145) mmol/L Chloride (98-107) mmol/L BUN (7-17) mg/dL Creatinine (0.52-1.04) mg/dL Glucose (74-99) mg/dL POC Glucose (mg/dL) 212 H 200 H (75-99) mg/dL Calcium (8.4-10.2) mg/dL Total Bilirubin (0.2-1.3) mg/dL AST (14-36) U/L ALT (4-34) U/L Total Protein (6.3-8.2) g/dL Albumin (3.5-5.0) g/dL 07/25/21 Range/Units 07:21 WBC (3.8-10.6) k/uL RBC (3.80-5.40) m/uL Hgb (11.4-16.0) gm/dL MCHC (31.0-37.0) g/dL RDW (11.5-15.5) % Neutrophils # (1.3-7.7) k/uL Lymphocytes # (1.0-4.8) k/uL Sodium 149 H (137-145) mmol/L Chloride 116 H (98-107) mmol/L BUN 114 H* (7-17) mg/dL Creatinine 1.28 H (0.52-1.04) mg/dL Glucose 178 H (74-99) mg/dL POC Glucose (mg/dL) (75-99) mg/dL Calcium 8.2 L (8.4-10.2) mg/dL Total Bilirubin 1.6 H (0.2-1.3) mg/dL AST 66 H (14-36) U/L ALT 144 H (4-34) U/L Total Protein 5.9 L (6.3-8.2) g/dL Albumin 2.5 L (3.5-5.0) g/dL Assessment and Plan (1) Recurrent pneumonia Narrative/Plan: Continue supportive care. Patient tentatively scheduled for PEG tube on Tuesday. Current Visit: Yes Status: Acute Code(s): J18.9 - PNEUMONIA, UNSPECIFIED ORGANISM SNOMED Code(s): 347316868
--- NOTE | 2021-07-25 11:35 | P.PN ---
Subjective Progress Note Date: 07/25/21 Principal diagnosis: This is a 71-year-old female seen in consultation because of acute kidney injury. She is suspected to have glomerulonephritis possibly lupus. She was seen be cause of acute kidney injury secondary to sepsis and pneumonia bronchoscopy has been taken off of vasopressor. Also has metabolic acidosis and shock liver and hyponatremia. Additionally left-sided hydronephrosis with a ureteral stent on 06/26/2021 Currently she is off the ventilator on oxygen profoundly weak though. Barely opens her eyes. Vital signs are stable blood pressure in the 150s heart rate in the 70s to 80s atrial flutter fibrillation afebrile. 24-hour I's and O's 2420 in and 2105 out Objective - Vital Signs Vital signs: Vital Signs Temp 96.6 F L 07/25/21 08:00 Pulse 76 07/25/21 11:21 Resp 19 07/25/21 11:00 BP 157/80 07/25/21 11:00 Pulse Ox 93 L 07/25/21 11:00 Intake & Output 07/24/21 07/25/21 07/25/21 18:59 06:59 18:59 Intake Total 1110 1300 540 Output Total 1165 940 420 Balance -55 360 120 Weight 81.8 kg 83.8 kg 83.8 kg Intake: IV 1110 1300 540 .9 kvo 10 40 Dextrose 5% in Water 1, 1100 1200 500 000 ml @ 100 mls/hr IV . Q10H [facility] Rx#:[id number] Fluconazole in NaCl,Iso- 100 Osm 200 mg In Saline 1 100ml.bag @ 100 mls/hr IVPB Q24H [facility] Rx#: [id number] Output: Urine 1165 940 420 Other: Voiding Method Indwelling Catheter Indwelling Catheter Indwelling Catheter ABP, PAP, CO, CI - Last Documented Arterial Blood Pressure 96/94 Vital signs stable. General: On high flow cannula. LUNGS: Breath sounds decreased. HEART: Regular rate and rhythm. ABDOMEN: Soft, no distention. EXTREMITITES: Trace edema. [employer]; Obtunded - Labs CBC & Chem 7: 07/25/21 07:21 07/25/21 07:21 Labs: Abnormal Lab Results - Last 24 Hours (Table) 07/24/21 07/24/21 07/25/21 Range/Units 16:50 18:35 01:57 WBC (3.8-10.6) k/uL RBC (3.80-5.40) m/uL Hgb (11.4-16.0) gm/dL MCHC (31.0-37.0) g/dL RDW (11.5-15.5) % Neutrophils # (1.3-7.7) k/uL Lymphocytes # (1.0-4.8) k/uL Sodium 147 H (137-145) mmol/L Chloride (98-107) mmol/L BUN (7-17) mg/dL Creatinine (0.52-1.04) mg/dL Glucose (74-99) mg/dL POC Glucose (mg/dL) 204 H 212 H (75-99) mg/dL Calcium (8.4-10.2) mg/dL Total Bilirubin (0.2-1.3) mg/dL AST (14-36) U/L ALT (4-34) U/L Total Protein (6.3-8.2) g/dL Albumin (3.5-5.0) g/dL 07/25/21 07/25/21 07/25/21 Range/Units 05:54 07:21 07:21 WBC 24.6 H (3.8-10.6) k/uL RBC 3.77 L (3.80-5.40) m/uL Hgb 10.5 L (11.4-16.0) gm/dL MCHC 30.8 L (31.0-37.0) g/dL RDW 17.2 H (11.5-15.5) % Neutrophils # 23.5 H (1.3-7.7) k/uL Lymphocytes # 0.4 L (1.0-4.8) k/uL Sodium 149 H (137-145) mmol/L Chloride 116 H (98-107) mmol/L BUN 114 H* (7-17) mg/dL Creatinine 1.28 H (0.52-1.04) mg/dL Glucose 178 H (74-99) mg/dL POC Glucose (mg/dL) 200 H (75-99) mg/dL Calcium 8.2 L (8.4-10.2) mg/dL Total Bilirubin 1.6 H (0.2-1.3) mg/dL AST 66 H (14-36) U/L ALT 144 H (4-34) U/L Total Protein 5.9 L (6.3-8.2) g/dL Albumin 2.5 L (3.5-5.0) g/dL Assessment and Plan Assessment: Impression 1. Acute kidney injury secondary to sepsis with severe pneumonia bilaterally. Rule out SLE/GN 2. Hypernatremia sec to free water deficit, on D5W 100/ hr, Na up 149 3. Bilateral pneumonia left worse than the right 4. History of atrial fibrillation, 5. History of COPD 6. History of coronary artery bypass graft and mitral valve replacement. Recommendation 1. lasix 20 Mg IV once to induce na loss 2. Cont D5W 100. hr
[2021-07-25 11:56] LABS: Glucose,Whole Blood 167 mg/dL (75-99)
[2021-07-25] MEDS ORDERED: FAT EMULSION 20% 250 ML IV SCH (12:00)
[2021-07-25] MEDS: FUROSEMIDE 10 MG/ML 2 ML VIAL IV SCH (12:22)
[2021-07-25] MEDS: 1: MVI, ADULT NO.4 WITH VIT K 10 ML, TRACE (CONC-1ML/DOSE) 1 ML, POTASSIUM ACETATE 20 ME IV SCH ×6 (12:23)
--- NOTE | 2021-07-25 12:52 | P.PN ---
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 On today's evaluation, the patient is on no sedation. She is opening her eyes and she is following simple commands. She is profoundly weak and she is barely able to move her toes and her fingers in her upper extremities. She is blinking. She is opening her eyes. He is following simple commands. No seizure activity has been noted for now. The patient remains on a mechanical ventilator. On today's evaluation, she is an assist-control mode with a rate of 24 with a tidal volume of 400 and a PEEP of 6 with an FiO2 of 30%. The chest x-ray is still showing extensive consolidation of the left lung. Nevertheless, the patient continues to have stable oxygenation and a blood gas today shows a pH of 7.46 with a pCO2 of 35 and a pO2 of 87. The bronchoscopy and bronchial lavage and the second occasion showed Heidi. The patient remains on Diflucan. Meanwhile, there is concern for lupus pneumonitis and questionable encephalitis picture. The patient remains on high dose IV Solu Medrol 125 mg every 6 hours. This may have contributed to her improved mentation. Renal function continues to be impaired at stable. On today's blood work, sodium is at 147 with a potassium level of 3.8, BUN is at 120 with a creatinine of 4.3 and a serum bicarb of 21. Overall fluid balance over the past 24 hours is +2.5 L. The patient's LFTs are improving, AST 60, ALT is 319, and there is a downgoing trend on the LFTs. The white cell count of 15.7 with a hemoglobin of 8.4 and a platelet count of 108. Platelet counts are stable for now. The patient is on vital AF at the rate of 57 mL an hour which is currently at goal. Doppler of the lower extremity was done and the results were negative. The patient is on no anticoagulants for now. Also, antiphospholipid and anti-cardiolipin antibodies were sent and the results are still pending for now. Nephrology is on the case for now. Patient was reevaluated today on 07/20/21, remains in the ICU, intubated and mechanically ventilated. She is presently on assist control rate of 24, volume 400 FiO2 30% PEEP 5 ABG showed a pO2 of 76 pCO2 34 pH of 7.43. Hence no changes were made in her present ventilator settings. Patient is on IV fluid she was on D5W at 75 mL/h, now she is on 0.9 normal saline at 20 mL per hour. She is receiving enteral tube feeding, remains on relatively high-dose of steroids/Solu-Medrol for presumptive lupus encephalitis and lupus pneumonitis. Patient is not requiring any sedation, her chest x-ray continues to show multifocal pneumonia bilaterally left more so than right, patient is opening eyes, following very simple instructions, and this is a new finding implying improved mental status. However the patient is generally weak, and I don't believe she is ready for any weaning trials at this point. But we'll continue the same ventilatory support, we'll continue nutritional support, continue steroids and antibiotics empirically, although I am mostly suspecting lupus pneumonitis rather than bacterial pneumonia. WBC count today is 20.7 hemoglobin is 9 ABG as noted earlier. Renal functioning is poor with a BUN of 129 creatinine 3.93. Improving compared to the last few days. Patient remains on Zosyn, and she also remains on methylprednisolone 125 mg IV push every 6 hours. She is on insulin she is also on Diflucan. Reevaluated today on 07/23/2021, patient remains in the ICU, intubated and mechanically ventilated. Patient was initially intubated on 07/11, and yesterday she was given a trial of weaning with a pressure support of 12 and CPAP, however the patient had a very poor weaning parameters mostly a nif -12 only. Hence decided not to extubate the patient as she would likely have very weak cough, and will not be able to clear secretions on her own. She is now on assist control rate of 24th of 1 400 FiO2 30% PEEP of 5. ABG showed a pO2 of 78 pCO2 of 35 pH of 7.46, hence no ventilator settings changes were made. Patient is receiving enteral feeding vital AF at 57 mL per hour. Today I have a feeling that the patient will be very difficult to wean and extubate successfully, hence I'm recommending a surgical evaluation for possible tracheostomy, PEG tube placement, and she will also eventually need a PICC line placement. This will be addressed hopefully today. In the meantime I recommended that she goes back on pressure support of 12 and CPAP. And will continue to check her weaning para meters again today hopefully the patient would have a better negative inspiratory force. Chest x-ray continues to show significant infiltrate in the left lung less infiltrate in the right lung. WBC count is 21 hemoglobin 9.3. INR is 1.3. Asymptomatic metabolic profile is normal BUN is improving creatinine is improving down to 2.35. Liver profile is also improving. Reevaluated today on 07/24/2021, patient was extubated yesterday, and so far she seems to be tolerating the extubation rather well. She is however on airvo with FiO2 of 70% and flow of 50 L/m., Patient has O2 saturation in the high 90s hence we'll titrate the FiO2 down to 60% or possibly 50% and obtaining an O2 saturation of 93% or better. Patient is hemodynamically stable, not requiring any pressors. She does have a paced rhythm, she is awake, alert, oriented, follows simple instructions, however she has a very weak cough. Recommended incentive spirometry at bedside, patient is scheduled to have a PICC line placed today, continues to have a left IJ central line in place today. And has been present since the of last month. Her sodium is elevated, hence the patient is on D5W at 100 mL per hour. Speech therapy to evaluate the patient today and assess his swallow evaluation, if the patient fails may consider Lasix again nasogastric tube for enteral feeding. WBC count today is 24.5 hemoglobin is 10.2. Her sodium is 149. BUN is improving creatinine is significantly improved down to 1.81 today and the patient is having good urine output. Liver enzymes have significantly improved over the last 1 week. Patient remains on Solu- Medrol, and I cut down the dose to 60 mg IV push every 8 hours. She is now off antibiotics as she received full course of treatment for presumptive pneumonia. Reevaluated today on 07/25/2021, patient remains extubated, patient was extubated 2 days ago, so far she seems to be tolerating the extubation well, however the patient remains marginal, she has a very poor cough, and she may be developing worsening left lower lobe atelectasis and consolidation based on the chest x-ray today. Patient is unable to clear secretions with her weak cough. Her chest x- ray continues to show bilateral pneumonia left more so than right, her renal functioning however is improving, and her creatinine is much better today compared to the last few days. Patient is able to follow instructions, remains profoundly weak. Her urine output seems to be excellent, in the last 24 hours, patient had 2420 in and 04/21/2004 out. Hence no plan to give the patient any Lasix at this time. She is in atrial flutter. Patient is hemodynamically stable, not requiring any pressors. She remains on airvo at 55% FiO2 and 50 L flow. O2 saturation is in the mid 90s. Multiple attempts have been made to place an orogastric tube in this patient or a nasogastric tube, and I could not place one even with a glidescope use, and direct visualization of the vocal cords, and for some reason the nasogastric tube goes into the vocal cords every time we have attempted. Could not get it into the area posterior to the vocal cords. At any rate may have to consider a PEG tube placement in this patient comes next week. Sodium remains elevated at 149, patient continues to receive D5W. Objective - Vital Signs Vital signs: Vital Signs Temp 96.6 F L 07/25/21 08:00 Pulse 76 07/25/21 11:21 Resp 19 07/25/21 11:00 BP 157/80 07/25/21 11:00 Pulse Ox 93 L 07/25/21 11:00 Intake & Output 07/24/21 07/25/21 07/25/21 18:59 06:59 18:59 Intake Total 1110 1300 540 Output Total 1165 940 420 Balance -55 360 120 Weight 81.8 kg 83.8 kg 83.8 kg Intake: IV 1110 1300 540 .9 kvo 10 40 Dextrose 5% in Water 1, 1100 1200 500 000 ml @ 100 mls/hr IV . Q10H [facility] Rx#:[id number] Fluconazole in NaCl,Iso- 100 Osm 200 mg In Saline 1 100ml.bag @ 100 mls/hr IVPB Q24H [facility] Rx#: [id number] Output: Urine 1165 940 420 Other: Voiding Method Indwelling Catheter Indwelling Catheter Indwelling Catheter ABP, PAP, CO, CI - Last Documented Arterial Blood Pressure 96/94 - Exam Physical Exam: Revealed a 71-year-old female in no distress, on airvo. 50 lit/55% Head: Atraumatic, normocephalic. HEENT:[Neck is supple.] [No neck masses.] [No thyromegaly.] [No JVD.], EOMI, nonicteric., EOMI, nonicteric. Extremely dry mucous membranes. Skin graft noted in the anterior cervical region. Old. Chest: [Symmetrical chest expansion, crackles at the bases especially at the left side..] Patient has a very weak cough. Cardiac Exam: [Normal S1 and S2, no S3 gallop, no murmur.] Patient has a paced rhythm. Abdomen: [Soft, nontender, no megaly, no rebound, no guarding, normal bowel sounds.] Extremities: [No clubbing, no edema, no cyanosis.] Neurological Exam: Awake, alert, follows simple instructions , profoundly weak Psychiatric: Normal mood, affect and normal mental status examination, profoundly weak Skin: No rashes. - Labs CBC & Chem 7: 07/25/21 07:21 07/25/21 07:21 Labs: Abnormal Lab Results - Last 24 Hours (Table) 07/24/21 07/24/21 07/25/21 Range/Units 16:50 18:35 01:57 WBC (3.8-10.6) k/uL RBC (3.80-5.40) m/uL Hgb (11.4-16.0) gm/dL MCHC (31.0-37.0) g/dL RDW (11.5-15.5) % Neutrophils # (1.3-7.7) k/uL Lymphocytes # (1.0-4.8) k/uL Sodium 147 H (137-145) mmol/L Chloride (98-107) mmol/L BUN (7-17) mg/dL Creatinine (0.52-1.04) mg/dL Glucose (74-99) mg/dL POC Glucose (mg/dL) 204 H 212 H (75-99) mg/dL Calcium (8.4-10.2) mg/dL Total Bilirubin (0.2-1.3) mg/dL AST (14-36) U/L ALT (4-34) U/L Total Protein (6.3-8.2) g/dL Albumin (3.5-5.0) g/dL 07/25/21 07/25/21 07/25/21 Range/Units 05:54 07:21 07:21 WBC 24.6 H (3.8-10.6) k/uL RBC 3.77 L (3.80-5.40) m/uL Hgb 10.5 L (11.4-16.0) gm/dL MCHC 30.8 L (31.0-37.0) g/dL RDW 17.2 H (11.5-15.5) % Neutrophils # 23.5 H (1.3-7.7) k/uL Lymphocytes # 0.4 L (1.0-4.8) k/uL Sodium 149 H (137-145) mmol/L Chloride 116 H (98-107) mmol/L BUN 114 H* (7-17) mg/dL Creatinine 1.28 H (0.52-1.04) mg/dL Glucose 178 H (74-99) mg/dL POC Glucose (mg/dL) 200 H (75-99) mg/dL Calcium 8.2 L (8.4-10.2) mg/dL Total Bilirubin 1.6 H (0.2-1.3) mg/dL AST 66 H (14-36) U/L ALT 144 H (4-34) U/L Total Protein 5.9 L (6.3-8.2) g/dL Albumin 2.5 L (3.5-5.0) g/dL /10/09 Range/Units 11:55 WBC (3.8-10.6) k/uL RBC (3.80-5.40) m/uL Hgb (11.4-16.0) gm/dL MCHC (31.0-37.0) g/dL RDW (11.5-15.5) % Neutrophils # (1.3-7.7) k/uL Lymphocytes # (1.0-4.8) k/uL Sodium (137-145) mmol/L Chloride (98-107) mmol/L BUN (7-17) mg/dL Creatinine (0.52-1.04) mg/dL Glucose (74-99) mg/dL POC Glucose (mg/dL) 167 H (75-99) mg/dL Calcium (8.4-10.2) mg/dL Total Bilirubin (0.2-1.3) mg/dL AST (14-36) U/L ALT (4-34) U/L Total Protein (6.3-8.2) g/dL Albumin (3.5-5.0) g/dL Assessment and Plan Assessment: Impression: 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 Possible community-acquired pneumonia. Patient is now off antibiotics, but she is still receiving steroids the dose has been lowered down to 60 mg IV push every 8 hours. Septic shock with multisystem organ failure Acute lupus encephalitis. Acute metabolic encephalopathy. 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 Acute kidney injury, suspect acute tubular necrosis. Improving. Patient is having no issues with urine output. Acute shock liver, resolved. Underlying COPD, presently inactive Benign essential hypertension. History of pacemaker implantation. Coronary arteriosclerosis and previous CABG Valvular heart disease and mitral valve replacement acute Coumadin toxicity, treated and recovered Thrombocytopenia secondary to sepsis, resolved, platelets are normal. Diarrhea, negative C. difficile colitis. Recommendation: Continue airvo and titrate FiO2 down as tolerated maintain O2 saturation above 93%. Continue nutritional support. TPN for now until patient gets either a nasogastric tube placed or PEG tube placement Continue Solu-Medrol. Presently at 60 mg IV push every 8 hours. Off antibiotics/Zosyn for now. Continue GI and DVT prophylaxis. Continue bronchodilators. Continue insulin , patient is on sliding scale. Continue fluconazole. Continue Keppra. Remains critically ill. Discussed her condition with the daughter at bedside, discussed her condition with the admitting physician/Dr. Griffin Patient remains marginal at best, and I have a feeling that she may require reintubation if she does not improve her cough and unable to clear secretions may have to even consider bronchoscopy at the time. Critical care time is over 30 minutes Time with Patient: Greater than 30
--- NOTE | 2021-07-25 13:02 | P.PN ---
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 Sampson Person. July 24: ICU: Patient on Airvo. At 58% and 50 L nasal flow. Artery today patient failed a swallow test. Plan is to put the patient on NG tube for feeding. Also awaiting a PICC line. Does follow simple commands. Weakness extremities. Getting IV fluids. July 25: ICU: Remains on Airvo. 50% and 50 L. Failed NG tube placement yesterday and this morning. Tired. TPN and lipids ordered. Active Medications Acetaminophen (Acetaminophen Tab 325 Mg Tab) 650 mg PO Q4HR PRN PRN Reason: Fever and/ or Pain Last Admin: 07/12/21 00:02 Dose: 650 mg Documented by: Albuterol/Ipratropium (Ipratropium-Albuterol 3 Ml Neb) 3 ml INHALATION RT-QID [facility] Last Admin: 07/25/21 11:12 Dose: 3 ml Documented by: Furosemide (Furosemide 10 Mg/Ml 2 Ml Vial) 20 mg IV DAILY [facility] Last Admin: 07/25/21 12:22 Dose: 20 mg Documented by: Sodium Chloride (Saline 0.9%) 1,000 mls @ 5 mls/hr IV .Q24H [facility] Last Admin: 07/24/21 05:56 Dose: 5 mls/hr Documented by: Fluconazole/Sodium Chloride (200 mg/ IV Solution) 100 mls @ 100 mls/hr IVPB Q24H [facility]; Protocol Last Admin: 07/24/21 18:36 Dose: 100 mls/hr Documented by: Dextrose/Water (Dextrose 5%-Water Iv Soln) 1,000 mls @ 100 mls/hr IV .Q10H [facility] Last Admin: 07/25/21 12:24 Dose: 100 mls/hr Documented by: Lactated Ringer's (Lactated Ringers) 1,000 mls @ 20 mls/hr IV .Q24H [facility] Parenteral Vitamin Supplement 10 ml/ Zinc/Copper/Manganese/Selenium 1 ml/ Potassium Acetate 20 meq/ Calcium Gluconate 1 gm/ Magnesium Sulfate 1 gm/ Amino Acids/Dextrose 1,033 mls @ 30 mls/hr IV .BY DURATION [facility] Last Admin: 07/25/21 12:23 Dose: 30 mls/hr Documented by: Potassium Acetate 20 meq/Calcium Gluconate 1 gm/Magnesium Sulfate 1 gm/ Amino Acids/Dextrose 1,022 mls @ 30 mls/hr IV .BY DURATION [facility] Fat Emulsion Intravenous (Lipids 20%) 250 mls @ 20.833 mls/hr IV Sa@1200 [facility] Last Admin: 07/25/21 12:23 Dose: 20.833 mls/hr Documented by: Insulin Aspart (Insulin Aspart (Novolog) 100 Unit/Ml Vial) 0 unit SQ Q6H [facility]; Protocol Last Admin: 07/25/21 12:22 Dose: 2 unit Documented by: Insulin Detemir (Insulin Detemir (Levemir) 100 Unit/Ml Syr) 14 unit SQ DAILY@0700 [facility] Last Admin: 07/25/21 06:04 Dose: 14 unit Documented by: Methylprednisolone Sodium Succinate (Methylprednisolone Sod Succi 125 Mg/2 Ml Vial) 60 mg IV Q8HR [facility] Last Admin: 07/25/21 08:29 Dose: 60 mg Documented by: Metoclopramide HCl (Metoclopramide 5 Mg/Ml 2 Ml Vial) 10 mg IVP Q6HR [facility] Last Admin: 07/25/21 12:23 Dose: 10 mg Documented by: Miscellaneous Information ([facility]neumonia [facility] 1 each PO ONCE PRN PRN Reason: Per Protocol Naloxone HCl (Naloxone 0.4 Mg/Ml 1 Ml Vial) 0.2 mg IV Q2M PRN PRN Reason: Opioid Reversal Sodium Bicarbonate (Sodium Bicarbonate Tab 650 Mg Tab) 650 mg PO BID [facility] Last Admin: 07/25/21 08:12 Dose: Not Given Documented by: Sodium Chloride (Sodium Chloride 0.9% Flush 10 Ml Syringe) 10 ml IV Q4HR PRN PRN Reason: PICC Line Sodium Chloride (Sodium Chloride 0.9% Flush 10 Ml Syringe) 10 ml IV WEEKLY [facility] Sodium Chloride (Sodium Chloride 0.9% Flush 10 Ml Syringe) 20 ml IV Q4HR PRN PRN Reason: PICC Line On examination: VITAL SIGNS: 96.6, 91, 20, 155/88, 95% on Airvo GENERAL APPEARANCE: Propped up in bed, tired HEENT: Normal external appearance of nose and ear. Oral cavity dry EYES: Pupils equal. Conjunctiva normal. NECK: JVD unable to assess. Mass not palpable. RESPIRATORY: Respiratory effort increased. Decreased breath sounds CARDIOVASCULAR: First and second sounds normal. Some edema. ABDOMEN: Soft. Liver and spleen not palpable. No tenderness. No mass palpable. PSYCHIATRY: Not really able to answer questions NEUROLOGICAL: Weakness in all limbs. INVESTIGATIONS, reviewed in the clinical context: July 25: White count 24.60 globin 10.5 sodium 149 potassium 4.5 BUN 114 creatinine 1.28 White count 24.5 hemoglobin 10.2 platelets 219 sodium 149 potassium 4.1 BUN 133 creatinine 1.81 AST 57 ALT 171 Assessment and plan: -Acute hypoxic respiratory failure secondary to pneumonia. Patient extubated on July 23. Airvo 50/50 -Gram-negative pneumonia suspected. Completed course of Zosyn on July 23. -Septic shock with multisystem organ failure: Better Patient's off pressor support -Oropharyngeal candidiasis Diflucan -Acute septic metabolic encephalopathy, multifactorial. -Acute hemorrhagic infarct involving the right parietal lobe 5 mm in size. Exact cause unclear. INR was reversed. Being followed by neurology. -Acute kidney injury, acute tubular necrosis from septic shock.: Nonoliguric Follow with nephrology. Creatinine peaked at 4.57. Now 1.28 - Metabolic acidosis secondary to acute kidney injury On bicarbonate supplement -Acute shock liver, improved -Left-sided hydronephrosis, status post left ureteral stent on 07/16/2021 Follow with urology -COPD, presently inactive -Dysphagia/aspiration. Patient failed swallow evaluation on June 24. NG tube could not be placed. -Benign essential hypertension. Currently off antihypertensive -History of pacemaker implantation. -CAD previous CABG -Valvular heart disease and mitral valve replacement acute Coumadin toxicity, treated and recovered -Thrombocytopenia secondary to sepsis, resolved, platelets are normal.: -Antibiotic associated Diarrhea, negative C. difficile colitis. -TPN and lipids ordered . IV Solu-Medrol 60 mg every 8. Diflucan. Insulin. Follow Accu-Cheks. NG tube could not be placed. TPN and lipids. Prognosis guarded.
[2021-07-25 17:53] LABS: Glucose,Whole Blood 198 mg/dL (75-99)
[2021-07-25] MEDS: FLUCONAZOLE IN NACL,ISO-OSM 200 MG in SALINE 1 100ML.BAG IVPB SCH (17:59)
[2021-07-25] MEDS: SODIUM CHLORIDE 0.9% 1,000 ML IV SCH (18:40)
[2021-07-25] MEDS: LACTATED RINGERS 1,000 ML IV SCH (18:40)
[2021-07-25] MEDS: NYSTATIN 100,000 UNIT/ML SUSP 500,000 UNIT/5 ML CUP PO SCH (21:59)
--- NOTE | 2021-07-25 23:38 | P.PN ---
Subjective Progress Note Date: 07/25/21 Principal diagnosis: Pneumonia Patient is a 71-year-old female with a past medical history significant for COPD and recent admission to [facility] for pneumonia pr esented to hospital with increasing shortness of breath and cough with a CT suspicious for left lower lobe pneumonia. The patient is status post cystoscopy and left ureteral stent placement completed on 07/16/2021 On today's evaluation that is 07/25/2021, the patient remains to be afebrile , the patient is hemodynamically stable not requiring any pressor support the patient is breathing comfortably on high flow nasal canal oxygen, the patient is slightly lethargic and not a good historian however no vomiting no abdominal pain and no diarrhea has been reported Objective - Vital Signs Vital signs: Vital Signs Temp 96.6 F L 07/25/21 08:00 Pulse 78 07/25/21 15:23 Resp 19 07/25/21 11:00 BP 157/80 07/25/21 11:00 Pulse Ox 93 L 07/25/21 11:00 Intake & Output 07/24/21 07/25/21 07/25/21 18:59 06:59 18:59 Intake Total 1110 1300 1090 Output Total 1165 940 800 Balance -55 360 290 Weight 81.8 kg 83.8 kg 83.8 kg Intake: IV 1110 1300 1090 .9 kvo 10 40 Dextrose 5% in Water 1, 1100 1200 900 000 ml @ 100 mls/hr IV . Q10H [facility] Rx#:[id number] Fat Emulsion 20% 250 ml @ 60 20.833 mls/hr IV Sa@1200 [facility] Rx#:[id number] Fluconazole in NaCl,Iso- 100 Osm 200 mg In Saline 1 100ml.bag @ 100 mls/hr IVPB Q24H [facility] Rx#: [id number] Mvi, Adult No.4 with Vit 90 K 10 ml Trace (Conc-1Ml/ Dose) 1 ml Potassium Acetate 20 meq Calcium Gluconate 1 gm Magnesium Sulfate gm 1 gm In Amino Acid 5%-D15w 1,000 ml @ 30 mls/hr IV .BY DURATION [facility] Rx#:[id number] Output: Urine 1165 940 800 Other: Voiding Method Indwelling Catheter Indwelling Catheter Indwelling Catheter ABP, PAP, CO, CI - Last Documented Arterial Blood Pressure 96/94 - Exam GENERAL DESCRIPTION: An elderly female lying in bed in no distress RESPIRATORY SYSTEM: Unlabored breathing , decreased breath sounds at bases HEART: S1 S2 regular rate and rhythm , ABDOMEN: Soft , no tenderness EXTREMITIES: No edema feet - Labs CBC & Chem 7: 07/25/21 07:21 07/25/21 07:21 Labs: Abnormal Lab Results - Last 24 Hours (Table) 07/24/21 07/24/21 07/25/21 Range/Units 16:50 18:35 01:57 WBC (3.8-10.6) k/uL RBC (3.80-5.40) m/uL Hgb (11.4-16.0) gm/dL MCHC (31.0-37.0) g/dL RDW (11.5-15.5) % Neutrophils # (1.3-7.7) k/uL Lymphocytes # (1.0-4.8) k/uL Sodium 147 H (137-145) mmol/L Chloride (98-107) mmol/L BUN (7-17) mg/dL Creatinine (0.52-1.04) mg/dL Glucose (74-99) mg/dL POC Glucose (mg/dL) 204 H 212 H (75-99) mg/dL Calcium (8.4-10.2) mg/dL Total Bilirubin (0.2-1.3) mg/dL AST (14-36) U/L ALT (4-34) U/L Total Protein (6.3-8.2) g/dL Albumin (3.5-5.0) g/dL 07/25/21 07/25/21 07/25/21 Range/Units 05:54 07:21 07:21 WBC 24.6 H (3.8-10.6) k/uL RBC 3.77 L (3.80-5.40) m/uL Hgb 10.5 L (11.4-16.0) gm/dL MCHC 30.8 L (31.0-37.0) g/dL RDW 17.2 H (11.5-15.5) % Neutrophils # 23.5 H (1.3-7.7) k/uL Lymphocytes # 0.4 L (1.0-4.8) k/uL Sodium 149 H (137-145) mmol/L Chloride 116 H (98-107) mmol/L BUN 114 H* (7-17) mg/dL Creatinine 1.28 H (0.52-1.04) mg/dL Glucose 178 H (74-99) mg/dL POC Glucose (mg/dL) 200 H (75-99) mg/dL Calcium 8.2 L (8.4-10.2) mg/dL Total Bilirubin 1.6 H (0.2-1.3) mg/dL AST 66 H (14-36) U/L ALT 144 H (4-34) U/L Total Protein 5.9 L (6.3-8.2) g/dL Albumin 2.5 L (3.5-5.0) g/dL 07/25/21 Range/Units 11:55 WBC (3.8-10.6) k/uL RBC (3.80-5.40) m/uL Hgb (11.4-16.0) gm/dL MCHC (31.0-37.0) g/dL RDW (11.5-15.5) % Neutrophils # (1.3-7.7) k/uL Lymphocytes # (1.0-4.8) k/uL Sodium (137-145) mmol/L Chloride (98-107) mmol/L BUN (7-17) mg/dL Creatinine (0.52-1.04) mg/dL Glucose (74-99) mg/dL POC Glucose (mg/dL) 167 H (75-99) mg/dL Calcium (8.4-10.2) mg/dL Total Bilirubin (0.2-1.3) mg/dL AST (14-36) U/L ALT (4-34) U/L Total Protein (6.3-8.2) g/dL Albumin (3.5-5.0) g/dL Assessment and Plan (1) Pneumonia Current Visit: Yes Status: Acute Code(s): J18.9 - PNEUMONIA, UNSPECIFIED ORGANISM SNOMED Code(s): 991258294 Plan: 1patient presented to hospital with acute respiratory failure with in this patient did have hypoxemia increasing shortness of breath and cough with evidence of left lower lobe pneumonia on the CT and recently admitted and treated at [facility] and concerning for a gram-negative pneumonia sputum and bronchial culture were negative and the patient has completed a course of Zosyn. 2patient with elevated white count more likely steroid effect and a possible component of oropharyngeal candidiasis , patient to continue with the Diflucan and will monitor white count and clinical course closely Time with Patient: Less than 30
[2021-07-26 00:18] LABS: Glucose,Whole Blood 233 mg/dL (75-99)
[2021-07-26] MEDS: DEXTROSE 5% IN WATER 1,000 ML IV SCH ×2 (00:22→17:45)
[2021-07-26] MEDS: METOCLOPRAMIDE 5 MG/ML 2 ML VIAL IVP SCH ×4 (00:22→17:16)
[2021-07-26] MEDS: methylPREDNISolone SOD SUCCI 125 MG/2 ML VIAL IV SCH ×3 (00:22→17:16)
[2021-07-26] MEDS: INSULIN ASPART (NovoLOG) 100 UNIT/ML VIAL SQ SCH ×4 (00:22→17:45)
[2021-07-26] MEDS ORDERED: propofoL 100 ML IV ONE (03:31)
--- NOTE | 2021-07-26 04:02 | XR ---
EXAMINATION TYPE: XR chest 1V portable DATE OF EXAM: 07/26/2021 COMPARISON: 07/25/2021 HISTORY: Hypoxemia TECHNIQUE: Single view FINDINGS: There is complete opacification left hemithorax. Heart is deviated slightly to the left lb e. There are sternal wires. There is left axillary pacemaker. Right lung shows some interstitial pulm onary infiltrates. There is cardiac valve surgery. Bony thorax is intact. IMPRESSION: There is progressive opacification on the left side with volume loss and consistent with combined pleural fluid and atelectasis and consolidation. There is complete left hemithorax opacifica tion. No heart failure seen.
--- NOTE | 2021-07-26 04:24 | XR ---
EXAMINATION TYPE: XR chest 1V portable DATE OF EXAM: 07/26/2021 COMPARISON: Today HISTORY: Tube placement TECHNIQUE: Single view FINDINGS: The endotracheal tube is 3 cm from the nicho. There is opacification left hemithorax witho ut change. There is cardiac valve surgery. Right lung is fairly clear. No heart failure seen. There i s left axillary pacemaker. There is right subclavian catheter with tip in the right atrium. There is nasogastric tube looped in the stomach. IMPRESSION: Opacification left hemithorax without change. Tubing in good position.
[2021-07-26 04:30] LABS: Anisocytosis Slight; Basophils % (A) 0 %; Eosinophils # (A) 0.1 k/uL (0-0.7); Eosinophils % (A) 0 %; HCT 33.8 % (34.0-46.0); HGB 10.5 gm/dL (11.4-16.0); Hypochromasia Moderate; Lymphocytes # (A) 0.2 k/uL (1.0-4.8); Lymphocytes % (A) 1 %; MCH 28.4 pg (25.0-35.0); MCV 91.6 fL (80.0-100.0); Mean Platelet Volume 10.2; Monocytes # (A) 0.6 k/uL (0-1.0); Monocytes % (A) 2 %; Neutrophils # (A) 25.5 k/uL (1.3-7.7); Neutrophils % (A) 96 %; Platelet Count 255 k/uL (150-450); RBC 3.69 m/uL (3.80-5.40); WBC 26.5 k/uL (3.8-10.6)
[2021-07-26 04:35] LABS: Ionized Calcium 5.3 mg/dL (4.5-5.3)
[2021-07-26 04:43] LABS: Albumin 2.4 g/dL (3.5-5.0); Calcium 7.8 mg/dL (8.4-10.2); Magnesium 1.8 mg/dL (1.6-2.3); Phosphorus 5.7 mg/dL (2.5-4.5); Potassium 3.9 mmol/L (3.5-5.1); Total Bilirubin 1.4 mg/dL (0.2-1.3); Total Protein 5.3 g/dL (6.3-8.2)
[2021-07-26 04:45] LABS: INR 1.3 (<1.2); Partial Thromboplastin Time 20.7 sec (22.0-30.0); Prothrombin Time 13.2 sec (9.0-12.0)
[2021-07-26 04:53] LABS: Anisocytosis (M) Present; Poikilocytosis (M) Present
[2021-07-26 05:08] LABS: ABG Base Excess -0.3 mmol/L; ABG HCO3 25 mmol/L (21-25); ABG Oxygen Saturation 94.7 % (94-97); ABG PCO2 41 mmHg (35-45); ABG PH 7.39 (7.35-7.45); ABG PO2 77 mmHg (83-108); ABG TCO2 26 mmol/L (19-24); Allen Test Performed? Yes
[2021-07-26] MEDS ORDERED: Magnesium Replacement Protocol 1 EACH MISC MISCELLANE PRN (05:12)
[2021-07-26] MEDS: MAGNESIUM SULFATE-D5W PMX 1 GM in DEXTROSE/WATER 1 100ML.BAG IVPB SCH ×2 (05:24→06:36)
[2021-07-26 05:33] LABS: Glucose,Whole Blood 238 mg/dL (75-99)
[2021-07-26] MEDS: INSULIN DETEMIR (LEVEMIR) 100 UNIT/ML SYR SQ SCH (06:38)
[2021-07-26] MEDS: IPRATROPIUM-ALBUTEROL 3 ML NEB INHALATION SCH ×4 (07:10→19:23)
--- NOTE | 2021-07-26 08:54 | P.PN ---
Subjective Progress Note Date: 07/26/21 Principal diagnosis: This is a 71-year-old female seen in consultation because of acute kidney injury. She was seen because of acute kidney injury secondary to sepsis and pneumonia. There is some suspicion that she might have glomerular nephritis with lupus. Also has metabolic acidosis and shock liver and hyponatremia. Additionally left-sided hydronephrosis with a ureteral stent on 06/26/2021 She had come off of the ventilator on 07/23/2021, but this morning 07/26/2021 sh e had to be intubated. Currently on 70% FiO2 not on any inotropes. She has a paced rhythm. t her blood pressures are in the 120 systolic to 140 systolic, afebrile, heart rate in the 70s. 24-hour intake 2410 and output 2105. I had started her on Lasix yesterday 07/25/2021, on 20 mg IV daily was edema and hyponatremia and she was on D5W Her creatinine was 1.81 on 07/24/2021, 1.28 on 07/25/2021 and this morning is 1.39. Sodium improved from 149 yesterday to 143 today - History of Present Illness This is 71-year-old female seen in consultation because of acute kidney injury. She was recently admitted to an outside hospital for pneumonia and had pacemaker changed she is discharged with oral antibiotic but continued to have cough and shortness of breath. Came to the hospital back and chest x-ray showed bilateral pneumonia with the left lung severely involved more than the right. Computed tomography scan of the chest showed dense consolidation but also involving the right lung. No pleural effusion. Cardiomegaly with marked left atrial enlargement and calcification in the coronary vessels. No pericardial effusion. She was then was intubated yesterday and started on levo fed and currently is on the ventilator. Her creatinine was 1.78 on admission and currently is 2.6. She is almost anuric. Blood pressures in the 100 and range heart rate in the 90s temp is 100.3 Currently she is on levo fed and vasopressin as well as sodium bicarbonate drip Objective - Vital Signs Vital signs: Vital Signs Temp 98.2 F 07/26/21 04:00 Pulse 78 07/26/21 07:19 Resp 24 07/26/21 07:00 BP 125/72 07/26/21 07:00 Pulse Ox 97 07/26/21 07:00 Intake & Output 07/25/21 07/26/21 07/26/21 18:59 06:59 18:59 Intake Total 1540 1972.626 Output Total 1125 1200 Balance 415 772.626 Weight 83.8 kg 78.1 kg Intake: IV 1540 1950 .9 kvo 40 Dextrose 5% in Water 1, 1200 1300 000 ml @ 100 mls/hr IV . Q10H [facility] Rx#:[id number] Fat Emulsion 20% 250 ml @ 120 260 20.833 mls/hr IV Sa@1200 [facility] Rx#:[id number] Mvi, Adult No.4 with Vit 180 390 K 10 ml Trace (Conc-1Ml/ Dose) 1 ml Potassium Acetate 20 meq Calcium Gluconate 1 gm Magnesium Sulfate gm 1 gm In Amino Acid 5%-D15w 1,000 ml @ 30 mls/hr IV .BY DURATION [facility] Rx#:[id number] Intake, IV Titration 22.626 Amount propofoL 1,000 mg In 22.626 Empty Bag 1 bag @ 5 MCG/ KG/MIN 2.514 mls/hr IV . Q24H [facility] Rx#:[id number] Output: Urine 1125 1200 Other: Voiding Method Indwelling Catheter Indwelling Catheter ABP, PAP, CO, CI - Last Documented Arterial Blood Pressure 96/94 Exam general she is on the ventilator 70% FiO2 on a paced rhythm Lungs are significant for bilateral coarse crackles moderate amount both sides Good air entry bilaterally on the ventilator Heart sounds unremarkable paced rhythm with atrial fibrillation/flutter in the background. Abdomen is soft nondistended Extremity exam reveals mild edema Neurologically obtunded - Labs CBC & Chem 7: 07/26/21 04:17 07/26/21 04:17 Labs: Abnormal Lab Results - Last 24 Hours (Table) 07/25/21 07/25/21 07/25/21 Range/Units 07:21 11:55 17:51 WBC 24.6 H (3.8-10.6) k/uL RBC 3.77 L (3.80-5.40) m/uL Hgb 10.5 L (11.4-16.0) gm/dL Hct (34.0-46.0) % MCHC 30.8 L (31.0-37.0) g/dL RDW 17.2 H (11.5-15.5) % Neutrophils # 23.5 H (1.3-7.7) k/uL Lymphocytes # 0.4 L (1.0-4.8) k/uL PT (9.0-12.0) sec INR (<1.2) APTT (22.0-30.0) sec ABG pO2 (83-108) mmHg ABG Total CO2 (19-24) mmol/L Chloride (98-107) mmol/L BUN (7-17) mg/dL Creatinine (0.52-1.04) mg/dL Glucose (74-99) mg/dL POC Glucose (mg/dL) 167 H 198 H (75-99) mg/dL Calcium (8.4-10.2) mg/dL Phosphorus (2.5-4.5) mg/dL Total Bilirubin (0.2-1.3) mg/dL AST (14-36) U/L ALT (4-34) U/L Total Protein (6.3-8.2) g/dL Albumin (3.5-5.0) g/dL 07/26/21 07/26/21 07/26/21 Range/Units 00:17 04:17 04:17 WBC 26.5 H (3.8-10.6) k/uL RBC 3.69 L (3.80-5.40) m/uL Hgb 10.5 L (11.4-16.0) gm/dL Hct 33.8 L (34.0-46.0) % MCHC (31.0-37.0) g/dL RDW 17.0 H (11.5-15.5) % Neutrophils # 25.5 H (1.3-7.7) k/uL Lymphocytes # 0.2 L (1.0-4.8) k/uL PT (9.0-12.0) sec INR (<1.2) APTT (22.0-30.0) sec ABG pO2 (83-108) mmHg ABG Total CO2 (19-24) mmol/L Chloride 110 H (98-107) mmol/L BUN 97 H (7-17) mg/dL Creatinine 1.39 H (0.52-1.04) mg/dL Glucose 241 H (74-99) mg/dL POC Glucose (mg/dL) 233 H (75-99) mg/dL Calcium 7.8 L (8.4-10.2) mg/dL Phosphorus 5.7 H (2.5-4.5) mg/dL Total Bilirubin 1.4 H (0.2-1.3) mg/dL AST 56 H (14-36) U/L ALT 135 H (4-34) U/L Total Protein 5.3 L (6.3-8.2) g/dL Albumin 2.4 L (3.5-5.0) g/dL 07/26/21 07/26/21 07/26/21 Range/Units 04:17 05:02 05:31 WBC (3.8-10.6) k/uL RBC (3.80-5.40) m/uL Hgb (11.4-16.0) gm/dL Hct (34.0-46.0) % MCHC (31.0-37.0) g/dL RDW (11.5-15.5) % Neutrophils # (1.3-7.7) k/uL Lymphocytes # (1.0-4.8) k/uL PT 13.2 H (9.0-12.0) sec INR 1.3 H (<1.2) APTT 20.7 L (22.0-30.0) sec ABG pO2 77 L (83-108) mmHg ABG Total CO2 26 H (19-24) mmol/L Chloride (98-107) mmol/L BUN (7-17) mg/dL Creatinine (0.52-1.04) mg/dL Glucose (74-99) mg/dL POC Glucose (mg/dL) 238 H (75-99) mg/dL Calcium (8.4-10.2) mg/dL Phosphorus (2.5-4.5) mg/dL Total Bilirubin (0.2-1.3) mg/dL AST (14-36) U/L ALT (4-34) U/L Total Protein (6.3-8.2) g/dL Albumin (3.5-5.0) g/dL Assessment and Plan Assessment: Impression 1. Acute kidney injury secondary to sepsis with severe pneumonia bilaterally. Rule out SLE/GN . Creatinine had improved from 1.8-1.28 yesterday and slightly up to 1.39 today after having been reintubated earlier this morning 2. Hypernatremia sec to free water deficit, corrected with Lasix and D5W. Also D5W right now 3. Bilateral pneumonia left worse than the right, reintubated 4. History of atrial fibrillation, paced rhythm 5. History of COPD 6. History of coronary artery bypass graft and mitral valve replacement. Recommendation 1. Continue lasix 20 Mg I daily. 2. Agree with discontinuation of the D5W. 3. Monitor labs urine output. 4. Blood pressure goes down holding the Lasix
[2021-07-26] MEDS: FUROSEMIDE 10 MG/ML 2 ML VIAL IV SCH (09:43)
[2021-07-26] MEDS: SODIUM BICARBONATE TAB 650 MG TAB PO SCH ×2 (09:44→20:53)
[2021-07-26] MEDS: NYSTATIN 100,000 UNIT/ML SUSP 500,000 UNIT/5 ML CUP PO SCH ×4 (09:44→21:02)
[2021-07-26] MEDS: PIPERACILLIN-TAZOBACTAM 3.375 GM in SODIUM CHLORIDE 0.9% 100 ML IVPB SCH ×2 (09:44→17:00)
--- NOTE | 2021-07-26 09:53 | XR ---
EXAMINATION TYPE: XR chest 1V portable DATE OF EXAM: 07/26/2021 COMPARISON: 07/26/2021 HISTORY: Shortness of breath TECHNIQUE: Single frontal view of the chest is obtained. FINDINGS: There is a ET tube approximately 3.2 cm above the nicho. There is a right-sided PICC line terminating in the SVC/R junction. There is a single lead cardiac pa cemaker. There are median sternotomy wires and a prosthetic heart valve. There is improved aeration in the left lung which on the previous study is completely opacified. Ther e is a persistent moderate left pleural effusion obscuring the left hemidiaphragm. Heart size is not enlarged but there is pulmonary vascular congestion and alveolar edema IMPRESSION: 1. ET tube 3.2 cm above the nicho. 2. Marked improvement in the left hemithorax with significant reduction in the pleural effusion. A mo derate pleural effusion persists. 3. Persistent pulmonary vascular congestion and alveolar edema
[2021-07-26] MEDS: CHLORHEXIDINE GLUCONATE 15 ML CUP MUCOUS MEM SCH ×2 (09:56→20:53)
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
--- NOTE | 2021-07-26 11:35 | OP ---
OPERATIVE REPORT OPERATIVE REPORT: Placement of a left brachial arterial line. PREOPERATIVE DIAGNOSIS: Acute hypoxic respiratory failure requiring intubation and mechanical ventilation secondary to pneumonia. POSTOPERATIVE DIAGNOSIS: Acute hypoxic respiratory failure requiring intubation and mechanical ventilation secondary to pneumonia. ANESTHESIA USED: None deployed. PROCEDURE DESCRIPTION: The patient was placed in supine position. The left brachial area was prepared in a sterile fashion and drapes were applied. The left brachial artery was palpated, easily cannulated, and a guidewire was placed. A Cook's catheter was inserted over the guidewire, and the guidewire was removed. Good blood flow and good wave form were noted. No complications. Line was secured using 3.0 silk sutures. MMODL / IJN: [id number] /
--- NOTE | 2021-07-26 11:35 | OP ---
OPERATIVE REPORT OPERATIVE REPORT: Bronchoscopy, extraction of mucus plugs from left mainstem bronchus, bronchoalveolar lavage of the left lung, including left upper lobe, lingula and left lower lobe. PREOPERATIVE DIAGNOSIS: Acute collapse of left lung secondary to mucus plugging involving the left mainstem bronchus and secondary to pneumonia involving the left lung. POSTOPERATIVE DIAGNOSIS: Acute collapse of left lung secondary to mucus plugging involving the left mainstem bronchus and secondary to pneumonia involving the left lung. ANESTHESIA USED: Patient was already on mechanical ventilation. She was already on propofol drip, and the patient was given a bolus of propofol at 50 mcg x1. PROCEDURE DESCRIPTION: Patient was placed in supine. An adapter was applied to the endotracheal tube and was connected to mechanical ventilation. After adequate sedation, the bronchoscope was advanced through the down to the area of the distal trachea, and as we visualized the nicho I could easily see there were significant mucus plugs involving the left mainstem bronchus. The right side was examined; hardly any mucus secretions noted in the right lung. Right upper lobe, right middle lobe, right lower lobe were intact. Then a thorough lavage was done of the left side. Mucus plugs were extracted and suctioned out, and I was able to visualize all the different lobes. Lavage of the left upper lobe, lavage of the lingula and lavage of the left lower lobe was done until all the secretions were cleared. The procedure was well tolerated. The purulent secretions removed from the left lung were sent for different diagnostic studies, mostly cultures. Procedure was well tolerated. Postoperative chest x-ray showed significant improvement and re-expansion of the left lung. MMODL / IJN: [id number] /
[2021-07-26 13:47] LABS: Glucose,Whole Blood 210 mg/dL (75-99)
[2021-07-26 15:30] LABS: Appearance,BF Cloudy
[2021-07-26] MEDS: SODIUM CHLORIDE 0.9% 1,000 ML IV SCH (16:11)
[2021-07-26] MEDS: LACTATED RINGERS 1,000 ML IV SCH (17:36)
[2021-07-26 17:43] LABS: Glucose,Whole Blood 239 mg/dL (75-99)
[2021-07-26] MEDS: FLUCONAZOLE IN NACL,ISO-OSM 200 MG in SALINE 1 100ML.BAG IVPB SCH (17:45)
--- NOTE | 2021-07-26 18:13 | P.PN ---
Progress Note - Text Progress Note Date: 07/26/21 Acute hypoxic respiratory failure secondary to multifocal pneumonia, suspect lupus pneumonitis Hospital course: I'm rounding for Dr. Sampson Person. July 24: ICU: Patient on Airvo. At 58% and 50 L nasal flow. Artery today patient failed a swallow test. Plan is to put the patient on NG tube for feeding. Also awaiting a PICC line. Does follow simple commands. Weakness extremities. Getting IV fluids. July 25: ICU: Remains on Airvo. 50% and 50 L. Failed NG tube placement yesterday and this morning. Tired. TPN and lipids ordered. July 26: ICU: Patient on 4:00 this morning got intubated. FiO2 50 and a PEEP of 5. Propofol drip. Paced rhythm. X-ray from today had shown left-sided near w hiteout. Bronchoscopy by Dr. Angel was carried out mucous plug was removed a lot of bronchial infected secretions removed from the left lung. Cultures were sent Active Medications Acetaminophen (Acetaminophen Tab 325 Mg Tab) 650 mg PO Q4HR PRN PRN Reason: Fever and/ or Pain Last Admin: 07/12/21 00:02 Dose: 650 mg Documented by: Albuterol/Ipratropium (Ipratropium-Albuterol 3 Ml Neb) 3 ml INHALATION RT-QID [facility] Last Admin: 07/26/21 15:38 Dose: 3 ml Documented by: Chlorhexidine Gluconate (Chlorhexidine Gluconate 15 Ml Cup) 15 ml MUCOUS MEM BID [facility] Last Admin: 07/26/21 09:56 Dose: Not Given Documented by: Furosemide (Furosemide 10 Mg/Ml 2 Ml Vial) 20 mg IV DAILY [facility] Last Admin: 07/26/21 09:43 Dose: 20 mg Documented by: Sodium Chloride (Saline 0.9%) 1,000 mls @ 5 mls/hr IV .Q24H [facility] Last Admin: 07/26/21 16:11 Dose: Not Given Documented by: Fluconazole/Sodium Chloride (200 mg/ IV Solution) 100 mls @ 100 mls/hr IVPB Q24H [facility]; Protocol Last Admin: 07/26/21 17:45 Dose: 100 mls/hr Documented by: Dextrose/Water (Dextrose 5%-Water Iv Soln) 1,000 mls @ 100 mls/hr IV .Q10H [facility] Last Admin: 07/26/21 17:45 Dose: 100 mls/hr Documented by: Lactated Ringer's (Lactated Ringers) 1,000 mls @ 20 mls/hr IV .Q24H [facility] Last Admin: 07/26/21 17:36 Dose: Not Given Documented by: Parenteral Vitamin Supplement 10 ml/ Zinc/Copper/Manganese/Selenium 1 ml/ Potassium Acetate 20 meq/ Calcium Gluconate 1 gm/ Magnesium Sulfate 1 gm/ Amino Acids/Dextrose 1,033 mls @ 30 mls/hr IV .BY DURATION [facility] Last Admin: 07/25/21 12:23 Dose: 30 mls/hr Documented by: Potassium Acetate 20 meq/Calcium Gluconate 1 gm/Magnesium Sulfate 1 gm/ Amino Acids/Dextrose 1,022 mls @ 30 mls/hr IV .BY DURATION [facility] Fat Emulsion Intravenous (Lipids 20%) 250 mls @ 20.833 mls/hr IV Sa@1200 [facility] Last Admin: 07/25/21 12:23 Dose: 20.833 mls/hr Documented by: Propofol 1,000 mg/ IV Solution 100 mls @ 2.514 mls/hr IV .Q24H [facility]; Protocol Last Titration: 07/26/21 06:36 Dose: 30 mcg/kg/min, 15.084 mls/hr Documented by: Piperacillin Sod/Tazobactam (Sod 3.375 gm/ Sodium Chloride) 100 mls @ 25 mls/hr IVPB Q8HR [facility]; Protocol Last Admin: 07/26/21 17:00 Dose: 25 mls/hr Documented by: Insulin Aspart (Insulin Aspart (Novolog) 100 Unit/Ml Vial) 0 unit SQ Q6H [facility]; Protocol Last Admin: 07/26/21 17:45 Dose: 3 unit Documented by: Insulin Detemir (Insulin Detemir (Levemir) 100 Unit/Ml Syr) 14 unit SQ DAILY@0700 [facility] Last Admin: 07/26/21 06:38 Dose: 14 unit Documented by: Methylprednisolone Sodium Succinate (Methylprednisolone Sod Succi 125 Mg/2 Ml Vial) 60 mg IV Q6HR [facility] Last Admin: 07/26/21 17:16 Dose: 60 mg Documented by: Metoclopramide HCl (Metoclopramide 5 Mg/Ml 2 Ml Vial) 10 mg IVP Q6HR [facility] Last Admin: 07/26/21 17:16 Dose: 10 mg Documented by: Miscellaneous Information (Pneumonia Protocol Utilized 1 Each Mis) 1 each PO ONCE PRN PRN Reason: Per Protocol Miscellaneous Information (Magnesium Replacement Protocol 1 Each Mis) 1 each MISCELLANE DAILY PRN; Protocol PRN Reason: Per Protocol Naloxone HCl (Naloxone 0.4 Mg/Ml 1 Ml Vial) 0.2 mg IV Q2M PRN PRN Reason: Opioid Reversal Nystatin (Nystatin 100,000 Unit/Ml Susp 500,000 Unit/5 Ml Cup) 500,000 unit PO QID [facility]; Protocol Last Admin: 07/26/21 17:16 Dose: 500,000 unit Documented by: Sodium Bicarbonate (Sodium Bicarbonate Tab 650 Mg Tab) 650 mg PO BID [facility] Last Admin: 07/26/21 09:44 Dose: 650 mg Documented by: Sodium Chloride (Sodium Chloride 0.9% Flush 10 Ml Syringe) 10 ml IV Q4HR PRN PRN Reason: PICC Line Sodium Chloride (Sodium Chloride 0.9% Flush 10 Ml Syringe) 10 ml IV WEEKLY [facility] Sodium Chloride (Sodium Chloride 0.9% Flush 10 Ml Syringe) 20 ml IV Q4HR PRN PRN Reason: PICC Line On examination: VITAL SIGNS: 97.7, 78, 24, 153.57, 90 simple ventilator GENERAL APPEARANCE: Laying in bed, intubated HEENT: Normal external appearance of nose and ear. ET tube EYES: Pupils equal. Conjunctiva normal. NECK: JVD unable to assess. Mass not palpable. RESPIRATORY: Respiratory effort increased. Decreased breath sounds CARDIOVASCULAR: First and second sounds normal. Some edema. ABDOMEN: Soft. Liver and spleen not palpable. No tenderness. No mass palpable. PSYCHIATRY: Sedated NEUROLOGICAL: Weakness in all limbs. INVESTIGATIONS, reviewed in the clinical context: July 26: White count 6.5 hemoglobin 10.5 potassium 3.9 BUN 97 creatinine 1.39 AST 56 ALT 135 July 25: White count 24.60 globin 10.5 sodium 149 potassium 4.5 BUN 114 creatinine 1.28 White count 24.5 hemoglobin 10.2 platelets 219 sodium 149 potassium 4.1 BUN 133 creatinine 1.81 AST 57 ALT 171 Assessment and plan: -Acute hypoxic respiratory failure secondary to pneumonia: Worsening. Patient extubated on July 23. Patient intubated today on July 26. -Gram-negative pneumonia suspected. Completed course of Zosyn on July 23. -Left lung mucous plug removal by bronchoscopy and removal by lavage on July 26. -Septic shock with multisystem organ failure: Better Patient's off pressor support -Oropharyngeal candidiasis Diflucan -Acute septic metabolic encephalopathy, multifactorial. -Acute hemorrhagic infarct involving the right parietal lobe 5 mm in size. Exa ct cause unclear. INR was reversed. Being followed by neurology. -Acute kidney injury, acute tubular necrosis from septic shock.: Nonoliguric Follow with nephrology. Creatinine peaked at 4.57. Now 1.28 - Metabolic acidosis secondary to acute kidney injury On bicarbonate supplement -Acute shock liver, improved -Left-sided hydronephrosis, status post left ureteral stent on 07/16/2021 Follow with urology -COPD, presently inactive -Dysphagia/aspiration. Patient failed swallow evaluation on June 24. NG tube could not be placed. -Benign essential hypertension. Currently off antihypertensive -History of pacemaker implantation. -CAD previous CABG -Valvular heart disease and mitral valve replacement acute Coumadin toxicity, treated and recovered -Thrombocytopenia secondary to sepsis, resolved, platelets are normal.: -Antibiotic associated Diarrhea, negative C. difficile colitis. -TPN and lipids ordered Intubated earlier today. Bronchoscopy with lavage today. TPN and lipids. IV Solu-Medrol. IV Diflucan. Bronchial cultures pending.
--- NOTE | 2021-07-26 22:02 | P.PN ---
Subjective Progress Note Date: 07/26/21 Principal diagnosis: Pneumonia Patient is a 71-year-old female with a past medical history significant for COPD and recent admission to [facility] for pneumonia pr esented to hospital with increasing shortness of breath and cough with a CT suspicious for left lower lobe pneumonia. The patient is status post cystoscopy and left ureteral stent placement completed on 07/16/2021, the patient went into respiratory distress evening of 07/25/2021 and got reintubated, the patient is status post bronchoscopy completed on 07/26/2021 On today's evaluation that is 07/26/2021, the patient continues to be afebrile , the patient is hemodynamically stable not requiring any pressor support the patient FiO2 is currently stable and no significant purulent secretion through the ET, diarrhea or any other changes reported by nursing staff Objective - Vital Signs Vital signs: Vital Signs Temp 97.7 F 07/26/21 08:00 Pulse 78 07/26/21 11:30 Resp 24 07/26/21 11:00 BP 126/70 07/26/21 08:00 Pulse Ox 98 07/26/21 11:00 Intake & Output 07/25/21 07/26/21 07/26/21 18:59 06:59 18:59 Intake Total 1540 1972.626 700 Output Total 1125 1200 400 Balance 415 772.626 300 Weight 83.8 kg 78.1 kg Intake: IV 1540 1950 600 .9 kvo 40 Dextrose 5% in Water 1, 1200 1300 400 000 ml @ 100 mls/hr IV . Q10H [facility] Rx#:[id number] Fat Emulsion 20% 250 ml @ 120 260 80 20.833 mls/hr IV Sa@1200 [facility] Rx#:[id number] Mvi, Adult No.4 with Vit 180 390 120 K 10 ml Trace (Conc-1Ml/ Dose) 1 ml Potassium Acetate 20 meq Calcium Gluconate 1 gm Magnesium Sulfate gm 1 gm In Amino Acid 5%-D15w 1,000 ml @ 30 mls/hr IV .BY DURATION [facility] Rx#:[id number] Intake, IV Titration 626 100 Amount Piperacillin-Tazobactam 3 100 .375 gm In Sodium Chloride 0.9% 100 ml @ 25 mls/hr IVPB Q8HR [facility] Rx# :[id number] propofoL 1,000 mg In 22.626 Empty Bag 1 bag @ 5 MCG/ KG/MIN 2.514 mls/hr IV . Q24H [facility]CLUDES [facility] Rx#:[id number] Output: Urine 1125 1200 400 Other: Voiding Method Indwelling Catheter Indwelling Catheter Indwelling Catheter ABP, PAP, CO, CI - Last Documented Arterial Blood Pressure 131/64 - Exam GENERAL DESCRIPTION: An elderly female intubated on the vent RESPIRATORY SYSTEM: Unlabored breathing , decreased breath sounds at bases HEART: S1 S2 regular rate and rhythm , ABDOMEN: Soft , no tenderness EXTREMITIES: No edema feet - Labs CBC & Chem 7: 07/26/21 04:17 07/26/21 04:17 Labs: Abnormal Lab Results - Last 24 Hours (Table) 07/25/21 07/26/21 07/26/21 Range/Units 17:51 00:17 04:17 WBC (3.8-10.6) k/uL RBC (3.80-5.40) m/uL Hgb (11.4-16.0) gm/dL Hct (34.0-46.0) % RDW (11.5-15.5) % Neutrophils # (1.3-7.7) k/uL Lymphocytes # (1.0-4.8) k/uL PT (9.0-12.0) sec INR (<1.2) APTT (22.0-30.0) sec ABG pO2 (83-108) mmHg ABG Total CO2 (19-24) mmol/L Chloride 110 H (98-107) mmol/L BUN 97 H (7-17) mg/dL Creatinine 1.39 H (0.52-1.04) mg/dL Glucose 241 H (74-99) mg/dL POC Glucose (mg/dL) 198 H 233 H (75-99) mg/dL Calcium 7.8 L (8.4-10.2) mg/dL Phosphorus 5.7 H (2.5-4.5) mg/dL Total Bilirubin 1.4 H (0.2-1.3) mg/dL AST 56 H (14-36) U/L ALT 135 H (4-34) U/L Total Protein 5.3 L (6.3-8.2) g/dL Albumin 2.4 L (3.5-5.0) g/dL 07/26/21 07/26/21 07/26/21 Range/Units 04:17 04:17 05:02 WBC 26.5 H (3.8-10.6) k/uL RBC 3.69 L (3.80-5.40) m/uL Hgb 10.5 L (11.4-16.0) gm/dL Hct 33.8 L (34.0-46.0) % RDW 17.0 H (11.5-15.5) % Neutrophils # 25.5 H (1.3-7.7) k/uL Lymphocytes # 0.2 L (1.0-4.8) k/uL PT 13.2 H (9.0-12.0) sec INR 1.3 H (<1.2) APTT 20.7 L (22.0-30.0) sec ABG pO2 77 L (83-108) mmHg ABG Total CO2 26 H (19-24) mmol/L Chloride (98-107) mmol/L BUN (7-17) mg/dL Creatinine (0.52-1.04) mg/dL Glucose (74-99) mg/dL POC Glucose (mg/dL) (75-99) mg/dL Calcium (8.4-10.2) mg/dL Phosphorus (2.5-4.5) mg/dL Total Bilirubin (0.2-1.3) mg/dL AST (14-36) U/L ALT (4-34) U/L Total Protein (6.3-8.2) g/dL Albumin (3.5-5.0) g/dL 07/26/21 Range/Units 05:31 WBC (3.8-10.6) k/uL RBC (3.80-5.40) m/uL Hgb (11.4-16.0) gm/dL Hct (34.0-46.0) % RDW (11.5-15.5) % Neutrophils # (1.3-7.7) k/uL Lymphocytes # (1.0-4.8) k/uL PT (9.0-12.0) sec INR (<1.2) APTT (22.0-30.0) sec ABG pO2 (83-108) mmHg ABG Total CO2 (19-24) mmol/L Chloride (98-107) mmol/L BUN (7-17) mg/dL Creatinine (0.52-1.04) mg/dL Glucose (74-99) mg/dL POC Glucose (mg/dL) 238 H (75-99) mg/dL Calcium (8.4-10.2) mg/dL Phosphorus (2.5-4.5) mg/dL Total Bilirubin (0.2-1.3) mg/dL AST (14-36) U/L ALT (4-34) U/L Total Protein (6.3-8.2) g/dL Albumin (3.5-5.0) g/dL Assessment and Plan (1) Pneumonia Current Visit: Yes Status: Acute Code(s): J18.9 - PNEUMONIA, UNSPECIFIED ORGANISM SNOMED Code(s): 248581741 Plan: 1patient presented to hospital with acute respiratory failure with in this patient did have hypoxemia increasing shortness of breath and cough with evidence of left lower lobe pneumonia on the CT and recently admitted and treated at [facility] and concerning for a gram-negative pneumonia sputum and bronchial culture were negative and the patient did completed a course of Zosyn. 2patient subsequently did have worsening of respiratory status requiring intubation possible mucus plugging status post bronchoscopy and repeat culture Zosyn has been restarted cultures will be followed and antibiotic adjusted if needed Time with Patient: Less than 30
[2021-07-26 23:53] LABS: Glucose,Whole Blood 207 mg/dL (75-99)
[2021-07-27] MEDS: METOCLOPRAMIDE 5 MG/ML 2 ML VIAL IVP SCH ×4 (00:09→18:06)
[2021-07-27] MEDS: methylPREDNISolone SOD SUCCI 125 MG/2 ML VIAL IV SCH ×4 (00:09→18:07)
[2021-07-27] MEDS: PIPERACILLIN-TAZOBACTAM 3.375 GM in SODIUM CHLORIDE 0.9% 100 ML IVPB SCH ×4 (00:09→22:32)
[2021-07-27] MEDS: INSULIN ASPART (NovoLOG) 100 UNIT/ML VIAL SQ SCH ×4 (00:10→18:06)
[2021-07-27] MEDS: 1: MVI, ADULT NO.4 WITH VIT K 10 ML, TRACE (CONC-1ML/DOSE) 1 ML, POTASSIUM ACETATE 20 ME IV SCH ×12 (00:10→00:21)
[2021-07-27 05:14] LABS: Anisocytosis Slight; HCT 27.3 % (34.0-46.0); Hypochromasia Slight; MCHC 31.1 g/dL (31.0-37.0); MCV 90.1 fL (80.0-100.0); Mean Platelet Volume 11.5; Platelet Count 130 k/uL (150-450); RBC 3.03 m/uL (3.80-5.40); RDW 16.8 % (11.5-15.5); WBC 22.6 k/uL (3.8-10.6)
[2021-07-27 05:30] LABS: Calcium 7.6 mg/dL (8.4-10.2); Phosphorus 3.6 mg/dL (2.5-4.5); Potassium 2.9 mmol/L (3.5-5.1); Total Bilirubin 1.3 mg/dL (0.2-1.3); Total Protein 4.6 g/dL (6.3-8.2)
[2021-07-27 05:54] LABS: HGB 8.5 gm/dL (11.4-16.0)
[2021-07-27 05:56] LABS: ABG Base Excess 1.2 mmol/L; ABG HCO3 25 mmol/L (21-25); ABG Oxygen Saturation 98.3 % (94-97); ABG PCO2 33 mmHg (35-45); ABG PH 7.49 (7.35-7.45); ABG PO2 101 mmHg (83-108); ABG TCO2 26 mmol/L (19-24); Allen Test Performed? Yes; Glucose,Whole Blood 153 mg/dL (75-99)
[2021-07-27] MEDS: DEXTROSE 5% IN WATER 1,000 ML IV SCH ×3 (06:24→16:46)
[2021-07-27] MEDS: INSULIN DETEMIR (LEVEMIR) 100 UNIT/ML SYR SQ SCH (06:26)
[2021-07-27] MEDS: SODIUM BICARBONATE TAB 650 MG TAB PO SCH ×2 (08:05→21:15)
[2021-07-27] MEDS: FUROSEMIDE 10 MG/ML 2 ML VIAL IV SCH (08:06)
[2021-07-27] MEDS: CHLORHEXIDINE GLUCONATE 15 ML CUP MUCOUS MEM SCH ×2 (08:07→21:15)
[2021-07-27] MEDS: NYSTATIN 100,000 UNIT/ML SUSP 500,000 UNIT/5 ML CUP PO SCH ×4 (08:07→22:31)
--- NOTE | 2021-07-27 08:13 | XR ---
EXAMINATION TYPE: XR chest 1V portable DATE OF EXAM: 07/27/2021 COMPARISON: 07/26/2021 HISTORY: Post bronchoscopy TECHNIQUE: Single frontal view of the chest is obtained. FINDINGS: ETT, NG tube, postsurgical change, PICC line, and cardiac device stable. Chronic rib cage deformities seen. Bilateral infiltrate and pleural effusion greater on the left stable. Heart size un changed. Atherosclerotic change aorta. Diffuse interstitial pattern. IMPRESSION: 1. Stable bilateral airspace disease and pleural effusion greater on the left correlate for pneumonia otherwise consider CHF
[2021-07-27] MEDS: IPRATROPIUM-ALBUTEROL 3 ML NEB INHALATION SCH ×5 (08:14→23:26)
[2021-07-27] MEDS: POTASSIUM CHLORIDE 20 MEQ in WATER FOR INJECTION 1 100ML.BAG IVPB SCH ×5 (09:08→16:45)
--- NOTE | 2021-07-27 09:46 | P.PN ---
Subjective Patient is seen in follow-up for acute kidney injury. Renal function improving. Nonoliguric. Intubated. Scheduled for tracheostomy and PEG tube placement today. Receiving TPN. Also on D5 W. Sodium level 140. Vital signs stable. General: Intubated. LUNGS: Breath sounds decreased. HEART: Regular rate and rhythm. ABDOMEN: Soft, no distention. EXTREMITITES: Trace edema. Objective - Vital Signs Vital signs: Vital Signs Temp 37.1 F L 07/27/21 08:00 Pulse 77 07/27/21 09:00 Resp 24 07/27/21 09:00 BP 126/70 07/26/21 08:00 Pulse Ox 97 07/27/21 09:00 Intake & Output 07/26/21 07/27/21 07/27/21 18:59 06:59 18:59 Intake Total 6356.325 6789.000 440 Output Total 1010 980 340 Balance 165.061 7838.000 100 Weight 80.8 kg Intake: IV 1430 1360 440 Dextrose 5% in Water 1, 1100 900 300 000 ml @ 100 mls/hr IV . Q10H [facility] Rx#:[id number] Mvi, Adult No.4 with Vit 330 360 90 K 10 ml Trace (Conc-1Ml/ Dose) 1 ml Potassium Acetate 20 meq Calcium Gluconate 1 gm Magnesium Sulfate gm 1 gm In Amino Acid 5%-D15w 1,000 ml @ 30 mls/hr IV .BY DURATION [facility] Rx#:[id number] Piperacillin-Tazobactam 3 100 50 .375 gm In Sodium Chloride 0.9% 100 ml @ 25 mls/hr IVPB Q8HR [facility] Rx# :[id number] Intake, IV Titration 268.540 8051.000 Amount Mvi, Adult No.4 with Vit 1033 K 10 ml Trace (Conc-1Ml/ Dose) 1 ml Potassium Acetate 20 meq Calcium Gluconate 1 gm Magnesium Sulfate gm 1 gm In Amino Acid 5%-D15w 1,000 ml @ 30 mls/hr IV .BY DURATION [facility] Rx#:[id number] Piperacillin-Tazobactam 3 100 .375 gm In Sodium Chloride 0.9% 100 ml @ 25 mls/hr IVPB Q8HR [facility] Rx# :[id number] propofoL 1,000 mg In 77.374 100.000 Empty Bag 1 bag @ 5 MCG/ KG/MIN 2.514 mls/hr IV . Q24H [facility] Rx#:[id number] Tube Feeding 50 50 Other 60 Output: Urine 1010 980 340 Other: Voiding Method Indwelling Catheter Indwelling Catheter ABP, PAP, CO, CI - Last Documented Arterial Blood Pressure 144/65 - Labs CBC & Chem 7: 07/27/21 04:45 07/27/21 04:45 Labs: Abnormal Lab Results - Last 24 Hours (Table) 07/26/21 07/26/21 07/26/21 Range/Units 13:45 17:41 23:52 WBC (3.8-10.6) k/uL RBC (3.80-5.40) m/uL Hgb (11.4-16.0) gm/dL Hct (34.0-46.0) % RDW (11.5-15.5) % Plt Count (150-450) k/uL ABG pH (7.35-7.45) ABG pCO2 (35-45) mmHg ABG Total CO2 (19-24) mmol/L ABG O2 Saturation (94-97) % Potassium (3.5-5.1) mmol/L Chloride (98-107) mmol/L BUN (7-17) mg/dL Creatinine (0.52-1.04) mg/dL Glucose (74-99) mg/dL POC Glucose (mg/dL) 210 H 239 H 207 H (75-99) mg/dL Calcium (8.4-10.2) mg/dL AST (14-36) U/L ALT (4-34) U/L Total Protein (6.3-8.2) g/dL Albumin (3.5-5.0) g/dL 07/27/21 07/27/21 07/27/21 Range/Units 04:45 04:45 05:55 WBC 22.6 H (3.8-10.6) k/uL RBC 3.03 L (3.80-5.40) m/uL Hgb 8.5 L D (11.4-16.0) gm/dL Hct 27.3 L (34.0-46.0) % RDW 16.8 H (11.5-15.5) % Plt Count 130 L (150-450) k/uL ABG pH 7.49 H (7.35-7.45) ABG pCO2 33 L (35-45) mmHg ABG Total CO2 26 H (19-24) mmol/L ABG O2 Saturation 98.3 H (94-97) % Potassium 2.9 L (3.5-5.1) mmol/L Chloride 110 H (98-107) mmol/L BUN 80 H (7-17) mg/dL Creatinine 1.19 H (0.52-1.04) mg/dL Glucose 162 H (74-99) mg/dL POC Glucose (mg/dL) (75-99) mg/dL Calcium 7.6 L (8.4-10.2) mg/dL AST 46 H (14-36) U/L ALT 100 H (4-34) U/L Total Protein 4.6 L (6.3-8.2) g/dL Albumin 2.0 L (3.5-5.0) g/dL 07/27/21 Range/Units 05:55 WBC (3.8-10.6) k/uL RBC (3.80-5.40) m/uL Hgb (11.4-16.0) gm/dL Hct (34.0-46.0) % RDW (11.5-15.5) % Plt Count (150-450) k/uL ABG pH (7.35-7.45) ABG pCO2 (35-45) mmHg ABG Total CO2 (19-24) mmol/L ABG O2 Saturation (94-97) % Potassium (3.5-5.1) mmol/L Chloride (98-107) mmol/L BUN (7-17) mg/dL Creatinine (0.52-1.04) mg/dL Glucose (74-99) mg/dL POC Glucose (mg/dL) 153 H (75-99) mg/dL Calcium (8.4-10.2) mg/dL AST (14-36) U/L ALT (4-34) U/L Total Protein (6.3-8.2) g/dL Albumin (3.5-5.0) g/dL Microbiology - Last 24 Hours (Table) 07/26/21 08:15 Gram Stain - Preliminary Bronchoalviolar Lavage - Left Bronchial Washings Culture - Preliminary 07/26/21 08:15 Fungal Culture - Preliminary Bronchoalviolar Lavage - Left 07/26/21 08:15 Acid Fast Bacilli Culture - Preliminary Bronchoalviolar Lavage - Left Assessment and Plan Plan: Assessment: 1. Acute kidney injury secondary to ATN secondary to septic shock. Creatinine was 1.78 at admission and peaked at 4.57 - 1.19 today. Nonoliguric. Unknown baseline renal function. Noted to be KELLY positive, complements low and double- stranded DNA antibody 8. Hepatitis and ANCA negative. anti-GBM negative. No monoclonality Need to rule out GN - patient has history of lupus - on steroids. Also component of obstructive uropathy - status post left ureteral stent placement this admission. With multi-organ failure as well as thrombocytopenia, there is concern for antiphospholipid syndrome. Elevated BUN due to acute kidney injury as well as steroids. 2. Septic shock secondary to pneumonia. Status post bronchoscopy. Off vasopressor support; on antibiotics. 3. Metabolic acidosis secondary to acute kidney injury and IV fluids. On oral bicarbonate. 4. Acute hypoxic respiratory failure secondary to pneumonia. Bronchial washings positive for Heidi. 5. Shock liver. Improved. 6. Hypokalemia from poor intake and diuresis. 7. Hypomagnesemia from diuresis and poor intake. Replaced. Improved. 8. Left-sided hydronephrosis. Urology following. Status post left ureteral stent placement 07/16/2021. 9. Hypernatremia from lack of oral water intake. Improved with D5W. 10. History of mitral valve repair. Plan: Decrease rate of D5W to 50 mL an hour. Maintain TPN. Maintain IV Lasix. Potassium being replaced. Scheduled for tracheostomy and PEG tube placement today. Wean FiO2. Avoid nephrotoxins. Continue to monitor renal function and urine output. On steroids. Rheumatology following. Will need kidney biopsy once hemodynamically stable for definitive diagnosis/classification of lupus nephritis. Anti-cardiolipin antibody negative. PTT normal. No DVT noted on lower extremity Dopplers.
--- NOTE | 2021-07-27 09:53 | P.PN ---
Subjective Progress Note Date: 07/27/21 Principal diagnosis: Shortness of breath. Pulmonary consult dated 07/10/2021. 69-year-old female, poor historian, who apparently was sent to the emergency department, from [facility] for pneumonia. The patient was recently also at [facility], for a pacemaker procedure. The patient complains of increasing shortness of breath, cough, congestion, and low saturations. She typically uses oxygen at 2 L/m, as needed. She is a heavy smoker in the past. She was admitted with a left lower lobe. She's currently on 6 L nasal cannula. She is not receiving any IV fluids. White count 3.6, hemoglobin 9.9, hematocrit 31.4, and platelet count 199,000. Sodium 141, potassium 4.3, chlorides 108, CO2 20, anion gap 13, BUN 35, and creatinine 1.93. Troponins were 0.[address] showed significant consolidation in the left lung base. Other findings in the other lung contreras were noted. Progress note dated 07/11/2021. 71-year-old female seen yesterday in consultation. She apparently was sent into the emergency department from [facility] for pneumonia. The patient came in complaining of shortness of breath, cough, chest congestion, and low saturations. Last night, right around midnight or so, her respiratory status worsened, and she was transferred to the intensive care unit, and placed on BiPAP. Currently, her BiPAP settings are 12/5 and 70%. She's not receiving any IV fluids. The patient is on Zosyn and azithromycin. Chest x-ray shows significant opacification of the left lung. I recommend significant chest physiotherapy. White count 12.5, hemoglobin 10.1, hematocrit 32.1, and platelet count 248,000. PT was 16 with an INR 1.6. Blood gases show pO2 of 61, pCO2 43, and pH is 7.27. This was apparently on 35% oxygen. Sodium 141, potassium 4, chlorides 112, CO2 21, BUN 42, and creatinine 1.60. Troponin 0.354. Chest x- ray shows extensive consolidation and volume loss in the left hemithorax. Progress note dated 07/12/2021. 71-year-old female again seen in room 254. The patient was admitted with a diagnosis of left-sided pneumonia. The patient developed acute respiratory failure, required transfer to the intensive care unit, and yesterday, was intubated and mechanically ventilated. The patient also had an arterial line placed, a central line placed, and did undergo bronchoscopy. She remains on mechanical ventilator, on volume assist control, rate 24, tidal volume 400, FiO2 60%, and PEEP of 10. Blood gases show a PaO2 of 223, pCO2 of 34, and a pH is 7.16. His blood gases were done on 80%. At that point, I started the patient on a sodium bicarbonate drip, with 2 ampules of sodium bicarbonate and D5W at 100 mL an hour. The patient remains on propofol at 15 mcg/kg/m and norepinephrine at 61 mcg/m. In addition, the patient is getting vital AF at 10 mL an hour. We have asked nephrology to see her. I've also asked for a cortisol level, and for her to be started on vasopressin. She is currently on Zosyn. White count 21.8, hemoglobin 10.4, hematocrit 32.6, platelet count 340,000. PTT is 28.8 with an INR of 2.9. Sodium 143, potassium 4.3, chlorides 117, CO2 13, anion gap 13, BUN 46, and creatinine 2.68. AST is 4763. ALT is 1213. Cortisol level was 55. Chest x-ray shows left greater than right airspace disease, although the findings in the left chest, are improved post intubation. Reevaluated today on 07/24/2021, patient was extubated yesterday, and so far she seems to be tolerating the extubation rather well. She is however on airvo with FiO2 of 70% and flow of 50 L/m., Patient has O2 saturation in the high 90s hence we'll titrate the FiO2 down to 60% or possibly 50% and obtaining an O2 saturation of 93% or better. Patient is hemodynamically stable, not requiring any pressors. She does have a paced rhythm, she is awake, alert, oriented, foll ows simple instructions, however she has a very weak cough. Recommended incentive spirometry at bedside, patient is scheduled to have a PICC line placed today, continues to have a left IJ central line in place today. And has been present since the of last month. Her sodium is elevated, hence the patient is on D5W at 100 mL per hour. Speech therapy to evaluate the patient today and assess his swallow evaluation, if the patient fails may consider Lasix again nasogastric tube for enteral feeding. WBC count today is 24.5 hemoglobin is 10.2. Her sodium is 149. BUN is improving creatinine is significantly improved down to 1.81 today and the patient is having good urine output. Liver enzymes have significantly improved over the last 1 week. Patient remains on Solu- Medrol, and I cut down the dose to 60 mg IV push every 8 hours. She is now off antibiotics as she received full course of treatment for presumptive pneumonia. Reevaluated today on 07/25/2021, patient remains extubated, patient was extubated 2 days ago, so far she seems to be tolerating the extubation well, however the patient remains marginal, she has a very poor cough, and she may be developing worsening left lower lobe atelectasis and consolidation based on the chest x-ray today. Patient is unable to clear secretions with her weak cough. Her chest x- ray continues to show bilateral pneumonia left more so than right, her renal functioning however is improving, and her creatinine is much better today compared to the last few days. Patient is able to follow instructions, remains profoundly weak. Her urine output seems to be excellent, in the last 24 hours, patient had 2420 in and 04/21/2004 out. Hence no plan to give the patient any Lasix at this time. She is in atrial flutter. Patient is hemodynamically stable, not requiring any pressors. She remains on airvo at 55% FiO2 and 50 L flow. O2 saturation is in the mid 90s. Multiple attempts have been made to place an orogastric tube in this patient or a nasogastric tube, and I could not place one even with a glidescope use, and direct visualization of the vocal cords, and for some reason the nasogastric tube goes into the vocal cords every time we have attempted. Could not get it into the area posterior to the vocal cords. At any rate may have to consider a PEG tube placement in this patient comes next week. Sodium remains elevated at 149, patient continues to receive D5W. Reevaluated today on 07/26/2021, patient took a downhill course early this morning around 4 AM, patient developed complete opacification of the left lung and she desaturated down. Picture of the chest x-ray was sent to me early this morning, and I recommended immediate intubation, mechanical ventilation, and I saw this patient this morning continues to have complete opacification of the left lung with ipsilateral deviation of the trachea consistent with mucous plugging of the left mainstem bronchus. Hence we'll write came in this morning, I evaluated the patient, and the first thing I did was to bronchoscope the patient cleared all the mucous plugs from the left mainstem bronchus, and I performed lavage of the left lung until completely cleared. Restarted the patient back on antibiotics to Zosyn, cultures from the BAL are pending. Patient is now again back on mechanical ventilation, and early this morning she was on assist control rate of 24th of volume 400 FiO2 100% and PEEP of 5. ABG shortly after she was intubated showed a pO2 of 77 pCO2 41 pH of 7.39. Patient is on propofol at 30 mcg/kg/m, she is on TPN at 50 mL per hour, but now that we have an orogastric tube in place, patient would have enteral feeding. Her urine output seems to be excellent. Her IV fluid is at D5W at 100 mL per hour. I recommended increasing back her Solu-Medrol, and she is active on Zosyn. I did consult Dr. paniagua as per family's request for tracheostomy evaluation, and he is apparently scheduling the patient for tracheostomy and PEG tube placement tomorrow. WBC count today is 26.5 hemoglobin is 10.5. Basic metabolic profile is normal creatinine is up a bit today up to 1.39. Patient did receive Lasix yesterday. And she had excellent urine output after the Lasix. Presently diuretics are on hold Progress note dated 07/27/2021. 71-year-old female admitted on July 09 for respiratory failure. She came to the intensive care unit on July 11, and was intubated on the same day. She was extubated on July 23, and unfortunately, was reintubated on July 26. He is currently on volume assist control, rate 24, tidal volume 400, FiO2 35%, PEEP of 5. Blood gases show pO2 of 101, pCO2 33, and a pH is 7.48. These blood gases are consistent with normoxemia and a respiratory alkalosis. The patient's getting D5W at 100 mL an hour, propofol at 20 mcg/kg/m, and TPN at 30 mL an hour. The patient will have a tracheostomy and PEG tube placement today. White count 22.6, hemoglobin 8.5, hematocrit 27.3, and platelet count 130,000. Sodium 140, potassium 2.9, chlorides 110, CO2 26, BUN 80, and creatinine 1.19. Albumin is 2.0. Chest x-rays consistent with bilateral airspace disease pleural effusion, left greater than right, and most consistent with fluid overload. Other than Heidi in the bronchial washings, microbiology has been negative. Objective - Vital Signs Vital signs: Vital Signs Temp 37.1 F L 07/27/21 08:00 Pulse 77 07/27/21 09:00 Resp 24 07/27/21 09:00 BP 126/70 07/26/21 08:00 Pulse Ox 97 07/27/21 09:00 Intake & Output 07/26/21 07/27/21 07/27/21 18:59 06:59 18:59 Intake Total 6338.830 6207.000 440 Output Total 1010 980 340 Balance 187.966 6570.000 100 Weight 80.8 kg Intake: IV 1430 1360 440 Dextrose 5% in Water 1, 1100 900 300 000 ml @ 100 mls/hr IV . Q10H [facility] Rx#:[id number] Mvi, Adult No.4 with Vit 330 360 90 K 10 ml Trace (Conc-1Ml/ Dose) 1 ml Potassium Acetate 20 meq Calcium Gluconate 1 gm Magnesium Sulfate gm 1 gm In Amino Acid 5%-D15w 1,000 ml @ 30 mls/hr IV .BY DURATION [facility] Rx#:[id number] Piperacillin-Tazobactam 3 100 50 .375 gm In Sodium Chloride 0.9% 100 ml @ 25 mls/hr IVPB Q8HR [facility] Rx# :[id number] Intake, IV Titration 869.225 7465.000 Amount Mvi, Adult No.4 with Vit 1033 K 10 ml Trace (Conc-1Ml/ Dose) 1 ml Potassium Acetate 20 meq Calcium Gluconate 1 gm Magnesium Sulfate gm 1 gm In Amino Acid 5%-D15w 1,000 ml @ 30 mls/hr IV .BY DURATION [facility] Rx#:[id number] Piperacillin-Tazobactam 3 100 .375 gm In Sodium Chloride 0.9% 100 ml @ 25 mls/hr IVPB Q8HR [facility] Rx# :[id number] propofoL 1,000 mg In 77.374 100.000 Empty Bag 1 bag @ 5 MCG/ KG/MIN 2.514 mls/hr IV . Q24H [facility] Rx#:[id number] Tube Feeding 50 50 Other 60 Output: Urine 1010 980 340 Other: Voiding Method Indwelling Catheter Indwelling Catheter ABP, PAP, CO, CI - Last Documented Arterial Blood Pressure 144/65 - Exam Currently intubated and mechanically ventilated. There is an orally placed endotracheal tube and NG tube. HEENT examination is grossly unremarkable. Neck supple. Full range of motion. No adenopathy thyromegaly or neck vein distention. Cardiovascular examination reveals regular rhythm rate. S1-S2 normal. No S3 or S4. No discernible murmur noted. Heart sounds are very distant. Heart rate 77 bpm. Lungs reveal coarse bilateral rhonchi. Basilar crackles are appreciated. No wheezes. Breath sounds are equal bilaterally. Saturations are 97%. Abdomen soft bowel sounds are not heard. No masses or tenderness. Extremities are intact. No cyanosis clubbing or edema. Skin is without rash or lesion. Neurologic examination cannot be adequately assessed as the patient currently on sedation. - Labs CBC & Chem 7: 07/27/21 04:45 07/27/21 04:45 Labs: Abnormal Lab Results - Last 24 Hours (Table) 07/26/21 07/26/21 07/26/21 Range/Units 13:45 17:41 23:52 WBC (3.8-10.6) k/uL RBC (3.80-5.40) m/uL Hgb (11.4-16.0) gm/dL Hct (34.0-46.0) % RDW (11.5-15.5) % Plt Count (150-450) k/uL ABG pH (7.35-7.45) ABG pCO2 (35-45) mmHg ABG Total CO2 (19-24) mmol/L ABG O2 Saturation (94-97) % Potassium (3.5-5.1) mmol/L Chloride (98-107) mmol/L BUN (7-17) mg/dL Creatinine (0.52-1.04) mg/dL Glucose (74-99) mg/dL POC Glucose (mg/dL) 210 H 239 H 207 H (75-99) mg/dL Calcium (8.4-10.2) mg/dL AST (14-36) U/L ALT (4-34) U/L Total Protein (6.3-8.2) g/dL Albumin (3.5-5.0) g/dL 07/27/21 07/27/21 07/27/21 Range/Units 04:45 04:45 05:55 WBC 22.6 H (3.8-10.6) k/uL RBC 3.03 L (3.80-5.40) m/uL Hgb 8.5 L D (11.4-16.0) gm/dL Hct 27.3 L (34.0-46.0) % RDW 16.8 H (11.5-15.5) % Plt Count 130 L (150-450) k/uL ABG pH 7.49 H (7.35-7.45) ABG pCO2 33 L (35-45) mmHg ABG Total CO2 26 H (19-24) mmol/L ABG O2 Saturation 98.3 H (94-97) % Potassium 2.9 L (3.5-5.1) mmol/L Chloride 110 H (98-107) mmol/L BUN 80 H (7-17) mg/dL Creatinine 1.19 H (0.52-1.04) mg/dL Glucose 162 H (74-99) mg/dL POC Glucose (mg/dL) (75-99) mg/dL Calcium 7.6 L (8.4-10.2) mg/dL AST 46 H (14-36) U/L ALT 100 H (4-34) U/L Total Protein 4.6 L (6.3-8.2) g/dL Albumin 2.0 L (3.5-5.0) g/dL 07/27/21 Range/Units 05:55 WBC (3.8-10.6) k/uL RBC (3.80-5.40) m/uL Hgb (11.4-16.0) gm/dL Hct (34.0-46.0) % RDW (11.5-15.5) % Plt Count (150-450) k/uL ABG pH (7.35-7.45) ABG pCO2 (35-45) mmHg ABG Total CO2 (19-24) mmol/L ABG O2 Saturation (94-97) % Potassium (3.5-5.1) mmol/L Chloride (98-107) mmol/L BUN (7-17) mg/dL Creatinine (0.52-1.04) mg/dL Glucose (74-99) mg/dL POC Glucose (mg/dL) 153 H (75-99) mg/dL Calcium (8.4-10.2) mg/dL AST (14-36) U/L ALT (4-34) U/L Total Protein (6.3-8.2) g/dL Albumin (3.5-5.0) g/dL Microbiology - Last 24 Hours (Table) 07/26/21 08:15 Gram Stain - Preliminary Bronchoalviolar Lavage - Left Bronchial Washings Culture - Preliminary 07/26/21 08:15 Fungal Culture - Preliminary Bronchoalviolar Lavage - Left 07/26/21 08:15 Acid Fast Bacilli Culture - Preliminary Bronchoalviolar Lavage - Left Assessment and Plan Assessment: Acute hypoxemic respiratory failure secondary to left lower lobe pneumonia, status post intubation and mechanical ventilation as well as bronchoscopy on 07/11/2021, extubation on 07/23/2021, and reintubation on 07/26/2021. Septic shock, with multiorgan system failure. 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 Anticipated tracheostomy PEG tube placement today, 07/27/2021. CAD, status post bypass grafting. Acute hypoxemic respiratory failure secondary to pneumonia and COPD. History of COPD from previous significant tobacco use. History of hypertension. History of hyperlipidemia. Status post pacemaker implantation. Vague history of CHF. Plan: Plan dated 07/10/2021. Currently, the patient's on azithromycin and Zosyn. The patient is also getting any treatments with albuterol sulfate and ipratropium bromide. We will continue to follow make recommendations were appropriate. Prognosis is certainly guarded. The CAT scan, x-rays, and medications are all reviewed. The patient should have outpatient evaluation of her chronic lung disease once she is better and is discharged. Infectious disease should see this patient. Plan dated 07/11/2021. The patient was transferred to the intensive care unit for further monitoring and management. She was transferred sometime after midnight. She remains on BiPAP. Saturations are reasonable. Chest x-ray shows near complete opacification of the left lung. We recommend the right lung to be down, and significant chest physiotherapy to the left lung. Additional recommendations and suggestions are forthcoming. Labs, x-rays, and medications are reviewed. We'll continue to follow. Plan dated 07/12/2021. The patient was intubated and mechanically ventilated yesterday, 07/11/2021. In addition, an arterial line was placed, as well as a central line, and the patient underwent bronchoscopy. Currently everything is pending. The patient remains on the mechanical ventilator. She is on propofol at 15 mcg/kg/m, and norepinephrine at 61 mcg/m. I'm going to add vasopressin to her regimen. Will have nephrology see her for her worsening renal function and poor urine output. Cortisol level was adequate. She remains on Zosyn as per infectious diseases. I did have a very long conversation with her daughter. I explained to the daughter that we are giving her best supportive care. The patient remains a full code at this time. Plan dated 07/27/2021. The patient will undergo tracheostomy and PEG tube placement today. Was started on enteral nutrition. Blood gases show a respiratory alkalosis. No ventilator changes. We'll make sure the patient's on DuoNeb every 4 hours [id number]. Continue GI and DVT prophylaxis. Zosyn was started empirically. No additional recommendations are made. Prognosis is guarded. The patient remains on fluconazole. Labs, x-rays, and medications are all re viewed. Prognosis is guarded. We'll continue to follow the patient and make recommendations where appropriate. Time with Patient: Greater than 30
[2021-07-27 12:35] LABS: Glucose,Whole Blood 154 mg/dL (75-99)
--- NOTE | 2021-07-27 14:44 | P.PN ---
Progress Note - Text Progress Note Date: 07/27/21 Patient remains on the ventilator. Hemodynamically she is stable. Her daughter is present at the bedside. We discussed the tracheostomy and PEG tube placement procedures in detail. Risks of bleeding, infection, poor healing, wound formation, fistula, bowel injury, pneumothorax, pneumomediastinum, . She understands and wishes to proceed.
[2021-07-27] MEDS: SODIUM CHLORIDE 0.9% 1,000 ML IV SCH (15:05)
--- NOTE | 2021-07-27 15:09 | P.PN ---
Subjective Progress Note Date: 07/27/21 I am following-up with patient and was last seen by me on 07/17/2021. Please refer to Dr. Forbes's notes since was being followed by him since I seen her last. Per the nurse, the patient is scheduled to have PEG and Trach placed today. She is currently on IV Propofol 20mcg/kg/min. Dr. Forbes recommend repeat CT head tomorrow and if negative to be started on anticoagulation from neurological perspective. Objective - Vital Signs Vital signs: Vital Signs Temp 98.1 F 07/27/21 12:00 Pulse 81 07/27/21 13:00 Resp 24 07/27/21 13:00 BP 126/70 07/26/21 08:00 Pulse Ox 98 07/27/21 13:00 Intake & Output 07/26/21 07/27/21 07/27/21 18:59 06:59 18:59 Intake Total 9074.727 7368.000 956.872 Output Total 6118 462 6945 Balance 468.324 1994.000 -128.128 Weight 80.8 kg 80.8 kg Intake: IV 1430 1360 890 Dextrose 5% in Water 1, 1100 900 550 000 ml @ 50 mls/hr IV . Q20H [facility] Rx#:[id number] Mvi, Adult No.4 with Vit 330 360 240 K 10 ml Trace (Conc-1Ml/ Dose) 1 ml Potassium Acetate 20 meq Calcium Gluconate 1 gm Magnesium Sulfate gm 1 gm In Amino Acid 5%-D15w 1,000 ml @ 30 mls/hr IV .BY DURATION [facility] Rx#:[id number] Piperacillin-Tazobactam 3 100 100 .375 gm In Sodium Chloride 0.9% 100 ml @ 25 mls/hr IVPB Q8HR [facility] Rx# :[id number] Intake, IV Titration 238.302 5842.000 66.872 Amount Mvi, Adult No.4 with Vit 1033 K 10 ml Trace (Conc-1Ml/ Dose) 1 ml Potassium Acetate 20 meq Calcium Gluconate 1 gm Magnesium Sulfate gm 1 gm In Amino Acid 5%-D15w 1,000 ml @ 30 mls/hr IV .BY DURATION [facility] Rx#:[id number] Piperacillin-Tazobactam 3 100 .375 gm In Sodium Chloride 0.9% 100 ml @ 25 mls/hr IVPB Q8HR [facility] Rx# :[id number] propofoL 1,000 mg In 77.374 100.000 66.872 Empty Bag 1 bag @ 5 MCG/ KG/MIN 2.514 mls/hr IV . Q24H [facility] Rx#:[id number] Tube Feeding 50 50 Other 60 Output: Urine 8934 800 2011 Other: Voiding Method Indwelling Catheter Indwelling Catheter Indwelling Catheter ABP, PAP, CO, CI - Last Documented Arterial Blood Pressure 148/65 - Exam GENERAL: The patient is lying in bed and does not appear in acute distress. LUNG: Intubated on ventilator. NEUROLOGICAL: Is on IV Propofol 20mcg/kg/min. Higher mental function: The patient is comatose. GCS 5 (E3, VT1, M1). Would open her eyes to voice but does not follow commands. Cranial nerves: The pupils are round, equal, about 4-5mm bilaterally and reactive to light. No facial weakness. Motor: The strength is limited but no movement noted to . No spontaneous movement noted. Cerebellum: Unable to assess. Sensation: Unable to assess light touch but to painful stimuli not withdrawing or no reaction to it. Plantars are mute bilaterally. SOME OF THE WORK-UP: Ammonia level <9 Creatning on initial presentation is 1.78-->1.19 AST: 23-->400-->522-->46 ALT 9-->1800-->889-->100 KELLY is positive Double strand DNA ab Indeterminate, complement C3: 20 and c4:2.0 C-ANCA and P-ANCA are negative. Latest Computed tomography scan of head 07/21/2021 revealed unchanged right posterior parietal subcortical white matter focus measuring 6 mm, likely representing small intraparenchymal hemorrhage. No additional evidence for new acute hemorrhage. She had two repeated CT head at 8pm on 07/15/2021 and today around 9ish am and no change. EEG on 07/15/2021: This is an abnormal routine EEG. The background slowing is suggestive of severe encephalopathy. The triphasic wave are suggestive of li gonzalez toxic-metabolic etiology. Otherwise there is no focal slowing, epileptiform discharge or seizure on the EEG. EEG on 07/16/2021: This is an abnormal routine EEG. The background slowing is suggestive of severe encephalopathy. The triphasic wave are suggestive of likely toxic-metabolic etiology. Otherwise there is no focal slowing, epileptiform discharge or seizure on the EEG. Compared to the EEG from the prior day (07/15/2021), there is no change. - Labs CBC & Chem 7: 07/27/21 04:45 07/27/21 04:45 Labs: Abnormal Lab Results - Last 24 Hours (Table) 07/26/21 07/26/21 07/26/21 Range/Units 08:15 17:41 23:52 WBC (3.8-10.6) k/uL RBC (3.80-5.40) m/uL Hgb (11.4-16.0) gm/dL Hct (34.0-46.0) % RDW (11.5-15.5) % Plt Count (150-450) k/uL ABG pH (7.35-7.45) ABG pCO2 (35-45) mmHg ABG Total CO2 (19-24) mmol/L ABG O2 Saturation (94-97) % Potassium (3.5-5.1) mmol/L Chloride (98-107) mmol/L BUN (7-17) mg/dL Creatinine (0.52-1.04) mg/dL Glucose (74-99) mg/dL POC Glucose (mg/dL) 239 H 207 H (75-99) mg/dL Calcium (8.4-10.2) mg/dL AST (14-36) U/L ALT (4-34) U/L Total Protein (6.3-8.2) g/dL Albumin (3.5-5.0) g/dL Viral Test See Below A 07/27/21 07/27/21 07/27/21 Range/Units 04:45 04:45 05:55 WBC 22.6 H (3.8-10.6) k/uL RBC 3.03 L (3.80-5.40) m/uL Hgb 8.5 L D (11.4-16.0) gm/dL Hct 27.3 L (34.0-46.0) % RDW 16.8 H (11.5-15.5) % Plt Count 130 L (150-450) k/uL ABG pH 7.49 H (7.35-7.45) ABG pCO2 33 L (35-45) mmHg ABG Total CO2 26 H (19-24) mmol/L ABG O2 Saturation 98.3 H (94-97) % Potassium 2.9 L (3.5-5.1) mmol/L Chloride 110 H (98-107) mmol/L BUN 80 H (7-17) mg/dL Creatinine 1.19 H (0.52-1.04) mg/dL Glucose 162 H (74-99) mg/dL POC Glucose (mg/dL) (75-99) mg/dL Calcium 7.6 L (8.4-10.2) mg/dL AST 46 H (14-36) U/L ALT 100 H (4-34) U/L Total Protein 4.6 L (6.3-8.2) g/dL Albumin 2.0 L (3.5-5.0) g/dL Viral Test 07/27/21 07/27/21 Range/Units 05:55 12:33 WBC (3.8-10.6) k/uL RBC (3.80-5.40) m/uL Hgb (11.4-16.0) gm/dL Hct (34.0-46.0) % RDW (11.5-15.5) % Plt Count (150-450) k/uL ABG pH (7.35-7.45) ABG pCO2 (35-45) mmHg ABG Total CO2 (19-24) mmol/L ABG O2 Saturation (94-97) % Potassium (3.5-5.1) mmol/L Chloride (98-107) mmol/L BUN (7-17) mg/dL Creatinine (0.52-1.04) mg/dL Glucose (74-99) mg/dL POC Glucose (mg/dL) 153 H 154 H (75-99) mg/dL Calcium (8.4-10.2) mg/dL AST (14-36) U/L ALT (4-34) U/L Total Protein (6.3-8.2) g/dL Albumin (3.5-5.0) g/dL Viral Test Microbiology - Last 24 Hours (Table) 07/17/21 10:00 Acid Fast Bacilli Smear - Final Bronchial Washings - Random Acid Fast Bacilli Culture - Preliminary 07/11/21 12:45 Acid Fast Bacilli Smear - Final Bronchial Washings - Left Acid Fast Bacilli Culture - Preliminary 07/26/21 08:15 Gram Stain - Preliminary Bronchoalviolar Lavage - Left Bronchial Washings Culture - Preliminary 07/26/21 08:15 Fungal Culture - Preliminary Bronchoalviolar Lavage - Left 07/26/21 08:15 Acid Fast Bacilli Culture - Preliminary Bronchoalviolar Lavage - Left Assessment and Plan Assessment: Acute small Hemorrhagic stroke over the right parietal: Unsure cause. Possibly could be due to episode of supratherapeutic INR (was as steve as 6.4 that she received reversal on 07/13 and currently 1.5). 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 Also medication effect (IV Propofol). Septic shock with multisystem organ failure History of Lupus for years Acute kidney injury--improving Acute hypoxic respiratory failure due to left lung pneumonia indicating Heidi albicans Acute shock liver-trending down Acute Coumadin toxicity that received reversal improved and INR is subtherapeutic History of coronary artery disease status post the CABG s/p Pacemaker on coumadin Valvular heart surgery Hypertension Hyperlipidemia Plan: Computed tomography scan of head 07/21/2021 revealed unchanged right posterior parietal subcortical white matter focus measuring 6 mm, likely representing small intraparenchymal hemorrhage. No additional evidence for new acute hemorrhage. Based upon continued presence of intracranial hemorrhage, would continue to hold off on anticoagulation. Per Dr. Forbes: Recommends repeating CT head on 07/28/2021 and If resolved, may start anticoagulation. However if the hemorrhage remains unchanged, anticoagulation could still be started cautiously. He discussed this with the patient's daughter. Today patient is scheduled to have PEG and Trach placement. Nephrology team is on board. Will defer the rest of medical management to the primary and ICU team. The plan is discussed with her nurse. Tremaine Mcguire M.D. Neuro-hospitalist Time with Patient: Less than 30
[2021-07-27] MEDS ORDERED: ROCURONIUM 10 MG/ML (5 ML VIAL) IV ONE (15:25)
[2021-07-27] MEDS ORDERED: fentaNYL (PF) 50 MCG/ML 2 ML AMP ONE (15:25)
[2021-07-27] MEDS: LACTATED RINGERS 1,000 ML IV SCH (15:34)
[2021-07-27] MEDS ORDERED: BUPIVACAIN-EPI 0.25%-1:200,000 30 ML VIAL SQ ONE (15:49)
--- NOTE | 2021-07-27 16:33 | P.OP ---
Date of Procedure: 07/27/21 Procedure(s) Performed: PREOPERATIVE DIAGNOSIS: Respiratory failure, malnutrition POSTOPERATIVE DIAGNOSIS: Same PROCEDURE: Tracheostomy, EGD with PEG tube placement SURGEON: Pb EBL: Minimal ANESTHESIA: General COMPLICATIONS: None OPERATIVE PROCEDURE: Patient was placed in the operative table in the supine position. A shoulder roll was utilized. The neck was prepped and draped in usual sterile fashion. The skin was infiltrated with local anesthesia. A small cervical incision was created using the scalpel. Dissection through the subcutaneous fat and platysma layer took place using electrocautery. A small vein on the left hand side was ligated using 3-0 silk ties The underlying strap muscles were divided in the midline. The thyroid isthmus was divided using electrocautery as well. No bleeding was seen. The trachea was easily identified at this time. The endotracheal tube was advanced and the balloon was reinflated. The patient was preoxygenated with 100% FiO2. The FiO2 was then brought down to room air. Once the end title oxygen level was less than 35 a vertical tracheostomy was created using the electrocautery. This went through the second and third tracheal ring. The patient was again preoxygenated with 100% FiO2. The inspector plumbing was utilized. Carefully the endotracheal tube was withdrawn just proximal to our tracheostomy. The 6-Hebrew Shiley nonfenestrated tracheostomy catheter was advanced under direct visualization into the trachea. This was then connected to the ventilator. Positive end tidal CO2 was confirmed. The tracheal ties were utilized. The trach was sutured to the skin superiorly using 2 separate 0 silk sutures. The skin was closed using 3-0 Vicr yl sutures. A dressing was applied. The patient was kept in the supine position on the operating room table. The Olympus gastroscope was inserted into the oropharynx and passed under direct visualization to the region of the duodenum. No obstruction was seen. The pylorus was widely patent. The stomach was carefully inspected. The stomach was fully insufflated with air. The abdominal wall was inspected. The light was seen shining through the abdominal wall in the left upper quadrant. This site was chosen for PEG tube placement. The area was prepped in the usual sterile fashion. A small vertical incision was made using the scalpel. The Seldinger needle was advanced into the lumen of the stomach the wire was advanced. The wire was grasped with an endoscopic snare. The wire was pulled through the oropharynx. The catheter was then threaded over the guidewire and the guidewire and catheter were pulled anteriorly until the hub of the PEG tube catheter was seated against the anterior wall the stomach. The circular bolster was applied and tightened down. The endoscope was then readvanced into the stomach. There was no evidence of any bleeding and there was appropriate tig htness on the bolster. The catheter was cut appropriately. The dual port feeding adapter was applied. DISPOSITION: Stable to ICU
[2021-07-27 17:54] LABS: Glucose,Whole Blood 142 mg/dL (75-99)
[2021-07-27 20:59] LABS: Calcium 7.6 mg/dL (8.4-10.2); Potassium 4.3 mmol/L (3.5-5.1)
[2021-07-27] MEDS: FLUCONAZOLE IN NACL,ISO-OSM 200 MG in SALINE 1 100ML.BAG IVPB SCH (21:15)
--- NOTE | 2021-07-27 21:22 | P.PN ---
Subjective Progress Note Date: 07/27/21 Principal diagnosis: Pneumonia Patient is a 71-year-old female with a past medical history significant for COPD and recent admission to [facility] for pneumonia pr esented to hospital with increasing shortness of breath and cough with a CT suspicious for left lower lobe pneumonia. The patient is status post cystoscopy and left ureteral stent placement completed on 07/16/2021, the patient went into respiratory distress evening of 07/25/2021 and got reintubated, the patient is status post bronchoscopy completed on 07/26/2021, patient is scheduled for a trach and PEG 07/27/2021 On today's evaluation that is 07/27/2021, the patient remains to be afebrile , the patient is hemodynamically stable not requiring any pressor support the patient FiO2 is currently stable at 35%, no significant purulent secretion through the ET, diarrhea or any other changes reported by nursing staff Objective - Vital Signs Vital signs: Vital Signs Temp 98.8 F 07/27/21 08:00 Pulse 78 07/27/21 11:00 Resp 24 07/27/21 11:00 BP 126/70 07/26/21 08:00 Pulse Ox 98 07/27/21 11:00 Intake & Output 07/26/21 07/27/21 07/27/21 18:59 06:59 18:59 Intake Total 2318.725 3389.000 545 Output Total 1010 980 590 Balance 638.368 4740.000 -45 Weight 80.8 kg Intake: IV 1430 1360 545 Dextrose 5% in Water 1, 1100 900 350 000 ml @ 50 mls/hr IV . Q20H [facility] Rx#:[id number] Mvi, Adult No.4 with Vit 330 360 120 K 10 ml Trace (Conc-1Ml/ Dose) 1 ml Potassium Acetate 20 meq Calcium Gluconate 1 gm Magnesium Sulfate gm 1 gm In Amino Acid 5%-D15w 1,000 ml @ 30 mls/hr IV .BY DURATION [facility] Rx#:[id number] Piperacillin-Tazobactam 3 100 75 .375 gm In Sodium Chloride 0.9% 100 ml @ 25 mls/hr IVPB Q8HR [facility] Rx# :[id number] Intake, IV Titration 918.422 8652.000 Amount Mvi, Adult No.4 with Vit 1033 K 10 ml Trace (Conc-1Ml/ Dose) 1 ml Potassium Acetate 20 meq Calcium Gluconate 1 gm Magnesium Sulfate gm 1 gm In Amino Acid 5%-D15w 1,000 ml @ 30 mls/hr IV .BY DURATION [facility] Rx#:[id number] Piperacillin-Tazobactam 3 100 .375 gm In Sodium Chloride 0.9% 100 ml @ 25 mls/hr IVPB Q8HR [facility] Rx# :[id number] propofoL 1,000 mg In 77.374 100.000 Empty Bag 1 bag @ 5 MCG/ KG/MIN 2.514 mls/hr IV . Q24H [facility] Rx#:[id number] Tube Feeding 50 50 Other 60 Output: Urine 1010 980 590 Other: Voiding Method Indwelling Catheter Indwelling Catheter Indwelling Catheter ABP, PAP, CO, CI - Last Documented Arterial Blood Pressure 138/63 - Exam GENERAL DESCRIPTION: An elderly female intubated on the vent RESPIRATORY SYSTEM: Unlabored breathing , decreased breath sounds at bases HEART: S1 S2 regular rate and rhythm , ABDOMEN: Soft , no tenderness EXTREMITIES: No edema feet - Labs CBC & Chem 7: 07/27/21 04:45 07/27/21 20:35 Labs: Abnormal Lab Results - Last 24 Hours (Table) 07/26/21 07/26/21 07/26/21 Range/Units 13:45 17:41 23:52 WBC (3.8-10.6) k/uL RBC (3.80-5.40) m/uL Hgb (11.4-16.0) gm/dL Hct (34.0-46.0) % RDW (11.5-15.5) % Plt Count (150-450) k/uL ABG pH (7.35-7.45) ABG pCO2 (35-45) mmHg ABG Total CO2 (19-24) mmol/L ABG O2 Saturation (94-97) % Potassium (3.5-5.1) mmol/L Chloride (98-107) mmol/L BUN (7-17) mg/dL Creatinine (0.52-1.04) mg/dL Glucose (74-99) mg/dL POC Glucose (mg/dL) 210 H 239 H 207 H (75-99) mg/dL Calcium (8.4-10.2) mg/dL AST (14-36) U/L ALT (4-34) U/L Total Protein (6.3-8.2) g/dL Albumin (3.5-5.0) g/dL 07/27/21 07/27/21 07/27/21 Range/Units 04:45 04:45 05:55 WBC 22.6 H (3.8-10.6) k/uL RBC 3.03 L (3.80-5.40) m/uL Hgb 8.5 L D (11.4-16.0) gm/dL Hct 27.3 L (34.0-46.0) % RDW 16.8 H (11.5-15.5) % Plt Count 130 L (150-450) k/uL ABG pH 7.49 H (7.35-7.45) ABG pCO2 33 L (35-45) mmHg ABG Total CO2 26 H (19-24) mmol/L ABG O2 Saturation 98.3 H (94-97) % Potassium 2.9 L (3.5-5.1) mmol/L Chloride 110 H (98-107) mmol/L BUN 80 H (7-17) mg/dL Creatinine 1.19 H (0.52-1.04) mg/dL Glucose 162 H (74-99) mg/dL POC Glucose (mg/dL) (75-99) mg/dL Calcium 7.6 L (8.4-10.2) mg/dL AST 46 H (14-36) U/L ALT 100 H (4-34) U/L Total Protein 4.6 L (6.3-8.2) g/dL Albumin 2.0 L (3.5-5.0) g/dL 07/27/21 Range/Units 05:55 WBC (3.8-10.6) k/uL RBC (3.80-5.40) m/uL Hgb (11.4-16.0) gm/dL Hct (34.0-46.0) % RDW (11.5-15.5) % Plt Count (150-450) k/uL ABG pH (7.35-7.45) ABG pCO2 (35-45) mmHg ABG Total CO2 (19-24) mmol/L ABG O2 Saturation (94-97) % Potassium (3.5-5.1) mmol/L Chloride (98-107) mmol/L BUN (7-17) mg/dL Creatinine (0.52-1.04) mg/dL Glucose (74-99) mg/dL POC Glucose (mg/dL) 153 H (75-99) mg/dL Calcium (8.4-10.2) mg/dL AST (14-36) U/L ALT (4-34) U/L Total Protein (6.3-8.2) g/dL Albumin (3.5-5.0) g/dL Microbiology - Last 24 Hours (Table) 07/26/21 08:15 Gram Stain - Preliminary Bronchoalviolar Lavage - Left Bronchial Washings Culture - Preliminary 07/26/21 08:15 Fungal Culture - Preliminary Bronchoalviolar Lavage - Left 07/26/21 08:15 Acid Fast Bacilli Culture - Preliminary Bronchoalviolar Lavage - Left Assessment and Plan (1) Pneumonia Current Visit: Yes Status: Acute Code(s): J18.9 - PNEUMONIA, UNSPECIFIED ORGANISM SNOMED Code(s): 509587098 Plan: 1patient presented to hospital with acute respiratory failure with in this patient did have hypoxemia increasing shortness of breath and cough with evidence of left lower lobe pneumonia on the CT and recently admitted and treated at [facility] and concerning for a gram-negative pneumonia spu liz and bronchial culture were negative and the patient did completed a course of Zosyn. 2patient subsequently did have worsening of respiratory status requiring intubation possible mucus plugging status post bronchoscopy and repeat culture which are currently pending, patient to continue with Zosyn while waiting for the cultures to finalize Time with Patient: Less than 30
[2021-07-28 01:03] LABS: Glucose,Whole Blood 162 mg/dL (75-99)
[2021-07-28] MEDS: METOCLOPRAMIDE 5 MG/ML 2 ML VIAL IVP SCH ×4 (01:10→17:11)
[2021-07-28] MEDS: methylPREDNISolone SOD SUCCI 125 MG/2 ML VIAL IV SCH ×4 (01:10→17:11)
[2021-07-28] MEDS: INSULIN ASPART (NovoLOG) 100 UNIT/ML VIAL SQ SCH ×4 (01:10→17:34)
[2021-07-28] MEDS: IPRATROPIUM-ALBUTEROL 3 ML NEB INHALATION SCH ×5 (03:22→20:25)
[2021-07-28 05:53] LABS: ABG Base Excess 0.2 mmol/L; ABG HCO3 24 mmol/L (21-25); ABG Oxygen Saturation 98.4 % (94-97); ABG PCO2 31 mmHg (35-45); ABG PH 7.49 (7.35-7.45); ABG PO2 115 mmHg (83-108); ABG TCO2 24 mmol/L (19-24); Allen Test Performed? Yes
[2021-07-28 06:37] LABS: Glucose,Whole Blood 224 mg/dL (75-99)
[2021-07-28 07:02] LABS: Anisocytosis Slight; Calcium 7.5 mg/dL (8.4-10.2); HCT 26.8 % (34.0-46.0); HGB 8.6 gm/dL (11.4-16.0); Hypochromasia Slight; MCHC 32.3 g/dL (31.0-37.0); MCV 89.9 fL (80.0-100.0); Magnesium 1.9 mg/dL (1.6-2.3); Mean Platelet Volume 12.3; Phosphorus 3.7 mg/dL (2.5-4.5); Platelet Count 129 k/uL (150-450); Potassium 4.1 mmol/L (3.5-5.1); RBC 2.98 m/uL (3.80-5.40); RDW 17.4 % (11.5-15.5); Total Bilirubin 1.9 mg/dL (0.2-1.3); Total Protein 4.8 g/dL (6.3-8.2); WBC 20.7 k/uL (3.8-10.6)
[2021-07-28] MEDS: INSULIN DETEMIR (LEVEMIR) 100 UNIT/ML SYR SQ SCH (07:02)
[2021-07-28] MEDS: FUROSEMIDE 10 MG/ML 2 ML VIAL IV SCH (08:02)
[2021-07-28] MEDS: NYSTATIN 100,000 UNIT/ML SUSP 500,000 UNIT/5 ML CUP PO SCH ×4 (08:02→21:00)
[2021-07-28] MEDS: CHLORHEXIDINE GLUCONATE 15 ML CUP MUCOUS MEM SCH ×2 (08:02→21:02)
[2021-07-28] MEDS: PIPERACILLIN-TAZOBACTAM 3.375 GM in SODIUM CHLORIDE 0.9% 100 ML IVPB SCH ×2 (08:03→15:11)
[2021-07-28] MEDS: SODIUM BICARBONATE TAB 650 MG TAB PO SCH ×2 (08:07→21:00)
--- NOTE | 2021-07-28 08:38 | XR ---
EXAMINATION TYPE: XR chest 1V portable DATE OF EXAM: 07/28/2021 COMPARISON: 07/27/2021 HISTORY: Tube placement TECHNIQUE: Single frontal view of the chest is obtained. FINDINGS: Right-sided central line is seen and there is a tracheostomy tube with tip approximately 5 cm above the nicho. NG tube is been removed. Cardiac device and postsurgical changes are noted. Chr onic rib cage deformity noted. Diffuse interstitial pattern with bilateral infiltrate and small effus ion. Suggestion of possible catheter or ureteral stent noted on the left. IMPRESSION: Bilateral interstitial pattern with lower lobe infiltrate and pleural effusion stable fr om previous exam.
--- NOTE | 2021-07-28 09:30 | P.PN ---
Subjective Patient is seen in follow-up for acute kidney injury. Renal function improving. Nonoliguric. Underwent tracheostomy and PEG tube placement 07/27/2021. Receiving tube feeds. Also on D5 W. Sodium level 138. Vital signs stable. General: Intubated. Tracheostomy noted. LUNGS: Breath sounds decreased. HEART: Regular rate and rhythm. ABDOMEN: Soft, no distention. EXTREMITITES: 1+ edema. Objective - Vital Signs Vital signs: Vital Signs Temp 97.8 F 07/28/21 08:00 Pulse 77 07/28/21 09:00 Resp 30 H 07/28/21 09:00 BP 126/70 07/26/21 08:00 Pulse Ox 96 07/28/21 09:00 Intake & Output 07/27/21 07/28/21 07/28/21 18:59 06:59 18:59 Intake Total 8273.184 3532 295.28 Output Total 1465 815 250 Balance -137.345 345 45.28 Weight 80.8 kg 81.9 kg Intake: IV 1210 1060 240 Dextrose 5% in Water 1, 750 600 150 000 ml @ 50 mls/hr IV . Q20H [facility] Rx#:[id number] Mvi, Adult No.4 with Vit 360 360 90 K 10 ml Trace (Conc-1Ml/ Dose) 1 ml Potassium Acetate 20 meq Calcium Gluconate 1 gm Magnesium Sulfate gm 1 gm In Amino Acid 5%-D15w 1,000 ml @ 30 mls/hr IV .BY DURATION [facility] Rx#:[id number] Piperacillin-Tazobactam 3 100 .375 gm In Sodium Chloride 0.9% 100 ml @ 25 mls/hr IVPB Q8HR [facility] Rx# :[id number] Piperacillin-Tazobactam 3 100 .375 gm In Sodium Chloride 0.9% 100 ml @ 25 mls/hr IVPB Q8HR [facility] Rx# :[id number] Intake, IV Titration 117.655 100 35.28 Amount propofoL 1,000 mg In 117.655 100 35.28 Empty Bag 1 bag @ 5 MCG/ KG/MIN 2.514 mls/hr IV . Q24H [facility] Rx#:[id number] Tube Feeding 20 Output: Urine 1455 815 250 Estimated Blood Loss 10 Other: Voiding Method Indwelling Catheter Indwelling Catheter Indwelling Catheter # Voids 90 ABP, PAP, CO, CI - Last Documented Arterial Blood Pressure 161/75 - Labs CBC & Chem 7: 07/28/21 06:20 07/28/21 06:20 Labs: Abnormal Lab Results - Last 24 Hours (Table) 07/26/21 07/27/21 07/27/21 Range/Units 08:15 12:33 17:52 WBC (3.8-10.6) k/uL RBC (3.80-5.40) m/uL Hgb (11.4-16.0) gm/dL Hct (34.0-46.0) % RDW (11.5-15.5) % Plt Count (150-450) k/uL ABG pH (7.35-7.45) ABG pCO2 (35-45) mmHg ABG pO2 (83-108) mmHg ABG O2 Saturation (94-97) % Chloride (98-107) mmol/L BUN (7-17) mg/dL Creatinine (0.52-1.04) mg/dL Glucose (74-99) mg/dL POC Glucose (mg/dL) 154 H 142 H (75-99) mg/dL Calcium (8.4-10.2) mg/dL Total Bilirubin (0.2-1.3) mg/dL AST (14-36) U/L ALT (4-34) U/L Total Protein (6.3-8.2) g/dL Albumin (3.5-5.0) g/dL Viral Test See Below A 07/27/21 07/28/21 07/28/21 Range/Units 20:35 01:01 05:50 WBC (3.8-10.6) k/uL RBC (3.80-5.40) m/uL Hgb (11.4-16.0) gm/dL Hct (34.0-46.0) % RDW (11.5-15.5) % Plt Count (150-450) k/uL ABG pH 7.49 H (7.35-7.45) ABG pCO2 31 L (35-45) mmHg ABG pO2 115 H (83-108) mmHg ABG O2 Saturation 98.4 H (94-97) % Chloride 109 H (98-107) mmol/L BUN 72 H (7-17) mg/dL Creatinine 1.05 H (0.52-1.04) mg/dL Glucose 151 H (74-99) mg/dL POC Glucose (mg/dL) 162 H (75-99) mg/dL Calcium 7.6 L (8.4-10.2) mg/dL Total Bilirubin (0.2-1.3) mg/dL AST (14-36) U/L ALT (4-34) U/L Total Protein (6.3-8.2) g/dL Albumin (3.5-5.0) g/dL Viral Test 07/28/21 07/28/21 07/28/21 Range/Units 06:20 06:20 06:36 WBC 20.7 H (3.8-10.6) k/uL RBC 2.98 L (3.80-5.40) m/uL Hgb 8.6 L (11.4-16.0) gm/dL Hct 26.8 L (34.0-46.0) % RDW 17.4 H (11.5-15.5) % Plt Count 129 L (150-450) k/uL ABG pH (7.35-7.45) ABG pCO2 (35-45) mmHg ABG pO2 (83-108) mmHg ABG O2 Saturation (94-97) % Chloride 109 H (98-107) mmol/L BUN 68 H (7-17) mg/dL Creatinine (0.52-1.04) mg/dL Glucose 214 H (74-99) mg/dL POC Glucose (mg/dL) 224 H (75-99) mg/dL Calcium 7.5 L (8.4-10.2) mg/dL Total Bilirubin 1.9 H (0.2-1.3) mg/dL AST 66 H (14-36) U/L ALT 104 H (4-34) U/L Total Protein 4.8 L (6.3-8.2) g/dL Albumin 2.0 L (3.5-5.0) g/dL Viral Test Microbiology - Last 24 Hours (Table) 07/26/21 08:15 Acid Fast Bacilli Smear - Final Bronchoalviolar Lavage - Left Acid Fast Bacilli Culture - Preliminary 07/17/21 10:00 Acid Fast Bacilli Smear - Final Bronchial Washings - Random Acid Fast Bacilli Culture - Preliminary 07/11/21 12:45 Acid Fast Bacilli Smear - Final Bronchial Washings - Left Acid Fast Bacilli Culture - Preliminary 07/26/21 08:15 Gram Stain - Preliminary Bronchoalviolar Lavage - Left Bronchial Washings Culture - Preliminary Assessment and Plan Plan: Assessment: 1. Acute kidney injury secondary to ATN secondary to septic shock. Creatinine was 1.78 at admission and peaked at 4.57 - 0.96 today. Nonoliguric. Unknown baseline renal function. Noted to be KELLY positive, complements low and double- stranded DNA antibody 8. Hepatitis and ANCA negative. anti-GBM negative. No monoclonality Need to rule out GN - patient has history of lupus - on steroids. Also component of obstructive uropathy - status post left ureteral stent placement this admission. With multi-organ failure as well as thrombocytopenia, there is concern for antiphospholipid syndrome. Elevated BUN due to acute kidney injury as well as steroids. 2. Septic shock secondary to pneumonia. Status post bronchoscopy. Off vasopressor support; on antibiotics. 3. Metabolic acidosis secondary to acute kidney injury and IV fluids. On oral bicarbonate. 4. Acute hypoxic respiratory failure secondary to pneumonia. Bronchial washings positive for Heidi. 5. Shock liver. Improved. 6. Hypokalemia from poor intake and diuresis. Replace. Better. 7. Hypomagnesemia from diuresis and poor intake. Replaced. Improved. 8. Left-sided hydronephrosis. Urology following. Status post left ureteral stent placement 07/16/2021. 9. Hypernatremia from lack of oral water intake. Improved with D5W. 10. History of mitral valve repair. Plan: Stop D5W. Maintain tube feeds. Maintain IV Lasix. Wean FiO2. Avoid nephrotoxins. Continue to monitor renal function and urine output. On steroids. Rheumatology following. Will need kidney biopsy once hemodynamically stable for definitive d iagnosis/classification of lupus nephritis. Anti-cardiolipin antibody negative. PTT normal. No DVT noted on lower extremity Dopplers.
--- NOTE | 2021-07-28 09:50 | P.PN ---
Subjective Progress Note Date: 07/28/21 Principal diagnosis: Shortness of breath. Pulmonary consult dated 07/10/2021. 69-year-old female, poor historian, who apparently was sent to the emergency department, from [facility] for pneumonia. The patient was recently also at [facility], for a pacemaker procedure. The patient complains of increasing shortness of breath, cough, congestion, and low saturations. She typically uses oxygen at 2 L/m, as needed. She is a heavy smoker in the past. She was admitted with a left lower lobe. She's currently on 6 L nasal cannula. She is not receiving any IV fluids. White count 3.6, hemoglobin 9.9, hematocrit 31.4, and platelet count 199,000. Sodium 141, potassium 4.3, chlorides 108, CO2 20, anion gap 13, BUN 35, and creatinine 1.93. Troponins were 0.[address] showed significant consolidation in the left lung base. Other findings in the other lung contreras were noted. Progress note dated 07/11/2021. 71-year-old female seen yesterday in consultation. She apparently was sent into the emergency department from [facility] for pneumonia. The patient came in complaining of shortness of breath, cough, chest congestion, and low saturations. Last night, right around midnight or so, her respiratory status worsened, and she was transferred to the intensive care unit, and placed on BiPAP. Currently, her BiPAP settings are 12/5 and 70%. She's not receiving any IV fluids. The patient is on Zosyn and azithromycin. Chest x-ray shows significant opacification of the left lung. I recommend significant chest physiotherapy. White count 12.5, hemoglobin 10.1, hematocrit 32.1, and platelet count 248,000. PT was 16 with an INR 1.6. Blood gases show pO2 of 61, pCO2 43, and pH is 7.27. This was apparently on 35% oxygen. Sodium 141, potassium 4, chlorides 112, CO2 21, BUN 42, and creatinine 1.60. Troponin 0.354. Chest x- ray shows extensive consolidation and volume loss in the left hemithorax. Progress note dated 07/12/2021. 71-year-old female again seen in room 254. The patient was admitted with a diagnosis of left-sided pneumonia. The patient developed acute respiratory failure, required transfer to the intensive care unit, and yesterday, was intubated and mechanically ventilated. The patient also had an arterial line placed, a central line placed, and did undergo bronchoscopy. She remains on mechanical ventilator, on volume assist control, rate 24, tidal volume 400, FiO2 60%, and PEEP of 10. Blood gases show a PaO2 of 223, pCO2 of 34, and a pH is 7.16. His blood gases were done on 80%. At that point, I started the patient on a sodium bicarbonate drip, with 2 ampules of sodium bicarbonate and D5W at 100 mL an hour. The patient remains on propofol at 15 mcg/kg/m and norepinephrine at 61 mcg/m. In addition, the patient is getting vital AF at 10 mL an hour. We have asked nephrology to see her. I've also asked for a cortisol level, and for her to be started on vasopressin. She is currently on Zosyn. White count 21.8, hemoglobin 10.4, hematocrit 32.6, platelet count 340,000. PTT is 28.8 with an INR of 2.9. Sodium 143, potassium 4.3, chlorides 117, CO2 13, anion gap 13, BUN 46, and creatinine 2.68. AST is 4763. ALT is 1213. Cortisol level was 55. Chest x-ray shows left greater than right airspace disease, although the findings in the left chest, are improved post intubation. Reevaluated today on 07/24/2021, patient was extubated yesterday, and so far she seems to be tolerating the extubation rather well. She is however on airvo with FiO2 of 70% and flow of 50 L/m., Patient has O2 saturation in the high 90s hence we'll titrate the FiO2 down to 60% or possibly 50% and obtaining an O2 saturation of 93% or better. Patient is hemodynamically stable, not requiring any pressors. She does have a paced rhythm, she is awake, alert, oriented, foll ows simple instructions, however she has a very weak cough. Recommended incentive spirometry at bedside, patient is scheduled to have a PICC line placed today, continues to have a left IJ central line in place today. And has been present since the of last month. Her sodium is elevated, hence the patient is on D5W at 100 mL per hour. Speech therapy to evaluate the patient today and assess his swallow evaluation, if the patient fails may consider Lasix again nasogastric tube for enteral feeding. WBC count today is 24.5 hemoglobin is 10.2. Her sodium is 149. BUN is improving creatinine is significantly improved down to 1.81 today and the patient is having good urine output. Liver enzymes have significantly improved over the last 1 week. Patient remains on Solu- Medrol, and I cut down the dose to 60 mg IV push every 8 hours. She is now off antibiotics as she received full course of treatment for presumptive pneumonia. Reevaluated today on 07/25/2021, patient remains extubated, patient was extubated 2 days ago, so far she seems to be tolerating the extubation well, however the patient remains marginal, she has a very poor cough, and she may be developing worsening left lower lobe atelectasis and consolidation based on the chest x-ray today. Patient is unable to clear secretions with her weak cough. Her chest x- ray continues to show bilateral pneumonia left more so than right, her renal functioning however is improving, and her creatinine is much better today compared to the last few days. Patient is able to follow instructions, remains profoundly weak. Her urine output seems to be excellent, in the last 24 hours, patient had 2420 in and 04/21/2004 out. Hence no plan to give the patient any Lasix at this time. She is in atrial flutter. Patient is hemodynamically stable, not requiring any pressors. She remains on airvo at 55% FiO2 and 50 L flow. O2 saturation is in the mid 90s. Multiple attempts have been made to place an orogastric tube in this patient or a nasogastric tube, and I could not place one even with a glidescope use, and direct visualization of the vocal cords, and for some reason the nasogastric tube goes into the vocal cords every time we have attempted. Could not get it into the area posterior to the vocal cords. At any rate may have to consider a PEG tube placement in this patient comes next week. Sodium remains elevated at 149, patient continues to receive D5W. Reevaluated today on 07/26/2021, patient took a downhill course early this morning around 4 AM, patient developed complete opacification of the left lung and she desaturated down. Picture of the chest x-ray was sent to me early this morning, and I recommended immediate intubation, mechanical ventilation, and I saw this patient this morning continues to have complete opacification of the left lung with ipsilateral deviation of the trachea consistent with mucous plugging of the left mainstem bronchus. Hence we'll write came in this morning, I evaluated the patient, and the first thing I did was to bronchoscope the patient cleared all the mucous plugs from the left mainstem bronchus, and I performed lavage of the left lung until completely cleared. Restarted the patient back on antibiotics to Zosyn, cultures from the BAL are pending. Patient is now again back on mechanical ventilation, and early this morning she was on assist control rate of 24th of volume 400 FiO2 100% and PEEP of 5. ABG shortly after she was intubated showed a pO2 of 77 pCO2 41 pH of 7.39. Patient is on propofol at 30 mcg/kg/m, she is on TPN at 50 mL per hour, but now that we have an orogastric tube in place, patient would have enteral feeding. Her urine output seems to be excellent. Her IV fluid is at D5W at 100 mL per hour. I recommended increasing back her Solu-Medrol, and she is active on Zosyn. I did consult Dr. paniagua as per family's request for tracheostomy evaluation, and he is apparently scheduling the patient for tracheostomy and PEG tube placement tomorrow. WBC count today is 26.5 hemoglobin is 10.5. Basic metabolic profile is normal creatinine is up a bit today up to 1.39. Patient did receive Lasix yesterday. And she had excellent urine output after the Lasix. Presently diuretics are on hold Progress note dated 07/27/2021. 71-year-old female admitted on July 09 for respiratory failure. She came to the intensive care unit on July 11, and was intubated on the same day. She was extubated on July 23, and unfortunately, was reintubated on July 26. He is currently on volume assist control, rate 24, tidal volume 400, FiO2 35%, PEEP of 5. Blood gases show pO2 of 101, pCO2 33, and a pH is 7.48. These blood gases are consistent with normoxemia and a respiratory alkalosis. The patient's getting D5W at 100 mL an hour, propofol at 20 mcg/kg/m, and TPN at 30 mL an hour. The patient will have a tracheostomy and PEG tube placement today. White count 22.6, hemoglobin 8.5, hematocrit 27.3, and platelet count 130,000. Sodium 140, potassium 2.9, chlorides 110, CO2 26, BUN 80, and creatinine 1.19. Albumin is 2.0. Chest x-rays consistent with bilateral airspace disease pleural effusion, left greater than right, and most consistent with fluid overload. Other than Heidi in the bronchial washings, microbiology has been negative. Progress note dated 07/28/2021. 72-year-old female, admitted on July 09 for respiratory failure. She came to the intensive care unit on July 11, and was intubated on the same day. She was extubated on July 23, and was reintubated on July 26. The patient had a tracheostomy and PEG tube placement on July 27. Ventilator settings include volume assist control, rate 24, tidal volume 400, FiO2 35%, and PEEP of 5, to be dropped down to 30%, and PEEP of 5. Blood gases show a PaO2 of 1:15, pCO2 of 31, and a pH is 7.49. Blood gases consistent with respiratory alkalosis. The patient remains on Zosyn and Diflucan. The patient's getting tube feedings with vital 1.2 at 20 mL an hour, with a goal of 33 mL an hour. The patient will have a spontaneous breathing trial today. The patient's getting dextrose at 50 mL an hour, TPN at 30 mL an hour, propofol at 10 mics per kilogram per minute. White count 20.7, hemoglobin 8.6, hematocrit 26.8, platelet count 129,000. Sodium 138, potassium 4.1, chlorides 109, CO2 23, BUN 68, and creatinine 0.96. AST of 66 with an ALT of 104. Albumin is 2. Chest x-ray is essentially unchanged and shows a bilateral interstitial pattern. Objective - Vital Signs Vital signs: Vital Signs Temp 97.8 F 07/28/21 08:00 Pulse 77 07/28/21 09:00 Resp 30 H 07/28/21 09:00 BP 126/70 07/26/21 08:00 Pulse Ox 96 07/28/21 09:00 Intake & Output 07/27/21 07/28/21 07/28/21 18:59 06:59 18:59 Intake Total 6853.320 2883 295.28 Output Total 1465 815 250 Balance -137.345 345 45.28 Weight 80.8 kg 81.9 kg Intake: IV 1210 1060 240 Dextrose 5% in Water 1, 750 600 150 000 ml @ 50 mls/hr IV . Q20H [facility] Rx#:[id number] Mvi, Adult No.4 with Vit 360 360 90 K 10 ml Trace (Conc-1Ml/ Dose) 1 ml Potassium Acetate 20 meq Calcium Gluconate 1 gm Magnesium Sulfate gm 1 gm In Amino Acid 5%-D15w 1,000 ml @ 30 mls/hr IV .BY DURATION [facility] Rx#:[id number] Piperacillin-Tazobactam 3 100 .375 gm In Sodium Chloride 0.9% 100 ml @ 25 mls/hr IVPB Q8HR [facility] Rx# :[id number] Piperacillin-Tazobactam 3 100 .375 gm In Sodium Chloride 0.9% 100 ml @ 25 mls/hr IVPB Q8HR [facility] Rx# :[id number] Intake, IV Titration 117.655 100 35.28 Amount propofoL 1,000 mg In 117.655 100 35.28 Empty Bag 1 bag @ 5 MCG/ KG/MIN 2.514 mls/hr IV . Q24H [facility] Rx#:[id number] Tube Feeding 20 Output: Urine 1455 815 250 Estimated Blood Loss 10 Other: Voiding Method Indwelling Catheter Indwelling Catheter Indwelling Catheter # Voids 90 ABP, PAP, CO, CI - Last Documented Arterial Blood Pressure 161/75 - Exam Currently on the mechanical ventilator. Midline tracheostomy tube noted. HEENT examination is grossly unremarkable. Neck supple. Full range of motion. No adenopathy thyromegaly or neck vein distention. Cardiovascular examination reveals regular rhythm rate. S1-S2 normal. No S3 or S4. No discernible murmur noted. Heart sounds are very distant. Heart rate 76 bpm. Lungs reveal coarse bilateral rhonchi. Basilar crackles are appreciated. No wheezes. Breath sounds are equal bilaterally. Saturations are 98%. Abdomen soft bowel sounds are not heard. No masses or tenderness. PEG tube noted. Extremities are intact. No cyanosis clubbing or edema. Skin is without rash or lesion. Neurologic examination cannot be adequately assessed as the patient currently on sedation. - Labs CBC & Chem 7: 07/28/21 06:20 07/28/21 06:20 Labs: Abnormal Lab Results - Last 24 Hours (Table) 07/26/21 07/27/21 07/27/21 Range/Units 08:15 12:33 17:52 WBC (3.8-10.6) k/uL RBC (3.80-5.40) m/uL Hgb (11.4-16.0) gm/dL Hct (34.0-46.0) % RDW (11.5-15.5) % Plt Count (150-450) k/uL ABG pH (7.35-7.45) ABG pCO2 (35-45) mmHg ABG pO2 (83-108) mmHg ABG O2 Saturation (94-97) % Chloride (98-107) mmol/L BUN (7-17) mg/dL Creatinine (0.52-1.04) mg/dL Glucose (74-99) mg/dL POC Glucose (mg/dL) 154 H 142 H (75-99) mg/dL Calcium (8.4-10.2) mg/dL Total Bilirubin (0.2-1.3) mg/dL AST (14-36) U/L ALT (4-34) U/L Total Protein (6.3-8.2) g/dL Albumin (3.5-5.0) g/dL Viral Test See Below A 07/27/21 07/28/21 07/28/21 Range/Units 20:35 01:01 05:50 WBC (3.8-10.6) k/uL RBC (3.80-5.40) m/uL Hgb (11.4-16.0) gm/dL Hct (34.0-46.0) % RDW (11.5-15.5) % Plt Count (150-450) k/uL ABG pH 7.49 H (7.35-7.45) ABG pCO2 31 L (35-45) mmHg ABG pO2 115 H (83-108) mmHg ABG O2 Saturation 98.4 H (94-97) % Chloride 109 H (98-107) mmol/L BUN 72 H (7-17) mg/dL Creatinine 1.05 H (0.52-1.04) mg/dL Glucose 151 H (74-99) mg/dL POC Glucose (mg/dL) 162 H (75-99) mg/dL Calcium 7.6 L (8.4-10.2) mg/dL Total Bilirubin (0.2-1.3) mg/dL AST (14-36) U/L ALT (4-34) U/L Total Protein (6.3-8.2) g/dL Albumin (3.5-5.0) g/dL Viral Test 07/28/21 07/28/21 07/28/21 Range/Units 06:20 06:20 06:36 WBC 20.7 H (3.8-10.6) k/uL RBC 2.98 L (3.80-5.40) m/uL Hgb 8.6 L (11.4-16.0) gm/dL Hct 26.8 L (34.0-46.0) % RDW 17.4 H (11.5-15.5) % Plt Count 129 L (150-450) k/uL ABG pH (7.35-7.45) ABG pCO2 (35-45) mmHg ABG pO2 (83-108) mmHg ABG O2 Saturation (94-97) % Chloride 109 H (98-107) mmol/L BUN 68 H (7-17) mg/dL Creatinine (0.52-1.04) mg/dL Glucose 214 H (74-99) mg/dL POC Glucose (mg/dL) 224 H (75-99) mg/dL Calcium 7.5 L (8.4-10.2) mg/dL Total Bilirubin 1.9 H (0.2-1.3) mg/dL AST 66 H (14-36) U/L ALT 104 H (4-34) U/L Total Protein 4.8 L (6.3-8.2) g/dL Albumin 2.0 L (3.5-5.0) g/dL Viral Test Microbiology - Last 24 Hours (Table) 07/26/21 08:15 Acid Fast Bacilli Smear - Final Bronchoalviolar Lavage - Left Acid Fast Bacilli Culture - Preliminary 07/17/21 10:00 Acid Fast Bacilli Smear - Final Bronchial Washings - Random Acid Fast Bacilli Culture - Preliminary 07/11/21 12:45 Acid Fast Bacilli Smear - Final Bronchial Washings - Left Acid Fast Bacilli Culture - Preliminary 07/26/21 08:15 Gram Stain - Preliminary Bronchoalviolar Lavage - Left Bronchial Washings Culture - Preliminary Assessment and Plan Assessment: Acute hypoxemic respiratory failure secondary to left lower lobe pneumonia, status post intubation and mechanical ventilation as well as bronchoscopy on 07/11/2021, extubation on 07/23/2021, and reintubation on 07/26/2021. Septic shock, with multiorgan system failure. 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 S/P tracheostomy and PEG tube placement, 07/27/2021. CAD, status post bypass grafting. Acute hypoxemic respiratory failure secondary to pneumonia and COPD. History of COPD from previous significant tobacco use. History of hypertension. History of hyperlipidemia. Status post pacemaker implantation. Vague history of CHF. Plan: Plan dated 07/10/2021. Currently, the patient's on azithromycin and Zosyn. The patient is also getting any treatments with albuterol sulfate and ipratropium bromide. We will continue to follow make recommendations were appropriate. Prognosis is certainly guarded. The CAT scan, x-rays, and medications are all reviewed. The patient should have outpatient evaluation of her chronic lung disease once she is better and is discharged. Infectious disease should see this patient. Plan dated 07/11/2021. The patient was transferred to the intensive care unit for further monitoring and management. She was transferred sometime after midnight. She remains on BiPAP. Saturations are reasonable. Chest x-ray shows near complete opacification of the left lung. We recommend the right lung to be down, and significant chest physiotherapy to the left lung. Additional recommendations and suggestions are forthcoming. Labs, x-rays, and medications are reviewed. W e'll continue to follow. Plan dated 07/12/2021. The patient was intubated and mechanically ventilated yesterday, 07/11/2021. In addition, an arterial line was placed, as well as a central line, and the patient underwent bronchoscopy. Currently everything is pending. The patient remains on the mechanical ventilator. She is on propofol at 15 mcg/kg/m, and norepinephrine at 61 mcg/m. I'm going to add vasopressin to her regimen. Will have nephrology see her for her worsening renal function and poor urine output. Cortisol level was adequate. She remains on Zosyn as per infectious diseases. I did have a very long conversation with her daughter. I explained to the daughter that we are giving her best supportive care. The patient remains a full code at this time. Plan dated 07/27/2021. The patient will undergo tracheostomy and PEG tube placement today. Was started on enteral nutrition. Blood gases show a respiratory alkalosis. No ventilator changes. We'll make sure the patient's on DuoNeb every 4 hours [id number]. Continue GI and DVT prophylaxis. Zosyn was started empirically. No additional recommendations are made. Prognosis is guarded. The patient remains on fluconazole. Labs, x-rays, and medications are all reviewed. Prognosis is guarded. We'll continue to follow the patient and make recommendations where appropriate. Plan dated 07/28/2021. The patient did have her PEG tube placement and tracheostomy performed yesterday. She continues on Zosyn and Diflucan. The patient is getting tube feedings with vital 1.2 at 20 mL an hour, with a goal of 33 mL an hour. The TPN will be stopped later today. Later today, the patient can have a daily inter ruption of sedation and a spontaneous breathing trial. Labs, x-rays, and medications are all reviewed. We will continue to follow the patient and make recommendations where appropriate. The patient's overall prognosis is very guarded. Time with Patient: Greater than 30
--- NOTE | 2021-07-28 11:12 | P.PN ---
Subjective Progress Note Date: 07/28/21 CHIEF COMPLAINT: Respiratory failure HISTORY OF PRESENT ILLNESS: Patient is in the ICU. She is status post tracheostomy and PEG tube placement. Postop day #1. She is currently tolerating her tube feeds at 20 mL per hour. Pulmonary service is planning a spontaneous breathing trial today. Afebrile. WBC 20.7 hemoglobin 8.66 PHYSICAL EXAM: VITAL SIGNS: Reviewed. GENERAL: Well-developed in no acute distress. HEENT: Head is atraumatic, normocephalic. Tracheostomy site with clearish, pink drainage noted ABDOMEN: Soft. Nondistended. PEG tube site with small amount of blood oozing around the PEG tube. ASSESSMENT: 1. Acute hypoxic respiratory failure secondary to lupus pneumonitis and po ssible community acquired pneumonia 2. Severe protein calorie malnutrition 3. Sepsis PLAN: -Continue to titrate to feedings -Continue supportive care -Continue ICU management Physician Specialist Managers note has been reviewed by physician. Signing provider agrees with the documented findings, assessment, and plan of care. I have personally seen and examined the patient, reviewed the CLINICAL NURSE MANAGER /PAs history, exam and MDM and agree with the assessment and plan as written. Based on total visit time, I have performed more than 50% of the visit. As above: Patient doing well today. Sedation is been held. No issues with the tracheostomy or PEG tube. Begin tube feeds today. Objective - Vital Signs Vital signs: Vital Signs Temp 97.8 F 07/28/21 08:00 Pulse 81 07/28/21 11:00 Resp 26 H 07/28/21 11:00 BP 126/70 07/26/21 08:00 Pulse Ox 96 07/28/21 11:00 Intake & Output 07/27/21 07/28/21 07/28/21 18:59 06:59 18:59 Intake Total 0866.892 6044 464.582 Output Total 1465 815 490 Balance -137.345 345 -25.418 Weight 80.8 kg 81.9 kg Intake: IV 1210 1060 400 Dextrose 5% in Water 1, 750 600 250 000 ml @ 50 mls/hr IV . Q20H [facility] Rx#:[id number] Mvi, Adult No.4 with Vit 360 360 150 K 10 ml Trace (Conc-1Ml/ Dose) 1 ml Potassium Acetate 20 meq Calcium Gluconate 1 gm Magnesium Sulfate gm 1 gm In Amino Acid 5%-D15w 1,000 ml @ 30 mls/hr IV .BY DURATION [facility] Rx#:[id number] Piperacillin-Tazobactam 3 100 .375 gm In Sodium Chloride 0.9% 100 ml @ 25 mls/hr IVPB Q8HR [facility] Rx# :[id number] Piperacillin-Tazobactam 3 100 .375 gm In Sodium Chloride 0.9% 100 ml @ 25 mls/hr IVPB Q8HR [facility] Rx# :[id number] Intake, IV Titration 117.655 100 44.582 Amount propofoL 1,000 mg In 117.655 100 44.582 Empty Bag 1 bag @ 5 MCG/ KG/MIN 2.514 mls/hr IV . Q24H [facility] Rx#:[id number] Tube Feeding 20 Output: Urine 1455 815 490 Estimated Blood Loss 10 Other: Voiding Method Indwelling Catheter Indwelling Catheter Indwelling Catheter # Voids 90 ABP, PAP, CO, CI - Last Documented Arterial Blood Pressure 158/68 - Labs CBC & Chem 7: 07/28/21 06:20 07/28/21 06:20 Labs: Abnormal Lab Results - Last 24 Hours (Table) 07/26/21 07/27/21 07/27/21 Range/Units 08:15 12:33 17:52 WBC (3.8-10.6) k/uL RBC (3.80-5.40) m/uL Hgb (11.4-16.0) gm/dL Hct (34.0-46.0) % RDW (11.5-15.5) % Plt Count (150-450) k/uL ABG pH (7.35-7.45) ABG pCO2 (35-45) mmHg ABG pO2 (83-108) mmHg ABG O2 Saturation (94-97) % Chloride (98-107) mmol/L BUN (7-17) mg/dL Creatinine (0.52-1.04) mg/dL Glucose (74-99) mg/dL POC Glucose (mg/dL) 154 H 142 H (75-99) mg/dL Calcium (8.4-10.2) mg/dL Total Bilirubin (0.2-1.3) mg/dL AST (14-36) U/L ALT (4-34) U/L Total Protein (6.3-8.2) g/dL Albumin (3.5-5.0) g/dL Viral Test See Below A 07/27/21 07/28/21 07/28/21 Range/Units 20:35 01:01 05:50 WBC (3.8-10.6) k/uL RBC (3.80-5.40) m/uL Hgb (11.4-16.0) gm/dL Hct (34.0-46.0) % RDW (11.5-15.5) % Plt Count (150-450) k/uL ABG pH 7.49 H (7.35-7.45) ABG pCO2 31 L (35-45) mmHg ABG pO2 115 H (83-108) mmHg ABG O2 Saturation 98.4 H (94-97) % Chloride 109 H (98-107) mmol/L BUN 72 H (7-17) mg/dL Creatinine 1.05 H (0.52-1.04) mg/dL Glucose 151 H (74-99) mg/dL POC Glucose (mg/dL) 162 H (75-99) mg/dL Calcium 7.6 L (8.4-10.2) mg/dL Total Bilirubin (0.2-1.3) mg/dL AST (14-36) U/L ALT (4-34) U/L Total Protein (6.3-8.2) g/dL Albumin (3.5-5.0) g/dL Viral Test 07/28/21 07/28/21 07/28/21 Range/Units 06:20 06:20 06:36 WBC 20.7 H (3.8-10.6) k/uL RBC 2.98 L (3.80-5.40) m/uL Hgb 8.6 L (11.4-16.0) gm/dL Hct 26.8 L (34.0-46.0) % RDW 17.4 H (11.5-15.5) % Plt Count 129 L (150-450) k/uL ABG pH (7.35-7.45) ABG pCO2 (35-45) mmHg ABG pO2 (83-108) mmHg ABG O2 Saturation (94-97) % Chloride 109 H (98-107) mmol/L BUN 68 H (7-17) mg/dL Creatinine (0.52-1.04) mg/dL Glucose 214 H (74-99) mg/dL POC Glucose (mg/dL) 224 H (75-99) mg/dL Calcium 7.5 L (8.4-10.2) mg/dL Total Bilirubin 1.9 H (0.2-1.3) mg/dL AST 66 H (14-36) U/L ALT 104 H (4-34) U/L Total Protein 4.8 L (6.3-8.2) g/dL Albumin 2.0 L (3.5-5.0) g/dL Viral Test Microbiology - Last 24 Hours (Table) 07/26/21 08:15 Gram Stain - Final Bronchoalviolar Lavage - Left Bronchial Washings Culture - Final 07/26/21 08:15 Acid Fast Bacilli Smear - Final Bronchoalviolar Lavage - Left Acid Fast Bacilli Culture - Preliminary 07/17/21 10:00 Acid Fast Bacilli Smear - Final Bronchial Washings - Random Acid Fast Bacilli Culture - Preliminary 07/11/21 12:45 Acid Fast Bacilli Smear - Final Bronchial Washings - Left Acid Fast Bacilli Culture - Preliminary
[2021-07-28 12:11] LABS: Glucose,Whole Blood 178 mg/dL (75-99)
[2021-07-28] MEDS ORDERED: KETOROLAC 15 MG/ML 1 ML VIAL IVP PRN (12:34)
--- NOTE | 2021-07-28 14:48 | CT ---
EXAMINATION TYPE: CT brain wo con DATE OF EXAM: 07/28/2021 COMPARISON: CT dated 07/21/2021 HISTORY: brain bleed CT DLP: 1106.4 mGycm Automated exposure control for dose reduction was used. TECHNIQUE: CT scan of the brain is performed without IV contrast administration. FINDINGS: Significant interval regression of the previously seen hyperdense millimetric focus in the right west etal lobe with residual faint hyperdensity at that location, likely representing a resolving parenchy mal bleeding. Minimal right anterior frontal cortical hyperdensity that could represent minimal subar achnoid hemorrhage, stable. Brain volume loss changes, likely age-related. Bilateral cerebral white matter hypodensities likely r epresenting mild chronic microvascular ischemic changes. No other acute intracranial hemorrhage. No g ross acute cortical infarct. No midline shift, herniation or ventriculomegaly. Unremarkable bashir-white matter differentiation, basal cisterns, sella and CP angles. No gross space-o ccupying lesion, vasogenic edema or mass effect. Unremarkable orbits. Clear visualized paranasal sinuses. Mildly opacified mastoid air cells. Osteopen ia. IMPRESSION: Almost complete resolution of the previously seen hyperdense focus in the right parietal lobe likely representing a resolving parenchymal bleeding. Stable right anterior frontal suspected small subarach noid hemorrhage. No new intracranial bleeding or new mass effect. Other findings as detailed above.
[2021-07-28] MEDS: LOSARTAN 50 MG TAB PO SCH (15:11)
--- NOTE | 2021-07-28 16:11 | P.PN ---
Subjective Progress Note Date: 07/28/21 The patient had Trach and PEG yesterday. Per the nurse the patient mentation is doing better. She has been Off IV Propofol since 9am. Objective - Vital Signs Vital signs: Vital Signs Temp 98.0 F 07/28/21 12:00 Pulse 82 07/28/21 15:00 Resp 25 H 07/28/21 15:00 BP 126/70 07/26/21 08:00 Pulse Ox 96 07/28/21 15:00 Intake & Output 07/27/21 07/28/21 07/28/21 18:59 06:59 18:59 Intake Total 2995.708 2485 754.582 Output Total 1465 815 805 Balance -137.345 345 -50.418 Weight 80.8 kg 81.9 kg Intake: IV 1210 1060 570 Dextrose 5% in Water 1, 750 600 300 000 ml @ 50 mls/hr IV . Q20H [facility] Rx#:[id number] Mvi, Adult No.4 with Vit 360 360 270 K 10 ml Trace (Conc-1Ml/ Dose) 1 ml Potassium Acetate 20 meq Calcium Gluconate 1 gm Magnesium Sulfate gm 1 gm In Amino Acid 5%-D15w 1,000 ml @ 30 mls/hr IV .BY DURATION [facility] Rx#:[id number] Piperacillin-Tazobactam 3 100 .375 gm In Sodium Chloride 0.9% 100 ml @ 25 mls/hr IVPB Q8HR [facility] Rx# :[id number] Piperacillin-Tazobactam 3 100 .375 gm In Sodium Chloride 0.9% 100 ml @ 25 mls/hr IVPB Q8HR [facility] Rx# :[id number] Intake, IV Titration 117.655 100 44.582 Amount propofoL 1,000 mg In 117.655 100 44.582 Empty Bag 1 bag @ 5 MCG/ KG/MIN 2.514 mls/hr IV . Q24H [facility] Rx#:[id number] Tube Feeding 140 Output: Urine 1455 815 805 Estimated Blood Loss 10 Other: Voiding Method Indwelling Catheter Indwelling Catheter Indwelling Catheter # Voids 90 ABP, PAP, CO, CI - Last Documented Arterial Blood Pressure 160/64 - Exam GENERAL: The patient is lying in bed and does not appear in acute distress. LUNG: Trach on ventilator. NEUROLOGICAL: IV Propofol 20mcg/kg/min--off since 9am (almost 6 hours prior to examination). Higher mental function: The patient is awake, alert. She is following simple commands (wiggling toes, opening and closing eyes). Cranial nerves: The pupils are round, equal, about 4-5mm bilaterally and reactive to light. No facial weakness. Motor: The strength is limited but wiggles bilateral toes and attempts to shows thumbs up on left hand. Cerebellum: Unable to assess. SOME OF THE WORK-UP: Ammonia level <9 Creatning on initial presentation is 1.78-->1.19 AST: 23-->400-->522-->46 ALT 9-->1800-->889-->100 KELLY is positive Double strand DNA ab Indeterminate, complement C3: 20 and c4:2.0 C-ANCA and P-ANCA are negative. Computed tomography scan of head 07/21/2021 revealed unchanged right posterior parietal subcortical white matter focus measuring 6 mm, likely representing small intraparenchymal hemorrhage. No additional evidence for new acute hemorrhage. She had two repeated CT head at 8pm on 07/15/2021 and today around 9ish am and no change. CT head on 07/28/2021: Almost complete resolution of the previously seen hyperdense focus in the right parietal lobe likely representing a resolving parenchymal bleeding. Stable right anterior frontal suspected small subarachnoid hemorrhage. No new intracranial bleeding or new mass effect. I personally reviewed the CT of the head and I agree with the reported. Regarding the suspected small subarachnoid hemorrhage that was not seen on the initial CT of the brain during this admission that was able to appreciate. EEG on 07/15/2021: This is an abnormal routine EEG. The background slowing is suggestive of severe encephalopathy. The triphasic wave are suggestive of likely toxic-metabolic etiology. Otherwise there is no focal slowing, epileptiform discharge or seizure on the EEG. EEG on 07/16/2021: This is an abnormal routine EEG. The background slowing is suggestive of severe encephalopathy. The triphasic wave are suggestive of likely toxic-metabolic etiology. Otherwise there is no focal slowing, epileptiform discharge or seizure on the EEG. Compared to the EEG from the prior day (07/15/2021), there is no change. - Labs CBC & Chem 7: 07/28/21 06:20 07/28/21 06:20 Labs: Abnormal Lab Results - Last 24 Hours (Table) 07/27/21 07/27/21 07/28/21 Range/Units 17:52 20:35 01:01 WBC (3.8-10.6) k/uL RBC (3.80-5.40) m/uL Hgb (11.4-16.0) gm/dL Hct (34.0-46.0) % RDW (11.5-15.5) % Plt Count (150-450) k/uL ABG pH (7.35-7.45) ABG pCO2 (35-45) mmHg ABG pO2 (83-108) mmHg ABG O2 Saturation (94-97) % Chloride 109 H (98-107) mmol/L BUN 72 H (7-17) mg/dL Creatinine 1.05 H (0.52-1.04) mg/dL Glucose 151 H (74-99) mg/dL POC Glucose (mg/dL) 142 H 162 H (75-99) mg/dL Calcium 7.6 L (8.4-10.2) mg/dL Total Bilirubin (0.2-1.3) mg/dL AST (14-36) U/L ALT (4-34) U/L Total Protein (6.3-8.2) g/dL Albumin (3.5-5.0) g/dL 07/28/21 07/28/21 07/28/21 Range/Units 05:50 06:20 06:20 WBC 20.7 H (3.8-10.6) k/uL RBC 2.98 L (3.80-5.40) m/uL Hgb 8.6 L (11.4-16.0) gm/dL Hct 26.8 L (34.0-46.0) % RDW 17.4 H (11.5-15.5) % Plt Count 129 L (150-450) k/uL ABG pH 7.49 H (7.35-7.45) ABG pCO2 31 L (35-45) mmHg ABG pO2 115 H (83-108) mmHg ABG O2 Saturation 98.4 H (94-97) % Chloride 109 H (98-107) mmol/L BUN 68 H (7-17) mg/dL Creatinine (0.52-1.04) mg/dL Glucose 214 H (74-99) mg/dL POC Glucose (mg/dL) (75-99) mg/dL Calcium 7.5 L (8.4-10.2) mg/dL Total Bilirubin 1.9 H (0.2-1.3) mg/dL AST 66 H (14-36) U/L ALT 104 H (4-34) U/L Total Protein 4.8 L (6.3-8.2) g/dL Albumin 2.0 L (3.5-5.0) g/dL 07/28/21 07/28/21 Range/Units 06:36 12:10 WBC (3.8-10.6) k/uL RBC (3.80-5.40) m/uL Hgb (11.4-16.0) gm/dL Hct (34.0-46.0) % RDW (11.5-15.5) % Plt Count (150-450) k/uL ABG pH (7.35-7.45) ABG pCO2 (35-45) mmHg ABG pO2 (83-108) mmHg ABG O2 Saturation (94-97) % Chloride (98-107) mmol/L BUN (7-17) mg/dL Creatinine (0.52-1.04) mg/dL Glucose (74-99) mg/dL POC Glucose (mg/dL) 224 H 178 H (75-99) mg/dL Calcium (8.4-10.2) mg/dL Total Bilirubin (0.2-1.3) mg/dL AST (14-36) U/L ALT (4-34) U/L Total Protein (6.3-8.2) g/dL Albumin (3.5-5.0) g/dL Microbiology - Last 24 Hours (Table) 07/26/21 08:15 Gram Stain - Final Bronchoalviolar Lavage - Left Bronchial Washings Culture - Final 07/26/21 08:15 Acid Fast Bacilli Smear - Final Bronchoalviolar Lavage - Left Acid Fast Bacilli Culture - Preliminary 07/17/21 10:00 Acid Fast Bacilli Smear - Final Bronchial Washings - Random Acid Fast Bacilli Culture - Preliminary 07/11/21 12:45 Acid Fast Bacilli Smear - Final Bronchial Washings - Left Acid Fast Bacilli Culture - Preliminary Assessment and Plan Assessment: Acute small Hemorrhagic stroke over the right parietal---resolving and possible subarachnoid over the right frontal: Unsure cause. Possibly could be due to episode of supratherapeutic INR (was as steve as 6.4 that she received reversal on 07/13 and currently 1.5)---hemorrhage over the right parietal almost resolved and image is stable. 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 ---mentation improving. Septic shock with multisystem organ failure History of Lupus for years Acute kidney injury--improving Acute hypoxic respiratory failure due to left lung pneumonia indicating Heidi albicans s/p Trach on 07/27/2021 Acute shock liver-trending down Acute Coumadin toxicity that received reversal improved and INR is subtherapeutic History of coronary artery disease status post the CABG s/p Pacemaker on coumadin Valvular heart surgery Hypertension Hyperlipidemia Plan: CT head on 07/28/2021: Almost complete resolution of the previously seen hyperdense focus in the right parietal lobe likely representing a resolving parenchymal bleeding. Stable right anterior frontal suspected small subarachnoid hemorrhage. No new intracranial bleeding or new mass effect. I personally reviewed the CT of the head and I agree with the reported. Regarding the suspected small subarachnoid hemorrhage that was not seen on the initial CT of the brain during this admission that was able to appreciate. I reviewed the images with patient's daughter who is at bedside and she would like to restart the patient on Coumadin (she is aware of risk of bleed but if aware there is also risk of stroke without anticoagulation). Recommend INR goal to be between 2-3 (and if possible keep between 2-2.5). Obtain CT head 24 hours post anticoagulation and another repeat within 10 days from start on anticoagulation unless has worsening of neurological symptoms then earlier. Nephrology team is on board. Will defer the rest of medical management to the primary and ICU team. The patient needs to follow-up with a neurologist as outpatient within 1-2 weeks upon discharge. The plan is discussed with her daughter and her nurse. Tremaine Mcguire M.D. Neuro-hospitalist Time with Patient: Less than 30
[2021-07-28] MEDS: SODIUM CHLORIDE 0.9% 1,000 ML IV SCH (17:08)
[2021-07-28] MEDS: FLUCONAZOLE IN NACL,ISO-OSM 200 MG in SALINE 1 100ML.BAG IVPB SCH (17:11)
[2021-07-28 17:29] LABS: Glucose,Whole Blood 212 mg/dL (75-99)
--- NOTE | 2021-07-28 20:03 | DS ---
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 She had another CT scan for the fourth time today that shows almost complete resolution of the hyperdense focus in the right parietal lobe; could be patient admitting representative of a small 5 mm bleed that has now resolved. She had a trach and PEG. She is doing well postoperatively. She is titrating feedings. Lupus pneumonitis, community-acquired pneumonia, hypoxic respiratory failure, protein- calorie malnutrition, sepsis. Blood pressure went high today and we restarted her home blood pressure medicines. Her blood pressure is 165/67, FiO2 30%, O2 saturation 97, mechanical vent. Temperature 97.8, pulse 82. Labs show white count 20.7, hemoglobin is 8.6, pCO2 31, PO2 115 on the vent. Sugars in mid 100s. Remains in ICU. Restart her home blood pressure medicines. Continue with IV steroids. Treat lupus. Creatinine is greatly improved. Creatinine is down to 0.96, in normal range, from 4.2 a couple weeks ago. Continues to improve. Tube feedings. Possible step-down unit, [facility] for trach care. Possibly transfer. Blood thinners being discussed with multiple physicians. MMODL / IJN: [id number] /
[2021-07-28] MEDS: 1: MVI, ADULT NO.4 WITH VIT K 10 ML, TRACE (CONC-1ML/DOSE) 1 ML, POTASSIUM ACETATE 20 ME IV SCH ×6 (21:01)
--- NOTE | 2021-07-28 21:20 | P.PN ---
Subjective Progress Note Date: 07/28/21 Principal diagnosis: Pneumonia Patient is a 71-year-old female with a past medical history significant for COPD and recent admission to [facility] for pneumonia pr esented to hospital with increasing shortness of breath and cough with a CT suspicious for left lower lobe pneumonia. The patient is status post cystoscopy and left ureteral stent placement completed on 07/16/2021, the patient went into respiratory distress evening of 07/25/2021 and got reintubated, the patient is status post bronchoscopy completed on 07/26/2021, patient is scheduled for a trach and PEG 07/27/2021 On today's evaluation that is 07/28/2021, the patient continues to be afebrile , the patient is hemodynamically stable not requiring any pressor support the patient FiO2 is stable at 30%, no significant purulent secretion through the ET, diarrhea reported by nursing staff Objective - Vital Signs Vital signs: Vital Signs Temp 97.8 F 07/28/21 08:00 Pulse 82 07/28/21 11:34 Resp 26 H 07/28/21 11:00 BP 126/70 07/26/21 08:00 Pulse Ox 96 07/28/21 11:00 Intake & Output 07/27/21 07/28/21 07/28/21 18:59 06:59 18:59 Intake Total 4427.636 7232 464.582 Output Total 1465 815 490 Balance -137.345 345 -25.418 Weight 80.8 kg 81.9 kg Intake: IV 1210 1060 400 Dextrose 5% in Water 1, 750 600 250 000 ml @ 50 mls/hr IV . Q20H [facility] Rx#:[id number] Mvi, Adult No.4 with Vit 360 360 150 K 10 ml Trace (Conc-1Ml/ Dose) 1 ml Potassium Acetate 20 meq Calcium Gluconate 1 gm Magnesium Sulfate gm 1 gm In Amino Acid 5%-D15w 1,000 ml @ 30 mls/hr IV .BY DURATION [facility] Rx#:[id number] Piperacillin-Tazobactam 3 100 .375 gm In Sodium Chloride 0.9% 100 ml @ 25 mls/hr IVPB Q8HR [facility] Rx# :[id number] Piperacillin-Tazobactam 3 100 .375 gm In Sodium Chloride 0.9% 100 ml @ 25 mls/hr IVPB Q8HR [facility] Rx# :[id number] Intake, IV Titration 117.655 100 44.582 Amount propofoL 1,000 mg In 117.655 100 44.582 Empty Bag 1 bag @ 5 MCG/ KG/MIN 2.514 mls/hr IV . Q24H [facility] Rx#:[id number] Tube Feeding 20 Output: Urine 1455 815 490 Estimated Blood Loss 10 Other: Voiding Method Indwelling Catheter Indwelling Catheter Indwelling Catheter # Voids 90 ABP, PAP, CO, CI - Last Documented Arterial Blood Pressure 158/68 - Exam GENERAL DESCRIPTION: An elderly female intubated on the vent RESPIRATORY SYSTEM: Unlabored breathing , decreased breath sounds at bases HEART: S1 S2 regular rate and rhythm , ABDOMEN: Soft , no tenderness EXTREMITIES: No edema feet - Labs CBC & Chem 7: 07/28/21 06:20 07/28/21 06:20 Labs: Abnormal Lab Results - Last 24 Hours (Table) 07/26/21 07/27/21 07/27/21 Range/Units 08:15 12:33 17:52 WBC (3.8-10.6) k/uL RBC (3.80-5.40) m/uL Hgb (11.4-16.0) gm/dL Hct (34.0-46.0) % RDW (11.5-15.5) % Plt Count (150-450) k/uL ABG pH (7.35-7.45) ABG pCO2 (35-45) mmHg ABG pO2 (83-108) mmHg ABG O2 Saturation (94-97) % Chloride (98-107) mmol/L BUN (7-17) mg/dL Creatinine (0.52-1.04) mg/dL Glucose (74-99) mg/dL POC Glucose (mg/dL) 154 H 142 H (75-99) mg/dL Calcium (8.4-10.2) mg/dL Total Bilirubin (0.2-1.3) mg/dL AST (14-36) U/L ALT (4-34) U/L Total Protein (6.3-8.2) g/dL Albumin (3.5-5.0) g/dL Viral Test See Below A 07/27/21 07/28/21 07/28/21 Range/Units 20:35 01:01 05:50 WBC (3.8-10.6) k/uL RBC (3.80-5.40) m/uL Hgb (11.4-16.0) gm/dL Hct (34.0-46.0) % RDW (11.5-15.5) % Plt Count (150-450) k/uL ABG pH 7.49 H (7.35-7.45) ABG pCO2 31 L (35-45) mmHg ABG pO2 115 H (83-108) mmHg ABG O2 Saturation 98.4 H (94-97) % Chloride 109 H (98-107) mmol/L BUN 72 H (7-17) mg/dL Creatinine 1.05 H (0.52-1.04) mg/dL Glucose 151 H (74-99) mg/dL POC Glucose (mg/dL) 162 H (75-99) mg/dL Calcium 7.6 L (8.4-10.2) mg/dL Total Bilirubin (0.2-1.3) mg/dL AST (14-36) U/L ALT (4-34) U/L Total Protein (6.3-8.2) g/dL Albumin (3.5-5.0) g/dL Viral Test 07/28/21 07/28/21 07/28/21 Range/Units 06:20 06:20 06:36 WBC 20.7 H (3.8-10.6) k/uL RBC 2.98 L (3.80-5.40) m/uL Hgb 8.6 L (11.4-16.0) gm/dL Hct 26.8 L (34.0-46.0) % RDW 17.4 H (11.5-15.5) % Plt Count 129 L (150-450) k/uL ABG pH (7.35-7.45) ABG pCO2 (35-45) mmHg ABG pO2 (83-108) mmHg ABG O2 Saturation (94-97) % Chloride 109 H (98-107) mmol/L BUN 68 H (7-17) mg/dL Creatinine (0.52-1.04) mg/dL Glucose 214 H (74-99) mg/dL POC Glucose (mg/dL) 224 H (75-99) mg/dL Calcium 7.5 L (8.4-10.2) mg/dL Total Bilirubin 1.9 H (0.2-1.3) mg/dL AST 66 H (14-36) U/L ALT 104 H (4-34) U/L Total Protein 4.8 L (6.3-8.2) g/dL Albumin 2.0 L (3.5-5.0) g/dL Viral Test Microbiology - Last 24 Hours (Table) 07/26/21 08:15 Gram Stain - Final Bronchoalviolar Lavage - Left Bronchial Washings Culture - Final 07/26/21 08:15 Acid Fast Bacilli Smear - Final Bronchoalviolar Lavage - Left Acid Fast Bacilli Culture - Preliminary 07/17/21 10:00 Acid Fast Bacilli Smear - Final Bronchial Washings - Random Acid Fast Bacilli Culture - Preliminary 07/11/21 12:45 Acid Fast Bacilli Smear - Final Bronchial Washings - Left Acid Fast Bacilli Culture - Preliminary Assessment and Plan (1) Pneumonia Current Visit: Yes Status: Acute Code(s): J18.9 - PNEUMONIA, UNSPECIFIED ORGANISM SNOMED Code(s): 763629530 Plan: 1patient presented to hospital with acute respiratory failure with in this patient did have hypoxemia increasing shortness of breath and cough with evidence of left lower lobe pneumonia on the CT and recently admitted and treated at [facility] and concerning for a gram-negative pneumonia sputum and bronchial culture were negative , patient did have initial improvement however subsequently did have worsening of respiratory status requir ing intubation possible mucus plugging status post bronchoscopy and repeat culture which are currently pending, patient to continue with Zosyn and monitor the clinical course closely Time with Patient: Less than 30
[2021-07-29] MEDS: IPRATROPIUM-ALBUTEROL 3 ML NEB INHALATION SCH ×7 (00:16→23:46)
[2021-07-29 00:30] LABS: Glucose,Whole Blood 162 mg/dL (75-99)
[2021-07-29] MEDS: methylPREDNISolone SOD SUCCI 125 MG/2 ML VIAL IV SCH ×2 (00:42→06:22)
[2021-07-29] MEDS: METOCLOPRAMIDE 5 MG/ML 2 ML VIAL IVP SCH ×4 (00:42→18:02)
[2021-07-29] MEDS: INSULIN ASPART (NovoLOG) 100 UNIT/ML VIAL SQ SCH ×4 (00:42→18:40)
[2021-07-29] MEDS: PIPERACILLIN-TAZOBACTAM 3.375 GM in SODIUM CHLORIDE 0.9% 100 ML IVPB SCH ×3 (00:43→18:02)
[2021-07-29 05:47] LABS: Glucose,Whole Blood 143 mg/dL (75-99)
[2021-07-29 06:17] LABS: ABG Base Excess -0.5 mmol/L; ABG HCO3 23 mmol/L (21-25); ABG PCO2 32 mmHg (35-45); ABG PH 7.47 (7.35-7.45); ABG PO2 104 mmHg (83-108); ABG TCO2 24 mmol/L (19-24); Allen Test Performed? Yes
[2021-07-29] MEDS: INSULIN DETEMIR (LEVEMIR) 100 UNIT/ML SYR SQ SCH (06:21)
[2021-07-29 06:41] LABS: Calcium 7.9 mg/dL (8.4-10.2); Phosphorus 3.6 mg/dL (2.5-4.5); Potassium 3.8 mmol/L (3.5-5.1)
[2021-07-29 08:13] LABS: Anisocytosis Slight; HCT 28.3 % (34.0-46.0); HGB 8.8 gm/dL (11.4-16.0); Hypochromasia Slight; MCH 28.6 pg (25.0-35.0); MCHC 31.2 g/dL (31.0-37.0); MCV 91.8 fL (80.0-100.0); Mean Platelet Volume 12.7; RBC 3.08 m/uL (3.80-5.40); RDW 17.8 % (11.5-15.5); WBC 20.4 k/uL (3.8-10.6)
--- NOTE | 2021-07-29 08:45 | P.PN ---
Subjective Patient is seen in follow-up for acute kidney injury. Renal function fairly stable. Nonoliguric. Underwent tracheostomy and PEG tube placement 07/27/2021. Receiving tube feeds. On IV Lasix. Vital signs stable. General: Tracheostomy noted. LUNGS: Breath sounds decreased. HEART: Regular rate and rhythm. ABDOMEN: Soft, no distention. EXTREMITITES: 1+ edema. Objective - Vital Signs Vital signs: Vital Signs Temp 98.2 F 07/29/21 08:00 Pulse 82 07/29/21 08:28 Resp 24 07/29/21 08:00 BP 126/70 07/26/21 08:00 Pulse Ox 98 07/29/21 08:00 Intake & Output 07/28/21 07/29/21 07/29/21 18:59 06:59 18:59 Intake Total 984.582 877 136 Output Total 990 765 135 Balance -5.418 112 1 Weight 82.5 kg Intake: IV 680 400 40 .9 kvo 20 240 40 Dextrose 5% in Water 1, 300 000 ml @ 50 mls/hr IV . Q20H [facility] Rx#:[id number] Mvi, Adult No.4 with Vit 360 60 K 10 ml Trace (Conc-1Ml/ Dose) 1 ml Potassium Acetate 20 meq Calcium Gluconate 1 gm Magnesium Sulfate gm 1 gm In Amino Acid 5%-D15w 1,000 ml @ 30 mls/hr IV .BY DURATION [facility] Rx#:[id number] Piperacillin-Tazobactam 3 100 .375 gm In Sodium Chloride 0.9% 100 ml @ 25 mls/hr IVPB Q8HR [facility] Rx# :[id number] Intake, IV Titration 44.582 Amount propofoL 1,000 mg In 44.582 Empty Bag 1 bag @ 5 MCG/ KG/MIN 2.514 mls/hr IV . Q24H [facility] Rx#:[id number] Tube Feeding 260 387 66 Other 90 30 Output: Urine 990 765 135 Other: Voiding Method Indwelling Catheter Indwelling Catheter # Voids 90 ABP, PAP, CO, CI - Last Documented Arterial Blood Pressure 156/60 - Labs CBC & Chem 7: 07/29/21 05:40 07/29/21 05:40 Labs: Abnormal Lab Results - Last 24 Hours (Table) 07/28/21 07/28/21 07/29/21 Range/Units 12:10 17:27 00:29 WBC (3.8-10.6) k/uL RBC (3.80-5.40) m/uL Hgb (11.4-16.0) gm/dL Hct (34.0-46.0) % RDW (11.5-15.5) % ABG pH (7.35-7.45) ABG pCO2 (35-45) mmHg ABG O2 Saturation (94-97) % Chloride (98-107) mmol/L BUN (7-17) mg/dL Creatinine (0.52-1.04) mg/dL Glucose (74-99) mg/dL POC Glucose (mg/dL) 178 H 212 H 162 H (75-99) mg/dL Calcium (8.4-10.2) mg/dL 07/29/21 07/29/21 07/29/21 Range/Units 05:40 05:40 05:46 WBC 20.4 H (3.8-10.6) k/uL RBC 3.08 L (3.80-5.40) m/uL Hgb 8.8 L (11.4-16.0) gm/dL Hct 28.3 L (34.0-46.0) % RDW 17.8 H (11.5-15.5) % ABG pH (7.35-7.45) ABG pCO2 (35-45) mmHg ABG O2 Saturation (94-97) % Chloride 109 H (98-107) mmol/L BUN 72 H (7-17) mg/dL Creatinine 1.11 H (0.52-1.04) mg/dL Glucose 138 H (74-99) mg/dL POC Glucose (mg/dL) 143 H (75-99) mg/dL Calcium 7.9 L (8.4-10.2) mg/dL 07/29/21 Range/Units 06:10 WBC (3.8-10.6) k/uL RBC (3.80-5.40) m/uL Hgb (11.4-16.0) gm/dL Hct (34.0-46.0) % RDW (11.5-15.5) % ABG pH 7.47 H (7.35-7.45) ABG pCO2 32 L (35-45) mmHg ABG O2 Saturation 98.0 H (94-97) % Chloride (98-107) mmol/L BUN (7-17) mg/dL Creatinine (0.52-1.04) mg/dL Glucose (74-99) mg/dL POC Glucose (mg/dL) (75-99) mg/dL Calcium (8.4-10.2) mg/dL Microbiology - Last 24 Hours (Table) 07/26/21 08:15 Gram Stain - Final Bronchoalviolar Lavage - Left Bronchial Washings Culture - Final Assessment and Plan Plan: Assessment: 1. Acute kidney injury secondary to ATN secondary to septic shock. Creatinine was 1.78 at admission and peaked at 4.57 - down to 0.96 07/28/21 - 1.11 today. Receiving Toradol for pain. Losartan also resumed. Nonoliguric. Unknown baseline renal function. Noted to be KELLY positive, complements low and double-stranded DNA antibody 8. Hepatitis and ANCA negative. anti-GBM negative. No monoclonality Need to rule out GN - patient has history of lupus - on steroids. Also component of obstructive uropathy - status post left ureteral stent placement this admission. With multi-organ failure as well as thrombocyt openia, there is concern for antiphospholipid syndrome. Elevated BUN due to acute kidney injury as well as steroids. 2. Septic shock secondary to pneumonia. Status post bronchoscopy. Off vasopressor support; on antibiotics. 3. Metabolic acidosis secondary to acute kidney injury and IV fluids. On oral bicarbonate. 4. Acute hypoxic respiratory failure secondary to pneumonia. Bronchial washin gs positive for Heidi. 5. Shock liver. Improved. 6. Hypokalemia from poor intake and diuresis. Replace. Better. 7. Hypomagnesemia from diuresis and poor intake. Replaced. Improved. 8. Left-sided hydronephrosis. Urology following. Status post left ureteral stent placement 07/16/2021. 9. Hypernatremia from lack of oral water intake. Improved with D5W. Now off fluids. 10. History of mitral valve repair. Plan: Maintain tube feeds. Maintain IV Lasix. Avoid nephrotoxins. Stop Toradol. Continue to monitor renal function and urine output. On steroids. Rheumatology following. Will need kidney biopsy once hemodynamically stable for definitive diagnosis/classification of lupus nephritis. Anti-cardiolipin antibody negative. PTT normal. No DVT noted on lower extremity Dopplers. Replace potassium and magnesium per protocol. Hold losartan for systolic blood pressure less than 120. Stop minoxidil. Add amlodipine if blood pressures staying persistently above 140/90.
--- NOTE | 2021-07-29 08:59 | P.PN ---
Subjective Progress Note Date: 07/29/21 Principal diagnosis: Shortness of breath. Pulmonary consult dated 07/10/2021. 69-year-old female, poor historian, who apparently was sent to the emergency department, from [facility] for pneumonia. The patient was recently also at [facility], for a pacemaker procedure. The patient complains of increasing shortness of breath, cough, congestion, and low saturations. She typically uses oxygen at 2 L/m, as needed. She is a heavy smoker in the past. She was admitted with a left lower lobe. She's currently on 6 L nasal cannula. She is not receiving any IV fluids. White count 3.6, hemoglobin 9.9, hematocrit 31.4, and platelet count 199,000. Sodium 141, potassium 4.3, chlorides 108, CO2 20, anion gap 13, BUN 35, and creatinine 1.93. Troponins were 0.[address] showed significant consolidation in the left lung base. Other findings in the other lung contreras were noted. Progress note dated 07/11/2021. 71-year-old female seen yesterday in consultation. She apparently was sent into the emergency department from [facility] for pneumonia. The patient came in complaining of shortness of breath, cough, chest congestion, and low saturations. Last night, right around midnight or so, her respiratory status worsened, and she was transferred to the intensive care unit, and placed on BiPAP. Currently, her BiPAP settings are 12/5 and 70%. She's not receiving any IV fluids. The patient is on Zosyn and azithromycin. Chest x-ray shows significant opacification of the left lung. I recommend significant chest physiotherapy. White count 12.5, hemoglobin 10.1, hematocrit 32.1, and platelet count 248,000. PT was 16 with an INR 1.6. Blood gases show pO2 of 61, pCO2 43, and pH is 7.27. This was apparently on 35% oxygen. Sodium 141, potassium 4, chlorides 112, CO2 21, BUN 42, and creatinine 1.60. Troponin 0.354. Chest x- ray shows extensive consolidation and volume loss in the left hemithorax. Progress note dated 07/12/2021. 71-year-old female again seen in room 254. The patient was admitted with a diagnosis of left-sided pneumonia. The patient developed acute respiratory failure, required transfer to the intensive care unit, and yesterday, was intubated and mechanically ventilated. The patient also had an arterial line placed, a central line placed, and did undergo bronchoscopy. She remains on mechanical ventilator, on volume assist control, rate 24, tidal volume 400, FiO2 60%, and PEEP of 10. Blood gases show a PaO2 of 223, pCO2 of 34, and a pH is 7.16. His blood gases were done on 80%. At that point, I started the patient on a sodium bicarbonate drip, with 2 ampules of sodium bicarbonate and D5W at 100 mL an hour. The patient remains on propofol at 15 mcg/kg/m and norepinephrine at 61 mcg/m. In addition, the patient is getting vital AF at 10 mL an hour. We have asked nephrology to see her. I've also asked for a cortisol level, and for her to be started on vasopressin. She is currently on Zosyn. White count 21.8, hemoglobin 10.4, hematocrit 32.6, platelet count 340,000. PTT is 28.8 with an INR of 2.9. Sodium 143, potassium 4.3, chlorides 117, CO2 13, anion gap 13, BUN 46, and creatinine 2.68. AST is 4763. ALT is 1213. Cortisol level was 55. Chest x-ray shows left greater than right airspace disease, although the findings in the left chest, are improved post intubation. Reevaluated today on 07/24/2021, patient was extubated yesterday, and so far she seems to be tolerating the extubation rather well. She is however on airvo with FiO2 of 70% and flow of 50 L/m., Patient has O2 saturation in the high 90s hence we'll titrate the FiO2 down to 60% or possibly 50% and obtaining an O2 saturation of 93% or better. Patient is hemodynamically stable, not requiring any pressors. She does have a paced rhythm, she is awake, alert, oriented, foll ows simple instructions, however she has a very weak cough. Recommended incentive spirometry at bedside, patient is scheduled to have a PICC line placed today, continues to have a left IJ central line in place today. And has been present since the of last month. Her sodium is elevated, hence the patient is on D5W at 100 mL per hour. Speech therapy to evaluate the patient today and assess his swallow evaluation, if the patient fails may consider Lasix again nasogastric tube for enteral feeding. WBC count today is 24.5 hemoglobin is 10.2. Her sodium is 149. BUN is improving creatinine is significantly improved down to 1.81 today and the patient is having good urine output. Liver enzymes have significantly improved over the last 1 week. Patient remains on Solu- Medrol, and I cut down the dose to 60 mg IV push every 8 hours. She is now off antibiotics as she received full course of treatment for presumptive pneumonia. Reevaluated today on 07/25/2021, patient remains extubated, patient was extubated 2 days ago, so far she seems to be tolerating the extubation well, however the patient remains marginal, she has a very poor cough, and she may be developing worsening left lower lobe atelectasis and consolidation based on the chest x-ray today. Patient is unable to clear secretions with her weak cough. Her chest x- ray continues to show bilateral pneumonia left more so than right, her renal functioning however is improving, and her creatinine is much better today compared to the last few days. Patient is able to follow instructions, remains profoundly weak. Her urine output seems to be excellent, in the last 24 hours, patient had 2420 in and 04/21/2004 out. Hence no plan to give the patient any Lasix at this time. She is in atrial flutter. Patient is hemodynamically stable, not requiring any pressors. She remains on airvo at 55% FiO2 and 50 L flow. O2 saturation is in the mid 90s. Multiple attempts have been made to place an orogastric tube in this patient or a nasogastric tube, and I could not place one even with a glidescope use, and direct visualization of the vocal cords, and for some reason the nasogastric tube goes into the vocal cords every time we have attempted. Could not get it into the area posterior to the vocal cords. At any rate may have to consider a PEG tube placement in this patient comes next week. Sodium remains elevated at 149, patient continues to receive D5W. Reevaluated today on 07/26/2021, patient took a downhill course early this morning around 4 AM, patient developed complete opacification of the left lung and she desaturated down. Picture of the chest x-ray was sent to me early this morning, and I recommended immediate intubation, mechanical ventilation, and I saw this patient this morning continues to have complete opacification of the left lung with ipsilateral deviation of the trachea consistent with mucous plugging of the left mainstem bronchus. Hence we'll write came in this morning, I evaluated the patient, and the first thing I did was to bronchoscope the patient cleared all the mucous plugs from the left mainstem bronchus, and I performed lavage of the left lung until completely cleared. Restarted the patient back on antibiotics to Zosyn, cultures from the BAL are pending. Patient is now again back on mechanical ventilation, and early this morning she was on assist control rate of 24th of volume 400 FiO2 100% and PEEP of 5. ABG shortly after she was intubated showed a pO2 of 77 pCO2 41 pH of 7.39. Patient is on propofol at 30 mcg/kg/m, she is on TPN at 50 mL per hour, but now that we have an orogastric tube in place, patient would have enteral feeding. Her urine output seems to be excellent. Her IV fluid is at D5W at 100 mL per hour. I recommended increasing back her Solu-Medrol, and she is active on Zosyn. I did consult Dr. paniagua as per family's request for tracheostomy evaluation, and he is apparently scheduling the patient for tracheostomy and PEG tube placement tomorrow. WBC count today is 26.5 hemoglobin is 10.5. Basic metabolic profile is normal creatinine is up a bit today up to 1.39. Patient did receive Lasix yesterday. And she had excellent urine output after the Lasix. Presently diuretics are on hold Progress note dated 07/27/2021. 71-year-old female admitted on July 09 for respiratory failure. She came to the intensive care unit on July 11, and was intubated on the same day. She was extubated on July 23, and unfortunately, was reintubated on July 26. He is currently on volume assist control, rate 24, tidal volume 400, FiO2 35%, PEEP of 5. Blood gases show pO2 of 101, pCO2 33, and a pH is 7.48. These blood gases are consistent with normoxemia and a respiratory alkalosis. The patient's getting D5W at 100 mL an hour, propofol at 20 mcg/kg/m, and TPN at 30 mL an hour. The patient will have a tracheostomy and PEG tube placement today. White count 22.6, hemoglobin 8.5, hematocrit 27.3, and platelet count 130,000. Sodium 140, potassium 2.9, chlorides 110, CO2 26, BUN 80, and creatinine 1.19. Albumin is 2.0. Chest x-rays consistent with bilateral airspace disease pleural effusion, left greater than right, and most consistent with fluid overload. Other than Heidi in the bronchial washings, microbiology has been negative. Progress note dated 07/28/2021. 72-year-old female, admitted on July 09 for respiratory failure. She came to the intensive care unit on July 11, and was intubated on the same day. She was extubated on July 23, and was reintubated on July 26. The patient had a tracheostomy and PEG tube placement on July 27. Ventilator settings include volume assist control, rate 24, tidal volume 400, FiO2 35%, and PEEP of 5, to be dropped down to 30%, and PEEP of 5. Blood gases show a PaO2 of 1:15, pCO2 of 31, and a pH is 7.49. Blood gases consistent with respiratory alkalosis. The patient remains on Zosyn and Diflucan. The patient's getting tube feedings with vital 1.2 at 20 mL an hour, with a goal of 33 mL an hour. The patient will have a spontaneous breathing trial today. The patient's getting dextrose at 50 mL an hour, TPN at 30 mL an hour, propofol at 10 mics per kilogram per minute. White count 20.7, hemoglobin 8.6, hematocrit 26.8, platelet count 129,000. Sodium 138, potassium 4.1, chlorides 109, CO2 23, BUN 68, and creatinine 0.96. AST of 66 with an ALT of 104. Albumin is 2. Chest x-ray is essentially unchanged and shows a bilateral interstitial pattern. Progress note dated 07/29/2021. 71-year-old female admitted on July 09 for respiratory failure. She came to the intensive care unit on July 11, and was intubated on the same day. She was extubated on the , and was reintubated on the . She had a tracheostomy and PEG tube placement on 07/27/2021. She remains on the mechanical ventilator. Currently, she is on volume assist control, rate 24, tidal volume 400, FiO2 30%, PEEP of 5. The gases show pO2 104, pCO2 32, and a pH is 7.47. She's getting saline at 20 mL an hour. TPN is been weaned off. She getting vital 1.2 at 33 mL an hour, which is goal. The patient will be placed on pressure support of 5 and CPAP of 5, and it hopefully transitioned to trach collar. White count 20.4, hemoglobin 8.8, hematocrit 28.3, and platelet count is currently pending. Sodium 140, potassium 3.8, chlorides 109, CO2 24, BUN 72, creatinine 1.11. Chest x-ray shows some retrocardiac density and/or infiltrate. Objective - Vital Signs Vital signs: Vital Signs Temp 98.2 F 07/29/21 08:00 Pulse 82 07/29/21 08:39 Resp 24 07/29/21 08:00 BP 126/70 07/26/21 08:00 Pulse Ox 98 07/29/21 08:00 Intake & Output 07/28/21 07/29/21 07/29/21 18:59 06:59 18:59 Intake Total 984.582 877 136 Output Total 990 765 135 Balance -5.418 112 1 Weight 82.5 kg Intake: IV 680 400 40 .9 kvo 20 240 40 Dextrose 5% in Water 1, 300 000 ml @ 50 mls/hr IV . Q20H [facility] Rx#:[id number] Mvi, Adult No.4 with Vit 360 60 K 10 ml Trace (Conc-1Ml/ Dose) 1 ml Potassium Acetate 20 meq Calcium Gluconate 1 gm Magnesium Sulfate gm 1 gm In Amino Acid 5%-D15w 1,000 ml @ 30 mls/hr IV .BY DURATION [facility] Rx#:[id number] Piperacillin-Tazobactam 3 100 .375 gm In Sodium Chloride 0.9% 100 ml @ 25 mls/hr IVPB Q8HR [facility] Rx# :[id number] Intake, IV Titration 44.582 Amount propofoL 1,000 mg In 44.582 Empty Bag 1 bag @ 5 MCG/ KG/MIN 2.514 mls/hr IV . Q24H [facility] Rx#:[id number] Tube Feeding 260 387 66 Other 90 30 Output: Urine 990 765 135 Other: Voiding Method Indwelling Catheter Indwelling Catheter # Voids 90 ABP, PAP, CO, CI - Last Documented Arterial Blood Pressure 156/60 - Exam Currently on the mechanical ventilator. Midline tracheostomy tube noted. HEENT examination is grossly unremarkable. Neck supple. Full range of motion. No adenopathy thyromegaly or neck vein distention. Cardiovascular examination reveals regular rhythm rate. S1-S2 normal. No S3 or S4. No discernible murmur noted. Heart sounds are very distant. Heart rate 82 bpm. Lungs reveal coarse bilateral rhonchi. Basilar crackles are appreciated. No wheezes. Breath sounds are equal bilaterally. Saturations are 98%. Abdomen soft bowel sounds are not heard. No masses or tenderness. PEG tube noted. Extremities are intact. No cyanosis clubbing or edema. Skin is without rash or lesion. Neurologic examination cannot be adequately assessed. - Labs CBC & Chem 7: 07/29/21 05:40 07/29/21 05:40 Labs: Abnormal Lab Results - Last 24 Hours (Table) 07/28/21 07/28/21 07/29/21 Range/Units 12:10 17:27 00:29 WBC (3.8-10.6) k/uL RBC (3.80-5.40) m/uL Hgb (11.4-16.0) gm/dL Hct (34.0-46.0) % RDW (11.5-15.5) % ABG pH (7.35-7.45) ABG pCO2 (35-45) mmHg ABG O2 Saturation (94-97) % Chloride (98-107) mmol/L BUN (7-17) mg/dL Creatinine (0.52-1.04) mg/dL Glucose (74-99) mg/dL POC Glucose (mg/dL) 178 H 212 H 162 H (75-99) mg/dL Calcium (8.4-10.2) mg/dL 07/29/21 07/29/21 07/29/21 Range/Units 05:40 05:40 05:46 WBC 20.4 H (3.8-10.6) k/uL RBC 3.08 L (3.80-5.40) m/uL Hgb 8.8 L (11.4-16.0) gm/dL Hct 28.3 L (34.0-46.0) % RDW 17.8 H (11.5-15.5) % ABG pH (7.35-7.45) ABG pCO2 (35-45) mmHg ABG O2 Saturation (94-97) % Chloride 109 H (98-107) mmol/L BUN 72 H (7-17) mg/dL Creatinine 1.11 H (0.52-1.04) mg/dL Glucose 138 H (74-99) mg/dL POC Glucose (mg/dL) 143 H (75-99) mg/dL Calcium 7.9 L (8.4-10.2) mg/dL 07/29/21 Range/Units 06:10 WBC (3.8-10.6) k/uL RBC (3.80-5.40) m/uL Hgb (11.4-16.0) gm/dL Hct (34.0-46.0) % RDW (11.5-15.5) % ABG pH 7.47 H (7.35-7.45) ABG pCO2 32 L (35-45) mmHg ABG O2 Saturation 98.0 H (94-97) % Chloride (98-107) mmol/L BUN (7-17) mg/dL Creatinine (0.52-1.04) mg/dL Glucose (74-99) mg/dL POC Glucose (mg/dL) (75-99) mg/dL Calcium (8.4-10.2) mg/dL Microbiology - Last 24 Hours (Table) 07/26/21 08:15 Gram Stain - Final Bronchoalviolar Lavage - Left Bronchial Washings Culture - Final Assessment and Plan Assessment: Acute hypoxemic respiratory failure secondary to left lower lobe pneumonia, status post intubation and mechanical ventilation as well as bronchoscopy on 07/11/2021, extubation on 07/23/2021, and reintubation on 07/26/2021. Septic shock, with multiorgan system failure. 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 S/P tracheostomy and PEG tube placement, 07/27/2021. CAD, status post bypass grafting. Acute hypoxemic respiratory failure secondary to pneumonia and COPD. History of COPD from previous significant tobacco use. History of hypertension. History of hyperlipidemia. Status post pacemaker implantation. Vague history of CHF. Plan: Plan dated 07/10/2021. Currently, the patient's on azithromycin and Zosyn. The patient is also getting any treatments with albuterol sulfate and ipratropium bromide. We will continue to follow make recommendations were appropriate. Prognosis is certainly guarded. The CAT scan, x-rays, and medications are all reviewed. The patient should have outpatient evaluation of her chronic lung disease once she is better and is discharged. Infectious disease should see this patient. Plan dated 07/11/2021. The patient was transferred to the intensive care unit for further monitoring and management. She was transferred sometime after midnight. She remains on BiPAP. Saturations are reasonable. Chest x-ray shows near complete opacification of the left lung. We recommend the right lung to be down, and significant chest physiotherapy to the left lung. Additional recommendations and suggestions are forthcoming. Labs, x-rays, and medications are reviewed. We'll continue to follow. Plan dated 07/12/2021. The patient was intubated and mechanically ventilated yesterday, 07/11/2021. In addition, an arterial line was placed, as well as a central line, and the patient underwent bronchoscopy. Currently everything is pending. The patient remains on the mechanical ventilator. She is on propofol at 15 mcg/kg/m, and norepinephrine at 61 mcg/m. I'm going to add vasopressin to her regimen. Will have nephrology see her for her worsening renal function and poor urine output. Cortisol level was adequate. She remains on Zosyn as per infectious diseases. I did have a very long conversation with her daughter. I explained to the daughter that we are giving her best supportive care. The patient remains a full code at this time. Plan dated 07/27/2021. The patient will undergo tracheostomy and PEG tube placement today. Was started on enteral nutrition. Blood gases show a respiratory alkalosis. No ventilator changes. We'll make sure the patient's on DuoNeb every 4 hours [id number]. Continue GI and DVT prophylaxis. Zosyn was started empirically. No additional recommendations are made. Prognosis is guarded. The patient remains on fluconazole. Labs, x-rays, and medications are all reviewed. Prognosis is guarded. We'll continue to follow the patient and make recommendations where appropriate. Plan dated 07/28/2021. The patient did have her PEG tube placement and tracheostomy performed yesterday. She continues on Zosyn and Diflucan. The patient is getting tube feedings with vital 1.2 at 20 mL an hour, with a goal of 33 mL an hour. The TPN will be stopped later today. Later today, the patient can have a daily interruption of sedation and a spontaneous breathing trial. Labs, x-rays, and medications are all reviewed. We will continue to follow the patient and make recommendations where appropriate. The patient's overall prognosis is very guarded. Plan dated 07/29/2021. Currently, the patient is on the volume assist control mode. Yesterday, she spent about 4 hours on pressure support. Today, we'll place her on pressure support again, and transition her to a trach collar. Labs, x-rays, and medications are all reviewed. The most recent computed tomography scan shows almost complete resolution of the previously seen hyperdense focus in the right parietal lobe. The patient remains on Zosyn. Additional recommendations suggestions are forthcoming. Solu-Medrol is discontinued. We will continue to follow the patient and make recommendations where appropriate. Prognosis is certainly guarded. Time with Patient: Greater than 30
[2021-07-29] MEDS ORDERED: TORSEMIDE 20 MG TAB PO SCH (09:00)
[2021-07-29] MEDS ORDERED: minoxidiL 2.5 MG TAB PO SCH (09:00)
--- NOTE | 2021-07-29 09:03 | XR ---
EXAMINATION TYPE: XR chest 1V portable DATE OF EXAM: 07/29/2021 COMPARISON: 07/28/2021 HISTORY: Tube placement TECHNIQUE: Single frontal view of the chest is obtained. FINDINGS: Right-sided central line is seen and there is a tracheostomy tube with tip approximately 5 cm above the nicho. NG tube is been removed. Cardiac device and postsurgical changes are noted. Chr onic rib cage deformity noted. Diffuse interstitial pattern with bilateral . Tubing is seen overlying the soft tissues of the right neck correlate clinically. Infiltrate and small effusion. Suggestion o f possible catheter or ureteral stent noted on the left. IMPRESSION: Bilateral interstitial pattern with lower lobe infiltrate and pleural effusion stable fr om previous exam.
[2021-07-29] MEDS: CHLORHEXIDINE GLUCONATE 15 ML CUP MUCOUS MEM SCH (09:09)
[2021-07-29] MEDS ORDERED: Potassium Replacement Protocol 1 EACH MISC MISCELLANE PRN (09:09)
[2021-07-29] MEDS: FUROSEMIDE 10 MG/ML 2 ML VIAL IV SCH (09:09)
[2021-07-29] MEDS: LOSARTAN 50 MG TAB PO SCH (09:16)
[2021-07-29] MEDS: NYSTATIN 100,000 UNIT/ML SUSP 500,000 UNIT/5 ML CUP PO SCH ×4 (09:16→21:00)
[2021-07-29] MEDS: SODIUM BICARBONATE TAB 650 MG TAB PO SCH ×2 (09:16→21:00)
[2021-07-29] MEDS: SPIRONOLACTONE 25 MG TAB PO SCH (09:16)
[2021-07-29] MEDS: LACTATED RINGERS 1,000 ML IV SCH (09:16)
[2021-07-29] MEDS ORDERED: POTASSIUM BICARBONATE/CIT AC 20 MEQ TABLET.EFF NG-TUBE SCH (10:00)
[2021-07-29 10:09] LABS: Platelet Count 105 k/uL (150-450)
--- NOTE | 2021-07-29 11:30 | P.PN ---
Subjective Progress Note Date: 07/29/21 CHIEF COMPLAINT: Respiratory failure HISTORY OF PRESENT ILLNESS: Patient is in the ICU. She is status post tracheostomy and PEG tube placement. Postop day #2. She is currently tolerating her tube feeds at 33 mL per hour. She did have 20 mL residual to feeds. She was started on trach collar today. Afebrile. WBC 20.4 hemoglobin 8.8 PHYSICAL EXAM: VITAL SIGNS: Reviewed. GENERAL: Well-developed in no acute distress. HEENT: Head is atraumatic, normocephalic. Tracheostomy site with clearish, p ink drainage noted ABDOMEN: Soft. Nondistended. PEG tube site clean dry and intact ASSESSMENT: 1. Acute hypoxic respiratory failure secondary to lupus pneumonitis and possible community acquired pneumonia status post tracheostomy placement 2. Severe protein calorie malnutrition status post PEG tube placement 3. Sepsis PLAN: -Continue to titrate to feedings -Okay to resume Coumadin from surgical standpoint -Continue supportive care -Continue ICU management Physician Assistant Manager Pt note has been reviewed by physician. Signing provider agrees with the documented findings, assessment, and plan of care. I have personally seen and examined the patient, reviewed the FORENSIC MANAGER /PAs history, exam and MDM and agree with the assessment and plan as written. Based on total visit time, I have performed more than 50% of the visit. As above: Patient had some bleeding from around the tracheostomy today. The dressing was removed. Some clots were evacuated from around the trach site. No active bleeding was seen. There does appear to be some saliva mixed with blood. Apparently she had had some nosebleeds. This could be coming from nasopharyngeal region. We'll monitor. Hold anticoagulation. Objective - Vital Signs Vital signs: Vital Signs Temp 98.2 F 07/29/21 08:00 Pulse 78 07/29/21 11:00 Resp 22 07/29/21 11:00 BP 127/69 07/29/21 11:00 Pulse Ox 98 07/29/21 11:00 Intake & Output 07/28/21 07/29/21 07/29/21 18:59 06:59 18:59 Intake Total 984.582 877 295 Output Total 990 765 990 Balance -5.418 112 -695 Weight 82.5 kg 82.5 kg Intake: IV 680 400 100 .9 kvo 20 240 100 Dextrose 5% in Water 1, 300 000 ml @ 50 mls/hr IV . Q20H [facility] Rx#:[id number] Mvi, Adult No.4 with Vit 360 60 K 10 ml Trace (Conc-1Ml/ Dose) 1 ml Potassium Acetate 20 meq Calcium Gluconate 1 gm Magnesium Sulfate gm 1 gm In Amino Acid 5%-D15w 1,000 ml @ 30 mls/hr IV .BY DURATION [facility] Rx#:[id number] Piperacillin-Tazobactam 3 100 .375 gm In Sodium Chloride 0.9% 100 ml @ 25 mls/hr IVPB Q8HR [facility] Rx# :[id number] Intake, IV Titration 44.582 Amount propofoL 1,000 mg In 44.582 Empty Bag 1 bag @ 5 MCG/ KG/MIN 2.514 mls/hr IV . Q24H [facility] Rx#:[id number] Tube Feeding 260 387 165 Other 90 30 Output: Urine 990 765 990 Other: Voiding Method Indwelling Catheter Indwelling Catheter # Voids 90 90 ABP, PAP, CO, CI - Last Documented Arterial Blood Pressure 163/56 - Labs CBC & Chem 7: 07/29/21 05:40 07/29/21 05:40 Labs: Abnormal Lab Results - Last 24 Hours (Table) 07/28/21 07/28/21 07/29/21 Range/Units 12:10 17:27 00:29 WBC (3.8-10.6) k/uL RBC (3.80-5.40) m/uL Hgb (11.4-16.0) gm/dL Hct (34.0-46.0) % RDW (11.5-15.5) % Plt Count (150-450) k/uL ABG pH (7.35-7.45) ABG pCO2 (35-45) mmHg ABG O2 Saturation (94-97) % Chloride (98-107) mmol/L BUN (7-17) mg/dL Creatinine (0.52-1.04) mg/dL Glucose (74-99) mg/dL POC Glucose (mg/dL) 178 H 212 H 162 H (75-99) mg/dL Calcium (8.4-10.2) mg/dL 07/29/21 07/29/21 07/29/21 Range/Units 05:40 05:40 05:46 WBC 20.4 H (3.8-10.6) k/uL RBC 3.08 L (3.80-5.40) m/uL Hgb 8.8 L (11.4-16.0) gm/dL Hct 28.3 L (34.0-46.0) % RDW 17.8 H (11.5-15.5) % Plt Count 105 L (150-450) k/uL ABG pH (7.35-7.45) ABG pCO2 (35-45) mmHg ABG O2 Saturation (94-97) % Chloride 109 H (98-107) mmol/L BUN 72 H (7-17) mg/dL Creatinine 1.11 H (0.52-1.04) mg/dL Glucose 138 H (74-99) mg/dL POC Glucose (mg/dL) 143 H (75-99) mg/dL Calcium 7.9 L (8.4-10.2) mg/dL 07/29/21 Range/Units 06:10 WBC (3.8-10.6) k/uL RBC (3.80-5.40) m/uL Hgb (11.4-16.0) gm/dL Hct (34.0-46.0) % RDW (11.5-15.5) % Plt Count (150-450) k/uL ABG pH 7.47 H (7.35-7.45) ABG pCO2 32 L (35-45) mmHg ABG O2 Saturation 98.0 H (94-97) % Chloride (98-107) mmol/L BUN (7-17) mg/dL Creatinine (0.52-1.04) mg/dL Glucose (74-99) mg/dL POC Glucose (mg/dL) (75-99) mg/dL Calcium (8.4-10.2) mg/dL Microbiology - Last 24 Hours (Table) 07/26/21 08:15 Gram Stain - Final Bronchoalviolar Lavage - Left Bronchial Washings Culture - Final
[2021-07-29 11:35] LABS: Glucose,Whole Blood 138 mg/dL (75-99)
[2021-07-29] MEDS: 1: MVI, ADULT NO.4 WITH VIT K 10 ML, TRACE (CONC-1ML/DOSE) 1 ML, POTASSIUM ACETATE 20 ME IV SCH ×6 (11:52)
--- NOTE | 2021-07-29 11:53 | P.PN ---
Subjective Progress Note Date: 07/29/21 The patient is seen at bedside and per nurse is doing better. Coumadin was not restarted yesterday since was not cleared by surgery team but gave clearance today. Objective - Vital Signs Vital signs: Vital Signs Temp 98.2 F 07/29/21 08:00 Pulse 76 07/29/21 11:30 Resp 22 07/29/21 11:00 BP 127/69 07/29/21 11:00 Pulse Ox 98 07/29/21 11:00 Intake & Output 07/28/21 07/29/21 07/29/21 18:59 06:59 18:59 Intake Total 984.582 877 295 Output Total 990 765 990 Balance -5.418 112 -695 Weight 82.5 kg 82.5 kg Intake: IV 680 400 100 .9 kvo 20 240 100 Dextrose 5% in Water 1, 300 000 ml @ 50 mls/hr IV . Q20H [facility] Rx#:[id number] Mvi, Adult No.4 with Vit 360 60 K 10 ml Trace (Conc-1Ml/ Dose) 1 ml Potassium Acetate 20 meq Calcium Gluconate 1 gm Magnesium Sulfate gm 1 gm In Amino Acid 5%-D15w 1,000 ml @ 30 mls/hr IV .BY DURATION [facility] Rx#:[id number] Piperacillin-Tazobactam 3 100 .375 gm In Sodium Chloride 0.9% 100 ml @ 25 mls/hr IVPB Q8HR [facility] Rx# :[id number] Intake, IV Titration 44.582 Amount propofoL 1,000 mg In 44.582 Empty Bag 1 bag @ 5 MCG/ KG/MIN 2.514 mls/hr IV . Q24H [facility] Rx#:[id number] Tube Feeding 260 387 165 Other 90 30 Output: Urine 990 765 990 Other: Voiding Method Indwelling Catheter Indwelling Catheter # Voids 90 90 ABP, PAP, CO, CI - Last Documented Arterial Blood Pressure 163/56 - Exam GENERAL: The patient is lying in bed and does not appear in acute distress. LUNG: Trach on ventilator. NEUROLOGICAL: Higher mental function: The patient is awake, alert. She is following simple commands. Cranial nerves: The pupils are round, equal, about 4-5mm bilaterally and reactive to light. Is tracking throughout the room. No facial weakness. Sticking her tongue out and moving sided to side without difficulty. Motor: The strength is limited but wiggles bilateral toes and has some movement in bilateral hands (left > right). Has significant edema of bilateral upper extremity (mostly distal). Cerebellum: Unable to assess. SOME OF THE WORK-UP: Ammonia level <9 Creatning on initial presentation is 1.78-->1.19 AST: 23-->400-->522-->46 ALT 9-->1800-->889-->100 KELLY is positive Double strand DNA ab Indeterminate, complement C3: 20 and c4:2.0 C-ANCA and P-ANCA are negative. Computed tomography scan of head 07/21/2021 revealed unchanged right posterior parietal subcortical white matter focus measuring 6 mm, likely representing small intraparenchymal hemorrhage. No additional evidence for new acute hemorrhage. She had two repeated CT head at 8pm on 07/15/2021 and today around 9ish am and no change. CT head on 07/28/2021: Almost complete resolution of the previously seen hyperdense focus in the right parietal lobe likely representing a resolving parenchymal bleeding. Stable right anterior frontal suspected small subarachnoid hemorrhage. No new intracranial bleeding or new mass effect. I personally reviewed the CT of the head and I agree with the reported. Regarding the suspected small subarachnoid hemorrhage that was not seen on the initial CT of the brain during this admission that was able to appreciate. EEG on 07/15/2021: This is an abnormal routine EEG. The background slowing is suggestive of severe encephalopathy. The triphasic wave are suggestive of likely toxic-metabolic etiology. Otherwise there is no focal slowing, epileptiform discharge or seizure on the EEG. EEG on 07/16/2021: This is an abnormal routine EEG. The background slowing is suggestive of severe encephalopathy. The triphasic wave are suggestive of likely toxic-metabolic etiology. Otherwise there is no focal slowing, epileptiform discharge or seizure on the EEG. Compared to the EEG from the pr ior day (07/15/2021), there is no change. - Labs CBC & Chem 7: 07/29/21 05:40 07/29/21 05:40 Labs: Abnormal Lab Results - Last 24 Hours (Table) 07/28/21 07/28/21 07/29/21 Range/Units 12:10 17:27 00:29 WBC (3.8-10.6) k/uL RBC (3.80-5.40) m/uL Hgb (11.4-16.0) gm/dL Hct (34.0-46.0) % RDW (11.5-15.5) % Plt Count (150-450) k/uL ABG pH (7.35-7.45) ABG pCO2 (35-45) mmHg ABG O2 Saturation (94-97) % Chloride (98-107) mmol/L BUN (7-17) mg/dL Creatinine (0.52-1.04) mg/dL Glucose (74-99) mg/dL POC Glucose (mg/dL) 178 H 212 H 162 H (75-99) mg/dL Calcium (8.4-10.2) mg/dL 07/29/21 07/29/21 07/29/21 Range/Units 05:40 05:40 05:46 WBC 20.4 H (3.8-10.6) k/uL RBC 3.08 L (3.80-5.40) m/uL Hgb 8.8 L (11.4-16.0) gm/dL Hct 28.3 L (34.0-46.0) % RDW 17.8 H (11.5-15.5) % Plt Count 105 L (150-450) k/uL ABG pH (7.35-7.45) ABG pCO2 (35-45) mmHg ABG O2 Saturation (94-97) % Chloride 109 H (98-107) mmol/L BUN 72 H (7-17) mg/dL Creatinine 1.11 H (0.52-1.04) mg/dL Glucose 138 H (74-99) mg/dL POC Glucose (mg/dL) 143 H (75-99) mg/dL Calcium 7.9 L (8.4-10.2) mg/dL 07/29/21 07/29/21 Range/Units 06:10 11:33 WBC (3.8-10.6) k/uL RBC (3.80-5.40) m/uL Hgb (11.4-16.0) gm/dL Hct (34.0-46.0) % RDW (11.5-15.5) % Plt Count (150-450) k/uL ABG pH 7.47 H (7.35-7.45) ABG pCO2 32 L (35-45) mmHg ABG O2 Saturation 98.0 H (94-97) % Chloride (98-107) mmol/L BUN (7-17) mg/dL Creatinine (0.52-1.04) mg/dL Glucose (74-99) mg/dL POC Glucose (mg/dL) 138 H (75-99) mg/dL Calcium (8.4-10.2) mg/dL Microbiology - Last 24 Hours (Table) 07/26/21 08:15 Gram Stain - Final Bronchoalviolar Lavage - Left Bronchial Washings Culture - Final Assessment and Plan Assessment: Acute small Hemorrhagic stroke over the right parietal---resolving and possible subarachnoid over the right frontal: Unsure cause. Possibly could be due to episode of supratherapeutic INR (was as steve as 6.4 that she received reversal on 07/13 and currently 1.5)---hemorrhage over the right parietal almost resolved and image is stable. 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 ---mentation improving. Septic shock with multisystem organ failure History of Lupus for years Acute kidney injury--improving Acute hypoxic respiratory failure due to left lung pneumonia indicating Heidi albicans s/p Trach on 07/27/2021 Acute shock liver-trending down Acute Coumadin toxicity that received reversal improved and INR is subtherapeutic History of coronary artery disease status post the CABG s/p Pacemaker on coumadin Valvular heart surgery Hypertension Hyperlipidemia Plan: CT head on 07/28/2021: Almost complete resolution of the previously seen hyperdense focus in the right parietal lobe likely representing a resolving parenchymal bleeding. Stable right anterior frontal suspected small subarachnoid hemorrhage. No new intracranial bleeding or new mass effect. I personally reviewed the CT of the head and I agree with the reported. Regarding the suspected small subarachnoid hemorrhage that was not seen on the initial CT of the brain during this admission that was able to appreciate. I reviewed the images with patient's daughter who is at bedside and she would like to restart the patient on Coumadin (she is aware of risk of bleed but if aware there is also risk of stroke without anticoagulation). Recommend INR goal to be between 2-3 (and if possible keep between 2-2.5). Obtain CT head 24 hours post anticoagulation and another repeat within 10 days f rom start on anticoagulation unless has worsening of neurological symptoms then earlier. Nephrology team is on board. Will defer the rest of medical management to the primary and ICU team. The patient needs to follow-up with a neurologist as outpatient within 1-2 weeks upon discharge. The plan is discussed with her nurse. Tremaine Mcguire M.D. Neuro-hospitalist Time with Patient: Less than 30
--- NOTE | 2021-07-29 15:20 | PN ---
PROGRESS NOTE This patient is a 71-year-old white female. We going to start her on blood thinners today. She is doing much better. We are not going to restart it because she has some bleeding out of her trach tube. Otherwise, she was cleared to give anticoagulants. Family wants them given, but Dr. Ambriz wants it held today, which we will do. Blood pressure 127/69, O2 98, pulse 76, respiratory rate 22, temperature 98.2. Medicine reviewed. Vital signs are reviewed. Pupils are equal and reactive. No facial weakness. She smiles. Cardiovascular S1-S2. Lungs clear. ASSESSMENT: 1. Right parietal hemorrhagic stroke, resolved. 2. Subtherapeutic INR. 3. Myopathy. 4. Neuropathy. 5. Septic encephalopathy. 6. Lupus encephalopathy. 7. Acute kidney injury, resolved. 8. Heidi albicans pneumonia. Possibly start blood thinners especially once cleared by Hematology, which we will consult. Prognosis is guarded but appears to be improving. She has improved every day since we started high-dose steroids for the lupus. Please see further orders. MMODL / IJN: [id number] /
[2021-07-29] MEDS ORDERED: LACTATED RINGERS 1,000 ML IV ONE (16:26)
[2021-07-29] MEDS ORDERED: MIDAZOLAM 2 MG/2 ML VIAL ONE (16:30)
[2021-07-29] MEDS ORDERED: KETAMINE 10 MG/ML 20 ML VIAL ONE (16:30)
[2021-07-29] MEDS ORDERED: fentaNYL (PF) 50 MCG/ML 2 ML AMP ONE (16:30)
[2021-07-29] MEDS ORDERED: PROPOFOL 10 MG/ML 20 ML VIAL IV ONE (16:30)
--- NOTE | 2021-07-29 16:57 | P.OP ---
Date of Procedure: 07/29/21 Procedure(s) Performed: PREOPERATIVE DIAGNOSIS: Tracheostomy site bleeding POSTOPERATIVE DIAGNOSIS: Same PROCEDURE: Evaluation and control tracheostomy site bleeding SURGEON: Pb EBL: 5 mL ANESTHESIA: Gen. COMPLICATIONS: None OPERATIVE PROCEDURE: Patient was kept in the ICU room for the procedure. The pa tient was placed under general anesthesia. The site was prepped with Betadine spray. The previous sutures were removed. A clot was seen adherent to the left side of the tracheostomy defect. This was evacuated. A small area of oozing from the strap muscle was seen and cauterized. This did not appear to be enough to explain the amount of blood seen. I could visualize all of the operative site with out any difficulty. No active bleeding was seen. I was able to visualize some clot sitting above the tracheostomy in the trachea itself. I still question whether some of this bleeding was coming from the nasopharyngeal region. The area was irrigated. Again no bleeding was seen. I decided to leave the wound open for now. The wound was packed with one-inch Elis roll. A drain sponge was then applied. DISPOSITION: Stable
[2021-07-29] MEDS: FLUCONAZOLE IN NACL,ISO-OSM 200 MG in SALINE 1 100ML.BAG IVPB SCH (18:03)
[2021-07-29 18:05] LABS: Anisocytosis Slight; HCT 25.2 % (34.0-46.0); HGB 8.1 gm/dL (11.4-16.0); Hypochromasia Slight; MCH 29.3 pg (25.0-35.0); MCV 91.6 fL (80.0-100.0); Mean Platelet Volume 12.4; RBC 2.75 m/uL (3.80-5.40); WBC 19.5 k/uL (3.8-10.6)
[2021-07-29 18:18] LABS: Glucose,Whole Blood 110 mg/dL (75-99)
[2021-07-29 18:25] LABS: Platelet Count 94 k/uL (150-450)
[2021-07-30 00:22] LABS: Glucose,Whole Blood 157 mg/dL (75-99)
[2021-07-30] MEDS: INSULIN ASPART (NovoLOG) 100 UNIT/ML VIAL SQ SCH ×4 (00:25→18:52)
[2021-07-30] MEDS: METOCLOPRAMIDE 5 MG/ML 2 ML VIAL IVP SCH ×4 (00:25→17:10)
[2021-07-30] MEDS: PIPERACILLIN-TAZOBACTAM 3.375 GM in SODIUM CHLORIDE 0.9% 100 ML IVPB SCH ×3 (00:25→16:06)
[2021-07-30] MEDS: IPRATROPIUM-ALBUTEROL 3 ML NEB INHALATION SCH ×5 (03:24→20:40)
[2021-07-30 06:21] LABS: Glucose,Whole Blood 129 mg/dL (75-99)
[2021-07-30] MEDS: INSULIN DETEMIR (LEVEMIR) 100 UNIT/ML SYR SQ SCH (06:35)
--- NOTE | 2021-07-30 07:03 | P.PN ---
Subjective Progress Note Date: 07/29/21 Principal diagnosis: Pneumonia Patient is a 71-year-old female with a past medical history significant for COPD and recent admission to [facility] for pneumonia pr esented to hospital with increasing shortness of breath and cough with a CT suspicious for left lower lobe pneumonia. The patient is status post cystoscopy and left ureteral stent placement completed on 07/16/2021, the patient went into respiratory distress evening of 07/25/2021 and got reintubated, the patient is status post bronchoscopy completed on 07/26/2021, patient is scheduled for a trach and PEG 07/27/2021 On today's evaluation that is 07/29/2021, the patient is afebrile , the patient is hemodynamically stable not requiring any pressor support the patient FiO2 is stable at 30%, patient was noticed to have a bleeding around the ET, patient to be tolerating her tube feeds and no diarrhea reported by nursing staff Objective - Vital Signs Vital signs: Vital Signs Temp 98.2 F 07/29/21 08:00 Pulse 76 07/29/21 11:54 Resp 22 07/29/21 11:00 BP 127/69 07/29/21 11:00 Pulse Ox 98 07/29/21 11:00 Intake & Output 07/28/21 07/29/21 07/29/21 18:59 06:59 18:59 Intake Total 984.582 877 295 Output Total 990 765 990 Balance -5.418 112 -695 Weight 82.5 kg 82.5 kg Intake: IV 680 400 100 .9 kvo 20 240 100 Dextrose 5% in Water 1, 300 000 ml @ 50 mls/hr IV . Q20H [facility] Rx#:[id number] Mvi, Adult No.4 with Vit 360 60 K 10 ml Trace (Conc-1Ml/ Dose) 1 ml Potassium Acetate 20 meq Calcium Gluconate 1 gm Magnesium Sulfate gm 1 gm In Amino Acid 5%-D15w 1,000 ml @ 30 mls/hr IV .BY DURATION [facility] Rx#:[id number] Piperacillin-Tazobactam 3 100 .375 gm In Sodium Chloride 0.9% 100 ml @ 25 mls/hr IVPB Q8HR [facility] Rx# :[id number] Intake, IV Titration 44.582 Amount propofoL 1,000 mg In 44.582 Empty Bag 1 bag @ 5 MCG/ KG/MIN 2.514 mls/hr IV . Q24H [facility] Rx#:[id number] Tube Feeding 260 387 165 Other 90 30 Output: Urine 990 765 990 Other: Voiding Method Indwelling Catheter Indwelling Catheter # Voids 90 90 ABP, PAP, CO, CI - Last Documented Arterial Blood Pressure 163/56 - Exam GENERAL DESCRIPTION: An elderly female intubated on the vent RESPIRATORY SYSTEM: Unlabored breathing , decreased breath sounds at bases HEART: S1 S2 regular rate and rhythm , ABDOMEN: Soft , no tenderness EXTREMITIES: No edema feet - Labs CBC & Chem 7: 07/29/21 17:48 07/29/21 05:40 Labs: Abnormal Lab Results - Last 24 Hours (Table) 07/28/21 07/29/21 07/29/21 Range/Units 17:27 00:29 05:40 WBC (3.8-10.6) k/uL RBC (3.80-5.40) m/uL Hgb (11.4-16.0) gm/dL Hct (34.0-46.0) % RDW (11.5-15.5) % Plt Count (150-450) k/uL ABG pH (7.35-7.45) ABG pCO2 (35-45) mmHg ABG O2 Saturation (94-97) % Chloride 109 H (98-107) mmol/L BUN 72 H (7-17) mg/dL Creatinine 1.11 H (0.52-1.04) mg/dL Glucose 138 H (74-99) mg/dL POC Glucose (mg/dL) 212 H 162 H (75-99) mg/dL Calcium 7.9 L (8.4-10.2) mg/dL 07/29/21 07/29/21 07/29/21 Range/Units 05:40 05:46 06:10 WBC 20.4 H (3.8-10.6) k/uL RBC 3.08 L (3.80-5.40) m/uL Hgb 8.8 L (11.4-16.0) gm/dL Hct 28.3 L (34.0-46.0) % RDW 17.8 H (11.5-15.5) % Plt Count 105 L (150-450) k/uL ABG pH 7.47 H (7.35-7.45) ABG pCO2 32 L (35-45) mmHg ABG O2 Saturation 98.0 H (94-97) % Chloride (98-107) mmol/L BUN (7-17) mg/dL Creatinine (0.52-1.04) mg/dL Glucose (74-99) mg/dL POC Glucose (mg/dL) 143 H (75-99) mg/dL Calcium (8.4-10.2) mg/dL 07/29/21 Range/Units 11:33 WBC (3.8-10.6) k/uL RBC (3.80-5.40) m/uL Hgb (11.4-16.0) gm/dL Hct (34.0-46.0) % RDW (11.5-15.5) % Plt Count (150-450) k/uL ABG pH (7.35-7.45) ABG pCO2 (35-45) mmHg ABG O2 Saturation (94-97) % Chloride (98-107) mmol/L BUN (7-17) mg/dL Creatinine (0.52-1.04) mg/dL Glucose (74-99) mg/dL POC Glucose (mg/dL) 138 H (75-99) mg/dL Calcium (8.4-10.2) mg/dL Microbiology - Last 24 Hours (Table) 07/26/21 08:15 Gram Stain - Final Bronchoalviolar Lavage - Left Bronchial Washings Culture - Final Assessment and Plan (1) Pneumonia Current Visit: Yes Status: Acute Code(s): J18.9 - PNEUMONIA, UNSPECIFIED ORGANISM SNOMED Code(s): 160151767 Plan: 1patient presented to hospital with acute respiratory failure with in this patient did have hypoxemia increasing shortness of breath and cough with evidence of left lower lobe pneumonia on the CT and recently admitted and treated at [facility] and concerning for a gram-negative pneumonia sputum and bronchial culture were negative , patient did have initial improvement however subsequently did have worsening of respiratory status requiring intubation possible mucus plugging status post bronchoscopy and repeat culture which are currently pending, patient is status post trach and PEG to continue with Zosyn and respiratory support Time with Patient: Less than 30
[2021-07-30] MEDS: SODIUM BICARBONATE TAB 650 MG TAB PO SCH (08:19)
[2021-07-30] MEDS: SPIRONOLACTONE 25 MG TAB PO SCH (08:19)
[2021-07-30] MEDS: LOSARTAN 50 MG TAB PO SCH (08:19)
[2021-07-30] MEDS: FUROSEMIDE 10 MG/ML 2 ML VIAL IV SCH (08:19)
[2021-07-30] MEDS: SODIUM CHLORIDE 0.9% 1,000 ML IV SCH ×2 (08:21→08:24)
[2021-07-30] MEDS: NYSTATIN 100,000 UNIT/ML SUSP 500,000 UNIT/5 ML CUP PO SCH ×4 (08:24→21:37)
[2021-07-30 08:29] LABS: Anisocytosis Slight; HCT 25.9 % (34.0-46.0); Hypochromasia Slight; MCH 28.3 pg (25.0-35.0); MCHC 30.8 g/dL (31.0-37.0); MCV 91.8 fL (80.0-100.0); Mean Platelet Volume 12.4; RBC 2.82 m/uL (3.80-5.40); RDW 18.6 % (11.5-15.5); WBC 19.5 k/uL (3.8-10.6)
[2021-07-30 08:32] LABS: INR 1.1 (<1.2)
--- NOTE | 2021-07-30 08:38 | XR ---
EXAMINATION TYPE: XR chest 1V portable DATE OF EXAM: 07/30/2021 Comparison: 07/29/2021 Clinical History: 71-year-old female Tube placement Findings: The left anterior chest wall pacemaker generator with right ventricular lead. Median sternotomy wires and prosthetic cardiac valve. Heart upper limits of normal in size. Leftward patient rotation alters normal cardiac and mediastinal contours. Hyperinflation. Patchy interstitial change throughout the l eft lung and continued dense retrocardiac and left basilar opacity. Right PICC tip at the cavoatrial junction. Tracheostomy cannula. Impression: Limited rotated exam. There is COPD and ongoing dense retrocardiac and left basilar opacity along wit h interstitial changes throughout the left lung.
[2021-07-30 08:57] LABS: Calcium 7.4 mg/dL (8.4-10.2); Potassium 3.9 mmol/L (3.5-5.1)
--- NOTE | 2021-07-30 09:39 | P.PN ---
Subjective Progress Note Date: 07/30/21 Principal diagnosis: Shortness of breath. Pulmonary consult dated 07/10/2021. 69-year-old female, poor historian, who apparently was sent to the emergency department, from [facility] for pneumonia. The patient was recently also at [facility], for a pacemaker procedure. The patient complains of increasing shortness of breath, cough, congestion, and low saturations. She typically uses oxygen at 2 L/m, as needed. She is a heavy smoker in the past. She was admitted with a left lower lobe. She's currently on 6 L nasal cannula. She is not receiving any IV fluids. White count 3.6, hemoglobin 9.9, hematocrit 31.4, and platelet count 199,000. Sodium 141, potassium 4.3, chlorides 108, CO2 20, anion gap 13, BUN 35, and creatinine 1.93. Troponins were 0.[address] showed significant consolidation in the left lung base. Other findings in the other lung contreras were noted. Progress note dated 07/11/2021. 71-year-old female seen yesterday in consultation. She apparently was sent into the emergency department from [facility] for pneumonia. The patient came in complaining of shortness of breath, cough, chest congestion, and low saturations. Last night, right around midnight or so, her respiratory status worsened, and she was transferred to the intensive care unit, and placed on BiPAP. Currently, her BiPAP settings are 12/5 and 70%. She's not receiving any IV fluids. The patient is on Zosyn and azithromycin. Chest x-ray shows significant opacification of the left lung. I recommend significant chest physiotherapy. White count 12.5, hemoglobin 10.1, hematocrit 32.1, and platelet count 248,000. PT was 16 with an INR 1.6. Blood gases show pO2 of 61, pCO2 43, and pH is 7.27. This was apparently on 35% oxygen. Sodium 141, potassium 4, chlorides 112, CO2 21, BUN 42, and creatinine 1.60. Troponin 0.354. Chest x- ray shows extensive consolidation and volume loss in the left hemithorax. Progress note dated 07/12/2021. 71-year-old female again seen in room 254. The patient was admitted with a diagnosis of left-sided pneumonia. The patient developed acute respiratory failure, required transfer to the intensive care unit, and yesterday, was intubated and mechanically ventilated. The patient also had an arterial line placed, a central line placed, and did undergo bronchoscopy. She remains on mechanical ventilator, on volume assist control, rate 24, tidal volume 400, FiO2 60%, and PEEP of 10. Blood gases show a PaO2 of 223, pCO2 of 34, and a pH is 7.16. His blood gases were done on 80%. At that point, I started the patient on a sodium bicarbonate drip, with 2 ampules of sodium bicarbonate and D5W at 100 mL an hour. The patient remains on propofol at 15 mcg/kg/m and norepinephrine at 61 mcg/m. In addition, the patient is getting vital AF at 10 mL an hour. We have asked nephrology to see her. I've also asked for a cortisol level, and for her to be started on vasopressin. She is currently on Zosyn. White count 21.8, hemoglobin 10.4, hematocrit 32.6, platelet count 340,000. PTT is 28.8 with an INR of 2.9. Sodium 143, potassium 4.3, chlorides 117, CO2 13, anion gap 13, BUN 46, and creatinine 2.68. AST is 4763. ALT is 1213. Cortisol level was 55. Chest x-ray shows left greater than right airspace disease, although the findings in the left chest, are improved post intubation. Reevaluated today on 07/24/2021, patient was extubated yesterday, and so far she seems to be tolerating the extubation rather well. She is however on airvo with FiO2 of 70% and flow of 50 L/m., Patient has O2 saturation in the high 90s hence we'll titrate the FiO2 down to 60% or possibly 50% and obtaining an O2 saturation of 93% or better. Patient is hemodynamically stable, not requiring any pressors. She does have a paced rhythm, she is awake, alert, oriented, foll ows simple instructions, however she has a very weak cough. Recommended incentive spirometry at bedside, patient is scheduled to have a PICC line placed today, continues to have a left IJ central line in place today. And has been present since the of last month. Her sodium is elevated, hence the patient is on D5W at 100 mL per hour. Speech therapy to evaluate the patient today and assess his swallow evaluation, if the patient fails may consider Lasix again nasogastric tube for enteral feeding. WBC count today is 24.5 hemoglobin is 10.2. Her sodium is 149. BUN is improving creatinine is significantly improved down to 1.81 today and the patient is having good urine output. Liver enzymes have significantly improved over the last 1 week. Patient remains on Solu- Medrol, and I cut down the dose to 60 mg IV push every 8 hours. She is now off antibiotics as she received full course of treatment for presumptive pneumonia. Reevaluated today on 07/25/2021, patient remains extubated, patient was extubated 2 days ago, so far she seems to be tolerating the extubation well, however the patient remains marginal, she has a very poor cough, and she may be developing worsening left lower lobe atelectasis and consolidation based on the chest x-ray today. Patient is unable to clear secretions with her weak cough. Her chest x- ray continues to show bilateral pneumonia left more so than right, her renal functioning however is improving, and her creatinine is much better today compared to the last few days. Patient is able to follow instructions, remains profoundly weak. Her urine output seems to be excellent, in the last 24 hours, patient had 2420 in and 04/21/2004 out. Hence no plan to give the patient any Lasix at this time. She is in atrial flutter. Patient is hemodynamically stable, not requiring any pressors. She remains on airvo at 55% FiO2 and 50 L flow. O2 saturation is in the mid 90s. Multiple attempts have been made to place an orogastric tube in this patient or a nasogastric tube, and I could not place one even with a glidescope use, and direct visualization of the vocal cords, and for some reason the nasogastric tube goes into the vocal cords every time we have attempted. Could not get it into the area posterior to the vocal cords. At any rate may have to consider a PEG tube placement in this patient comes next week. Sodium remains elevated at 149, patient continues to receive D5W. Reevaluated today on 07/26/2021, patient took a downhill course early this morning around 4 AM, patient developed complete opacification of the left lung and she desaturated down. Picture of the chest x-ray was sent to me early this morning, and I recommended immediate intubation, mechanical ventilation, and I saw this patient this morning continues to have complete opacification of the left lung with ipsilateral deviation of the trachea consistent with mucous plugging of the left mainstem bronchus. Hence we'll write came in this morning, I evaluated the patient, and the first thing I did was to bronchoscope the patient cleared all the mucous plugs from the left mainstem bronchus, and I performed lavage of the left lung until completely cleared. Restarted the patient back on antibiotics to Zosyn, cultures from the BAL are pending. Patient is now again back on mechanical ventilation, and early this morning she was on assist control rate of 24th of volume 400 FiO2 100% and PEEP of 5. ABG shortly after she was intubated showed a pO2 of 77 pCO2 41 pH of 7.39. Patient is on propofol at 30 mcg/kg/m, she is on TPN at 50 mL per hour, but now that we have an orogastric tube in place, patient would have enteral feeding. Her urine output seems to be excellent. Her IV fluid is at D5W at 100 mL per hour. I recommended increasing back her Solu-Medrol, and she is active on Zosyn. I did consult Dr. paniagua as per family's request for tracheostomy evaluation, and he is apparently scheduling the patient for tracheostomy and PEG tube placement tomorrow. WBC count today is 26.5 hemoglobin is 10.5. Basic metabolic profile is normal creatinine is up a bit today up to 1.39. Patient did receive Lasix yesterday. And she had excellent urine output after the Lasix. Presently diuretics are on hold Progress note dated 07/27/2021. 71-year-old female admitted on July 09 for respiratory failure. She came to the intensive care unit on July 11, and was intubated on the same day. She was extubated on July 23, and unfortunately, was reintubated on July 26. He is currently on volume assist control, rate 24, tidal volume 400, FiO2 35%, PEEP of 5. Blood gases show pO2 of 101, pCO2 33, and a pH is 7.48. These blood gases are consistent with normoxemia and a respiratory alkalosis. The patient's getting D5W at 100 mL an hour, propofol at 20 mcg/kg/m, and TPN at 30 mL an hour. The patient will have a tracheostomy and PEG tube placement today. White count 22.6, hemoglobin 8.5, hematocrit 27.3, and platelet count 130,000. Sodium 140, potassium 2.9, chlorides 110, CO2 26, BUN 80, and creatinine 1.19. Albumin is 2.0. Chest x-rays consistent with bilateral airspace disease pleural effusion, left greater than right, and most consistent with fluid overload. Other than Heidi in the bronchial washings, microbiology has been negative. Progress note dated 07/28/2021. 72-year-old female, admitted on July 09 for respiratory failure. She came to the intensive care unit on July 11, and was intubated on the same day. She was extubated on July 23, and was reintubated on July 26. The patient had a tracheostomy and PEG tube placement on July 27. Ventilator settings include volume assist control, rate 24, tidal volume 400, FiO2 35%, and PEEP of 5, to be dropped down to 30%, and PEEP of 5. Blood gases show a PaO2 of 1:15, pCO2 of 31, and a pH is 7.49. Blood gases consistent with respiratory alkalosis. The patient remains on Zosyn and Diflucan. The patient's getting tube feedings with vital 1.2 at 20 mL an hour, with a goal of 33 mL an hour. The patient will have a spontaneous breathing trial today. The patient's getting dextrose at 50 mL an hour, TPN at 30 mL an hour, propofol at 10 mics per kilogram per minute. White count 20.7, hemoglobin 8.6, hematocrit 26.8, platelet count 129,000. Sodium 138, potassium 4.1, chlorides 109, CO2 23, BUN 68, and creatinine 0.96. AST of 66 with an ALT of 104. Albumin is 2. Chest x-ray is essentially unchanged and shows a bilateral interstitial pattern. Progress note dated 07/29/2021. 71-year-old female admitted on July 09 for respiratory failure. She came to the intensive care unit on July 11, and was intubated on the same day. She was extubated on the , and was reintubated on the . She had a tracheostomy and PEG tube placement on 07/27/2021. She remains on the mechanical ventilator. Currently, she is on volume assist control, rate 24, tidal volume 400, FiO2 30%, PEEP of 5. The gases show pO2 104, pCO2 32, and a pH is 7.47. She's getting saline at 20 mL an hour. TPN is been weaned off. She getting vital 1.2 at 33 mL an hour, which is goal. The patient will be placed on pressure support of 5 and CPAP of 5, and it hopefully transitioned to trach collar. White count 20.4, hemoglobin 8.8, hematocrit 28.3, and platelet count is currently pending. Sodium 140, potassium 3.8, chlorides 109, CO2 24, BUN 72, creatinine 1.11. Chest x-ray shows some retrocardiac density and/or infiltrate. Progress note dated 07/30/2021. 71-year-old female admitted back on July 09 for respiratory failure. She came to the intensive care unit on July 11, and was intubated on the same day, extubated on the fifth, and reintubated on the . She underwent tracheostomy and PEG tube placement on 07/27/2021. Yesterday, the patient has some bleeding around the trach site. The surgeon ended up cauterizing the bleeding areas. Currently, she back on volume assist control. Yesterday, before the surgical procedure, she was on trach collar. She's on volume assist control, rate 24, tidal volume 400, FiO2 30%, and PEEP of 5. No blood gases today. The patient remains on Zosyn and Diflucan. The patient's getting saline at 20 mL an hour. In addition, the patient's getting vital AF at 47 mL an hour, which is goal. We will attempt again today to transition the patient from volume assist control, pressure support ventilation, to trach collar. The goal is [facility]. The patient will be started back on her Coumadin. The patient will have a repeat computed tomography scan. Laboratory data includes a white count of 19.5, hemoglobin 8, hematocrit 25.9, and a platelet count which is currently pending. Sodium and potassium normal. Chlorides 112, CO2 24, BUN 72, and creatinine 0 .95., Chest x-rays are unchanged. Objective - Vital Signs Vital signs: Vital Signs Temp 99.1 F 07/30/21 08:00 Pulse 84 07/30/21 08:00 Resp 24 07/30/21 08:00 BP 129/68 07/30/21 08:00 Pulse Ox 94 L 07/30/21 08:00 Intake & Output 07/29/21 07/30/21 07/30/21 18:59 06:59 18:59 Intake Total 924 941 164 Output Total 1560 905 135 Balance -636 36 29 Weight 82.5 kg 79.6 kg Intake: IV 340 240 40 .9 kvo 240 240 40 Tube Feeding 494 611 94 Other 90 90 30 Output: Urine 1555 905 135 Estimated Blood Loss 5 Other: Voiding Method Indwelling Catheter Indwelling Catheter Indwelling Catheter # Voids 90 ABP, PAP, CO, CI - Last Documented Arterial Blood Pressure 163/56 - Exam Currently on the mechanical ventilator. Midline tracheostomy tube noted. HEENT examination is grossly unremarkable. Neck supple. Full range of motion. No adenopathy thyromegaly or neck vein distention. Cardiovascular examination reveals regular rhythm rate. S1-S2 normal. No S3 or S4. No discernible murmur noted. Heart sounds are very distant. Heart rate 84 bpm. Lungs reveal coarse bilateral rhonchi. Basilar crackles are appreciated. No wheezes. Breath sounds are equal bilaterally. Saturations are 95%. Abdomen soft bowel sounds are not heard. No masses or tenderness. PEG tube noted. Extremities are intact. No cyanosis clubbing or edema. Skin is without rash or lesion. Neurologic examination is stable. - Labs CBC & Chem 7: 07/30/21 07:13 07/30/21 07:13 Labs: Abnormal Lab Results - Last 24 Hours (Table) 07/29/21 07/29/21 07/29/21 Range/Units 05:40 11:33 17:48 WBC 19.5 H (3.8-10.6) k/uL RBC 2.75 L (3.80-5.40) m/uL Hgb 8.1 L (11.4-16.0) gm/dL Hct 25.2 L (34.0-46.0) % MCHC (31.0-37.0) g/dL RDW 18.0 H (11.5-15.5) % Plt Count 105 L 94 L (150-450) k/uL Chloride (98-107) mmol/L BUN (7-17) mg/dL Glucose (74-99) mg/dL POC Glucose (mg/dL) 138 H (75-99) mg/dL Calcium (8.4-10.2) mg/dL 07/29/21 07/30/21 07/30/21 Range/Units 18:16 00:20 06:19 WBC (3.8-10.6) k/uL RBC (3.80-5.40) m/uL Hgb (11.4-16.0) gm/dL Hct (34.0-46.0) % MCHC (31.0-37.0) g/dL RDW (11.5-15.5) % Plt Count (150-450) k/uL Chloride (98-107) mmol/L BUN (7-17) mg/dL Glucose (74-99) mg/dL POC Glucose (mg/dL) 110 H 157 H 129 H (75-99) mg/dL Calcium (8.4-10.2) mg/dL 07/30/21 07/30/21 Range/Units 07:13 07:13 WBC 19.5 H (3.8-10.6) k/uL RBC 2.82 L (3.80-5.40) m/uL Hgb 8.0 L (11.4-16.0) gm/dL Hct 25.9 L (34.0-46.0) % MCHC 30.8 L (31.0-37.0) g/dL RDW 18.6 H (11.5-15.5) % Plt Count (150-450) k/uL Chloride 112 H (98-107) mmol/L BUN 72 H (7-17) mg/dL Glucose 131 H (74-99) mg/dL POC Glucose (mg/dL) (75-99) mg/dL Calcium 7.4 L (8.4-10.2) mg/dL Assessment and Plan Assessment: Acute hypoxemic respiratory failure secondary to left lower lobe pneumonia, status post intubation and mechanical ventilation as well as bronchoscopy on 07/11/2021, extubation on 07/23/2021, and reintubation on 07/26/2021. Septic shock, with multiorgan system failure. 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 S/P tracheostomy and PEG tube placement, 07/27/2021. CAD, status post bypass grafting. Acute hypoxemic respiratory failure secondary to pneumonia and COPD. History of COPD from previous significant tobacco use. History of hypertension. History of hyperlipidemia. Status post pacemaker implantation. Vague history of CHF. Plan: Plan dated 07/10/2021. Currently, the patient's on azithromycin and Zosyn. The patient is also getting any treatments with albuterol sulfate and ipratropium bromide. We will continue to follow make recommendations were appropriate. Prognosis is certainly guarded. The CAT scan, x-rays, and medications are all reviewed. The patient should have outpatient evaluation of her chronic lung disease once she is better and is discharged. Infectious disease should see this patient. Plan dated 07/11/2021. The patient was transferred to the intensive care unit for further monitoring and management. She was transferred sometime after midnight. She remains on BiPAP. Saturations are reasonable. Chest x-ray shows near complete opaci fication of the left lung. We recommend the right lung to be down, and significant chest physiotherapy to the left lung. Additional recommendations and suggestions are forthcoming. Labs, x-rays, and medications are reviewed. We'll continue to follow. Plan dated 07/12/2021. The patient was intubated and mechanically ventilated yesterday, 07/11/2021. In addition, an arterial line was placed, as well as a central line, and the patient underwent bronchoscopy. Currently everything is pending. The patient remains on the mechanical ventilator. She is on propofol at 15 mcg/kg/m, and norepinephrine at 61 mcg/m. I'm going to add vasopressin to her regimen. Will have nephrology see her for her worsening renal function and poor urine output. Cortisol level was adequate. She remains on Zosyn as per infectious diseases. I did have a very long conversation with her daughter. I explained to the daughter that we are giving her best supportive care. The patient remains a full code at this time. Plan dated 07/27/2021. The patient will undergo tracheostomy and PEG tube placement today. Was started on enteral nutrition. Blood gases show a respiratory alkalosis. No ventilator changes. We'll make sure the patient's on DuoNeb every 4 hours [id number]. Continue GI and DVT prophylaxis. Zosyn was started empirically. No additional recommendations are made. Prognosis is guarded. The patient remains on fluconazole. Labs, x-rays, and medications are all reviewed. Prognosis is guarded. We'll continue to follow the patient and make recommendations where appropriate. Plan dated 07/28/2021. The patient did have her PEG tube placement and tracheostomy performed yester day. She continues on Zosyn and Diflucan. The patient is getting tube feedings with vital 1.2 at 20 mL an hour, with a goal of 33 mL an hour. The TPN will be stopped later today. Later today, the patient can have a daily interruption of sedation and a spontaneous breathing trial. Labs, x-rays, and medications are all reviewed. We will continue to follow the patient and make recommendations w here appropriate. The patient's overall prognosis is very guarded. Plan dated 07/29/2021. Currently, the patient is on the volume assist control mode. Yesterday, she spent about 4 hours on pressure support. Today, we'll place her on pressure support again, and transition her to a trach collar. Labs, x-rays, and medications are all reviewed. The most recent computed tomography scan shows almost complete resolution of the previously seen hyperdense focus in the right parietal lobe. The patient remains on Zosyn. Additional recommendations suggestions are forthcoming. Solu-Medrol is discontinued. We will continue to follow the patient and make recommendations where appropriate. Prognosis is certainly guarded. Plan dated 07/30/2021. The patient will again be transitioned back to trach collar. Yesterday, the patient had some bleeding about the trach site. The bleeding areas were cauterized by the surgeon. The patient is currently on the ventilator. She remains on antibiotics. The hope is to get her discharged tomorrow [facility]. The patient's Coumadin will be restarted. A repeat computed tomography scan of the brain will be ordered. No additional recommendations are made. Her prognosis is certainly guarded. The abnormal bleeding areas the parietal lobe on the right side, has improved. We will continue to follow make recommendations where appropriate. Prognosis is certainly guarded. Time with Patient: Greater than 30
[2021-07-30 09:54] LABS: Platelet Count 90 k/uL (150-450)
[2021-07-30 11:31] LABS: Glucose,Whole Blood 113 mg/dL (75-99)
--- NOTE | 2021-07-30 11:47 | P.PN ---
Subjective Progress Note Date: 07/30/21 CHIEF COMPLAINT: Respiratory failure HISTORY OF PRESENT ILLNESS: Patient is in the ICU. She is status post tracheostomy and PEG tube placement on 07/27/21. Patient had bleeding from her tracheostomy site. She was taken back to the OR yesterday for evaluation and control tracheostomy site bleeding. Patient has had no further bleeding from the tracheostomy site. PEG tube site there is some mild amount of blood oozing from the PEG tube site. She is tolerating tube feeds. Tube feeds are at 47 mL per hour. Afebrile. On trach collar. WBC 19.5 hemoglobin is 8 platelets 90 INR 1.1 PHYSICAL EXAM: VITAL SIGNS: Reviewed. GENERAL: Well-developed in no acute distress. HEENT: Head is atraumatic, normocephalic. Tracheostomy site Very small amount of pinkish drainage noted on gauze. No active bleeding. ABDOMEN: Soft. Nondistended. PEG tube site small amount of blood oozing from PEG tube site ASSESSMENT: 1. Acute hypoxic respiratory failure secondary to lupus pneumonitis and possible community acquired pneumonia status post tracheostomy placement 2. Severe protein calorie malnutrition status post PEG tube placement 3. Sepsis 4. Thrombocytopenia PLAN: -Continue to titrate to feedings -Continue tracheostomy care -Continue to hold Coumadin -Continue supportive care -Continue ICU management Physician Larriman note has been reviewed by physician. Signing provider agrees with the documented findings, assessment, and plan of care. I have personally seen and examined the patient, reviewed the [employer] /PAs history, exam and MDM and agree with the assessment and plan as written. Based on total visit time, I have performed more than 50% of the visit. As above: No further bleeding seen. Packing was removed. Repack around the tracheostomy with Aquacel silver. Resume Coumadin tomorrow if no further bleeding. Objective - Vital Signs Vital signs: Vital Signs Temp 99.1 F 07/30/21 08:00 Pulse 85 07/30/21 11:26 Resp 28 H 07/30/21 11:00 BP 156/87 07/30/21 11:00 Pulse Ox 94 L 07/30/21 11:30 Intake & Output 07/29/21 07/30/21 07/30/21 18:59 06:59 18:59 Intake Total 924 941 465 Output Total 1560 905 635 Balance -636 36 -170 Weight 82.5 kg 79.6 kg Intake: IV 340 240 100 .9 kvo 240 240 100 Intake, IV Titration 100 Amount Piperacillin-Tazobactam 3 100 .375 gm In Sodium Chloride 0.9% 100 ml @ 25 mls/hr IVPB Q8HR [facility] Rx# :[id number] Tube Feeding 494 611 235 Other 90 90 30 Output: Urine 1555 905 635 Estimated Blood Loss 5 Other: Voiding Method Indwelling Catheter Indwelling Catheter Indwelling Catheter # Voids 90 ABP, PAP, CO, CI - Last Documented Arterial Blood Pressure 163/56 - Labs CBC & Chem 7: 07/30/21 07:13 07/30/21 07:13 Labs: Abnormal Lab Results - Last 24 Hours (Table) 07/29/21 07/29/21 07/30/21 Range/Units 17:48 18:16 00:20 WBC 19.5 H (3.8-10.6) k/uL RBC 2.75 L (3.80-5.40) m/uL Hgb 8.1 L (11.4-16.0) gm/dL Hct 25.2 L (34.0-46.0) % MCHC (31.0-37.0) g/dL RDW 18.0 H (11.5-15.5) % Plt Count 94 L (150-450) k/uL Chloride (98-107) mmol/L BUN (7-17) mg/dL Glucose (74-99) mg/dL POC Glucose (mg/dL) 110 H 157 H (75-99) mg/dL Calcium (8.4-10.2) mg/dL 07/30/21 07/30/21 07/30/21 Range/Units 06:19 07:13 07:13 WBC 19.5 H (3.8-10.6) k/uL RBC 2.82 L (3.80-5.40) m/uL Hgb 8.0 L (11.4-16.0) gm/dL Hct 25.9 L (34.0-46.0) % MCHC 30.8 L (31.0-37.0) g/dL RDW 18.6 H (11.5-15.5) % Plt Count 90 L (150-450) k/uL Chloride 112 H (98-107) mmol/L BUN 72 H (7-17) mg/dL Glucose 131 H (74-99) mg/dL POC Glucose (mg/dL) 129 H (75-99) mg/dL Calcium 7.4 L (8.4-10.2) mg/dL 07/30/21 Range/Units 11:29 WBC (3.8-10.6) k/uL RBC (3.80-5.40) m/uL Hgb (11.4-16.0) gm/dL Hct (34.0-46.0) % MCHC (31.0-37.0) g/dL RDW (11.5-15.5) % Plt Count (150-450) k/uL Chloride (98-107) mmol/L BUN (7-17) mg/dL Glucose (74-99) mg/dL POC Glucose (mg/dL) 113 H (75-99) mg/dL Calcium (8.4-10.2) mg/dL
--- NOTE | 2021-07-30 14:12 | P.PN ---
Subjective Patient is seen for follow-up for acute kidney injury. Status post trach and PEG. Patient had bleeding from tracheostomy tube which is now controlled. Maintained on IV Lasix Serum creatinine at 0.95 mg/dL which is down from 1.1 yesterday. Peak creatinine this admission was 4.57. Objective - Vital Signs Vital signs: Vital Signs Temp 99.1 F 07/30/21 08:00 Pulse 85 07/30/21 11:26 Resp 28 H 07/30/21 11:00 BP 156/87 07/30/21 11:00 Pulse Ox 94 L 07/30/21 11:30 Intake & Output 07/29/21 07/30/21 07/30/21 18:59 06:59 18:59 Intake Total 924 941 465 Output Total 1560 905 635 Balance -636 36 -170 Weight 82.5 kg 79.6 kg Intake: IV 340 240 100 .9 kvo 240 240 100 Intake, IV Titration 100 Amount Piperacillin-Tazobactam 3 100 .375 gm In Sodium Chloride 0.9% 100 ml @ 25 mls/hr IVPB Q8HR [facility] Rx# :[id number] Tube Feeding 494 611 235 Other 90 90 30 Output: Urine 1555 905 635 Estimated Blood Loss 5 Other: Voiding Method Indwelling Catheter Indwelling Catheter Indwelling Catheter # Voids 90 ABP, PAP, CO, CI - Last Documented Arterial Blood Pressure 163/56 - Exam Awake, comfortable, on the vent Examination of the heart S1 and S2 Examination lungs bilateral breath sounds are heard Abdomen is soft Examination of lower extremities shows edema 1+ bilaterally - Labs CBC & Chem 7: 07/30/21 07:13 07/30/21 07:13 Labs: Abnormal Lab Results - Last 24 Hours (Table) 07/29/21 07/29/21 07/30/21 Range/Units 17:48 18:16 00:20 WBC 19.5 H (3.8-10.6) k/uL RBC 2.75 L (3.80-5.40) m/uL Hgb 8.1 L (11.4-16.0) gm/dL Hct 25.2 L (34.0-46.0) % MCHC (31.0-37.0) g/dL RDW 18.0 H (11.5-15.5) % Plt Count 94 L (150-450) k/uL Chloride (98-107) mmol/L BUN (7-17) mg/dL Glucose (74-99) mg/dL POC Glucose (mg/dL) 110 H 157 H (75-99) mg/dL Calcium (8.4-10.2) mg/dL 07/30/21 07/30/21 07/30/21 Range/Units 06:19 07:13 07:13 WBC 19.5 H (3.8-10.6) k/uL RBC 2.82 L (3.80-5.40) m/uL Hgb 8.0 L (11.4-16.0) gm/dL Hct 25.9 L (34.0-46.0) % MCHC 30.8 L (31.0-37.0) g/dL RDW 18.6 H (11.5-15.5) % Plt Count 90 L (150-450) k/uL Chloride 112 H (98-107) mmol/L BUN 72 H (7-17) mg/dL Glucose 131 H (74-99) mg/dL POC Glucose (mg/dL) 129 H (75-99) mg/dL Calcium 7.4 L (8.4-10.2) mg/dL 07/30/21 Range/Units 11:29 WBC (3.8-10.6) k/uL RBC (3.80-5.40) m/uL Hgb (11.4-16.0) gm/dL Hct (34.0-46.0) % MCHC (31.0-37.0) g/dL RDW (11.5-15.5) % Plt Count (150-450) k/uL Chloride (98-107) mmol/L BUN (7-17) mg/dL Glucose (74-99) mg/dL POC Glucose (mg/dL) 113 H (75-99) mg/dL Calcium (8.4-10.2) mg/dL Assessment and Plan Assessment: 1. Acute kidney injury secondary to ATN from septic shock. Creatinine peaked at 4.57 now down to 0.9 mg/dL. Losartan has been resumed. ANAs positive with low complements. Gvni-lazzek-jummvtnk DNA antibody at 8 [place] and all other serologies are negative. Patient does have a history of lupus. She will need a kidney biopsy which can be done later on. Patient also had left ureteral stent placement this admission for obstructive uropathy 2. Disproportionately elevated B UN secondary to steroids currently improved 3. Septic shock from pneumonia status post bronchoscopy currently on the vent maintained on antibiotics 4. Acute hypoxic respiratory failure from pneumonia, currently on the vent. Status post trach and PEG 5. Shock liver currently improved 6. Left-sided hydronephrosis status post left ureteral stent placement on 07/16/2021 7. Hypernatremia associated with free water deficit status post D5W 8. History of mitral valve repair Plan: Continue with IV Lasix. Continue with Cozaar Decrease sodium bicarb Patient will need kidney biopsy down the road staging of lupus.
[2021-07-30] MEDS: ACETAMINOPHEN TAB 325 MG TAB PO PRN (17:10)
--- NOTE | 2021-07-30 18:17 | P.CONS ---
History of Present Illness - Reason for Consult Consult date: 07/30/21 anticoagulation recommendations Requesting physician: Sampson Person - History of Present Illness Patient is a 71-year-old female we have been asked to see regarding anticoagulation recommendations when tracheostomy stops bleeding. The hospital for 21 days and had a rather uneventful stay. She was a transfer from [place] for pneumonia. He was recently at [facility] for pacemaker pro cedure. He has had respiratory failure 2 requiring intubation. She has had a bronchoscopy with clearing of mucous plug. She now has a tracheostomy and a PEG tube. There is documentation of irregular heart rhythm. Patient was seen by Neurology with an acute small hemorrhagic stroke over the right parietal area and possible subarachnoid over the right frontal. Reviewed neurology notes. [place] it may have been related to a supratherapeutic INR-patient is on Coumadin for atrial fibrillation. Neurology has discussed the case with the patient's daughter. Risk of clot versus risk of bleeding appears to be understood. Dr. Ramirez spoke to the patient, she nodded her head and seemed to understand what he was talking about. Was not able to verbally answer any questions at this time. Review of Systems Patient nodded her head in response to questions and during discussion. Past Medical History Past Medical History: COPD History of Any Multi-Drug Resistant Organisms: None Reported Past Surgical History: Cardiac Valve Replacement, Heart Catheterization, Pacemaker Past Anesthesia/Blood Transfusion Reactions: No Reported Reaction Type of Cardiac Device: Permanent Pacemaker, AICD Device Placement Date:: may 2021 Past Psychological History: No Psychological Hx Reported Smoking Status: Former smoker - Past Family History Mother Family Medical History: Myocardial Infarction (CO) Father Family Medical History: Myocardial Infarction (CO) Medications and Allergies Home Medications Medication Instructions Recorded Confirmed Type ALPRAZolam [Xanax] 1 mg PO TID PRN 07/09/21 07/09/21 History Beets Supplement 500mg 500 mg PO DAILY 07/09/21 07/09/21 History Cholecalciferol [Vitamin D3 (25 25 mcg PO DAILY 07/09/21 07/09/21 History Mcg = 1000 Iu)] Collagen + Biotin 1 cap PO DAILY 07/09/21 07/09/21 History Cyanocobalamin [Vitamin B-12] 500 mcg PO DAILY 07/09/21 07/09/21 History Ferrous Gluconate 324 mg PO DAILY 07/09/21 07/09/21 History Furosemide [Lasix] 40 mg PO DAILY 07/09/21 07/09/21 History HYDROcodone/APAP 10-325MG [[place] 1 tab PO QID PRN 07/09/21 07/09/21 History 10-325] Hydroxychloroquine Sulfate 200 mg PO DAILY 07/09/21 07/09/21 History [Plaquenil] Losartan [Cozaar] 50 mg PO DAILY 07/09/21 07/09/21 History Simvastatin [Zocor] 20 mg PO DAILY 07/09/21 07/09/21 History Spironolactone [Aldactone] 25 mg PO DAILY 07/09/21 07/09/21 History Torsemide [Demadex] 20 mg PO DAILY 07/09/21 07/09/21 History Warfarin [Coumadin] 2 mg PO DAILY 07/09/21 07/09/21 History Zolpidem [Ambien] 10 mg PO HS 07/09/21 07/09/21 History guaiFENesin-Coden 100-10MG/5ML 5 ml PO TID PRN 07/09/21 07/09/21 History [Robitussin AC] minoxidiL 1.25 mg PO DAILY 07/09/21 07/09/21 History Allergies Allergy/AdvReac Type Severity Reaction Status Date / Time SURGICAL TAPE Allergy BLISTERS Uncoded 07/09/21 16:05 Physical Exam Vitals: Vital Signs Temp Pulse Pulse Resp BP BP Pulse Ox 07/30/21 11:30 94 L 07/30/21 11:26 85 07/30/21 11:14 84 07/30/21 11:00 82 28 H 156/87 94 L 07/30/21 10:00 78 34 H 141/81 93 L 07/30/21 09:00 82 24 135/67 93 L 07/30/21 08:00 99.1 F 84 24 129/68 94 L 07/30/21 07:48 82 07/30/21 07:35 83 07/30/21 07:00 83 24 116/39 94 L 07/30/21 06:00 82 24 103/56 93 L 07/30/21 05:00 78 24 99/53 95 07/30/21 04:00 98.0 F 77 24 102/53 94 L 07/30/21 03:00 82 24 106/53 94 L 07/30/21 02:00 78 24 97/41 94 L 07/30/21 01:00 77 24 105/47 94 L 07/30/21 00:00 98.3 F 83 24 115/54 93 L 07/29/21 23:58 80 07/29/21 23:47 78 07/29/21 23:00 78 24 113/54 94 L 07/29/21 22:00 78 24 114/52 95 07/29/21 21:00 78 24 125/69 94 L 07/29/21 20:30 98.1 F 82 24 125/69 95 07/29/21 20:25 82 07/29/21 20:13 80 07/29/21 20:00 82 24 96 07/29/21 19:30 82 24 124/64 96 07/29/21 19:00 81 24 96 07/29/21 18:30 82 24 121/62 96 07/29/21 18:13 82 24 122/63 96 07/29/21 18:00 82 24 117/64 96 07/29/21 17:30 81 24 95 07/29/21 17:00 81 24 88/37 93 L 07/29/21 16:30 81 24 117/63 95 07/29/21 16:15 80 07/29/21 16:00 82 82 24 144/80 98 07/29/21 15:56 82 07/29/21 15:00 76 22 144/80 99 07/29/21 14:00 77 17 132/70 99 07/29/21 13:00 82 25 H 131/67 97 Intake and Output 07/29/21 07/30/21 07/30/21 22:59 06:59 14:59 Intake Total 743 596 465 Output Total 665 575 635 Balance 78 21 -170 Intake: IV 260 160 100 .9 kvo 160 160 100 Intake, IV Titration 100 Amount Piperacillin-Tazobactam 3 100 .375 gm In Sodium Chloride 0.9% 100 ml @ 25 mls/hr IVPB Q8HR [facility] Rx# :[id number] Tube Feeding 423 376 235 Other 60 60 30 Output: Urine 660 575 635 Estimated Blood Loss 5 Other: Voiding Method Indwelling Catheter Indwelling Catheter Indwelling Catheter Weight 79.6 kg - Constitutional General appearance: average body habitus, cooperative, no acute distress - EENT Patient's nose has gauze and it. Patient has blood around the corners of her mouth. Eyes: anicteric sclerae, EOMI ENT: hearing grossly normal - Neck Neck: no lymphadenopathy - Respiratory Respiratory: bilateral: diminished - Cardiovascular Rhythm: regular Heart sounds: normal: S1, S2 Abnormal Heart Sounds: no systolic murmur, no diastolic murmur, no rub, no S3 Gallop, no S4 Gallop, no click, no other leg Peripheral Edema: bilateral: 1+ - Gastrointestinal General gastrointestinal: no absent bowel sounds, no decreased bowel sounds, no distended, no hepatomegaly, no hyperactive bowel sounds, normal bowel sounds, no organomegaly, no rigid, no scaphoid, soft, no splenomegaly, no tenderness, no umbilical hernia, no ventral hernia - Musculoskeletal Musculoskeletal: generalized weakness - Psychiatric Patient is alert Results CBC & Chem 7: 07/30/21 07:13 07/30/21 07:13 Labs: Abnormal Lab Results - Last 24 Hours (Table) 07/29/21 07/29/21 07/30/21 Range/Units 17:48 18:16 00:20 WBC 19.5 H (3.8-10.6) k/uL RBC 2.75 L (3.80-5.40) m/uL Hgb 8.1 L (11.4-16.0) gm/dL Hct 25.2 L (34.0-46.0) % MCHC (31.0-37.0) g/dL RDW 18.0 H (11.5-15.5) % Plt Count 94 L (150-450) k/uL Chloride (98-107) mmol/L BUN (7-17) mg/dL Glucose (74-99) mg/dL POC Glucose (mg/dL) 110 H 157 H (75-99) mg/dL Calcium (8.4-10.2) mg/dL 07/30/21 07/30/21 07/30/21 Range/Units 06:19 07:13 07:13 WBC 19.5 H (3.8-10.6) k/uL RBC 2.82 L (3.80-5.40) m/uL Hgb 8.0 L (11.4-16.0) gm/dL Hct 25.9 L (34.0-46.0) % MCHC 30.8 L (31.0-37.0) g/dL RDW 18.6 H (11.5-15.5) % Plt Count 90 L (150-450) k/uL Chloride 112 H (98-107) mmol/L BUN 72 H (7-17) mg/dL Glucose 131 H (74-99) mg/dL POC Glucose (mg/dL) 129 H (75-99) mg/dL Calcium 7.4 L (8.4-10.2) mg/dL 07/30/21 Range/Units 11:29 WBC (3.8-10.6) k/uL RBC (3.80-5.40) m/uL Hgb (11.4-16.0) gm/dL Hct (34.0-46.0) % MCHC (31.0-37.0) g/dL RDW (11.5-15.5) % Plt Count (150-450) k/uL Chloride (98-107) mmol/L BUN (7-17) mg/dL Glucose (74-99) mg/dL POC Glucose (mg/dL) 113 H (75-99) mg/dL Calcium (8.4-10.2) mg/dL Chest x-ray: report reviewed Assessment and Plan (1) Coagulopathy Current Visit: Yes Status: Acute Priority: Medium Code(s): D68.9 - COAGULATION DEFECT, UNSPECIFIED SNOMED Code(s): 55067001 Plan: On laboratory/chart review it appears as though patient may have experienced hemorrhagic stroke while INR was supratherapeutic. From a Hematology st [facility], after an acute brain bleed there is no recommendation for anticoagulation for at least 6 weeks to 3 months. As long as there is active bleeding anticoagulation cannot be recommended. If it is felt that the underlying cause of hemorrhagic stroke was supratherapeutic INR then, with correction of the underlying cause, resuming anticoagulation could be considered with very close monitoring of INR, only once any active bleeding is felt to be controlled. Will defer decision to resume anticoagulation to Neurologist who has seen and evaluated the brain images as well as MD ordering coumadin for the pt. Doctor attests: I performed a history and physical examination of this patient, developed impression and plan of care. Discussed with dictator. I agree with dictators note, documented as a scribe.
--- NOTE | 2021-07-30 18:35 | P.PN ---
Progress Note - Text Progress Note Date: 07/30/21 I was notified by the patient's nurse that patient had some bleeding noted around the tracheostomy site. Therefore surgery team recommend to hold off on start anticoagulation and agree with that. Once bleeding is stable and patient is clear to start anticoagulation, to inform neurology team.
[2021-07-30] MEDS: FLUCONAZOLE IN NACL,ISO-OSM 200 MG in SALINE 1 100ML.BAG IVPB SCH (18:49)
[2021-07-30 18:52] LABS: Glucose,Whole Blood 94 mg/dL (75-99)
--- NOTE | 2021-07-30 20:41 | PN ---
PROGRESS NOTE 71-year-old white female remains in ICU. Lupus encephalitis, lupus nephritis and aspiration pneumonia, Heidi pneumonia, acute hypoxemic respiratory failure, status post trach and PEG. Vital signs reviewed. Claim Representative notes reviewed. Resting comfortably on vent. GI soft. Cardiovascular: S1-S2. Lungs diminished. Extremities: Generalized weakness. BUN 72, creatinine is 0.95, hemoglobin is 8, white count is 19.5, sugar 113. ASSESSMENT: Coagulopathy, possibly a small minimal hemorrhagic stroke that is resolved and we held anticoagulants due to Dr. Ambriz with bleeding around the trach. I consulted Hematology who saw the patient today who says no anticoagulation for 6 weeks to 3 months and we will monitor her over that time. [facility]. White count is 19.5, hemoglobin is 8.1, creatinine is down to 0.95. Plan as mentioned above. [facility]. Possibly [facility]. Renal function is almost normal. Was cleared by multiple surgeons who sent her to [facility]. MMODL / IJN: [id number] /
--- NOTE | 2021-07-30 22:10 | P.PN ---
Subjective Progress Note Date: 07/30/21 Principal diagnosis: Pneumonia Patient is a 71-year-old female with a past medical history significant for COPD and recent admission to [facility] for pneumonia pr esented to hospital with increasing shortness of breath and cough with a CT suspicious for left lower lobe pneumonia. The patient is status post cystoscopy and left ureteral stent placement completed on 07/16/2021, the patient went into respiratory distress evening of 07/25/2021 and got reintubated, the patient is status post bronchoscopy completed on 07/26/2021, patient is scheduled for a trach and PEG 07/27/2021 On today's evaluation that is 07/30/2021, the patient remains to be afebrile , the patient is hemodynamically stable not requiring any pressor support the patient FiO2 is currently on 35 %, no further bleeding around the ET, patient is tolerating her tube feeds and no diarrhea reported by nursing staff Objective - Vital Signs Vital signs: Vital Signs Temp 99.1 F 07/30/21 08:00 Pulse 85 07/30/21 11:26 Resp 28 H 07/30/21 11:00 BP 156/87 07/30/21 11:00 Pulse Ox 94 L 07/30/21 11:30 Intake & Output 07/29/21 07/30/21 07/30/21 18:59 06:59 18:59 Intake Total 924 941 465 Output Total 1560 905 635 Balance -636 36 -170 Weight 82.5 kg 79.6 kg Intake: IV 340 240 100 .9 kvo 240 240 100 Intake, IV Titration 100 Amount Piperacillin-Tazobactam 3 100 .375 gm In Sodium Chloride 0.9% 100 ml @ 25 mls/hr IVPB Q8HR [facility] Rx# :[id number] Tube Feeding 494 611 235 Other 90 90 30 Output: Urine 1555 905 635 Estimated Blood Loss 5 Other: Voiding Method Indwelling Catheter Indwelling Catheter Indwelling Catheter # Voids 90 ABP, PAP, CO, CI - Last Documented Arterial Blood Pressure 163/56 - Exam GENERAL DESCRIPTION: An elderly female intubated on the vent RESPIRATORY SYSTEM: Unlabored breathing , decreased breath sounds at bases HEART: S1 S2 regular rate and rhythm , ABDOMEN: Soft , no tenderness EXTREMITIES: No edema feet - Labs CBC & Chem 7: 07/30/21 07:13 07/30/21 07:13 Labs: Abnormal Lab Results - Last 24 Hours (Table) 07/29/21 07/29/21 07/30/21 Range/Units 17:48 18:16 00:20 WBC 19.5 H (3.8-10.6) k/uL RBC 2.75 L (3.80-5.40) m/uL Hgb 8.1 L (11.4-16.0) gm/dL Hct 25.2 L (34.0-46.0) % MCHC (31.0-37.0) g/dL RDW 18.0 H (11.5-15.5) % Plt Count 94 L (150-450) k/uL Chloride (98-107) mmol/L BUN (7-17) mg/dL Glucose (74-99) mg/dL POC Glucose (mg/dL) 110 H 157 H (75-99) mg/dL Calcium (8.4-10.2) mg/dL 07/30/21 07/30/21 07/30/21 Range/Units 06:19 07:13 07:13 WBC 19.5 H (3.8-10.6) k/uL RBC 2.82 L (3.80-5.40) m/uL Hgb 8.0 L (11.4-16.0) gm/dL Hct 25.9 L (34.0-46.0) % MCHC 30.8 L (31.0-37.0) g/dL RDW 18.6 H (11.5-15.5) % Plt Count 90 L (150-450) k/uL Chloride 112 H (98-107) mmol/L BUN 72 H (7-17) mg/dL Glucose 131 H (74-99) mg/dL POC Glucose (mg/dL) 129 H (75-99) mg/dL Calcium 7.4 L (8.4-10.2) mg/dL 07/30/21 Range/Units 11:29 WBC (3.8-10.6) k/uL RBC (3.80-5.40) m/uL Hgb (11.4-16.0) gm/dL Hct (34.0-46.0) % MCHC (31.0-37.0) g/dL RDW (11.5-15.5) % Plt Count (150-450) k/uL Chloride (98-107) mmol/L BUN (7-17) mg/dL Glucose (74-99) mg/dL POC Glucose (mg/dL) 113 H (75-99) mg/dL Calcium (8.4-10.2) mg/dL Assessment and Plan (1) Pneumonia Current Visit: Yes Status: Acute Code(s): J18.9 - PNEUMONIA, UNSPECIFIED ORGANISM SNOMED Code(s): 938279632 Plan: 1patient presented to hospital with acute respiratory failure with in this patient did have hypoxemia increasing shortness of breath and cough with evidence of left lower lobe pneumonia on the CT and recently admitted and treated at [facility] and concerning for a gram-negative pneumonia sputum and bronchial culture were negative , patient did have initial improvement however subsequently did have worsening of respiratory status requiring intubation possible mucus plugging status post bronchoscopy and repeat culture are so far negative, patient is status post trach and PEG, patient continue with Zosyn and monitor clinical course closely Time with Patient: Less than 30
[2021-07-31] MEDS ORDERED: IPRATROPIUM-ALBUTEROL 3 ML NEB ONE
[2021-07-31] MEDS ORDERED: METOCLOPRAMIDE 5 MG/ML 2 ML VIAL ONE
[2021-07-31 05:27] LABS: Glucose,Whole Blood 98 mg/dL (75-99)
[2021-07-31 05:31] LABS: Glucose,Whole Blood 112 mg/dL (75-99)
[2021-07-31] MEDS: IPRATROPIUM-ALBUTEROL 3 ML NEB INHALATION SCH ×6 (05:47→23:16)
[2021-07-31] MEDS: METOCLOPRAMIDE 5 MG/ML 2 ML VIAL IVP SCH ×5 (06:46→23:17)
[2021-07-31] MEDS: INSULIN ASPART (NovoLOG) 100 UNIT/ML VIAL SQ SCH ×5 (06:46→23:15)
[2021-07-31] MEDS: PIPERACILLIN-TAZOBACTAM 3.375 GM in SODIUM CHLORIDE 0.9% 100 ML IVPB SCH ×4 (06:47→23:17)
--- NOTE | 2021-07-31 07:47 | XR ---
EXAMINATION TYPE: XR chest 1V portable DATE OF EXAM: 07/31/2021 COMPARISON: 07/30/2021 HISTORY: Tube placement TECHNIQUE: Single frontal view of the chest is obtained. FINDINGS: Tracheostomy tube stable. Postsurgical changes with cardiac device and PICC line stable. C hronic rib cage deformities noted. Underlying COPD noted is chronic interstitial lung disease. There is increasing consolidation pleural effusion on the left. Small right pleural effusion with basilar c onsolidation noted. Underlying venous congestion not excluded. IMPRESSION: 1. Persistent pleural-parenchymal changes which are present on the left with near complete opacificat ion of the left hemithorax. Correlate for increasing pleural fluid or consolidation.
[2021-07-31 08:20] LABS: Glucose,Whole Blood 143 mg/dL (75-99)
[2021-07-31] MEDS: INSULIN DETEMIR (LEVEMIR) 100 UNIT/ML SYR SQ SCH (08:21)
[2021-07-31] MEDS ORDERED: PROPOFOL 10 MG/ML 20 ML VIAL IV ONE (08:37)
[2021-07-31 08:59] LABS: African American GFR (CKD) >90 (>60 ml/min/1.73 sqM); Anion Gap 4 mmol/L; Blood Urea Nitrogen 64 mg/dL (7-17); Calcium 7.3 mg/dL (8.4-10.2); Carbon Dioxide 26 mmol/L (22-30); Chloride 116 mmol/L (98-107); Glucose 132 mg/dL (74-99); Non-African American GFR(CKD) 79 (>60 ml/min/1.73 sqM); Potassium 4.2 mmol/L (3.5-5.1); Sodium 146 mmol/L (137-145)
[2021-07-31 09:08] LABS: INR 1.1 (<1.2); Prothrombin Time 11.4 sec (9.0-12.0)
[2021-07-31 09:25] LABS: Anisocytosis Slight; HCT 25.6 % (34.0-46.0); HGB 8.1 gm/dL (11.4-16.0); Hypochromasia Moderate; MCH 29.6 pg (25.0-35.0); MCHC 31.5 g/dL (31.0-37.0); MCV 93.8 fL (80.0-100.0); Macrocytosis Slight; Mean Platelet Volume 12.6; RBC 2.73 m/uL (3.80-5.40); RDW 18.5 % (11.5-15.5); WBC 12.6 k/uL (3.8-10.6)
[2021-07-31 09:26] LABS: Platelet Count 74 k/uL (150-450)
--- NOTE | 2021-07-31 09:34 | PCN ---
PROCEDURE NOTE PROCEDURE: Bronchoscopy, airway examination, therapeutic lavage, BAL. PREOPERATIVE DIAGNOSIS: Left lung collapse, mucus plugging. POSTOPERATIVE DIAGNOSIS: Left lung collapse, mucus plugging. OPERATORS: 1. Dr. Mcguire. 2. Dr. Kang. PROCEDURE DESCRIPTION: The patient's procedure was done at the bedside, room 253. The patient was receiving 100% oxygen, and also received 50 mcg of propofol and was on pressor support of 5 and CPAP of 5 during the procedure. The patient was stable throughout the procedure. The bronchoscope was inserted through the bronchoscope adapter connected to the tracheostomy tube. The bronchoscope was taken down through the tracheostomy tube into the trachea. The trachea itself appeared normal. At one point it appeared that there may be a lesion in the distal trachea sort of on the lateral wall of the distal right trachea, but subsequently that area was suctioned and it may have been just a mucus plug or some blood. The right side looked pretty normal; the right upper lobe and its 3 segments, right middle lobe and its 2 segments, right lower lobe and its 5 segments. On the left side there was some mucus plugging, particularly in the left upper lobe and to a lesser extent in the left lower lobe. With the help of saline lavage, these mucus plugs were removed. There was no dominant mass or tumor. There was no bleeding. The patient tolerated the procedure well. After all of the secretions and mucus were suctioned, the bronchoscope was removed. The patient tolerated the procedure well. A follow-up chest x-ray will be done in about an hour. MMODL / IJN: [id number] /
--- NOTE | 2021-07-31 09:36 | P.PN ---
Subjective Progress Note Date: 07/31/21 Principal diagnosis: Shortness of breath. Pulmonary consult dated 07/10/2021. 69-year-old female, poor historian, who apparently was sent to the emergency department, from [facility] for pneumonia. The patient was recently also at [facility], for a pacemaker procedure. The patient complains of increasing shortness of breath, cough, congestion, and low saturations. She typically uses oxygen at 2 L/m, as needed. She is a heavy smoker in the past. She was admitted with a left lower lobe. She's currently on 6 L nasal cannula. She is not receiving any IV fluids. White count 3.6, hemoglobin 9.9, hematocrit 31.4, and platelet count 199,000. Sodium 141, potassium 4.3, chlorides 108, CO2 20, anion gap 13, BUN 35, and creatinine 1.93. Troponins were 0.[address] showed significant consolidation in the left lung base. Other findings in the other lung contreras were noted. Progress note dated 07/11/2021. 71-year-old female seen yesterday in consultation. She apparently was sent into the emergency department from [facility] for pneumonia. The patient came in complaining of shortness of breath, cough, chest congestion, and low saturations. Last night, right around midnight or so, her respiratory status worsened, and she was transferred to the intensive care unit, and placed on BiPAP. Currently, her BiPAP settings are 12/5 and 70%. She's not receiving any IV fluids. The patient is on Zosyn and azithromycin. Chest x-ray shows significant opacification of the left lung. I recommend significant chest physiotherapy. White count 12.5, hemoglobin 10.1, hematocrit 32.1, and platelet count 248,000. PT was 16 with an INR 1.6. Blood gases show pO2 of 61, pCO2 43, and pH is 7.27. This was apparently on 35% oxygen. Sodium 141, potassium 4, chlorides 112, CO2 21, BUN 42, and creatinine 1.60. Troponin 0.354. Chest x- ray shows extensive consolidation and volume loss in the left hemithorax. Progress note dated 07/12/2021. 71-year-old female again seen in room 254. The patient was admitted with a diagnosis of left-sided pneumonia. The patient developed acute respiratory failure, required transfer to the intensive care unit, and yesterday, was intubated and mechanically ventilated. The patient also had an arterial line placed, a central line placed, and did undergo bronchoscopy. She remains on mechanical ventilator, on volume assist control, rate 24, tidal volume 400, FiO2 60%, and PEEP of 10. Blood gases show a PaO2 of 223, pCO2 of 34, and a pH is 7.16. His blood gases were done on 80%. At that point, I started the patient on a sodium bicarbonate drip, with 2 ampules of sodium bicarbonate and D5W at 100 mL an hour. The patient remains on propofol at 15 mcg/kg/m and norepinephrine at 61 mcg/m. In addition, the patient is getting vital AF at 10 mL an hour. We have asked nephrology to see her. I've also asked for a cortisol level, and for her to be started on vasopressin. She is currently on Zosyn. White count 21.8, hemoglobin 10.4, hematocrit 32.6, platelet count 340,000. PTT is 28.8 with an INR of 2.9. Sodium 143, potassium 4.3, chlorides 117, CO2 13, anion gap 13, BUN 46, and creatinine 2.68. AST is 4763. ALT is 1213. Cortisol level was 55. Chest x-ray shows left greater than right airspace disease, although the findings in the left chest, are improved post intubation. Reevaluated today on 07/24/2021, patient was extubated yesterday, and so far she seems to be tolerating the extubation rather well. She is however on airvo with FiO2 of 70% and flow of 50 L/m., Patient has O2 saturation in the high 90s hence we'll titrate the FiO2 down to 60% or possibly 50% and obtaining an O2 saturation of 93% or better. Patient is hemodynamically stable, not requiring any pressors. She does have a paced rhythm, she is awake, alert, oriented, foll ows simple instructions, however she has a very weak cough. Recommended incentive spirometry at bedside, patient is scheduled to have a PICC line placed today, continues to have a left IJ central line in place today. And has been present since the of last month. Her sodium is elevated, hence the patient is on D5W at 100 mL per hour. Speech therapy to evaluate the patient today and assess his swallow evaluation, if the patient fails may consider Lasix again nasogastric tube for enteral feeding. WBC count today is 24.5 hemoglobin is 10.2. Her sodium is 149. BUN is improving creatinine is significantly improved down to 1.81 today and the patient is having good urine output. Liver enzymes have significantly improved over the last 1 week. Patient remains on Solu- Medrol, and I cut down the dose to 60 mg IV push every 8 hours. She is now off antibiotics as she received full course of treatment for presumptive pneumonia. Reevaluated today on 07/25/2021, patient remains extubated, patient was extubated 2 days ago, so far she seems to be tolerating the extubation well, however the patient remains marginal, she has a very poor cough, and she may be developing worsening left lower lobe atelectasis and consolidation based on the chest x-ray today. Patient is unable to clear secretions with her weak cough. Her chest x- ray continues to show bilateral pneumonia left more so than right, her renal functioning however is improving, and her creatinine is much better today compared to the last few days. Patient is able to follow instructions, remains profoundly weak. Her urine output seems to be excellent, in the last 24 hours, patient had 2420 in and 04/21/2004 out. Hence no plan to give the patient any Lasix at this time. She is in atrial flutter. Patient is hemodynamically stable, not requiring any pressors. She remains on airvo at 55% FiO2 and 50 L flow. O2 saturation is in the mid 90s. Multiple attempts have been made to place an orogastric tube in this patient or a nasogastric tube, and I could not place one even with a glidescope use, and direct visualization of the vocal cords, and for some reason the nasogastric tube goes into the vocal cords every time we have attempted. Could not get it into the area posterior to the vocal cords. At any rate may have to consider a PEG tube placement in this patient comes next week. Sodium remains elevated at 149, patient continues to receive D5W. Reevaluated today on 07/26/2021, patient took a downhill course early this morning around 4 AM, patient developed complete opacification of the left lung and she desaturated down. Picture of the chest x-ray was sent to me early this morning, and I recommended immediate intubation, mechanical ventilation, and I saw this patient this morning continues to have complete opacification of the left lung with ipsilateral deviation of the trachea consistent with mucous plugging of the left mainstem bronchus. Hence we'll write came in this morning, I evaluated the patient, and the first thing I did was to bronchoscope the patient cleared all the mucous plugs from the left mainstem bronchus, and I performed lavage of the left lung until completely cleared. Restarted the patient back on antibiotics to Zosyn, cultures from the BAL are pending. Patient is now again back on mechanical ventilation, and early this morning she was on assist control rate of 24th of volume 400 FiO2 100% and PEEP of 5. ABG shortly after she was intubated showed a pO2 of 77 pCO2 41 pH of 7.39. Patient is on propofol at 30 mcg/kg/m, she is on TPN at 50 mL per hour, but now that we have an orogastric tube in place, patient would have enteral feeding. Her urine output seems to be excellent. Her IV fluid is at D5W at 100 mL per hour. I recommended increasing back her Solu-Medrol, and she is active on Zosyn. I did consult Dr. paniagua as per family's request for tracheostomy evaluation, and he is apparently scheduling the patient for tracheostomy and PEG tube placement tomorrow. WBC count today is 26.5 hemoglobin is 10.5. Basic metabolic profile is normal creatinine is up a bit today up to 1.39. Patient did receive Lasix yesterday. And she had excellent urine output after the Lasix. Presently diuretics are on hold Progress note dated 07/27/2021. 71-year-old female admitted on July 09 for respiratory failure. She came to the intensive care unit on July 11, and was intubated on the same day. She was extubated on July 23, and unfortunately, was reintubated on July 26. He is currently on volume assist control, rate 24, tidal volume 400, FiO2 35%, PEEP of 5. Blood gases show pO2 of 101, pCO2 33, and a pH is 7.48. These blood gases are consistent with normoxemia and a respiratory alkalosis. The patient's getting D5W at 100 mL an hour, propofol at 20 mcg/kg/m, and TPN at 30 mL an hour. The patient will have a tracheostomy and PEG tube placement today. White count 22.6, hemoglobin 8.5, hematocrit 27.3, and platelet count 130,000. Sodium 140, potassium 2.9, chlorides 110, CO2 26, BUN 80, and creatinine 1.19. Albumin is 2.0. Chest x-rays consistent with bilateral airspace disease pleural effusion, left greater than right, and most consistent with fluid overload. Other than Heidi in the bronchial washings, microbiology has been negative. Progress note dated 07/28/2021. 72-year-old female, admitted on July 09 for respiratory failure. She came to the intensive care unit on July 11, and was intubated on the same day. She was extubated on July 23, and was reintubated on July 26. The patient had a tracheostomy and PEG tube placement on July 27. Ventilator settings include volume assist control, rate 24, tidal volume 400, FiO2 35%, and PEEP of 5, to be dropped down to 30%, and PEEP of 5. Blood gases show a PaO2 of 1:15, pCO2 of 31, and a pH is 7.49. Blood gases consistent with respiratory alkalosis. The patient remains on Zosyn and Diflucan. The patient's getting tube feedings with vital 1.2 at 20 mL an hour, with a goal of 33 mL an hour. The patient will have a spontaneous breathing trial today. The patient's getting dextrose at 50 mL an hour, TPN at 30 mL an hour, propofol at 10 mics per kilogram per minute. White count 20.7, hemoglobin 8.6, hematocrit 26.8, platelet count 129,000. Sodium 138, potassium 4.1, chlorides 109, CO2 23, BUN 68, and creatinine 0.96. AST of 66 with an ALT of 104. Albumin is 2. Chest x-ray is essentially unchanged and shows a bilateral interstitial pattern. Progress note dated 07/29/2021. 71-year-old female admitted on July 09 for respiratory failure. She came to the intensive care unit on July 11, and was intubated on the same day. She was extubated on the , and was reintubated on the . She had a tracheostomy and PEG tube placement on 07/27/2021. She remains on the mechanical ventilator. Currently, she is on volume assist control, rate 24, tidal volume 400, FiO2 30%, PEEP of 5. The gases show pO2 104, pCO2 32, and a pH is 7.47. She's getting saline at 20 mL an hour. TPN is been weaned off. She getting vital 1.2 at 33 mL an hour, which is goal. The patient will be placed on pressure support of 5 and CPAP of 5, and it hopefully transitioned to trach collar. White count 20.4, hemoglobin 8.8, hematocrit 28.3, and platelet count is currently pending. Sodium 140, potassium 3.8, chlorides 109, CO2 24, BUN 72, creatinine 1.11. Chest x-ray shows some retrocardiac density and/or infiltrate. Progress note dated 07/30/2021. 71-year-old female admitted back on July 09 for respiratory failure. She came to the intensive care unit on July 11, and was intubated on the same day, extubated on the , and reintubated on the . She underwent tracheostomy and PEG tube placement on 07/27/2021. Yesterday, the patient has some bleeding around the trach site. The surgeon ended up cauterizing the bleeding areas. Currently, she back on volume assist control. Yesterday, before the surgical procedure, she was on trach collar. She's on volume assist control, rate 24, tidal volume 400, FiO2 30%, and PEEP of 5. No blood gases today. The patient remains on Zosyn and Diflucan. The patient's getting saline at 20 mL an hour. In addition, the patient's getting vital AF at 47 mL an hour, which is goal. We will attempt again today to transition the patient from volume assist control, pressure support ventilation, to trach collar. The goal is for the [facility], [facility]. The patient will be started back on her Coumadin. The patient will have a repeat computed tomography scan. Laboratory data includes a white count of 19.5, hemoglobin 8, hematocrit 25.9, and a platelet count which is currently pending. Sodium and potassium normal. Chlorides 112, CO2 24, BUN 72, and creatinine 0 .95., Chest x-rays are unchanged. Progress note dated 07/31/2021. 71-year-old female admitted back on July 09 for respiratory failure. She came to the intensive care unit, 2 days later on July 11, and was intubated on the same day. She was extubated on July 23, and reintubated on 08/05/2021. On 07/27/2021, she underwent tracheostomy and PEG tube placement. She did have some bleeding about the trach site. The site was cauterized, and the sutures that were too tight, moved. Currently, she is on trach collar 35%. Chest x-ray showed a collapse of the left lung. Bronchoscopy was done at the bedside this morning. Repeat chest x-rays pending. During the procedure, she was placed on pressure support and CPAP. She also received 50 g of propofol. Currently, she is on saline at 20 mL an hour, and vital AF at 47 mL an hour, which is goal. White count 12.6, hemoglobin 8.1, hematocrit 25.6, and platelet count 74,000. Sodium 146, potassium 4.2, chlorides 116, CO2 26, anion gap 4, BUN 64, and creatinine 0.76. Objective - Vital Signs Vital signs: Vital Signs Temp 98.1 F 07/31/21 08:00 Pulse 82 07/31/21 09:00 Resp 33 H 07/31/21 09:00 BP 120/67 07/31/21 09:00 Pulse Ox 100 07/31/21 09:00 Intake & Output 07/30/21 07/31/21 07/31/21 18:59 06:59 18:59 Intake Total 994 636 181 Output Total 1235 1155 150 Balance -241 -519 31 Weight 80.5 kg 80.5 kg Intake: IV 240 260 40 .9 kvo 240 260 40 Intake, IV Titration 100 Amount Piperacillin-Tazobactam 3 100 .375 gm In Sodium Chloride 0.9% 100 ml @ 25 mls/hr IVPB Q8HR [facility] Rx# :[id number] Tube Feeding 564 376 141 Other 90 Output: Urine 1235 1155 150 Other: Voiding Method Indwelling Catheter Indwelling Catheter ABP, PAP, CO, CI - Last Documented Arterial Blood Pressure 163/56 - Exam Currently on tracheostomy collar at 35%. Midline tracheostomy tube noted. HEENT examination is grossly unremarkable. Neck supple. Full range of motion. No adenopathy thyromegaly or neck vein distention. Cardiovascular examination reveals regular rhythm rate. S1-S2 normal. No S3 or S4. No discernible murmur noted. Heart sounds are very distant. Heart rate 82 bpm. Lungs reveal coarse bilateral rhonchi. Basilar crackles are appreciated. No wheezes. Breath sounds are equal bilaterally. Saturations are 98%. Abdomen soft bowel sounds are not heard. No masses or tenderness. PEG tube noted. Extremities are intact. No cyanosis clubbing or edema. Skin is without rash or lesion. Neurologic examination is stable. - Labs CBC & Chem 7: 07/31/21 08:10 07/31/21 08:10 Labs: Abnormal Lab Results - Last 24 Hours (Table) 07/30/21 07/30/21 07/31/21 Range/Units 07:13 11:29 05:29 WBC (3.8-10.6) k/uL RBC (3.80-5.40) m/uL Hgb (11.4-16.0) gm/dL Hct (34.0-46.0) % RDW (11.5-15.5) % Plt Count 90 L (150-450) k/uL Sodium (137-145) mmol/L Chloride (98-107) mmol/L BUN (7-17) mg/dL Glucose (74-99) mg/dL POC Glucose (mg/dL) 113 H 112 H (75-99) mg/dL Calcium (8.4-10.2) mg/dL 07/31/21 07/31/21 07/31/21 Range/Units 08:10 08:10 08:19 WBC 12.6 H (3.8-10.6) k/uL RBC 2.73 L (3.80-5.40) m/uL Hgb 8.1 L (11.4-16.0) gm/dL Hct 25.6 L (34.0-46.0) % RDW 18.5 H (11.5-15.5) % Plt Count 74 L (150-450) k/uL Sodium 146 H (137-145) mmol/L Chloride 116 H (98-107) mmol/L BUN 64 H (7-17) mg/dL Glucose 132 H (74-99) mg/dL POC Glucose (mg/dL) 143 H (75-99) mg/dL Calcium 7.3 L (8.4-10.2) mg/dL Assessment and Plan Assessment: Acute hypoxemic respiratory failure secondary to left lower lobe pneumonia, status post intubation and mechanical ventilation as well as bronchoscopy on 07/11/2021, extubation on 07/23/2021, and reintubation on 07/26/2021. S/P bedside bronchoscopy, 07/31/2021, for left lung collapse. Septic shock, with multiorgan system failure. 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 S/P tracheostomy and PEG tube placement, 07/27/2021. CAD, status post bypass grafting. Acute hypoxemic respiratory failure secondary to pneumonia and COPD. History of COPD from previous significant tobacco use. History of hypertension. History of hyperlipidemia. Status post pacemaker implantation. Vague history of CHF. Plan: Plan dated 07/10/2021. Currently, the patient's on azithromycin and Zosyn. The patient is also getting any treatments with albuterol sulfate and ipratropium bromide. We will continue to follow make recommendations were appropriate. Prognosis is certainly guarded. The CAT scan, x-rays, and medications are all reviewed. The patient should have outpatient evaluation of her chronic lung disease once she is better and is discharged. Infectious disease should see this patient. Plan dated 07/11/2021. The patient was transferred to the intensive care unit for further monitoring and management. She was transferred sometime after midnight. She remains on BiPAP. Saturations are reasonable. Chest x-ray shows near complete opacification of the left lung. We recommend the right lung to be down, and significant chest physiotherapy to the left lung. Additional recommendations and suggestions are forthcoming. Labs, x-rays, and medications are reviewed. We'll continue to follow. Plan dated 07/12/2021. The patient was intubated and mechanically ventilated yesterday, 07/11/2021. In addition, an arterial line was placed, as well as a central line, and the patient underwent bronchoscopy. Currently everything is pending. The patient remains on the mechanical ventilator. She is on propofol at 15 mcg/kg/m, and norepinephrine at 61 mcg/m. I'm going to add vasopressin to her regimen. Will have nephrology see her for her worsening renal function and poor urine output. Cortisol level was adequate. She remains on Zosyn as per infectious diseases. I did have a very long conversation with her daughter. I explained to the daughter that we are giving her best supportive care. The patient remains a full code at this time. Plan dated 07/27/2021. The patient will undergo tracheostomy and PEG tube placement today. Was started on enteral nutrition. Blood gases show a respiratory alkalosis. No ventilator changes. We'll make sure the patient's on DuoNeb every 4 hours [id number]. Continue GI and DVT prophylaxis. Zosyn was started empirically. No additional recommendations are made. Prognosis is guarded. The patient remains on fluconazole. Labs, x-rays, and medications are all reviewed. Prognosis is guarded. We'll continue to follow the patient and make recommendations where appropriate. Plan dated 07/28/2021. The patient did have her PEG tube placement and tracheostomy performed yesterday. She continues on Zosyn and Diflucan. The patient is getting tube feedings with vital 1.2 at 20 mL an hour, with a goal of 33 mL an hour. The TPN will be stopped later today. Later today, the patient can have a daily interruption of sedation and a spontaneous breathing trial. Labs, x-rays, and medications are all reviewed. We will continue to follow the patient and make recommendations where appropriate. The patient's overall prognosis is very guarded. Plan dated 07/29/2021. Currently, the patient is on the volume assist control mode. Yesterday, she spent about 4 hours on pressure support. Today, we'll place her on pressure support again, and transition her to a trach collar. Labs, x-rays, and medications are all reviewed. The most recent computed tomography scan shows almost complete resolution of the previously seen hyperdense focus in the right parietal lobe. The patient remains on Zosyn. Additional recommendations suggestions are forthcoming. Solu-Medrol is discontinued. We will continue to follow the patient and make recommendations where appropriate. Prognosis is certainly guarded. Plan dated 07/30/2021. The patient will again be transitioned back to trach collar. Yesterday, the patient had some bleeding about the trach site. The bleeding areas were cauterized by the surgeon. The patient is currently on the ventilator. She remains on antibiotics. The hope is to get her discharged tomorrow [facility]. The patient's Coumadin will be restarted. A repeat computed tomography scan of the brain will be ordered. No additional recommendations are made. Her prognosis is certainly guarded. The abnormal bleeding areas the parietal lobe on the right side, has improved. We will continue to follow make recommendations where appropriate. Prognosis is certainly guarded. Plan dated 07/31/2021. We are hoping the [facility] The patient had left lung collapse today on chest x-ray, and we did bedside bronchoscopy. No samples were sent to the laboratory. The patient will need D5W at 50 mL an hour. Saline is discontinued. Coumadin is restarted. Labs, x-rays, and medications are reviewed and is receiving tube feedings at goal. Prognosis is guarded. We'll continue to follow and make recommendations where appropriate. A repeat chest x-ray is done 1 hour after procedure. Time with Patient: Greater than 30
[2021-07-31] MEDS: NYSTATIN 100,000 UNIT/ML SUSP 500,000 UNIT/5 ML CUP PO SCH ×4 (09:41→21:33)
[2021-07-31] MEDS: SODIUM BICARBONATE TAB 650 MG TAB PO SCH (09:42)
[2021-07-31] MEDS: LOSARTAN 50 MG TAB PO SCH (09:42)
[2021-07-31] MEDS: FUROSEMIDE 10 MG/ML 2 ML VIAL IV SCH (09:42)
[2021-07-31] MEDS: SPIRONOLACTONE 25 MG TAB PO SCH (09:43)
[2021-07-31] MEDS: DEXTROSE 5% IN WATER 1,000 ML IV SCH (09:44)
[2021-07-31] MEDS ORDERED: bisacodyL 10 MG SUPP RECTAL PRN (09:46)
[2021-07-31] MEDS ORDERED: bisacodyL 5 MG TABLET.DR PO PRN (09:46)
--- NOTE | 2021-07-31 10:16 | P.PN ---
Subjective Patient is seen for follow-up for acute kidney injury. Status post trach and PEG. Patient had bleeding from tracheostomy tube which is now controlled. Maintained on IV Lasix 24 hour urine output at 2.4 L Serum creatinine at 0.78 mg/dL sodium elevated at 146 Peak creatinine this admission was 4.57. Objective - Vital Signs Vital signs: Vital Signs Temp 98.1 F 07/31/21 08:00 Pulse 82 07/31/21 09:00 Resp 33 H 07/31/21 09:00 BP 120/67 07/31/21 09:00 Pulse Ox 100 07/31/21 09:00 Intake & Output 07/30/21 07/31/21 07/31/21 18:59 06:59 18:59 Intake Total 994 636 181 Output Total 1235 1155 150 Balance -241 -519 31 Weight 80.5 kg 80.5 kg Intake: IV 240 260 40 .9 kvo 240 260 40 Intake, IV Titration 100 Amount Piperacillin-Tazobactam 3 100 .375 gm In Sodium Chloride 0.9% 100 ml @ 25 mls/hr IVPB Q8HR [facility] Rx# :[id number] Tube Feeding 564 376 141 Other 90 Output: Urine 1235 1155 150 Other: Voiding Method Indwelling Catheter Indwelling Catheter ABP, PAP, CO, CI - Last Documented Arterial Blood Pressure 163/56 - Exam Awake, comfortable, on the vent status post trach and PEG tube Examination of the heart S1 and S2 Examination lungs bilateral breath sounds are heard Abdomen is soft Examination of lower extremities shows edema 1+ bilaterally - Labs CBC & Chem 7: 07/31/21 08:10 07/31/21 08:10 Labs: Abnormal Lab Results - Last 24 Hours (Table) 07/30/21 07/31/21 07/31/21 Range/Units 11:29 05:29 08:10 WBC 12.6 H (3.8-10.6) k/uL RBC 2.73 L (3.80-5.40) m/uL Hgb 8.1 L (11.4-16.0) gm/dL Hct 25.6 L (34.0-46.0) % RDW 18.5 H (11.5-15.5) % Plt Count 74 L (150-450) k/uL Sodium (137-145) mmol/L Chloride (98-107) mmol/L BUN (7-17) mg/dL Glucose (74-99) mg/dL POC Glucose (mg/dL) 113 H 112 H (75-99) mg/dL Calcium (8.4-10.2) mg/dL 07/31/21 07/31/21 Range/Units 08:10 08:19 WBC (3.8-10.6) k/uL RBC (3.80-5.40) m/uL Hgb (11.4-16.0) gm/dL Hct (34.0-46.0) % RDW (11.5-15.5) % Plt Count (150-450) k/uL Sodium 146 H (137-145) mmol/L Chloride 116 H (98-107) mmol/L BUN 64 H (7-17) mg/dL Glucose 132 H (74-99) mg/dL POC Glucose (mg/dL) 143 H (75-99) mg/dL Calcium 7.3 L (8.4-10.2) mg/dL Assessment and Plan Assessment: 1. Acute kidney injury secondary to ATN from septic shock. Creatinine peaked at 4.57 now down to 0.9 mg/dL. Losartan has been resumed. ANAs positive with low complements. Dowj-crkuhn-vjuwtrgl DNA antibody at 8 which is in the in determinate range and all other serologies are negative. Free And lambda chains were elevated. Patient does have a history of lupus. She will need a kidney biopsy which can be done later on. Patient also had left ureteral stent placement this admission for obstructive uropathy 2. Disproportionately elevated B UN secondary to steroids currently improved 3. Septic shock from pneumonia status post bronchoscopy currently on the vent maintained on antibiotics 4. Acute hypoxic respiratory failure from pneumonia, currently on the vent. Status post trach and PEG 5. Shock liver currently improved 6. Left-sided hydronephrosis status post left ureteral stent placement on 07/16/2021 7. Hypernatremia associated with free water deficit status post D5W 8. History of mitral valve repair Plan: Continue with IV Lasix. Continue with Cozaar Decreased sodium bicarb yesterday Increase free water 200 mL every 4 hours Repeat labs in a.m. Patient will need kidney biopsy down the road staging of lupus.
--- NOTE | 2021-07-31 10:37 | XR ---
EXAMINATION TYPE: XR chest 1V portable DATE OF EXAM: 07/31/2021 COMPARISON: 07/31/2021 HISTORY: Post bronchoscopy TECHNIQUE: Single frontal view of the chest is obtained. FINDINGS: Tracheostomy tube stable. Postsurgical changes with cardiac device and PICC line stable. C hronic rib cage deformities noted. Underlying COPD noted is chronic interstitial lung disease. There is reducing consolidation pleural effusion on the left. Small right pleural effusion with basilar con solidation noted. Underlying venous congestion not excluded. IMPRESSION: 1. Persistent pleural parenchymal changes with improvement on the left post bronchoscopy. No sizable pneumothorax.
[2021-07-31 11:29] LABS: Glucose,Whole Blood 165 mg/dL (75-99)
--- NOTE | 2021-07-31 15:12 | P.PN ---
Subjective Progress Note Date: 07/31/21 CHIEF COMPLAINT: Respiratory failure HISTORY OF PRESENT ILLNESS: Patient is in the ICU. She is status post tracheostomy and PEG tube placement on 07/27/21. Patient had bleeding from her tracheostomy site. She was taken back to the OR on 07/27/21 for evaluation and control tracheostomy site bleeding. There was an area that required cauterization. Patient has had bleeding from her mouth and nose. There is no acute bleeding from the tracheostomy site. There is mucus that is pink tinged around the tracheostomy site. Patient did have a small air leak a trach asthma site. More air was placed in the bulb by respiratory therapy. Patient is holding her volumes. Patient is tolerating tube feeds. She is at goal rate of 47ml/hr. Patient did require bronchoscopy this morning for left lung collapse and mucous plugging. Patient is currently trach collaring. Afebrile. WBC down from 19.5-12.6 hemoglobin stable at 8.1 platelets are down at 74 INR 1.1. Patient's Coumadin currently remains on hold PHYSICAL EXAM: VITAL SIGNS: Reviewed. GENERAL: Well-developed in no acute distress. HEENT: Head is atraumatic, normocephalic. Tracheostomy site no active bleeding. There is pink tinged mucus from the tracheostomy site. ABDOMEN: Soft. Nondistended. PEG tube site clean dry and intact. There is some dry areas of blood noted ASSESSMENT: 1. Acute hypoxic respiratory failure secondary to lupus pneumonitis and possible community acquired pneumonia status post tracheostomy placement 2. Severe protein calorie malnutrition status post PEG tube placement 3. Sepsis 4. Thrombocytopenia PLAN: -Continue tube feeds at goal rate -Continue tracheostomy care -Continue supportive care -Continue ICU management Physician [employer] Intern note has been reviewed by physician. Signing provider agrees with the documented findings, assessment, and plan of care. I have personally seen and examined the patient, reviewed the [employer] /PAs history, exam and MDM and agree with the assessment and plan as written. Based on total visit time, I have performed more than 50% of the visit. As above: Patient had a bronchoscopy earlier today. No active bleeding from the tracheostomy site since yesterday. Apparently did have some epistaxis. Coumadin is still on hold per other services at this point. We'll follow. Objective - Vital Signs Vital signs: Vital Signs Temp 97.1 F L 07/31/21 12:00 Pulse 81 07/31/21 12:00 Resp 33 H 07/31/21 12:00 BP 140/64 07/31/21 12:00 Pulse Ox 99 07/31/21 12:40 Intake & Output 07/30/21 07/31/21 07/31/21 18:59 06:59 18:59 Intake Total 994 636 452 Output Total 1235 1155 700 Balance -241 -519 -248 Weight 80.5 kg 80.5 kg Intake: IV 240 260 170 .9 kvo 240 260 70 D5W 100 Intake, IV Titration 100 Amount Piperacillin-Tazobactam 3 100 .375 gm In Sodium Chloride 0.9% 100 ml @ 25 mls/hr IVPB Q8HR [facility] Rx# :[id number] Tube Feeding 564 376 282 Other 90 Output: Urine 1235 1155 700 Other: Voiding Method Indwelling Catheter Indwelling Catheter Indwelling Catheter ABP, PAP, CO, CI - Last Documented Arterial Blood Pressure 163/56 - Labs CBC & Chem 7: 07/31/21 08:10 07/31/21 08:10 Labs: Abnormal Lab Results - Last 24 Hours (Table) 07/31/21 07/31/21 07/31/21 Range/Units 05:29 08:10 08:10 WBC 12.6 H (3.8-10.6) k/uL RBC 2.73 L (3.80-5.40) m/uL Hgb 8.1 L (11.4-16.0) gm/dL Hct 25.6 L (34.0-46.0) % RDW 18.5 H (11.5-15.5) % Plt Count 74 L (150-450) k/uL Sodium 146 H (137-145) mmol/L Chloride 116 H (98-107) mmol/L BUN 64 H (7-17) mg/dL Glucose 132 H (74-99) mg/dL POC Glucose (mg/dL) 112 H (75-99) mg/dL Calcium 7.3 L (8.4-10.2) mg/dL 07/31/21 07/31/21 Range/Units 08:19 11:28 WBC (3.8-10.6) k/uL RBC (3.80-5.40) m/uL Hgb (11.4-16.0) gm/dL Hct (34.0-46.0) % RDW (11.5-15.5) % Plt Count (150-450) k/uL Sodium (137-145) mmol/L Chloride (98-107) mmol/L BUN (7-17) mg/dL Glucose (74-99) mg/dL POC Glucose (mg/dL) 143 H 165 H (75-99) mg/dL Calcium (8.4-10.2) mg/dL
--- NOTE | 2021-07-31 15:33 | P.PN ---
Subjective Progress Note Date: 07/31/21 Principal diagnosis: resp failure Patient daughter at bedside, nurse at bedside. Increased lethargy today, per nursing difficult stopping bleeding from nose, thrombocytopenia worsening. Hematuria is improving. DIC work-up Objective - Vital Signs Vital signs: Vital Signs Temp 97.1 F L 07/31/21 12:00 Pulse 82 07/31/21 14:00 Resp 28 H 07/31/21 14:00 BP 138/60 07/31/21 14:00 Pulse Ox 97 07/31/21 14:00 Intake & Output 07/30/21 07/31/21 07/31/21 18:59 06:59 18:59 Intake Total 994 636 619 Output Total 1235 1155 900 Balance -241 -519 -281 Weight 80.5 kg 80.5 kg Intake: IV 240 260 290 .9 kvo 240 260 90 D5W 200 Intake, IV Titration 100 Amount Piperacillin-Tazobactam 3 100 .375 gm In Sodium Chloride 0.9% 100 ml @ 25 mls/hr IVPB Q8HR [facility] Rx# :[id number] Tube Feeding 564 376 329 Other 90 Output: Urine 1235 1155 900 Other: Voiding Method Indwelling Catheter Indwelling Catheter Indwelling Catheter ABP, PAP, CO, CI - Last Documented Arterial Blood Pressure 163/56 - Exam - Constitutional General appearance: average body habitus, cooperative, no acute distress - EENT - epistaxis Patient's nose has gauze and it. Patient has blood around the corners of her mouth. nose bleeding Eyes: anicteric sclerae, EOMI ENT: hearing grossly normal - Neck Neck: no lymphadenopathy - Respiratory Respiratory: bilateral: diminished - Cardiovascular Rhythm: irregular Heart sounds: normal: S1, S2 Peripheral Edema: bilateral: 1+, Left Arm Swelling - Musculoskeletal Musculoskeletal: generalized weakness - Psychiatric Patient is - Labs CBC & Chem 7: 07/31/21 08:10 07/31/21 16:27 Labs: Abnormal Lab Results - Last 24 Hours (Table) 07/31/21 07/31/21 07/31/21 Range/Units 05:29 08:10 08:10 WBC 12.6 H (3.8-10.6) k/uL RBC 2.73 L (3.80-5.40) m/uL Hgb 8.1 L (11.4-16.0) gm/dL Hct 25.6 L (34.0-46.0) % RDW 18.5 H (11.5-15.5) % Plt Count 74 L (150-450) k/uL Sodium 146 H (137-145) mmol/L Chloride 116 H (98-107) mmol/L BUN 64 H (7-17) mg/dL Glucose 132 H (74-99) mg/dL POC Glucose (mg/dL) 112 H (75-99) mg/dL Calcium 7.3 L (8.4-10.2) mg/dL 07/31/21 07/31/21 Range/Units 08:19 11:28 WBC (3.8-10.6) k/uL RBC (3.80-5.40) m/uL Hgb (11.4-16.0) gm/dL Hct (34.0-46.0) % RDW (11.5-15.5) % Plt Count (150-450) k/uL Sodium (137-145) mmol/L Chloride (98-107) mmol/L BUN (7-17) mg/dL Glucose (74-99) mg/dL POC Glucose (mg/dL) 143 H 165 H (75-99) mg/dL Calcium (8.4-10.2) mg/dL Assessment and Plan Plan: Chest x-ray: report reviewed Assessment and Plan (1) Coagulopathy (2) Thrombocytopenia Current Visit: Yes Status: Acute Priority: Medium Code(s): D68.9 - COAGULATION DEFECT, UNSPECIFIED SNOMED Code(s): 18626335 Plan: On laboratory/chart review it appears as though patient may have experienced hemorrhagic stroke while INR was supratherapeutic. From a Hematology standpoint, after an acute brain bleed there is no recommend ation for anticoagulation for at least 6 weeks to 3 months. As long as there is active bleeding anticoagulation cannot be recommended. If it is felt that the underlying cause of hemorrhagic stroke was supratherapeutic INR then, with correction of the underlying cause, resuming anticoagulation could be considered with very close monitoring of INR, only once any active bleeding is felt to be controlled. Will defer decision to resume anticoagulation to Neurologist who has seen and evaluated the brain images as well as MD ordering coumadin for the pt. Platelets on the other had continue to trend down since admission, possible due to inflammation, medication, but also need to review and assess for DIC. DIC panel today. Increased lethargy today: Neurology has ordered CT Brain Concern for DIC: Check CMP (liver funciton), PT, PTT, FIbrinogen, LDH Daily cbc DDAVP x1 now Doctor attests: I performed a history and physical examination of this patient, developed impression and plan of care. Discussed with dictator. I agree with dictators note, documented as a scribe.
[2021-07-31] MEDS: SODIUM CHLORIDE 0.9% 1,000 ML IV SCH (15:35)
--- NOTE | 2021-07-31 16:52 | P.PN ---
Subjective Progress Note Date: 07/31/21 The patient is seen at bedside and is about the same. Per the general surgery team no further bleeding from tracheostomy site but has had bleeding from mouth and nose. Anticoagulation has not been started or antiplatelets. Her plateletes are as low as 74K and trending down. Hematology is on board. Her daughter is at bedside and stated that patient was wiggling her toes yesterday. Per nurse she had a mucous plug and had to be bronched today and received some Propofol. Objective - Vital Signs Vital signs: Vital Signs Temp 97.1 F L 07/31/21 12:00 Pulse 82 07/31/21 14:00 Resp 28 H 07/31/21 14:00 BP 138/60 07/31/21 14:00 Pulse Ox 97 07/31/21 14:00 Intake & Output 07/30/21 07/31/21 07/31/21 18:59 06:59 18:59 Intake Total 994 636 619 Output Total 1235 1155 900 Balance -241 -519 -281 Weight 80.5 kg 80.5 kg Intake: IV 240 260 290 .9 kvo 240 260 90 D5W 200 Intake, IV Titration 100 Amount Piperacillin-Tazobactam 3 100 .375 gm In Sodium Chloride 0.9% 100 ml @ 25 mls/hr IVPB Q8HR [facility] Rx# :[id number] Tube Feeding 564 376 329 Other 90 Output: Urine 1235 1155 900 Other: Voiding Method Indwelling Catheter Indwelling Catheter Indwelling Catheter ABP, PAP, CO, CI - Last Documented Arterial Blood Pressure 163/56 - Exam GENERAL: The patient is lying in bed and does not appear in acute distress. HENT: Old blood clot nose and mouth. LUNG: Trach on ventilator. NEUROLOGICAL: Higher mental function: The patient is drowsy but is aweakable. She is following simple commands. Cranial nerves: The pupils are round, equal. No facial weakness. Sticking her tongue out and moving sided to side without difficulty. Motor: The strength is limited but subtle movement in hand finger 0-1. Otherwise no movement noted. Cerebellum: Unable to assess. SOME OF THE WORK-UP: Ammonia level <9 Creatning on initial presentation is 1.78-->1.19 AST: 23-->400-->522-->46 ALT 9-->1800-->889-->100 KELLY is positive Double strand DNA ab Indeterminate, complement C3: 20 and c4:2.0 C-ANCA and P-ANCA are negative. Computed tomography scan of head 07/21/2021 revealed unchanged right posterior parietal subcortical white matter focus measuring 6 mm, likely representing small intraparenchymal hemorrhage. No additional evidence for new acute hemorrhage. She had two repeated CT head at 8pm on 07/15/2021 and today around 9ish am and no change. CT head on 07/28/2021: Almost complete resolution of the previously seen hyperdense focus in the right parietal lobe likely representing a resolving parenchymal bleeding. Stable right anterior frontal suspected small subarachnoid hemorrhage. No new intracranial bleeding or new mass effect. I personally reviewed the CT of the head and I agree with the reported. Regarding the suspected small subarachnoid hemorrhage that was not seen on the initial CT of the brain during this admission that was able to appreciate. EEG on 07/15/2021: This is an abnormal routine EEG. The background slowing is suggestive of severe encephalopathy. The triphasic wave are suggestive of likely toxic-metabolic etiology. Otherwise there is no focal slowing, epileptiform discharge or seizure on the EEG. EEG on 07/16/2021: This is an abnormal routine EEG. The background slowing is suggestive of severe encephalopathy. The triphasic wave are suggestive of likely toxic-metabolic etiology. Otherwise there is no focal slowing, epileptiform discharge or seizure on the EEG. Compared to the EEG from the prior day (07/15/2021), there is no change. - Labs CBC & Chem 7: 07/31/21 08:10 07/31/21 16:27 Labs: Abnormal Lab Results - Last 24 Hours (Table) 07/31/21 07/31/21 07/31/21 Range/Units 05:29 08:10 08:10 WBC 12.6 H (3.8-10.6) k/uL RBC 2.73 L (3.80-5.40) m/uL Hgb 8.1 L (11.4-16.0) gm/dL Hct 25.6 L (34.0-46.0) % RDW 18.5 H (11.5-15.5) % Plt Count 74 L (150-450) k/uL Sodium 146 H (137-145) mmol/L Chloride 116 H (98-107) mmol/L BUN 64 H (7-17) mg/dL Glucose 132 H (74-99) mg/dL POC Glucose (mg/dL) 112 H (75-99) mg/dL Calcium 7.3 L (8.4-10.2) mg/dL 07/31/21 07/31/21 Range/Units 08:19 11:28 WBC (3.8-10.6) k/uL RBC (3.80-5.40) m/uL Hgb (11.4-16.0) gm/dL Hct (34.0-46.0) % RDW (11.5-15.5) % Plt Count (150-450) k/uL Sodium (137-145) mmol/L Chloride (98-107) mmol/L BUN (7-17) mg/dL Glucose (74-99) mg/dL POC Glucose (mg/dL) 143 H 165 H (75-99) mg/dL Calcium (8.4-10.2) mg/dL Assessment and Plan Assessment: Acute small Hemorrhagic stroke over the right parietal---resolving and possible subarachnoid over the right frontal: Unsure cause. Unsure exact cause. It was initially thought due to supratherapeutic INR but currently is bleeding from nose, mouth and is not on anticoagulation or antiplatelets and has been off anticoagulation for prolonged peroid of time. hemorrhage over the right parietal almost resolved and image is stable. 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 ---mentation improving. 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 Stable right anterior frontal suspected small subarachnoid hemorrhage. No new intracranial bleeding or new mass effect. I personally reviewed the CT of the head and I agree with the reported. Regarding the suspected small subarachnoid hemorrhage that was not seen on the initial CT of the brain during this admission that was able to appreciate. I ordered repeat CT head since having worsening of weakness in legs. Rule out new bleed. Hold start of anticoagulation because of thrombocytopenia and had episodes of bleeding from trach and nose and mouth. Once thrombocytopenia and bleeding resolves and bleeding controlled then will reconsider starting her home coumadin. Hematology team is consulted. Nephrology team is on board. Will defer the rest of medical management to the primary and ICU team. The patient needs to follow-up with a neurologist as outpatient within 1-2 weeks upon discharge. The plan is discussed with her daughter and her nurse. Dr. Yepez is covering neurology service tomorrow AM then Dr. Forbes starts Tuesday AM. Tremaine Mcguire M.D. Neuro-hospitalist Time with Patient: Less than 30
[2021-07-31 17:10] LABS: ALT 129 U/L (4-34); AST 109 U/L (14-36); African American GFR (CKD) >90 (>60 ml/min/1.73 sqM); Albumin 1.5 g/dL (3.5-5.0); Alkaline Phosphatase 73 U/L (38-126); Anion Gap 2 mmol/L; Blood Urea Nitrogen 48 mg/dL (7-17); Carbon Dioxide 19 mmol/L (22-30); Chloride 121 mmol/L (98-107); Glucose 85 mg/dL (74-99); LDH 1379 U/L (313-618); Non-African American GFR(CKD) >90 (>60 ml/min/1.73 sqM); Potassium 3.2 mmol/L (3.5-5.1); Sodium 142 mmol/L (137-145); Total Bilirubin 0.8 mg/dL (0.2-1.3); Total Protein 3.6 g/dL (6.3-8.2)
[2021-07-31] MEDS: FLUCONAZOLE IN NACL,ISO-OSM 200 MG in SALINE 1 100ML.BAG IVPB SCH (17:16)
[2021-07-31 17:19] LABS: Partial Thromboplastin Time 20.7 sec (22.0-30.0)
[2021-07-31 17:31] LABS: Calcium 5.7 mg/dL (8.4-10.2)
[2021-07-31] MEDS ORDERED: DESMOPRESSIN ACETATE 24 MCG in SODIUM CHLORIDE 0.9% 50 ML IVPB ONE (18:45)
[2021-07-31 18:46] LABS: ALT 158 U/L (4-34); AST 144 U/L (14-36); African American GFR (CKD) >90 (>60 ml/min/1.73 sqM); Albumin 1.9 g/dL (3.5-5.0); Alkaline Phosphatase 99 U/L (38-126); Anion Gap 3 mmol/L; Blood Urea Nitrogen 58 mg/dL (7-17); Calcium 7.2 mg/dL (8.4-10.2); Carbon Dioxide 26 mmol/L (22-30); Chloride 114 mmol/L (98-107); Glucose 108 mg/dL (74-99); Magnesium 1.7 mg/dL (1.6-2.3); Non-African American GFR(CKD) 87 (>60 ml/min/1.73 sqM); Potassium 3.9 mmol/L (3.5-5.1); Sodium 143 mmol/L (137-145); Total Protein 4.4 g/dL (6.3-8.2)
--- NOTE | 2021-07-31 19:00 | CT ---
EXAMINATION TYPE: CT brain wo con DATE OF EXAM: 07/31/2021 COMPARISON: 07/28/2021 HISTORY: Lower leg weakness. History of bleed. CT DLP: 1188.4 mGycm Automated exposure control for dose reduction was used. Images of the brain obtained without contrast. There is cerebral cortical atrophy. No mass effect or midline shift. No sign of intracranial hemorrha ge. The calvarium is intact. There is normal aeration of the mastoid sinuses. Skull base is intact. IMPRESSION: Cerebral atrophy. No acute intracranial abnormality. No change compared to old exam.
--- NOTE | 2021-07-31 19:42 | US ---
EXAMINATION TYPE: US venous doppler duplex UE DATE OF EXAM: 07/31/2021 COMPARISON: NONE CLINICAL HISTORY: increwase swelling. bilateral arm swelling, PICC line right arm. elevated D-Dimer SIDE PERFORMED: bilateral Right Arm: *limitations due to tracheostomy tube and PICC line bandages. appears positive for DVT l ateral right subclavian vein and axillary vein. Positive for superficial thrombus right basilic vein. Left Arm: *limitations due to tracheostomy tube and bandages. no evidence of DVT as visualized IMPRESSION: There is acute deep vein thrombosis in the right arm involving the subclavian and axillary vein.
[2021-07-31 23:14] LABS: Glucose,Whole Blood 107 mg/dL (75-99)
[2021-08-01] MEDS: IPRATROPIUM-ALBUTEROL 3 ML NEB INHALATION SCH ×5 (03:48→19:17)
[2021-08-01 06:06] LABS: Glucose,Whole Blood 155 mg/dL (75-99)
[2021-08-01] MEDS: METOCLOPRAMIDE 5 MG/ML 2 ML VIAL IVP SCH ×4 (06:13→23:43)
[2021-08-01] MEDS: INSULIN ASPART (NovoLOG) 100 UNIT/ML VIAL SQ SCH ×4 (06:13→23:42)
[2021-08-01] MEDS: INSULIN DETEMIR (LEVEMIR) 100 UNIT/ML SYR SQ SCH (06:13)
[2021-08-01] MEDS: DEXTROSE 5% IN WATER 1,000 ML IV SCH ×2 (06:18→23:45)
[2021-08-01] MEDS: PIPERACILLIN-TAZOBACTAM 3.375 GM in SODIUM CHLORIDE 0.9% 100 ML IVPB SCH (08:59)
[2021-08-01] MEDS: NYSTATIN 100,000 UNIT/ML SUSP 500,000 UNIT/5 ML CUP PO SCH ×4 (09:18→20:15)
[2021-08-01] MEDS: FUROSEMIDE 10 MG/ML 2 ML VIAL IV SCH (09:18)
[2021-08-01] MEDS: LOSARTAN 50 MG TAB PO SCH (09:19)
[2021-08-01] MEDS: SODIUM BICARBONATE TAB 650 MG TAB PO SCH (09:19)
[2021-08-01] MEDS: SPIRONOLACTONE 25 MG TAB PO SCH (09:19)
[2021-08-01 09:47] LABS: ALT 166 U/L (4-34); AST 154 U/L (14-36); African American GFR (CKD) >90 (>60 ml/min/1.73 sqM); Albumin 1.9 g/dL (3.5-5.0); Alkaline Phosphatase 96 U/L (38-126); Anion Gap 3 mmol/L; Blood Urea Nitrogen 48 mg/dL (7-17); Calcium 7.3 mg/dL (8.4-10.2); Carbon Dioxide 28 mmol/L (22-30); Chloride 113 mmol/L (98-107); Glucose 146 mg/dL (74-99); Magnesium 1.6 mg/dL (1.6-2.3); Non-African American GFR(CKD) >90 (>60 ml/min/1.73 sqM); Potassium 3.8 mmol/L (3.5-5.1); Sodium 144 mmol/L (137-145); Total Bilirubin 0.9 mg/dL (0.2-1.3); Total Protein 4.4 g/dL (6.3-8.2)
[2021-08-01 09:48] LABS: Anisocytosis Slight; Basophils % (A) 0 %; Eosinophils # (A) 0.1 k/uL (0-0.7); Eosinophils % (A) 2 %; HCT 24.4 % (34.0-46.0); HGB 7.5 gm/dL (11.4-16.0); Hypochromasia Moderate; Lymphocytes # (A) 0.3 k/uL (1.0-4.8); Lymphocytes % (A) 3 %; MCHC 30.9 g/dL (31.0-37.0); MCV 93.9 fL (80.0-100.0); Macrocytosis Slight; Mean Platelet Volume 13.5; Monocytes # (A) 0.2 k/uL (0-1.0); Monocytes % (A) 2 %; Neutrophils # (A) 8.7 k/uL (1.3-7.7); Neutrophils % (A) 93 %; RBC 2.59 m/uL (3.80-5.40); RDW 18.9 % (11.5-15.5); WBC 9.3 k/uL (3.8-10.6)
[2021-08-01 09:52] LABS: Prothrombin Time 10.9 sec (9.0-12.0)
[2021-08-01 09:56] LABS: Platelet Count 61 k/uL (150-450)
--- NOTE | 2021-08-01 10:11 | P.PN ---
Subjective Progress Note Date: 08/01/21 Principal diagnosis: Shortness of breath. Pulmonary consult dated 07/10/2021. 69-year-old female, poor historian, who apparently was sent to the emergency department, from [facility] for pneumonia. The patient was recently also at [facility], for a pacemaker procedure. The patient complains of increasing shortness of breath, cough, congestion, and low saturations. She typically uses oxygen at 2 L/m, as needed. She is a heavy smoker in the past. She was admitted with a left lower lobe. She's currently on 6 L nasal cannula. She is not receiving any IV fluids. White count 3.6, hemoglobin 9.9, hematocrit 31.4, and platelet count 199,000. Sodium 141, potassium 4.3, chlorides 108, CO2 20, anion gap 13, BUN 35, and creatinine 1.93. Troponins were 0.[address] showed significant consolidation in the left lung base. Other findings in the other lung contreras were noted. Progress note dated 07/11/2021. 71-year-old female seen yesterday in consultation. She apparently was sent into the emergency department from [facility] for pneumonia. The patient came in complaining of shortness of breath, cough, chest congestion, and low saturations. Last night, right around midnight or so, her respiratory status worsened, and she was transferred to the intensive care unit, and placed on BiPAP. Currently, her BiPAP settings are 12/5 and 70%. She's not receiving any IV fluids. The patient is on Zosyn and azithromycin. Chest x-ray shows significant opacification of the left lung. I recommend significant chest physiotherapy. White count 12.5, hemoglobin 10.1, hematocrit 32.1, and platelet count 248,000. PT was 16 with an INR 1.6. Blood gases show pO2 of 61, pCO2 43, and pH is 7.27. This was apparently on 35% oxygen. Sodium 141, potassium 4, chlorides 112, CO2 21, BUN 42, and creatinine 1.60. Troponin 0.354. Chest x- ray shows extensive consolidation and volume loss in the left hemithorax. Progress note dated 07/12/2021. 71-year-old female again seen in room 254. The patient was admitted with a diagnosis of left-sided pneumonia. The patient developed acute respiratory failure, required transfer to the intensive care unit, and yesterday, was intubated and mechanically ventilated. The patient also had an arterial line placed, a central line placed, and did undergo bronchoscopy. She remains on mechanical ventilator, on volume assist control, rate 24, tidal volume 400, FiO2 60%, and PEEP of 10. Blood gases show a PaO2 of 223, pCO2 of 34, and a pH is 7.16. His blood gases were done on 80%. At that point, I started the patient on a sodium bicarbonate drip, with 2 ampules of sodium bicarbonate and D5W at 100 mL an hour. The patient remains on propofol at 15 mcg/kg/m and norepinephrine at 61 mcg/m. In addition, the patient is getting vital AF at 10 mL an hour. We have asked nephrology to see her. I've also asked for a cortisol level, and for her to be started on vasopressin. She is currently on Zosyn. White count 21.8, hemoglobin 10.4, hematocrit 32.6, platelet count 340,000. PTT is 28.8 with an INR of 2.9. Sodium 143, potassium 4.3, chlorides 117, CO2 13, anion gap 13, BUN 46, and creatinine 2.68. AST is 4763. ALT is 1213. Cortisol level was 55. Chest x-ray shows left greater than right airspace disease, although the findings in the left chest, are improved post intubation. Reevaluated today on 07/24/2021, patient was extubated yesterday, and so far she seems to be tolerating the extubation rather well. She is however on airvo with FiO2 of 70% and flow of 50 L/m., Patient has O2 saturation in the high 90s hence we'll titrate the FiO2 down to 60% or possibly 50% and obtaining an O2 saturation of 93% or better. Patient is hemodynamically stable, not requiring any pressors. She does have a paced rhythm, she is awake, alert, oriented, foll ows simple instructions, however she has a very weak cough. Recommended incentive spirometry at bedside, patient is scheduled to have a PICC line placed today, continues to have a left IJ central line in place today. And has been present since the of last month. Her sodium is elevated, hence the patient is on D5W at 100 mL per hour. Speech therapy to evaluate the patient today and assess his swallow evaluation, if the patient fails may consider Lasix again nasogastric tube for enteral feeding. WBC count today is 24.5 hemoglobin is 10.2. Her sodium is 149. BUN is improving creatinine is significantly improved down to 1.81 today and the patient is having good urine output. Liver enzymes have significantly improved over the last 1 week. Patient remains on Solu- Medrol, and I cut down the dose to 60 mg IV push every 8 hours. She is now off antibiotics as she received full course of treatment for presumptive pneumonia. Reevaluated today on 07/25/2021, patient remains extubated, patient was extubated 2 days ago, so far she seems to be tolerating the extubation well, however the patient remains marginal, she has a very poor cough, and she may be developing worsening left lower lobe atelectasis and consolidation based on the chest x-ray today. Patient is unable to clear secretions with her weak cough. Her chest x- ray continues to show bilateral pneumonia left more so than right, her renal functioning however is improving, and her creatinine is much better today compared to the last few days. Patient is able to follow instructions, remains profoundly weak. Her urine output seems to be excellent, in the last 24 hours, patient had 2420 in and 04/21/2004 out. Hence no plan to give the patient any Lasix at this time. She is in atrial flutter. Patient is hemodynamically stable, not requiring any pressors. She remains on airvo at 55% FiO2 and 50 L flow. O2 saturation is in the mid 90s. Multiple attempts have been made to place an orogastric tube in this patient or a nasogastric tube, and I could not place one even with a glidescope use, and direct visualization of the vocal cords, and for some reason the nasogastric tube goes into the vocal cords every time we have attempted. Could not get it into the area posterior to the vocal cords. At any rate may have to consider a PEG tube placement in this patient comes next week. Sodium remains elevated at 149, patient continues to receive D5W. Reevaluated today on 07/26/2021, patient took a downhill course early this morning around 4 AM, patient developed complete opacification of the left lung and she desaturated down. Picture of the chest x-ray was sent to me early this morning, and I recommended immediate intubation, mechanical ventilation, and I saw this patient this morning continues to have complete opacification of the left lung with ipsilateral deviation of the trachea consistent with mucous plugging of the left mainstem bronchus. Hence we'll write came in this morning, I evaluated the patient, and the first thing I did was to bronchoscope the patient cleared all the mucous plugs from the left mainstem bronchus, and I performed lavage of the left lung until completely cleared. Restarted the patient back on antibiotics to Zosyn, cultures from the BAL are pending. Patient is now again back on mechanical ventilation, and early this morning she was on assist control rate of 24th of volume 400 FiO2 100% and PEEP of 5. ABG shortly after she was intubated showed a pO2 of 77 pCO2 41 pH of 7.39. Patient is on propofol at 30 mcg/kg/m, she is on TPN at 50 mL per hour, but now that we have an orogastric tube in place, patient would have enteral feeding. Her urine output seems to be excellent. Her IV fluid is at D5W at 100 mL per hour. I recommended increasing back her Solu-Medrol, and she is active on Zosyn. I did consult Dr. paniagua as per family's request for tracheostomy evaluation, and he is apparently scheduling the patient for tracheostomy and PEG tube placement tomorrow. WBC count today is 26.5 hemoglobin is 10.5. Basic metabolic profile is normal creatinine is up a bit today up to 1.39. Patient did receive Lasix yesterday. And she had excellent urine output after the Lasix. Presently diuretics are on hold Progress note dated 07/27/2021. 71-year-old female admitted on July 09 for respiratory failure. She came to the intensive care unit on July 11, and was intubated on the same day. She was extubated on July 23, and unfortunately, was reintubated on July 26. He is currently on volume assist control, rate 24, tidal volume 400, FiO2 35%, PEEP of 5. Blood gases show pO2 of 101, pCO2 33, and a pH is 7.48. These blood gases are consistent with normoxemia and a respiratory alkalosis. The patient's getting D5W at 100 mL an hour, propofol at 20 mcg/kg/m, and TPN at 30 mL an hour. The patient will have a tracheostomy and PEG tube placement today. White count 22.6, hemoglobin 8.5, hematocrit 27.3, and platelet count 130,000. Sodium 140, potassium 2.9, chlorides 110, CO2 26, BUN 80, and creatinine 1.19. Albumin is 2.0. Chest x-rays consistent with bilateral airspace disease pleural effusion, left greater than right, and most consistent with fluid overload. Other than Heidi in the bronchial washings, microbiology has been negative. Progress note dated 07/28/2021. 72-year-old female, admitted on July 09 for respiratory failure. She came to the intensive care unit on July 11, and was intubated on the same day. She was extubated on July 23, and was reintubated on July 26. The patient had a tracheostomy and PEG tube placement on July 27. Ventilator settings include volume assist control, rate 24, tidal volume 400, FiO2 35%, and PEEP of 5, to be dropped down to 30%, and PEEP of 5. Blood gases show a PaO2 of 1:15, pCO2 of 31, and a pH is 7.49. Blood gases consistent with respiratory alkalosis. The patient remains on Zosyn and Diflucan. The patient's getting tube feedings with vital 1.2 at 20 mL an hour, with a goal of 33 mL an hour. The patient will have a spontaneous breathing trial today. The patient's getting dextrose at 50 mL an hour, TPN at 30 mL an hour, propofol at 10 mics per kilogram per minute. White count 20.7, hemoglobin 8.6, hematocrit 26.8, platelet count 129,000. Sodium 138, potassium 4.1, chlorides 109, CO2 23, BUN 68, and creatinine 0.96. AST of 66 with an ALT of 104. Albumin is 2. Chest x-ray is essentially unchanged and shows a bilateral interstitial pattern. Progress note dated 07/29/2021. 71-year-old female admitted on July 09 for respiratory failure. She came to the intensive care unit on July 11, and was intubated on the same day. She was extubated on the , and was reintubated on the . She had a tracheostomy and PEG tube placement on 07/27/2021. She remains on the mechanical ventilator. Currently, she is on volume assist control, rate 24, tidal volume 400, FiO2 30%, PEEP of 5. The gases show pO2 104, pCO2 32, and a pH is 7.47. She's getting saline at 20 mL an hour. TPN is been weaned off. She getting vital 1.2 at 33 mL an hour, which is goal. The patient will be placed on pressure support of 5 and CPAP of 5, and it hopefully transitioned to trach collar. White count 20.4, hemoglobin 8.8, hematocrit 28.3, and platelet count is currently pending. Sodium 140, potassium 3.8, chlorides 109, CO2 24, BUN 72, creatinine 1.11. Chest x-ray shows some retrocardiac density and/or infiltrate. Progress note dated 07/30/2021. 71-year-old female admitted back on July 09 for respiratory failure. She came to the intensive care unit on July 11, and was intubated on the same day, extubated on the , and reintubated on the . She underwent tracheostomy and PEG tube placement on 07/27/2021. Yesterday, the patient has some bleeding around the trach site. The surgeon ended up cauterizing the bleeding areas. Currently, she back on volume assist control. Yesterday, before the surgical procedure, she was on trach collar. She's on volume assist control, rate 24, tidal volume 400, FiO2 30%, and PEEP of 5. No blood gases today. The patient remains on Zosyn and Diflucan. The patient's getting saline at 20 mL an hour. In addition, the patient's getting vital AF at 47 mL an hour, which is goal. We will attempt again today to transition the patient from volume assist control, pressure support ventilation, to trach collar. The goal is [facility], [facility]. The patient will be started back on her Coumadin. The patient will have a repeat computed tomography scan. Laboratory data includes a white count of 19.5, hemoglobin 8, hematocrit 25.9, and a platelet count which is currently pending. Sodium and potassium normal. Chlorides 112, CO2 24, BUN 72, and creatinine 0 .95., Chest x-rays are unchanged. Progress note dated 07/31/2021. 71-year-old female admitted back on July 09 for respiratory failure. She came to the intensive care unit, 2 days later on July 11, and was intubated on the same day. She was extubated on July 23, and reintubated on 08/05/2021. On 07/27/2021, she underwent tracheostomy and PEG tube placement. She did have some bleeding about the trach site. The site was cauterized, and the sutures that were too tight, moved. Currently, she is on trach collar 35%. Chest x-ray showed a collapse of the left lung. Bronchoscopy was done at the bedside this morning. Repeat chest x-rays pending. During the procedure, she was placed on pressure support and CPAP. She also received 50 g of propofol. Currently, she is on saline at 20 mL an hour, and vital AF at 47 mL an hour, which is goal. White count 12.6, hemoglobin 8.1, hematocrit 25.6, and platelet count 74,000. Sodium 146, potassium 4.2, chlorides 116, CO2 26, anion gap 4, BUN 64, and creatinine 0.76. Progress note dated 08/01/2021. 71-year-old female, admitted back on 07/09/2021, for respiratory failure. She came to the intensive care unit 2 days later, on July 11, and was intubated on the same day. The patient was extubated on July 23, reintubated on July 26, and und erwent tracheostomy and PEG tube placement on 07/27/2021. Recently, she has some bleeding about the trach site. The surgeon cauterized the bleeding site, and remove the sutures. Also, yesterday, she had some additional bleeding, and hematology saw the patient, and thought the patient might have disseminated intravascular coagulation. The patient was found to have a blood clot in the right upper extremity. Currently, she is on pressure support of 5 and CPAP of 5, with an FiO2 of 30%. The patient can be transitioned back to tracheostomy collar. She's getting D5W at 50 mL an hour and vital AF at 47 mL an hour. Brain CT was negative. White count 9.3, hemoglobin 7.5, hematocrit 24.4, and platelet count was 61,000. Sodium 144, potassium 3.8, chlorides 113, CO2 28, E1 48, and creatinine 0.47. Albumin was 1.9. Objective - Vital Signs Vital signs: Vital Signs Temp 98.4 F 08/01/21 08:00 Pulse 78 08/01/21 08:00 Resp 26 H 08/01/21 08:00 BP 128/57 08/01/21 08:00 Pulse Ox 98 08/01/21 08:00 Intake & Output 07/31/21 08/01/21 08/01/21 18:59 06:59 18:59 Intake Total 1147 1480 344 Output Total 1150 1235 860 Balance -3 245 -516 Weight 80.5 kg 80.3 kg Intake: IV 630 710 250 .9 kvo 130 10 D5W 400 600 150 Fluconazole 100 Piperacillin-Tazobactam 3 100 100 .375 gm In Sodium Chloride 0.9% 100 ml @ 25 mls/hr IVPB Q8HR [facility] Rx# :[id number] Tube Feeding 517 470 94 Other 300 Output: Urine 1150 1235 860 Other: Voiding Method Indwelling Catheter Indwelling Catheter Indwelling Catheter ABP, PAP, CO, CI - Last Documented Arterial Blood Pressure 163/56 - Exam Currently on pressure support and CPAP, at 30%. Midline tracheostomy tube noted. HEENT examination is grossly unremarkable. Dried blood is noted at the corner of the mouth, and on the tongue. Neck supple. Full range of motion. No adenopathy thyromegaly or neck vein distention. Cardiovascular examination reveals regular rhythm rate. S1-S2 normal. No S3 or S4. No discernible murmur noted. Heart sounds are very distant. Heart rate 78 bpm. Lungs reveal coarse bilateral rhonchi. Basilar crackles are appreciated. No wheezes. Breath sounds are equal bilaterally. Saturations are 98%. Abdomen soft bowel sounds are not heard. No masses or tenderness. PEG tube noted. Extremities are intact. No cyanosis clubbing or edema. Skin is without rash or lesion. Neurologic examination is stable. - Labs CBC & Chem 7: 08/01/21 09:40 08/01/21 06:00 Labs: Abnormal Lab Results - Last 24 Hours (Table) 07/31/21 07/31/21 07/31/21 Range/Units 11:28 16:27 16:27 RBC (3.80-5.40) m/uL Hgb (11.4-16.0) gm/dL Hct (34.0-46.0) % MCHC (31.0-37.0) g/dL RDW (11.5-15.5) % Plt Count (150-450) k/uL APTT 20.7 L (22.0-30.0) sec D-Dimer 19.05 H (<0.60) mg/L FEU Potassium 3.2 L (3.5-5.1) mmol/L Chloride 121 H (98-107) mmol/L Carbon Dioxide 19 L (22-30) mmol/L BUN 48 H (7-17) mg/dL Creatinine 0.49 L (0.52-1.04) mg/dL Glucose (74-99) mg/dL POC Glucose (mg/dL) 165 H (75-99) mg/dL Calcium 5.7 L* (8.4-10.2) mg/dL AST 109 H (14-36) U/L ALT 129 H (4-34) U/L Lactate Dehydrogenase 1379 H (313-618) U/L Total Protein 3.6 L (6.3-8.2) g/dL Albumin 1.5 L (3.5-5.0) g/dL 07/31/21 07/31/21 08/01/21 Range/Units 18:19 23:12 06:00 RBC (3.80-5.40) m/uL Hgb (11.4-16.0) gm/dL Hct (34.0-46.0) % MCHC (31.0-37.0) g/dL RDW (11.5-15.5) % Plt Count (150-450) k/uL APTT (22.0-30.0) sec D-Dimer (<0.60) mg/L FEU Potassium (3.5-5.1) mmol/L Chloride 114 H 113 H (98-107) mmol/L Carbon Dioxide (22-30) mmol/L BUN 58 H 48 H (7-17) mg/dL Creatinine 0.47 L (0.52-1.04) mg/dL Glucose 108 H 146 H (74-99) mg/dL POC Glucose (mg/dL) 107 H (75-99) mg/dL Calcium 7.2 L 7.3 L (8.4-10.2) mg/dL AST 144 H 154 H (14-36) U/L ALT 158 H 166 H (4-34) U/L Lactate Dehydrogenase (313-618) U/L Total Protein 4.4 L 4.4 L (6.3-8.2) g/dL Albumin 1.9 L 1.9 L (3.5-5.0) g/dL 08/01/21 08/01/21 Range/Units 06:04 09:40 RBC 2.59 L (3.80-5.40) m/uL Hgb 7.5 L (11.4-16.0) gm/dL Hct 24.4 L (34.0-46.0) % MCHC 30.9 L (31.0-37.0) g/dL RDW 18.9 H (11.5-15.5) % Plt Count 61 L (150-450) k/uL APTT (22.0-30.0) sec D-Dimer (<0.60) mg/L FEU Potassium (3.5-5.1) mmol/L Chloride (98-107) mmol/L Carbon Dioxide (22-30) mmol/L BUN (7-17) mg/dL Creatinine (0.52-1.04) mg/dL Glucose (74-99) mg/dL POC Glucose (mg/dL) 155 H (75-99) mg/dL Calcium (8.4-10.2) mg/dL AST (14-36) U/L ALT (4-34) U/L Lactate Dehydrogenase (313-618) U/L Total Protein (6.3-8.2) g/dL Albumin (3.5-5.0) g/dL Microbiology - Last 24 Hours (Table) 07/26/21 08:15 Fungal Culture - Preliminary Bronchoalviolar Lavage - Left Yeast species Assessment and Plan Assessment: Acute hypoxemic respiratory failure secondary to left lower lobe pneumonia, status post intubation and mechanical ventilation as well as bronchoscopy on 07/11/2021, extubation on 07/23/2021, and reintubation on 07/26/2021. S/P bedside bronchoscopy, 07/31/2021, for left lung collapse. Questionable disseminated intravascular coagulation. Right upper extremity DVT. Septic shock, with multiorgan system failure. 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 S/P tracheostomy and PEG tube placement, 07/27/2021. CAD, status post bypass grafting. Acute hypoxemic respiratory failure secondary to pneumonia and COPD. History of COPD from previous significant tobacco use. History of hypertension. History of hyperlipidemia. Status post pacemaker implantation. Vague history of CHF. Plan: Plan dated 07/10/2021. Currently, the patient's on azithromycin and Zosyn. The patient is also getting any treatments with albuterol sulfate and ipratropium bromide. We will continue to follow make recommendations were appropriate. Prognosis is certainly guarded. The CAT scan, x-rays, and medications are all reviewed. The patient should have outpatient evaluation of her chronic lung disease once she is better and is discharged. Infectious disease should see this patient. Plan dated 07/11/2021. The patient was transferred to the intensive care unit for further monitoring and management. She was transferred sometime after midnight. She remains on BiPAP. Saturations are reasonable. Chest x-ray shows near complete opacification of the left lung. We recommend the right lung to be down, and significant chest physiotherapy to the left lung. Additional recommendations and suggestions are forthcoming. Labs, x-rays, and medications are reviewed. We'll continue to follow. Plan dated 07/12/2021. The patient was intubated and mechanically ventilated yesterday, 07/11/2021. In addition, an arterial line was placed, as well as a central line, and the patient underwent bronchoscopy. Currently everything is pending. The patient remains on the mechanical ventilator. She is on propofol at 15 mcg/kg/m, and norepinephrine at 61 mcg/m. I'm going to add vasopressin to her regimen. Will have nephrology see her for her worsening renal function and poor urine output. Cortisol level was adequate. She remains on Zosyn as per infectious diseases. I did have a very long conversation with her daughter. I explained to the daughter that we are giving her best supportive care. The patient remains a full code at this time. Plan dated 07/27/2021. The patient will undergo tracheostomy and PEG tube placement today. Was started on enteral nutrition. Blood gases show a respiratory alkalosis. No ventilator changes. We'll make sure the patient's on DuoNeb every 4 hours [id number]. Continue GI and DVT prophylaxis. Zosyn was started empirically. No additional recommendations are made. Prognosis is guarded. The patient remains on fluconazole. Labs, x-rays, and medications are all reviewed. Prognosis is guarded. We'll continue to follow the patient and make recommendations where appropriate. Plan dated 07/28/2021. The patient did have her PEG tube placement and tracheostomy performed y esterday. She continues on Zosyn and Diflucan. The patient is getting tube feedings with vital 1.2 at 20 mL an hour, with a goal of 33 mL an hour. The TPN will be stopped later today. Later today, the patient can have a daily interruption of sedation and a spontaneous breathing trial. Labs, x-rays, and medications are all reviewed. We will continue to follow the patient and make recommendations where appropriate. The patient's overall prognosis is very guarded. Plan dated 07/29/2021. Currently, the patient is on the volume assist control mode. Yesterday, she spent about 4 hours on pressure support. Today, we'll place her on pressure support again, and transition her to a trach collar. Labs, x-rays, and medications are all reviewed. The most recent computed tomography scan shows almost complete resolution of the previously seen hyperdense focus in the right parietal lobe. The patient remains on Zosyn. Additional recommendations suggestions are forthcoming. Solu-Medrol is discontinued. We will continue to follow the patient and make recommendations where appropriate. Prognosis is certainly guarded. Plan dated 07/30/2021. The patient will again be transitioned back to trach collar. Yesterday, the patient had some bleeding about the trach site. The bleeding areas were cauterized by the surgeon. The patient is currently on the ventilator. She remains on antibiotics. The hope is to get her discharged tomorrow to [facility]. The patient's Coumadin will be restarted. A repeat computed tomography scan of the brain will be ordered. No additional recommendations are made. Her prognosis is certainly guarded. The abnormal bleeding areas the parietal lobe on the right side, has improved. We will continue to follow make recommendations where appropriate. Prognosis is certainly guarded. Plan dated 07/31/2021. We are hoping the [facility]. The patient had left lung collapse today on chest x-ray, and we did bedside bronchoscopy. No samples were sent to the laboratory. The patient will need D5W at 50 mL an hour. Saline is discontinued. Coumadin is restarted. Labs, x-rays, and medications are reviewed and is receiving tube feedings at goal. Prognosis is guarded. We'll continue to follow and make recommendations where appropriate. A repeat chest x-ray is done 1 hour after procedure. Plan dated 08/01/2021. The patient's Zosyn can be discontinued. Appreciate input by hematology. We will continue to follow. The patient has been on fluconazole since July 16. That will also be discontinued. Brain CT was negative. No active bleeding at this time. We will continue to follow and make recommendations where appropriate. Prognosis is certainly guarded. Currently, the patient is not on any anticoagulant, for the DVT in the right upper extremity. Hematology will be consulted about that. Vascular surgery has also seen the patient. We will continue to follow make recommendations where appropriate. Time with Patient: Greater than 30
[2021-08-01 10:16] LABS: Partial Thromboplastin Time 21.6 sec (22.0-30.0)
[2021-08-01 10:35] LABS: Large Platelets Present
[2021-08-01 11:45] LABS: Glucose,Whole Blood 128 mg/dL (75-99)
--- NOTE | 2021-08-01 12:13 | P.PN ---
Progress Note - Text Progress Note Date: 08/01/21 Trach site is clean. There is no continued bleeding. Patient will continue supportive care.
[2021-08-01] MEDS: ACETAMINOPHEN TAB 325 MG TAB PO PRN (12:26)
[2021-08-01] MEDS ORDERED: POTASSIUM BICARBONATE/CIT AC 20 MEQ TABLET.EFF NG-TUBE SCH (13:00)
--- NOTE | 2021-08-01 13:44 | P.PN ---
Subjective Progress Note Date: 07/31/21 Principal diagnosis: Pneumonia Patient is a 71-year-old female with a past medical history significant for COPD and recent admission to [facility] for pneumonia pr esented to hospital with increasing shortness of breath and cough with a CT suspicious for left lower lobe pneumonia. The patient is status post cystoscopy and left ureteral stent placement completed on 07/16/2021, the patient went into respiratory distress evening of 07/25/2021 and got reintubated, the patient is status post bronchoscopy completed on 07/26/2021, patient is scheduled for a trach and PEG 07/27/2021 On today's evaluation that is 07/31/2021, the patient is afebrile , the patient is hemodynamically stable not requiring any pressor support , the patient FiO2 is stable at 35 %, no further bleeding around the ET and no purulent secretions, patient is tolerating her tube feeds and no diarrhea reported by nursing staff Objective - Vital Signs Vital signs: Vital Signs Temp 98.1 F 07/31/21 08:00 Pulse 82 07/31/21 09:00 Resp 33 H 07/31/21 09:00 BP 120/67 07/31/21 09:00 Pulse Ox 100 07/31/21 09:00 Intake & Output 07/30/21 07/31/21 07/31/21 18:59 06:59 18:59 Intake Total 994 636 181 Output Total 1235 1155 150 Balance -241 -519 31 Weight 80.5 kg 80.5 kg Intake: IV 240 260 40 .9 kvo 240 260 40 Intake, IV Titration 100 Amount Piperacillin-Tazobactam 3 100 .375 gm In Sodium Chloride 0.9% 100 ml @ 25 mls/hr IVPB Q8HR [facility] Rx# :[id number] Tube Feeding 564 376 141 Other 90 Output: Urine 1235 1155 150 Other: Voiding Method Indwelling Catheter Indwelling Catheter ABP, PAP, CO, CI - Last Documented Arterial Blood Pressure 163/56 - Exam GENERAL DESCRIPTION: An elderly female intubated on the vent RESPIRATORY SYSTEM: Unlabored breathing , decreased breath sounds at bases HEART: S1 S2 regular rate and rhythm , ABDOMEN: Soft , no tenderness EXTREMITIES: No edema feet - Labs CBC & Chem 7: 08/01/21 09:40 08/01/21 06:00 Labs: Abnormal Lab Results - Last 24 Hours (Table) 07/30/21 07/30/21 07/31/21 Range/Units 07:13 11:29 05:29 WBC (3.8-10.6) k/uL RBC (3.80-5.40) m/uL Hgb (11.4-16.0) gm/dL Hct (34.0-46.0) % RDW (11.5-15.5) % Plt Count 90 L (150-450) k/uL Sodium (137-145) mmol/L Chloride (98-107) mmol/L BUN (7-17) mg/dL Glucose (74-99) mg/dL POC Glucose (mg/dL) 113 H 112 H (75-99) mg/dL Calcium (8.4-10.2) mg/dL 07/31/21 07/31/21 07/31/21 Range/Units 08:10 08:10 08:19 WBC 12.6 H (3.8-10.6) k/uL RBC 2.73 L (3.80-5.40) m/uL Hgb 8.1 L (11.4-16.0) gm/dL Hct 25.6 L (34.0-46.0) % RDW 18.5 H (11.5-15.5) % Plt Count 74 L (150-450) k/uL Sodium 146 H (137-145) mmol/L Chloride 116 H (98-107) mmol/L BUN 64 H (7-17) mg/dL Glucose 132 H (74-99) mg/dL POC Glucose (mg/dL) 143 H (75-99) mg/dL Calcium 7.3 L (8.4-10.2) mg/dL Assessment and Plan (1) Pneumonia Current Visit: Yes Status: Acute Code(s): J18.9 - PNEUMONIA, UNSPECIFIED ORGANISM SNOMED Code(s): 837753682 Plan: 1patient presented to hospital with acute respiratory failure with in this patient did have hypoxemia increasing shortness of breath and cough with evidence of left lower lobe pneumonia on the CT and recently admitted and treated at [facility] and concerning for a gram-negative pneumonia sputum and bronchial culture were negative , patient did have initial improvement however subsequently did have worsening of respiratory status requiring intubation possible mucus plugging status post bronchoscopy and repeat culture are so far negative, patient is status post trach and PEG, patient did have clinical improvement and continue with Zosyn to finish a course of therapy Time with Patient: Less than 30
--- NOTE | 2021-08-01 13:56 | PN ---
PROGRESS NOTE This 71-year-old white female has had a long hospitalization here, lupus encephalitis, lupus nephritis, pneumonia with Heidi, acute hypoxemic respiratory distress, metabolic encephalopathy, questionable bleed in the brain. Last CT scan yesterday shows no bleed in the brain. Now she has a DVT in her right leg. She is on FiO2 of 30, CPAP 5 and pressure support of 5. She has transitioned back to tracheostomy collar. She is on fluids. Hemoglobin 7.5, white count 9.3, platelets 61,000, potassium 3.8, sodium 144. Creatinine is 0.47. Albumin is 1.9. She has tracheostomy. S1-S2 in the cardiac eval. Coarse rhonchi in the lungs. Saturation 98. PEG tube, trach tube looked at. Skin with no rash. Status post bedside bronchoscopy in 07/31 for left lung collapse, questionable DIC, right upper extremity DVT, septic shock, lupus encephalitis, possible hemorrhagic infarct, not quite sure about that. There is nothing on current CT scan and she has blood clots. Status post pacemaker, hypoxemic respiratory failure, hypertension, dyslipidemia. Hematology is on consult. Hematology is following. I suspect we should start a blood thinner and monitor her at this point. Prognosis is guarded. Please see further orders. MMODL / IJN: [id number] /
[2021-08-01] MEDS: SODIUM CHLORIDE 0.9% 1,000 ML IV SCH (16:14)
[2021-08-01 17:56] LABS: Glucose,Whole Blood 84 mg/dL (75-99)
[2021-08-01 23:43] LABS: Glucose,Whole Blood 114 mg/dL (75-99)
[2021-08-02] MEDS: IPRATROPIUM-ALBUTEROL 3 ML NEB INHALATION SCH ×7 (00:14→23:06)
[2021-08-02 06:00] LABS: Glucose,Whole Blood 289 mg/dL (75-99)
[2021-08-02 06:03] LABS: Glucose,Whole Blood 156 mg/dL (75-99)
[2021-08-02] MEDS: INSULIN DETEMIR (LEVEMIR) 100 UNIT/ML SYR SQ SCH (06:06)
[2021-08-02] MEDS: INSULIN ASPART (NovoLOG) 100 UNIT/ML VIAL SQ SCH ×4 (06:06→23:42)
[2021-08-02] MEDS: METOCLOPRAMIDE 5 MG/ML 2 ML VIAL IVP SCH ×4 (06:07→23:44)
[2021-08-02 06:27] LABS: Anisocytosis Slight; Basophils % (A) 0 %; Eosinophils # (A) 0.1 k/uL (0-0.7); Eosinophils % (A) 1 %; HCT 22.7 % (34.0-46.0); Hypochromasia Marked; Lymphocytes # (A) 0.5 k/uL (1.0-4.8); Lymphocytes % (A) 6 %; MCH 28.4 pg (25.0-35.0); MCHC 29.8 g/dL (31.0-37.0); MCV 95.2 fL (80.0-100.0); Macrocytosis Slight; Mean Platelet Volume 11.9; Monocytes # (A) 0.2 k/uL (0-1.0); Monocytes % (A) 2 %; Neutrophils % (A) 90 %; RBC 2.38 m/uL (3.80-5.40); WBC 8.8 k/uL (3.8-10.6)
[2021-08-02 06:43] LABS: HGB 6.8 gm/dL (11.4-16.0); Platelet Count 48 k/uL (150-450)
[2021-08-02] MEDS: NYSTATIN 100,000 UNIT/ML SUSP 500,000 UNIT/5 ML CUP PO SCH ×4 (07:36→20:36)
[2021-08-02] MEDS: LOSARTAN 50 MG TAB PO SCH (07:36)
[2021-08-02] MEDS: SPIRONOLACTONE 25 MG TAB PO SCH (07:36)
[2021-08-02] MEDS: SODIUM BICARBONATE TAB 650 MG TAB PO SCH (07:36)
[2021-08-02] MEDS: FUROSEMIDE 10 MG/ML 2 ML VIAL IV SCH (07:36)
[2021-08-02] MEDS: ACETAMINOPHEN TAB 325 MG TAB PO PRN (07:45)
[2021-08-02 08:05] LABS: ALT 185 U/L (4-34); AST 156 U/L (14-36); African American GFR (CKD) >90 (>60 ml/min/1.73 sqM); Albumin 1.9 g/dL (3.5-5.0); Alkaline Phosphatase 103 U/L (38-126); Anion Gap 1 mmol/L; Blood Urea Nitrogen 41 mg/dL (7-17); Calcium 7.3 mg/dL (8.4-10.2); Carbon Dioxide 28 mmol/L (22-30); Chloride 112 mmol/L (98-107); Glucose 126 mg/dL (74-99); Magnesium 1.6 mg/dL (1.6-2.3); Non-African American GFR(CKD) >90 (>60 ml/min/1.73 sqM); Sodium 141 mmol/L (137-145); Total Bilirubin 0.9 mg/dL (0.2-1.3); Total Protein 4.3 g/dL (6.3-8.2)
--- NOTE | 2021-08-02 09:25 | P.PN ---
Subjective Patient is seen for follow-up for acute kidney injury. Status post trach and PEG. Patient had bleeding from tracheostomy tube which is now controlled. Maintained on IV Lasix Peak creatinine this admission was 4.57. Patient is currently maintained on D5W at 50 mL an hour. She is also revealing receiving free water down the feeding tube 100 mL every 4 hours. Serum sodium is decreased to 141 today. Hemoglobin 6.8 g/dL today. Urine output 100-1 80 mL an hour. Patient remains with significant edema. Objective - Vital Signs Vital signs: Vital Signs Temp 98.4 F 08/02/21 08:59 Pulse 76 08/02/21 08:59 Resp 31 H 08/02/21 08:59 BP 143/58 08/02/21 08:59 Pulse Ox 99 08/02/21 08:59 Intake & Output 08/01/21 08/02/21 08/02/21 18:59 06:59 18:59 Intake Total 938 1464 50 Output Total 3235 1165 250 Balance -2297 299 -200 Weight 81 kg Intake: IV 750 600 50 D5W 650 600 50 Piperacillin-Tazobactam 3 100 .375 gm In Sodium Chloride 0.9% 100 ml @ 25 mls/hr IVPB Q8HR [facility] Rx# :[id number] Tube Feeding 188 564 Blood Product 0 Rc As-1 Unit 0 [id number] Other 300 Output: Urine 3235 1165 250 Other: Voiding Method Indwelling Catheter Indwelling Catheter Indwelling Catheter ABP, PAP, CO, CI - Last Documented Arterial Blood Pressure 163/56 - Exam Awake, comfortable, on the vent status post trach and PEG tube Patient follows commands. Examination of the heart S1 and S2 Examination lungs bilateral breath sounds are heard Abdomen is soft Examination of lower extremities shows edema 2+ bilaterally - Labs CBC & Chem 7: 08/02/21 06:00 08/02/21 07:35 Labs: Abnormal Lab Results - Last 24 Hours (Table) 08/01/21 08/01/21 08/01/21 Range/Units 06:00 09:40 09:40 RBC 2.59 L (3.80-5.40) m/uL Hgb 7.5 L (11.4-16.0) gm/dL Hct 24.4 L (34.0-46.0) % MCHC 30.9 L (31.0-37.0) g/dL RDW 18.9 H (11.5-15.5) % Plt Count 61 L (150-450) k/uL Neutrophils # 8.7 H (1.3-7.7) k/uL Lymphocytes # 0.3 L (1.0-4.8) k/uL APTT 21.6 L (22.0-30.0) sec Chloride 113 H (98-107) mmol/L BUN 48 H (7-17) mg/dL Creatinine 0.47 L (0.52-1.04) mg/dL Glucose 146 H (74-99) mg/dL POC Glucose (mg/dL) (75-99) mg/dL Calcium 7.3 L (8.4-10.2) mg/dL AST 154 H (14-36) U/L ALT 166 H (4-34) U/L Total Protein 4.4 L (6.3-8.2) g/dL Albumin 1.9 L (3.5-5.0) g/dL Crossmatch 08/01/21 08/01/21 08/02/21 Range/Units 11:43 23:41 05:59 RBC (3.80-5.40) m/uL Hgb (11.4-16.0) gm/dL Hct (34.0-46.0) % MCHC (31.0-37.0) g/dL RDW (11.5-15.5) % Plt Count (150-450) k/uL Neutrophils # (1.3-7.7) k/uL Lymphocytes # (1.0-4.8) k/uL APTT (22.0-30.0) sec Chloride (98-107) mmol/L BUN (7-17) mg/dL Creatinine (0.52-1.04) mg/dL Glucose (74-99) mg/dL POC Glucose (mg/dL) 128 H 114 H 289 H (75-99) mg/dL Calcium (8.4-10.2) mg/dL AST (14-36) U/L ALT (4-34) U/L Total Protein (6.3-8.2) g/dL Albumin (3.5-5.0) g/dL Crossmatch 08/02/21 08/02/2122 Range/Units 06:00 06:02 07:35 RBC 2.38 L (3.80-5.40) m/uL Hgb 6.8 L* (11.4-16.0) gm/dL Hct 22.7 L (34.0-46.0) % MCHC 29.8 L (31.0-37.0) g/dL RDW 19.0 H (11.5-15.5) % Plt Count 48 L (150-450) k/uL Neutrophils # 8.0 H (1.3-7.7) k/uL Lymphocytes # 0.5 L (1.0-4.8) k/uL APTT (22.0-30.0) sec Chloride 112 H (98-107) mmol/L BUN 41 H (7-17) mg/dL Creatinine 0.45 L (0.52-1.04) mg/dL Glucose 126 H (74-99) mg/dL POC Glucose (mg/dL) 156 H (75-99) mg/dL Calcium 7.3 L (8.4-10.2) mg/dL AST 156 H (14-36) U/L ALT 185 H (4-34) U/L Total Protein 4.3 L (6.3-8.2) g/dL Albumin 1.9 L (3.5-5.0) g/dL Crossmatch 08/02/21 Range/Units 07:55 RBC (3.80-5.40) m/uL Hgb (11.4-16.0) gm/dL Hct (34.0-46.0) % MCHC (31.0-37.0) g/dL RDW (11.5-15.5) % Plt Count (150-450) k/uL Neutrophils # (1.3-7.7) k/uL Lymphocytes # (1.0-4.8) k/uL APTT (22.0-30.0) sec Chloride (98-107) mmol/L BUN (7-17) mg/dL Creatinine (0.52-1.04) mg/dL Glucose (74-99) mg/dL POC Glucose (mg/dL) (75-99) mg/dL Calcium (8.4-10.2) mg/dL AST (14-36) U/L ALT (4-34) U/L Total Protein (6.3-8.2) g/dL Albumin (3.5-5.0) g/dL Crossmatch See Detail Microbiology - Last 24 Hours (Table) 07/26/21 08:15 Fungal Culture - Preliminary Bronchoalviolar Lavage - Left Heidi glabrata Assessment and Plan Assessment: 1. Acute kidney injury secondary to ATN from septic shock. Creatinine peaked at 4.57 now down to 0.9 mg/dL. Losartan has been resumed. ANAs positive with low complements. [id number] DNA antibody at 8 which is in the indeterminate range and all other serologies are negative. Free And lambda chains were elevated. Patient does have a history of lupus. She will need a kidney biopsy which can be done later on. Patient also had left ureteral stent placement this admission for obstructive uropathy 2. Disproportionately elevated B UN secondary to steroids currently improved 3. Septic shock from pneumonia status post bronchoscopy currently on the vent maintained on antibiotics 4. Acute hypoxic respiratory failure from pneumonia, currently on the vent. Status post trach and PEG 5. Shock liver currently improved 6. Left-sided hydronephrosis status post left ureteral stent placement on 07/16/2021 7. Hypernatremia associated with free water deficit maintained on D5W and free water down feeding tube 8. History of mitral valve repair Plan: Decrease free water to 60 mL every 4 hours Give additional dose of IV Lasix today Repeat labs in a.m. Consider decreasing D5W depending on the serum sodium tomorrow.
--- NOTE | 2021-08-02 09:53 | P.PN ---
Progress Note - Text Progress Note Date: 08/02/21 Patient remained stable. There is no evidence of bleeding at the tracheostomy site. Patient will continue to receive supportive care.
--- NOTE | 2021-08-02 11:06 | P.PN ---
Subjective Progress Note Date: 08/02/21 Principal diagnosis: Shortness of breath. Pulmonary consult dated 07/10/2021. 69-year-old female, poor historian, who apparently was sent to the emergency department, from [facility] for pneumonia. The patient was recently also at [facility], for a pacemaker procedure. The patient complains of increasing shortness of breath, cough, congestion, and low saturations. She typically uses oxygen at 2 L/m, as needed. She is a heavy smoker in the past. She was admitted with a left lower lobe. She's currently on 6 L nasal cannula. She is not receiving any IV fluids. White count 3.6, hemoglobin 9.9, hematocrit 31.4, and platelet count 199,000. Sodium 141, potassium 4.3, chlorides 108, CO2 20, anion gap 13, BUN 35, and creatinine 1.93. Troponins were 0.[address] showed significant consolidation in the left lung base. Other findings in the other lung contreras were noted. Progress note dated 07/11/2021. 71-year-old female seen yesterday in consultation. She apparently was sent into the emergency department from [facility] for pneumonia. The patient came in complaining of shortness of breath, cough, chest congestion, and low saturations. Last night, right around midnight or so, her respiratory status worsened, and she was transferred to the intensive care unit, and placed on BiPAP. Currently, her BiPAP settings are 12/5 and 70%. She's not receiving any IV fluids. The patient is on Zosyn and azithromycin. Chest x-ray shows significant opacification of the left lung. I recommend significant chest physiotherapy. White count 12.5, hemoglobin 10.1, hematocrit 32.1, and platelet count 248,000. PT was 16 with an INR 1.6. Blood gases show pO2 of 61, pCO2 43, and pH is 7.27. This was apparently on 35% oxygen. Sodium 141, potassium 4, chlorides 112, CO2 21, BUN 42, and creatinine 1.60. Troponin 0.354. Chest x- ray shows extensive consolidation and volume loss in the left hemithorax. Progress note dated 07/12/2021. 71-year-old female again seen in room 254. The patient was admitted with a diagnosis of left-sided pneumonia. The patient developed acute respiratory failure, required transfer to the intensive care unit, and yesterday, was intubated and mechanically ventilated. The patient also had an arterial line placed, a central line placed, and did undergo bronchoscopy. She remains on mechanical ventilator, on volume assist control, rate 24, tidal volume 400, FiO2 60%, and PEEP of 10. Blood gases show a PaO2 of 223, pCO2 of 34, and a pH is 7.16. His blood gases were done on 80%. At that point, I started the patient on a sodium bicarbonate drip, with 2 ampules of sodium bicarbonate and D5W at 100 mL an hour. The patient remains on propofol at 15 mcg/kg/m and norepinephrine at 61 mcg/m. In addition, the patient is getting vital AF at 10 mL an hour. We have asked nephrology to see her. I've also asked for a cortisol level, and for her to be started on vasopressin. She is currently on Zosyn. White count 21.8, hemoglobin 10.4, hematocrit 32.6, platelet count 340,000. PTT is 28.8 with an INR of 2.9. Sodium 143, potassium 4.3, chlorides 117, CO2 13, anion gap 13, BUN 46, and creatinine 2.68. AST is 4763. ALT is 1213. Cortisol level was 55. Chest x-ray shows left greater than right airspace disease, although the findings in the left chest, are improved post intubation. Reevaluated today on 07/24/2021, patient was extubated yesterday, and so far she seems to be tolerating the extubation rather well. She is however on airvo with FiO2 of 70% and flow of 50 L/m., Patient has O2 saturation in the high 90s hence we'll titrate the FiO2 down to 60% or possibly 50% and obtaining an O2 saturation of 93% or better. Patient is hemodynamically stable, not requiring any pressors. She does have a paced rhythm, she is awake, alert, oriented, foll ows simple instructions, however she has a very weak cough. Recommended incentive spirometry at bedside, patient is scheduled to have a PICC line placed today, continues to have a left IJ central line in place today. And has been present since the of last month. Her sodium is elevated, hence the patient is on D5W at 100 mL per hour. Speech therapy to evaluate the patient today and assess his swallow evaluation, if the patient fails may consider Lasix again nasogastric tube for enteral feeding. WBC count today is 24.5 hemoglobin is 10.2. Her sodium is 149. BUN is improving creatinine is significantly improved down to 1.81 today and the patient is having good urine output. Liver enzymes have significantly improved over the last 1 week. Patient remains on Solu- Medrol, and I cut down the dose to 60 mg IV push every 8 hours. She is now off antibiotics as she received full course of treatment for presumptive pneumonia. Reevaluated today on 07/25/2021, patient remains extubated, patient was extubated 2 days ago, so far she seems to be tolerating the extubation well, however the patient remains marginal, she has a very poor cough, and she may be developing worsening left lower lobe atelectasis and consolidation based on the chest x-ray today. Patient is unable to clear secretions with her weak cough. Her chest x- ray continues to show bilateral pneumonia left more so than right, her renal functioning however is improving, and her creatinine is much better today compared to the last few days. Patient is able to follow instructions, remains profoundly weak. Her urine output seems to be excellent, in the last 24 hours, patient had 2420 in and 04/21/2004 out. Hence no plan to give the patient any Lasix at this time. She is in atrial flutter. Patient is hemodynamically stable, not requiring any pressors. She remains on airvo at 55% FiO2 and 50 L flow. O2 saturation is in the mid 90s. Multiple attempts have been made to place an orogastric tube in this patient or a nasogastric tube, and I could not place one even with a glidescope use, and direct visualization of the vocal cords, and for some reason the nasogastric tube goes into the vocal cords every time we have attempted. Could not get it into the area posterior to the vocal cords. At any rate may have to consider a PEG tube placement in this patient comes next week. Sodium remains elevated at 149, patient continues to receive D5W. Reevaluated today on 07/26/2021, patient took a downhill course early this morning around 4 AM, patient developed complete opacification of the left lung and she desaturated down. Picture of the chest x-ray was sent to me early this morning, and I recommended immediate intubation, mechanical ventilation, and I saw this patient this morning continues to have complete opacification of the left lung with ipsilateral deviation of the trachea consistent with mucous plugging of the left mainstem bronchus. Hence we'll write came in this morning, I evaluated the patient, and the first thing I did was to bronchoscope the patient cleared all the mucous plugs from the left mainstem bronchus, and I performed lavage of the left lung until completely cleared. Restarted the patient back on antibiotics to Zosyn, cultures from the BAL are pending. Patient is now again back on mechanical ventilation, and early this morning she was on assist control rate of 24th of volume 400 FiO2 100% and PEEP of 5. ABG shortly after she was intubated showed a pO2 of 77 pCO2 41 pH of 7.39. Patient is on propofol at 30 mcg/kg/m, she is on TPN at 50 mL per hour, but now that we have an orogastric tube in place, patient would have enteral feeding. Her urine output seems to be excellent. Her IV fluid is at D5W at 100 mL per hour. I recommended increasing back her Solu-Medrol, and she is active on Zosyn. I did consult Dr. paniagua as per family's request for tracheostomy evaluation, and he is apparently scheduling the patient for tracheostomy and PEG tube placement tomorrow. WBC count today is 26.5 hemoglobin is 10.5. Basic metabolic profile is normal creatinine is up a bit today up to 1.39. Patient did receive Lasix yesterday. And she had excellent urine output after the Lasix. Presently diuretics are on hold Progress note dated 07/27/2021. 71-year-old female admitted on July 09 for respiratory failure. She came to the intensive care unit on July 11, and was intubated on the same day. She was extubated on July 23, and unfortunately, was reintubated on July 26. He is currently on volume assist control, rate 24, tidal volume 400, FiO2 35%, PEEP of 5. Blood gases show pO2 of 101, pCO2 33, and a pH is 7.48. These blood gases are consistent with normoxemia and a respiratory alkalosis. The patient's getting D5W at 100 mL an hour, propofol at 20 mcg/kg/m, and TPN at 30 mL an hour. The patient will have a tracheostomy and PEG tube placement today. White count 22.6, hemoglobin 8.5, hematocrit 27.3, and platelet count 130,000. Sodium 140, potassium 2.9, chlorides 110, CO2 26, BUN 80, and creatinine 1.19. Albumin is 2.0. Chest x-rays consistent with bilateral airspace disease pleural effusion, left greater than right, and most consistent with fluid overload. Other than Heidi in the bronchial washings, microbiology has been negative. Progress note dated 07/28/2021. 72-year-old female, admitted on July 09 for respiratory failure. She came to the intensive care unit on July 11, and was intubated on the same day. She was extubated on July 23, and was reintubated on July 26. The patient had a tracheostomy and PEG tube placement on July 27. Ventilator settings include volume assist control, rate 24, tidal volume 400, FiO2 35%, and PEEP of 5, to be dropped down to 30%, and PEEP of 5. Blood gases show a PaO2 of 1:15, pCO2 of 31, and a pH is 7.49. Blood gases consistent with respiratory alkalosis. The patient remains on Zosyn and Diflucan. The patient's getting tube feedings with vital 1.2 at 20 mL an hour, with a goal of 33 mL an hour. The patient will have a spontaneous breathing trial today. The patient's getting dextrose at 50 mL an hour, TPN at 30 mL an hour, propofol at 10 mics per kilogram per minute. White count 20.7, hemoglobin 8.6, hematocrit 26.8, platelet count 129,000. Sodium 138, potassium 4.1, chlorides 109, CO2 23, BUN 68, and creatinine 0.96. AST of 66 with an ALT of 104. Albumin is 2. Chest x-ray is essentially unchanged and shows a bilateral interstitial pattern. Progress note dated 07/29/2021. 71-year-old female admitted on July 09 for respiratory failure. She came to the intensive care unit on July 11, and was intubated on the same day. She was extubated on the , and was reintubated on the . She had a tracheostomy and PEG tube placement on 07/27/2021. She remains on the mechanical ventilator. Currently, she is on volume assist control, rate 24, tidal volume 400, FiO2 30%, PEEP of 5. The gases show pO2 104, pCO2 32, and a pH is 7.47. She's getting saline at 20 mL an hour. TPN is been weaned off. She getting vital 1.2 at 33 mL an hour, which is goal. The patient will be placed on pressure support of 5 and CPAP of 5, and it hopefully transitioned to trach collar. White count 20.4, hemoglobin 8.8, hematocrit 28.3, and platelet count is currently pending. Sodium 140, potassium 3.8, chlorides 109, CO2 24, BUN 72, creatinine 1.11. Chest x-ray shows some retrocardiac density and/or infiltrate. Progress note dated 07/30/2021. 71-year-old female admitted back on July 09 for respiratory failure. She came to the intensive care unit on July 11, and was intubated on the same day, extubated on the , and reintubated on the . She underwent tracheostomy and PEG tube placement on 07/27/2021. Yesterday, the patient has some bleeding around the trach site. The surgeon ended up cauterizing the bleeding areas. Currently, she back on volume assist control. Yesterday, before the surgical procedure, she was on trach collar. She's on volume assist control, rate 24, tidal volume 400, FiO2 30%, and PEEP of 5. No blood gases today. The patient remains on Zosyn and Diflucan. The patient's getting saline at 20 mL an hour. In addition, the patient's getting vital AF at 47 mL an hour, which is goal. We will attempt again today to transition the patient from volume assist control, pressure support ventilation, to trach collar. The goal is [facility]. The patient will be started back on her Coumadin. The patient will have a repeat computed tomography scan. Laboratory data includes a white count of 19.5, hemoglobin 8, hematocrit 25.9, and a platelet count which is currently pending. Sodium and potassium normal. Chlorides 112, CO2 24, BUN 72, and creatinine 0 .95., Chest x-rays are unchanged. Progress note dated 07/31/2021. 71-year-old female admitted back on July 09 for respiratory failure. She came to the intensive care unit, 2 days later on July 11, and was intubated on the same day. She was extubated on July 23, and reintubated on 08/05/2021. On 07/27/2021, she underwent tracheostomy and PEG tube placement. She did have some bleeding about the trach site. The site was cauterized, and the sutures that were too tight, moved. Currently, she is on trach collar 35%. Chest x-ray showed a collapse of the left lung. Bronchoscopy was done at the bedside this morning. Repeat chest x-rays pending. During the procedure, she was placed on pressure support and CPAP. She also received 50 g of propofol. Currently, she is on saline at 20 mL an hour, and vital AF at 47 mL an hour, which is goal. White count 12.6, hemoglobin 8.1, hematocrit 25.6, and platelet count 74,000. Sodium 146, potassium 4.2, chlorides 116, CO2 26, anion gap 4, BUN 64, and creatinine 0.76. Progress note dated 08/01/2021. 71-year-old female, admitted back on 07/09/2021, for respiratory failure. She came to the intensive care unit 2 days later, on July 11, and was intubated on the same day. The patient was extubated on July 23, reintubated on July 26, and und erwent tracheostomy and PEG tube placement on 07/27/2021. Recently, she has some bleeding about the trach site. The surgeon cauterized the bleeding site, and remove the sutures. Also, yesterday, she had some additional bleeding, and hematology saw the patient, and thought the patient might have disseminated intravascular coagulation. The patient was found to have a blood clot in the right upper extremity. Currently, she is on pressure support of 5 and CPAP of 5, with an FiO2 of 30%. The patient can be transitioned back to tracheostomy collar. She's getting D5W at 50 mL an hour and vital AF at [address] Brain CT was negative. White count 9.3, hemoglobin 7.5, hematocrit 24.4, and platelet count was 61,000. Sodium 144, potassium 3.8, chlorides 113, CO2 28, E1 48, and creatinine 0.47. Albumin was 1.9. Progress note dated 08/02/2021. 71-year-old female admitted back on 07/09/2021, respiratory failure. She came to the intensive care unit, 2 days later, on July 11, and was intubated on the same day. The patient was extubated on July 23, reintubated on July 26, and underwent tracheostomy and PEG tube placement on 06/27/2021. Recently, she had some bleeding about the trach site. The surgeon cauterized the area. More recently, she was seen by hematology who felt that the patient may have disseminated intravascular coagulation. She was also found have a blood clot in the right upper extremity. Currently, she is on PSV 5, CPAP of 5 in the evening, at 30%, and during the daytime, trach collar at 30%. Yesterday she spent from 8 AM to midnight on trach collar. She's getting D5W at 50 mL an hour. She'll get 1 unit of PRBCs. She is getting vital AF at 47 mL an hour which is goal. White count 8.8, hemoglobin 6.8, hematocrit 22.7, and platelet count 48,000. Sodium 141, potassium 4, chlorides 112, CO2 28, BUN 41, and creatinine 0.45. Albumin is 1.9. AST 156. ALT is 185. No chest x-ray today. Objective - Vital Signs Vital signs: Vital Signs Temp 98.2 F 08/02/21 10:30 Pulse 82 08/02/21 10:30 Resp 30 H 08/02/21 10:30 BP 136/66 08/02/21 10:30 Pulse Ox 98 08/02/21 10:30 Intake & Output 08/01/21 08/02/21 08/02/21 18:59 06:59 18:59 Intake Total 938 1464 510 Output Total 3235 1165 1000 Balance -2297 299 -490 Weight 81 kg Intake: IV 750 600 50 D5W 650 600 50 Piperacillin-Tazobactam 3 100 .375 gm In Sodium Chloride 0.9% 100 ml @ 25 mls/hr IVPB Q8HR [facility] Rx# :[id number] Intake, IV Titration 150 Amount Dextrose 5% in Water 1, 150 000 ml @ 50 mls/hr IV . Q20H [facility] Rx#:[id number] Tube Feeding 188 564 Blood Product 310 Rc As-1 Unit 310 [id number] Other 300 Output: Urine 3235 1165 1000 Other: Voiding Method Indwelling Catheter Indwelling Catheter Indwelling Catheter ABP, PAP, CO, CI - Last Documented Arterial Blood Pressure 163/56 - Exam Currently on pressure support and CPAP, at 30%. Midline tracheostomy tube noted. HEENT examination is grossly unremarkable. Dried blood is noted at the corner of the mouth, and on the tongue. Neck supple. Full range of motion. No adenopathy thyromegaly or neck vein distention. Cardiovascular examination reveals regular rhythm rate. S1-S2 normal. No S3 or S4. No discernible murmur noted. Heart sounds are very distant. Heart rate 82 bpm. Lungs reveal coarse bilateral rhonchi. Basilar crackles are appreciated. No wheezes. Breath sounds are equal bilaterally. Saturations are 98%. Abdomen soft bowel sounds are not heard. No masses or tenderness. PEG tube noted. Extremities are intact. No cyanosis clubbing or edema. Skin is without rash or lesion. Neurologic examination is stable. Patient is very lethargic and somnolent. - Labs CBC & Chem 7: 08/02/21 06:00 08/02/21 07:35 Labs: Abnormal Lab Results - Last 24 Hours (Table) 08/01/21 08/01/21 08/02/21 Range/Units 11:43 23:41 05:59 RBC (3.80-5.40) m/uL Hgb (11.4-16.0) gm/dL Hct (34.0-46.0) % MCHC (31.0-37.0) g/dL RDW (11.5-15.5) % Plt Count (150-450) k/uL Neutrophils # (1.3-7.7) k/uL Lymphocytes # (1.0-4.8) k/uL Chloride (98-107) mmol/L BUN (7-17) mg/dL Creatinine (0.52-1.04) mg/dL Glucose (74-99) mg/dL POC Glucose (mg/dL) 128 H 114 H 289 H (75-99) mg/dL Calcium (8.4-10.2) mg/dL AST (14-36) U/L ALT (4-34) U/L Total Protein (6.3-8.2) g/dL Albumin (3.5-5.0) g/dL Crossmatch 08/02/21 08/02/21 08/02/21 Range/Units 06:00 06:02 07:35 RBC 2.38 L (3.80-5.40) m/uL Hgb 6.8 L* (11.4-16.0) gm/dL Hct 22.7 L (34.0-46.0) % MCHC 29.8 L (31.0-37.0) g/dL RDW 19.0 H (11.5-15.5) % Plt Count 48 L (150-450) k/uL Neutrophils # 8.0 H (1.3-7.7) k/uL Lymphocytes # 0.5 L (1.0-4.8) k/uL Chloride 112 H (98-107) mmol/L BUN 41 H (7-17) mg/dL Creatinine 0.45 L (0.52-1.04) mg/dL Glucose 126 H (74-99) mg/dL POC Glucose (mg/dL) 156 H (75-99) mg/dL Calcium 7.3 L (8.4-10.2) mg/dL AST 156 H (14-36) U/L ALT 185 H (4-34) U/L Total Protein 4.3 L (6.3-8.2) g/dL Albumin 1.9 L (3.5-5.0) g/dL Crossmatch 08/02/21 Range/Units 07:55 RBC (3.80-5.40) m/uL Hgb (11.4-16.0) gm/dL Hct (34.0-46.0) % MCHC (31.0-37.0) g/dL RDW (11.5-15.5) % Plt Count (150-450) k/uL Neutrophils # (1.3-7.7) k/uL Lymphocytes # (1.0-4.8) k/uL Chloride (98-107) mmol/L BUN (7-17) mg/dL Creatinine (0.52-1.04) mg/dL Glucose (74-99) mg/dL POC Glucose (mg/dL) (75-99) mg/dL Calcium (8.4-10.2) mg/dL AST (14-36) U/L ALT (4-34) U/L Total Protein (6.3-8.2) g/dL Albumin (3.5-5.0) g/dL Crossmatch See Detail Microbiology - Last 24 Hours (Table) 07/26/21 08:15 Fungal Culture - Preliminary Bronchoalviolar Lavage - Left Heidi glabrata Assessment and Plan Assessment: Acute hypoxemic respiratory failure secondary to left lower lobe pneumonia, status post intubation and mechanical ventilation as well as bronchoscopy on 07/11/2021, extubation on 07/23/2021, and reintubation on 07/26/2021. S/P bedside bronchoscopy, 07/31/2021, for left lung collapse. Questionable disseminated intravascular coagulation (DIC). Right upper extremity DVT. Septic shock, with multiorgan system failure. 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 S/P tracheostomy and PEG tube placement, 07/27/2021. CAD, status post bypass grafting. Acute hypoxemic respiratory failure secondary to pneumonia and COPD. History of COPD from previous significant tobacco use. History of hypertension. History of hyperlipidemia. Status post pacemaker implantation. Vague history of CHF. Plan: Plan dated 07/10/2021. Currently, the patient's on azithromycin and Zosyn. The patient is also getting any treatments with albuterol sulfate and ipratropium bromide. We will continue to follow make recommendations were appropriate. Prognosis is certainly guarded. The CAT scan, x-rays, and medications are all reviewed. The patient should have outpatient evaluation of her chronic lung disease once she is better and is discharged. Infectious disease should see this patient. Plan dated 07/11/2021. The patient was transferred to the intensive care unit for further monitoring and management. She was transferred sometime after midnight. She remains on BiPAP. Saturations are reasonable. Chest x-ray shows near complete opacification of the left lung. We recommend the right lung to be down, and significant chest physiotherapy to the left lung. Additional recommendations and suggestions are forthcoming. Labs, x-rays, and medications are reviewed. We'll continue to follow. Plan dated 07/12/2021. The patient was intubated and mechanically ventilated yesterday, 07/11/2021. In addition, an arterial line was placed, as well as a central line, and the patient underwent bronchoscopy. Currently everything is pending. The patient remains on the mechanical ventilator. She is on propofol at 15 mcg/kg/m, and norepinephrine at 61 mcg/m. I'm going to add vasopressin to her regimen. Will have nephrology see her for her worsening renal function and poor urine output. Cortisol level was adequate. She remains on Zosyn as per infectious diseases. I did have a very long conversation with her daughter. I explained to the daughter that we are giving her best supportive care. The patient remains a full code at this time. Plan dated 07/27/2021. The patient will undergo tracheostomy and PEG tube placement today. Was started on enteral nutrition. Blood gases show a respiratory alkalosis. No ventilator changes. We'll make sure the patient's on DuoNeb every 4 hours [id number]. Continue GI and DVT prophylaxis. Zosyn was started empirically. No additional recommendations are made. Prognosis is guarded. The patient remains on fluconazole. Labs, x-rays, and medications are all reviewed. Prognosis is guarded. We'll continue to follow the patient and make recommendations where appropriate. Plan dated 07/28/2021. The patient did have her PEG tube placement and tracheostomy performed yesterday. She continues on Zosyn and Diflucan. The patient is getting tube feedings with vital 1.2 at 20 mL an hour, with a goal of 33 mL an hour. The TPN will be stopped later today. Later today, the patient can have a daily interruption of sedation and a spontaneous breathing trial. Labs, x-rays, and medications are all reviewed. We will continue to follow the patient and make recommendations where appropriate. The patient's overall prognosis is very guarded. Plan dated 07/29/2021. Currently, the patient is on the volume assist control mode. Yesterday, she spent about 4 hours on pressure support. Today, we'll place her on pressure support again, and transition her to a trach collar. Labs, x-rays, and medications are all reviewed. The most recent computed tomography scan shows almost complete resolution of the previously seen hyperdense focus in the right parietal lobe. The patient remains on Zosyn. Additional recommendations sugges tions are forthcoming. Solu-Medrol is discontinued. We will continue to follow the patient and make recommendations where appropriate. Prognosis is certainly guarded. Plan dated 07/30/2021. The patient will again be transitioned back to trach collar. Yesterday, the patient had some bleeding about the trach site. The bleeding areas were cauterized by the surgeon. The patient is currently on the ventilator. She remains on antibiotics. The hope is to get her discharged tomorrow to [facility]. The patient's Coumadin will be restarted. A repeat computed tomography scan of the brain will be ordered. No additional recommendations are made. Her prognosis is certainly guarded. The abnormal bleeding areas the parietal lobe on the right side, has improved. We will continue to follow make recommendations where appropriate. Prognosis is certainly guarded. Plan dated 07/31/2021. We are hoping the patient can be sent to select specialty. The patient had left lung collapse today on chest x-ray, and we did bedside bronchoscopy. No samples were sent to the laboratory. The patient will need D5W at 50 mL an hour. Saline is discontinued. Coumadin is restarted. Labs, x-rays, and medications are reviewed and is receiving tube feedings at goal. Prognosis is guarded. We'll continue to follow and make recommendations where appropriate. A repeat chest x-ray is done 1 hour after procedure. Plan dated 08/01/2021. The patient's Zosyn can be discontinued. Appreciate input by hematology. We will continue to follow. The patient has been on fluconazole since July 16. That will also be discontinued. Brain CT was negative. No active bleeding at this time. We will continue to follow and make recommendations where appropriate. Prognosis is certainly guarded. Currently, the patient is not on any anticoagulant, for the DVT in the right upper extremity. Hematology will be consulted about that. Vascular surgery has also seen the patient. We will continue to follow make recommendations where appropriate. Plan dated 08/02/2021. The patient will get 1 unit of blood for a hemoglobin of 6.8. The patient remains on trach collar during the daytime, at 30%. Labs, x-rays, and medications are all reviewed. The patient does have a right upper extremity DVT. We will continue to follow make recommendations where appropriate. Prognosis is certainly guarded. Labs, and x-rays will be done in the morning. No additional recommendations are made at this time. Time with Patient: Greater than 30
[2021-08-02] MEDS: MAGNESIUM SULFATE-D5W PMX 1 GM in DEXTROSE/WATER 1 100ML.BAG IVPB SCH ×2 (11:39→14:17)
[2021-08-02 11:51] LABS: Anisocytosis Slight; HCT 27.5 % (34.0-46.0); Hypochromasia Slight; MCH 29.3 pg (25.0-35.0); MCHC 31.3 g/dL (31.0-37.0); MCV 93.6 fL (80.0-100.0); Mean Platelet Volume 12.8; RBC 2.94 m/uL (3.80-5.40); RDW 17.7 % (11.5-15.5); WBC 9.3 k/uL (3.8-10.6)
[2021-08-02 11:59] LABS: HGB 8.6 gm/dL (11.4-16.0); Platelet Count 50 k/uL (150-450)
[2021-08-02 12:20] LABS: Glucose,Whole Blood 106 mg/dL (75-99)
--- NOTE | 2021-08-02 13:05 | PN ---
PROGRESS NOTE This patient's hemoglobin dropped overnight down to 6.8. She was given a unit of blood. Most likely this will rule out use of blood thinner at this point, although family kind of wanted to start one. It was 6.8; now it is up to 8.6. Platelet count is maintaining 48 up to 50. BUN is 41, creatinine 0.45. Sugars are mid 200s to 100s. saturations 100%. Blood pressure 136/59, pulse 78 to 90, respiratory rate 22 to 30. One unit of blood was given today. Wait for Hematology's recommendations on blood thinners, but due to drop in hemoglobin, we most likely will not be able to start one. She has acute DVT in her right upper extremity. She is resting comfortably on vent. Cardiovascular S1, S2. Lungs have trach sounds. GI soft. Hematology negative Homans. She is status post hypoxemic respiratory failure with trach and PEG, status post left lower lobe pneumonia as well as acute lupus nephritis, lupus encephalitis, right upper extremity DVT, possible DIC, possible acute hemorrhagic infarct, now disappeared on CT scan, COPD, hypertension, dyslipidemia, pacemaker. Kidney function is greatly improved. She had one unit of blood. She is on a trach collar. Prognosis is certainly guarded. No additional recommendations. We are going to wait on blood thinner per Hematology, but suspect due to losing blood even though her platelets are above 50, probably will not use a blood thinner at this point, as she keeps dropping her blood counts. Prognosis is guarded. MMODL / IJN: [id number] /
[2021-08-02] MEDS ORDERED: FUROSEMIDE 10 MG/ML 2 ML VIAL IV ONE (15:00)
[2021-08-02] MEDS: SODIUM CHLORIDE 0.9% 1,000 ML IV SCH (16:08)
[2021-08-02 17:20] LABS: Glucose,Whole Blood 105 mg/dL (75-99)
[2021-08-02] MEDS ORDERED: IPRATROPIUM-ALBUTEROL 3 ML NEB INHALATION PRN (23:07)
[2021-08-02 23:41] LABS: Glucose,Whole Blood 129 mg/dL (75-99)
[2021-08-02] MEDS: DEXTROSE 5% IN WATER 1,000 ML IV SCH (23:41)
[2021-08-03] MEDS ORDERED: POTASSIUM BICARBONATE/CIT AC 20 MEQ TABLET.EFF NG-TUBE SCH
--- NOTE | 2021-08-03 03:03 | XR ---
EXAMINATION TYPE: XR chest 1V portable DATE OF EXAM: 08/03/2021 COMPARISON: 07/31/2021 HISTORY: Vertebra TECHNIQUE: FINDINGS: Heart is shifted to the left side. There is infiltrate and atelectasis in the left lung. Th ere is tracheostomy tube. There is consolidation and atelectasis left lung field. Right lung is relat ively clear. No obvious heart failure. There are sternal wires. There are chest leads. IMPRESSION: There is infiltrate and atelectasis in the left lung similar to recent exam. No obvious h eart failure.
[2021-08-03 05:13] LABS: Glucose,Whole Blood 123 mg/dL (75-99)
[2021-08-03] MEDS: METOCLOPRAMIDE 5 MG/ML 2 ML VIAL IVP SCH ×2 (05:19→11:58)
[2021-08-03] MEDS: INSULIN ASPART (NovoLOG) 100 UNIT/ML VIAL SQ SCH ×2 (05:20→11:58)
[2021-08-03 05:23] LABS: Anisocytosis Slight; Basophils % (A) 0 %; Eosinophils # (A) 0.1 k/uL (0-0.7); Eosinophils % (A) 2 %; HCT 26.6 % (34.0-46.0); HGB 8.4 gm/dL (11.4-16.0); Hypochromasia Slight; Lymphocytes # (A) 0.5 k/uL (1.0-4.8); Lymphocytes % (A) 7 %; MCH 29.1 pg (25.0-35.0); MCHC 31.5 g/dL (31.0-37.0); MCV 92.4 fL (80.0-100.0); Mean Platelet Volume 11.5; Monocytes # (A) 0.2 k/uL (0-1.0); Monocytes % (A) 2 %; Neutrophils # (A) 6.7 k/uL (1.3-7.7); Neutrophils % (A) 88 %; RBC 2.88 m/uL (3.80-5.40); RDW 17.5 % (11.5-15.5); WBC 7.6 k/uL (3.8-10.6)
[2021-08-03 05:30] LABS: Platelet Count 44 k/uL (150-450)
[2021-08-03 05:34] LABS: ALT 171 U/L (4-34); AST 127 U/L (14-36); African American GFR (CKD) >90 (>60 ml/min/1.73 sqM); Albumin 1.8 g/dL (3.5-5.0); Alkaline Phosphatase 116 U/L (38-126); Anion Gap 0 mmol/L; Blood Urea Nitrogen 44 mg/dL (7-17); Carbon Dioxide 28 mmol/L (22-30); Chloride 107 mmol/L (98-107); Glucose 121 mg/dL (74-99); Magnesium 1.9 mg/dL (1.6-2.3); Non-African American GFR(CKD) >90 (>60 ml/min/1.73 sqM); Potassium 4.1 mmol/L (3.5-5.1); Sodium 135 mmol/L (137-145); Total Bilirubin 0.9 mg/dL (0.2-1.3); Total Protein 4.1 g/dL (6.3-8.2)
[2021-08-03] MEDS: INSULIN DETEMIR (LEVEMIR) 100 UNIT/ML SYR SQ SCH (06:16)
--- NOTE | 2021-08-03 06:23 | XR ---
EXAMINATION TYPE: XR chest 1V portable DATE OF EXAM: 08/03/2021 CLINICAL HISTORY: Difficulty breathing progress study. TECHNIQUE: Single AP portable semiupright view of the chest is obtained. COMPARISON: Chest x-ray from earlier today and older studies FINDINGS: Stable tracheostomy tube. Stable right-sided subclavian central venous catheter. Chronic parenchymal changes bilaterally with diffuse left lung opacity redemonstrated. Cardiac silhou ette size is stable and mildly enlarged with single lead pacemaker. Overlying sternal wires along wit h cardiac valvular surgical changes at 2 levels redemonstrated. Old fractures posterior right mid rib s again seen. IMPRESSION: Chronic changes and mild cardiomegaly with diffuse left lung edema and/or infiltrates are all redemonstrated. No significant change from earlier today.
[2021-08-03] MEDS: IPRATROPIUM-ALBUTEROL 3 ML NEB INHALATION SCH ×3 (07:19→16:43)
[2021-08-03] MEDS: SPIRONOLACTONE 25 MG TAB PO SCH (08:59)
[2021-08-03] MEDS: SODIUM BICARBONATE TAB 650 MG TAB PO SCH (08:59)
[2021-08-03] MEDS: NYSTATIN 100,000 UNIT/ML SUSP 500,000 UNIT/5 ML CUP PO SCH ×2 (09:00→11:58)
[2021-08-03] MEDS: FUROSEMIDE 10 MG/ML 2 ML VIAL IV SCH (09:09)
[2021-08-03] MEDS: LOSARTAN 50 MG TAB PO SCH (09:33)
[2021-08-03] MEDS ORDERED: FUROSEMIDE 10 MG/ML 2 ML VIAL IV ONE (10:00)
[2021-08-03 10:41] VITALS: BMI 31.6
[2021-08-03 10:42] LABS: Prothrombin Time 10.6 sec (9.0-12.0)
--- NOTE | 2021-08-03 10:52 | P.PN ---
Subjective Progress Note Date: 08/03/21 Principal diagnosis: resp failure No obvious signs of DIC as coags and fibrinogen and CBC are stable, overall bleeding and mental status improving. Patient seen this am, discussed with nursing and planning on discharge to select specialty today. Objective - Vital Signs Vital signs: Vital Signs Temp 100.0 F H 08/03/21 08:00 Pulse 81 08/03/21 10:00 Resp 28 H 08/03/21 10:00 BP 113/60 08/03/21 10:00 Pulse Ox 98 08/03/21 10:00 Intake & Output 08/02/21 08/03/21 08/03/21 18:59 06:59 18:59 Intake Total 1054 1381 254 Output Total 2460 935 150 Balance -1406 446 104 Weight 81.1 kg 81.1 kg Intake: IV 500 600 100 D5W 500 600 100 Intake, IV Titration 150 Amount Dextrose 5% in Water 1, 150 000 ml @ 50 mls/hr IV . Q20H [facility] Rx#:[id number] Tube Feeding 94 611 94 Blood Product 310 Rc As-1 Unit 310 [id number] Other 170 60 Output: Urine 2460 935 150 Other: Voiding Method Indwelling Catheter Indwelling Catheter # Bowel Movements 1 1 ABP, PAP, CO, CI - Last Documented Arterial Blood Pressure 163/56 - Exam - Constitutional General appearance: average body habitus, cooperative, no acute distress - EENT dry scan blood trach and oral mucosa Patient has blood around the corners of her mouth. nose bleeding Eyes: anicteric sclerae, EOMI ENT: hearing grossly normal - Neck Neck: no lymphadenopathy - Respiratory Respiratory: bilateral: diminished - Cardiovascular Rhythm: irregular Heart sounds: normal: S1, S2 Peripheral Edema: bilateral: 1+, Left Arm Swelling - Musculoskeletal Musculoskeletal: generalized weakness - Psychiatric Patient is more alert today - Labs CBC & Chem 7: 08/03/21 05:13 08/03/21 05:13 Labs: Abnormal Lab Results - Last 24 Hours (Table) 08/02/21 08/02/21 08/02/21 Range/Units 07:55 11:48 12:19 RBC 2.94 L (3.80-5.40) m/uL Hgb 8.6 L D (11.4-16.0) gm/dL Hct 27.5 L (34.0-46.0) % RDW 17.7 H (11.5-15.5) % Plt Count 50 L (150-450) k/uL Lymphocytes # (1.0-4.8) k/uL Sodium (137-145) mmol/L BUN (7-17) mg/dL Creatinine (0.52-1.04) mg/dL Glucose (74-99) mg/dL POC Glucose (mg/dL) 106 H (75-99) mg/dL Calcium (8.4-10.2) mg/dL AST (14-36) U/L ALT (4-34) U/L Total Protein (6.3-8.2) g/dL Albumin (3.5-5.0) g/dL Crossmatch See Detail 08/02/21 08/02/21 08/03/21 Range/Units 17:19 23:40 05:12 RBC (3.80-5.40) m/uL Hgb (11.4-16.0) gm/dL Hct (34.0-46.0) % RDW (11.5-15.5) % Plt Count (150-450) k/uL Lymphocytes # (1.0-4.8) k/uL Sodium (137-145) mmol/L BUN (7-17) mg/dL Creatinine (0.52-1.04) mg/dL Glucose (74-99) mg/dL POC Glucose (mg/dL) 105 H 129 H 123 H (75-99) mg/dL Calcium (8.4-10.2) mg/dL AST (14-36) U/L ALT (4-34) U/L Total Protein (6.3-8.2) g/dL Albumin (3.5-5.0) g/dL Crossmatch 08/03/21 08/03/21 Range/Units 05:13 05:13 RBC 2.88 L (3.80-5.40) m/uL Hgb 8.4 L (11.4-16.0) gm/dL Hct 26.6 L (34.0-46.0) % RDW 17.5 H (11.5-15.5) % Plt Count 44 L (150-450) k/uL Lymphocytes # 0.5 L (1.0-4.8) k/uL Sodium 135 L (137-145) mmol/L BUN 44 H (7-17) mg/dL Creatinine 0.35 L (0.52-1.04) mg/dL Glucose 121 H (74-99) mg/dL POC Glucose (mg/dL) (75-99) mg/dL Calcium 7.0 L (8.4-10.2) mg/dL AST 127 H (14-36) U/L ALT 171 H (4-34) U/L Total Protein 4.1 L (6.3-8.2) g/dL Albumin 1.8 L (3.5-5.0) g/dL Crossmatch Assessment and Plan Plan: Chest x-ray: report reviewed Assessment and Plan (1) Coagulopathy (2) Thrombocytopenia Current Visit: Yes Status: Acute Priority: Medium Code(s): D68.9 - COAGULATION DEFECT, UNSPECIFIED SNOMED Code(s): 62665552 Plan: Resume ac therapy when platelets recover and no active bleeding. No evidence of DIC at this time appears to be recovering and improving, no active bleeding and stable CBC and Coags, plan to move to select specialty per nursing today. Doctor attests: I performed a history and physical examination of this patient, developed impression and plan of care. Discussed with dictator. I agree with dictators note, documented as a scribe.
--- NOTE | 2021-08-03 11:06 | P.PN ---
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 On today's evaluation, the patient is on no sedation. She is opening her eyes and she is following simple commands. She is profoundly weak and she is barely able to move her toes and her fingers in her upper extremities. She is blinking. She is opening her eyes. He is following simple commands. No seizure activity has been noted for now. The patient remains on a mechanical ventilator. On today's evaluation, she is an assist-control mode with a rate of 24 with a tidal volume of 400 and a PEEP of 6 with an FiO2 of 30%. The chest x-ray is still showing extensive consolidation of the left lung. Nevertheless, the patient continues to have stable oxygenation and a blood gas today shows a pH of 7.46 with a pCO2 of 35 and a pO2 of 87. The bronchoscopy and bronchial lavage and the second occasion showed Heidi. The patient remains on Diflucan. Meanwhile, there is concern for lupus pneumonitis and questionable encephalitis picture. The patient remains on high dose IV Solu Medrol 125 mg every 6 hours. This may have contributed to her improved mentation. Renal function continues to be impaired at stable. On today's blood work, sodium is at 147 with a potassium level of 3.8, BUN is at 120 with a creatinine of 4.3 and a serum bicarb of 21. Overall fluid balance over the past 24 hours is +2.5 L. The patient's LFTs are improving, AST 60, ALT is 319, and there is a downgoing trend on the LFTs. The white cell count of 15.7 with a hemoglobin of 8.4 and a platelet count of 108. Platelet counts are stable for now. The patient is on vital AF at the rate of 57 mL an hour which is currently at goal. Doppler of the lower extremity was done and the results were negative. The patient is on no anticoagulants for now. Also, antiphospholipid and anti-cardiolipin antibodies were sent and the results are still pending for now. Nephrology is on the case for now. Patient was reevaluated today on 07/20/21, remains in the ICU, intubated and mechanically ventilated. She is presently on assist control rate of 24, volume 400 FiO2 30% PEEP 5 ABG showed a pO2 of 76 pCO2 34 pH of 7.43. Hence no changes were made in her present ventilator settings. Patient is on IV fluid she was on D5W at 75 mL/h, now she is on 0.9 normal saline at 20 mL per hour. She is receiving enteral tube feeding, remains on relatively high-dose of steroids/Solu-Medrol for presumptive lupus encephalitis and lupus pneumonitis. Patient is not requiring any sedation, her chest x-ray continues to show multifocal pneumonia bilaterally left more so than right, patient is opening eyes, following very simple instructions, and this is a new finding implying improved mental status. However the patient is generally weak, and I don't believe she is ready for any weaning trials at this point. But we'll continue the same ventilatory support, we'll continue nutritional support, continue steroids and antibiotics empirically, although I am mostly suspecting lupus pneumonitis rather than bacterial pneumonia. WBC count today is 20.7 hemoglobin is 9 ABG as noted earlier. Renal functioning is poor with a BUN of 129 creatinine 3.93. Improving compared to the last few days. Patient remains on Zosyn, and she also remains on methylprednisolone 125 mg IV push every 6 hours. She is on insulin she is also on Diflucan. Reevaluated today on 07/23/2021, patient remains in the ICU, intubated and mechanically ventilated. Patient was initially intubated on 07/11, and yesterday she was given a trial of weaning with a pressure support of 12 and CPAP, however the patient had a very poor weaning parameters mostly a nif -12 only. Hence decided not to extubate the patient as she would likely have very weak cough, and will not be able to clear secretions on her own. She is now on assist control rate of 24th of 1 400 FiO2 30% PEEP of 5. ABG showed a pO2 of 78 pCO2 of 35 pH of 7.46, hence no ventilator settings changes were made. Patient is receiving enteral feeding vital AF at 57 mL per hour. Today I have a feeling that the patient will be very difficult to wean and extubate successfully, hence I'm recommending a surgical evaluation for possible tracheostomy, PEG tube placement, and she will also eventually need a PICC line placement. This will be addressed hopefully today. In the meantime I recommended that she goes back on pressure support of 12 and CPAP. And will continue to check her weaning para meters again today hopefully the patient would have a better negative inspiratory force. Chest x-ray continues to show significant infiltrate in the left lung less infiltrate in the right lung. WBC count is 21 hemoglobin 9.3. INR is 1.3. Asymptomatic metabolic profile is normal BUN is improving creatinine is improving down to 2.35. Liver profile is also improving. Reevaluated today on 07/24/2021, patient was extubated yesterday, and so far she seems to be tolerating the extubation rather well. She is however on airvo with FiO2 of 70% and flow of 50 L/m., Patient has O2 saturation in the high 90s hence we'll titrate the FiO2 down to 60% or possibly 50% and obtaining an O2 saturation of 93% or better. Patient is hemodynamically stable, not requiring any pressors. She does have a paced rhythm, she is awake, alert, oriented, follows simple instructions, however she has a very weak cough. Recommended incentive spirometry at bedside, patient is scheduled to have a PICC line placed today, continues to have a left IJ central line in place today. And has been present since the of last month. Her sodium is elevated, hence the patient is on D5W at 100 mL per hour. Speech therapy to evaluate the patient today and assess his swallow evaluation, if the patient fails may consider Lasix again nasogastric tube for enteral feeding. WBC count today is 24.5 hemoglobin is 10.2. Her sodium is 149. BUN is improving creatinine is significantly improved down to 1.81 today and the patient is having good urine output. Liver enzymes have significantly improved over the last 1 week. Patient remains on Solu- Medrol, and I cut down the dose to 60 mg IV push every 8 hours. She is now off antibiotics as she received full course of treatment for presumptive pneumonia. Reevaluated today on 07/25/2021, patient remains extubated, patient was extubated 2 days ago, so far she seems to be tolerating the extubation well, however the patient remains marginal, she has a very poor cough, and she may be developing worsening left lower lobe atelectasis and consolidation based on the chest x-ray today. Patient is unable to clear secretions with her weak cough. Her chest x- ray continues to show bilateral pneumonia left more so than right, her renal functioning however is improving, and her creatinine is much better today compared to the last few days. Patient is able to follow instructions, remains profoundly weak. Her urine output seems to be excellent, in the last 24 hours, patient had 2420 in and 04/21/2004 out. Hence no plan to give the patient any Lasix at this time. She is in atrial flutter. Patient is hemodynamically stable, not requiring any pressors. She remains on airvo at 55% FiO2 and 50 L flow. O2 saturation is in the mid 90s. Multiple attempts have been made to place an orogastric tube in this patient or a nasogastric tube, and I could not place one even with a glidescope use, and direct visualization of the vocal cords, and for some reason the nasogastric tube goes into the vocal cords every time we have attempted. Could not get it into the area posterior to the vocal cords. At any rate may have to consider a PEG tube placement in this patient comes next week. Sodium remains elevated at 149, patient continues to receive D5W. Reevaluated today on 07/26/2021, patient took a downhill course early this morning around 4 AM, patient developed complete opacification of the left lung and she desaturated down. Picture of the chest x-ray was sent to me early this morning, and I recommended immediate intubation, mechanical ventilation, and I saw this patient this morning continues to have complete opacification of the left lung with ipsilateral deviation of the trachea consistent with mucous plugging of the left mainstem bronchus. Hence we'll write came in this morning, I evaluated the patient, and the first thing I did was to bronchoscope the patient cleared all the mucous plugs from the left mainstem bronchus, and I performed lavage of the left lung until completely cleared. Restarted the patient back on antibiotics to [facility], cultures from the BAL are pending. Patient is now again back on mechanical ventilation, and early this morning she was on assist control rate of 24th of volume 400 FiO2 100% and PEEP of 5. ABG shortly after she was intubated showed a pO2 of 77 pCO2 41 pH of 7.39. Patient is on propofol at 30 mcg/kg/m, she is on TPN at 50 mL per hour, but now that we have an orogastric tube in place, patient would have enteral feeding. Her urine output seems to be excellent. Her IV fluid is at D5W at 100 mL per hour. I recommended increasing back her Solu-Medrol, and she is active on Zosyn. I did consult Dr. paniagua as per family's request for tracheostomy evaluation, and he is apparently scheduling the patient for tracheostomy and PEG tube placement tomorrow. WBC count today is 26.5 hemoglobin is 10.5. Basic metabolic profile is normal creatinine is up a bit today up to 1.39. Patient did receive Lasix yesterday. And she had excellent urine output after the Lasix. Presently diuretics are on hold Progress note dated 08/02/2021. 71-year-old female admitted back on 07/09/2021, respiratory failure. She came to the intensive care unit, 2 days later, on July 11, and was intubated on the same day. The patient was extubated on July 23, reintubated on July 26, and underwent tracheostomy and PEG tube placement on 06/27/2021. Recently, she had some bleeding about the trach site. The surgeon cauterized the area. More recently, she was seen by hematology who felt that the patient may have disseminated intravascular coagulation. She was also found have a blood clot in the right upper extremity. Currently, she is on PSV 5, CPAP of 5 in the evening, at 30%, and during the daytime, trach collar at 30%. Yesterday she spent from 8 AM to midnight on trach collar. She's getting D5W at 50 mL an bay r. She'll get 1 unit of PRBCs. She is getting vital AF at 47 mL an hour which is goal. White count 8.8, hemoglobin 6.8, hematocrit 22.7, and platelet count 48,000. Sodium 141, potassium 4, chlorides 112, CO2 28, BUN 41, and creatinine 0.45. Albumin is 1.9. AST 156. ALT is 185. No chest x-ray today. Reevaluated today on 08/03/2021, patient remains in the ICU, intubated, mechanically ventilated, she was on trach collar yesterday, and at night she had to be placed back on assist control mode of mechanical ventilation and remains so patient is on assist control rate of 24, 400 FiO2 30% PEEP of 5. Her IV fluid to D5W running at 50 mL per hour. Patient has a paced rhythm at 76 bpm. She is arousable, follows simple instructions, but seems to be generally weak, apparently yesterday she was on trach collar for 16 hours. But last night she was noted to be tachypneic, had to be placed back on assist control mode of mechanical ventilation. Chest x-ray continues to show extensive infiltrate in the left lung, however these are most likely postinflammatory changes, patient received antibiotics all along since she was admitted. Patient is being considered for transfer to [facility]. And I think that is reasonable. Patient will need a long course of rehabilitation. And hopefully the patient could be sent today. Decision was made about her anticoagulation therapy as not to place the patient on any anticoagulation for now. The risk of anticoagulation outweigh the benefits. WBC count today is 7.6 hemoglobin is 8.4 a left lites are normal renal profile Objective - Vital Signs Vital signs: Vital Signs Temp 100.0 F H 08/03/21 08:00 Pulse 81 08/03/21 10:00 Resp 28 H 08/03/21 10:00 BP 113/60 08/03/21 10:00 Pulse Ox 98 08/03/21 10:00 Intake & Output 08/02/21 08/03/21 08/03/21 18:59 06:59 18:59 Intake Total 1054 1381 254 Output Total 2460 935 150 Balance -1406 446 104 Weight 81.1 kg 81.1 kg Intake: IV 500 600 100 D5W 500 600 100 Intake, IV Titration 150 Amount Dextrose 5% in Water 1, 150 000 ml @ 50 mls/hr IV . Q20H [facility] Rx#:[id number] Tube Feeding 94 611 94 Blood Product 310 Rc As-1 Unit 310 [id number] Other 170 60 Output: Urine 2460 935 150 Other: Voiding Method Indwelling Catheter Indwelling Catheter # Bowel Movements 1 1 ABP, PAP, CO, CI - Last Documented Arterial Blood Pressure 163/56 - Exam Physical Exam: Revealed a 71-year-old female, intubated, mechanically ventilated, in no distress. Patient has a tracheostomy in place. Head: Atraumatic, normocephalic. Tracheostomy is intact. HEENT:[Neck is supple.] [No neck masses.] [No thyromegaly.] [No JVD.], EOMI, nonicteric., EOMI, nonicteric. Extremely dry mucous membranes. Chest: [Symmetrical chest expansion, good breath sound bilaterally slightly diminished on the left side anteriorly. Cardiac Exam: [Normal S1 and S2, no S3 gallop, no murmur.] Patient has a paced rhythm. Abdomen: [Soft, nontender, no megaly, no rebound, no guarding, normal bowel sounds.] Extremities: [No clubbing, no edema, no cyanosis.] Neurological Exam: Patient is awake, follows simple instructions, does not seem to be in distress but she is generally weak Psychiatric: Cannot assess. Skin: No rashes. - Labs CBC & Chem 7: 08/03/21 05:13 08/03/21 05:13 Labs: Abnormal Lab Results - Last 24 Hours (Table) 08/02/21 08/02/21 08/02/21 Range/Units 11:48 12:19 17:19 RBC 2.94 L (3.80-5.40) m/uL Hgb 8.6 L D (11.4-16.0) gm/dL Hct 27.5 L (34.0-46.0) % RDW 17.7 H (11.5-15.5) % Plt Count 50 L (150-450) k/uL Lymphocytes # (1.0-4.8) k/uL Sodium (137-145) mmol/L BUN (7-17) mg/dL Creatinine (0.52-1.04) mg/dL Glucose (74-99) mg/dL POC Glucose (mg/dL) 106 H 105 H (75-99) mg/dL Calcium (8.4-10.2) mg/dL AST (14-36) U/L ALT (4-34) U/L Total Protein (6.3-8.2) g/dL Albumin (3.5-5.0) g/dL 08/02/21 08/03/21 08/03/21 Range/Units 23:40 05:12 05:13 RBC 2.88 L (3.80-5.40) m/uL Hgb 8.4 L (11.4-16.0) gm/dL Hct 26.6 L (34.0-46.0) % RDW 17.5 H (11.5-15.5) % Plt Count 44 L (150-450) k/uL Lymphocytes # 0.5 L (1.0-4.8) k/uL Sodium (137-145) mmol/L BUN (7-17) mg/dL Creatinine (0.52-1.04) mg/dL Glucose (74-99) mg/dL POC Glucose (mg/dL) 129 H 123 H (75-99) mg/dL Calcium (8.4-10.2) mg/dL AST (14-36) U/L ALT (4-34) U/L Total Protein (6.3-8.2) g/dL Albumin (3.5-5.0) g/dL 08/03/21 Range/Units 05:13 RBC (3.80-5.40) m/uL Hgb (11.4-16.0) gm/dL Hct (34.0-46.0) % RDW (11.5-15.5) % Plt Count (150-450) k/uL Lymphocytes # (1.0-4.8) k/uL Sodium 135 L (137-145) mmol/L BUN 44 H (7-17) mg/dL Creatinine 0.35 L (0.52-1.04) mg/dL Glucose 121 H (74-99) mg/dL POC Glucose (mg/dL) (75-99) mg/dL Calcium 7.0 L (8.4-10.2) mg/dL AST 127 H (14-36) U/L ALT 171 H (4-34) U/L Total Protein 4.1 L (6.3-8.2) g/dL Albumin 1.8 L (3.5-5.0) g/dL Assessment and Plan Assessment: Impression: 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 Possible community-acquired pneumonia. Status post bronchoscopy on 07/31/2021 for left lung collapse. Right upper extremity DVT. However the patient cannot tolerate anticoagulation. Not to mention the patient had intracerebral bleed. Septic shock with multisystem organ failure Acute lupus encephalitis. Acute metabolic encephalopathy. 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 Acute kidney injury, improved over the last few days, creatinine today is 1.39 Acute shock liver, resolved. Underlying COPD, presently inactive Benign essential hypertension. History of pacemaker implantation. Coronary arteriosclerosis and previous CABG Valvular heart disease and mitral valve replacement acute Coumadin toxicity, treated and recovered Thrombocytopenia secondary to sepsis, no evidence of DIC Recommendation: Continue ventilatory support,alternate patient on trach collar and on ventilatory support continue enteral feeding Continue oral bicarb. Continue diuretics and Aldactone. Continue GI and DVT prophylaxis. Continue bronchodilators. Address placement issue with oncology social work, patient should be cleared to go to [facility]. Critical care time is over 30 minutes Time with Patient: Greater than 30
[2021-08-03 11:47] LABS: Glucose,Whole Blood 111 mg/dL (75-99)
--- NOTE | 2021-08-03 11:52 | P.PN ---
Subjective Progress Note Date: 08/03/21 CHIEF COMPLAINT: Respiratory failure HISTORY OF PRESENT ILLNESS: Patient is in the ICU. She is status post tracheostomy and PEG tube placement on 07/27/21. Patient had bleeding from her tracheostomy site. She was taken back to the OR on 07/27/21 for evaluation and control tracheostomy site bleeding. There was an area that required cauterization. Patient has had no further bleeding from the tracheostomy site. There is clearish pink tinged drainage from the trach site. PEG tube site no active bleeding. Patient tolerating tube feeds. She is at goal rate of 47 mL per hour. She's scheduled to be transferred to select specialty later today. She did have a low-grade temp of 100. WBC 7.6 hemoglobin 8.4 platelets 44 INR 1.0. Coumadin currently on hold. PHYSICAL EXAM: VITAL SIGNS: Reviewed. GENERAL: Well-developed in no acute distress. HEENT: Head is atraumatic, normocephalic. Tracheostomy site no active bleeding. There is clearish, pink tinged mucus from the tracheostomy site. ABDOMEN: Soft. Nondistended. PEG tube site clean dry and intact. There is some dry areas of blood noted ASSESSMENT: 1. Acute hypoxic respiratory failure secondary to lupus pneumonitis and possible community acquired pneumonia status post tracheostomy placement 2. Severe protein calorie malnutrition status post PEG tube placement 3. Sepsis 4. Thrombocytopenia PLAN: -Continue tube feeds at goal rate -Continue tracheostomy care -Continue supportive care -Possible discharge to select specialty later today Physician [employer]er note has been reviewed by physician. Signing provider agrees with the documented findings, assessment, and plan of care. I have personally seen and examined the patient, reviewed the REGISTERED RESPIRATORY TECHNICIAN /PAs history, exam and MDM and agree with the assessment and plan as written. Based on total visit time, I have performed more than 50% of the visit. As above: Patient was placed back on the ventilator over the last few days. No bleeding from the tracheostomy site. Anticoagulation still held. Continue to monitor for bleeding. Continue tube feeds at goal. Bolster loose and slightly. Objective - Vital Signs Vital signs: Vital Signs Temp 100.0 F H 08/03/21 08:00 Pulse 80 08/03/21 11:25 Resp 26 H 08/03/21 11:00 BP 123/57 08/03/21 11:00 Pulse Ox 98 08/03/21 11:00 Intake & Output 08/02/21 08/03/21 08/03/21 18:59 06:59 18:59 Intake Total 1054 1381 406 Output Total 2460 935 1150 Balance -1406 446 -744 Weight 81.1 kg 81.1 kg Intake: IV 500 600 150 D5W 500 600 150 Intake, IV Titration 150 Amount Dextrose 5% in Water 1, 150 000 ml @ 50 mls/hr IV . Q20H [facility] Rx#:[id number] Tube Feeding 94 611 196 Blood Product 310 Rc As-1 Unit 310 [id number] Other 170 60 Output: Urine 2460 935 1150 Other: Voiding Method Indwelling Catheter Indwelling Catheter # Bowel Movements 1 1 ABP, PAP, CO, CI - Last Documented Arterial Blood Pressure 163/56 - Labs CBC & Chem 7: 08/03/21 05:13 08/03/21 05:13 Labs: Abnormal Lab Results - Last 24 Hours (Table) 08/02/21 08/02/21 08/02/21 Range/Units 11:48 12:19 17:19 RBC 2.94 L (3.80-5.40) m/uL Hgb 8.6 L D (11.4-16.0) gm/dL Hct 27.5 L (34.0-46.0) % RDW 17.7 H (11.5-15.5) % Plt Count 50 L (150-450) k/uL Lymphocytes # (1.0-4.8) k/uL Sodium (137-145) mmol/L BUN (7-17) mg/dL Creatinine (0.52-1.04) mg/dL Glucose (74-99) mg/dL POC Glucose (mg/dL) 106 H 105 H (75-99) mg/dL Calcium (8.4-10.2) mg/dL AST (14-36) U/L ALT (4-34) U/L Total Protein (6.3-8.2) g/dL Albumin (3.5-5.0) g/dL 08/02/21 08/03/21 08/03/21 Range/Units 23:40 05:12 05:13 RBC 2.88 L (3.80-5.40) m/uL Hgb 8.4 L (11.4-16.0) gm/dL Hct 26.6 L (34.0-46.0) % RDW 17.5 H (11.5-15.5) % Plt Count 44 L (150-450) k/uL Lymphocytes # 0.5 L (1.0-4.8) k/uL Sodium (137-145) mmol/L BUN (7-17) mg/dL Creatinine (0.52-1.04) mg/dL Glucose (74-99) mg/dL POC Glucose (mg/dL) 129 H 123 H (75-99) mg/dL Calcium (8.4-10.2) mg/dL AST (14-36) U/L ALT (4-34) U/L Total Protein (6.3-8.2) g/dL Albumin (3.5-5.0) g/dL 08/03/21 08/03/21 Range/Units 05:13 11:46 RBC (3.80-5.40) m/uL Hgb (11.4-16.0) gm/dL Hct (34.0-46.0) % RDW (11.5-15.5) % Plt Count (150-450) k/uL Lymphocytes # (1.0-4.8) k/uL Sodium 135 L (137-145) mmol/L BUN 44 H (7-17) mg/dL Creatinine 0.35 L (0.52-1.04) mg/dL Glucose 121 H (74-99) mg/dL POC Glucose (mg/dL) 111 H (75-99) mg/dL Calcium 7.0 L (8.4-10.2) mg/dL AST 127 H (14-36) U/L ALT 171 H (4-34) U/L Total Protein 4.1 L (6.3-8.2) g/dL Albumin 1.8 L (3.5-5.0) g/dL Microbiology - Last 24 Hours (Table) 07/17/21 10:00 Acid Fast Bacilli Smear - Final Bronchial Washings - Random Acid Fast Bacilli Culture - Preliminary 07/26/21 08:15 Acid Fast Bacilli Smear - Final Bronchoalviolar Lavage - Left Acid Fast Bacilli Culture - Preliminary 07/11/21 12:45 Acid Fast Bacilli Smear - Final Bronchial Washings - Left Acid Fast Bacilli Culture - Preliminary
[2021-08-03 12:07] VITALS: TEMP 98.8
--- NOTE | 2021-08-03 13:00 | P.PN ---
Subjective Patient is seen for follow-up for acute kidney injury. Status post trach and PEG. Patient had bleeding from tracheostomy tube which is now controlled. Maintained on IV Lasix Peak creatinine this admission was 4.57. Pt was maintained on D5W and free water down feeding tube. Na down to 135 today. Good UOP Cr 0.35 today Objective - Vital Signs Vital signs: Vital Signs Temp 98.8 F 08/03/21 12:00 Pulse 81 08/03/21 12:00 Resp 26 H 08/03/21 12:00 BP 123/57 08/03/21 12:00 Pulse Ox 97 08/03/21 12:00 Intake & Output 08/02/21 08/03/21 08/03/21 18:59 06:59 18:59 Intake Total 1054 1381 406 Output Total 2460 935 1150 Balance -1406 446 -744 Weight 81.1 kg 81.1 kg Intake: IV 500 600 150 D5W 500 600 150 Intake, IV Titration 150 Amount Dextrose 5% in Water 1, 150 000 ml @ 50 mls/hr IV . Q20H [facility] Rx#:[id number] Tube Feeding 94 611 196 Blood Product 310 Rc As-1 Unit 310 [id number] Other 170 60 Output: Urine 2460 935 1150 Other: Voiding Method Indwelling Catheter Indwelling Catheter # Bowel Movements 1 1 ABP, PAP, CO, CI - Last Documented Arterial Blood Pressure 163/56 - Exam Awake, comfortable, on the vent status post trach and PEG tube Patient follows commands. Examination of the heart S1 and S2 Examination lungs bilateral breath sounds are heard Abdomen is soft Examination of lower extremities shows edema 2+ bilaterally - Labs CBC & Chem 7: 08/03/21 05:13 08/03/21 05:13 Labs: Abnormal Lab Results - Last 24 Hours (Table) 08/02/21 08/02/21 08/03/21 Range/Units 17:19 23:40 05:12 RBC (3.80-5.40) m/uL Hgb (11.4-16.0) gm/dL Hct (34.0-46.0) % RDW (11.5-15.5) % Plt Count (150-450) k/uL Lymphocytes # (1.0-4.8) k/uL Sodium (137-145) mmol/L BUN (7-17) mg/dL Creatinine (0.52-1.04) mg/dL Glucose (74-99) mg/dL POC Glucose (mg/dL) 105 H 129 H 123 H (75-99) mg/dL Calcium (8.4-10.2) mg/dL AST (14-36) U/L ALT (4-34) U/L Total Protein (6.3-8.2) g/dL Albumin (3.5-5.0) g/dL 08/03/21 08/03/21 08/03/21 Range/Units 05:13 05:13 11:46 RBC 2.88 L (3.80-5.40) m/uL Hgb 8.4 L (11.4-16.0) gm/dL Hct 26.6 L (34.0-46.0) % RDW 17.5 H (11.5-15.5) % Plt Count 44 L (150-450) k/uL Lymphocytes # 0.5 L (1.0-4.8) k/uL Sodium 135 L (137-145) mmol/L BUN 44 H (7-17) mg/dL Creatinine 0.35 L (0.52-1.04) mg/dL Glucose 121 H (74-99) mg/dL POC Glucose (mg/dL) 111 H (75-99) mg/dL Calcium 7.0 L (8.4-10.2) mg/dL AST 127 H (14-36) U/L ALT 171 H (4-34) U/L Total Protein 4.1 L (6.3-8.2) g/dL Albumin 1.8 L (3.5-5.0) g/dL Microbiology - Last 24 Hours (Table) 07/17/21 10:00 Acid Fast Bacilli Smear - Final Bronchial Washings - Random Acid Fast Bacilli Culture - Preliminary 07/26/21 08:15 Acid Fast Bacilli Smear - Final Bronchoalviolar Lavage - Left Acid Fast Bacilli Culture - Preliminary 07/11/21 12:45 Acid Fast Bacilli Smear - Final Bronchial Washings - Left Acid Fast Bacilli Culture - Preliminary Assessment and Plan Assessment: 1. Acute kidney injury secondary to ATN from septic shock. Creatinine peaked at 4.57 now down to 0.9 mg/dL. Losartan has been resumed. ANAs positive with low complements. Srsw-kjhxiu-rhbsqitm DNA antibody at 8 which is in the indeterminate range and all other serologies are negative. Free And lambda chains were elevated. Patient does have a history of lupus. She will need a kidney biopsy which can be done later on. Patient also had left ureteral stent placement this admission for obstructive uropathy 2. Disproportionately elevated B UN secondary to steroids currently improved 3. Septic shock from pneumonia status post bronchoscopy currently on the vent maintained on antibiotics 4. Acute hypoxic respiratory failure from pneumonia, currently on the vent. Status post trach and PEG 5. Shock liver currently improved 6. Left-sided hydronephrosis status post left ureteral stent placement on 07/16/2021 7. Hypernatremia associated with free water deficit maintained on D5W and free water down feeding tube 8. History of mitral valve repair Plan: D/c D5W D/c free watervia feeding tube. Repeat labs in am
[2021-08-03 13:06] VITALS: PULSE 82
--- NOTE | 2021-08-03 13:26 | DS ---
DISCHARGE SUMMARY This 71-year-old white female came in with pneumonia, multi-organ failure. 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 She had two bronchoscopies which showed Heidi. She was treated with antifungals and antibiotics for aspiration pneumonia. She greatly improved with IV steroids, with creatinine going from 4.3 down to normal range, 0.6 to 0.4, over a two- week period of time. She had acute hypoxemic respiratory failure secondary to total body shutdown and she had a trach and PEG. She had some bleeding issues from the trach site. She also had a 5 mm lesion in the brain that came and went on CT scans that was thought to be possibly a small hemorrhagic area. The day before she was discharged hemoglobin dropped to 6.8, for which a unit of blood was given, and she developed a DVT in the right upper extremity over IV line insertion. Platelets were running around 50 to 51, so anticoagulants were not given, especially with the drop in hemoglobin. Hematology was assessing this. She has a history of atrial fibrillation DVT so we were risking giving her anticoagulant. the small spot that cleared up in her brain versus trach site bleeding and now with drop in hemoglobin, so currently she has a DVT in the right upper subclavian area and she is not on anticoagulants. Hemoglobin is up to 8.4, white count 7.6. Normal renal profile after the IV steroids for multiple weeks. She is alert. She responds. She is getting better. She needs to go to [facility] for trach and PEG weaning. She is on enteral feedings. She is on oral bicarb, diuretics, Aldactone for hypertension, COPD, benign hypertension. She has a history of pacemaker, previous CABG, mitral valve replacement, for which she was on Coumadin at home, thrombocytopenia secondary to sepsis. No DIC. Metabolic encephalopathy, a small 5 mm possible hemorrhagic infarct which is resolved. Septic shock with multisystem organ failure secondary to most likely lupus and mild aspiration pneumonia with Heidi infection. She is greatly improving, but no anticoagulants have been given due to, as mentioned, the 5 mm spot on the brain which has resolved as well as some drop in hemoglobin and some trach tube bleeding. Prognosis is guarded. She will try to wean off the trach at [facility] and hope no more blood clots show up. MMODL / IJN: [id number] /
[2021-08-03 14:06] VITALS: BP 111/52; RESP 19
[2021-08-04] MEDS ORDERED: FUROSEMIDE 10 MG/ML 4 ML VIAL IV SCH (09:00)
--- NOTE | 2021-08-06 12:01 | CDI ---
Documentation Clarification Form Date: 08/06/2021 11:41:52 AM From: Maisha Kenny CCS, CCDS Admit Date: 07/09/2021 03:52:00 PM Patient Name: Argelia Nicholson Visit Number: [id number] Discharge Date: 08/03/2021 02:50:00 PM ATTENTION: The Clinical Documentation Specialists (CDI) and [facility] Coding Staff appreciate your assistance in clarifying documentation. Please respond to the clarification below the line at the bottom and electronically sign. The CDI & [facility] Coding staff will review the response and follow-up if needed. Please note: Queries are made part of the Legal Health Record. If you have any questions, please contact the author of this message via ITS. Dr. David Ambriz: Per the 07/30 Surgeon's Progress Note: The patient is status post Tracheostomy & PEG tube placement on 07/27. Patient had bleeding from her tracheostomy site. She was taken back to the OR yesterday for evaluation and to control tracheostomy site bleeding. Patient has had no further bleeding from the Tracheostomy site. Additional clarification is requested regarding the relationship, if any, that exists between the diagnosis and the procedure. Patients 07/27 Diagnosis: Respiratory Failure and Malnutrition Post-Operative Diagnosis 07/27: Same. Procedure performed 07/27: Tracheostomy, EGD with PEG tube placement 07/29 Procedure Note: The patient was kept in the ICU for the procedure, under general anesthesia, previous sutures were removed, a clot was seen adherent to the left side of the tracheostomy defect, this was evacuated. A small area of oozing from the strap muscle was seen and cauterized. History/Risk Factors per the 07/09 H/P: COPD, Pacemaker, CHF, CAD and Recurrent Pneumonia. Clinical Indicators: The patient initially presented to the ED as a transfer from [facility] with hypoxia and upper respiratory infection. She was hospitalized 6 weeks ago for pneumonia & transferred to [facility] for a pacemaker change, dc'd home on antibiotics. She was hypoxic in the [place] ED. Arrived to [facility] on 6L nc with PO 96%. Admitted with Hypoxia, Recurrent Pneumonia and Heart Failure 07/11 The patient was transferred to the ICU & placed on BiPAP, subsequently intubated. 07/23 Extubation was attempted. 07/27 Trach & PEG placed H & H: 07/09 Hgb 9.8, Hct 31.4 07/27 Hgb 8.5, Hct 27.3 07/30 Hgb 8.0, Hct 25.9 08/02 Hgb 6.8, Hct 22.7 Treatment: Procedures as above. 07/31: IV Diprivan, po Na Bicarb 650 mg Daily, IV Desmopressin 56 mls @ 200 mls/hr x1. 08/01: K Bicarb 20 meq NGT 08/02: IV mag Sulfate 100 mls @ 100 mls/hr q1H 08/02: Transfusion PRBCs 1 unit What relationship, if any, exists between the diagnosis of Bleeding from the Tracheostomy Site and the procedure: [ ] Bleeding from the Tracheostomy Site is a complication of surgical procedure [ ] Bleeding from the Tracheostomy Site is an expected outcome of the surgical procedure [ ] Bleeding from the Tracheostomy Site is related to patients co-morbid condition(s) of, please specify: and is not a complication of the procedure [ XX ] Other please specify: ___No active bleeding seen at the time of reexploration. Some of the bleeding was suspected to be related to epistaxis and oral pharyngeal bleeding. [ ] Unable to determine (Template Last Revised: May 2020) MTDD
--- NOTE | 2021-08-07 06:22 | CDI ---
Documentation Clarification Form Date: 08/07/21 From: Laverne Thomas Admit Date: 07/09/2021 03:52:00 PM Patient Name: Argelia Nicholson Visit Number: [id number] Discharge Date: 08/03/2021 02:50:00 PM ATTENTION: The Clinical Documentation Specialists (CDI) and [facility] Coding Staff appreciate your assistance in clarifying documentation. Please respond to the clarification below the line at the bottom and electronically sign. The CDI & [facility] Coding staff will review the response and follow-up if needed. Please note: Queries are made part of the Legal Health Record. If you have any questions, please contact the author of this message via ITS. Dr. Beckie Angel, Atrial Flutter is documented PNs starting with 07/25 - 08/03. Additional clarification regarding the type of Atrial Flutter is requested. History/Risk factors: PAF, candidial pneumonia, ATN, right parietal hemorrhage, acute liver shock, cerebral edema, aspiration pneumonia, Lupus pneumonia/encephalitis/nephropathy, sepsis, severe PCM, septic shock, HTN w acute on chronic diastolic CHF, metabolic/toxic encephalopathy, acute hypoxic respiratory failure Clinical Indicators: Per your 07/25 PN "she is in atrial flutter". EKG/telemetry: no monitor strips or EKG available Treatment: Due to hemorrhage off anticoagulants. Please clarify the type of Atrial Flutter, if known: [ ] Typical/Type I [ ] Atypical/Type II [ ] Other, please specify [ ] Unable to determine MTDD
--- NOTE | 2021-08-10 23:29 | P.PN ---
Subjective Progress Note Date: 08/03/21 Principal diagnosis: Pneumonia Patient is a 71-year-old female with a past medical history significant for COPD and recent admission to [facility] for pneumonia pr esented to hospital with increasing shortness of breath and cough with a CT suspicious for left lower lobe pneumonia. The patient is status post cystoscopy and left ureteral stent placement completed on 07/16/2021, the patient went into respiratory distress evening of 07/25/2021 and got reintubated, the patient is status post bronchoscopy completed on 07/26/2021, patient is scheduled for a trach and PEG 07/27/2021 On today's evaluation that is 08/03/2021, the patient remains to be afebrile , the patient is hemodynamically stable , the patient FiO2 is stable at 35 %, no further bleeding around the ET and no purulent secretions, patient is tolerating her tube feeds and no diarrhea has been reported by nursing staff Objective - Vital Signs Vital signs: Vital Signs Temp 98.8 F 08/03/21 12:00 Pulse 82 08/03/21 14:00 Resp 19 08/03/21 14:00 BP 111/52 08/03/21 14:00 Pulse Ox 100 08/03/21 14:00 Intake & Output 08/03/21 08/03/21 08/04/21 06:59 18:59 06:59 Intake Total 1381 589 Output Total 935 2275 Balance 446 -1686 Weight 81.1 kg 81.1 kg Intake: IV 600 150 D5W 600 150 Tube Feeding 611 349 Other 170 90 Output: Urine 935 2275 Other: Voiding Method Indwelling Catheter Indwelling Catheter # Bowel Movements 1 ABP, PAP, CO, CI - Last Documented Arterial Blood Pressure 163/56 - Exam GENERAL DESCRIPTION: An elderly female intubated on the vent RESPIRATORY SYSTEM: Unlabored breathing , decreased breath sounds at bases HEART: S1 S2 regular rate and rhythm , ABDOMEN: Soft , no tenderness EXTREMITIES: No edema feet - Labs CBC & Chem 7: 08/03/21 05:13 08/03/21 05:13 Labs: Abnormal Lab Results - Last 24 Hours (Table) 08/02/21 08/03/21 08/03/21 Range/Units 23:40 05:12 05:13 RBC 2.88 L (3.80-5.40) m/uL Hgb 8.4 L (11.4-16.0) gm/dL Hct 26.6 L (34.0-46.0) % RDW 17.5 H (11.5-15.5) % Plt Count 44 L (150-450) k/uL Lymphocytes # 0.5 L (1.0-4.8) k/uL Sodium (137-145) mmol/L BUN (7-17) mg/dL Creatinine (0.52-1.04) mg/dL Glucose (74-99) mg/dL POC Glucose (mg/dL) 129 H 123 H (75-99) mg/dL Calcium (8.4-10.2) mg/dL AST (14-36) U/L ALT (4-34) U/L Total Protein (6.3-8.2) g/dL Albumin (3.5-5.0) g/dL 08/03/21 08/03/21 Range/Units 05:13 11:46 RBC (3.80-5.40) m/uL Hgb (11.4-16.0) gm/dL Hct (34.0-46.0) % RDW (11.5-15.5) % Plt Count (150-450) k/uL Lymphocytes # (1.0-4.8) k/uL Sodium 135 L (137-145) mmol/L BUN 44 H (7-17) mg/dL Creatinine 0.35 L (0.52-1.04) mg/dL Glucose 121 H (74-99) mg/dL POC Glucose (mg/dL) 111 H (75-99) mg/dL Calcium 7.0 L (8.4-10.2) mg/dL AST 127 H (14-36) U/L ALT 171 H (4-34) U/L Total Protein 4.1 L (6.3-8.2) g/dL Albumin 1.8 L (3.5-5.0) g/dL Microbiology - Last 24 Hours (Table) 07/17/21 10:00 Acid Fast Bacilli Smear - Final Bronchial Washings - Random Acid Fast Bacilli Culture - Preliminary 07/26/21 08:15 Acid Fast Bacilli Smear - Final Bronchoalviolar Lavage - Left Acid Fast Bacilli Culture - Preliminary 07/11/21 12:45 Acid Fast Bacilli Smear - Final Bronchial Washings - Left Acid Fast Bacilli Culture - Preliminary Assessment and Plan (1) Pneumonia Status: Acute Code(s): J18.9 - PNEUMONIA, UNSPECIFIED ORGANISM SNOMED Code(s): 818027637 Plan: 1patient presented to hospital with acute respiratory failure with in this patient did have hypoxemia increasing shortness of breath and cough with evide nce of left lower lobe pneumonia on the CT and recently admitted and treated at [facility] and concerning for a gram-negative pneumonia sputum and bronchial culture were negative , patient did have initial improvement however subsequently did have worsening of respiratory status requiring intubation possible mucus plugging status post bronchoscopy and repeat culture are so far negative, patient is status post trach and PEG, patient is slowly clinically improving and will continue with Zosyn for another 7 days to finish a course of therapy Time with Patient: Less than 30
== END 2021-08-03 14:50 | DRG 3 ==
LOC: EC 12:07 → 3SCARD 15:52 → 2SICU 07-11 02:57
PROVIDERS: ADMIT Family Medicine; ATTEND Family Medicine
DX: B37.1 Pulmonary candidiasis (principal); J69.0 Pneumonitis due to inhalation of food and vomit; N17.0 Acute kidney failure with tubular necrosis; I61.1 Nontraumatic intracerebral hemorrhage in hemisphere, cortical; K72.00 Acute and subacute hepatic failure without coma; G93.6 Cerebral edema; G05.3 Encephalitis and encephalomyelitis in diseases classified elsewhere; E43 Unspecified severe protein-calorie malnutrition; R65.21 Severe sepsis with septic shock; I50.33 Acute on chronic diastolic (congestive) heart failure; G92.8 Other toxic encephalopathy; I21.A1 Myocardial infarction type 2; J15.6 Pneumonia due to other Gram-negative bacteria; J96.01 Acute respiratory failure with hypoxia; G72.81 Critical illness myopathy; G62.81 Critical illness polyneuropathy; T17.890A Other foreign object in other parts of respiratory tract causing asphyxiation, initial encounter; E87.4 Mixed disorder of acid-base balance; J44.0 Chronic obstructive pulmonary disease with (acute) lower respiratory infection; J44.1 Chronic obstructive pulmonary disease with (acute) exacerbation; R64 Cachexia; D68.9 Coagulation defect, unspecified; K82.1 Hydrops of gallbladder; I77.2 Rupture of artery; R18.8 Other ascites; N13.30 Unspecified hydronephrosis; K52.1 Toxic gastroenteritis and colitis; E87.0 Hyperosmolality and hypernatremia; I82.621 Acute embolism and thrombosis of deep veins of right upper extremity; E87.1 Hypo-osmolality and hyponatremia; I82.401 Acute embolism and thrombosis of unspecified deep veins of right lower extremity; I48.92 Unspecified atrial flutter; J98.19 Other pulmonary collapse; M32.13 Lung involvement in systemic lupus erythematosus; B37.7 Candidal sepsis; D69.59 Other secondary thrombocytopenia; M32.19 Other organ or system involvement in systemic lupus erythematosus; M32.14 Glomerular disease in systemic lupus erythematosus; I11.0 Hypertensive heart disease with heart failure; I48.0 Paroxysmal atrial fibrillation; Z20.822 Contact with and (suspected) exposure to COVID-19; E83.51 Hypocalcemia; R13.10 Dysphagia, unspecified; J39.8 Other specified diseases of upper respiratory tract; Y95 Nosocomial condition; B37.0 Candidal stomatitis; B37.89 Other sites of candidiasis; R04.0 Epistaxis; E78.5 Hyperlipidemia, unspecified; I49.3 Ventricular premature depolarization; E87.6 Hypokalemia; E83.42 Hypomagnesemia; I08.3 Combined rheumatic disorders of mitral, aortic and tricuspid valves; K80.20 Calculus of gallbladder without cholecystitis without obstruction; I25.10 Atherosclerotic heart disease of native coronary artery without angina pectoris; T45.515A Adverse effect of anticoagulants, initial encounter; T36.95XA Adverse effect of unspecified systemic antibiotic, initial encounter; T38.0X5A Adverse effect of glucocorticoids and synthetic analogues, initial encounter; Z68.29 Body mass index [BMI] 29.0-29.9, adult; Z79.01 Long term (current) use of anticoagulants; Z79.899 Other long term (current) drug therapy; Z87.01 Personal history of pneumonia (recurrent); Z87.891 Personal history of nicotine dependence; Z95.810 Presence of automatic (implantable) cardiac defibrillator; Z95.2 Presence of prosthetic heart valve; Z95.1 Presence of aortocoronary bypass graft; Z98.890 Other specified postprocedural states; Z71.3 Dietary counseling and surveillance; Z91.048 Other nonmedicinal substance allergy status; Z82.49 Family history of ischemic heart disease and other diseases of the circulatory system
CPT/HCPCS: 31624; 36415; 36573; 36600; 43246; 70450; 71045; 71250; 74150; 74420; 76770; 80048; 80053; 81001; 82140; 82232; 82330; 82533; 82570; 82805; 83010; 83516; 83605; 83615; 83735; 83880; 83883; 84100; 84132; 84145; 84156; 84165; 84295; 84478; 84484; 85025; 85027; 85379; 85384; 85610; 85613; 85730; 86038; 86039; 86140; 86147; 86160; 86162; 86225; 86255; 86334; 86335; 86704; 86706; 86850; 86900; 86901; 86920; 87040; 87070; 87102; 87116; 87205; 87206; 87252; 87324; 87340; 87496; 87498; 87502; 87529; 87634; 87635; 87798; 88108; 88305; 89050; 93005; 93306; 93970; 94002; 94003; 94640; 94660; 94667; 94668; 95816; 99285